=== PATIENT | male | born 1985 | race Caucasian/White ===

== ENCOUNTER 2019-04-11 15:19 | Emergency (ER) | payer SELFPAY ==
[~2019-04-11] VITALS: Ht 188 cm; Wt 90.7 kg
== END 2019-04-11 20:58 | disposition short-term general hospital (02) ==
LOC: ED 15:19
DX: N15.1 Renal and perinephric abscess (principal); N12 Tubulo-interstitial nephritis, not specified as acute or chronic; F17.200 Nicotine dependence, unspecified, uncomplicated; Z88.0 Allergy status to penicillin
CPT/HCPCS: 74177; 80053; 81001; 83605; 83690; 85025; 99285-25; J0696; J1170; J2270; J2405; J7030

== ENCOUNTER 2019-05-09 23:42 | Emergency (ER) | payer OTHER ==
[~2019-05-09] VITALS: Ht 188 cm; Wt 93.0 kg
--- OUTSIDE RECORDS SUMMARY | ~2019-05-09 | XMS | Encounter Summary ---
Demographics + + + | Address | [address] | | | [place] [address] | + + + | Home Phone | | + + + | Preferred Language | Unknown | + + + | Marital Status | Single | + + + | Oriental Orthodox Affiliation | Unknown | + + + | Race | Unknown | + + + | Ethnic Group | Unknown | + + + Author + + + | Author | [facility] | | | and [place] | + + + | Organization | [facility] | | | and [place] | + + + | Address | Unknown | + + + | Phone | Unavailable | + + + Support + + +---------+ + | Name | Relationship | Address | Phone | + + +---------+ + | Lourdes Jhaveri | ECON | Unknown | | + + +---------+ + Care Team Providers + +------+ + | Care Anime Designer Name | Role | Phone | + +------+ + | No, Physician | PCP | Unavailable | + +------+ + Reason for Visit Auth/Cert +--------+--------+ + + + + | Status | Reason | Specialty | Diagnoses / | Referred By | Referred To | | | | | Procedures | Contact | Contact | +--------+--------+ + + + + | | | | Diagnoses | | | | | | | perinephric | | | | | | | abscess | | | +--------+--------+ + + + + Encounter Details +--------+ + + + + | Date | Type | Department | Care Team | Description | +--------+ + + + + | 04/11/ | Hospital | [facility] | David Calvin, | Kidney, perinephric | | 2019 - | Encounter | [facility] | DO [address] | abscess; | | | | [address] | [place] [address] | Pyelonephritis; | | 05/07/ | [address] | [phone] | Tobacco abuse; | | 2019 | | [place], [place] | | Hepatitis C virus | | | | [phone] | Teresita Do MD | infection without | | | | [phone] | [address] | hepatic coma, | | | | | [place] [address] | unspecified | | | | | [phone] | chronicity; MRSA | | | | | | infection; IV drug | | | | | Daron Mendoza MD | user; Renal abscess, | | | | | [address] | left | | | | | [place] [address] | | | | | | [phone] | | | | | | | | | | | | Milagro Zambrano MD | | | | | | [address] | | | | | | [place] [address] | | | | | | [phone] | | | | | | | | | | | | Inez Avila DO | | | | | | [address] | | | | | | [place] [address] | | | | | | [phone] | | | | | | | | +--------+ + + + + Social History + +-------+ +--------+ + | Tobacco Use | Types | Packs/Day | Years | Date | | | | | Used | | + +-------+ +--------+ + | Current Every Day | | 0.5 | 24 | Started: 04/11/1995 | | Smoker | | | | | + +-------+ +--------+ + + +---+---+---+ | Smokeless Tobacco: | | | | | Never Used | | | | + +---+---+---+ + + | Tobacco Cessation: Ready to Quit: No | | Comments: declined | + + + + +---------+ + | Alcohol Use | Drinks/Week | oz/Week | Comments | + + +---------+ + | Not Currently | | | Last drink was 9 mos | | | | | ago, per pt | + + +---------+ + + + + | Sex Assigned at | Date Recorded | | | | + + + | Not on file | | + + + + + + + | Job Start Date | Occupation | Industry | + + + + | Not on file | Not on file | Not on file | + + + + + + + + | Travel History | Travel Start | Travel End | + + + + + + | No recent travel history available. | + + documented as of this encounter Last Filed Vital Signs + + + + + | Vital Sign | Reading | Time Taken | Comments | + + + + + | Blood Pressure | 147/78 | 05/07/2019 12:45 PM | | | | | PST | | + + + + + | Pulse | 89 | 05/07/2019 12:45 PM | | | | | PST | | + + + + + | Temperature | 36.8 C (98.3 F) | 05/07/2019 12:45 PM | | | | | PST | | + + + + + | Respiratory Rate | 20 | 05/07/2019 12:45 PM | | | | | PST | | + + + + + | Oxygen Saturation | 98% | 05/07/2019 12:45 PM | | | | | PST | | + + + + + | Inhaled Oxygen | - | - | | | Concentration | | | | + + + + + | Weight | 94 kg (207 lb 3.7 | 05/06/2019 8:15 PM | | | | oz) | PST | | + + + + + | Height | 188 cm (6' 2") | 04/11/2019 10:47 PM | | | | | PDT | | + + + + + | Body Mass Index | 26.61 | 04/11/2019 10:47 PM | | | | | PDT | | + + + + + documented in this encounter Functional Status + + + + | Functional Status | Response | Date of Assessment | + + + + | Are you blind or do you have serious | No | 04/11/2019 | | difficulty seeing, even when wearing | | | | glasses? | | | + + + + | Do you have serious difficulty walking or | No | 04/11/2019 | | climbing stairs? (5 years old or older) | | | + + + + | Do you have difficulty dressing or bathing? | No | 04/11/2019 | | (5 years old or older) | | | + + + + | Because of a physical, mental, or emotional | No | 04/11/2019 | | condition, do you have difficulty doing | | | | errands alone such as visiting a doctor's | | | | office or shopping? [15 years old or | | | | older)] | | | + + + + + + + + | Cognitive Status | Response | Date of Assessment | + + + + | Because of a physical, mental, or emotional | No | 04/11/2019 | | condition, do you have serious difficulty | | | | concentrating, remembering, or making | | | | decisions? (5 years old or older) | | | + + + + documented as of this encounter Medications at Time of Discharge + + + +---------+ + + | Medication | Sig | Dispensed | Refills | Start | End Date | | | | | | Date | | + + + +---------+ + + | DAPTOmycin | Inject 500 mg into | 22 each | 0 | 04/18/20 | | | (CUBICIN) IVPB 6 | the vein every 24 | | | 19 | 9 | | mg/kg = 500 | hours for 22 days. | | | | | | mgIndications: | Outpatient IV | | | | | | Intra-Abdominal | antibiotics will | | | | | | Infection | start following | | | | | | | discharge from the | | | | | | | hospital, regardless | | | | | | | of the indicated | | | | | | | start date on the | | | | | | | prescription. The | | | | | | | stop date IS CORRECT | | | | | | | regardless of the | | | | | | | quantity indicated. | | | | | | | The stop date is | | | | | | | inclusive, meaning | | | | | | | all scheduled doses | | | | | | | must be given on the | | | | | | | date that is listed | | | | | | | as the stop date. | | | | | | | Indications: | | | | | | | Infection Within the | | | | | | | Abdomen | | | | | + + + +---------+ + + documented as of this encounter Progress Notes David Morataya MD - 05/07/2019 12:36 PM PSTFormatting of this note might be different fro m the original. Interventional Radiology Progress Note Patient Name: Timothy Conrad Date of : 1985 Consulting Provider: David Morataya MD, MD, PhD Interval History/Subjective: Timothy Conrad is a 34 y.o. male with recurrent left renal abscess, leukocytosis. Request for drainage. Labs: 3 Day Labs: Recent Labs Lab 05/07/19 0446 05/06/19 1336 05/05/19 0430 05/04/19 0628 05/03/19 0445 WBC 11.02* 13.57* 14.37* -- -- 10.62 HGB 11.3* 12.0* 12.1* -- -- 12.0* HCT 33.6* 36.0* 36.3* -- -- 36.2* PLT 190 226 223 -- -- 265 NA 134* -- 137 -- -- 139 K 4.0 -- 3.9 4.2 < > 3.8 CL 100 -- 102 -- -- 105 CO2 31 -- 31 -- -- 31 BUN 9 -- 10 -- -- 7* CALCIUM 8.8 -- 8.8 -- -- 9.0 < > = values in this interval not displayed. Pertinent Imaging/Procedures: Ct Abdomen W Contrast Result Date: 04/15/2019 CT ABDOMEN WITH CONTRAST CLINICAL INFORMATION: Follow-up renal abscess drainage. COMPARISON : CT GUIDED DRAIN ABSCESS (04/12/2019); PROCEDURE: Axial images through the abdomen after th e administration of 100 mL Omnipaque 350 intravenous contrast. Multiplanar reconstructions. At least one of the following CT dose optimization techniques were used: Automated exposure control; Adjustment of mA and/or kV according to patient size; Use of iterative reconstruct ion technique. FINDINGS: LUNG BASES: No significant pulmonary abnormality. No pleural effusi on or pneumothorax. ABDOMEN Liver and Biliary: Increased craniocaudal length of liver measur ing 24.2 cm. Mild periportal edema. The gallbladder is partially distended. No biliary di lation. Pancreas, Spleen and Adrenals: Enlarged spleen measuring approximately 16.5 cm in cr aniocaudal length. Normal pancreas and both adrenals. Kidneys: The right kidney is normal i n size and enhancement pattern. Enlarged edematous left kidney with pararenal edema. There is decreased enhancement in lower pole of the left kidney with a heterogeneous attenuation a germain measuring 6.3 x 4.7 x 4.8 cm, image 88/series 3, image 49/series 6. Additional smaller intrarenal area of heterogeneous attenuation in interpolar left kidney measuring 3.2 x 3.1 x 2.9 cm. There is marked infiltration of pararenal fat with thickening of anterior and post erior pararenal fascia. Percutaneous pigtail catheter in-situ in left posterior pararenal s pace. Bowel: No small bowel or colonic dilation or adjacent inflammation. Vessels: No signif icant abnormality in the aorta or its proximal branches. No significant abnormality in the p ortal veins, mesenteric veins or systemic veins. Lymph Nodes: Multiple enlarged retroperiton eal lymph nodes. The index left para-aortic lymph node measuring 1.4 cm, image 84/series 3, nonspecific, probably reactive. The index inter aortocaval lymph node measuring 1.6 cm, im age 95/series 3. Peritoneum and Retroperitoneum: Small amount of fluid in left paracolic gut ter. Retroperitoneal left pararenal fat infiltration with thickening of anterior and early childhood education coordinator ior pararenal fascia. No pneumoperitoneum. BODY WALL Soft Tissues: No bowel or inflamed fat containing hernia, mass or hemorrhage. Mildly elevated right dome of the diaphragm. Mild subcutaneous edema of the body wall. Small fat containing paraumbilical hernia. Bones: No a cute fracture or vertebral end plate destruction. No lytic or blastic lesion. Moderate dege nerative disc disease at L4-L5 and L5-S1. Multiple Schmorl nodes at L4-L5. *Complicated acute left pyelonephritis with intrarenal abscess/phlegmon in lower pole of th e left kidney measuring 6.3 x 4.7 x 4.8 cm, causing renal capsular bulge. *Additional area o f focal pyelonephritis/small organized abscess or phlegmon in interpolar left kidney measuri ng 3.2 x 3.1 x 2.9 cm. Adjacent pigtail catheter in-situ in left posterior pararenal space. Interval decrease in size of the left pararenal abscess, status post percutaneous drainage. *Small amount of free fluid in left paracolic gutter. *Multiple enlarged retroperitoneal lym ph nodes, nonspecific, probably reactive. *Hepatosplenomegaly. *Additional findings as detai led above. Signed by: Liza Zeng, Arnold Sign Date/Time: 04/15/2019 12:[address] Abdomen Pelvis W Contrast Result Date: 05/05/2019 CT ABDOMEN AND PELVIS WITH CONTRAST CLINICAL INFORMATION: Renal cyst. Follow up. COMPARISON : CT ABDOMEN PELVIS W CONTRAST (04/20/2019) PROCEDURE: Axial images through the abdomen and pelvis after the administration of 100 ml Omnipaque 350 intravenous contrast. Multiplanar re constructions. At least one of the following CT dose optimization techniques were used: Auto mated exposure control; Adjustment of mA and/or kV according to patient size; Use of iterati ve reconstruction technique. FINDINGS: LUNG BASES: No significant abnormality appreciated. A BDOMEN Liver and Biliary: Liver appears unremarkable. Gallbladder appears to be contracted. Pancreas, Spleen and Adrenals: Mild splenomegaly. The pancreas, and adrenal glands appear unremarkable. Kidneys: Interval removal of the previously noted percutaneous drainage cathet er in the lower pole the left kidney. Heterogeneous round density in the lower pole of the kidney measuring approximately 5 cm x 5.3 cm, previously 6 cm x 5 cm. Moderate stranding, a nd small amount of perinephric hemorrhagic material, unchanged. 1 Right kidney appears unrem arkable. ABDOMEN AND PELVIS Bowel: Appendix is seen on series 2, image 140 and appears unrem arkable. No bowel obstruction or ileus seen. Vessels: Aorta does not appear aneurysmal. Mi ld atherosclerosis Lymph Nodes: Multiple enlarged abdominal and pelvic lymph nodes appear un changed. Peritoneum and Retroperitoneum: No ascites or free air seen. PELVIS Genitourinary: Urinary bladder appears to be mildly distended BODY WALL Soft Tissues: No significant abnorm ality appreciated. Bones: No acute or destructive osseous process seen. 1. Interval removal of the previously noted percutaneous drainage catheter in the lower bassam e the left kidney. Heterogeneous round density in the lower pole of the kidney measuring ap proximately 5 cm x 5.3 cm, previously 6 cm x 5 cm. Differential considerations include malig nawaf, hemorrhagic mass, and/or hematoma. 2. Abdominal and pelvic lymphadenopathy, unchanged , concerning for metastatic disease. 3. Mild splenomegaly. Signed by: Liza Fulton, Steve Sign Date/Time: 05/05/2019 8:[address] Abdomen Pelvis W Contrast Result Date: 04/20/2019 CT ABDOMEN AND PELVIS WITH CONTRAST CLINICAL INFORMATION: Abdominal infection suspected. fo llow-up renal and perirenal abscesses, r/o abdominal abscess. COMPARISON: CT GUIDED DRAIN AB SCESS (04/16/2019); CT ABDOMEN W CONTRAST (04/15/2019); CT GUIDED DRAIN ABSCESS (04/12/2019) ; PROCEDURE: Axial images through the abdomen and pelvis after the administration of 100 ml Omnipaque 350 intravenous contrast. Multiplanar reconstructions. At least one of the followi ng CT dose optimization techniques were used: Automated exposure control; Adjustment of mA a nd/or kV according to patient size; Use of iterative reconstruction technique. FINDINGS: RAS G BASES: No significant pulmonary abnormality. No pleural effusion or pneumothorax. Some as ymmetric scarring in the right lung base. Stable. ABDOMEN Liver and Biliary: No solid hepati c lesion, but there is diffuse periportal edema. No cirrhosis. Vascular enhancement. Chelsea ures 24 cm in the superior inferior dimension at the level of the midclavicular line. Gallbl adder not distended, no gallstones or pericholecystic fluid. Pancreas: Normal to technique w ithout peripancreatic fluid collection or intrinsic lesion Spleen: Marked splenomegaly but w ithout nearby fluid or adjacent lesion. Measures about 15 x 8 x 16 cm. Normal adrenals Kidn eys: Structurally normal right kidney. Left kidney: Known intrasubstance parenchymal abscess in the midbody in lower pole of the left kidney, now approximated by pigtail catheter. The fluid collection immediately inferior to the left kidney measures about 3.7 by 3.7 by 1.9 cm and may not be drained by the catheter. With marked inflammatory changes in the anterior pa ra and perinephric renal spaces on the left and the pole left kidney seems edematous and sylvie ewhat enlarged-especially the lower pole. Likely postprocedural gas about the catheter ABDO MEN AND PELVIS Bowel: No small bowel or colonic dilation or adjacent inflammation. No append iceal dilation or inflammation. Vessels: No significant abnormality in the aorta or its prox imal branches. No significant abnormality in the portal veins, mesenteric veins or systemic veins. Lymph Nodes: Marked periaortic retroperitoneal lymphadenopathy and marked confluent l ymphadenopathy at the gerson hepatitis. Compared to the prior examination, these findings are preexistent, and stable to technique. No free air. No ascites. PELVIS Genitourinary: Dista l ureters and bladder appear normal. No pelvic masses. BODY WALL Soft Tissues: No bowel or inflamed fat containing hernia, mass or hemorrhage. Bones: Focal disc endplate disease at L4 -5 with osteophytosis, subchondral sclerosis and cystic changes 1. Pigtail catheter now centrally located in the central phlegmonous section of the mid lo wer pole of the left kidney Marked local inflammatory changes and edema. Preexistent and wi thin the spectrum of expected evolving findings with severe renal infection and intervention 2. Pimento like perinephric inflammatory fluid collection inferior to the lower pole of t he left kidney. An appreciable collection of stable infected fluid, not seemingly drained b y the catheter. 3. Marked but stable retroperitoneal lymphadenopathy and marked confluent l ymphadenopathy in the gerson hepatitis. 4. Periportal edema and hepatosplenomegaly Signed by : Liza Alex, Maverick Sign Date/Time: 04/20/2019 1:[address] Guided Drain Abscess Result Date: 04/17/2019 CT GUIDED LEFT KIDNEY ABSCESS DRAINAGE CLINICAL INFORMATION: 34-year-old male with left luisa al abscess and perinephric abscess status post perinephric abscess drainage. Patient contin ues to have leukocytosis and intermittent fevers and drainage of the left intraparenchymal r enal abscess is requested. COMPARISON: None. PROCEDURE: The risks, benefits and alternatives were discussed with the patient; consent was obtained and placed in the patient's chart. Th e risks included but were not limited to bleeding, infection, non target organ injury. The p atient was placed in the CT scanner and imaging was obtained through the abdomen. A reprodu cible target was demonstrated. The skin overlying the site of interest was localized and mar ked. The skin was sterilely prepped and draped in the usual fashion. Local lidocaine was adm inistered in the skin and underlying tissues. A wire was passed through the existing cathet er into the perinephric abscess. This collection was in line with the intraparenchymal crow l abscess. A new catheter with metal stiffener was passed over the wire, the wire were kendell charly, and stylette introduced into the metal stiffener. The catheter was advanced as a unit into the intraparenchymal renal abscess. The inner stylet was removed, a wire was passed in to the intra parenchymal abscess, and images acquired confirming positioning. Next, the meta l stiffener was removed and the catheter advanced and formed over the wire. The position wa s confirmed with CT and the catheter was secured to the skin. The patient tolerated the pro cedure well without complication. Conscious sedation was administered. The nurse administer ed fentanyl medications during the examination and monitored blood pressure, heart rate, and pulse oximeter. Physician intraservice time of 30 minutes. At least one of the following CT dose optimization techniques were used: Automated exposure control; Adjustment of mA and/or kV according to patient size; Use of iterative reconstruction technique. FINDINGS: CT ident ified the intraparenchymal left renal abscess which was selected for drainage. Intra procedu ral imaging confirmed appropriate catheter placement. Post procedure imaging showed no evide nce for complication. Successful CT-guided left intraparenchymal renal abscess drainage. Signed by: Liza Morataya David Sign Date/Time: 04/17/2019 6:[address] Guided Drain Abscess Result Date: 04/13/2019 CT GUIDED LEFT PERINEPHRIC ABSCESS DRAINAGE CLINICAL INFORMATION: 34-year-old male with lef t perinephric abscess. COMPARISON: None. PROCEDURE: The risks, benefits and alternatives wer e discussed with the patient; consent was obtained and placed in the patient's chart. The ri sks included but were not limited to bleeding, infection, non target organ injury. The patie nt was placed in the CT scanner and imaging was obtained through the abdomen and pelvis. A reproducible target was demonstrated. The skin overlying the site of interest was localized and marked. The skin was sterilely prepped and draped in the usual fashion. Local lidocaine was administered in the skin and underlying tissues, and a tiny dermatotomy was made. Under CT guidance, a 18 gauge needle system was used to access the target. A wire was positioned t hrough the needle system into the fluid collection. Serial dilatation was performed to the a ppropriate level and a 10 Spanish multipurpose drainage catheter was placed and secured to th e skin under CT guidance. The patient tolerated the procedure well without complication. Con scious sedation was administered. The nurse administered fentanyl and Versed medications du ring the examination and monitored blood pressure, heart rate, and pulse oximeter. Physician intraservice time of 30 minutes. At least one of the following CT dose optimization techniq ues were used: Automated exposure control; Adjustment of mA and/or kV according to patient s ize; Use of iterative reconstruction technique. FINDINGS: CT identified the left perinephric abscess, which was selected for drainage. Intra procedural imaging confirmed appropriate ca theter placement. Post procedure imaging showed no evidence for complication. Successful CT-guided left perinephric abscess drainage. Signed by: Liza Morataya David Sign Date/Time: 04/13/2019 6:[address] Guided Drain Abscess Renal Result Date: 04/24/2019 CT GUIDED DRAINAGE LEFT PARARENAL ABSCESS CLINICAL INFORMATION: Residual undrained left luisa al collection PROCEDURE: Prior to the procedure, risks and benefits were explained to the pa tient and informed written and verbal consent obtained. Patient was placed on the CT gantry and initial localizing scans were performed. Using lidocaine for local anesthesia and intrav enous sedation, the region is punctured under CT guidance. Aspiration was performed yieldin g 8 mL of hemorrhagic and purulent fluid. The specimen was submitted to the laboratory for Gram stain and culture. An 0.35 guide wire is placed into the collection and the tract dilat ed up to 10 Spanish. A 10 Spanish catheter is then placed over the wire. Patient tolerated th e procedure well. No immediate complications. Conscious sedation was administered. The nurs e administered for 47 minutes, 200 mcg fentanyl and 4 mg Versed used for sedation. The keyanna ent was monitored by the nurse during the examination and monitored blood pressure, heart ra te, and pulse oximeter. Physician intraservice time of 47 minutes. Estimated Blood Loss: Les s than 10 cc's. At least one of the following CT dose optimization techniques were used: Aut omated exposure control; Adjustment of mA and/or kV according to patient size; Use of iterat jerome reconstruction technique. Uncomplicated drainage of left pararenal abscess. 8 mL of hemorrhagic and purulent fluid w as aspirated. A 10 Spanish locking pigtail catheter is placed. Signed by: Liza Zeng Pushp ender Sign Date/Time: 04/24/2019 2:56 PM Physical Examination: Vitals: 05/07/19 0703 BP: 138/82 Pulse: 83 Resp: 18 Temp: 36.7 C (98 F) Physical Exam Constitutional: He is oriented to person, place, and time and well-developed, well-nourishe d, and in no distress. HENT: Head: Normocephalic. Eyes: Pupils are equal, round, and reactive to light. Cardiovascular: Normal rate. Pulmonary/Chest: Effort normal. Abdominal: Soft. Neurological: He is alert and oriented to person, place, and time. GCS score is 15. Skin: Skin is warm and dry. Psychiatric: Mood and affect normal. Assessment and Plan: 34M w recurrent left renal abscess, request for drainage. - L renal abscess drain placement today, CT guidance, moderate sedation, position: prone Electronically signed by: David Mroataya MD 05/07/2019 12:36 PM Vascular and Interventional Radiology Bobby Marti MD - 05/07/2019 12:22 PM PSTFormatting of this note might be different from the [facility] Service: Infectious Diseases Progress Note Hospital Day: LOS: 26 days Post-Op Day: * No surgery found * CC: Follow-up on renal abscess SUBJECTIVE/OVERNIGHT EVENTS Continues on iv antibiotic therapy. Denies new concerns and denies side effects. Tolerating antibiotics well. No acute events over the last 24 hours. Repeat white blood cell count is trending down. The patient has been afebrile. Still reports some stiffness in his left lower back. Intake/Output Summary (Last 24 hours) at 05/07/2019 1222 Last data filed at 05/07/2019 0917 Gross per 24 hour Intake 1990 ml Output Net 1990 ml REVIEW OF SYSTEMS . GI: denies diarrhea. Skin: denies skin rash. Constitutional: denies fever and chills. Respi ratory: denies difficulty breathing. Other systems were negative. MEDICATIONS: Scheduled Meds: DAPTOmycin 6 mg/kg Intravenous Q24H enoxaparin 40 mg Subcutaneous Daily nicotine 1 patch Transdermal Daily sodium chloride 0.9% injection 20 mL Intracatheter 2 times per day Continuous Infusions: PRN Meds:.acetaminophen, ibuprofen, LORazepam, ondansetron, oxyCODONE, polyethylene glycol, Potassium replacement - NON ICU AND Potassium AND potassium chloride AND potass ium chloride PHYSICAL EXAM Vital Signs: BP 138/82 | Pulse 83 | Temp 36.7 C (98 F) (Oral) | Resp 18 | Ht 1.88 m (6' 2") | W t 94 kg (207 lb 3.7 oz) | SpO2 96% | BMI 26.61 kg/m Focused exam shows: General exam: No distress, cooperative with exam. HEENT: sclera non-icteric, no visible oral thrush Cardiovascular: regular rate and rhythm Lungs: no tachypnea, clear breath sounds. Mildly decreased at bases Abdomen: no distension, bowel sounds present Extremities/MSK: No edema, no joint effusions Back: Localized left CVA tenderness. Skin: No lesions, normal turgor Neurologic: Awake, cranial nerves intact. Follows commands. Venous access: PIV. LABS: All labs were reviewed. Recent Results (from the past 24 hour(s)) CBC with Differential Result Value Ref Range WBC 13.57 (H) 3.80 - 11.00 K/uL RBC 4.30 4.20 - 5.70 M/uL Hemoglobin 12.0 (L) 13.2 - 17.0 g/dL Hematocrit 36.0 (L) 39.0 - 50.0 % MCV 83.6 80.0 - 100.0 fl MCH 28.0 27.0 - 34.0 pg MCHC 33.4 32.0 - 35.5 g/dL RDW-SD 42.4 37 - 53 fl Platelet Count 226 150 - 400 K/uL MPV 9.1 fl Diff Type AUTOMATED % Neutrophils 68.91 % % Lymphocytes 20.50 % Monocyte % 9.40 % Eosinophils % 1.09 % Basophils % 0.10 % Neutrophils, Absolute 9.35 (H) 1.90 - 7.40 K/uL Absolute Lymphocytes 2.78 1.00 - 3.90 K/uL Absolute Monocytes 1.28 (H) 0.00 - 0.80 K/uL Eosinophils, Absolute 0.15 0.00 - 0.50 K/uL Basophils, Absolute 0.01 0.00 - 0.10 K/uL Basic Metabolic Panel Result Value Ref Range Na 134 (L) 135 - 145 mmol/L K 4.0 3.5 - 4.9 mmol/L Cl 100 99 - 109 mmol/L CO2 31 23 - 32 mmol/L Anion Gap 7 5 - 20 mmol/L Glucose 92 65 - 99 mg/dL BUN 9 8 - 25 mg/dL Creatinine 0.8 0.70 - 1.30 mg/dL BUN/Creatinine Ratio 11 Calcium 8.8 8.5 - 10.5 mg/dL Estimated GFR >60 >60 mL/min/1.73m2 CBC with Differential Result Value Ref Range WBC 11.02 (H) 3.80 - 11.00 K/uL RBC 4.00 (L) 4.20 - 5.70 M/uL Hemoglobin 11.3 (L) 13.2 - 17.0 g/dL Hematocrit 33.6 (L) 39.0 - 50.0 % MCV 84.1 80.0 - 100.0 fl MCH 28.2 27.0 - 34.0 pg MCHC 33.5 32.0 - 35.5 g/dL RDW-SD 41.6 37 - 53 fl Platelet Count 190 150 - 400 K/uL MPV 9.8 fl Diff Type AUTOMATED % Neutrophils 60.61 % % Lymphocytes 26.47 % Monocyte % 10.38 % Eosinophils % 1.90 % Basophils % 0.64 % Neutrophils, Absolute 6.68 1.90 - 7.40 K/uL Absolute Lymphocytes 2.92 1.00 - 3.90 K/uL Absolute Monocytes 1.14 (H) 0.00 - 0.80 K/uL Eosinophils, Absolute 0.21 0.00 - 0.50 K/uL Basophils, Absolute 0.07 0.00 - 0.10 K/uL Microbiology Results (Last 14 Days by Collected Date with Culture/Sensitivity) Procedure Component Value Units Date/Time Culture, Blood [[id number]] Collected: 05/04/19 1024 Order Status: Completed Lab Status: Preliminary result Updated: 05/05/191615 Specimen: Peripheral Blood Special Requests RT HAND Special Requests [place] [facility] [place] [address] RESULT NO GROWTH AT THIS TIME RESULT Testing performed at [address] [address] Comment: Testing performed at [facility], [address] [place] [address] Culture, Blood [[id number]] Collected: 05/04/19 1017 Order Status: Completed Lab Status: Preliminary result Updated: 05/05/19 161 Specimen: Peripheral Blood Special Requests RT AC Special Requests Testing performed at [facility] [place] [address] RESULT NO GROWTH AT THIS TIME RESULT Testing performed at [address] [address] Comment: Testing performed at [facility], [address] [place] [address] Culture, Wound, Smear, w/Anaerobe [[id number]] (Abnormal) (Susceptibility) Collected: 1440 Order Status: Completed Lab Status: Final result Updated: 04/28/19 1030 Gram Stain Result -- 3+ WBC'S SEEN Gram Stain Result -- 4+ GRAM POSITIVE COCCI Gram Stain Result Testing performed at [facility], [address] [place] [address] RESULT -- 4+ METHICILLIN RESISTANT S. AUREUS (MRSA) Susceptibility Staphylococcus aureus,Methicillin resistant (MRSA) (1) Antibiotic Interpretation Microscan Method Status Clindamycin Sensitive SUSCEPTIBLE PATRICK Final Erythromycin Resistant RESISTANT PATRICK Final Gentamicin Sensitive SUSCEPTIBLE PATRICK Final Levofloxacin Resistant RESISTANT PATRICK Final Moxifloxacin Intermediate INTERMEDIATE PATRICK Final Oxacillin Resistant RESISTANT PATRICK Final Tetracycline Sensitive SUSCEPTIBLE PATRICK Final Trimethoprim + Sulfamethoxazole Sensitive SUSCEPTIBLE PATRICK Final Vancomycin Sensitive SUSCEPTIBLE PATRICK Final Testing performed at [facility], [address] [place] [address] Culture, Body Fluid Sterile [[id number]] Collected: 04/24/19 1436 Order Status: Canceled Lab Status: No result Specimen: Body Fluid from Abscess Microbiology Results (72 hrs) No results found for the last 72 hours. IMAGING: No new images for review today. ASSESSMENT & PLAN The patient is a 34 y.o.-year-old male with the following problems: Active Hospital Problems Diagnosis Date Noted IV drug user 04/24/2019 Kidney, perinephric abscess 04/11/2019 Pyelonephritis 04/11/2019 Tobacco abuse 04/11/2019 Resolved Hospital Problems No resolved problems to display. 1. Left renal abscess secondary to MRSA Patient has had difficult to control renal abscess with multiple percutaneous drains placed first on April 12, then April 16 and again on April 24, 2019. The patient was unable to achieve therapeutic vancomycin levels despite every 8 hour dosing . Patient is currently on intravenous daptomycin. Persistent inflammatory process in the lower pole of the left kidney. Urology will be consulted. Patient has been on intravenous antibiotic therapy now for almost 4 weeks and due to the re fractory MRSA infection, he is at risk of nephrectomy given the refractory nature of his in fection. Get ESR CRP for baseline and follow up. 2. Chronic hepatitis C, not a candidate for treatment at the moment due to IVDU. 3. Persistent leukocytosis 4. Persistent fevers 5. Intravenous drug user, not a candidate for OPAT. The patient will remain hospitalized . Patient updated on his/her condition today. Discussed with attending provider: Inez Avila DO . Bobby Albert MD, MPH Infectious Diseases 05/07/19 pencerInez DO - 05/07/2019 8:18 AM PSTFormatting of this note might be different from the or iginal. [facility] Service: Hospitalist Progress Note Hospital Day: LOS: 26 days [facility] Briefly, Mr. Conrad is a 34-year-old male history of hepatitis C, IV methamphetamine drug ab use, admitted on 04/11/2019 with left flank pain. CT scan showed 6.3 cm renal abscesses. Int erventional radiology was consulted and patient underwent CT-guided drainage. Cultures grew MRSA, started on daptomycin. Repeat CT scan showed continued fluid, required repeat CT-guid ed drainage and drain placement, left perinephritic tube drained approximately 30 mL's serou s fluid. Repeat a CT scan done on showing inadequate drainage some parts of abscess, r epeat CT-guided drainage completed. After extended antibiotic treatment course drains were r emoved 04/30/19 by IR. PICC line placed, remains on IV daptomycin. Due to patient's prior history of IV methamphet amine drug abuse, patient needs to be monitored in a controlled environment, he has been agr eeable. Will remain inpatient until completion of antibiotics. Patient developed recurrent low grade fevers, 100.3F, 100.6F. Repeat CT completed 05/05/19 showing continued mass/abscess/hematoma. Case discussed again with IR, they will see patient today. May require nephrectomy if further IR intervention cannot produce improvement. SUBJECTIVE Stable overnight, Tmax 99.1F. Blood cultures remain negative. Repeat CT shows 5x5.3 cm mass from previous 6x5 cm. Patient appears comfortable. Encouarged ambulation around the halls as patient has not had any significant exercise for week. Good oral intake. Denies chills, n/v, diarrhea. No shortn ess of breath, cough, or chest pain. Scheduled Medications DAPTOmycin, 6 mg/kg, Intravenous, Q24H enoxaparin, 40 mg, Subcutaneous, Daily nicotine, 1 patch, Transdermal, Daily sodium chloride 0.9% injection, 20 mL, Intracatheter, 2 times per day PRN Medications acetaminophen, ibuprofen, LORazepam, ondansetron, oxyCODONE, polyethylene glycol, Potassium replacement - NON ICU AND Potassium AND potassium chloride AND potassium chlori de OBJECTIVE Vital Signs: BP 138/82 | Pulse 83 | Temp 36.7 C (98 F) (Oral) | Resp 18 | Ht 1.88 m (6' 2") | W t 94 kg (207 lb 3.7 oz) | SpO2 96% | BMI 26.61 kg/m Patient Vitals for the past 24 hrs: BP Temp Temp src Pulse Resp SpO2 Weight 05/07/19 0703 138/82 36.7 C (98 F) Oral 83 18 96 % 05/07/19 0436 130/62 36.9 C (98.5 F) Oral 83 16 97 % 05/06/19 2323 156/82 37.1 C (98.8 F) Oral 93 18 98 % 05/06/192014 147/79 37.2 C (98.9 F) Oral 89 18 99 % 94 kg (207 lb 3.7 oz) 05/06/19 1550 150/80 37.1 C (98.8 F) Oral 91 16 96 % 05/06/19 1100 144/86 36.8 C (98.3 F) Oral 83 18 99 % 14:LAST:1 91.5 kg (04/12/19427) Last: 94 kg (05/06/192014) Difference: 2.5kg Weight change: Intake/Output Summary (Last 24 hours) at 05/07/2019 0818 Last data filed at 05/07/2019 043 Gross per 24 hour Intake 1971 ml Output Net 1971 ml Body mass index is 26.61 kg/m. Physical Exam Constitutional: Appearance: He is well-developed and well-nourished. Comments: Patient agitated after discussion re: possible nephrectomy. HENT: Head: Normocephalic and atraumatic. Eyes: Extraocular Movements: EOM normal. Pupils: Pupils are equal, round, and reactive to light. Cardiovascular: Rate and Rhythm: Normal rate and regular rhythm. Pulmonary: Effort: Pulmonary effort is normal. Breath sounds: Normal breath sounds. Abdominal: General: Bowel sounds are normal. There is no distension. Palpations: Abdomen is soft. Musculoskeletal: Normal range of motion. Skin: General: Skin is warm and dry. Findings: No erythema. Comments: S/P removal of drain Neurological: Mental Status: He is alert and oriented to person, place, and time. Cranial Nerves: No cranial nerve deficit. Psychiatric: Mood and Affect: Mood and affect normal. Judgment: Judgment normal. DATA Recent Labs 05/07/19 0446 05/06/19 1336 WBC 11.02* 13.57* HGB 11.3* 12.0* HCT 33.6* 36.0* PLT 190 226 MCV 84.1 83.6 Recent Labs Lab 05/07/19 0446 05/05/19 0430 05/04/19 0628 05/03/19 0445 NA 134* 137 -- -- 139 K 4.0 3.9 4.2 < > 3.8 CL 100 102 -- -- 105 CO2 31 31 -- -- 31 ANIONGAP 7 8 -- -- 7 BUN 9 10 -- -- 7* CREA 0.8 0.8 -- -- 0.7 CALCIUM 8.8 8.8 -- -- 9.0 < > = values in this interval not displayed. Recent Labs 05/07/196 05/05/19 0430 GLU 92 116* No results for input(s): TROPONIN, BNP in the last 72 hours. Imaging: Impression: 1. Interval removal of the previously noted percutaneous drainage catheter in the lower pole the left kidney. Heterogeneous round density in the lower pole of the kidney measuring approximately 5 cm x 5.3 cm, previously 6 cm x 5 cm. Differential considerations include malignancy, hemorrhagic mass, and/or hematoma. 2. Abdominal and pelvic lymphadenopathy, unchanged, concerning for metastatic disease. 3. Mild splenomegaly. PROBLEM LIST Principal Problem: Kidney, perinephric abscess Active Problems: Pyelonephritis Tobacco abuse IV drug user Resolved Problems: * No resolved hospital problems. * Assessment and Plan: Sepsis secondary to Left pyelonephritis, resolved Renal abscess secondary to MRSA S/p placement of drain 04/09/19, then again 04/16/2019 due to persistent numerous renal abs cesses -Repeat CT scan 04/20/2019, improvement though appears to have an abscess not drained by ca theter -Dr. Morataya/IR --repeat CT-guided renal abscess 04/24/19 drainage. -Body fluid cultures growing MRSA -PICC line placed 04/19/2019 -Patient will require 4 weeks of IV daptomycin, till May 10 -Drains removed 04/30/19 but patient continues to spike low grade fevers 99.1F, repeat bloo d cultures collected 05/04/19 show no growth to date - Repeat imaging above. 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 Nair, who was kind enough to review imaging. Patient may require nephrectomy, would recommend IR drainage again if at all possible but if not nephrectomy is indicated. Unfortunately does not have privileges [facility] nephrectomy at [facility]. Will re-discuss with IR. Will need to consult Dr. Souza on Tuesday. Nicontine use Refuses nicotine patch History of methamphetamine abuse Disposition: Inpatient. Code Status: Full Code Inez Avila DO 05/07/2019 8:18 AM Michelle May RN - 05/07/2019 6:16 AM PSTNo acute changes this shift. Medicated for pain per AUG.Electronica lly signed by Michelle Burden RN at 05/07/2019 6:16 AM Bobby Marti MD - 05/06/2019 11:28 AM PST [facility] Service: Infectious Diseases Progress Note Hospital Day: LOS: 25 days Post-Op Day: * No surgery found * CC: Follow-up on renal abscess, MRSA infection. SUBJECTIVE/OVERNIGHT EVENTS Continues on iv antibiotic therapy. Denies new concerns and denies side effects. Tolerating antibiotics well. No acute events over the last [address] of the abdomen pelvis has shown persistent area of infection with heterogeneous r ound density in the lower pole of the kidney measuring 5 x 5.3 cm. There is also persistent reactive lymphadenopathy in the abdomen and pelvis. Splenomegaly was also noted. Intake/Output Summary (Last 24 hours) at 05/06/2019 1128 Last data filed at 05/06/2019 0745 Gross per 24 hour Intake 855 ml Output Net 855 ml REVIEW OF SYSTEMS . GI: denies diarrhea. Skin: denies skin rash. Constitutional: denies fever and chills. Respi ratory: denies difficulty breathing. Other systems were negative. MEDICATIONS: Scheduled Meds: DAPTOmycin 6 mg/kg Intravenous Q24H enoxaparin 40 mg Subcutaneous Daily nicotine 1 patch Transdermal Daily sodium chloride 0.9% injection 20 mL Intracatheter 2 times per day Continuous Infusions: PRN Meds:.acetaminophen, ibuprofen, LORazepam, ondansetron, oxyCODONE, polyethylene glycol, Potassium replacement - NON ICU AND Potassium AND potassium chloride AND potass ium chloride PHYSICAL EXAM Vital Signs: BP 142/88 | Pulse 83 | Temp 36.5 C (97.7 F) (Axillary) | Resp 18 | Ht 1.88 m (6' 2" ) | Wt 94 kg (207 lb 3.7 oz) | SpO2 96% | BMI 26.61 kg/m Focused exam shows: General exam: No distress, cooperative with exam. HEENT: sclera non-icteric, no visible oral thrush Cardiovascular: regular rate and rhythm Lungs: no tachypnea, clear breath sounds. Mildly decreased at bases Abdomen: no distension, bowel sounds present Back: Left CVA tenderness. Extremities/MSK: No edema, no joint effusions Skin: No lesions, normal turgor Neurologic: Awake, cranial nerves intact. Follows commands. Venous access: PIV. LABS: All labs were reviewed. No results found for this or any previous visit (from the past 24 hour(s)). Microbiology Results (Last 14 Days by Collected Date with Culture/Sensitivity) Procedure Component Value Units Date/Time Culture, Blood [[id number]] Collected: 05/04/19 1024 Order Status: Completed Lab Status: Preliminary result Updated: 05/05/19 1616 Specimen: Peripheral Blood Special Requests RT HAND Special Requests Testing [place] [facility] [place] [address];[place] [address] RESULT NO GROWTH AT THIS TIME RESULT Testing performed at [facility], [address] [place] [address] Comment: Testing performed at [facility], [address] [place] [address] Culture, Blood [[id number]] Collected: 05/04/19 1017 Order Status: Completed Lab Status: Preliminary result Updated: 05/05/19 161 Specimen: Peripheral Blood Special Requests RT AC Special Requests Testing performed at [facility];[address] [place] [address] RESULT NO GROWTH AT THIS TIME RESULT Testing performed at [facility], [address] [place] [address] Comment: Testing performed at [facility], [address] [place] [address] Culture, Wound, Smear, w/Anaerobe [[id number]] (Abnormal) (Susceptibility) Collected: 1440 Order Status: Completed Lab Status: Final result Updated: 04/28/19 1030 Gram Stain Result -- 3+ WBC'S SEEN Gram Stain Result -- 4+ GRAM POSITIVE COCCI Gram Stain Result Testing performed at [facility], [address] [place] [address] RESULT -- 4+ METHICILLIN RESISTANT S. AUREUS (MRSA) Susceptibility Staphylococcus aureus,Methicillin resistant (MRSA) (1) Antibiotic Interpretation Microscan Method Status Clindamycin Sensitive SUSCEPTIBLE PATRICK Final Erythromycin Resistant RESISTANT PATRICK Final Gentamicin Sensitive SUSCEPTIBLE PATRICK Final Levofloxacin Resistant RESISTANT PATRICK Final Moxifloxacin Intermediate INTERMEDIATE PATRICK Final Oxacillin Resistant RESISTANT PATRICK Final Tetracycline Sensitive SUSCEPTIBLE PATRICK Final Trimethoprim + Sulfamethoxazole Sensitive SUSCEPTIBLE PATRICK Final Vancomycin Sensitive SUSCEPTIBLE PATRICK Final Testing performed at [facility], [address] [place] [address] Culture, Body Fluid Sterile [[id number]] Collected: 04/24/19 1436 Order Status: Canceled Lab Status: No result Specimen: Body Fluid from Abscess Microbiology Results (72 hrs) Procedure Component Value Units Date/Time Culture, Blood [[id number]] Collected: 05/04/19 1024 Order Status: Completed Lab Status: Preliminary result Updated: 05/05/19 161 Specimen: Peripheral Blood Special Requests RT HAND Special Requests Testing performed at [facility] [place] [address] RESULT NO GROWTH AT THIS TIME RESULT Testing performed at [facility], [address] [place] [address] Comment: Testing performed at [facility], [address] [place] [address] Culture, Blood [[id number]] Collected: 05/04/19 1017 Order Status: Completed Lab Status: Preliminary result Updated: 05/05/19 1616 Specimen: Peripheral Blood Special Requests RT AC Special Requests Testing performed at [facility];[address] [place] [address];[place] [address] RESULT NO GROWTH AT THIS TIME RESULT Testing performed at [facility], [address] [place] [address] Comment: Testing performed at [facility], [address] [place] [address], [place] [address] IMAGING: Images of CT abdomen and pelvis reviewed. My interpretation: Persistent left renal phlegmon/abscess. ASSESSMENT & PLAN The patient is a 34 y.o.-year-old male with the following problems: Active Hospital Problems Diagnosis Date Noted IV drug user 04/24/2019 Kidney, perinephric abscess 04/11/2019 Pyelonephritis 04/11/2019 Tobacco abuse 04/11/2019 Resolved Hospital Problems No resolved problems to display. 1. Left renal abscess secondary to MRSA 2. Chronic hepatitis C, not a candidate for treatment at the moment due to IVDU. 3. Persistent leukocytosis 4. Persistent fevers 5. Intravenous drug user Patient has had difficult to control renal abscess with multiple percutaneous drains placed first on April 12, then April 16 and again on April 24, 2019. The patient was unable to achieve therapeutic vancomycin levels despite every 8 hour dosing . The patient has developed again leukocytosis and fever. He had CT of the kidney which shows persistent inflammatory process in the lower pole of le ft kidney. Patient has been on intravenous antibiotic therapy now for 3-1/2 weeks and due to the refra ctory MRSA infection, recommend urology consult for potential nephrectomy given the refracto ry nature of his infection. He will remain on daptomycin 6 mg/kg IV daily. Continue current antibiotic regimen. Repeat CBC and CMP in the am. Patient updated on his/her condition today. Discussed with attending provider: Inez Avila DO . Bobby Albert MD, MPH Infectious Diseases 05/06/19 pencerInez DO - 05/06/2019 8:35 AM PSTFormatting of this note might be different from the or iginal. [facility] Service: Hospitalist Progress Note Hospital Day: LOS: 25 days [facility]PITAL [facility] Briefly, Mr. Conrad is a 34-year-old male history of hepatitis C, IV methamphetamine drug ab use, admitted on 04/11/2019 with left flank pain. CT scan showed 6.3 cm renal abscesses. Int erventional radiology was consulted and patient underwent CT-guided drainage. Cultures grew MRSA, started on daptomycin. Repeat CT scan showed continued fluid, required repeat CT-guid ed drainage and drain placement, left perinephritic tube drained approximately 30 mL's serou s fluid. Repeat a CT scan done on showing inadequate drainage some parts of abscess, r epeat CT-guided drainage completed. After extended antibiotic treatment course drains were r emoved 04/30/19 by IR. PICC line placed, remains on IV daptomycin. Due to patient's prior history of IV methamphet amine drug abuse, patient needs to be monitored in a controlled environment, he has been agr eeable. Will remain inpatient until completion of antibiotics. Patient developed recurrent low grade fevers, 100.3F, 100.6F. Repeat CT completed 05/05/19. SUBJECTIVE Stable overnight, Tmax 99.1F. Blood cultures remain negative. Repeat CT shows 5x5.3 cm mass from previous 6x5 cm. Patient appears comfortable. Encouarged ambulation around the halls as patient has not had any significant exercise for week. Good oral intake. Denies chills, n/v, diarrhea. No shortn ess of breath, cough, or chest pain. Scheduled Medications DAPTOmycin, 6 mg/kg, Intravenous, Q24H enoxaparin, 40 mg, Subcutaneous, Daily nicotine, 1 patch, Transdermal, Daily sodium chloride 0.9% injection, 20 mL, Intracatheter, 2 times per day PRN Medications acetaminophen, ibuprofen, LORazepam, ondansetron, oxyCODONE, polyethylene glycol, Potassium replacement - NON ICU AND Potassium AND potassium chloride AND potassium chlori de OBJECTIVE Vital Signs: BP 142/88 | Pulse 83 | Temp 36.5 C (97.7 F) (Axillary) | Resp 18 | Ht 1.88 m (6' 2" ) | Wt 94 kg (207 lb 3.7 oz) | SpO2 96% | BMI 26.61 kg/m Patient Vitals for the past 24 hrs: BP Temp Temp src Pulse Resp SpO2 05/06/19 0722 142/88 36.5 C (97.7 F) Axillary 83 18 96 % 05/06/19 035 132/64 37.6 C (99.6 F) Oral 95 24 98 % 05/05/19 2300 137/69 37.1 C (98.7 F) Oral 94 24 99 % 05/05/192151 156/76 05/05/192149 164/85 05/05/192054 165/75 37.1 C (98.8 F) Oral 95 24 100 % 05/05/19 1537 150/80 36.7 C (98 F) Oral 76 26 100 % 05/05/19 1154 149/71 37 C (98.6 F) Oral 82 28 100 % 14:LAST:1 91.5 kg (04/12/19 042) Last: 94 kg (05/02/19355) Difference: 2.5kg Weight change: Intake/Output Summary (Last 24 hours) at 05/06/2019834 Last data filed at 05/05/20192052 Gross per 24 hour Intake 20 ml Output Net 20 ml Body mass index is 26.61 kg/m. Physical Exam Constitutional: Appearance: He is well-developed and well-nourished. HENT: Head: Normocephalic and atraumatic. Eyes: Extraocular Movements: EOM normal. Pupils: Pupils are equal, round, and reactive to light. Cardiovascular: Rate and Rhythm: Normal rate and regular rhythm. Pulmonary: Effort: Pulmonary effort is normal. Breath sounds: Normal breath sounds. Abdominal: General: Bowel sounds are normal. There is no distension. Palpations: Abdomen is soft. Musculoskeletal: Normal range of motion. Skin: General: Skin is warm and dry. Findings: No erythema. Comments: Bandage over left flank c/d/i. S/P removal of drain Neurological: Mental Status: He is alert and oriented to person, place, and time. Cranial Nerves: No cranial nerve deficit. Psychiatric: Mood and Affect: Mood and affect normal. Judgment: Judgment normal. DATA Recent Labs 05/05/19429 WBC 14.37* HGB 12.1* HCT 36.3* PLT 223 MCV 84.2 Recent Labs Lab 05/05/19429 05/04/19 0628 05/03/19 1243 05/03/19 0445 05/02/19 0432 NA 137 -- -- 139 -- 137 K 3.9 4.2 4.3 3.8 < > 3.4* CL 102 -- -- 105 -- 103 CO2 31 -- -- 31 -- 29 ANIONGAP 8 -- -- 7 -- 8 BUN 10 -- -- 7* -- 9 CREA 0.8 -- -- 0.7 -- 0.8 CALCIUM 8.8 -- -- 9.0 -- 8.6 < > = values in this interval not displayed. Recent Labs 05/05/19 0430 GLU 116* No results for input(s): TROPONIN, BNP in the last 72 hours. Imaging: CT Abdomen and Pelvis w contrast: ABDOMEN Liver and Biliary: Liver appears unremarkable. Gallbladder appears to be contracted. Pancreas, Spleen and Adrenals: Mild splenomegaly. The pancreas, and adrenal glands appear unremarkable. Kidneys: Interval removal of the previously noted percutaneous drainage catheter in the lower pole the left kidney. Heterogeneous round density in the lower pole of the kidney measuring approximately 5 cm x 5.3 cm, previously 6 cm x 5 cm. Moderate stranding, and small amount of perinephric hemorrhagic material, unchanged. 1 Right kidney appears unremarkable. Impression: 1. Interval removal of the previously noted percutaneous drainage catheter in the lower pole the left kidney. Heterogeneous round density in the lower pole of the kidney measuring approximately 5 cm x 5.3 cm, previously 6 cm x 5 cm. Differential considerations include malignancy, hemorrhagic mass, and/or hematoma. 2. Abdominal and pelvic lymphadenopathy, unchanged, concerning for metastatic disease. 3. Mild splenomegaly. PROBLEM LIST Principal Problem: Kidney, perinephric abscess Active Problems: Pyelonephritis Tobacco abuse IV drug user Resolved Problems: * No resolved hospital problems. * Assessment and Plan: Sepsis secondary to Left pyelonephritis, resolved Renal abscess secondary to MRSA S/p placement of drain 04/09/19, then again 04/16/2019 due to persistent numerous renal abs cesses -Repeat CT scan 04/20/2019, improvement though appears to have an abscess not drained by ca mikel -Dr. Morataya/IR --repeat CT-guided renal abscess 04/24/19 drainage. -Body fluid cultures growing MRSA -PICC line placed 04/19/2019 -Patient will require 4 weeks of IV daptomycin, till May 10 -Patient agreeable to plan of care -Drains removed 04/30/19 -As needed Ocycodone for pain, titrating down on dosage in anticipation of discharge Will require extended hospital stay for IV abx. Hx of IV drug use - continues to spike low grade fevers 99.1F, repeat blood cultures collected 05/04/19 show no growth to date - Repeat imaging above. 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 Nair, who was kind enough to review imaging. Patient may require nephrectomy, would recommend IR drainage again if at all possible but if not nephrectomy is indication. Unfortunately does not have privileges fo r nephrectomy at [facility]. Will re-discuss with IR. Will consult Dr. Souza on Tuesday. Nicontine use Refuses nicotine patch History of methamphetamine abuse Disposition: Inpatient. Code Status: Full Code Inez Avila DO 05/06/2019 8:35 AM Bobby Marti MD - 05/05/2019 4:39 PM PSTFormatting of this note might be different from the or iginal. [facility] Service: Infectious Diseases Progress Note Hospital Day: LOS: 24 days Post-Op Day: * No surgery found * CC: Follow-up on left kidney abscess due to MRSA SUBJECTIVE/OVERNIGHT EVENTS Continues on iv antibiotic therapy. Tolerating antibiotics well. The patient has history of intravenous drug abuse, he has been diagnosed with MRSA abscess in the left kidney which has been treated so far with intravenous daptomycin and also placem ent of 2 different percutaneous drains. The patient's last percutaneous drain was removed o n April 30, 2019. The patient continues to have some pain in the left flank area. The pa tient has developed leukocytosis again and also elevated temperature last night 100.6F. Intake/Output Summary (Last 24 hours) at 05/05/2019 1639 Last data filed at 05/05/2019 0400 Gross per 24 hour Intake 1400 ml Output Net 1400 ml REVIEW OF SYSTEMS . GI: denies diarrhea. Skin: denies skin rash. Constitutional: denies fever and chills. Respi ratory: denies difficulty breathing. Other systems were negative. MEDICATIONS: Scheduled Meds: DAPTOmycin 6 mg/kg Intravenous Q24H enoxaparin 40 mg Subcutaneous Daily nicotine 1 patch Transdermal Daily sodium chloride 0.9% injection 20 mL Intracatheter 2 times per day Continuous Infusions: PRN Meds:.acetaminophen, ibuprofen, LORazepam, ondansetron, oxyCODONE, polyethylene glycol, Potassium replacement - NON ICU AND Potassium AND potassium chloride AND potass ium chloride PHYSICAL EXAM Vital Signs: BP 150/80 | Pulse 76 | Temp 36.7 C (98 F) (Oral) | Resp 26 | Ht 1.88 m (6' 2") | W t 94 kg (207 lb 3.7 oz) | SpO2 100% | BMI 26.61 kg/m Focused exam shows: General exam: No distress, cooperative with exam. HEENT: sclera non-icteric, no visible oral thrush Cardiovascular: regular rate and rhythm Lungs: no tachypnea, clear breath sounds. Mildly decreased at bases Abdomen: no distension, bowel sounds present Back: Left CVA tenderness. Extremities/MSK: No edema, no joint effusions Skin: No lesions, normal turgor Neurologic: Awake, cranial nerves intact. Follows commands. Venous access: PIV. LABS: All labs were reviewed. Recent Results (from the past 24 hour(s)) Basic Metabolic Panel Result Value Ref Range Na 137 135 - 145 mmol/L K 3.9 3.5 - 4.9 mmol/L Cl 102 99 - 109 mmol/L CO2 31 23 - 32 mmol/L Anion Gap 8 5 - 20 mmol/L Glucose 116 (H) 65 - 99 mg/dL BUN 10 8 - 25 mg/dL Creatinine 0.8 0.70 - 1.30 mg/dL BUN/Creatinine Ratio 13 Calcium 8.8 8.5 - 10.5 mg/dL Estimated GFR >60 >60 mL/min/1.73m2 CBC with Differential Result Value Ref Range WBC 14.37 (H) 3.80 - 11.00 K/uL RBC 4.31 4.20 - 5.70 M/uL Hemoglobin 12.1 (L) 13.2 - 17.0 g/dL Hematocrit 36.3 (L) 39.0 - 50.0 % MCV 84.2 80.0 - 100.0 fl MCH 28.0 27.0 - 34.0 pg MCHC 33.3 32.0 - 35.5 g/dL RDW-SD 41.1 37 - 53 fl Platelet Count 223 150 - 400 K/uL MPV 9.5 fl Diff Type AUTOMATED % Neutrophils 60.61 % % Lymphocytes 23.04 % Monocyte % 14.79 % Eosinophils % 0.82 % Basophils % 0.74 % Neutrophils, Absolute 8.71 (H) 1.90 - 7.40 K/uL Absolute Lymphocytes 3.31 1.00 - 3.90 K/uL Absolute Monocytes 2.13 (H) 0.00 - 0.80 K/uL Eosinophils, Absolute 0.12 0.00 - 0.50 K/uL Basophils, Absolute 0.11 (H) 0.00 - 0.10 K/uL Microbiology Results (Last 14 Days by Collected Date with Culture/Sensitivity) Procedure Component Value Units Date/Time Culture, Blood [[id number]] Collected: 05/04/19 1024 Order Status: Completed Lab Status: Preliminary result Updated: 05/05/19 1616 Specimen: Peripheral Blood Special Requests RT HAND Special Requests [place] [facility] [place] [place] [id number] RESULT NO GROWTH AT THIS TIME RESULT Testing performed at [address] [address] Comment: Testing performed at [facility], [address] [place] [address] Culture, Blood [[id number]] Collected: 05/04/19 1017 Order Status: Completed Lab Status: Preliminary result Updated: 05/05/19 1616 Specimen: Peripheral Blood Special Requests RT AC Special Requests Testing [place] [facility] [place] [place] [address] RESULT NO GROWTH AT THIS TIME RESULT Testing performed at [facility], [facility] [place] [address] Comment: Testing performed at [facility], [address] [place] [address] Culture, Wound, Smear, w/Anaerobe [[id number]] (Abnormal) (Susceptibility) Collected: 1440 Order Status: Completed Lab Status: Final result Updated: 04/28/19 1030 Gram Stain Result -- 3+ WBC'S SEEN Gram Stain Result -- 4+ GRAM POSITIVE COCCI Gram Stain Result Testing performed at [facility], [address] [place] [address] RESULT -- 4+ METHICILLIN RESISTANT S. AUREUS (MRSA) Susceptibility Staphylococcus aureus,Methicillin resistant (MRSA) (1) Antibiotic Interpretation Microscan Method Status Clindamycin Sensitive SUSCEPTIBLE PATRICK Final Erythromycin Resistant RESISTANT PATRICK Final Gentamicin Sensitive SUSCEPTIBLE PATRICK Final Levofloxacin Resistant RESISTANT PATRICK Final Moxifloxacin Intermediate INTERMEDIATE PATRICK Final Oxacillin Resistant RESISTANT PATRICK Final Tetracycline Sensitive SUSCEPTIBLE PATRICK Final Trimethoprim + Sulfamethoxazole Sensitive SUSCEPTIBLE PATRICK Final Vancomycin Sensitive SUSCEPTIBLE PATRICK Final Testing performed at [facility], [address] [place] [address] Culture, Body Fluid Sterile [[id number]] Collected: 04/24/19 1436 Order Status: Canceled Lab Status: No result Specimen: Body Fluid from Abscess Microbiology Results (72 hrs) Procedure Component Value Units Date/Time Culture, Blood [[id number]] Collected: 05/04/19 1024 Order Status: Completed Lab Status: Preliminary result Updated: 05/05/19 1616 Specimen: Peripheral Blood Special Requests RT HAND Special Requests Testing performed at [facility] [place] [address] RESULT NO GROWTH AT THIS TIME RESULT Testing performed at [address] [address] Comment: Testing performed at [facility], [address] [place] [address] Culture, Blood [[id number]] Collected: 05/04/19 1017 Order Status: Completed Lab Status: Preliminary result Updated: 05/05/19 161 Specimen: Peripheral Blood Special Requests RT AC Special Requests Testing performed at [facility];[address] [place] [address] RESULT NO GROWTH AT THIS TIME RESULT Testing performed at [facility], [address] [place] [address] Comment: Testing performed at [facility], [address] [place] [address] IMAGING: Images of CT abdomen and pelvis reviewed. My interpretation: Left renal abscess ASSESSMENT & PLAN The patient is a 34 y.o.-year-old male with the following problems: Active Hospital Problems Diagnosis Date Noted IV drug user 04/24/2019 Kidney, perinephric abscess 04/11/2019 Pyelonephritis 04/11/2019 Tobacco abuse 04/11/2019 Resolved Hospital Problems No resolved problems to display. 1. Left renal abscess secondary to MRSA 2. Chronic hepatitis C 3. Persistent leukocytosis 4. Persistent fevers 5. Intravenous drug user Patient has had difficult to control renal abscess with multiple percutaneous drains placed first on April 12, then April 16 and again on April 24, 2019. The patient was unable to achieve therapeutic vancomycin levels despite every 8 hour dosing . The patient has developed again leukocytosis and fever. He will have a repeat CT of the kidney to assess for persistent abscess. If there is persi stent abscess, I recommend urology consult for potential nephrectomy given the refractory na ture of his infection. He will remain on daptomycin 6 mg/kg IV daily. Discussed with attending provider: Inez Avila DO Discussed with business case analyst regarding discharge planning. Bobby Albert MD, MPH Infectious Diseases 05/05/19 pencerInez DO - 05/05/2019 8:04 AM PSTFormatting of this note might be different from the or iginal. [facility] Service: Hospitalist Progress Note Hospital Day: LOS: 24 days [facility] Briefly, Mr. Conrad is a 34-year-old male history of hepatitis C, IV methamphetamine drug ab use, admitted on 04/11/2019 with left flank pain. CT scan showed 6.3 cm renal abscesses. Int erventional radiology was consulted and patient underwent CT-guided drainage. Cultures grew MRSA, started on daptomycin. Repeat CT scan showed continued fluid, required repeat CT-guid ed drainage and drain placement, left perinephritic tube drained approximately 30 mL's serou s fluid. Repeat a CT scan done on showing inadequate drainage some parts of abscess, r epeat CT-guided drainage completed. After extended antibiotic treatment course drains were r emoved 04/30/19 by IR. PICC line placed, remains on IV daptomycin. Due to patient's prior history of IV methamphet amine drug abuse, patient needs to be monitored in a controlled environment, he has been agr eeable. Will remain inpatient until completion of antibiotics. SUBJECTIVE Continues to have low grade fevers 100.3F, 100.6F, blood cultures drawn yesterday. UDS posi tive for THC. Discussed case with ID. Continue daptomycin. Patient appears comfortable. Encouarged ambulation around the halls as patient has not had any significant exercise for week. Good oral intake. Denies chills, n/v, diarrhea. No shortn ess of breath, cough, or chest pain. Scheduled Medications DAPTOmycin 6 mg/kg Intravenous Q24H enoxaparin 40 mg Subcutaneous Daily nicotine 1 patch Transdermal Daily sodium chloride 0.9% injection 20 mL Intracatheter 2 times per day PRN Medications acetaminophen, ibuprofen, LORazepam, ondansetron, oxyCODONE, polyethylene glycol, Potassium replacement - NON ICU AND Potassium AND potassium chloride AND potassium chlori de OBJECTIVE Vital Signs: BP 132/70 | Pulse 88 | Temp 36.9 C (98.4 F) (Axillary) | Resp 22 | Ht 1.88 m (6' 2" ) | Wt 94 kg (207 lb 3.7 oz) | SpO2 96% | BMI 26.61 kg/m Patient Vitals for the past 24 hrs: BP Temp Temp src Pulse Resp SpO2 05/05/19 0743 132/70 36.9 C (98.4 F) Axillary 88 22 96 % 05/05/19 0348 139/78 37.9 C (100.3 F) Oral 93 22 96 % 05/04/19 2328 138/77 36.8 C (98.3 F) Oral 102 24 98 % 05/04/19 2019 148/72 (!) 38.1 C (100.6 F) Oral 95 24 97 % 05/04/19 1616 142/69 37.9 C (100.2 F) Oral 94 24 98 % 05/04/19 1132 140/76 (!) 38 C (100.4 F) Oral 89 22 97 % 14:LAST:1 91.5 kg (04/12/19 0428) Last: 94 kg (05/02/19 0356) Difference: 2.5kg Weight change: Intake/Output Summary (Last 24 hours) at 05/05/2019 0804 Last data filed at 05/05/2019 0400 Gross per 24 hour Intake 2901 ml Output Net 2901 ml Body mass index is 26.61 kg/m. Physical Exam Constitutional: He is oriented to person, place, and time. He appears well-developed and we ll-nourished. HENT: Head: Normocephalic and atraumatic. Eyes: Pupils are equal, round, and reactive to light. EOM are normal. Cardiovascular: Normal rate and regular rhythm. Pulmonary/Chest: Effort normal and breath sounds normal. Abdominal: Soft. Bowel sounds are normal. He exhibits no distension. Musculoskeletal: Normal range of motion. Neurological: He is alert and oriented to person, place, and time. No cranial nerve deficit . Skin: Skin is warm and dry. No erythema. Bandage over left flank c/d/i. S/P removal of drain Psychiatric: He has a normal mood and affect. Judgment normal. DATA Recent Labs 05/05/1942905/03/19444 WBC 14.37* 10.62 HGB 12.1* 12.0* HCT 36.3* 36.2* PLT 223 265 MCV 84.2 85.4 Recent Labs Lab 05/05/1942905/04/19 0628 05/03/19 1243 05/03/1944405/02/19431 NA 137 -- -- 139 -- 137 K 3.9 4.2 4.3 3.8 < > 3.4* CL 102 -- -- 105 -- 103 CO2 31 -- -- 31 -- 29 ANIONGAP 8 -- -- 7 -- 8 BUN 10 -- -- 7* -- 9 CREA 0.8 -- -- 0.7 -- 0.8 CALCIUM 8.8 -- -- 9.0 -- 8.6 < > = values in this interval not displayed. Recent Labs 05/05/1942905/03/19444 GLU 116* 90 No results for input(s): TROPONIN, BNP in the last 72 hours. No results for input(s): PROTIME, INR, PTT in the last 168 hours. No results for input(s): IRON, TIBC, PCTSAT, FERRITIN, TSH, [id number], FOLATE in the last 168 hours. No results for input(s): LACTATE, PROCALCITONI, CRP, ESR in the last 168 hours. No results for input(s): AMYLASE, LIPASE in the last 168 hours. No results for input(s): TRIG, CHOL, HDL, LDL in the last 168 hours. No results for input(s): AMMONIA in the last 168 hours. Imaging: No new imaging. PROBLEM LIST Principal Problem: Kidney, perinephric abscess Active Problems: Pyelonephritis Tobacco abuse IV drug user Resolved Problems: * No resolved hospital problems. * Assessment and Plan: Sepsis secondary to Left pyelonephritis, resolved Renal abscess secondary to MRSA S/p placement of drain 04/09/19, then again 04/16/2019 due to persistent numerous renal abs cesses -Repeat CT scan 04/20/2019, improvement though appears to have an abscess not drained by maria esther morin -Dr. Morataya/IR --repeat CT-guided renal abscess 04/24/19 drainage. -Body fluid cultures growing MRSA -PICC line placed 04/19/2019 -Patient will require 4 weeks of IV daptomycin, till May 10 -Patient agreeable to plan of care -Drains removed 04/30/19 -As needed Ocycodone for pain, titrating down on dosage in anticipation of discharge Will require extended hospital stay for IV abx. Hx of IV drug use - continues to spike low grade fevers 100.3F, 100.6F, repeat blood cultures collected 05/04 - UDS positive for THC Nicontine use Refuses nicotine patch History of methamphetamine abuse Disposition: Inpatient. Anticipated discharge May 10 if blood cultures remain negati ve. Code Status: Full Code Inez Avila DO 05/05/2019 8:04 pencerInez DO - 05/04/2019 7:59 AM PST [facility] Service: Hospitalist Progress Note Hospital Day: LOS: 23 days [facility] Briefly, Mr. Conrad is a 34-year-old male history of hepatitis C, IV methamphetamine drug ab use, admitted on 04/11/2019 with left flank pain. CT scan showed 6.3 cm renal abscesses. Int erventional radiology was consulted and patient underwent CT-guided drainage. Cultures grew MRSA, started on daptomycin. Repeat CT scan showed continued fluid, required repeat CT-guid ed drainage and drain placement, left perinephritic tube drained approximately 30 mL's serou s fluid. Repeat a CT scan done on showing inadequate drainage some parts of abscess, r epeat CT-guided drainage completed. After extended antibiotic treatment course drains were r emoved 04/30/19 by IR. PICC line placed, remains on IV daptomycin. Due to patient's prior history of IV methamphet amine drug abuse, patient needs to be monitored in a controlled environment, he has been agr eeable. Will remain inpatient until completion of antibiotics. SUBJECTIVE Spiked fever this AM to 100.4F, blood cultures drawn. UDS ordered. Discussed case with ID. Might consider removing PICC now that it is partially pulled and use peripherals only given possible use in hospital. Patient appears comfortable. Encouarged ambulation around the halls as patient has not had any significant exercise for week. Good oral intake. Denies chills, n/v, diarrhea. No shortn ess of breath, cough, or chest pain. Scheduled Medications DAPTOmycin 6 mg/kg Intravenous Q24H enoxaparin 40 mg Subcutaneous Daily nicotine 1 patch Transdermal Daily sodium chloride 0.9% injection 20 mL Intracatheter 2 times per day PRN Medications acetaminophen, ibuprofen, LORazepam, ondansetron, oxyCODONE, polyethylene glycol, Potassium replacement - NON ICU AND Potassium AND potassium chloride AND potassium chlori de OBJECTIVE Vital Signs: BP 129/72 | Pulse 88 | Temp (!) 38 C (100.4 F) (Oral) | Resp 20 | Ht 1.88 m (6' 2") | Wt 94 kg (207 lb 3.7 oz) | SpO2 98% | BMI 26.61 kg/m Patient Vitals for the past 24 hrs: BP Temp Temp src Pulse Resp SpO2 05/04/19 0804 129/72 (!) 38 C (100.4 F) Oral 88 20 98 % 05/04/19 0254 138/70 37 C (98.6 F) Oral 88 18 96 % 05/03/19 2308 127/72 36.8 C (98.3 F) Oral 89 20 100 % 05/03/19 1918 134/71 37.3 C (99.1 F) Oral 89 20 99 % 05/03/19 1526 130/58 36.3 C (97.4 F) Oral 87 20 99 % 05/03/19 1110 146/69 36.9 C (98.4 F) Oral 18 99 % 14:LAST:1 91.5 kg (04/12/19 0428) Last: 94 kg (05/02/19 035) Difference: 2.5kg Weight change: Intake/Output Summary (Last 24 hours) at 05/04/2019 1028 Last data filed at 05/04/2019 0812 Gross per 24 hour Intake 2791 ml Output Net 2791 ml Body mass index is 26.61 kg/m. Physical Exam Constitutional: He is oriented to person, place, and time. He appears well-developed and we ll-nourished. HENT: Head: Normocephalic and atraumatic. Eyes: Pupils are equal, round, and reactive to light. EOM are normal. Cardiovascular: Normal rate and regular rhythm. Pulmonary/Chest: Effort normal and breath sounds normal. Abdominal: Soft. Bowel sounds are normal. He exhibits no distension. Musculoskeletal: Normal range of motion. Neurological: He is alert and oriented to person, place, and time. No cranial nerve deficit . Skin: Skin is warm and dry. No erythema. Bandage over left flank c/d/i. S/P removal of drain Psychiatric: He has a normal mood and affect. Judgment normal. DATA Recent Labs 05/03/1944405/02/19 043 WBC 10.62 11.17* HGB 12.0* 11.4* HCT 36.2* 35.0* PLT 265 237 MCV 85.4 84.9 Recent Labs Lab 05/04/1928 05/03/19 1243 05/03/195 05/02/19 0432 05/01/19 0632 NA -- -- 139 -- 137 139 K 4.2 4.3 3.8 < > 3.4* 4.0 CL -- -- 105 -- 103 103 CO2 -- -- 31 -- 29 29 ANIONGAP -- -- 7 -- 8 11 BUN -- -- 7* -- 9 9 CREA -- -- 0.7 -- 0.8 0.8 CALCIUM -- -- 9.0 -- 8.6 9.2 < > = values in this interval not displayed. Recent Labs 05/03/1944405/02/19 0432 GLU 90 162* No results for input(s): TROPONIN, BNP in the last 72 hours. No results for input(s): PROTIME, INR, PTT in the last 168 hours. No results for input(s): IRON, TIBC, PCTSAT, FERRITIN, TSH, [id number], FOLATE in the last 168 hours. No results for input(s): LACTATE, PROCALCITONI, CRP, ESR in the last 168 hours. No results for input(s): AMYLASE, LIPASE in the last 168 hours. No results for input(s): TRIG, CHOL, HDL, LDL in the last 168 hours. No results for input(s): AMMONIA in the last 168 hours. Imaging: No new imaging. PROBLEM LIST Principal Problem: Kidney, perinephric abscess Active Problems: Pyelonephritis Tobacco abuse IV drug user Resolved Problems: * No resolved hospital problems. * Assessment and Plan: Sepsis secondary to Left pyelonephritis, resolved Renal abscess secondary to MRSA S/p placement of drain 04/09/19, then again 04/16/2019 due to persistent numerous renal abs cesses -Repeat CT scan 04/20/2019, improvement though appears to have an abscess not drained by maria esther morin -Dr. Morataya/IR --repeat CT-guided renal abscess 04/24/19 drainage. -Body fluid cultures growing MRSA -PICC line placed 04/19/2019 -Patient will require 4 weeks of IV daptomycin, till May 10 -Patient agreeable to plan of care -Drains removed 04/30/19 -As needed Ocycodone for pain, titrating down on dosage in anticipation of discharge Will require extended hospital stay for IV abx. Hx of IV drug use - spiked fever to 100.4F this AM, repeat blood cultures collected, UDS ordered Nicontine use Refuses nicotine patch History of methamphetamine abuse Disposition: Inpatient. Anticipated discharge May 10. Code Status: Full Code Inez Avila DO 05/04/2019 10:28 Inez Douglas DO - 05/03/2019 7:42 AM PST [facility] Service: Hospitalist Progress Note Hospital Day: LOS: 22 days [facility] Briefly, Mr. Conrad is a 34-year-old male history of hepatitis C, IV methamphetamine drug ab use, admitted on 04/11/2019 with left flank pain. CT scan showed 6.3 cm renal abscesses. Int erventional radiology was consulted and patient underwent CT-guided drainage. Cultures grew MRSA, started on daptomycin. Repeat CT scan showed continued fluid, required repeat CT-guid ed drainage and drain placement, left perinephritic tube drained approximately 30 mL's serou s fluid. Repeat a CT scan done on showing inadequate drainage some parts of abscess, r epeat CT-guided drainage completed. After extended antibiotic treatment course drains were r emoved 04/30/19 by IR. PICC line placed, remains on IV daptomycin. Due to patient's prior history of IV methamphet amine drug abuse, patient needs to be monitored in a controlled environment, he has been agr eeable. Will remain inpatient until completion of antibiotics. SUBJECTIVE Resting. Appears comfortable, back pain resolevd. Remains afebrile. Good oral intake. Ambul ating well in room. Remains on daptomycin. Denies fevers, chills, n/v, diarrhea. No shortnes s of breath, cough, or chest pain. Scheduled Medications DAPTOmycin 6 mg/kg Intravenous Q24H enoxaparin 40 mg Subcutaneous Daily nicotine 1 patch Transdermal Daily sodium chloride 0.9% injection 20 mL Intracatheter 2 times per day PRN Medications acetaminophen, ibuprofen, LORazepam, ondansetron, oxyCODONE, polyethylene glycol, Potassium replacement - NON ICU AND Potassium AND potassium chloride AND potassium chlori de OBJECTIVE Vital Signs: BP 130/60 | Pulse 83 | Temp 37 C (98.6 F) (Oral) | Resp 18 | Ht 1.88 m (6' 2") | W t 94 kg (207 lb 3.7 oz) | SpO2 98% | BMI 26.61 kg/m Patient Vitals for the past 24 hrs: BP Temp Temp src Pulse Resp SpO2 05/03/19 0435 130/60 37 C (98.6 F) Oral 83 18 98 % 05/02/19 2356 139/69 36.7 C (98.1 F) Oral 90 18 98 % 05/02/19 1953 142/73 36.9 C (98.4 F) Oral 78 18 96 % 05/02/19 1638 141/77 37.1 C (98.7 F) Axillary 91 20 99 % 05/02/19 1206 149/70 36.8 C (98.2 F) Oral 87 16 99 % 05/02/19 0805 137/67 36.7 C (98.1 F) Oral 92 18 98 % 14:LAST:1 91.5 kg (04/12/19 0428) Last: 94 kg (05/02/19 035) Difference: 2.5kg Weight change: Intake/Output Summary (Last 24 hours) at 05/03/2019741 Last data filed at 05/03/2019 043 Gross per 24 hour Intake 1600 ml Output Net 1600 ml Body mass index is 26.61 kg/m. Physical Exam Constitutional: He is oriented to person, place, and time. He appears well-developed and we ll-nourished. HENT: Head: Normocephalic and atraumatic. Eyes: Pupils are equal, round, and reactive to light. EOM are normal. Cardiovascular: Normal rate and regular rhythm. Pulmonary/Chest: Effort normal and breath sounds normal. Abdominal: Soft. Bowel sounds are normal. He exhibits no distension. Musculoskeletal: Normal range of motion. Neurological: He is alert and oriented to person, place, and time. No cranial nerve deficit . Skin: Skin is warm and dry. No erythema. Bandage over left flank c/d/i. S/P removal of drain Psychiatric: He has a normal mood and affect. Judgment normal. DATA Recent Labs 05/03/1944405/02/19431 WBC 10.62 11.17* HGB 12.0* 11.4* HCT 36.2* 35.0* PLT 265 237 MCV 85.4 84.9 Recent Labs Lab 05/03/1944405/02/19 1558 05/02/192 05/01/19 0632 NA 139 -- 137 139 K 3.8 4.0 3.4* 4.0 CL 105 -- 103 103 CO2 31 -- 29 29 ANIONGAP 7 -- 8 11 BUN 7* -- 9 9 CREA 0.7 -- 0.8 0.8 CALCIUM 9.0 -- 8.6 9.2 Recent Labs 05/03/1944405/02/19 0432 05/01/19 0632 GLU 90 162* 92 No results for input(s): TROPONIN, BNP in the last 72 hours. No results for input(s): PROTIME, INR, PTT in the last 168 hours. No results for input(s): IRON, TIBC, PCTSAT, FERRITIN, TSH, [id number], FOLATE in the last 168 hours. No results for input(s): LACTATE, PROCALCITONI, CRP, ESR in the last 168 hours. No results for input(s): AMYLASE, LIPASE in the last 168 hours. No results for input(s): TRIG, CHOL, HDL, LDL in the last 168 hours. No results for input(s): AMMONIA in the last 168 hours. Imaging: No new imaging. PROBLEM LIST Principal Problem: Kidney, perinephric abscess Active Problems: Pyelonephritis Tobacco abuse IV drug user Resolved Problems: * No resolved hospital problems. * Assessment and Plan: Sepsis secondary to Left pyelonephritis, resolved Renal abscess secondary to MRSA S/p placement of drain 04/09/19, then again 04/16/2019 due to persistent numerous renal abs cesses -Repeat CT scan 04/20/2019, improvement though appears to have an abscess not drained by maria esther morin -Dr. Morataya/IR --repeat CT-guided renal abscess 04/24/19 drainage. -Body fluid cultures growing MRSA -PICC line placed 04/19/2019 -Patient will require 4 weeks of IV daptomycin, till May 10 -Patient agreeable to plan of care -Stable -Drains removed 04/30/19 -As needed Ocycodone for pain Will require extended hospital stay for IV abx. Hx of IV drug Nicontine use Refuses nicotine patch History of methamphetamine abuse Disposition: Inpatient. Anticipated discharge May 10. Code Status: Full Code Inez Avila DO 05/03/2019 7:42 Emma Philip, [place] - 05/02/2019 4:53 PM PST NUTRITION NOTE Summary Pt continues requiring IV abx of an expensive type - unlikely to be placed in SNF or [facility], a nd cannot d/c with PICC d/t hx IVDU. Fluid/Beverage Intake Oral Fluids Amount: ad vale Food Intake Amount of Food: 100% meals TID Type of Food/Meals: Active Orders Diet Diet general; Effective Now Nourishments: not currently indicated - good oral intake Nutrition-Focused Physical Findings Overall Appearance: well nourished Extremities, Muscles and Bones: no edema documented Digestive System (Mouth to Rectum): no chew/swallow problems; +BM today Nerves and Cognition: A&Ox4, hx verbally abusive to staff Skin: intact except for perc drains Anthropometrics stable Current Weight: 94 kg (207 lb 3.7 oz) Admit Weight: 91.5 kg (201 lb 11.5 oz) Biochemical Data, Medical Test, and Procedures Recent Labs 05/02/19 1558 05/02/19 0432 NA -- 137 K 4.0 3.4* GLU -- 162* BUN -- 9 CREA -- 0.8 Nutrition Diagnosis No nutrition dx at this time. Recommendations Nutrition Prescription Ordered Nutrition Order Comments: Continue general diet. Encourage po intake. Monitor and follow as indicated. Nutritional Risk Required Follow Up: 7 days(L 05/09/19) Emma Cho RD 05/02/2019 16:53 lly Leon R N - 05/02/2019 4:15 PM PSTPt vitals stable. PICC dressing changed and reinforced. PRN pain and anxiety medications given throughout shift. Needs and concerns addressed with pt. End of shift audit complete. Ally Leon RN Electronically signed by Ally Leon RN at 2018 4:16 PM PSTInez Avila DO - 05/02/2019 7:56 AM PST [facility] Service: Hospitalist Progress Note Hospital Day: LOS: 21 days [facility] Mr. Conrad is a 34-year-old male history of hepatitis C, IV methamphetamine drug abuse, admi tted on 04/11/2019 with left flank pain, CT scan showed 6.3 cm renal abscesses, intervention al radiology consulted, CT-guided drainage completed, cultures growing MRSA, repeat CT scan, required repeat CT-guided drainage, left perinephritic tube drained approximately 30 mL's s erous fluid. Repeat a CT scan done on showing inadequate drainage some parts of abscess, repeat CT- guided drainage completed. Drains removed 04/30/19 by IR. 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 Will likely remain inpatient until completion of antibiotics. SUBJECTIVE Resting. Appears comfortable, back pain resolevd. Remains afebrile but is somewhat sweaty a t times. Adequate PO intake. Ambulating well in room. Remains on daptomycin. Denies fevers, chills, n/v, diarrhea. No shortness of breath, cough, or chest pain. Scheduled Medications DAPTOmycin 6 mg/kg Intravenous Q24H enoxaparin 40 mg Subcutaneous Daily nicotine 1 patch Transdermal Daily sodium chloride 0.9% injection 20 mL Intracatheter 2 times per day PRN Medications acetaminophen, ibuprofen, LORazepam, ondansetron, oxyCODONE, polyethylene glycol, Potassium replacement - NON ICU AND Potassium AND potassium chloride AND potassium chlori de OBJECTIVE Vital Signs: BP 150/68 | Pulse 91 | Temp 37.3 C (99.2 F) (Oral) | Resp 20 | Ht 1.88 m (6' 2") | Wt 94 kg (207 lb 3.7 oz) | SpO2 98% | BMI 26.61 kg/m Patient Vitals for the past 24 hrs: BP Temp Temp src Pulse Resp SpO2 Weight 05/02/19 035 150/68 37.3 C (99.2 F) Oral 91 20 98 % 94 kg (207 lb 3.7 oz) 05/01/19 2341 143/71 37.2 C (98.9 F) Axillary 94 20 100 % 05/01/19 1907 133/60 36.8 C (98.3 F) Axillary 92 20 98 % 05/01/19 1532 136/78 36.6 C (97.8 F) Oral 91 18 100 % 05/01/19 1200 134/70 36.6 C (97.9 F) Oral 83 18 98 % 14:LAST:1 91.5 kg (04/12/19427) Last: 94 kg (05/02/19355) Difference: 2.5kg Weight change: Intake/Output Summary (Last 24 hours) at 05/02/2019 0756 Last data filed at 05/02/2019 0359 Gross per 24 hour Intake 2006 ml Output Net 2006 ml Body mass index is 26.61 kg/m. Physical Exam Constitutional: He is oriented to person, place, and time. He appears well-developed and we ll-nourished. HENT: Head: Normocephalic and atraumatic. Eyes: Pupils are equal, round, and reactive to light. EOM are normal. Cardiovascular: Normal rate and regular rhythm. Pulmonary/Chest: Effort normal and breath sounds normal. Abdominal: Soft. Bowel sounds are normal. He exhibits no distension. Musculoskeletal: Normal range of motion. Neurological: He is alert and oriented to person, place, and time. No cranial nerve deficit . Skin: Skin is warm and dry. No erythema. Bandage over left flank c/d/i. S/P removal of drain Psychiatric: He has a normal mood and affect. Judgment normal. DATA Recent Labs 05/02/192 05/01/19 0632 WBC 11.17* 11.93* HGB 11.4* 12.2* HCT 35.0* 36.8* PLT 237 277 MCV 84.9 84.3 Recent Labs Lab 05/02/1943105/01/19 0632 04/30/19 0634 NA 137 139 138 K 3.4* 4.0 3.8 CL 103 103 102 CO2 29 29 29 ANIONGAP 8 11 11 BUN 9 9 13 CREA 0.8 0.8 0.74 CALCIUM 8.6 9.2 8.9 Recent Labs 05/02/1943105/01/19 0632 04/30/19 0634 GLU 162* 92 92 No results for input(s): TROPONIN, BNP in the last 72 hours. No results for input(s): PROTIME, INR, PTT in the last 168 hours. No results for input(s): IRON, TIBC, PCTSAT, FERRITIN, TSH, [id number], FOLATE in the last 168 hours. No results for input(s): LACTATE, PROCALCITONI, CRP, ESR in the last 168 hours. No results for input(s): AMYLASE, LIPASE in the last 168 hours. No results for input(s): TRIG, CHOL, HDL, LDL in the last 168 hours. No results for input(s): AMMONIA in the last 168 hours. Imaging: Imaging Reviewed. PROBLEM LIST Principal Problem: Kidney, perinephric abscess Active Problems: Pyelonephritis Tobacco abuse IV drug user Resolved Problems: * No resolved hospital problems. * ASSESSMENT & PLAN Sepsis secondary to Left pyelonephritis, resolved Renal abscess secondary to MRSA S/p placement of drain 04/09/19, then again 04/16/2019 due to persistent numerous renal abs cesses -Repeat CT scan 04/20/2019, improvement though appears to have an abscess not drained by maria esther morin -Dr. Morataya/IR --repeat CT-guided renal abscess 04/24/19 drainage. -Body fluid cultures growing MRSA -PICC line placed 04/19/2019 -Patient will require 4 weeks of IV daptomycin, till May 10 -Patient agreeable to plan of care -Stable -Drains removed 04/30/19 -As needed Ocycodone for pain Will require extended hospital stay for IV abx. Hx of IV drug use Nicontine use Refuses nicotine patch History of methamphetamine abuse Disposition: Inpatient. Anticipated discharge May 10. Code Status: Full Code Inez Avila DO 05/02/2019 7:56 Ally Chamberlain RN - 05/01/2019 6:03 PM PSTPt vitals stable. PRN pain and anxiety medications given. PICC dressing changed-PICC line noted to be coiled. Notified PICC RN. Needs and concerns addressed with pt. End of shift audit complete. Ally Leon RN Electr onically signed by Ally Leon RN at 05/01/2019 6:05 PM Inez Douglas DO - 019 7:14 AM PST [facility] Service: Hospitalist Progress Note Hospital Day: LOS: 20 days [facility] Mr. Conrad is a 34-year-old male history of hepatitis C, IV methamphetamine drug abuse, admi tted on 04/11/2019 with left flank pain, CT scan showed 6.3 cm renal abscesses, intervention al radiology consulted, CT-guided drainage completed, cultures growing MRSA, repeat CT scan, required repeat CT-guided drainage, left perinephritic tube drained approximately 30 mL's s erous fluid. Repeat a CT scan done on showing inadequate drainage some parts of abscess, Dr. Morataya notified, patient will be placed n.p.o. after midnight, repeat CT-guided drainage completed . Drains removed 04/30/19 by IR. 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 Will likely remain inpatient until completion of antibiotics. SUBJECTIVE Resting. Appears comfortable, back pain continues to improve. Remains afebrile. Adequate PO intake. Ambulating well in room. Remains on daptomycin. Denies fevers, chills, n/v, diarrhe a. No shortness of breath, cough, or chest pain. Scheduled Medications DAPTOmycin 6 mg/kg Intravenous Q24H enoxaparin 40 mg Subcutaneous Daily nicotine 1 patch Transdermal Daily sodium chloride 0.9% injection 20 mL Intracatheter 2 times per day PRN Medications acetaminophen, ibuprofen, LORazepam, ondansetron, oxyCODONE, polyethylene glycol, Potassium replacement - NON ICU AND Potassium AND potassium chloride AND potassium chlori de OBJECTIVE Vital Signs: BP 145/87 | Pulse 94 | Temp 37.1 C (98.7 F) (Oral) | Resp 18 | Ht 1.88 m (6' 2") | Wt 93 kg (205 lb 0.4 oz) | SpO2 99% | BMI 26.32 kg/m Patient Vitals for the past 24 hrs: BP Temp Temp src Pulse Resp SpO2 05/01/19 0709 145/87 37.1 C (98.7 F) Oral 94 18 99 % 05/01/19 0408 136/72 37.2 C (98.9 F) Oral 88 20 (!) 9 % 04/30/19 2040 145/78 37.3 C (99.2 F) Oral 86 20 98 % 04/30/19 1524 149/82 36.8 C (98.3 F) Oral 88 19 99 % 04/30/19 0722 150/73 36.9 C (98.5 F) Oral 88 19 98 % 14:LAST:.5 kg (04/12/19 0428) Last: 93 kg (04/30/19 0320) Difference: 1.5kg Weight change: Intake/Output Summary (Last 24 hours) at 05/01/2019713 Last data filed at 05/01/2019 0409 Gross per 24 hour Intake 2494 ml Output Net 2494 ml Body mass index is 26.32 kg/m. Physical Exam Constitutional: He is oriented to person, place, and time. He appears well-developed and we ll-nourished. HENT: Head: Normocephalic and atraumatic. Eyes: Pupils are equal, round, and reactive to light. EOM are normal. Cardiovascular: Normal rate and regular rhythm. Pulmonary/Chest: Effort normal and breath sounds normal. Abdominal: Soft. Bowel sounds are normal. He exhibits no distension. Musculoskeletal: Normal range of motion. Neurological: He is alert and oriented to person, place, and time. No cranial nerve deficit . Skin: Skin is warm and dry. No erythema. Bandage over left flank c/d/i. S/P removal of drain Psychiatric: He has a normal mood and affect. Judgment normal. DATA Recent Labs 05/01/19 0632 04/30/19 0634 WBC 11.93* 11.56* HGB 12.2* 11.4* HCT 36.8* 35.0* PLT 277 250 MCV 84.3 84.2 Recent Labs Lab 04/30/19 0634 04/29/19 0447 04/28/19 0627 NA 138 136 139 K 3.8 4.1 4.2 CL 102 101 101 CO2 29 27 27 ANIONGAP 11 12 15 BUN 13 12 10 CREA 0.74 0.8 0.88 CALCIUM 8.9 10.1 9.5 Recent Labs 04/30/19 0634 04/29/19 0447 GLU 92 115* No results for input(s): TROPONIN, BNP in the last 72 hours. No results for input(s): PROTIME, INR, PTT in the last 168 hours. No results for input(s): IRON, TIBC, PCTSAT, FERRITIN, TSH, [id number], FOLATE in the last 168 hours. No results for input(s): LACTATE, PROCALCITONI, CRP, ESR in the last 168 hours. No results for input(s): AMYLASE, LIPASE in the last 168 hours. No results for input(s): TRIG, CHOL, HDL, LDL in the last 168 hours. No results for input(s): AMMONIA in the last 168 hours. Imaging: Imaging Reviewed. PROBLEM LIST Principal Problem: Kidney, perinephric abscess Active Problems: Pyelonephritis Tobacco abuse IV drug user Resolved Problems: * No resolved hospital problems. * ASSESSMENT & PLAN Continue concurrent treatment Sepsis secondary to Left pyelonephritis, renal abscess (MRSA) S/p placement of drain 04/09/19, then again 04/16/2019 due to persistent numerous renal abs cesses -Repeat CT scan 04/20/2019, improvement though appears to have an abscess not drained by maria esther morin -Dr. Morataya/IR --repeat CT-guided renal abscess 04/24/19. -Body fluid cultures growing MRSA -PICC line placed 04/19/2019 -Patient will require 4 weeks of IV daptomycin, till May 10 -Patient agreeable to plan of care -Stable -Drains removed 04/30/19 -As needed Ocycodone for pain Will require extended hospital stay for IV abx. Hx of IV drug use Nicontine use Refuses nicotine patch History of methamphetamine abuse Disposition: Inpatient. Anticipated discharge May 10. Code Status: Full Code Inez Avila DO 05/01/2019 7:14 Cyndee Martínez PA - 04/30/2019 11:53 AM PST Interventional Radiology Progress Note Patient Name: Timothy Conrad Date of : 1985 Consulting Provider: Cyndee Jolley PA-C Interval History/Subjective: Timothy Conrad is a 34 y.o. male with perinephric abscess s/p CT guided PAD and catheter place ment x 3, currently with two catheters in place. Patient has continued to have leukocytosis, but has remained afebrile. On IV Daptomycin. Minimal output from both drains, despite flush ing and drain repositioning. Patient reports discomfort around drains. Labs: 3 Day Labs: Recent Labs Lab 04/30/19 0634 04/29/19 0447 04/28/19 0736 04/28/19 0627 04/24/19 0355 WBC 11.56* 12.54* 14.96* -- < > -- HGB 11.4* 12.4* 12.6* -- < > -- HCT 35.0* 38.1* 37.5* -- < > -- PLT 250 271 287 -- < > -- NA 138 136 -- 139 < > -- K 3.8 4.1 -- 4.2 < > -- CL 102 101 -- 101 < > -- CO2 29 27 -- 27 < > -- BUN 13 12 -- 10 < > -- CALCIUM 8.9 10.1 -- 9.5 < > -- PTT -- -- -- -- -- 33* INR -- -- -- -- -- 1.0 < > = values in this interval not displayed. Pertinent Imaging/Procedures: Ct Abdomen W Contrast Result Date: 04/15/2019 CT ABDOMEN WITH CONTRAST CLINICAL INFORMATION: Follow-up renal abscess drainage. COMPARISON : CT GUIDED DRAIN ABSCESS (04/12/2019); PROCEDURE: Axial images through the abdomen after th e administration of 100 mL Omnipaque 350 intravenous contrast. Multiplanar reconstructions. At least one of the following CT dose optimization techniques were used: Automated exposure control; Adjustment of mA and/or kV according to patient size; Use of iterative reconstruct ion technique. FINDINGS: LUNG BASES: No significant pulmonary abnormality. No pleural effusi on or pneumothorax. ABDOMEN Liver and Biliary: Increased craniocaudal length of liver measur ing 24.2 cm. Mild periportal edema. The gallbladder is partially distended. No biliary di lation. Pancreas, Spleen and Adrenals: Enlarged spleen measuring approximately 16.5 cm in cr aniocaudal length. Normal pancreas and both adrenals. Kidneys: The right kidney is normal i n size and enhancement pattern. Enlarged edematous left kidney with pararenal edema. There is decreased enhancement in lower pole of the left kidney with a heterogeneous attenuation a germain measuring 6.3 x 4.7 x 4.8 cm, image 88/series 3, image 49/series 6. Additional smaller intrarenal area of heterogeneous attenuation in interpolar left kidney measuring 3.2 x 3.1 x 2.9 cm. There is marked infiltration of pararenal fat with thickening of anterior and post erior pararenal fascia. Percutaneous pigtail catheter in-situ in left posterior pararenal s pace. Bowel: No small bowel or colonic dilation or adjacent inflammation. Vessels: No signif icant abnormality in the aorta or its proximal branches. No significant abnormality in the p ortal veins, mesenteric veins or systemic veins. Lymph Nodes: Multiple enlarged retroperiton eal lymph nodes. The index left para-aortic lymph node measuring 1.4 cm, image 84/series 3, nonspecific, probably reactive. The index inter aortocaval lymph node measuring 1.6 cm, im age 95/series 3. Peritoneum and Retroperitoneum: Small amount of fluid in left paracolic gut ter. Retroperitoneal left pararenal fat infiltration with thickening of anterior and early childhood education coordinator ior pararenal fascia. No pneumoperitoneum. BODY WALL Soft Tissues: No bowel or inflamed fat containing hernia, mass or hemorrhage. Mildly elevated right dome of the diaphragm. Mild subcutaneous edema of the body wall. Small fat containing paraumbilical hernia. Bones: No a cute fracture or vertebral end plate destruction. No lytic or blastic lesion. Moderate dege nerative disc disease at L4-L5 and L5-S1. Multiple Schmorl nodes at L4-L5. *Complicated acute left pyelonephritis with intrarenal abscess/phlegmon in lower pole of th e left kidney measuring 6.3 x 4.7 x 4.8 cm, causing renal capsular bulge. *Additional area o f focal pyelonephritis/small organized abscess or phlegmon in interpolar left kidney measuri ng 3.2 x 3.1 x 2.9 cm. Adjacent pigtail catheter in-situ in left posterior pararenal space. Interval decrease in size of the left pararenal abscess, status post percutaneous drainage. *Small amount of free fluid in left paracolic gutter. *Multiple enlarged retroperitoneal lym ph nodes, nonspecific, probably reactive. *Hepatosplenomegaly. *Additional findings as detai led above. Signed by: Liza Zeng, Arnold Sign Date/Time: 04/15/2019 12:[address] Abdomen Pelvis W Contrast Result Date: 04/20/2019 CT ABDOMEN AND PELVIS WITH CONTRAST CLINICAL INFORMATION: Abdominal infection suspected. fo llow-up renal and perirenal abscesses, r/o abdominal abscess. COMPARISON: CT GUIDED DRAIN AB SCESS (04/16/2019); CT ABDOMEN W CONTRAST (04/15/2019); CT GUIDED DRAIN ABSCESS (04/12/2019) ; PROCEDURE: Axial images through the abdomen and pelvis after the administration of 100 ml Omnipaque 350 intravenous contrast. Multiplanar reconstructions. At least one of the followi ng CT dose optimization techniques were used: Automated exposure control; Adjustment of mA a nd/or kV according to patient size; Use of iterative reconstruction technique. FINDINGS: RAS G BASES: No significant pulmonary abnormality. No pleural effusion or pneumothorax. Some as ymmetric scarring in the right lung base. Stable. ABDOMEN Liver and Biliary: No solid hepati c lesion, but there is diffuse periportal edema. No cirrhosis. Vascular enhancement. [place] ures 24 cm in the superior inferior dimension at the level of the midclavicular line. Gallbl adder not distended, no gallstones or pericholecystic fluid. Pancreas: Normal to technique w ithout peripancreatic fluid collection or intrinsic lesion Spleen: Marked splenomegaly but w ithout nearby fluid or adjacent lesion. Measures about 15 x 8 x 16 cm. Normal adrenals Kidn eys: Structurally normal right kidney. Left kidney: Known intrasubstance parenchymal abscess in the midbody in lower pole of the left kidney, now approximated by pigtail catheter. The fluid collection immediately inferior to the left kidney measures about 3.7 by 3.7 by 1.9 cm and may not be drained by the catheter. With marked inflammatory changes in the anterior pa ra and perinephric renal spaces on the left and the pole left kidney seems edematous and sylvie ewhat enlarged-especially the lower pole. Likely postprocedural gas about the catheter ABDO MEN AND PELVIS Bowel: No small bowel or colonic dilation or adjacent inflammation. No append iceal dilation or inflammation. Vessels: No significant abnormality in the aorta or its prox imal branches. No significant abnormality in the portal veins, mesenteric veins or systemic veins. Lymph Nodes: Marked periaortic retroperitoneal lymphadenopathy and marked confluent l ymphadenopathy at the gerson hepatitis. Compared to the prior examination, these findings are preexistent, and stable to technique. No free air. No ascites. PELVIS Genitourinary: Dista l ureters and bladder appear normal. No pelvic masses. BODY WALL Soft Tissues: No bowel or inflamed fat containing hernia, mass or hemorrhage. Bones: Focal disc endplate disease at L4 -5 with osteophytosis, subchondral sclerosis and cystic changes 1. Pigtail catheter now centrally located in the central phlegmonous section of the mid lo wer pole of the left kidney Marked local inflammatory changes and edema. Preexistent and wi thin the spectrum of expected evolving findings with severe renal infection and intervention 2. Pimento like perinephric inflammatory fluid collection inferior to the lower pole of t he left kidney. An appreciable collection of stable infected fluid, not seemingly drained b y the catheter. 3. Marked but stable retroperitoneal lymphadenopathy and marked confluent l ymphadenopathy in the gerson hepatitis. 4. Periportal edema and hepatosplenomegaly Signed by : Liza Alex Timothy Sign Date/Time: 04/20/2019 1:[address] Guided Drain Abscess Result Date: 04/17/2019 CT GUIDED LEFT KIDNEY ABSCESS DRAINAGE CLINICAL INFORMATION: 34-year-old male with left luisa al abscess and perinephric abscess status post perinephric abscess drainage. Patient contin ues to have leukocytosis and intermittent fevers and drainage of the left intraparenchymal r enal abscess is requested. COMPARISON: None. PROCEDURE: The risks, benefits and alternatives were discussed with the patient; consent was obtained and placed in the patient's chart. Th e risks included but were not limited to bleeding, infection, non target organ injury. The p atient was placed in the CT scanner and imaging was obtained through the abdomen. A reprodu cible target was demonstrated. The skin overlying the site of interest was localized and mar ked. The skin was sterilely prepped and draped in the usual fashion. Local lidocaine was adm inistered in the skin and underlying tissues. A wire was passed through the existing cathet er into the perinephric abscess. This collection was in line with the intraparenchymal crow l abscess. A new catheter with metal stiffener was passed over the wire, the wire were kendell charly, and stylette introduced into the metal stiffener. The catheter was advanced as a unit into the intraparenchymal renal abscess. The inner stylet was removed, a wire was passed in to the intra parenchymal abscess, and images acquired confirming positioning. Next, the meta l stiffener was removed and the catheter advanced and formed over the wire. The position wa s confirmed with CT and the catheter was secured to the skin. The patient tolerated the pro cedure well without complication. Conscious sedation was administered. The nurse administer ed fentanyl medications during the examination and monitored blood pressure, heart rate, and pulse oximeter. Physician intraservice time of 30 minutes. At least one of the following CT dose optimization techniques were used: Automated exposure control; Adjustment of mA and/or kV according to patient size; Use of iterative reconstruction technique. FINDINGS: CT ident ified the intraparenchymal left renal abscess which was selected for drainage. Intra procedu ral imaging confirmed appropriate catheter placement. Post procedure imaging showed no evide nce for complication. Successful CT-guided left intraparenchymal renal abscess drainage. Signed by: Liza Morataya David Sign Date/Time: 04/17/2019 6:[address] Guided Drain Abscess Result Date: 04/13/2019 CT GUIDED LEFT PERINEPHRIC ABSCESS DRAINAGE CLINICAL INFORMATION: 34-year-old male with lef t perinephric abscess. COMPARISON: None. PROCEDURE: The risks, benefits and alternatives wer e discussed with the patient; consent was obtained and placed in the patient's chart. The ri sks included but were not limited to bleeding, infection, non target organ injury. The patie nt was placed in the CT scanner and imaging was obtained through the abdomen and pelvis. A reproducible target was demonstrated. The skin overlying the site of interest was localized and marked. The skin was sterilely prepped and draped in the usual fashion. Local lidocaine was administered in the skin and underlying tissues, and a tiny dermatotomy was made. Under CT guidance, a 18 gauge needle system was used to access the target. A wire was positioned t hrough the needle system into the fluid collection. Serial dilatation was performed to the a ppropriate level and a 10 Spanish multipurpose drainage catheter was placed and secured to th e skin under CT guidance. The patient tolerated the procedure well without complication. Con scious sedation was administered. The nurse administered fentanyl and Versed medications du ring the examination and monitored blood pressure, heart rate, and pulse oximeter. Physician intraservice time of 30 minutes. At least one of the following CT dose optimization techniq ues were used: Automated exposure control; Adjustment of mA and/or kV according to patient s ize; Use of iterative reconstruction technique. FINDINGS: CT identified the left perinephric abscess, which was selected for drainage. Intra procedural imaging confirmed appropriate ca theter placement. Post procedure imaging showed no evidence for complication. Successful CT-guided left perinephric abscess drainage. Signed by: Liza Morataya David Sign Date/Time: 04/13/2019 6:[address] Guided Drain Abscess Renal Result Date: 04/24/2019 CT GUIDED DRAINAGE LEFT PARARENAL ABSCESS CLINICAL INFORMATION: Residual undrained left luisa al collection PROCEDURE: Prior to the procedure, risks and benefits were explained to the pa tient and informed written and verbal consent obtained. Patient was placed on the CT gantry and initial localizing scans were performed. Using lidocaine for local anesthesia and intrav enous sedation, the region is punctured under CT guidance. Aspiration was performed yieldin g 8 mL of hemorrhagic and purulent fluid. The specimen was submitted to the laboratory for Gram stain and culture. An 0.35 guide wire is placed into the collection and the tract dilat ed up to 10 Spanish. A 10 Spanish catheter is then placed over the wire. Patient tolerated th e procedure well. No immediate complications. Conscious sedation was administered. The nurs e administered for 47 minutes, 200 mcg fentanyl and 4 mg Versed used for sedation. The keyanna ent was monitored by the nurse during the examination and monitored blood pressure, heart ra te, and pulse oximeter. Physician intraservice time of 47 minutes. Estimated Blood Loss: Les s than 10 cc's. At least one of the following CT dose optimization techniques were used: Aut omated exposure control; Adjustment of mA and/or kV according to patient size; Use of iterat jerome reconstruction technique. Uncomplicated drainage of left pararenal abscess. 8 mL of hemorrhagic and purulent fluid w as aspirated. A 10 Spanish locking pigtail catheter is placed. Signed by: Liza Zeng, Shital castellanos Sign Date/Time: 04/24/2019 2:56 PM Physical Examination: Vitals: 04/30/19 0722 BP: 150/73 Pulse: 88 Resp: 19 Temp: 36.9 C (98.5 F) Physical Exam Constitutional: He is oriented to person, place, and time. Distressed: mildly. HENT: Head: Normocephalic and atraumatic. Cardiovascular: Normal rate. Pulmonary/Chest: Effort normal. No respiratory distress. Neurological: He is alert and oriented to person, place, and time. Skin: Skin is warm. He is not diaphoretic. Small amount of pus around upper catheter, with suture no longer in place. Small amount of serosanguinous output in both accordion bags. Psychiatric: Mood and affect normal. Assessment and Plan: Perinephric abscess s/p CT guided PAD and catheter placements. Patient continues to get lit tle output through his catheters, therefore they were removed at bedside today. Case d/w Dr. Morataya, recommending medical management at this point. IR will sign off at this time, pleas e re-consult if we can be of further assistance. [facility] ilagro Zambrano MD - 04/30/2019 5:10 AM PST [facility] Service: Hospitalist Progress Note Hospital Day: LOS: 19 days SUBJECTIVE Patient Summary: From HPI Transfer note Dr. Do:" Mr. Conrad is a 34 yr old man with chronic HCV infection presented at [facility] ED for 1 week for constant LLQ pain that radiates to the back and intermittent feverrs. He had leuko cytosis. CT abdomen showed findings concerning for left pyelonephritis with developing intr arenal abscess; large loculation with perinephric inflammatory changes consistent with an ab scess. Patient was transferred here for possible IR drainage. Patient underwent IR placement of drainage on 04/12/19. 20cc of purulent drainage was obtain. Drained fluid was + MRSA. I D was on board and has been managing antibiotic. " Events Overnight: Dr. Mendoza 04/24/19 34-year-old male history of hepatitis C, IV methamphetamine drug abuse , admitted on 2018 with left flank pain, CT scan showed 6.3 cm renal abscesses, interventional radiology c onsulted, CT-guided drainage , cultures growing MRSA, repeat CT scan, required repeat CT-luis ded drainage, left perinephritic tube drained approximately 30 mL's serous fluid. 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 Morataya notified, patient will be placed n.p.o. after midnight, repeat CT-guided drainage for yuri iyer. Otherwise patient continues to do well is been calm cooperative, spends most of the day sle eping, watching TV and eating Afebrile Minimal back pain 04/30/19 Resting. Appears comfortable, back pain continues to improve. Remains afebrile. Ashwini quate PO intake. Ambulating well in room Scheduled Medications DAPTOmycin 6 mg/kg Intravenous Q24H enoxaparin 40 mg Subcutaneous Daily nicotine 1 patch Transdermal Daily sodium chloride 0.9% injection 20 mL Intracatheter 2 times per day PRN Medications acetaminophen, ibuprofen, LORazepam, ondansetron, oxyCODONE, polyethylene glycol, Potassium replacement - NON ICU AND Potassium AND potassium chloride AND potassium chlori de OBJECTIVE Vital Signs: BP 150/73 | Pulse 88 | Temp 36.9 C (98.5 F) (Oral) | Resp 19 | Ht 1.88 m (6' 2") | Wt 93 kg (205 lb 0.4 oz) | SpO2 98% | BMI 26.32 kg/m Patient Vitals for the past 24 hrs: BP Temp Temp src Pulse Resp SpO2 Weight 04/30/19 0722 150/73 36.9 C (98.5 F) Oral 88 19 98 % 04/30/19 0320 93 kg (205 lb 0.4 oz) 04/30/19 0318 131/69 36.8 C (98.2 F) Oral 86 20 96 % 04/30/19 0041 144/76 36.7 C (98.1 F) Oral 88 22 98 % 04/29/192020 (!) 142/114 36.5 C (97.7 F) Axillary 85 20 98 % 04/29/19 1525 159/79 36.6 C (97.9 F) Oral 83 18 98 % 04/29/19 1506 151/85 14:LAST:1 91.5 kg (04/12/19 0428) Last: 93 kg (04/30/19319) Difference: 1.5kg Weight change: -1.2 kg (-2 lb 10.3 oz) Intake/Output Summary (Last 24 hours) at 04/30/2019 1314 Last data filed at 04/30/2019 0600 Gross per 24 hour Intake 1199 ml Output 40 ml Net 1159 ml Body mass index is 26.32 kg/m. Physical Exam Constitutional: He is oriented to person, place, and time. He appears well-developed and we ll-nourished. HENT: Head: Normocephalic and atraumatic. Eyes: Pupils are equal, round, and reactive to light. EOM are normal. Cardiovascular: Normal rate and regular rhythm. Pulmonary/Chest: Effort normal and breath sounds normal. Abdominal: Soft. Bowel sounds are normal. He exhibits no distension. Musculoskeletal: Normal range of motion. Neurological: He is alert and oriented to person, place, and time. No cranial nerve deficit . Skin: Skin is warm and dry. No erythema. Psychiatric: He has a normal mood and affect. Judgment normal. DATA Recent Labs 04/30/1934 04/29/19446 WBC 11.56* 12.54* HGB 11.4* 12.4* HCT 35.0* 38.1* PLT 250 271 MCV 84.2 85.4 Recent Labs Lab 04/30/19 0634 04/29/197 04/28/19 0627 NA 138 136 139 K 3.8 4.1 4.2 CL 102 101 101 CO2 29 27 27 ANIONGAP 11 12 15 BUN 13 12 10 CREA 0.74 0.8 0.88 CALCIUM 8.9 10.1 9.5 Recent Labs 04/30/19 0634 04/29/197 04/28/19 0627 GLU 92 115* 161* No results for input(s): TROPONIN, BNP in the last 72 hours. Recent Labs Lab 04/24/19 0355 INR 1.0 PTT 33* No results for input(s): IRON, TIBC, PCTSAT, FERRITIN, TSH, [id number], FOLATE in the last 168 hours. No results for input(s): LACTATE, PROCALCITONI, CRP, ESR in the last 168 hours. No results for input(s): AMYLASE, LIPASE in the last 168 hours. No results for input(s): TRIG, CHOL, HDL, LDL in the last 168 hours. No results for input(s): AMMONIA in the last 168 hours. Recent Results (from the past 360 hour(s)) CT Guided Drain Abscess Narrative CT GUIDED LEFT KIDNEY ABSCESS DRAINAGE CLINICAL INFORMATION: 34-year-old male with left renal abscess and perinephric abscess status post perinephric abscess drainage. Patient continues to have leukocytosis and intermittent fevers and drainage of the left intraparenchymal renal abscess is requested. COMPARISON: None. PROCEDURE: The risks, benefits and alternatives were discussed with the patient; consent was obtained and placed in the patient's chart. The risks included but were not limited to bleeding, infection, non target organ injury. The patient was placed in the CT scanner and imaging was obtained through the abdomen. A reproducible target was demonstrated. The skin overlying the site of interest was localized and marked. The skin was sterilely prepped and draped in the usual fashion. Local lidocaine was administered in the skin and underlying tissues. A wire was passed through the existing catheter into the perinephric abscess. This collection was in line with the intraparenchymal renal abscess. A new catheter with metal stiffener was passed over the wire, the wire were removed, and stylette introduced into the metal stiffener. The catheter was advanced as a unit into the intraparenchymal renal abscess. The inner stylet was removed, a wire was passed into the intra parenchymal abscess, and images acquired confirming positioning. Next, the metal stiffener was removed and the catheter advanced and formed over the wire. The position was confirmed with CT and the catheter was secured to the skin. The patient tolerated the procedure well without complication. Conscious sedation was administered. The nurse administered fentanyl medications during the examination and monitored blood pressure, heart rate, and pulse oximeter. Physician intraservice time of 30 minutes. At least one of the following CT dose optimization techniques were used: Automated exposure control; Adjustment of mA and/or kV according to patient size; Use of iterative reconstruction technique. FINDINGS: CT identified the intraparenchymal left renal abscess which was selected for drainage. Intra procedural imaging confirmed appropriate catheter placement. Post procedure imaging showed no evidence for complication. Impression Successful CT-guided left intraparenchymal renal abscess drainage. Signed by: Liza Morataya David Sign Date/Time: 04/17/2019 6:[address] Abdomen Pelvis w Contrast Narrative CT ABDOMEN AND PELVIS WITH CONTRAST CLINICAL INFORMATION: Abdominal infection suspected. follow-up renal and perirenal abscesses, r/o abdominal abscess. COMPARISON: CT GUIDED DRAIN ABSCESS (04/16/2019); CT ABDOMEN W CONTRAST (04/15/2019); CT GUIDED DRAIN ABSCESS (04/12/2019); PROCEDURE: Axial images through the abdomen and pelvis after the administration of 100 ml Omnipaque 350 intravenous contrast. Multiplanar reconstructions. At least one of the following CT dose optimization techniques were used: Automated exposure control; Adjustment of mA and/or kV according to patient size; Use of iterative reconstruction technique. FINDINGS: LUNG BASES: No significant pulmonary abnormality. No pleural effusion or pneumothorax. Some asymmetric scarring in the right lung base. Stable. ABDOMEN Liver and Biliary: No solid hepatic lesion, but there is diffuse periportal edema. No cirrhosis. Vascular enhancement. Measures 24 cm in the superior inferior dimension at the level of the midclavicular line. Gallbladder not distended, no gallstones or pericholecystic fluid. Pancreas: Normal to technique without peripancreatic fluid collection or intrinsic lesion Spleen: Marked splenomegaly but without nearby fluid or adjacent lesion. Measures about 15 x 8 x 16 cm. Normal adrenals Kidneys: Structurally normal right kidney. Left kidney: Known intrasubstance parenchymal abscess in the midbody in lower pole of the left kidney, now approximated by pigtail catheter. The fluid collection immediately inferior to the left kidney measures about 3.7 by 3.7 by 1.9 cm and may not be drained by the catheter. With marked inflammatory changes in the anterior para and perinephric renal spaces on the left and the pole left kidney seems edematous and somewhat enlarged-especially the lower pole. Likely postprocedural gas about the catheter ABDOMEN AND PELVIS Bowel: No small bowel or colonic dilation or adjacent inflammation. No appendiceal dilation or inflammation. Vessels: No significant abnormality in the aorta or its proximal branches. No significant abnormality in the portal veins, mesenteric veins or systemic veins. Lymph Nodes: Marked periaortic retroperitoneal lymphadenopathy and marked confluent lymphadenopathy at the gerson hepatitis. Compared to the prior examination, these findings are preexistent, and stable to technique. No free air. No ascites. PELVIS Genitourinary: Distal ureters and bladder appear normal. No pelvic masses. BODY WALL Soft Tissues: No bowel or inflamed fat containing hernia, mass or hemorrhage. Bones: Focal disc endplate disease at L4-5 with osteophytosis, subchondral sclerosis and cystic changes Impression 1. Pigtail catheter now centrally located in the central phlegmonous section of the mid lower pole of the left kidney Marked local inflammatory changes and edema. Preexistent and within the spectrum of expected evolving findings with severe renal infection and intervention 2. Pimento like perinephric inflammatory fluid collection inferior to the lower pole of the left kidney. An appreciable collection of stable infected fluid, not seemingly drained by the catheter. 3. Marked but stable retroperitoneal lymphadenopathy and marked confluent lymphadenopathy in the gerson hepatitis. 4. Periportal edema and hepatosplenomegaly Signed by: Liza Alex Timothy Sign Date/Time: 04/20/2019 1:[address] Guided Drain Abscess Renal Narrative CT GUIDED DRAINAGE LEFT PARARENAL ABSCESS CLINICAL INFORMATION: Residual undrained left renal collection PROCEDURE: Prior to the procedure, risks and benefits were explained to the patient and informed written and verbal consent obtained. Patient was placed on the CT gantry and initial localizing scans were performed. Using lidocaine for local anesthesia and intravenous sedation, the region is punctured under CT guidance. Aspiration was performed yielding 8 mL of hemorrhagic and purulent fluid. The specimen was submitted to the laboratory for Gram stain and culture. An 0.35 guide wire is placed into the collection and the tract dilated up to 10 Spanish. A 10 Spanish catheter is then placed over the wire. Patient tolerated the procedure well. No immediate complications. Conscious sedation was administered. The nurse administered for 47 minutes, 200 mcg fentanyl and 4 mg Versed used for sedation. The patient was monitored by the nurse during the examination and monitored blood pressure, heart rate, and pulse oximeter. Physician intraservice time of 47 minutes. Estimated Blood Loss: Less than 10 cc's. At least one of the following CT dose optimization techniques were used: Automated exposure control; Adjustment of mA and/or kV according to patient size; Use of iterative reconstruction technique. Impression Uncomplicated drainage of left pararenal abscess. 8 mL of hemorrhagic and purulent fluid was aspirated. A 10 Spanish locking pigtail catheter is placed. Signed by: Liza Zeng Pushpender Sign Date/Time: 04/24/2019 2:56 PM Imaging: Imaging Reviewed. PROBLEM LIST Principal Problem: Kidney, perinephric abscess Active Problems: Pyelonephritis Tobacco abuse IV drug user Resolved Problems: * No resolved hospital problems. * ASSESSMENT & PLAN Continue concurrent treatment Sepsis secondary to Left pyelonephritis, renal abscess (MRSA) S/p placement of drain 04/09/19, then again 04/16/2019 due to persistent numerous renal abs cesses -Repeat CT scan 04/20/2019, improvement though appears to have an abscess not drained by ca jefferyter -Dr. Mortaaya/IR --repeat CT-guided renal abscess 04/24/19. -MRSA -PICC line placed 04/19/2019 -Patient will require 4 weeks of IV daptomycin, till May 24 -Bag Turner involved looking at tentative placement? -Patient agreeable to plan of care -Stable -Drains to be removed on Tuesday/today -prn Ocycodone for pain Will require extended hospital stay for IV abx. Hx of IV drug use Nicontine use Refuses nicotine patch History of methamphetamine abuse -Patient reports history of IV methamphetamine abuse, indicates that he last used approxima tely 1 week prior to admission, indicates he had been residing in [place] and had moved u to [place] to be with his mother, with intentions of stopping his drug. He confirms wantin g to stop and agrees to continuing hospitalization Disposition: Code Status: Full Code Milagro Zambrano MD 04/30/2019 13:14 ilagro Zambrano MD - 04/29/2019 5:38 AM PST [facility] Service: Hospitalist Progress Note Hospital Day: LOS: 18 days SUBJECTIVE Patient Summary: From HPI Transfer note Dr. Do:" Mr. Conrad is a 34 yr old man with chronic HCV infection presented at [facility] ED for 1 week for constant LLQ pain that radiates to the back and intermittent feverrs. He had leuko cytosis. CT abdomen showed findings concerning for left pyelonephritis with developing intr arenal abscess; large loculation with perinephric inflammatory changes consistent with an ab scess. Patient was transferred here for possible IR drainage. Patient underwent IR placement of drainage on 04/12/19. 20cc of purulent drainage was obtain. Drained fluid was + MRSA. I D was on board and has been managing antibiotic. " Events Overnight: Dr. Mendoza 04/24/19 34-year-old male history of hepatitis C, IV methamphetamine drug abuse , admitted on 2018 with left flank pain, CT scan showed 6.3 cm renal abscesses, interventional radiology c onsulted, CT-guided drainage , cultures growing MRSA, repeat CT scan, required repeat CT-luis ded drainage, left perinephritic tube drained approximately 30 mL's serous fluid. 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 Morataya notified, patient will be placed n.p.o. after midnight, repeat CT-guided drainage for yuri iyer. Otherwise patient continues to do well is been calm cooperative, spends most of the day sle eping, watching TV and eating Afebrile Minimal back pain 04/29/19 Resting. Appears comfortable, back pain continues to improve. Remains afebrile. Ashwini quate PO intake. Scheduled Medications DAPTOmycin 6 mg/kg Intravenous Q24H enoxaparin 40 mg Subcutaneous Daily nicotine 1 patch Transdermal Daily sodium chloride 0.9% injection 20 mL Intracatheter 2 times per day PRN Medications acetaminophen, ibuprofen, LORazepam, ondansetron, oxyCODONE, polyethylene glycol, Potassium replacement - NON ICU AND Potassium AND potassium chloride AND potassium chlori de OBJECTIVE Vital Signs: BP 146/88 | Pulse 103 | Temp 36.8 C (98.2 F) (Oral) | Resp 18 | Ht 1.88 m (6' 2") | Wt 94.2 kg (207 lb 10.8 oz) | SpO2 98% | BMI 26.66 kg/m Patient Vitals for the past 24 hrs: BP Temp Temp src Pulse Resp SpO2 Weight 04/29/19 0720 146/88 36.8 C (98.2 F) Oral 103 18 98 % 04/29/19 0303 142/80 36.8 C (98.3 F) Oral 104 18 99 % 94.2 kg (207 lb 10.8 oz) 04/28/19 2314 128/78 37 C (98.6 F) Oral 99 20 98 % 04/28/192006 149/78 36.9 C (98.4 F) Oral 102 22 100 % 04/28/19 1543 (!) 164/95 36.7 C (98 F) Oral 100 20 99 % 14:LAST:1 91.5 kg (04/12/19 0428) Last: 94.2 kg (04/29/19 030) Difference: 2.7kg Weight change: 0.2 kg (7.1 oz) Intake/Output Summary (Last 24 hours) at 04/29/2019 1205 Last data filed at 04/29/2019 0900 Gross per 24 hour Intake 1070 ml Output 40 ml Net 1030 ml Body mass index is 26.66 kg/m. Physical Exam Constitutional: He is oriented to person, place, and time. He appears well-developed and we ll-nourished. HENT: Head: Normocephalic and atraumatic. Eyes: Pupils are equal, round, and reactive to light. EOM are normal. Cardiovascular: Normal rate and regular rhythm. Pulmonary/Chest: Effort normal and breath sounds normal. No stridor. No respiratory distres s. He has no wheezes. Abdominal: Soft. Musculoskeletal: Normal range of motion. Neurological: He is alert and oriented to person, place, and time. No cranial nerve deficit . Skin: Skin is warm and dry. No erythema. Psychiatric: He has a normal mood and affect. Judgment normal. DATA Recent Labs 04/29/1944604/28/19 0736 WBC 12.54* 14.96* HGB 12.4* 12.6* HCT 38.1* 37.5* PLT 271 287 MCV 85.4 83.1 Recent Labs Lab 04/29/1944604/28/1962604/27/19 0654 NA 136 139 140 K 4.1 4.2 3.9 CL 101 101 102 CO2 27 27 30 ANIONGAP 12 15 12 BUN 12 10 10 CREA 0.8 0.88 0.70 CALCIUM 10.1 9.5 9.0 Recent Labs 04/29/1944604/28/19 0627 04/27/19 0654 GLU 115* 161* 99 No results for input(s): TROPONIN, BNP in the last 72 hours. Recent Labs Lab 04/24/19 0355 INR 1.0 PTT 33* No results for input(s): IRON, TIBC, PCTSAT, FERRITIN, TSH, [id number], FOLATE in the last 168 hours. No results for input(s): LACTATE, PROCALCITONI, CRP, ESR in the last 168 hours. No results for input(s): AMYLASE, LIPASE in the last 168 hours. No results for input(s): TRIG, CHOL, HDL, LDL in the last 168 hours. No results for input(s): AMMONIA in the last 168 hours. Recent Results (from the past 360 hour(s)) CT Abdomen w Contrast Narrative CT ABDOMEN WITH CONTRAST CLINICAL INFORMATION: Follow-up renal abscess drainage. COMPARISON: CT GUIDED DRAIN ABSCESS (04/12/2019); PROCEDURE: Axial images through the abdomen after the administration of 100 mL Omnipaque 350 intravenous contrast. Multiplanar reconstructions. At least one of the following CT dose optimization techniques were used: Automated exposure control; Adjustment of mA and/or kV according to patient size; Use of iterative reconstruction technique. FINDINGS: LUNG BASES: No significant pulmonary abnormality. No pleural effusion or pneumothorax. ABDOMEN Liver and Biliary: Increased craniocaudal length of liver measuring 24.2 cm. Mild periportal edema. The gallbladder is partially distended. No biliary dilation. Pancreas, Spleen and Adrenals: Enlarged spleen measuring approximately 16.5 cm in craniocaudal length. Normal pancreas and both adrenals. Kidneys: The right kidney is normal in size and enhancement pattern. Enlarged edematous left kidney with pararenal edema. There is decreased enhancement in lower pole of the left kidney with a heterogeneous attenuation area measuring 6.3 x 4.7 x 4.8 cm, image 88/series 3, image 49/series 6. Additional smaller intrarenal area of heterogeneous attenuation in interpolar left kidney measuring 3.2 x 3.1 x 2.9 cm. There is marked infiltration of pararenal fat with thickening of anterior and posterior pararenal fascia. Percutaneous pigtail catheter in-situ in left posterior pararenal space. Bowel: No small bowel or colonic dilation or adjacent inflammation. Vessels: No significant abnormality in the aorta or its proximal branches. No significant abnormality in the portal veins, mesenteric veins or systemic veins. Lymph Nodes: Multiple enlarged retroperitoneal lymph nodes. The index left para-aortic lymph node measuring 1.4 cm, image 84/series 3, nonspecific, probably reactive. The index inter aortocaval lymph node measuring 1.6 cm, image 95/series 3. Peritoneum and Retroperitoneum: Small amount of fluid in left paracolic gutter. Retroperitoneal left pararenal fat infiltration with thickening of anterior and posterior pararenal fascia. No pneumoperitoneum. BODY WALL Soft Tissues: No bowel or inflamed fat containing hernia, mass or hemorrhage. Mildly elevated right dome of the diaphragm. Mild subcutaneous edema of the body wall. Small fat containing paraumbilical hernia. Bones: No acute fracture or vertebral end plate destruction. No lytic or blastic lesion. Moderate degenerative disc disease at L4-L5 and L5-S1. Multiple Schmorl nodes at L4-L5. Impression *Complicated acute left pyelonephritis with intrarenal abscess/phlegmon in lower pole of the left kidney measuring 6.3 x 4.7 x 4.8 cm, causing renal capsular bulge. *Additional area of focal pyelonephritis/small organized abscess or phlegmon in interpolar left kidney measuring 3.2 x 3.1 x 2.9 cm. Adjacent pigtail catheter in-situ in left posterior pararenal space. Interval decrease in size of the left pararenal abscess, status post percutaneous drainage. *Small amount of free fluid in left paracolic gutter. *Multiple enlarged retroperitoneal lymph nodes, nonspecific, probably reactive. *Hepatosplenomegaly. *Additional findings as detailed above. Signed by: Liza Zeng, Pushpender Sign Date/Time: 04/15/2019 12:[address] Guided Drain Abscess Narrative CT GUIDED LEFT KIDNEY ABSCESS DRAINAGE CLINICAL INFORMATION: 34-year-old male with left renal abscess and perinephric abscess status post perinephric abscess drainage. Patient continues to have leukocytosis and intermittent fevers and drainage of the left intraparenchymal renal abscess is requested. COMPARISON: None. PROCEDURE: The risks, benefits and alternatives were discussed with the patient; consent was obtained and placed in the patient's chart. The risks included but were not limited to bleeding, infection, non target organ injury. The patient was placed in the CT scanner and imaging was obtained through the abdomen. A reproducible target was demonstrated. The skin overlying the site of interest was localized and marked. The skin was sterilely prepped and draped in the usual fashion. Local lidocaine was administered in the skin and underlying tissues. A wire was passed through the existing catheter into the perinephric abscess. This collection was in line with the intraparenchymal renal abscess. A new catheter with metal stiffener was passed over the wire, the wire were removed, and stylette introduced into the metal stiffener. The catheter was advanced as a unit into the intraparenchymal renal abscess. The inner stylet was removed, a wire was passed into the intra parenchymal abscess, and images acquired confirming positioning. Next, the metal stiffener was removed and the catheter advanced and formed over the wire. The position was confirmed with CT and the catheter was secured to the skin. The patient tolerated the procedure well without complication. Conscious sedation was administered. The nurse administered fentanyl medications during the examination and monitored blood pressure, heart rate, and pulse oximeter. Physician intraservice time of 30 minutes. At least one of the following CT dose optimization techniques were used: Automated exposure control; Adjustment of mA and/or kV according to patient size; Use of iterative reconstruction technique. FINDINGS: CT identified the intraparenchymal left renal abscess which was selected for drainage. Intra procedural imaging confirmed appropriate catheter placement. Post procedure imaging showed no evidence for complication. Impression Successful CT-guided left intraparenchymal renal abscess drainage. Signed by: Liza Morataya David Sign Date/Time: 04/17/2019 6:[address] Abdomen Pelvis w Contrast Narrative CT ABDOMEN AND PELVIS WITH CONTRAST CLINICAL INFORMATION: Abdominal infection suspected. follow-up renal and perirenal abscesses, r/o abdominal abscess. COMPARISON: CT GUIDED DRAIN ABSCESS (04/16/2019); CT ABDOMEN W CONTRAST (04/15/2019); CT GUIDED DRAIN ABSCESS (04/12/2019); PROCEDURE: Axial images through the abdomen and pelvis after the administration of 100 ml Omnipaque 350 intravenous contrast. Multiplanar reconstructions. At least one of the following CT dose optimization techniques were used: Automated exposure control; Adjustment of mA and/or kV according to patient size; Use of iterative reconstruction technique. FINDINGS: LUNG BASES: No significant pulmonary abnormality. No pleural effusion or pneumothorax. Some asymmetric scarring in the right lung base. Stable. ABDOMEN Liver and Biliary: No solid hepatic lesion, but there is diffuse periportal edema. No cirrhosis. Vascular enhancement. Measures 24 cm in the superior inferior dimension at the level of the midclavicular line. Gallbladder not distended, no gallstones or pericholecystic fluid. Pancreas: Normal to technique without peripancreatic fluid collection or intrinsic lesion Spleen: Marked splenomegaly but without nearby fluid or adjacent lesion. Measures about 15 x 8 x 16 cm. Normal adrenals Kidneys: Structurally normal right kidney. Left kidney: Known intrasubstance parenchymal abscess in the midbody in lower pole of the left kidney, now approximated by pigtail catheter. The fluid collection immediately inferior to the left kidney measures about 3.7 by 3.7 by 1.9 cm and may not be drained by the catheter. With marked inflammatory changes in the anterior para and perinephric renal spaces on the left and the pole left kidney seems edematous and somewhat enlarged-especially the lower pole. Likely postprocedural gas about the catheter ABDOMEN AND PELVIS Bowel: No small bowel or colonic dilation or adjacent inflammation. No appendiceal dilation or inflammation. Vessels: No significant abnormality in the aorta or its proximal branches. No significant abnormality in the portal veins, mesenteric veins or systemic veins. Lymph Nodes: Marked periaortic retroperitoneal lymphadenopathy and marked confluent lymphadenopathy at the gerson hepatitis. Compared to the prior examination, these findings are preexistent, and stable to technique. No free air. No ascites. PELVIS Genitourinary: Distal ureters and bladder appear normal. No pelvic masses. BODY WALL Soft Tissues: No bowel or inflamed fat containing hernia, mass or hemorrhage. Bones: Focal disc endplate disease at L4-5 with osteophytosis, subchondral sclerosis and cystic changes Impression 1. Pigtail catheter now centrally located in the central phlegmonous section of the mid lower pole of the left kidney Marked local inflammatory changes and edema. Preexistent and within the spectrum of expected evolving findings with severe renal infection and intervention 2. Pimento like perinephric inflammatory fluid collection inferior to the lower pole of the left kidney. An appreciable collection of stable infected fluid, not seemingly drained by the catheter. 3. Marked but stable retroperitoneal lymphadenopathy and marked confluent lymphadenopathy in the gerson hepatitis. 4. Periportal edema and hepatosplenomegaly Signed by: Liza Alex Timothy Sign Date/Time: 04/20/2019 1:[address] Guided Drain Abscess Renal Narrative CT GUIDED DRAINAGE LEFT PARARENAL ABSCESS CLINICAL INFORMATION: Residual undrained left renal collection PROCEDURE: Prior to the procedure, risks and benefits were explained to the patient and informed written and verbal consent obtained. Patient was placed on the CT gantry and initial localizing scans were performed. Using lidocaine for local anesthesia and intravenous sedation, the region is punctured under CT guidance. Aspiration was performed yielding 8 mL of hemorrhagic and purulent fluid. The specimen was submitted to the laboratory for Gram stain and culture. An 0.35 guide wire is placed into the collection and the tract dilated up to 10 Spanish. A 10 Spanish catheter is then placed over the wire. Patient tolerated the procedure well. No immediate complications. Conscious sedation was administered. The nurse administered for 47 minutes, 200 mcg fentanyl and 4 mg Versed used for sedation. The patient was monitored by the nurse during the examination and monitored blood pressure, heart rate, and pulse oximeter. Physician intraservice time of 47 minutes. Estimated Blood Loss: Less than 10 cc's. At least one of the following CT dose optimization techniques were used: Automated exposure control; Adjustment of mA and/or kV according to patient size; Use of iterative reconstruction technique. Impression Uncomplicated drainage of left pararenal abscess. 8 mL of hemorrhagic and purulent fluid was aspirated. A 10 Spanish locking pigtail catheter is placed. Signed by: Liza Zeng Pushpender Sign Date/Time: 04/24/2019 2:56 PM Imaging: Imaging Reviewed. PROBLEM LIST Principal Problem: Kidney, perinephric abscess Active Problems: Pyelonephritis Tobacco abuse IV drug user Resolved Problems: * No resolved hospital problems. * ASSESSMENT & PLAN Continue concurrent treatment Sepsis secondary to Left pyelonephritis, renal abscess (MRSA) S/p placement of drain 04/09/19, then again 04/16/2019 due to persistent numerous renal abs cesses -Repeat CT scan 04/20/2019, improvement though appears to have an abscess not drained by maria esther morin -Dr. Morataya/IR --repeat CT-guided renal abscess 04/24/19. -MRSA -PICC line placed 04/19/2019 -Patient will require 4 weeks of IV daptomycin, till May 24 -Bag Turner involved looking at tentative placement? -Patient agreeable to plan of care -Stable -Drains to be removed on Tuesday -prn Ocycodone for pain Nicontine use Refuses nicotine patch History of methamphetamine abuse -Patient reports history of IV methamphetamine abuse, indicates that he last used approxima tely 1 week prior to admission, indicates he had been residing in [place] and had moved u to [place] to be with his mother, with intentions of stopping his drug. He confirms wantin g to stop and agrees to continuing hospitalization Disposition: Code Status: Full Code Milagro Zambrano MD 04/29/2019 12:05 hayer, David Tristan MD - 04/28/2019 9:30 AM PDT Interventional Radiology Progress Note Patient Name: Timothy Conrad Date of : 1985 Consulting Provider: David Morataya MD, PhD Interval History/Subjective: Timothy Conrad is a 34 y.o. male with MRSA renal abscesses s/p drain placement x3, now with in creasing leukocytosis. Labs: 3 Day Labs: Recent Labs Lab 04/28/19 0736 04/28/19 0627 04/27/19 0654 04/27/19 0416 04/24/19 0355 WBC 14.96* -- 10.99 -- -- -- HGB 12.6* -- 11.7* -- -- -- HCT 37.5* -- 34.0* -- -- -- PLT 287 -- 248 -- -- -- NA -- 139 140 -- -- -- K -- 4.2 3.9 4.1 < > -- CL -- 101 102 -- -- -- CO2 -- 27 30 -- -- -- BUN -- 10 10 -- -- -- CALCIUM -- 9.5 9.0 -- -- -- PTT -- -- -- -- -- 33* INR -- -- -- -- -- 1.0 < > = values in this interval not displayed. Pertinent Imaging/Procedures: Ct Abdomen W Contrast Result Date: 04/15/2019 CT ABDOMEN WITH CONTRAST CLINICAL INFORMATION: Follow-up renal abscess drainage. COMPARISON : CT GUIDED DRAIN ABSCESS (04/12/2019); PROCEDURE: Axial images through the abdomen after th e administration of 100 mL Omnipaque 350 intravenous contrast. Multiplanar reconstructions. At least one of the following CT dose optimization techniques were used: Automated exposure control; Adjustment of mA and/or kV according to patient size; Use of iterative reconstruct ion technique. FINDINGS: LUNG BASES: No significant pulmonary abnormality. No pleural effusi on or pneumothorax. ABDOMEN Liver and Biliary: Increased craniocaudal length of liver measur ing 24.2 cm. Mild periportal edema. The gallbladder is partially distended. No biliary di lation. Pancreas, Spleen and Adrenals: Enlarged spleen measuring approximately 16.5 cm in cr aniocaudal length. Normal pancreas and both adrenals. Kidneys: The right kidney is normal i n size and enhancement pattern. Enlarged edematous left kidney with pararenal edema. There is decreased enhancement in lower pole of the left kidney with a heterogeneous attenuation a geramin measuring 6.3 x 4.7 x 4.8 cm, image 88/series 3, image 49/series 6. Additional smaller intrarenal area of heterogeneous attenuation in interpolar left kidney measuring 3.2 x 3.1 x 2.9 cm. There is marked infiltration of pararenal fat with thickening of anterior and post erior pararenal fascia. Percutaneous pigtail catheter in-situ in left posterior pararenal s pace. Bowel: No small bowel or colonic dilation or adjacent inflammation. Vessels: No signif icant abnormality in the aorta or its proximal branches. No significant abnormality in the p ortal veins, mesenteric veins or systemic veins. Lymph Nodes: Multiple enlarged retroperiton eal lymph nodes. The index left para-aortic lymph node measuring 1.4 cm, image 84/series 3, nonspecific, probably reactive. The index inter aortocaval lymph node measuring 1.6 cm, im age 95/series 3. Peritoneum and Retroperitoneum: Small amount of fluid in left paracolic gut ter. Retroperitoneal left pararenal fat infiltration with thickening of anterior and early childhood education coordinator ior pararenal fascia. No pneumoperitoneum. BODY WALL Soft Tissues: No bowel or inflamed fat containing hernia, mass or hemorrhage. Mildly elevated right dome of the diaphragm. Mild subcutaneous edema of the body wall. Small fat containing paraumbilical hernia. Bones: No a cute fracture or vertebral end plate destruction. No lytic or blastic lesion. Moderate dege nerative disc disease at L4-L5 and L5-S1. Multiple Schmorl nodes at L4-L5. *Complicated acute left pyelonephritis with intrarenal abscess/phlegmon in lower pole of th e left kidney measuring 6.3 x 4.7 x 4.8 cm, causing renal capsular bulge. *Additional area o f focal pyelonephritis/small organized abscess or phlegmon in interpolar left kidney measuri ng 3.2 x 3.1 x 2.9 cm. Adjacent pigtail catheter in-situ in left posterior pararenal space. Interval decrease in size of the left pararenal abscess, status post percutaneous drainage. *Small amount of free fluid in left paracolic gutter. *Multiple enlarged retroperitoneal lym ph nodes, nonspecific, probably reactive. *Hepatosplenomegaly. *Additional findings as detai led above. Signed by: Liza Zeng, Pushpender Sign Date/Time: 04/15/2019 12:[address] Abdomen Pelvis W Contrast Result Date: 04/20/2019 CT ABDOMEN AND PELVIS WITH CONTRAST CLINICAL INFORMATION: Abdominal infection suspected. fo llow-up renal and perirenal abscesses, r/o abdominal abscess. COMPARISON: CT GUIDED DRAIN AB SCESS (04/16/2019); CT ABDOMEN W CONTRAST (04/15/2019); CT GUIDED DRAIN ABSCESS (04/12/2019) ; PROCEDURE: Axial images through the abdomen and pelvis after the administration of 100 ml Omnipaque 350 intravenous contrast. Multiplanar reconstructions. At least one of the followi ng CT dose optimization techniques were used: Automated exposure control; Adjustment of mA a nd/or kV according to patient size; Use of iterative reconstruction technique. FINDINGS: RAS G BASES: No significant pulmonary abnormality. No pleural effusion or pneumothorax. Some as ymmetric scarring in the right lung base. Stable. ABDOMEN Liver and Biliary: No solid hepati c lesion, but there is diffuse periportal edema. No cirrhosis. Vascular enhancement. Chelsea ures 24 cm in the superior inferior dimension at the level of the midclavicular line. Gallbl adder not distended, no gallstones or pericholecystic fluid. Pancreas: Normal to technique w ithout peripancreatic fluid collection or intrinsic lesion Spleen: Marked splenomegaly but w ithout nearby fluid or adjacent lesion. Measures about 15 x 8 x 16 cm. Normal adrenals Kidn eys: Structurally normal right kidney. Left kidney: Known intrasubstance parenchymal abscess in the midbody in lower pole of the left kidney, now approximated by pigtail catheter. The fluid collection immediately inferior to the left kidney measures about 3.7 by 3.7 by 1.9 cm and may not be drained by the catheter. With marked inflammatory changes in the anterior pa ra and perinephric renal spaces on the left and the pole left kidney seems edematous and sylvie ewhat enlarged-especially the lower pole. Likely postprocedural gas about the catheter ABDO MEN AND PELVIS Bowel: No small bowel or colonic dilation or adjacent inflammation. No append iceal dilation or inflammation. Vessels: No significant abnormality in the aorta or its prox imal branches. No significant abnormality in the portal veins, mesenteric veins or systemic veins. Lymph Nodes: Marked periaortic retroperitoneal lymphadenopathy and marked confluent l ymphadenopathy at the gerson hepatitis. Compared to the prior examination, these findings are preexistent, and stable to technique. No free air. No ascites. PELVIS Genitourinary: Dista l ureters and bladder appear normal. No pelvic masses. BODY WALL Soft Tissues: No bowel or inflamed fat containing hernia, mass or hemorrhage. Bones: Focal disc endplate disease at L4 -5 with osteophytosis, subchondral sclerosis and cystic changes 1. Pigtail catheter now centrally located in the central phlegmonous section of the mid lo wer pole of the left kidney Marked local inflammatory changes and edema. Preexistent and wi thin the spectrum of expected evolving findings with severe renal infection and intervention 2. Pimento like perinephric inflammatory fluid collection inferior to the lower pole of t he left kidney. An appreciable collection of stable infected fluid, not seemingly drained b y the catheter. 3. Marked but stable retroperitoneal lymphadenopathy and marked confluent l ymphadenopathy in the gerson hepatitis. 4. Periportal edema and hepatosplenomegaly Signed by : Liza Alex, Maverick Sign Date/Time: 04/20/2019 1:[address] Guided Drain Abscess Result Date: 04/17/2019 CT GUIDED LEFT KIDNEY ABSCESS DRAINAGE CLINICAL INFORMATION: 34-year-old male with left luisa al abscess and perinephric abscess status post perinephric abscess drainage. Patient contin ues to have leukocytosis and intermittent fevers and drainage of the left intraparenchymal r enal abscess is requested. COMPARISON: None. PROCEDURE: The risks, benefits and alternatives were discussed with the patient; consent was obtained and placed in the patient's chart. Th e risks included but were not limited to bleeding, infection, non target organ injury. The p atient was placed in the CT scanner and imaging was obtained through the abdomen. A reprodu cible target was demonstrated. The skin overlying the site of interest was localized and mar ked. The skin was sterilely prepped and draped in the usual fashion. Local lidocaine was adm inistered in the skin and underlying tissues. A wire was passed through the existing cathet er into the perinephric abscess. This collection was in line with the intraparenchymal crow l abscess. A new catheter with metal stiffener was passed over the wire, the wire were kendell charly, and stylette introduced into the metal stiffener. The catheter was advanced as a unit into the intraparenchymal renal abscess. The inner stylet was removed, a wire was passed in to the intra parenchymal abscess, and images acquired confirming positioning. Next, the meta l stiffener was removed and the catheter advanced and formed over the wire. The position wa s confirmed with CT and the catheter was secured to the skin. The patient tolerated the pro cedure well without complication. Conscious sedation was administered. The nurse administer ed fentanyl medications during the examination and monitored blood pressure, heart rate, and pulse oximeter. Physician intraservice time of 30 minutes. At least one of the following CT dose optimization techniques were used: Automated exposure control; Adjustment of mA and/or kV according to patient size; Use of iterative reconstruction technique. FINDINGS: CT ident ified the intraparenchymal left renal abscess which was selected for drainage. Intra procedu ral imaging confirmed appropriate catheter placement. Post procedure imaging showed no evide nce for complication. Successful CT-guided left intraparenchymal renal abscess drainage. Signed by: Liza Morataya David Sign Date/Time: 04/17/2019 6:[address] Guided Drain Abscess Result Date: 04/13/2019 CT GUIDED LEFT PERINEPHRIC ABSCESS DRAINAGE CLINICAL INFORMATION: 34-year-old male with lef t perinephric abscess. COMPARISON: None. PROCEDURE: The risks, benefits and alternatives wer e discussed with the patient; consent was obtained and placed in the patient's chart. The ri sks included but were not limited to bleeding, infection, non target organ injury. The patie nt was placed in the CT scanner and imaging was obtained through the abdomen and pelvis. A reproducible target was demonstrated. The skin overlying the site of interest was localized and marked. The skin was sterilely prepped and draped in the usual fashion. Local lidocaine was administered in the skin and underlying tissues, and a tiny dermatotomy was made. Under CT guidance, a 18 gauge needle system was used to access the target. A wire was positioned t hrough the needle system into the fluid collection. Serial dilatation was performed to the a ppropriate level and a 10 Spanish multipurpose drainage catheter was placed and secured to th e skin under CT guidance. The patient tolerated the procedure well without complication. Con scious sedation was administered. The nurse administered fentanyl and Versed medications du ring the examination and monitored blood pressure, heart rate, and pulse oximeter. Physician intraservice time of 30 minutes. At least one of the following CT dose optimization techniq ues were used: Automated exposure control; Adjustment of mA and/or kV according to patient s ize; Use of iterative reconstruction technique. FINDINGS: CT identified the left perinephric abscess, which was selected for drainage. Intra procedural imaging confirmed appropriate ca theter placement. Post procedure imaging showed no evidence for complication. Successful CT-guided left perinephric abscess drainage. Signed by: Liza Morataya David Sign Date/Time: 04/13/2019 6:[address] Guided Drain Abscess Renal Result Date: 04/24/2019 CT GUIDED DRAINAGE LEFT PARARENAL ABSCESS CLINICAL INFORMATION: Residual undrained left luisa al collection PROCEDURE: Prior to the procedure, risks and benefits were explained to the pa tient and informed written and verbal consent obtained. Patient was placed on the CT gantry and initial localizing scans were performed. Using lidocaine for local anesthesia and intrav enous sedation, the region is punctured under CT guidance. Aspiration was performed yieldin g 8 mL of hemorrhagic and purulent fluid. The specimen was submitted to the laboratory for Gram stain and culture. An 0.35 guide wire is placed into the collection and the tract dilat ed up to 10 Spanish. A 10 Spanish catheter is then placed over the wire. Patient tolerated th e procedure well. No immediate complications. Conscious sedation was administered. The nurs e administered for 47 minutes, 200 mcg fentanyl and 4 mg Versed used for sedation. The keyanna ent was monitored by the nurse during the examination and monitored blood pressure, heart ra te, and pulse oximeter. Physician intraservice time of 47 minutes. Estimated Blood Loss: Les s than 10 cc's. At least one of the following CT dose optimization techniques were used: Aut omated exposure control; Adjustment of mA and/or kV according to patient size; Use of iterat jerome reconstruction technique. Uncomplicated drainage of left pararenal abscess. 8 mL of hemorrhagic and purulent fluid w as aspirated. A 10 Spanish locking pigtail catheter is placed. Signed by: Liza Zeng, Shital emanuel Sign Date/Time: 04/24/2019 2:56 PM Physical Examination: Vitals: 04/28/19 0737 BP: 163/81 Pulse: 110 Resp: 20 Temp: 36.4 C (97.6 F) Physical Exam Constitutional: He is oriented to person, place, and time and well-developed, well-nourishe d, and in no distress. HENT: Head: Normocephalic. Cardiovascular: Normal rate. Pulmonary/Chest: Effort normal. Abdominal: Soft. Minimal drain output, superior drain flushes and aspirates but causes discomfort. Inferior drain does not flush or aspirate. Neurological: He is alert and oriented to person, place, and time. GCS score is 15. Skin: Skin is warm and dry. Psychiatric: Affect normal. Unhappy about having drains in place Assessment and Plan: 34M w renal abscesses s/p drain placement x3 with minimal output, now with increasing leuko cytosis. - Consider repeat CT abdomen/pelvis with contrast given increasing white count. Electronically signed by: David Morataya MD 04/28/2019 9:30 Vascular and Interventional Radiology Milagro Swenson MD - 04/28/2019 5:48 AM PDT [facility] Service: Hospitalist Progress Note Hospital Day: LOS: 17 days SUBJECTIVE Patient Summary: From HPI Transfer note Dr. Do:" Mr. Conrad is a 34 yr old man with chronic HCV infection presented at [facility] ED for 1 week for constant LLQ pain that radiates to the back and intermittent feverrs. He had leuko cytosis. CT abdomen showed findings concerning for left pyelonephritis with developing intr arenal abscess; large loculation with perinephric inflammatory changes consistent with an ab scess. Patient was transferred here for possible IR drainage. Patient underwent IR placement of drainage on 04/12/19. 20cc of purulent drainage was obtain. Drained fluid was + MRSA. I D was on board and has been managing antibiotic. " Events Overnight: Dr. Mendoza 04/24/19 34-year-old male history of hepatitis C, IV methamphetamine drug abuse , admitted on 2018 with left flank pain, CT scan showed 6.3 cm renal abscesses, interventional radiology c onsulted, CT-guided drainage , cultures growing MRSA, repeat CT scan, required repeat CT-luis ded drainage, left perinephritic tube drained approximately 30 mL's serous fluid. 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 Morataya notified, patient will be placed n.p.o. after midnight, repeat CT-guided drainage for tomor jaylon. Otherwise patient continues to do well is been calm cooperative, spends most of the day sle eping, watching TV and eating Afebrile Minimal back pain 04/28/19 Resting. Appears comfortable, back pain improved. Remains afebrile. Adequate PO int morenita. Scheduled Medications DAPTOmycin 6 mg/kg Intravenous Q24H enoxaparin 40 mg Subcutaneous Daily nicotine 1 patch Transdermal Daily sodium chloride 0.9% injection 20 mL Intracatheter 2 times per day PRN Medications acetaminophen, ibuprofen, LORazepam, ondansetron, oxyCODONE, polyethylene glycol, Potassium replacement - NON ICU AND Potassium AND potassium chloride AND potassium chlori de OBJECTIVE Vital Signs: BP 144/82 | Pulse 104 | Temp 37.2 C (98.9 F) (Oral) | Resp 22 | Ht 1.88 m (6' 2") | Wt 94 kg (207 lb 3.7 oz) | SpO2 97% | BMI 26.61 kg/m Patient Vitals for the past 24 hrs: BP Temp Temp src Pulse Resp SpO2 Weight 04/28/19 0315 144/82 37.2 C (98.9 F) Oral 104 22 97 % 94 kg (207 lb 3.7 oz) 04/27/19 2308 (!) 157/93 37.1 C (98.8 F) Oral 109 20 98 % 04/27/19 1922 149/85 37.3 C (99.2 F) Oral 98 22 99 % 04/27/19 1550 (!) 148/91 36.7 C (98 F) Oral 84 20 100 % 04/27/19 1146 139/87 37.1 C (98.7 F) Oral 83 20 100 % 04/27/19 0747 133/65 37.3 C (99.2 F) Oral 82 20 100 % 14:LAST:1 91.5 kg (04/12/19 0428) Last: 94 kg (04/28/19314) Difference: 2.5kg Weight change: Intake/Output Summary (Last 24 hours) at 04/28/2019 0548 Last data filed at 04/28/2019315 Gross per 24 hour Intake 1180 ml Output 40 ml Net 1140 ml Body mass index is 26.61 kg/m. Physical Exam Constitutional: He is oriented to person, place, and time. He appears well-developed and we ll-nourished. HENT: Head: Normocephalic and atraumatic. Eyes: Pupils are equal, round, and reactive to light. EOM are normal. Cardiovascular: Normal rate and regular rhythm. Pulmonary/Chest: Effort normal and breath sounds normal. No stridor. No respiratory distres s. Abdominal: Soft. He exhibits no distension. There is no tenderness. Musculoskeletal: Normal range of motion. Neurological: He is alert and oriented to person, place, and time. No cranial nerve deficit . Skin: Skin is warm and dry. No erythema. Psychiatric: Often angry DATA Recent Labs 04/27/19 0654 WBC 10.99 HGB 11.7* HCT 34.0* PLT 248 MCV 83.0 Recent Labs Lab 04/27/19 0654 04/27/19 0416 04/26/19 0406 NA 140 -- -- K 3.9 4.1 3.8 CL 102 -- -- CO2 30 -- -- ANIONGAP 12 -- -- BUN 10 -- -- CREA 0.70 -- -- CALCIUM 9.0 -- -- Recent Labs 04/27/19 0654 GLU 99 No results for input(s): TROPONIN, BNP in the last 72 hours. Recent Labs Lab 04/24/19 0355 INR 1.0 PTT 33* No results for input(s): IRON, TIBC, PCTSAT, FERRITIN, TSH, [id number], FOLATE in the last 168 hours. No results for input(s): LACTATE, PROCALCITONI, CRP, ESR in the last 168 hours. No results for input(s): AMYLASE, LIPASE in the last 168 hours. No results for input(s): TRIG, CHOL, HDL, LDL in the last 168 hours. No results for input(s): AMMONIA in the last 168 hours. Recent Results (from the past 360 hour(s)) CT Abdomen w Contrast Narrative CT ABDOMEN WITH CONTRAST CLINICAL INFORMATION: Follow-up renal abscess drainage. COMPARISON: CT GUIDED DRAIN ABSCESS (04/12/2019); PROCEDURE: Axial images through the abdomen after the administration of 100 mL Omnipaque 350 intravenous contrast. Multiplanar reconstructions. At least one of the following CT dose optimization techniques were used: Automated exposure control; Adjustment of mA and/or kV according to patient size; Use of iterative reconstruction technique. FINDINGS: LUNG BASES: No significant pulmonary abnormality. No pleural effusion or pneumothorax. ABDOMEN Liver and Biliary: Increased craniocaudal length of liver measuring 24.2 cm. Mild periportal edema. The gallbladder is partially distended. No biliary dilation. Pancreas, Spleen and Adrenals: Enlarged spleen measuring approximately 16.5 cm in craniocaudal length. Normal pancreas and both adrenals. Kidneys: The right kidney is normal in size and enhancement pattern. Enlarged edematous left kidney with pararenal edema. There is decreased enhancement in lower pole of the left kidney with a heterogeneous attenuation area measuring 6.3 x 4.7 x 4.8 cm, image 88/series 3, image 49/series 6. Additional smaller intrarenal area of heterogeneous attenuation in interpolar left kidney measuring 3.2 x 3.1 x 2.9 cm. There is marked infiltration of pararenal fat with thickening of anterior and posterior pararenal fascia. Percutaneous pigtail catheter in-situ in left posterior pararenal space. Bowel: No small bowel or colonic dilation or adjacent inflammation. Vessels: No significant abnormality in the aorta or its proximal branches. No significant abnormality in the portal veins, mesenteric veins or systemic veins. Lymph Nodes: Multiple enlarged retroperitoneal lymph nodes. The index left para-aortic lymph node measuring 1.4 cm, image 84/series 3, nonspecific, probably reactive. The index inter aortocaval lymph node measuring 1.6 cm, image 95/series 3. Peritoneum and Retroperitoneum: Small amount of fluid in left paracolic gutter. Retroperitoneal left pararenal fat infiltration with thickening of anterior and posterior pararenal fascia. No pneumoperitoneum. BODY WALL Soft Tissues: No bowel or inflamed fat containing hernia, mass or hemorrhage. Mildly elevated right dome of the diaphragm. Mild subcutaneous edema of the body wall. Small fat containing paraumbilical hernia. Bones: No acute fracture or vertebral end plate destruction. No lytic or blastic lesion. Moderate degenerative disc disease at L4-L5 and L5-S1. Multiple Schmorl nodes at L4-L5. Impression *Complicated acute left pyelonephritis with intrarenal abscess/phlegmon in lower pole of the left kidney measuring 6.3 x 4.7 x 4.8 cm, causing renal capsular bulge. *Additional area of focal pyelonephritis/small organized abscess or phlegmon in interpolar left kidney measuring 3.2 x 3.1 x 2.9 cm. Adjacent pigtail catheter in-situ in left posterior pararenal space. Interval decrease in size of the left pararenal abscess, status post percutaneous drainage. *Small amount of free fluid in left paracolic gutter. *Multiple enlarged retroperitoneal lymph nodes, nonspecific, probably reactive. *Hepatosplenomegaly. *Additional findings as detailed above. Signed by: Liza Zeng, Bkder Sign Date/Time: 04/15/2019 12:[address] Guided Drain Abscess Narrative CT GUIDED LEFT KIDNEY ABSCESS DRAINAGE CLINICAL INFORMATION: 34-year-old male with left renal abscess and perinephric abscess status post perinephric abscess drainage. Patient continues to have leukocytosis and intermittent fevers and drainage of the left intraparenchymal renal abscess is requested. COMPARISON: None. PROCEDURE: The risks, benefits and alternatives were discussed with the patient; consent was obtained and placed in the patient's chart. The risks included but were not limited to bleeding, infection, non target organ injury. The patient was placed in the CT scanner and imaging was obtained through the abdomen. A reproducible target was demonstrated. The skin overlying the site of interest was localized and marked. The skin was sterilely prepped and draped in the usual fashion. Local lidocaine was administered in the skin and underlying tissues. A wire was passed through the existing catheter into the perinephric abscess. This collection was in line with the intraparenchymal renal abscess. A new catheter with metal stiffener was passed over the wire, the wire were removed, and stylette introduced into the metal stiffener. The catheter was advanced as a unit into the intraparenchymal renal abscess. The inner stylet was removed, a wire was passed into the intra parenchymal abscess, and images acquired confirming positioning. Next, the metal stiffener was removed and the catheter advanced and formed over the wire. The position was confirmed with CT and the catheter was secured to the skin. The patient tolerated the procedure well without complication. Conscious sedation was administered. The nurse administered fentanyl medications during the examination and monitored blood pressure, heart rate, and pulse oximeter. Physician intraservice time of 30 minutes. At least one of the following CT dose optimization techniques were used: Automated exposure control; Adjustment of mA and/or kV according to patient size; Use of iterative reconstruction technique. FINDINGS: CT identified the intraparenchymal left renal abscess which was selected for drainage. Intra procedural imaging confirmed appropriate catheter placement. Post procedure imaging showed no evidence for complication. Impression Successful CT-guided left intraparenchymal renal abscess drainage. Signed by: Liza Morataya David Sign Date/Time: 04/17/2019 6:[address] Abdomen Pelvis w Contrast Narrative CT ABDOMEN AND PELVIS WITH CONTRAST CLINICAL INFORMATION: Abdominal infection suspected. follow-up renal and perirenal abscesses, r/o abdominal abscess. COMPARISON: CT GUIDED DRAIN ABSCESS (04/16/2019); CT ABDOMEN W CONTRAST (04/15/2019); CT GUIDED DRAIN ABSCESS (04/12/2019); PROCEDURE: Axial images through the abdomen and pelvis after the administration of 100 ml Omnipaque 350 intravenous contrast. Multiplanar reconstructions. At least one of the following CT dose optimization techniques were used: Automated exposure control; Adjustment of mA and/or kV according to patient size; Use of iterative reconstruction technique. FINDINGS: LUNG BASES: No significant pulmonary abnormality. No pleural effusion or pneumothorax. Some asymmetric scarring in the right lung base. Stable. ABDOMEN Liver and Biliary: No solid hepatic lesion, but there is diffuse periportal edema. No cirrhosis. Vascular enhancement. Measures 24 cm in the superior inferior dimension at the level of the midclavicular line. Gallbladder not distended, no gallstones or pericholecystic fluid. Pancreas: Normal to technique without peripancreatic fluid collection or intrinsic lesion Spleen: Marked splenomegaly but without nearby fluid or adjacent lesion. Measures about 15 x 8 x 16 cm. Normal adrenals Kidneys: Structurally normal right kidney. Left kidney: Known intrasubstance parenchymal abscess in the midbody in lower pole of the left kidney, now approximated by pigtail catheter. The fluid collection immediately inferior to the left kidney measures about 3.7 by 3.7 by 1.9 cm and may not be drained by the catheter. With marked inflammatory changes in the anterior para and perinephric renal spaces on the left and the pole left kidney seems edematous and somewhat enlarged-especially the lower pole. Likely postprocedural gas about the catheter ABDOMEN AND PELVIS Bowel: No small bowel or colonic dilation or adjacent inflammation. No appendiceal dilation or inflammation. Vessels: No significant abnormality in the aorta or its proximal branches. No significant abnormality in the portal veins, mesenteric veins or systemic veins. Lymph Nodes: Marked periaortic retroperitoneal lymphadenopathy and marked confluent lymphadenopathy at the gerson hepatitis. Compared to the prior examination, these findings are preexistent, and stable to technique. No free air. No ascites. PELVIS Genitourinary: Distal ureters and bladder appear normal. No pelvic masses. BODY WALL Soft Tissues: No bowel or inflamed fat containing hernia, mass or hemorrhage. Bones: Focal disc endplate disease at L4-5 with osteophytosis, subchondral sclerosis and cystic changes Impression 1. Pigtail catheter now centrally located in the central phlegmonous section of the mid lower pole of the left kidney Marked local inflammatory changes and edema. Preexistent and within the spectrum of expected evolving findings with severe renal infection and intervention 2. Pimento like perinephric inflammatory fluid collection inferior to the lower pole of the left kidney. An appreciable collection of stable infected fluid, not seemingly drained by the catheter. 3. Marked but stable retroperitoneal lymphadenopathy and marked confluent lymphadenopathy in the gerson hepatitis. 4. Periportal edema and hepatosplenomegaly Signed by: Liza Alex Timothy Sign Date/Time: 04/20/2019 1:[address] Guided Drain Abscess Renal Narrative CT GUIDED DRAINAGE LEFT PARARENAL ABSCESS CLINICAL INFORMATION: Residual undrained left renal collection PROCEDURE: Prior to the procedure, risks and benefits were explained to the patient and informed written and verbal consent obtained. Patient was placed on the CT gantry and initial localizing scans were performed. Using lidocaine for local anesthesia and intravenous sedation, the region is punctured under CT guidance. Aspiration was performed yielding 8 mL of hemorrhagic and purulent fluid. The specimen was submitted to the laboratory for Gram stain and culture. An 0.35 guide wire is placed into the collection and the tract dilated up to 10 Spanish. A 10 Spanish catheter is then placed over the wire. Patient tolerated the procedure well. No immediate complications. Conscious sedation was administered. The nurse administered for 47 minutes, 200 mcg fentanyl and 4 mg Versed used for sedation. The patient was monitored by the nurse during the examination and monitored blood pressure, heart rate, and pulse oximeter. Physician intraservice time of 47 minutes. Estimated Blood Loss: Less than 10 cc's. At least one of the following CT dose optimization techniques were used: Automated exposure control; Adjustment of mA and/or kV according to patient size; Use of iterative reconstruction technique. Impression Uncomplicated drainage of left pararenal abscess. 8 mL of hemorrhagic and purulent fluid was aspirated. A 10 Spanish locking pigtail catheter is placed. Signed by: Liza Zeng Pushpender Sign Date/Time: 04/24/2019 2:56 PM Imaging: Imaging Reviewed. PROBLEM LIST Principal Problem: Kidney, perinephric abscess Active Problems: Pyelonephritis Tobacco abuse IV drug user Resolved Problems: * No resolved hospital problems. * ASSESSMENT & PLAN Sepsis secondary to Left pyelonephritis, renal abscess (MRSA) S/p placement of drain 04/09/19, then again 04/16/2019 due to persistent numerous renal abs cesses -Repeat CT scan 04/20/2019, improvement though appears to have an abscess not drained by maria esther morin -Dr. Morataya/IR --repeat CT-guided renal abscess 04/24/19. -MRSA -PICC line placed 04/19/2019 -Patient will require 4 weeks of IV daptomycin, till May 24 -Bag Turner involved looking at tentative placement? -Patient agreeable to plan of care -Stable -Drains to be removed on Tuesday -prn Ocycodone for pain Nicontine use Refuses nicotine patch History of methamphetamine abuse -Patient reports history of IV methamphetamine abuse, indicates that he last used approxima tely 1 week prior to admission, indicates he had been residing in [place] and had moved u p to [place] to be with his mother, with intentions of stopping his drug. He confirms wantin g to stop and agrees to continuing hospitalization Disposition: Code Status: Full Code Milagro Zambrano MD 04/28/2019 5:48 Mary Jo Fontana RN - 1 06/27/2018 4:47 PM PDTPt is up independently in room. Drains continued to be irrigated and IR physician was here and states if they continue to put out small amount of drainage he may pull the drains on Tuesday. Picc patent. Medicate periodically with oxycodone. End of shif t chart check complete. Noted [id number] 04/27/2019 @ [id number] lectronically signed by Mary Jo Spangler RN at 04/27/2019 4:53 PM Ivonne Moran RN - 04/27/2019 9:09 AM PDTInfection Prevention Note: Pt currently has a MRSA positive wound culture. Pt should remain on Contact Isolation for the entire hospitalization. Thank you for ordering and documenting on contact precautions! Ivonne Mathew, RN, MSN, Infection Prevention Coordinator Milagro Swenson MD - 04/27/2019 5:49 AM PDTFormatt ing of this note might be different from the original. [facility] Service: Hospitalist Progress Note Hospital Day: LOS: 16 days SUBJECTIVE Patient Summary: From HPI Transfer note Dr. Do:" Mr. Conrad is a 34 yr old man with chronic HCV infection presented at [facility] ED for 1 week for constant LLQ pain that radiates to the back and intermittent feverrs. He had leuko cytosis. CT abdomen showed findings concerning for left pyelonephritis with developing intr arenal abscess; large loculation with perinephric inflammatory changes consistent with an ab scess. Patient was transferred here for possible IR drainage. Patient underwent IR placement of drainage on 04/12/19. 20cc of purulent drainage was obtain. Drained fluid was + MRSA. I D was on board and has been managing antibiotic. " Events Overnight: Dr. Tanner 04/24/19 34-year-old male history of hepatitis C, IV methamphetamine drug abuse , admitted on 2018 with left flank pain, CT scan showed 6.3 cm renal abscesses, interventional radiology c onsulted, CT-guided drainage , cultures growing MRSA, repeat CT scan, required repeat CT-luis ded drainage, left perinephritic tube drained approximately 30 mL's serous fluid. 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 Morataya notified, patient will be placed n.p.o. after midnight, repeat CT-guided drainage for yuri jaylon. Otherwise patient continues to do well is been calm cooperative, spends most of the day sle eping, watching TV and eating Afebrile Minimal back pain 04/27/19 Resting. Appears comfortable but continues to complain of back pain. Remains afebri le. Scheduled Medications DAPTOmycin 6 mg/kg Intravenous Q24H enoxaparin 40 mg Subcutaneous Daily nicotine 1 patch Transdermal Daily sodium chloride 0.9% injection 20 mL Intracatheter 2 times per day PRN Medications acetaminophen, HYDROcodone-acetaminophen, ibuprofen, LORazepam, ondansetron, polyethylene g lycol, Potassium replacement - NON ICU AND Potassium AND potassium chloride AND potassium chloride OBJECTIVE Vital Signs: BP 129/71 | Pulse 72 | Temp 36.8 C (98.2 F) (Oral) | Resp 20 | Ht 1.88 m (6' 2") | Wt 93.5 kg (206 lb 2.1 oz) | SpO2 100% | BMI 26.47 kg/m Patient Vitals for the past 24 hrs: BP Temp Temp src Pulse Resp SpO2 04/27/19 0417 129/71 36.8 C (98.2 F) Oral 72 20 100 % 04/26/19 2344 149/82 36.8 C (98.2 F) Oral 82 20 100 % 04/26/192015 36.7 C (98 F) Oral 105 20 100 % 04/26/192009 138/67 103 92 % 04/26/19 1622 127/76 36.6 C (97.8 F) Oral 94 22 100 % 04/26/19 1203 134/75 35.8 C (96.5 F) Axillary 87 16 97 % 04/26/19 0753 131/67 36.2 C (97.2 F) Axillary 77 16 100 % 14:LAST:1 91.5 kg (04/12/19 0428) Last: 93.5 kg (04/26/19 0400) Difference: 2kg Weight change: Intake/Output Summary (Last 24 hours) at 04/27/2019 0549 Last data filed at 04/26/20192051 Gross per 24 hour Intake 2320 ml Output Net 2320 ml Body mass index is 26.47 kg/m. Physical Exam Constitutional: He is oriented to person, place, and time. He appears well-developed and we ll-nourished. HENT: Head: Normocephalic and atraumatic. Eyes: Pupils are equal, round, and reactive to light. EOM are normal. Cardiovascular: Normal rate and regular rhythm. Pulmonary/Chest: Effort normal and breath sounds normal. No stridor. No respiratory distres s. Abdominal: Soft. He exhibits no distension. There is no tenderness. Musculoskeletal: Normal range of motion. Neurological: He is alert and oriented to person, place, and time. No cranial nerve deficit . Skin: Skin is warm and dry. No erythema. Psychiatric: Often angry DATA No results for input(s): WBC, HGB, HCT, PLT, MCV in the last 72 hours. Invalid input(s): BANDSPCT Recent Labs Lab 04/27/19 0416 04/26/19 0406 04/25/19 0436 K 4.1 3.8 4.1 No results for input(s): GLU in the last 72 hours. No results for input(s): TROPONIN, BNP in the last 72 hours. Recent Labs Lab 04/24/19 0355 INR 1.0 PTT 33* No results for input(s): IRON, TIBC, PCTSAT, FERRITIN, TSH, [id number], FOLATE in the last 168 hours. No results for input(s): LACTATE, PROCALCITONI, CRP, ESR in the last 168 hours. No results for input(s): AMYLASE, LIPASE in the last 168 hours. No results for input(s): TRIG, CHOL, HDL, LDL in the last 168 hours. No results for input(s): AMMONIA in the last 168 hours. Recent Results (from the past 360 hour(s)) CT Guided Drain Abscess Narrative CT GUIDED LEFT PERINEPHRIC ABSCESS DRAINAGE CLINICAL INFORMATION: 34-year-old male with left perinephric abscess. COMPARISON: None. PROCEDURE: The risks, benefits and alternatives were discussed with the patient; consent was obtained and placed in the patient's chart. The risks included but were not limited to bleeding, infection, non target organ injury. The patient was placed in the CT scanner and imaging was obtained through the abdomen and pelvis. A reproducible target was demonstrated. The skin overlying the site of interest was localized and marked. The skin was sterilely prepped and draped in the usual fashion. Local lidocaine was administered in the skin and underlying tissues, and a tiny dermatotomy was made. Under CT guidance, a 18 gauge needle system was used to access the target. A wire was positioned through the needle system into the fluid collection. Serial dilatation was performed to the appropriate level and a 10 Spanish multipurpose drainage catheter was placed and secured to the skin under CT guidance. The patient tolerated the procedure well without complication. Conscious sedation was administered. The nurse administered fentanyl and Versed medications during the examination and monitored blood pressure, heart rate, and pulse oximeter. Physician intraservice time of 30 minutes. At least one of the following CT dose optimization techniques were used: Automated exposure control; Adjustment of mA and/or kV according to patient size; Use of iterative reconstruction technique. FINDINGS: CT identified the left perinephric abscess, which was selected for drainage. Intra procedural imaging confirmed appropriate catheter placement. Post procedure imaging showed no evidence for complication. Impression Successful CT-guided left perinephric abscess drainage. Signed by: Liza Morataya David Sign Date/Time: 04/13/2019 6:[address] Abdomen w Contrast Narrative CT ABDOMEN WITH CONTRAST CLINICAL INFORMATION: Follow-up renal abscess drainage. COMPARISON: CT GUIDED DRAIN ABSCESS (04/12/2019); PROCEDURE: Axial images through the abdomen after the administration of 100 mL Omnipaque 350 intravenous contrast. Multiplanar reconstructions. At least one of the following CT dose optimization techniques were used: Automated exposure control; Adjustment of mA and/or kV according to patient size; Use of iterative reconstruction technique. FINDINGS: LUNG BASES: No significant pulmonary abnormality. No pleural effusion or pneumothorax. ABDOMEN Liver and Biliary: Increased craniocaudal length of liver measuring 24.2 cm. Mild periportal edema. The gallbladder is partially distended. No biliary dilation. Pancreas, Spleen and Adrenals: Enlarged spleen measuring approximately 16.5 cm in craniocaudal length. Normal pancreas and both adrenals. Kidneys: The right kidney is normal in size and enhancement pattern. Enlarged edematous left kidney with pararenal edema. There is decreased enhancement in lower pole of the left kidney with a heterogeneous attenuation area measuring 6.3 x 4.7 x 4.8 cm, image 88/series 3, image 49/series 6. Additional smaller intrarenal area of heterogeneous attenuation in interpolar left kidney measuring 3.2 x 3.1 x 2.9 cm. There is marked infiltration of pararenal fat with thickening of anterior and posterior pararenal fascia. Percutaneous pigtail catheter in-situ in left posterior pararenal space. Bowel: No small bowel or colonic dilation or adjacent inflammation. Vessels: No significant abnormality in the aorta or its proximal branches. No significant abnormality in the portal veins, mesenteric veins or systemic veins. Lymph Nodes: Multiple enlarged retroperitoneal lymph nodes. The index left para-aortic lymph node measuring 1.4 cm, image 84/series 3, nonspecific, probably reactive. The index inter aortocaval lymph node measuring 1.6 cm, image 95/series 3. Peritoneum and Retroperitoneum: Small amount of fluid in left paracolic gutter. Retroperitoneal left pararenal fat infiltration with thickening of anterior and posterior pararenal fascia. No pneumoperitoneum. BODY WALL Soft Tissues: No bowel or inflamed fat containing hernia, mass or hemorrhage. Mildly elevated right dome of the diaphragm. Mild subcutaneous edema of the body wall. Small fat containing paraumbilical hernia. Bones: No acute fracture or vertebral end plate destruction. No lytic or blastic lesion. Moderate degenerative disc disease at L4-L5 and L5-S1. Multiple Schmorl nodes at L4-L5. Impression *Complicated acute left pyelonephritis with intrarenal abscess/phlegmon in lower pole of the left kidney measuring 6.3 x 4.7 x 4.8 cm, causing renal capsular bulge. *Additional area of focal pyelonephritis/small organized abscess or phlegmon in interpolar left kidney measuring 3.2 x 3.1 x 2.9 cm. Adjacent pigtail catheter in-situ in left posterior pararenal space. Interval decrease in size of the left pararenal abscess, status post percutaneous drainage. *Small amount of free fluid in left paracolic gutter. *Multiple enlarged retroperitoneal lymph nodes, nonspecific, probably reactive. *Hepatosplenomegaly. *Additional findings as detailed above. Signed by: Liza Zeng, Agustinpender Sign Date/Time: 04/15/2019 12:[address] Guided Drain Abscess Narrative CT GUIDED LEFT KIDNEY ABSCESS DRAINAGE CLINICAL INFORMATION: 34-year-old male with left renal abscess and perinephric abscess status post perinephric abscess drainage. Patient continues to have leukocytosis and intermittent fevers and drainage of the left intraparenchymal renal abscess is requested. COMPARISON: None. PROCEDURE: The risks, benefits and alternatives were discussed with the patient; consent was obtained and placed in the patient's chart. The risks included but were not limited to bleeding, infection, non target organ injury. The patient was placed in the CT scanner and imaging was obtained through the abdomen. A reproducible target was demonstrated. The skin overlying the site of interest was localized and marked. The skin was sterilely prepped and draped in the usual fashion. Local lidocaine was administered in the skin and underlying tissues. A wire was passed through the existing catheter into the perinephric abscess. This collection was in line with the intraparenchymal renal abscess. A new catheter with metal stiffener was passed over the wire, the wire were removed, and stylette introduced into the metal stiffener. The catheter was advanced as a unit into the intraparenchymal renal abscess. The inner stylet was removed, a wire was passed into the intra parenchymal abscess, and images acquired confirming positioning. Next, the metal stiffener was removed and the catheter advanced and formed over the wire. The position was confirmed with CT and the catheter was secured to the skin. The patient tolerated the procedure well without complication. Conscious sedation was administered. The nurse administered fentanyl medications during the examination and monitored blood pressure, heart rate, and pulse oximeter. Physician intraservice time of 30 minutes. At least one of the following CT dose optimization techniques were used: Automated exposure control; Adjustment of mA and/or kV according to patient size; Use of iterative reconstruction technique. FINDINGS: CT identified the intraparenchymal left renal abscess which was selected for drainage. Intra procedural imaging confirmed appropriate catheter placement. Post procedure imaging showed no evidence for complication. Impression Successful CT-guided left intraparenchymal renal abscess drainage. Signed by: Liza Morataya David Sign Date/Time: 04/17/2019 6:[address] Abdomen Pelvis w Contrast Narrative CT ABDOMEN AND PELVIS WITH CONTRAST CLINICAL INFORMATION: Abdominal infection suspected. follow-up renal and perirenal abscesses, r/o abdominal abscess. COMPARISON: CT GUIDED DRAIN ABSCESS (04/16/2019); CT ABDOMEN W CONTRAST (04/15/2019); CT GUIDED DRAIN ABSCESS (04/12/2019); PROCEDURE: Axial images through the abdomen and pelvis after the administration of 100 ml Omnipaque 350 intravenous contrast. Multiplanar reconstructions. At least one of the following CT dose optimization techniques were used: Automated exposure control; Adjustment of mA and/or kV according to patient size; Use of iterative reconstruction technique. FINDINGS: LUNG BASES: No significant pulmonary abnormality. No pleural effusion or pneumothorax. Some asymmetric scarring in the right lung base. Stable. ABDOMEN Liver and Biliary: No solid hepatic lesion, but there is diffuse periportal edema. No cirrhosis. Vascular enhancement. Measures 24 cm in the superior inferior dimension at the level of the midclavicular line. Gallbladder not distended, no gallstones or pericholecystic fluid. Pancreas: Normal to technique without peripancreatic fluid collection or intrinsic lesion Spleen: Marked splenomegaly but without nearby fluid or adjacent lesion. Measures about 15 x 8 x 16 cm. Normal adrenals Kidneys: Structurally normal right kidney. Left kidney: Known intrasubstance parenchymal abscess in the midbody in lower pole of the left kidney, now approximated by pigtail catheter. The fluid collection immediately inferior to the left kidney measures about 3.7 by 3.7 by 1.9 cm and may not be drained by the catheter. With marked inflammatory changes in the anterior para and perinephric renal spaces on the left and the pole left kidney seems edematous and somewhat enlarged-especially the lower pole. Likely postprocedural gas about the catheter ABDOMEN AND PELVIS Bowel: No small bowel or colonic dilation or adjacent inflammation. No appendiceal dilation or inflammation. Vessels: No significant abnormality in the aorta or its proximal branches. No significant abnormality in the portal veins, mesenteric veins or systemic veins. Lymph Nodes: Marked periaortic retroperitoneal lymphadenopathy and marked confluent lymphadenopathy at the gerson hepatitis. Compared to the prior examination, these findings are preexistent, and stable to technique. No free air. No ascites. PELVIS Genitourinary: Distal ureters and bladder appear normal. No pelvic masses. BODY WALL Soft Tissues: No bowel or inflamed fat containing hernia, mass or hemorrhage. Bones: Focal disc endplate disease at L4-5 with osteophytosis, subchondral sclerosis and cystic changes Impression 1. Pigtail catheter now centrally located in the central phlegmonous section of the mid lower pole of the left kidney Marked local inflammatory changes and edema. Preexistent and within the spectrum of expected evolving findings with severe renal infection and intervention 2. Pimento like perinephric inflammatory fluid collection inferior to the lower pole of the left kidney. An appreciable collection of stable infected fluid, not seemingly drained by the catheter. 3. Marked but stable retroperitoneal lymphadenopathy and marked confluent lymphadenopathy in the gerson hepatitis. 4. Periportal edema and hepatosplenomegaly Signed by: Liza Alex, Maverick Sign Date/Time: 04/20/2019 1:[address] Guided Drain Abscess Renal Narrative CT GUIDED DRAINAGE LEFT PARARENAL ABSCESS CLINICAL INFORMATION: Residual undrained left renal collection PROCEDURE: Prior to the procedure, risks and benefits were explained to the patient and informed written and verbal consent obtained. Patient was placed on the CT gantry and initial localizing scans were performed. Using lidocaine for local anesthesia and intravenous sedation, the region is punctured under CT guidance. Aspiration was performed yielding 8 mL of hemorrhagic and purulent fluid. The specimen was submitted to the laboratory for Gram stain and culture. An 0.35 guide wire is placed into the collection and the tract dilated up to 10 Spanish. A 10 Spanish catheter is then placed over the wire. Patient tolerated the procedure well. No immediate complications. Conscious sedation was administered. The nurse administered for 47 minutes, 200 mcg fentanyl and 4 mg Versed used for sedation. The patient was monitored by the nurse during the examination and monitored blood pressure, heart rate, and pulse oximeter. Physician intraservice time of 47 minutes. Estimated Blood Loss: Less than 10 cc's. At least one of the following CT dose optimization techniques were used: Automated exposure control; Adjustment of mA and/or kV according to patient size; Use of iterative reconstruction technique. Impression Uncomplicated drainage of left pararenal abscess. 8 mL of hemorrhagic and purulent fluid was aspirated. A 10 Spanish locking pigtail catheter is placed. Signed by: Liza Zeng, Pushpender Sign Date/Time: 04/24/2019 2:56 PM Imaging: Imaging Reviewed. PROBLEM LIST Principal Problem: Kidney, perinephric abscess Active Problems: Pyelonephritis Tobacco abuse IV drug user Resolved Problems: * No resolved hospital problems. * ASSESSMENT & PLAN Sepsis secondary to Left pyelonephritis, renal abscess (MRSA) S/p placement of drain 04/09/19, then again 04/16/2019 due to persistent numerous renal abs cesses -Repeat CT scan 04/20/2019, improvement though appears to have an abscess not drained by maria esther morin -Dr. Morataya/IR --repeat CT-guided renal abscess 04/24/19. -MRSA -PICC line placed 04/19/2019 -Patient will require 4 weeks of IV daptomycin, till May 24 -Bag Turner involved looking at tentative placement? -Patient agreeable to plan of care -Stable -prn Ocycodone for pain Nicontine use Refuses nicotine patch History of methamphetamine abuse -Patient reports history of IV methamphetamine abuse, indicates that he last used approxima tely 1 week prior to admission, indicates he had been residing in [place] and had moved [facility] to [place] to be with his mother, with intentions of stopping his drug. He confirms wantin g to stop and agrees to continuing hospitalization Disposition: Code Status: Full Code Milagro Zambrano MD 04/27/2019 5:49 Radha Mckenna RN - 04/26/2019 5:29 PM PDTThis AM when drains flushed per orders patient stated, "do aurelia t again and see what happens" and punched the arm rail of the bed. The patient expressed aurelia t the drains hurt to be flushed. This RN and manager labor relations RN reminded the patient how importa nt it is to flush the tubes. PRN pain medication given per orders. Patient cooperative and c nelia throughout the rest of the shift. End of shift review completed. Radha Fairchild RN Milagro Swenson MD - 04/26/2019 6:01 AM PDT . [facility] Service: Hospitalist Progress Note Hospital Day: LOS: 15 days SUBJECTIVE Patient Summary: From HPI Transfer note Dr. Do:" Mr. Conrad is a 34 yr old man with chronic HCV infection presented at [facility] ED for 1 week for constant LLQ pain that radiates to the back and intermittent feverrs. He had leuko cytosis. CT abdomen showed findings concerning for left pyelonephritis with developing intr arenal abscess; large loculation with perinephric inflammatory changes consistent with an ab scess. Patient was transferred here for possible IR drainage. Patient underwent IR placement of drainage on 04/12/19. 20cc of purulent drainage was obtain. Drained fluid was + MRSA. I D was on board and has been managing antibiotic. " Events Overnight: Dr. Tanner 04/24/19 34-year-old male history of hepatitis C, IV methamphetamine drug abuse , admitted on 2018 with left flank pain, CT scan showed 6.3 cm renal abscesses, interventional radiology c onsulted, CT-guided drainage , cultures growing MRSA, repeat CT scan, required repeat CT-luis ded drainage, left perinephritic tube drained approximately 30 mL's serous fluid. 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 Morataya notified, patient will be placed n.p.o. after midnight, repeat CT-guided drainage for tomor row. Otherwise patient continues to do well is been calm cooperative, spends most of the day sle eping, watching TV and eating Afebrile Minimal back pain 04/26/19 The patient Complains of back pain and is sleeping on the couch. Remains afebrile . Scheduled Medications DAPTOmycin 6 mg/kg Intravenous Q24H enoxaparin 40 mg Subcutaneous Daily nicotine 1 patch Transdermal Daily sodium chloride 0.9% injection 20 mL Intracatheter 2 times per day PRN Medications acetaminophen, HYDROcodone-acetaminophen, ibuprofen, LORazepam, ondansetron, polyethylene g lycol, Potassium replacement - NON ICU AND Potassium AND potassium chloride AND potassium chloride OBJECTIVE Vital Signs: BP 142/72 | Pulse 100 | Temp 37 C (98.6 F) (Oral) | Resp 18 | Ht 1.88 m (6' 2") | Wt 93.5 kg (206 lb 2.1 oz) | SpO2 98% | BMI 26.47 kg/m Patient Vitals for the past 24 hrs: BP Temp Temp src Pulse Resp SpO2 Weight 04/26/19 0400 142/72 37 C (98.6 F) Oral 100 18 98 % 93.5 kg (206 lb 2.1 oz) 04/25/19 2300 126/71 36.6 C (97.9 F) Oral 80 16 98 % 04/25/19 1900 130/72 37.2 C (98.9 F) Oral 81 15 98 % 04/25/19 1611 128/74 36.8 C (98.2 F) Axillary 85 22 98 % 04/25/19 1217 122/72 36.4 C (97.6 F) Oral 79 24 95 % 04/25/19 0757 143/71 37.6 C (99.7 F) Axillary 89 22 100 % 14:LAST:1 91.5 kg (04/12/19 0428) Last: 93.5 kg (04/26/19 0400) Difference: 2kg Weight change: 0.1 kg (3.5 oz) Intake/Output Summary (Last 24 hours) at 04/26/2019 0601 Last data filed at 04/26/2019 0400 Gross per 24 hour Intake 1340 ml Output 20 ml Net 1320 ml Body mass index is 26.47 kg/m. Physical Exam Constitutional: He is oriented to person, place, and time. He appears well-developed and we ll-nourished. HENT: Head: Normocephalic and atraumatic. Eyes: Pupils are equal, round, and reactive to light. EOM are normal. Cardiovascular: Normal rate and regular rhythm. Pulmonary/Chest: Effort normal and breath sounds normal. No stridor. No respiratory distres s. Abdominal: Soft. There is no tenderness. Musculoskeletal: Normal range of motion. Neurological: He is alert and oriented to person, place, and time. No cranial nerve deficit . Skin: Skin is warm and dry. No erythema. DATA No results for input(s): WBC, HGB, HCT, PLT, MCV in the last 72 hours. Invalid input(s): BANDSPCT Recent Labs Lab 04/26/19 0406 04/25/19 0436 04/23/19 0526 K 3.8 4.1 4.1 No results for input(s): GLU in the last 72 hours. No results for input(s): TROPONIN, BNP in the last 72 hours. Recent Labs Lab 04/24/19 0355 INR 1.0 PTT 33* No results for input(s): IRON, TIBC, PCTSAT, FERRITIN, TSH, [id number], FOLATE in the last 168 hours. No results for input(s): LACTATE, PROCALCITONI, CRP, ESR in the last 168 hours. No results for input(s): AMYLASE, LIPASE in the last 168 hours. No results for input(s): TRIG, CHOL, HDL, LDL in the last 168 hours. No results for input(s): AMMONIA in the last 168 hours. Recent Results (from the past 360 hour(s)) CT Guided Drain Abscess Narrative CT GUIDED LEFT PERINEPHRIC ABSCESS DRAINAGE CLINICAL INFORMATION: 34-year-old male with left perinephric abscess. COMPARISON: None. PROCEDURE: The risks, benefits and alternatives were discussed with the patient; consent was obtained and placed in the patient's chart. The risks included but were not limited to bleeding, infection, non target organ injury. The patient was placed in the CT scanner and imaging was obtained through the abdomen and pelvis. A reproducible target was demonstrated. The skin overlying the site of interest was localized and marked. The skin was sterilely prepped and draped in the usual fashion. Local lidocaine was administered in the skin and underlying tissues, and a tiny dermatotomy was made. Under CT guidance, a 18 gauge needle system was used to access the target. A wire was positioned through the needle system into the fluid collection. Serial dilatation was performed to the appropriate level and a 10 Spanish multipurpose drainage catheter was placed and secured to the skin under CT guidance. The patient tolerated the procedure well without complication. Conscious sedation was administered. The nurse administered fentanyl and Versed medications during the examination and monitored blood pressure, heart rate, and pulse oximeter. Physician intraservice time of 30 minutes. At least one of the following CT dose optimization techniques were used: Automated exposure control; Adjustment of mA and/or kV according to patient size; Use of iterative reconstruction technique. FINDINGS: CT identified the left perinephric abscess, which was selected for drainage. Intra procedural imaging confirmed appropriate catheter placement. Post procedure imaging showed no evidence for complication. Impression Successful CT-guided left perinephric abscess drainage. Signed by: Liza Morataya David Sign Date/Time: 04/13/2019 6:[address] Abdomen w Contrast Narrative CT ABDOMEN WITH CONTRAST CLINICAL INFORMATION: Follow-up renal abscess drainage. COMPARISON: CT GUIDED DRAIN ABSCESS (04/12/2019); PROCEDURE: Axial images through the abdomen after the administration of 100 mL Omnipaque 350 intravenous contrast. Multiplanar reconstructions. At least one of the following CT dose optimization techniques were used: Automated exposure control; Adjustment of mA and/or kV according to patient size; Use of iterative reconstruction technique. FINDINGS: LUNG BASES: No significant pulmonary abnormality. No pleural effusion or pneumothorax. ABDOMEN Liver and Biliary: Increased craniocaudal length of liver measuring 24.2 cm. Mild periportal edema. The gallbladder is partially distended. No biliary dilation. Pancreas, Spleen and Adrenals: Enlarged spleen measuring approximately 16.5 cm in craniocaudal length. Normal pancreas and both adrenals. Kidneys: The right kidney is normal in size and enhancement pattern. Enlarged edematous left kidney with pararenal edema. There is decreased enhancement in lower pole of the left kidney with a heterogeneous attenuation area measuring 6.3 x 4.7 x 4.8 cm, image 88/series 3, image 49/series 6. Additional smaller intrarenal area of heterogeneous attenuation in interpolar left kidney measuring 3.2 x 3.1 x 2.9 cm. There is marked infiltration of pararenal fat with thickening of anterior and posterior pararenal fascia. Percutaneous pigtail catheter in-situ in left posterior pararenal space. Bowel: No small bowel or colonic dilation or adjacent inflammation. Vessels: No significant abnormality in the aorta or its proximal branches. No significant abnormality in the portal veins, mesenteric veins or systemic veins. Lymph Nodes: Multiple enlarged retroperitoneal lymph nodes. The index left para-aortic lymph node measuring 1.4 cm, image 84/series 3, nonspecific, probably reactive. The index inter aortocaval lymph node measuring 1.6 cm, image 95/series 3. Peritoneum and Retroperitoneum: Small amount of fluid in left paracolic gutter. Retroperitoneal left pararenal fat infiltration with thickening of anterior and posterior pararenal fascia. No pneumoperitoneum. BODY WALL Soft Tissues: No bowel or inflamed fat containing hernia, mass or hemorrhage. Mildly elevated right dome of the diaphragm. Mild subcutaneous edema of the body wall. Small fat containing paraumbilical hernia. Bones: No acute fracture or vertebral end plate destruction. No lytic or blastic lesion. Moderate degenerative disc disease at L4-L5 and L5-S1. Multiple Schmorl nodes at L4-L5. Impression *Complicated acute left pyelonephritis with intrarenal abscess/phlegmon in lower pole of the left kidney measuring 6.3 x 4.7 x 4.8 cm, causing renal capsular bulge. *Additional area of focal pyelonephritis/small organized abscess or phlegmon in interpolar left kidney measuring 3.2 x 3.1 x 2.9 cm. Adjacent pigtail catheter in-situ in left posterior pararenal space. Interval decrease in size of the left pararenal abscess, status post percutaneous drainage. *Small amount of free fluid in left paracolic gutter. *Multiple enlarged retroperitoneal lymph nodes, nonspecific, probably reactive. *Hepatosplenomegaly. *Additional findings as detailed above. Signed by: Liza Zeng, Pushpender Sign Date/Time: 04/15/2019 12:[address] Guided Drain Abscess Narrative CT GUIDED LEFT KIDNEY ABSCESS DRAINAGE CLINICAL INFORMATION: 34-year-old male with left renal abscess and perinephric abscess status post perinephric abscess drainage. Patient continues to have leukocytosis and intermittent fevers and drainage of the left intraparenchymal renal abscess is requested. COMPARISON: None. PROCEDURE: The risks, benefits and alternatives were discussed with the patient; consent was obtained and placed in the patient's chart. The risks included but were not limited to bleeding, infection, non target organ injury. The patient was placed in the CT scanner and imaging was obtained through the abdomen. A reproducible target was demonstrated. The skin overlying the site of interest was localized and marked. The skin was sterilely prepped and draped in the usual fashion. Local lidocaine was administered in the skin and underlying tissues. A wire was passed through the existing catheter into the perinephric abscess. This collection was in line with the intraparenchymal renal abscess. A new catheter with metal stiffener was passed over the wire, the wire were removed, and stylette introduced into the metal stiffener. The catheter was advanced as a unit into the intraparenchymal renal abscess. The inner stylet was removed, a wire was passed into the intra parenchymal abscess, and images acquired confirming positioning. Next, the metal stiffener was removed and the catheter advanced and formed over the wire. The position was confirmed with CT and the catheter was secured to the skin. The patient tolerated the procedure well without complication. Conscious sedation was administered. The nurse administered fentanyl medications during the examination and monitored blood pressure, heart rate, and pulse oximeter. Physician intraservice time of 30 minutes. At least one of the following CT dose optimization techniques were used: Automated exposure control; Adjustment of mA and/or kV according to patient size; Use of iterative reconstruction technique. FINDINGS: CT identified the intraparenchymal left renal abscess which was selected for drainage. Intra procedural imaging confirmed appropriate catheter placement. Post procedure imaging showed no evidence for complication. Impression Successful CT-guided left intraparenchymal renal abscess drainage. Signed by: Liza Morataya David Sign Date/Time: 04/17/2019 6:[address] Abdomen Pelvis w Contrast Narrative CT ABDOMEN AND PELVIS WITH CONTRAST CLINICAL INFORMATION: Abdominal infection suspected. follow-up renal and perirenal abscesses, r/o abdominal abscess. COMPARISON: CT GUIDED DRAIN ABSCESS (04/16/2019); CT ABDOMEN W CONTRAST (04/15/2019); CT GUIDED DRAIN ABSCESS (04/12/2019); PROCEDURE: Axial images through the abdomen and pelvis after the administration of 100 ml Omnipaque 350 intravenous contrast. Multiplanar reconstructions. At least one of the following CT dose optimization techniques were used: Automated exposure control; Adjustment of mA and/or kV according to patient size; Use of iterative reconstruction technique. FINDINGS: LUNG BASES: No significant pulmonary abnormality. No pleural effusion or pneumothorax. Some asymmetric scarring in the right lung base. Stable. ABDOMEN Liver and Biliary: No solid hepatic lesion, but there is diffuse periportal edema. No cirrhosis. Vascular enhancement. Measures 24 cm in the superior inferior dimension at the level of the midclavicular line. Gallbladder not distended, no gallstones or pericholecystic fluid. Pancreas: Normal to technique without peripancreatic fluid collection or intrinsic lesion Spleen: Marked splenomegaly but without nearby fluid or adjacent lesion. Measures about 15 x 8 x 16 cm. Normal adrenals Kidneys: Structurally normal right kidney. Left kidney: Known intrasubstance parenchymal abscess in the midbody in lower pole of the left kidney, now approximated by pigtail catheter. The fluid collection immediately inferior to the left kidney measures about 3.7 by 3.7 by 1.9 cm and may not be drained by the catheter. With marked inflammatory changes in the anterior para and perinephric renal spaces on the left and the pole left kidney seems edematous and somewhat enlarged-especially the lower pole. Likely postprocedural gas about the catheter ABDOMEN AND PELVIS Bowel: No small bowel or colonic dilation or adjacent inflammation. No appendiceal dilation or inflammation. Vessels: No significant abnormality in the aorta or its proximal branches. No significant abnormality in the portal veins, mesenteric veins or systemic veins. Lymph Nodes: Marked periaortic retroperitoneal lymphadenopathy and marked confluent lymphadenopathy at the gerson hepatitis. Compared to the prior examination, these findings are preexistent, and stable to technique. No free air. No ascites. PELVIS Genitourinary: Distal ureters and bladder appear normal. No pelvic masses. BODY WALL Soft Tissues: No bowel or inflamed fat containing hernia, mass or hemorrhage. Bones: Focal disc endplate disease at L4-5 with osteophytosis, subchondral sclerosis and cystic changes Impression 1. Pigtail catheter now centrally located in the central phlegmonous section of the mid lower pole of the left kidney Marked local inflammatory changes and edema. Preexistent and within the spectrum of expected evolving findings with severe renal infection and intervention 2. Pimento like perinephric inflammatory fluid collection inferior to the lower pole of the left kidney. An appreciable collection of stable infected fluid, not seemingly drained by the catheter. 3. Marked but stable retroperitoneal lymphadenopathy and marked confluent lymphadenopathy in the gerson hepatitis. 4. Periportal edema and hepatosplenomegaly Signed by: Liza Alex Timothy Sign Date/Time: 04/20/2019 1:[address] Guided Drain Abscess Renal Narrative CT GUIDED DRAINAGE LEFT PARARENAL ABSCESS CLINICAL INFORMATION: Residual undrained left renal collection PROCEDURE: Prior to the procedure, risks and benefits were explained to the patient and informed written and verbal consent obtained. Patient was placed on the CT gantry and initial localizing scans were performed. Using lidocaine for local anesthesia and intravenous sedation, the region is punctured under CT guidance. Aspiration was performed yielding 8 mL of hemorrhagic and purulent fluid. The specimen was submitted to the laboratory for Gram stain and culture. An 0.35 guide wire is placed into the collection and the tract dilated up to 10 Spanish. A 10 Spanish catheter is then placed over the wire. Patient tolerated the procedure well. No immediate complications. Conscious sedation was administered. The nurse administered for 47 minutes, 200 mcg fentanyl and 4 mg Versed used for sedation. The patient was monitored by the nurse during the examination and monitored blood pressure, heart rate, and pulse oximeter. Physician intraservice time of 47 minutes. Estimated Blood Loss: Less than 10 cc's. At least one of the following CT dose optimization techniques were used: Automated exposure control; Adjustment of mA and/or kV according to patient size; Use of iterative reconstruction technique. Impression Uncomplicated drainage of left pararenal abscess. 8 mL of hemorrhagic and purulent fluid was aspirated. A 10 Spanish locking pigtail catheter is placed. Signed by: Liza Zeng Pushpender Sign Date/Time: 04/24/2019 2:56 PM Imaging: Imaging Reviewed. PROBLEM LIST Principal Problem: Kidney, perinephric abscess Active Problems: Pyelonephritis Tobacco abuse IV drug user Resolved Problems: * No resolved hospital problems. * ASSESSMENT & PLAN Sepsis secondary to Left pyelonephritis, renal abscess (MRSA) S/p placement of drain 04/09/19, then again 04/16/2019 due to persistent numerous renal abs cesses -Repeat CT scan 04/20/2019, improvement though appears to have an abscess not drained by maria esther morin -Dr. Morataya/IR notified, patient to be made n.p.o. for repeat CT-guided renal abscess 1 . -MRSA -PICC line placed 04/19/2019 -Patient will require 4 weeks of IV daptomycin, till May 24 -Bag Turner involved looking at tentative placement? -Patient agreeable to plan of care -Stable -prn Percocets for pain -Case management will check to see of patient can receive his IV abx as outpatient with diana day injection visits at hospital. He will not have ongoing IV. Nicontine use Refuses nicotine patch History of methamphetamine abuse -Patient reports history of IV methamphetamine abuse, indicates that he last used approxima tely 1 week prior to admission, indicates he had been residing in [place] and had moved u p to [place] to be with his mother, with intentions of stopping his drug. He confirms wantin g to stop and agrees to continuing hospitalization Disposition: Code Status: Full Code Milagro Zambrano MD 04/26/2019 6:01 uan Manuel, Milagro Alberts MD - 04/25/2019 11:56 AM PDT [facility] Service: Hospitalist Progress Note Hospital Day: LOS: 14 days SUBJECTIVE Patient Summary: From HPI Transfer note Dr. Do:" Mr. Conrad is a 34 yr old man with chronic HCV infection presented at [facility] for 1 week for constant LLQ pain that radiates to the back and intermittent feverrs. He had leuko cytosis. CT abdomen showed findings concerning for left pyelonephritis with developing intr arenal abscess; large loculation with perinephric inflammatory changes consistent with an ab scess. Patient was transferred here for possible IR drainage. Patient underwent IR placement of drainage on 04/12/19. 20cc of purulent drainage was obtain. Drained fluid was + MRSA. I D was on board and has been managing antibiotic. " Events Overnight: Dr. Tanner 04/24/19 34-year-old male history of hepatitis C, IV methamphetamine drug abuse , admitted on 2018 with left flank pain, CT scan showed 6.3 cm renal abscesses, interventional radiology c onsulted, CT-guided drainage , cultures growing MRSA, repeat CT scan, required repeat CT-luis ded drainage, left perinephritic tube drained approximately 30 mL's serous fluid. 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 Morataya notified, patient will be placed n.p.o. after midnight, repeat CT-guided drainage for tomor row. Otherwise patient continues to do well is been calm cooperative, spends most of the day sle eping, watching TV and eating Afebrile Minimal back pain The patient appears comfortable. He remains cooperative, but was despondent about his hosp ital stay. Complains of back pain. Remains afebrile. Scheduled Medications DAPTOmycin 6 mg/kg Intravenous Q24H enoxaparin 40 mg Subcutaneous Daily nicotine 1 patch Transdermal Daily sodium chloride 0.9% injection 20 mL Intracatheter 2 times per day PRN Medications acetaminophen, HYDROcodone-acetaminophen, ibuprofen, LORazepam, ondansetron, polyethylene g lycol, Potassium replacement - NON ICU AND Potassium AND potassium chloride AND potassium chloride OBJECTIVE Vital Signs: BP 143/71 | Pulse 89 | Temp 37.6 C (99.7 F) (Axillary) | Resp 22 | Ht 1.88 m (6' 2" ) | Wt 93.4 kg (205 lb 14.6 oz) | SpO2 100% | BMI 26.44 kg/m Patient Vitals for the past 24 hrs: BP Temp Temp src Pulse Resp SpO2 Weight 04/25/19 0757 143/71 37.6 C (99.7 F) Axillary 89 22 100 % 04/25/19 0400 136/68 36.7 C (98.1 F) Oral 82 16 98 % 93.4 kg (205 lb 14.6 oz) 04/24/19 2300 167/78 36.9 C (98.4 F) Oral 82 18 98 % 04/24/191999 131/82 36.9 C (98.4 F) Oral 86 20 98 % 04/24/19 1628 131/79 36.8 C (98.3 F) Oral 81 19 99 % 04/24/19 1414 20 04/24/19 1413 72 97 % 04/24/19 1412 70 97 % 04/24/19 1411 127/70 70 97 % 04/24/19 1410 72 98 % 04/24/19 1408 20 04/24/19 1408 124/73 70 99 % 04/24/19 1407 78 97 % 04/24/19 1406 76 97 % 04/24/19 1405 125/67 76 98 % 04/24/19 1404 72 98 % 04/24/19 1403 72 97 % 04/24/19 1402 128/69 74 98 % 04/24/19 1401 80 99 % 04/24/19 1400 72 98 % 04/24/19 1359 18 04/24/19 1359 127/66 72 98 % 04/24/19 1358 76 98 % 04/24/19 1357 74 98 % 04/24/19 1356 128/70 76 98 % 04/24/19 1355 76 99 % 04/24/19 1354 72 99 % 04/24/19 1353 127/68 74 98 % 04/24/19 1352 74 98 % 04/24/19 1351 72 97 % 04/24/19 1350 130/66 72 97 % 04/24/19 1349 14 04/24/19 1349 72 97 % 04/24/19 1348 72 99 % 04/24/19 1347 133/70 04/24/19 1347 74 99 % 04/24/19 1346 76 99 % 04/24/19 1345 74 99 % 04/24/19 1344 128/74 74 20 100 % 04/24/19 1344 128/68 70 99 % 04/24/19 1343 74 99 % 04/24/19 1342 72 100 % 04/24/19 1341 127/69 72 100 % 04/24/19 1340 70 100 % 04/24/19 1339 70 100 % 04/24/19 1338 139/77 72 100 % 04/24/19 1337 72 100 % 04/24/19 1336 72 100 % 04/24/19 1335 130/74 79 17 100 % 04/24/19 1335 128/74 72 100 % 04/24/19 1334 70 100 % 04/24/19 1333 72 100 % 04/24/19 1332 130/74 70 100 % 04/24/19 1331 74 100 % 04/24/19 1330 128/75 72 25 100 % 04/24/19 1329 128/75 04/24/19 1329 72 100 % 04/24/19 1328 72 100 % 04/24/19 1327 132/78 78 24 100 % 04/24/19 1327 70 100 % 14:LAST:1 91.5 kg (04/12/19 0428) Last: 93.4 kg (04/25/19 0400) Difference: 1.9kg Weight change: 0.412 kg (14.6 oz) Intake/Output Summary (Last 24 hours) at 04/25/2019 1156 Last data filed at 04/25/2019 0801 Gross per 24 hour Intake 1010 ml Output 40 ml Net 970 ml Body mass index is 26.44 kg/m. Physical Exam Constitutional: He is oriented to person, place, and time. He appears well-developed and we ll-nourished. HENT: Head: Normocephalic and atraumatic. Eyes: Pupils are equal, round, and reactive to light. EOM are normal. Cardiovascular: Normal rate and regular rhythm. Pulmonary/Chest: Effort normal and breath sounds normal. No stridor. No respiratory distres s. Abdominal: Soft. Bowel sounds are normal. He exhibits no distension. There is no tenderness . Musculoskeletal: Normal range of motion. Neurological: He is alert and oriented to person, place, and time. No cranial nerve deficit . Skin: Skin is warm and dry. No erythema. DATA No results for input(s): WBC, HGB, HCT, PLT, MCV in the last 72 hours. Invalid input(s): BANDSPCT Recent Labs Lab 04/25/19 0436 04/23/19 0526 04/22/19 0557 K 4.1 4.1 4.1 No results for input(s): GLU in the last 72 hours. No results for input(s): TROPONIN, BNP in the last 72 hours. Recent Labs Lab 04/24/19 0355 INR 1.0 PTT 33* No results for input(s): IRON, TIBC, PCTSAT, FERRITIN, TSH, [id number], FOLATE in the last 168 hours. No results for input(s): LACTATE, PROCALCITONI, CRP, ESR in the last 168 hours. No results for input(s): AMYLASE, LIPASE in the last 168 hours. No results for input(s): TRIG, CHOL, HDL, LDL in the last 168 hours. No results for input(s): AMMONIA in the last 168 hours. Recent Results (from the past 360 hour(s)) CT Guided Drain Abscess Narrative CT GUIDED LEFT PERINEPHRIC ABSCESS DRAINAGE CLINICAL INFORMATION: 34-year-old male with left perinephric abscess. COMPARISON: None. PROCEDURE: The risks, benefits and alternatives were discussed with the patient; consent was obtained and placed in the patient's chart. The risks included but were not limited to bleeding, infection, non target organ injury. The patient was placed in the CT scanner and imaging was obtained through the abdomen and pelvis. A reproducible target was demonstrated. The skin overlying the site of interest was localized and marked. The skin was sterilely prepped and draped in the usual fashion. Local lidocaine was administered in the skin and underlying tissues, and a tiny dermatotomy was made. Under CT guidance, a 18 gauge needle system was used to access the target. A wire was positioned through the needle system into the fluid collection. Serial dilatation was performed to the appropriate level and a 10 Spanish multipurpose drainage catheter was placed and secured to the skin under CT guidance. The patient tolerated the procedure well without complication. Conscious sedation was administered. The nurse administered fentanyl and Versed medications during the examination and monitored blood pressure, heart rate, and pulse oximeter. Physician intraservice time of 30 minutes. At least one of the following CT dose optimization techniques were used: Automated exposure control; Adjustment of mA and/or kV according to patient size; Use of iterative reconstruction technique. FINDINGS: CT identified the left perinephric abscess, which was selected for drainage. Intra procedural imaging confirmed appropriate catheter placement. Post procedure imaging showed no evidence for complication. Impression Successful CT-guided left perinephric abscess drainage. Signed by: Liza Morataya David Sign Date/Time: 04/13/2019 6:[address] Abdomen w Contrast Narrative CT ABDOMEN WITH CONTRAST CLINICAL INFORMATION: Follow-up renal abscess drainage. COMPARISON: CT GUIDED DRAIN ABSCESS (04/12/2019); PROCEDURE: Axial images through the abdomen after the administration of 100 mL Omnipaque 350 intravenous contrast. Multiplanar reconstructions. At least one of the following CT dose optimization techniques were used: Automated exposure control; Adjustment of mA and/or kV according to patient size; Use of iterative reconstruction technique. FINDINGS: LUNG BASES: No significant pulmonary abnormality. No pleural effusion or pneumothorax. ABDOMEN Liver and Biliary: Increased craniocaudal length of liver measuring 24.2 cm. Mild periportal edema. The gallbladder is partially distended. No biliary dilation. Pancreas, Spleen and Adrenals: Enlarged spleen measuring approximately 16.5 cm in craniocaudal length. Normal pancreas and both adrenals. Kidneys: The right kidney is normal in size and enhancement pattern. Enlarged edematous left kidney with pararenal edema. There is decreased enhancement in lower pole of the left kidney with a heterogeneous attenuation area measuring 6.3 x 4.7 x 4.8 cm, image 88/series 3, image 49/series 6. Additional smaller intrarenal area of heterogeneous attenuation in interpolar left kidney measuring 3.2 x 3.1 x 2.9 cm. There is marked infiltration of pararenal fat with thickening of anterior and posterior pararenal fascia. Percutaneous pigtail catheter in-situ in left posterior pararenal space. Bowel: No small bowel or colonic dilation or adjacent inflammation. Vessels: No significant abnormality in the aorta or its proximal branches. No significant abnormality in the portal veins, mesenteric veins or systemic veins. Lymph Nodes: Multiple enlarged retroperitoneal lymph nodes. The index left para-aortic lymph node measuring 1.4 cm, image 84/series 3, nonspecific, probably reactive. The index inter aortocaval lymph node measuring 1.6 cm, image 95/series 3. Peritoneum and Retroperitoneum: Small amount of fluid in left paracolic gutter. Retroperitoneal left pararenal fat infiltration with thickening of anterior and posterior pararenal fascia. No pneumoperitoneum. BODY WALL Soft Tissues: No bowel or inflamed fat containing hernia, mass or hemorrhage. Mildly elevated right dome of the diaphragm. Mild subcutaneous edema of the body wall. Small fat containing paraumbilical hernia. Bones: No acute fracture or vertebral end plate destruction. No lytic or blastic lesion. Moderate degenerative disc disease at L4-L5 and L5-S1. Multiple Schmorl nodes at L4-L5. Impression *Complicated acute left pyelonephritis with intrarenal abscess/phlegmon in lower pole of the left kidney measuring 6.3 x 4.7 x 4.8 cm, causing renal capsular bulge. *Additional area of focal pyelonephritis/small organized abscess or phlegmon in interpolar left kidney measuring 3.2 x 3.1 x 2.9 cm. Adjacent pigtail catheter in-situ in left posterior pararenal space. Interval decrease in size of the left pararenal abscess, status post percutaneous drainage. *Small amount of free fluid in left paracolic gutter. *Multiple enlarged retroperitoneal lymph nodes, nonspecific, probably reactive. *Hepatosplenomegaly. *Additional findings as detailed above. Signed by: Liza Zeng, Pushpender Sign Date/Time: 04/15/2019 12:[address] Guided Drain Abscess Narrative CT GUIDED LEFT KIDNEY ABSCESS DRAINAGE CLINICAL INFORMATION: 34-year-old male with left renal abscess and perinephric abscess status post perinephric abscess drainage. Patient continues to have leukocytosis and intermittent fevers and drainage of the left intraparenchymal renal abscess is requested. COMPARISON: None. PROCEDURE: The risks, benefits and alternatives were discussed with the patient; consent was obtained and placed in the patient's chart. The risks included but were not limited to bleeding, infection, non target organ injury. The patient was placed in the CT scanner and imaging was obtained through the abdomen. A reproducible target was demonstrated. The skin overlying the site of interest was localized and marked. The skin was sterilely prepped and draped in the usual fashion. Local lidocaine was administered in the skin and underlying tissues. A wire was passed through the existing catheter into the perinephric abscess. This collection was in line with the intraparenchymal renal abscess. A new catheter with metal stiffener was passed over the wire, the wire were removed, and stylette introduced into the metal stiffener. The catheter was advanced as a unit into the intraparenchymal renal abscess. The inner stylet was removed, a wire was passed into the intra parenchymal abscess, and images acquired confirming positioning. Next, the metal stiffener was removed and the catheter advanced and formed over the wire. The position was confirmed with CT and the catheter was secured to the skin. The patient tolerated the procedure well without complication. Conscious sedation was administered. The nurse administered fentanyl medications during the examination and monitored blood pressure, heart rate, and pulse oximeter. Physician intraservice time of 30 minutes. At least one of the following CT dose optimization techniques were used: Automated exposure control; Adjustment of mA and/or kV according to patient size; Use of iterative reconstruction technique. FINDINGS: CT identified the intraparenchymal left renal abscess which was selected for drainage. Intra procedural imaging confirmed appropriate catheter placement. Post procedure imaging showed no evidence for complication. Impression Successful CT-guided left intraparenchymal renal abscess drainage. Signed by: Liza Morataya David Sign Date/Time: 04/17/2019 6:[address] Abdomen Pelvis w Contrast Narrative CT ABDOMEN AND PELVIS WITH CONTRAST CLINICAL INFORMATION: Abdominal infection suspected. follow-up renal and perirenal abscesses, r/o abdominal abscess. COMPARISON: CT GUIDED DRAIN ABSCESS (04/16/2019); CT ABDOMEN W CONTRAST (04/15/2019); CT GUIDED DRAIN ABSCESS (04/12/2019); PROCEDURE: Axial images through the abdomen and pelvis after the administration of 100 ml Omnipaque 350 intravenous contrast. Multiplanar reconstructions. At least one of the following CT dose optimization techniques were used: Automated exposure control; Adjustment of mA and/or kV according to patient size; Use of iterative reconstruction technique. FINDINGS: LUNG BASES: No significant pulmonary abnormality. No pleural effusion or pneumothorax. Some asymmetric scarring in the right lung base. Stable. ABDOMEN Liver and Biliary: No solid hepatic lesion, but there is diffuse periportal edema. No cirrhosis. Vascular enhancement. Measures 24 cm in the superior inferior dimension at the level of the midclavicular line. Gallbladder not distended, no gallstones or pericholecystic fluid. Pancreas: Normal to technique without peripancreatic fluid collection or intrinsic lesion Spleen: Marked splenomegaly but without nearby fluid or adjacent lesion. Measures about 15 x 8 x 16 cm. Normal adrenals Kidneys: Structurally normal right kidney. Left kidney: Known intrasubstance parenchymal abscess in the midbody in lower pole of the left kidney, now approximated by pigtail catheter. The fluid collection immediately inferior to the left kidney measures about 3.7 by 3.7 by 1.9 cm and may not be drained by the catheter. With marked inflammatory changes in the anterior para and perinephric renal spaces on the left and the pole left kidney seems edematous and somewhat enlarged-especially the lower pole. Likely postprocedural gas about the catheter ABDOMEN AND PELVIS Bowel: No small bowel or colonic dilation or adjacent inflammation. No appendiceal dilation or inflammation. Vessels: No significant abnormality in the aorta or its proximal branches. No significant abnormality in the portal veins, mesenteric veins or systemic veins. Lymph Nodes: Marked periaortic retroperitoneal lymphadenopathy and marked confluent lymphadenopathy at the gerson hepatitis. Compared to the prior examination, these findings are preexistent, and stable to technique. No free air. No ascites. PELVIS Genitourinary: Distal ureters and bladder appear normal. No pelvic masses. BODY WALL Soft Tissues: No bowel or inflamed fat containing hernia, mass or hemorrhage. Bones: Focal disc endplate disease at L4-5 with osteophytosis, subchondral sclerosis and cystic changes Impression 1. Pigtail catheter now centrally located in the central phlegmonous section of the mid lower pole of the left kidney Marked local inflammatory changes and edema. Preexistent and within the spectrum of expected evolving findings with severe renal infection and intervention 2. Pimento like perinephric inflammatory fluid collection inferior to the lower pole of the left kidney. An appreciable collection of stable infected fluid, not seemingly drained by the catheter. 3. Marked but stable retroperitoneal lymphadenopathy and marked confluent lymphadenopathy in the gerson hepatitis. 4. Periportal edema and hepatosplenomegaly Signed by: Liza Alex Timothy Sign Date/Time: 04/20/2019 1:[address] Guided Drain Abscess Renal Narrative CT GUIDED DRAINAGE LEFT PARARENAL ABSCESS CLINICAL INFORMATION: Residual undrained left renal collection PROCEDURE: Prior to the procedure, risks and benefits were explained to the patient and informed written and verbal consent obtained. Patient was placed on the CT gantry and initial localizing scans were performed. Using lidocaine for local anesthesia and intravenous sedation, the region is punctured under CT guidance. Aspiration was performed yielding 8 mL of hemorrhagic and purulent fluid. The specimen was submitted to the laboratory for Gram stain and culture. An 0.35 guide wire is placed into the collection and the tract dilated up to 10 Spanish. A 10 Spanish catheter is then placed over the wire. Patient tolerated the procedure well. No immediate complications. Conscious sedation was administered. The nurse administered for 47 minutes, 200 mcg fentanyl and 4 mg Versed used for sedation. The patient was monitored by the nurse during the examination and monitored blood pressure, heart rate, and pulse oximeter. Physician intraservice time of 47 minutes. Estimated Blood Loss: Less than 10 cc's. At least one of the following CT dose optimization techniques were used: Automated exposure control; Adjustment of mA and/or kV according to patient size; Use of iterative reconstruction technique. Impression Uncomplicated drainage of left pararenal abscess. 8 mL of hemorrhagic and purulent fluid was aspirated. A 10 Spanish locking pigtail catheter is placed. Signed by: Liza Zeng, Arnold Sign Date/Time: 04/24/2019 2:56 PM Imaging: Imaging Reviewed. PROBLEM LIST Principal Problem: Kidney, perinephric abscess Active Problems: Pyelonephritis Tobacco abuse IV drug user Resolved Problems: * No resolved hospital problems. * ASSESSMENT & PLAN Sepsis secondary to Left pyelonephritis, renal abscess (MRSA) S/p placement of drain 04/09/19, then again 04/16/2019 due to persistent numerous renal abs cesses -Repeat CT scan 04/20/2019, improvement though appears to have an abscess not drained by ca jefferyter -Dr. Morataya/IR notified, patient to be made n.p.o. for repeat CT-guided renal abscess 1 . -MRSA -PICC line placed 04/19/2019 -Patient will require 4 weeks of IV daptomycin, till May 24 -Bag Turner involved looking at tentative placement? -Patient agreeable to plan of care -Stable -prn Percocets for pain -Case management will check to see of patient can receive his IV abx as outpatient with diana day injection visits at hospital. He will not have ongoing IV. Nicontine use Refuses nicotine patch History of methamphetamine abuse -Patient reports history of IV methamphetamine abuse, indicates that he last used approxima tely 1 week prior to admission, indicates he had been residing in [place] and had moved [facility] to [place] to be with his mother, with intentions of stopping his drug. He confirms wantin g to stop and agrees to continuing hospitalization Disposition: Code Status: Full Code Milagro Zambrano MD 04/25/2019 11:56 rsales, Ave mancini MD - 04/25/2019 10:38 AM PDTFormatting of this note might be different from the [facility] Service: Infectious Diseases Progress Note Hospital Day: LOS: 14 days Post-Op Day: * No surgery found * Patient Summary: 34 y.o.malewith significant past medical history of hepatitis Cwho presented on 04/11/2019with left flank and left lower quadrant abdominal pain present for 1 week with intermittent fevers. The patient reports that the symptoms initially began wit h some mild scrotal discomfort and scrotal swelling that he thought was a hernia that would resolve on its own. The patient reported needing to strain in order to urinate on the day of admission, and there were some episodes of pain with urination intermittently. The keyanna ent initially presented to the emergency department at [facility] in [place] where work-up included a CT scan revealing possible left renal abscess although difficult t o exclude malignancy. He was transferred here for further management. The patient was st arted empirically on ceftriaxone. He has undergone CT-guided drain placement, with adequat e drainage of the perinephric fluid collection, and then subsequently had a drain placed in the larger of 2 intraparenchymal renal abscesses. Patient started having fevers again and a repeat CT on 04/20 showed inadequate drainage of the larger collection. CT guided drainage repeated on 04/24. CC: follow up on infection and antibiotic therapy SUBJECTIVE/OVERNIGHT EVENTS The patient remains on treatment with antibiotics. No acute events over last 24 hours are reported. REVIEW OF SYSTEMS: c/o pain from drainage tubes; afebrile over 2 days MEDICATIONS: Reviewed PHYSICAL EXAM Vital Signs: BP 143/71 | Pulse 89 | Temp 37.6 C (99.7 F) (Axillary) | Resp 22 | Ht 1.88 m (6' 2" ) | Wt 93.4 kg (205 lb 14.6 oz) | SpO2 100% | BMI 26.44 kg/m Focused exam shows: General exam: No distress, cooperative with exam. HEENT: sclera non-icteric, no visible oral thrush Flank: 2 drains with bloody/purulent drainage Extremities/MSK: No edema, no joint effusions Skin: No lesions, normal turgor Neurologic: Irritable; angry LABS: MICRO Culture, Blood [[id number]] Collected: 04/16/191217 Order Status: Completed Specimen: Peripheral Blood Updated: 04/22/19519 Special Requests RAC Special Requests Testing [place] [facility] [place] [id number] RESULT NO GROWTH 6 DAYS RESULT Testing performed at [facility], [address] [place] [id number] Comment: Testing performed at [facility], [address] [place] [address] Culture, Blood [[id number]] Collected: 04/16/191217 Order Status: Completed Specimen: Peripheral Blood Updated: 04/22/19519 RESULT NO GROWTH 6 DAYS RESULT Testing performed at [facility], [address] [place] [address] Comment: Testing performed at [address] [address] Culture, Body Fluid Sterile [[id number]] Collected: 04/24/19 1436 Order Status: Canceled Specimen: Body Fluid from Abscess Culture, Body Fluid Sterile [[id number]] (Abnormal) Collected: 04/16/19 1545 Order Status: Completed Updated: 04/20/19 0627 Special Requests LT KIDNEY DRAINAGE Special Requests Testing performed at [facility];[address] [place] [address];[place] [address] Gram Stain Result -- 2+ WBC'S SEEN Gram Stain Result NO ORGANISMS SEEN Gram Stain Result Testing performed at [facility], [address] [place] [address] RESULT --Abnormal 2+ METHICILLIN RESISTANT S. AUREUS (MRSA) Abnormal Susceptibility Staphylococcus aureus,Methicillin resistant (MRSA) (1) Antibiotic Interpretation Vitek 2XL Method Status Clindamycin Sensitive SUSCEPTIBLE PATRICK Final Erythromycin Resistant RESISTANT PATRICK Final Gentamicin Sensitive SUSCEPTIBLE PATRICK Final Levofloxacin Resistant RESISTANT PATRICK Final Moxifloxacin Intermediate INTERMEDIATE PATRICK Final Oxacillin Resistant RESISTANT PATRICK Final Tetracycline Sensitive SUSCEPTIBLE PATRICK Final Trimethoprim + Sulfamethoxazole Sensitive SUSCEPTIBLE PATRICK Final Vancomycin Sensitive SUSCEPTIBLE PATRICK Final Testing performed at [facility], [address] [place] [address], [place] [address] Culture, Body Fluid Sterile [[id number]] Collected: 04/16/19 1600 Order Status: Canceled Specimen: Body Fluid from Abscess Culture, Body Fluid Sterile [[id number]] Order Status: No result Specimen: Body Fluid from Abscess Culture, Body Fluid Sterile [[id number]] Collected: 04/12/19 1003 Order Status: Canceled Specimen: Body Fluid from Abscess Culture, Urine [[id number]] Collected: 04/12/19 0055 Order Status: Completed Specimen: Urine, Clean Catch Updated: 04/13/19 1012 RESULT NO GROWTH RESULT Testing performed at [facility], [address] [place] [address] Comment: Testing performed at [facility], [address] [place] [address] Culture, Wound, Smear, w/Anaerobe [[id number]] Collected: 04/24/19 1440 Order Status: Completed Updated: 04/24/19 2344 Gram Stain Result -- 3+ WBC'S SEEN Gram Stain Result -- 4+ GRAM POSITIVE COCCI Gram Stain Result Testing performed at [facility], [address] [place] [address] RESULT PENDING Comment: Testing performed at [facility], [address] [place] [address] Culture, Wound, Smear, w/Anaerobe [[id number]] (Abnormal) Collected: 04/12/19 0955 Order Status: Completed Updated: 04/16/19 0721 Special Requests LEFT FLANK DRAIN Special Requests Testing performed at [facility] [place] [address];[place] [address] Gram Stain Result -- 2+ WBC'S SEEN Gram Stain Result -- 4+ GRAM POSITIVE COCCI Gram Stain Result Testing performed at [facility], [address] [place] [address] RESULT --Abnormal 3+ METHICILLIN RESISTANT S. AUREUS (MRSA) Abnormal Susceptibility Staphylococcus aureus,Methicillin resistant (MRSA) (1) Antibiotic Interpretation Vitek 2XL Method Status Clindamycin Sensitive SUSCEPTIBLE PATRICK Final Erythromycin Resistant RESISTANT PATRICK Final Gentamicin Sensitive SUSCEPTIBLE PATRICK Final Levofloxacin Resistant RESISTANT PATRICK Final Moxifloxacin Intermediate INTERMEDIATE PATRICK Final Oxacillin Resistant RESISTANT PATRICK Final Tetracycline Sensitive SUSCEPTIBLE PATRICK Final Trimethoprim + Sulfamethoxazole Sensitive SUSCEPTIBLE PATRICK Final Vancomycin Sensitive SUSCEPTIBLE PATRICK Final Testing performed at [facility], [address] [place] [address], [place] [address] All labs were reviewed.Data: Recent Results (from the past 24 hour(s)) Culture, Wound, Smear, w/Anaerobe Result Value Ref Range Gram Stain Result 3+ WBC'S SEEN Gram Stain Result 4+ GRAM POSITIVE COCCI Gram Stain Result Testing performed at [facility], [address] [place] [address] RESULT PENDING Potassium Result Value Ref Range K 4.1 3.5 - 4.9 mmol/L Problem List: Principal Problem: Kidney, perinephric abscess Active Problems: Pyelonephritis Tobacco abuse IV drug user ASSESSMENT & PLAN The patient is a 34 y.o.-year-old male with the following problems: Pyelonephritis,perinephric abscess Appreciate CT-guided drain placement in perirenal fluid collection, now removed. Culture sh ows MRSA. The patient has had persistent fevers, likely due to suboptimal vancomycin trough levels despite every 8 hour dosing, therefore switched to daptomycin on April 15 which avila s been well-tolerated so far. Baseline CPK unremarkable. Repeat CT scan showed that 1 of h is 2 intrarenal collections is larger than 5 cm, now also drained. The smaller abscess was finally drained on 04/24 given persistent fevers. Continue daptomycin complete a total of 4 weeks, which will be completed on May 10. Hepatitis C The patient has been recommended to undergo treatment in the past. We will need to obtain viral load and genotype to direct treatment. Final Recommendations and Disposition: Resolution of fevers and flank pain. Continue daptomycin complete a total of 4 weeks, which will be completed on May 10. Orders written for PICC line placement and IV daptomycin with weekly labs through May 10. This will need to be provided in a controlled setting, most likely a [facility] or [facility], as the patient does have recent injection drug use which would prevent discharge home with a PICC line. ID will see less frequently. D/W NAS and Dr. Juan Manuel Fish will assume care starting 04/28/19 IF there are questions. Thank you for allowing me to participate in the care of your patient. Dictation software, Pulse.io, used which may contain error for similar sounding words even af ter review. Personal communication requested for any clarification. Portions of this chart may have been copied from previous notes for continuity of care purp ose Ave Jason MD Infectious Diseases 04/25/2019 Thelma Bull RN - 04/24/2019 2:17 PM PDTPt tolerated procedure fairly well. Moved around a lot. Pt given 200mcg fentanyl and 4mg versed intra procedure. Site with drain dressing clean dry and intact. Report called to nurse on floor. Pt transferred to floor in no observed or state d distress Agus Swenson MD - 04/24/2019 5:55 AM PDTFormatting of this note might be different from the Located within [facility] Service: Hospitalist Progress Note Hospital Day: LOS: 13 days SUBJECTIVE Patient Summary: From HPI Transfer note Dr. Do:" Mr. Conrad is a 34 yr old man with chronic HCV infection presented at [facility] ED for 1 week for constant LLQ pain that radiates to the back and intermittent feverrs. He had leuko cytosis. CT abdomen showed findings concerning for left pyelonephritis with developing intr arenal abscess; large loculation with perinephric inflammatory changes consistent with an ab scess. Patient was transferred here for possible IR drainage. Patient underwent IR placement of drainage on 04/12/19. 20cc of purulent drainage was obtain. Drained fluid was + MRSA. I D was on board and has been managing antibiotic. " Events Overnight: Dr. Tanner 04/24/19 34-year-old male history of hepatitis C, IV methamphetamine drug abuse , admitted on 2018 with left flank pain, CT scan showed 6.3 cm renal abscesses, interventional radiology c onsulted, CT-guided drainage , cultures growing MRSA, repeat CT scan, required repeat CT-luis ded drainage, left perinephritic tube drained approximately 30 mL's serous fluid. 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 Morataya notified, patient will be placed n.p.o. after midnight, repeat CT-guided drainage for tomor row. Otherwise patient continues to do well is been calm cooperative, spends most of the day sle eping, watching TV and eating Afebrile Minimal back pain The patient states he is angry this morning, although does not elaborate. Otherwise, he de nies shortness of breath, fevers, nausea and vomiting. He appears comfortable. Scheduled Medications DAPTOmycin 6 mg/kg Intravenous Q24H enoxaparin 40 mg Subcutaneous Daily nicotine 1 patch Transdermal Daily sodium chloride 0.9% injection 20 mL Intracatheter 2 times per day PRN Medications acetaminophen, HYDROcodone-acetaminophen, ibuprofen, LORazepam, ondansetron, polyethylene g lycol, Potassium replacement - NON ICU AND Potassium AND potassium chloride AND potassium chloride OBJECTIVE Vital Signs: BP 137/63 | Pulse 71 | Temp 36.9 C (98.4 F) (Oral) | Resp 20 | Ht 1.88 m (6' 2") | Wt 93 kg (205 lb) | SpO2 99% | BMI 26.32 kg/m Patient Vitals for the past 24 hrs: BP Temp Temp src Pulse Resp SpO2 Weight 04/24/19 0318 137/63 36.9 C (98.4 F) Oral 71 20 99 % 93 kg (205 lb) 04/23/19 2341 37.7 C (99.8 F) Oral 04/23/19 2314 133/65 (!) 38.1 C (100.5 F) Oral 100 20 99 % 04/23/192000 133/74 37.6 C (99.7 F) Oral 104 18 99 % 04/23/19 1627 140/82 36.7 C (98.1 F) Oral 92 19 99 % 04/23/19 1132 132/71 37 C (98.6 F) Oral 84 18 98 % 04/23/19 0740 124/74 36.7 C (98.1 F) Oral 83 20 97 % First: 91.5 kg (04/12/19 042)Last: 93 kg (04/24/19317)Difference: 1.5kg Weight change: -0.012 kg (-0.4 oz) Intake/Output Summary (Last 24 hours) at 04/24/2019 0555 Last data filed at 04/23/2019 2100 Gross per 24 hour Intake 376 ml Output 60 ml Net 316 ml Body mass index is 26.32 kg/m. Physical Exam Constitutional: He is oriented to person, place, and time. He appears well-developed and we ll-nourished. HENT: Head: Normocephalic and atraumatic. Eyes: Pupils are equal, round, and reactive to light. EOM are normal. Cardiovascular: Normal rate and regular rhythm. Pulmonary/Chest: Effort normal and breath sounds normal. Abdominal: Soft. Bowel sounds are normal. Musculoskeletal: Normal range of motion. Neurological: He is alert and oriented to person, place, and time. No cranial nerve deficit . Skin: Skin is warm and dry. No erythema. DATA No results for input(s): WBC, HGB, HCT, PLT, MCV in the last 72 hours. Invalid input(s): BANDSPCT Recent Labs Lab 04/23/19 0526 04/22/19 0557 04/21/19 1752 04/18/19 0539 04/17/19 0559 NA -- -- -- -- 136 136 K 4.1 4.1 4.0 < > 4.0 4.2 CL -- -- -- -- 101 99 CO2 -- -- -- -- 31 29 ANIONGAP -- -- -- -- 8 12 BUN -- -- -- -- 11 8 CREA -- -- -- -- 0.8 0.8 CALCIUM -- -- -- -- 9.7 9.6 < > = values in this interval not displayed. No results for input(s): GLU in the last 72 hours. No results for input(s): TROPONIN, BNP in the last 72 hours. Recent Labs Lab 04/24/19 0355 INR 1.0 PTT 33* No results for input(s): IRON, TIBC, PCTSAT, FERRITIN, TSH, VCABULIT76, FOLATE in the last 168 hours. No results for input(s): LACTATE, PROCALCITONI, CRP, ESR in the last 168 hours. No results for input(s): AMYLASE, LIPASE in the last 168 hours. No results for input(s): TRIG, CHOL, HDL, LDL in the last 168 hours. No results for input(s): AMMONIA in the last 168 hours. Recent Results (from the past 360 hour(s)) CT Guided Drain Abscess Narrative CT GUIDED LEFT PERINEPHRIC ABSCESS DRAINAGE CLINICAL INFORMATION: 34-year-old male with left perinephric abscess. COMPARISON: None. PROCEDURE: The risks, benefits and alternatives were discussed with the patient; consent was obtained and placed in the patient's chart. The risks included but were not limited to bleeding, infection, non target organ injury. The patient was placed in the CT scanner and imaging was obtained through the abdomen and pelvis. A reproducible target was demonstrated. The skin overlying the site of interest was localized and marked. The skin was sterilely prepped and draped in the usual fashion. Local lidocaine was administered in the skin and underlying tissues, and a tiny dermatotomy was made. Under CT guidance, a 18 gauge needle system was used to access the target. A wire was positioned through the needle system into the fluid collection. Serial dilatation was performed to the appropriate level and a 10 Spanish multipurpose drainage catheter was placed and secured to the skin under CT guidance. The patient tolerated the procedure well without complication. Conscious sedation was administered. The nurse administered fentanyl and Versed medications during the examination and monitored blood pressure, heart rate, and pulse oximeter. Physician intraservice time of 30 minutes. At least one of the following CT dose optimization techniques were used: Automated exposure control; Adjustment of mA and/or kV according to patient size; Use of iterative reconstruction technique. FINDINGS: CT identified the left perinephric abscess, which was selected for drainage. Intra procedural imaging confirmed appropriate catheter placement. Post procedure imaging showed no evidence for complication. Impression Successful CT-guided left perinephric abscess drainage. Signed by: Liza Morataya David Sign Date/Time: 04/13/2019 6:[address] Abdomen w Contrast Narrative CT ABDOMEN WITH CONTRAST CLINICAL INFORMATION: Follow-up renal abscess drainage. COMPARISON: CT GUIDED DRAIN ABSCESS (04/12/2019); PROCEDURE: Axial images through the abdomen after the administration of 100 mL Omnipaque 350 intravenous contrast. Multiplanar reconstructions. At least one of the following CT dose optimization techniques were used: Automated exposure control; Adjustment of mA and/or kV according to patient size; Use of iterative reconstruction technique. FINDINGS: LUNG BASES: No significant pulmonary abnormality. No pleural effusion or pneumothorax. ABDOMEN Liver and Biliary: Increased craniocaudal length of liver measuring 24.2 cm. Mild periportal edema. The gallbladder is partially distended. No biliary dilation. Pancreas, Spleen and Adrenals: Enlarged spleen measuring approximately 16.5 cm in craniocaudal length. Normal pancreas and both adrenals. Kidneys: The right kidney is normal in size and enhancement pattern. Enlarged edematous left kidney with pararenal edema. There is decreased enhancement in lower pole of the left kidney with a heterogeneous attenuation area measuring 6.3 x 4.7 x 4.8 cm, image 88/series 3, image 49/series 6. Additional smaller intrarenal area of heterogeneous attenuation in interpolar left kidney measuring 3.2 x 3.1 x 2.9 cm. There is marked infiltration of pararenal fat with thickening of anterior and posterior pararenal fascia. Percutaneous pigtail catheter in-situ in left posterior pararenal space. Bowel: No small bowel or colonic dilation or adjacent inflammation. Vessels: No significant abnormality in the aorta or its proximal branches. No significant abnormality in the portal veins, mesenteric veins or systemic veins. Lymph Nodes: Multiple enlarged retroperitoneal lymph nodes. The index left para-aortic lymph node measuring 1.4 cm, image 84/series 3, nonspecific, probably reactive. The index inter aortocaval lymph node measuring 1.6 cm, image 95/series 3. Peritoneum and Retroperitoneum: Small amount of fluid in left paracolic gutter. Retroperitoneal left pararenal fat infiltration with thickening of anterior and posterior pararenal fascia. No pneumoperitoneum. BODY WALL Soft Tissues: No bowel or inflamed fat containing hernia, mass or hemorrhage. Mildly elevated right dome of the diaphragm. Mild subcutaneous edema of the body wall. Small fat containing paraumbilical hernia. Bones: No acute fracture or vertebral end plate destruction. No lytic or blastic lesion. Moderate degenerative disc disease at L4-L5 and L5-S1. Multiple Schmorl nodes at L4-L5. Impression *Complicated acute left pyelonephritis with intrarenal abscess/phlegmon in lower pole of the left kidney measuring 6.3 x 4.7 x 4.8 cm, causing renal capsular bulge. *Additional area of focal pyelonephritis/small organized abscess or phlegmon in interpolar left kidney measuring 3.2 x 3.1 x 2.9 cm. Adjacent pigtail catheter in-situ in left posterior pararenal space. Interval decrease in size of the left pararenal abscess, status post percutaneous drainage. *Small amount of free fluid in left paracolic gutter. *Multiple enlarged retroperitoneal lymph nodes, nonspecific, probably reactive. *Hepatosplenomegaly. *Additional findings as detailed above. Signed by: Liza Zeng, Pushpender Sign Date/Time: 04/15/2019 12:[address] Guided Drain Abscess Narrative CT GUIDED LEFT KIDNEY ABSCESS DRAINAGE CLINICAL INFORMATION: 34-year-old male with left renal abscess and perinephric abscess status post perinephric abscess drainage. Patient continues to have leukocytosis and intermittent fevers and drainage of the left intraparenchymal renal abscess is requested. COMPARISON: None. PROCEDURE: The risks, benefits and alternatives were discussed with the patient; consent was obtained and placed in the patient's chart. The risks included but were not limited to bleeding, infection, non target organ injury. The patient was placed in the CT scanner and imaging was obtained through the abdomen. A reproducible target was demonstrated. The skin overlying the site of interest was localized and marked. The skin was sterilely prepped and draped in the usual fashion. Local lidocaine was administered in the skin and underlying tissues. A wire was passed through the existing catheter into the perinephric abscess. This collection was in line with the intraparenchymal renal abscess. A new catheter with metal stiffener was passed over the wire, the wire were removed, and stylette introduced into the metal stiffener. The catheter was advanced as a unit into the intraparenchymal renal abscess. The inner stylet was removed, a wire was passed into the intra parenchymal abscess, and images acquired confirming positioning. Next, the metal stiffener was removed and the catheter advanced and formed over the wire. The position was confirmed with CT and the catheter was secured to the skin. The patient tolerated the procedure well without complication. Conscious sedation was administered. The nurse administered fentanyl medications during the examination and monitored blood pressure, heart rate, and pulse oximeter. Physician intraservice time of 30 minutes. At least one of the following CT dose optimization techniques were used: Automated exposure control; Adjustment of mA and/or kV according to patient size; Use of iterative reconstruction technique. FINDINGS: CT identified the intraparenchymal left renal abscess which was selected for drainage. Intra procedural imaging confirmed appropriate catheter placement. Post procedure imaging showed no evidence for complication. Impression Successful CT-guided left intraparenchymal renal abscess drainage. Signed by: Liza Morataya David Sign Date/Time: 04/17/2019 6:[address] Abdomen Pelvis w Contrast Narrative CT ABDOMEN AND PELVIS WITH CONTRAST CLINICAL INFORMATION: Abdominal infection suspected. follow-up renal and perirenal abscesses, r/o abdominal abscess. COMPARISON: CT GUIDED DRAIN ABSCESS (04/16/2019); CT ABDOMEN W CONTRAST (04/15/2019); CT GUIDED DRAIN ABSCESS (04/12/2019); PROCEDURE: Axial images through the abdomen and pelvis after the administration of 100 ml Omnipaque 350 intravenous contrast. Multiplanar reconstructions. At least one of the following CT dose optimization techniques were used: Automated exposure control; Adjustment of mA and/or kV according to patient size; Use of iterative reconstruction technique. FINDINGS: LUNG BASES: No significant pulmonary abnormality. No pleural effusion or pneumothorax. Some asymmetric scarring in the right lung base. Stable. ABDOMEN Liver and Biliary: No solid hepatic lesion, but there is diffuse periportal edema. No cirrhosis. Vascular enhancement. Measures 24 cm in the superior inferior dimension at the level of the midclavicular line. Gallbladder not distended, no gallstones or pericholecystic fluid. Pancreas: Normal to technique without peripancreatic fluid collection or intrinsic lesion Spleen: Marked splenomegaly but without nearby fluid or adjacent lesion. Measures about 15 x 8 x 16 cm. Normal adrenals Kidneys: Structurally normal right kidney. Left kidney: Known intrasubstance parenchymal abscess in the midbody in lower pole of the left kidney, now approximated by pigtail catheter. The fluid collection immediately inferior to the left kidney measures about 3.7 by 3.7 by 1.9 cm and may not be drained by the catheter. With marked inflammatory changes in the anterior para and perinephric renal spaces on the left and the pole left kidney seems edematous and somewhat enlarged-especially the lower pole. Likely postprocedural gas about the catheter ABDOMEN AND PELVIS Bowel: No small bowel or colonic dilation or adjacent inflammation. No appendiceal dilation or inflammation. Vessels: No significant abnormality in the aorta or its proximal branches. No significant abnormality in the portal veins, mesenteric veins or systemic veins. Lymph Nodes: Marked periaortic retroperitoneal lymphadenopathy and marked confluent lymphadenopathy at the gerson hepatitis. Compared to the prior examination, these findings are preexistent, and stable to technique. No free air. No ascites. PELVIS Genitourinary: Distal ureters and bladder appear normal. No pelvic masses. BODY WALL Soft Tissues: No bowel or inflamed fat containing hernia, mass or hemorrhage. Bones: Focal disc endplate disease at L4-5 with osteophytosis, subchondral sclerosis and cystic changes Impression 1. Pigtail catheter now centrally located in the central phlegmonous section of the mid lower pole of the left kidney Marked local inflammatory changes and edema. Preexistent and within the spectrum of expected evolving findings with severe renal infection and intervention 2. Pimento like perinephric inflammatory fluid collection inferior to the lower pole of the left kidney. An appreciable collection of stable infected fluid, not seemingly drained by the catheter. 3. Marked but stable retroperitoneal lymphadenopathy and marked confluent lymphadenopathy in the gerson hepatitis. 4. Periportal edema and hepatosplenomegaly Signed by: Liza Alex Timothy Sign Date/Time: 04/20/2019 1:36 PM Imaging: Imaging Reviewed. PROBLEM LIST Principal Problem: Kidney, perinephric abscess Active Problems: Pyelonephritis Tobacco abuse Resolved Problems: * No resolved hospital problems. * ASSESSMENT & PLAN Sepsis secondary to Left pyelonephritis, renal abscess (MRSA) S/p placement of drain 04/09/19, then again 04/16/2019 due to persistent numerous renal abs cesses -Repeat CT scan 04/20/2019, improvement though appears to have an abscess not drained by ca theter -Dr. Morataya/IR notified, patient to be made n.p.o. for repeat CT-guided renal abscess 1 . -MRSA -PICC line placed 04/19/2019 -Patient will require 4 weeks of IV daptomycin, till May 24 -Bag Turner involved looking at tentative placement? -Patient agreeable to plan of care -Stable -prn Percocets for pain -Case management will check to see of patient can receive his IV abx as outpatient with da barb injection visits at hospital. He will not have ongoing IV. Nicontine use Refuses nicotine patch History of methamphetamine abuse -Patient reports history of IV methamphetamine abuse, indicates that he last used approxima tely 1 week prior to admission, indicates he had been residing in [place] and had moved u to [place] to be with his mother, with intentions of stopping his drug. He confirms wantin g to stop and agrees to continuing hospitalization Disposition: Code Status: Full Code Milagro Zambrano MD 04/24/2019 5:55 Daron Ma MD - 04/23/2019 10:33 AM PDT [facility] Service: Hospitalist Progress Note Hospital Day: LOS: 12 days SUBJECTIVE Patient Summary: Transfer note Dr. Do:" Mr. Conrad is a 34 yr old man with chronic HCV infection presented at [facility] ED for 1 week for constant LLQ pain that radiates to the back and intermittent feverrs. He had leuko cytosis. CT abdomen showed findings concerning for left pyelonephritis with developing intr arenal abscess; large loculation with perinephric inflammatory changes consistent with an ab scess. Patient was transferred here for possible IR drainage. Patient underwent IR placement of drainage on 04/12/19. 20cc of purulent drainage was obtain. Drained fluid was + MRSA. I D was on board and has been managing antibiotic. " Events Overnight: 34-year-old male history of hepatitis C, IV methamphetamine drug abuse , admitted on 2018 with left flank pain, CT scan showed 6.3 cm renal abscesses, interventional radiology c onsulted, CT-guided drainage , cultures growing MRSA, repeat CT scan, required repeat CT-luis ded drainage, left perinephritic tube drained approximately 30 mL's serous fluid. 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 Morataya notified, patient will be placed n.p.o. after midnight, repeat CT-guided drainage for yuri iyer. Otherwise patient continues to do well is been calm cooperative, spends most of the day sle eping, watching TV and eating Afebrile Minimal back pain Scheduled Medications DAPTOmycin 6 mg/kg Intravenous Q24H enoxaparin 40 mg Subcutaneous Daily nicotine 1 patch Transdermal Daily sodium chloride 0.9% injection 20 mL Intracatheter 2 times per day Continuous Infusions PRN Medications acetaminophen, HYDROcodone-acetaminophen, ibuprofen, LORazepam, ondansetron, polyethylene g lycol, Potassium replacement - NON ICU AND Potassium AND potassium chloride AND potassium chloride OBJECTIVE Vital Signs: BP 124/74 | Pulse 83 | Temp 36.7 C (98.1 F) (Oral) | Resp 20 | Ht 1.88 m (6' 2") | Wt 93 kg (205 lb 0.4 oz) | SpO2 97% | BMI 26.32 kg/m Patient Vitals for the past 24 hrs: BP Temp Temp src Pulse Resp SpO2 Weight 04/23/19 0740 124/74 36.7 C (98.1 F) Oral 83 20 97 % 04/23/19 0402 93 kg (205 lb 0.4 oz) 04/23/19 0401 125/60 36.9 C (98.4 F) Oral 78 22 98 % 04/23/19 0212 (!) 38 C (100.4 F) Axillary 04/22/19 2338 132/69 37.3 C (99.2 F) Oral 92 22 98 % 04/22/19 1938 131/74 37 C (98.6 F) Oral 100 20 98 % 04/22/19 1529 133/87 36.6 C (97.8 F) Oral 93 18 95 % 04/22/19 1131 135/81 36.7 C (98.1 F) Oral 80 22 100 % Intake/Output Summary (Last 24 hours) at 04/23/2019 1033 Last data filed at 04/23/2019 0800 Gross per 24 hour Intake 3500 ml Output 10 ml Net 3490 ml Physical Exam Constitutional: He is oriented to person, place, and time. Looks well, calm cooperative HENT: Head: Normocephalic and atraumatic. Mouth/Throat: No oropharyngeal exudate. Eyes: Pupils are equal, round, and reactive to light. Conjunctivae are normal. No scleral i cterus. Neck: Normal range of motion. Cardiovascular: Normal rate and regular rhythm. No murmur heard. Pulmonary/Chest: Effort normal and breath sounds normal. He has no wheezes. He has no rales . Abdominal: Soft. + drain in place left flank with serosanguineous output Musculoskeletal: He exhibits no edema. Neurological: He is alert and oriented to person, place, and time. No cranial nerve deficit . Skin: Skin is warm. Nursing note and vitals reviewed. DATA Recent Results (from the past 24 hour(s)) Potassium Result Value Ref Range K 4.1 3.5 - 4.9 mmol/L IMAGES Recent Results (from the past 360 hour(s)) CT Guided Drain Abscess Narrative CT GUIDED LEFT PERINEPHRIC ABSCESS DRAINAGE CLINICAL INFORMATION: 34-year-old male with left perinephric abscess. COMPARISON: None. PROCEDURE: The risks, benefits and alternatives were discussed with the patient; consent was obtained and placed in the patient's chart. The risks included but were not limited to bleeding, infection, non target organ injury. The patient was placed in the CT scanner and imaging was obtained through the abdomen and pelvis. A reproducible target was demonstrated. The skin overlying the site of interest was localized and marked. The skin was sterilely prepped and draped in the usual fashion. Local lidocaine was administered in the skin and underlying tissues, and a tiny dermatotomy was made. Under CT guidance, a 18 gauge needle system was used to access the target. A wire was positioned through the needle system into the fluid collection. Serial dilatation was performed to the appropriate level and a 10 Spanish multipurpose drainage catheter was placed and secured to the skin under CT guidance. The patient tolerated the procedure well without complication. Conscious sedation was administered. The nurse administered fentanyl and Versed medications during the examination and monitored blood pressure, heart rate, and pulse oximeter. Physician intraservice time of 30 minutes. At least one of the following CT dose optimization techniques were used: Automated exposure control; Adjustment of mA and/or kV according to patient size; Use of iterative reconstruction technique. FINDINGS: CT identified the left perinephric abscess, which was selected for drainage. Intra procedural imaging confirmed appropriate catheter placement. Post procedure imaging showed no evidence for complication. Impression Successful CT-guided left perinephric abscess drainage. Signed by: Liza Morataya David Sign Date/Time: 04/13/2019 6:[address] Abdomen w Contrast Narrative CT ABDOMEN WITH CONTRAST CLINICAL INFORMATION: Follow-up renal abscess drainage. COMPARISON: CT GUIDED DRAIN ABSCESS (04/12/2019); PROCEDURE: Axial images through the abdomen after the administration of 100 mL Omnipaque 350 intravenous contrast. Multiplanar reconstructions. At least one of the following CT dose optimization techniques were used: Automated exposure control; Adjustment of mA and/or kV according to patient size; Use of iterative reconstruction technique. FINDINGS: LUNG BASES: No significant pulmonary abnormality. No pleural effusion or pneumothorax. ABDOMEN Liver and Biliary: Increased craniocaudal length of liver measuring 24.2 cm. Mild periportal edema. The gallbladder is partially distended. No biliary dilation. Pancreas, Spleen and Adrenals: Enlarged spleen measuring approximately 16.5 cm in craniocaudal length. Normal pancreas and both adrenals. Kidneys: The right kidney is normal in size and enhancement pattern. Enlarged edematous left kidney with pararenal edema. There is decreased enhancement in lower pole of the left kidney with a heterogeneous attenuation area measuring 6.3 x 4.7 x 4.8 cm, image 88/series 3, image 49/series 6. Additional smaller intrarenal area of heterogeneous attenuation in interpolar left kidney measuring 3.2 x 3.1 x 2.9 cm. There is marked infiltration of pararenal fat with thickening of anterior and posterior pararenal fascia. Percutaneous pigtail catheter in-situ in left posterior pararenal space. Bowel: No small bowel or colonic dilation or adjacent inflammation. Vessels: No significant abnormality in the aorta or its proximal branches. No significant abnormality in the portal veins, mesenteric veins or systemic veins. Lymph Nodes: Multiple enlarged retroperitoneal lymph nodes. The index left para-aortic lymph node measuring 1.4 cm, image 84/series 3, nonspecific, probably reactive. The index inter aortocaval lymph node measuring 1.6 cm, image 95/series 3. Peritoneum and Retroperitoneum: Small amount of fluid in left paracolic gutter. Retroperitoneal left pararenal fat infiltration with thickening of anterior and posterior pararenal fascia. No pneumoperitoneum. BODY WALL Soft Tissues: No bowel or inflamed fat containing hernia, mass or hemorrhage. Mildly elevated right dome of the diaphragm. Mild subcutaneous edema of the body wall. Small fat containing paraumbilical hernia. Bones: No acute fracture or vertebral end plate destruction. No lytic or blastic lesion. Moderate degenerative disc disease at L4-L5 and L5-S1. Multiple Schmorl nodes at L4-L5. Impression *Complicated acute left pyelonephritis with intrarenal abscess/phlegmon in lower pole of the left kidney measuring 6.3 x 4.7 x 4.8 cm, causing renal capsular bulge. *Additional area of focal pyelonephritis/small organized abscess or phlegmon in interpolar left kidney measuring 3.2 x 3.1 x 2.9 cm. Adjacent pigtail catheter in-situ in left posterior pararenal space. Interval decrease in size of the left pararenal abscess, status post percutaneous drainage. *Small amount of free fluid in left paracolic gutter. *Multiple enlarged retroperitoneal lymph nodes, nonspecific, probably reactive. *Hepatosplenomegaly. *Additional findings as detailed above. Signed by: Liza Zeng, Bkder Sign Date/Time: 04/15/2019 12:[address] Guided Drain Abscess Narrative CT GUIDED LEFT KIDNEY ABSCESS DRAINAGE CLINICAL INFORMATION: 34-year-old male with left renal abscess and perinephric abscess status post perinephric abscess drainage. Patient continues to have leukocytosis and intermittent fevers and drainage of the left intraparenchymal renal abscess is requested. COMPARISON: None. PROCEDURE: The risks, benefits and alternatives were discussed with the patient; consent was obtained and placed in the patient's chart. The risks included but were not limited to bleeding, infection, non target organ injury. The patient was placed in the CT scanner and imaging was obtained through the abdomen. A reproducible target was demonstrated. The skin overlying the site of interest was localized and marked. The skin was sterilely prepped and draped in the usual fashion. Local lidocaine was administered in the skin and underlying tissues. A wire was passed through the existing catheter into the perinephric abscess. This collection was in line with the intraparenchymal renal abscess. A new catheter with metal stiffener was passed over the wire, the wire were removed, and stylette introduced into the metal stiffener. The catheter was advanced as a unit into the intraparenchymal renal abscess. The inner stylet was removed, a wire was passed into the intra parenchymal abscess, and images acquired confirming positioning. Next, the metal stiffener was removed and the catheter advanced and formed over the wire. The position was confirmed with CT and the catheter was secured to the skin. The patient tolerated the procedure well without complication. Conscious sedation was administered. The nurse administered fentanyl medications during the examination and monitored blood pressure, heart rate, and pulse oximeter. Physician intraservice time of 30 minutes. At least one of the following CT dose optimization techniques were used: Automated exposure control; Adjustment of mA and/or kV according to patient size; Use of iterative reconstruction technique. FINDINGS: CT identified the intraparenchymal left renal abscess which was selected for drainage. Intra procedural imaging confirmed appropriate catheter placement. Post procedure imaging showed no evidence for complication. Impression Successful CT-guided left intraparenchymal renal abscess drainage. Signed by: Liza Morataya David Sign Date/Time: 04/17/2019 6:[address] Abdomen Pelvis w Contrast Narrative CT ABDOMEN AND PELVIS WITH CONTRAST CLINICAL INFORMATION: Abdominal infection suspected. follow-up renal and perirenal abscesses, r/o abdominal abscess. COMPARISON: CT GUIDED DRAIN ABSCESS (04/16/2019); CT ABDOMEN W CONTRAST (04/15/2019); CT GUIDED DRAIN ABSCESS (04/12/2019); PROCEDURE: Axial images through the abdomen and pelvis after the administration of 100 ml Omnipaque 350 intravenous contrast. Multiplanar reconstructions. At least one of the following CT dose optimization techniques were used: Automated exposure control; Adjustment of mA and/or kV according to patient size; Use of iterative reconstruction technique. FINDINGS: LUNG BASES: No significant pulmonary abnormality. No pleural effusion or pneumothorax. Some asymmetric scarring in the right lung base. Stable. ABDOMEN Liver and Biliary: No solid hepatic lesion, but there is diffuse periportal edema. No cirrhosis. Vascular enhancement. Measures 24 cm in the superior inferior dimension at the level of the midclavicular line. Gallbladder not distended, no gallstones or pericholecystic fluid. Pancreas: Normal to technique without peripancreatic fluid collection or intrinsic lesion Spleen: Marked splenomegaly but without nearby fluid or adjacent lesion. Measures about 15 x 8 x 16 cm. Normal adrenals Kidneys: Structurally normal right kidney. Left kidney: Known intrasubstance parenchymal abscess in the midbody in lower pole of the left kidney, now approximated by pigtail catheter. The fluid collection immediately inferior to the left kidney measures about 3.7 by 3.7 by 1.9 cm and may not be drained by the catheter. With marked inflammatory changes in the anterior para and perinephric renal spaces on the left and the pole left kidney seems edematous and somewhat enlarged-especially the lower pole. Likely postprocedural gas about the catheter ABDOMEN AND PELVIS Bowel: No small bowel or colonic dilation or adjacent inflammation. No appendiceal dilation or inflammation. Vessels: No significant abnormality in the aorta or its proximal branches. No significant abnormality in the portal veins, mesenteric veins or systemic veins. Lymph Nodes: Marked periaortic retroperitoneal lymphadenopathy and marked confluent lymphadenopathy at the gerson hepatitis. Compared to the prior examination, these findings are preexistent, and stable to technique. No free air. No ascites. PELVIS Genitourinary: Distal ureters and bladder appear normal. No pelvic masses. BODY WALL Soft Tissues: No bowel or inflamed fat containing hernia, mass or hemorrhage. Bones: Focal disc endplate disease at L4-5 with osteophytosis, subchondral sclerosis and cystic changes Impression 1. Pigtail catheter now centrally located in the central phlegmonous section of the mid lower pole of the left kidney Marked local inflammatory changes and edema. Preexistent and within the spectrum of expected evolving findings with severe renal infection and intervention 2. Pimento like perinephric inflammatory fluid collection inferior to the lower pole of the left kidney. An appreciable collection of stable infected fluid, not seemingly drained by the catheter. 3. Marked but stable retroperitoneal lymphadenopathy and marked confluent lymphadenopathy in the gerson hepatitis. 4. Periportal edema and hepatosplenomegaly Signed by: Liza Alex Timothy Sign Date/Time: 04/20/2019 1:36 PM PROBLEM LIST Principal Problem: Kidney, perinephric abscess Active Problems: Pyelonephritis Tobacco abuse ASSESSMENT & PLAN Sepsis secondary to Left pyelonephritis, renal abscess (MRSA) S/p placement of drain 10/14/19, then again 04/16/2019 due to persistent numerous renal abs cesses -Repeat CT scan 04/20/2019, improvement though appears to have an abscess not drained by maria esther gilter -Dr. Morataya/IR notified, patient to be made n.p.o. after midnight, for tentative repeat CT-guided renal abscess manage -MRSA -PICC line placed 04/19/2019 -Patient will require 4 weeks of IV daptomycin, till May 10 -Bag Turner involved looking at tentative placement? -Patient agreeable to plan of care -Stable -prn Percocets for pain Nicontine use Refused nicotine patch History of methamphetamine abuse -Patient reports history of IV methamphetamine abuse, indicates that he last used approxima tely 1 week prior to admission, indicates he had been residing in [place] and had moved u to [place] to be with his mother, with intentions of stopping his drug. He confirms wantin g to stop and agrees to continuing hospitalization DVT prophylaxis with lovenox Disposition: Pending Code Status: Full Code Daron Mendoza MD 04/23/2019 10:33 She Cash RN - 04/23/2019 5:43 AM PDTPatient medicated for pain, see MAR. Patient tmax 100.4 F PRN tylen ol given, see MAR. Otherwise hourly rounding uneventful Chart check complete. She Batista RN Electronically signed by She Batista RN at 7:16 AM Teresita Grayson RN - 04/22/2019 6:13 PM PDTPt medicated for pain an d anxiety prn, see mar. Pt very cooperative throughout shift. accordion drain flushed per or ders, only output from drain was from flush. End of shift chart check complete. Teresita Lyle RN Daron Ma M D - 04/22/2019 9:35 AM PDT [facility] Service: Hospitalist Progress Note Hospital Day: LOS: 11 days SUBJECTIVE Patient Summary: Transfer note Dr. Do:" Mr. Conrad is a 34 yr old man with chronic HCV infection presented at [facility] ED for 1 week for constant LLQ pain that radiates to the back and intermittent feverrs. He had leuko cytosis. CT abdomen showed findings concerning for left pyelonephritis with developing intr arenal abscess; large loculation with perinephric inflammatory changes consistent with an ab scess. Patient was transferred here for possible IR drainage. Patient underwent IR placement of drainage on 04/12/19. 20cc of purulent drainage was obtain. Drained fluid was + MRSA. I D was on board and has been managing antibiotic. " Events Overnight: 34-year-old male history of hepatitis C, IV methamphetamine drug abuse , admitted on 2018 with left flank pain, CT scan showed 6.3 cm renal abscesses, interventional radiology c onsulted, CT-guided drainage , cultures growing MRSA, repeat CT scan, required repeat CT-luis ded drainage, left perinephritic tube drained approximately 30 mL's serous fluid. 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 Otherwise patient continues to do well is been calm cooperative, spends most of the day sle eping, watching TV and eating Afebrile Minimal back pain Scheduled Medications DAPTOmycin 6 mg/kg Intravenous Q24H enoxaparin 40 mg Subcutaneous Daily nicotine 1 patch Transdermal Daily sodium chloride 0.9% injection 20 mL Intracatheter 2 times per day Continuous Infusions PRN Medications acetaminophen, HYDROcodone-acetaminophen, ibuprofen, LORazepam, ondansetron, polyethylene g lycol, Potassium replacement - NON ICU AND Potassium AND potassium chloride AND potassium chloride OBJECTIVE Vital Signs: BP 143/65 | Pulse 86 | Temp 36.8 C (98.3 F) (Oral) | Resp 22 | Ht 1.88 m (6' 2") | Wt 92 kg (202 lb 13.2 oz) | SpO2 99% | BMI 26.04 kg/m Patient Vitals for the past 24 hrs: BP Temp Temp src Pulse Resp SpO2 Weight 04/22/19 0758 143/65 36.8 C (98.3 F) Oral 86 22 99 % 04/22/19 0426 151/72 36.7 C (98.1 F) Axillary 89 22 98 % 92 kg (202 lb 13.2 oz) 04/22/19 0011 152/72 36.8 C (98.2 F) Oral 92 20 98 % 04/21/19 1913 133/72 37.1 C (98.8 F) Oral 86 20 100 % 04/21/19 1731 136/78 37.1 C (98.7 F) Oral 96 18 99 % 04/21/19 1152 143/87 36.7 C (98.1 F) Oral 76 16 98 % Intake/Output Summary (Last 24 hours) at 04/22/2019 0935 Last data filed at 04/22/2019 0600 Gross per 24 hour Intake 1260 ml Output 20 ml Net 1240 ml Physical Exam Constitutional: He is oriented to person, place, and time. Looks well, calm cooperative HENT: Head: Normocephalic and atraumatic. Mouth/Throat: No oropharyngeal exudate. Eyes: Pupils are equal, round, and reactive to light. Conjunctivae are normal. No scleral i cterus. Neck: Normal range of motion. Cardiovascular: Normal rate and regular rhythm. No murmur heard. Pulmonary/Chest: Effort normal and breath sounds normal. He has no wheezes. He has no rales . Abdominal: Soft. + drain in place left flank with serosanguineous output Musculoskeletal: He exhibits no edema. Neurological: He is alert and oriented to person, place, and time. No cranial nerve deficit . Skin: Skin is warm. Nursing note and vitals reviewed. DATA Recent Results (from the past 24 hour(s)) Potassium Result Value Ref Range K 4.0 3.5 - 4.9 mmol/L Potassium Result Value Ref Range K 4.1 3.5 - 4.9 mmol/L IMAGES Recent Results (from the past 360 hour(s)) CT Guided Drain Abscess Narrative CT GUIDED LEFT PERINEPHRIC ABSCESS DRAINAGE CLINICAL INFORMATION: 34-year-old male with left perinephric abscess. COMPARISON: None. PROCEDURE: The risks, benefits and alternatives were discussed with the patient; consent was obtained and placed in the patient's chart. The risks included but were not limited to bleeding, infection, non target organ injury. The patient was placed in the CT scanner and imaging was obtained through the abdomen and pelvis. A reproducible target was demonstrated. The skin overlying the site of interest was localized and marked. The skin was sterilely prepped and draped in the usual fashion. Local lidocaine was administered in the skin and underlying tissues, and a tiny dermatotomy was made. Under CT guidance, a 18 gauge needle system was used to access the target. A wire was positioned through the needle system into the fluid collection. Serial dilatation was performed to the appropriate level and a 10 Spanish multipurpose drainage catheter was placed and secured to the skin under CT guidance. The patient tolerated the procedure well without complication. Conscious sedation was administered. The nurse administered fentanyl and Versed medications during the examination and monitored blood pressure, heart rate, and pulse oximeter. Physician intraservice time of 30 minutes. At least one of the following CT dose optimization techniques were used: Automated exposure control; Adjustment of mA and/or kV according to patient size; Use of iterative reconstruction technique. FINDINGS: CT identified the left perinephric abscess, which was selected for drainage. Intra procedural imaging confirmed appropriate catheter placement. Post procedure imaging showed no evidence for complication. Impression Successful CT-guided left perinephric abscess drainage. Signed by: Liza Morataya David Sign Date/Time: 04/13/2019 6:[address] Abdomen w Contrast Narrative CT ABDOMEN WITH CONTRAST CLINICAL INFORMATION: Follow-up renal abscess drainage. COMPARISON: CT GUIDED DRAIN ABSCESS (04/12/2019); PROCEDURE: Axial images through the abdomen after the administration of 100 mL Omnipaque 350 intravenous contrast. Multiplanar reconstructions. At least one of the following CT dose optimization techniques were used: Automated exposure control; Adjustment of mA and/or kV according to patient size; Use of iterative reconstruction technique. FINDINGS: LUNG BASES: No significant pulmonary abnormality. No pleural effusion or pneumothorax. ABDOMEN Liver and Biliary: Increased craniocaudal length of liver measuring 24.2 cm. Mild periportal edema. The gallbladder is partially distended. No biliary dilation. Pancreas, Spleen and Adrenals: Enlarged spleen measuring approximately 16.5 cm in craniocaudal length. Normal pancreas and both adrenals. Kidneys: The right kidney is normal in size and enhancement pattern. Enlarged edematous left kidney with pararenal edema. There is decreased enhancement in lower pole of the left kidney with a heterogeneous attenuation area measuring 6.3 x 4.7 x 4.8 cm, image 88/series 3, image 49/series 6. Additional smaller intrarenal area of heterogeneous attenuation in interpolar left kidney measuring 3.2 x 3.1 x 2.9 cm. There is marked infiltration of pararenal fat with thickening of anterior and posterior pararenal fascia. Percutaneous pigtail catheter in-situ in left posterior pararenal space. Bowel: No small bowel or colonic dilation or adjacent inflammation. Vessels: No significant abnormality in the aorta or its proximal branches. No significant abnormality in the portal veins, mesenteric veins or systemic veins. Lymph Nodes: Multiple enlarged retroperitoneal lymph nodes. The index left para-aortic lymph node measuring 1.4 cm, image 84/series 3, nonspecific, probably reactive. The index inter aortocaval lymph node measuring 1.6 cm, image 95/series 3. Peritoneum and Retroperitoneum: Small amount of fluid in left paracolic gutter. Retroperitoneal left pararenal fat infiltration with thickening of anterior and posterior pararenal fascia. No pneumoperitoneum. BODY WALL Soft Tissues: No bowel or inflamed fat containing hernia, mass or hemorrhage. Mildly elevated right dome of the diaphragm. Mild subcutaneous edema of the body wall. Small fat containing paraumbilical hernia. Bones: No acute fracture or vertebral end plate destruction. No lytic or blastic lesion. Moderate degenerative disc disease at L4-L5 and L5-S1. Multiple Schmorl nodes at L4-L5. Impression *Complicated acute left pyelonephritis with intrarenal abscess/phlegmon in lower pole of the left kidney measuring 6.3 x 4.7 x 4.8 cm, causing renal capsular bulge. *Additional area of focal pyelonephritis/small organized abscess or phlegmon in interpolar left kidney measuring 3.2 x 3.1 x 2.9 cm. Adjacent pigtail catheter in-situ in left posterior pararenal space. Interval decrease in size of the left pararenal abscess, status post percutaneous drainage. *Small amount of free fluid in left paracolic gutter. *Multiple enlarged retroperitoneal lymph nodes, nonspecific, probably reactive. *Hepatosplenomegaly. *Additional findings as detailed above. Signed by: Liza Zeng, Pushpender Sign Date/Time: 04/15/2019 12:[address] Guided Drain Abscess Narrative CT GUIDED LEFT KIDNEY ABSCESS DRAINAGE CLINICAL INFORMATION: 34-year-old male with left renal abscess and perinephric abscess status post perinephric abscess drainage. Patient continues to have leukocytosis and intermittent fevers and drainage of the left intraparenchymal renal abscess is requested. COMPARISON: None. PROCEDURE: The risks, benefits and alternatives were discussed with the patient; consent was obtained and placed in the patient's chart. The risks included but were not limited to bleeding, infection, non target organ injury. The patient was placed in the CT scanner and imaging was obtained through the abdomen. A reproducible target was demonstrated. The skin overlying the site of interest was localized and marked. The skin was sterilely prepped and draped in the usual fashion. Local lidocaine was administered in the skin and underlying tissues. A wire was passed through the existing catheter into the perinephric abscess. This collection was in line with the intraparenchymal renal abscess. A new catheter with metal stiffener was passed over the wire, the wire were removed, and stylette introduced into the metal stiffener. The catheter was advanced as a unit into the intraparenchymal renal abscess. The inner stylet was removed, a wire was passed into the intra parenchymal abscess, and images acquired confirming positioning. Next, the metal stiffener was removed and the catheter advanced and formed over the wire. The position was confirmed with CT and the catheter was secured to the skin. The patient tolerated the procedure well without complication. Conscious sedation was administered. The nurse administered fentanyl medications during the examination and monitored blood pressure, heart rate, and pulse oximeter. Physician intraservice time of 30 minutes. At least one of the following CT dose optimization techniques were used: Automated exposure control; Adjustment of mA and/or kV according to patient size; Use of iterative reconstruction technique. FINDINGS: CT identified the intraparenchymal left renal abscess which was selected for drainage. Intra procedural imaging confirmed appropriate catheter placement. Post procedure imaging showed no evidence for complication. Impression Successful CT-guided left intraparenchymal renal abscess drainage. Signed by: Liza Morataya David Sign Date/Time: 04/17/2019 6:[address] Abdomen Pelvis w Contrast Narrative CT ABDOMEN AND PELVIS WITH CONTRAST CLINICAL INFORMATION: Abdominal infection suspected. follow-up renal and perirenal abscesses, r/o abdominal abscess. COMPARISON: CT GUIDED DRAIN ABSCESS (04/16/2019); CT ABDOMEN W CONTRAST (04/15/2019); CT GUIDED DRAIN ABSCESS (04/12/2019); PROCEDURE: Axial images through the abdomen and pelvis after the administration of 100 ml Omnipaque 350 intravenous contrast. Multiplanar reconstructions. At least one of the following CT dose optimization techniques were used: Automated exposure control; Adjustment of mA and/or kV according to patient size; Use of iterative reconstruction technique. FINDINGS: LUNG BASES: No significant pulmonary abnormality. No pleural effusion or pneumothorax. Some asymmetric scarring in the right lung base. Stable. ABDOMEN Liver and Biliary: No solid hepatic lesion, but there is diffuse periportal edema. No cirrhosis. Vascular enhancement. Measures 24 cm in the superior inferior dimension at the level of the midclavicular line. Gallbladder not distended, no gallstones or pericholecystic fluid. Pancreas: Normal to technique without peripancreatic fluid collection or intrinsic lesion Spleen: Marked splenomegaly but without nearby fluid or adjacent lesion. Measures about 15 x 8 x 16 cm. Normal adrenals Kidneys: Structurally normal right kidney. Left kidney: Known intrasubstance parenchymal abscess in the midbody in lower pole of the left kidney, now approximated by pigtail catheter. The fluid collection immediately inferior to the left kidney measures about 3.7 by 3.7 by 1.9 cm and may not be drained by the catheter. With marked inflammatory changes in the anterior para and perinephric renal spaces on the left and the pole left kidney seems edematous and somewhat enlarged-especially the lower pole. Likely postprocedural gas about the catheter ABDOMEN AND PELVIS Bowel: No small bowel or colonic dilation or adjacent inflammation. No appendiceal dilation or inflammation. Vessels: No significant abnormality in the aorta or its proximal branches. No significant abnormality in the portal veins, mesenteric veins or systemic veins. Lymph Nodes: Marked periaortic retroperitoneal lymphadenopathy and marked confluent lymphadenopathy at the gerson hepatitis. Compared to the prior examination, these findings are preexistent, and stable to technique. No free air. No ascites. PELVIS Genitourinary: Distal ureters and bladder appear normal. No pelvic masses. BODY WALL Soft Tissues: No bowel or inflamed fat containing hernia, mass or hemorrhage. Bones: Focal disc endplate disease at L4-5 with osteophytosis, subchondral sclerosis and cystic changes Impression 1. Pigtail catheter now centrally located in the central phlegmonous section of the mid lower pole of the left kidney Marked local inflammatory changes and edema. Preexistent and within the spectrum of expected evolving findings with severe renal infection and intervention 2. Pimento like perinephric inflammatory fluid collection inferior to the lower pole of the left kidney. An appreciable collection of stable infected fluid, not seemingly drained by the catheter. 3. Marked but stable retroperitoneal lymphadenopathy and marked confluent lymphadenopathy in the gerson hepatitis. 4. Periportal edema and hepatosplenomegaly Signed by: Liza Alex, Maverick Sign Date/Time: 04/20/2019 1:36 PM PROBLEM LIST Principal Problem: Kidney, perinephric abscess Active Problems: Pyelonephritis Tobacco abuse ASSESSMENT & PLAN Sepsis secondary to Left pyelonephritis, renal abscess (MRSA) S/p placement of drain 04/09/19, then again 04/16/2019 due to persistent numerous renal abs cesses -Repeat CT scan 04/20/2019, improvement though appears to have an abscess not drained by ca theter -We will need to reconsult IR, currently unavailable until tomorrow -MRSA -PICC line placed 04/19/2019 -Patient will require 4 weeks of IV daptomycin, till May 10 -Bag Turner involved looking at tentative placement? 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 He confirms wantin g to stop and agrees to continuing hospitalization DVT prophylaxis with lovenox Disposition: Pending Code Status: Full Code Daron Mendoza MD 04/22/2019 9:35 Shweta Mo RN - 04/21/2019 6:12 PM PDTDrain flushed per order. 10 mls output. Hourly rounding uneventful. Shweta Ty RN Ave Mueller MD - 04/21/2019 11:16 AM PDTFormatting of this note might be diffe rent from the original. [facility] Service: Infectious Diseases Progress Note Hospital Day: LOS: 10 days Post-Op Day: * No surgery found * CC: follow up on infection and antibiotic therapy SUBJECTIVE/OVERNIGHT EVENTS The patient remains on treatment with antibiotics. No acute events over last 24 hours are reported. REVIEW OF SYSTEMS: doing well; no fevers overnight MEDICATIONS: Reviewed PHYSICAL EXAM Vital Signs: BP 138/85 | Pulse 86 | Temp 36.7 C (98.1 F) (Oral) | Resp 16 | Ht 1.88 m (6' 2") | Wt 92.1 kg (203 lb 0.7 oz) | SpO2 99% | BMI 26.07 kg/m Focused exam shows: General exam: No distress, cooperative with exam. HEENT: sclera non-icteric, no visible oral thrush Cardiovascular: regular rate and rhythm Lungs: no tachypnea, clear breath sounds. Mildly decreased at bases Abdomen: no distension; L sided tube in place Extremities/MSK: No edema, no joint effusions Skin: No lesions, normal turgor Neurologic: Awake, cranial nerves intact. Follows commands. LABS: MICRO Culture, Blood [[id number]] Collected: 04/16/191217 Order Status: Completed Specimen: Peripheral Blood Updated: 04/17/191626 Special Requests RAC Special Requests [place] [facility] [place] [address] RESULT NO GROWTH AT THIS TIME RESULT Testing performed at [facility], [address] [place] [address] Comment: Testing performed at [facility], [address] [place] [address] Culture, Blood [[id number]] Collected: 04/16/191217 Order Status: Completed Specimen: Peripheral Blood Updated: 04/17/191626 RESULT NO GROWTH AT THIS TIME RESULT Testing performed at [facility], [address] [place] [address] Comment: Testing performed at [facility], [address] [place] [address] Culture, Body Fluid Sterile [[id number]] (Abnormal) Collected: 04/16/19 8388 Order Status: Completed Updated: 04/20/19 0627 Special Requests LT KIDNEY DRAINAGE Special Requests Testing [place] [facility] [place] [id number] Gram Stain Result -- 2+ WBC'S SEEN Gram Stain Result NO ORGANISMS SEEN Gram Stain Result Testing performed at [facility], [address] [place] [address] RESULT --Abnormal 2+ METHICILLIN RESISTANT S. AUREUS (MRSA) Abnormal Susceptibility Staphylococcus aureus,Methicillin resistant (MRSA) (1) Antibiotic Interpretation Vitek 2XL Method Status Clindamycin Sensitive SUSCEPTIBLE PATRICK Final Erythromycin Resistant RESISTANT PATRICK Final Gentamicin Sensitive SUSCEPTIBLE PATRICK Final Levofloxacin Resistant RESISTANT PATRICK Final Moxifloxacin Intermediate INTERMEDIATE PATRICK Final Oxacillin Resistant RESISTANT PATRICK Final Tetracycline Sensitive SUSCEPTIBLE PATRICK Final Trimethoprim + Sulfamethoxazole Sensitive SUSCEPTIBLE PATRICK Final Vancomycin Sensitive SUSCEPTIBLE PATRICK Final Testing performed at [facility], [address] [place] [address] Culture, Body Fluid Sterile [[id number]] Collected: 04/16/19 1600 Order Status: Canceled Specimen: Body Fluid from Abscess Culture, Body Fluid Sterile [[id number]] Order Status: No result Specimen: Body Fluid from Abscess Culture, Body Fluid Sterile [[id number]] Collected: 04/12/19 1003 Order Status: Canceled Specimen: Body Fluid from Abscess Culture, Urine [[id number]] Collected: 04/12/19 0055 Order Status: Completed Specimen: Urine, Clean Catch Updated: 04/13/19 1012 RESULT NO GROWTH RESULT Testing performed at [facility], [address] [place] [address] Comment: Testing performed at [facility], [address] [place] [address] Culture, Wound, Smear, w/Anaerobe [[id number]] (Abnormal) Collected: 04/12/19 0955 Order Status: Completed Updated: 04/16/19 0721 Special Requests LEFT FLANK DRAIN Special Requests Testing performed at [facility] [place] [address] Gram Stain Result -- 2+ WBC'S SEEN Gram Stain Result -- 4+ GRAM POSITIVE COCCI Gram Stain Result Testing performed at [facility], [address] [place] [address] RESULT --Abnormal 3+ METHICILLIN RESISTANT S. AUREUS (MRSA) Abnormal Susceptibility Staphylococcus aureus,Methicillin resistant (MRSA) (1) Antibiotic Interpretation Vitek 2XL Method Status Clindamycin Sensitive SUSCEPTIBLE PATRICK Final Erythromycin Resistant RESISTANT PATRICK Final Gentamicin Sensitive SUSCEPTIBLE PATRICK Final Levofloxacin Resistant RESISTANT PATRICK Final Moxifloxacin Intermediate INTERMEDIATE PATRICK Final Oxacillin Resistant RESISTANT PATRICK Final Tetracycline Sensitive SUSCEPTIBLE PATRICK Final Trimethoprim + Sulfamethoxazole Sensitive SUSCEPTIBLE PATRICK Final Vancomycin Sensitive SUSCEPTIBLE PATRICK Final Testing performed at [address] [address] All labs were reviewed.Data: Recent Results (from the past 24 hour(s)) ECHO Complete Result Value Ref Range LVEF-TTE TRANSTHORACIC ECHO 65 % BASELINE BLOOD PRESSURE 138/84 mmHg Patient Weight (lbs) 203 lb Patient Height 6'2 LVIDd 4.32 cm FS 29 % LA volume 38.96 mL AV mean gradient 4.7 mmHg Aortic Valve Area by Continuity VTI 3.59 cm2 PV peak gradient 3.83 mmHg LVOT diameter 2.29 cm LVOT peak jeannie 115.07 cm/s LVOT peak VTI 21.89 cm AV peak jeannie 132.7 cm/s AV VTI 25.1 cm AV peak gradient 7.04 mmHg LA Volume Index 18 mL/m2 AV LVOT Peak Gradient 5.3 mmHg AV LVOT Mean Gradient 3.36 mmHg RV Free Wall Peak S' 15.58 cm/s PI Peak Velocity 97.84 cm/s RV Diastolic Basal Diameter 2.7 cm LVOT Mean Velocity 88.14 cm/s MV Deceleration Time 193.41 msec MV E/A Ratio 1.5 MV Peak A-Wave 56.78 cm/s MV Peak E-Wave 84.93 cm/s AV Mean Velocity 105.95 cm/s RA Area 12.28 cm2 LA Major 0.251 cm Cardiac Output 6.94 l/min Cardiac Index 3.17 l/min/m2 Heart Rate 80 IVS Diastolic Thickness MM 1.26 cm LVPW Diastolic Thickness MM 1.28 cm IVS Systolic Thickness MM 1.59 cm LV Systolic Diameter MM 3.07 cm LVPW Systolic Thickness MM 2.04 cm TAPSE 2.94 cm RA PRESSURE 8 mmHg Potassium Result Value Ref Range K 3.8 3.5 - 4.9 mmol/L Impression 1. Pigtail catheter now centrally located in the central phlegmonous section of the mid lower pole of the left kidney Marked local inflammatory changes and edema. Preexistent and within the spectrum of expected evolving findings with severe renal infection and intervention 2. Pimento like perinephric inflammatory fluid collection inferior to the lower pole of the left kidney. An appreciable collection of stable infected fluid, not seemingly drained by the catheter. 3. Marked but stable retroperitoneal lymphadenopathy and marked confluent lymphadenopathy in the gerson hepatitis. 4. Periportal edema and hepatosplenomegaly Signed by: Liza Alex Timothy Sign Date/Time: 04/20/2019 1:36 PM Problem List: Principal Problem: Kidney, perinephric abscess Active Problems: Pyelonephritis Tobacco abuse ASSESSMENT & PLAN The patient is a 34 y.o.-year-old male with the following problems: Pyelonephritis,perinephric abscess/MRSA Switched to daptomycin on April 15 Because of suboptimal vanc levels Initial EOT plan for 4 weeks of IV through 05/10. Now with repeat CT scan showing inadequat e drainage of some parts of the abscess. Will need to re-consult IR. May need to adjust duration of treatment ECHO ordered and negative Hepatitis C The patient has been recommended to undergo treatment in the past. We will need to obtain viral load and genotype to direct treatment. Disposition: Resolution of fevers and flank pain. Orders written for PICC line placement a nd IV daptomycin with weekly labs through May 10. This will need to be provided in a c ontrolled setting, most likely a [facility] facility or swing bed, as the patient does have recent injection drug use which would prevent discharge home with a PICC line. D/W Dr. Mendoza Dictation software, Pulse.io, used which may contain error for similar sounding words even af ter review. Personal communication requested for any clarification. Portions of this chart may have been copied from previous notes for continuity of care purp freida Jason MD Infectious Diseases 04/21/2019 Fr ankur Ma MD - 04/21/2019 10:44 AM PDTFormatting of this note might be different from the cass kraus. [facility] Service: Hospitalist Progress Note Hospital Day: LOS: 10 days SUBJECTIVE Patient Summary: Transfer note Dr. Do:" Mr. Conrad is a 34 yr old man with chronic HCV infection presented at [facility] ED for 1 week for constant LLQ pain that radiates to the back and intermittent feverrs. He had leuko cytosis. CT abdomen showed findings concerning for left pyelonephritis with developing intr arenal abscess; large loculation with perinephric inflammatory changes consistent with an ab scess. Patient was transferred here for possible IR drainage. Patient underwent IR placement of drainage on 04/12/19. 20cc of purulent drainage was obtain. Drained fluid was + MRSA. I D was on board and has been managing antibiotic. " Events Overnight: 34-year-old male history of hepatitis C, IV methamphetamine drug abuse , admitted on 2018 with left flank pain, CT scan showed 6.3 cm renal abscess, interventional radiology con sulted, CT-guided drainage , cultures growing MRSA, repeat CT scan, required repeat CT-guide d drainage, left perinephritic tube drained approximately 30 mL's serous fluid. Patient afebrile No acute events overnight, patient had PICC line placed yesterday Repeat CT kidneys done today, pending Patient will require IV daptomycin through May 10 due to patient's prior history of IV methamphetamine drug abuse Afebrile, back pain much improved, eating well, no nausea no emesis Scheduled Medications DAPTOmycin 6 mg/kg Intravenous Q24H enoxaparin 40 mg Subcutaneous Daily nicotine 1 patch Transdermal Daily sodium chloride 0.9% injection 20 mL Intracatheter 2 times per day Continuous Infusions PRN Medications acetaminophen, HYDROcodone-acetaminophen, ibuprofen, LORazepam, ondansetron, polyethylene g lycol, Potassium replacement - NON ICU AND Potassium AND potassium chloride AND potassium chloride OBJECTIVE Vital Signs: BP 138/85 | Pulse 86 | Temp 36.7 C (98.1 F) (Oral) | Resp 16 | Ht 1.88 m (6' 2") | Wt 92.1 kg (203 lb 0.7 oz) | SpO2 99% | BMI 26.07 kg/m Patient Vitals for the past 24 hrs: BP Temp Temp src Pulse Resp SpO2 Weight 04/21/19 0829 138/85 36.7 C (98.1 F) Oral 86 16 99 % 04/21/19 031 127/62 37.8 C (100 F) Oral 83 18 99 % 92.1 kg (203 lb 0.7 oz) 04/20/191952 131/81 37.7 C (99.8 F) Oral 88 18 100 % 04/20/19 1656 139/75 36.4 C (97.5 F) Oral 74 20 100 % 04/20/19 1221 138/84 36.4 C (97.5 F) Oral 80 18 100 % Intake/Output Summary (Last 24 hours) at 04/21/2019 1044 Last data filed at 04/21/2019 0618 Gross per 24 hour Intake 660 ml Output 15 ml Net 645 ml Physical Exam Constitutional: He is oriented to person, place, and time. Looks well, calm cooperative HENT: Head: Normocephalic and atraumatic. Mouth/Throat: No oropharyngeal exudate. Eyes: Pupils are equal, round, and reactive to light. Conjunctivae are normal. No scleral i cterus. Neck: Normal range of motion. Cardiovascular: Normal rate and regular rhythm. No murmur heard. Pulmonary/Chest: Effort normal and breath sounds normal. He has no wheezes. He has no rales . Abdominal: Soft. + drain in place left flank with serosanguineous output Musculoskeletal: He exhibits no edema. Neurological: He is alert and oriented to person, place, and time. No cranial nerve deficit . Skin: Skin is warm. Nursing note and vitals reviewed. DATA Recent Results (from the past 24 hour(s)) ECHO Complete Result Value Ref Range LVEF-TTE TRANSTHORACIC ECHO 65 % BASELINE BLOOD PRESSURE 138/84 mmHg Patient Weight (lbs) 203 lb Patient Height 6'2 LVIDd 4.32 cm FS 29 % LA volume 38.96 mL AV mean gradient 4.7 mmHg Aortic Valve Area by Continuity VTI 3.59 cm2 PV peak gradient 3.83 mmHg LVOT diameter 2.29 cm LVOT peak jeannie 115.07 cm/s LVOT peak VTI 21.89 cm AV peak jeannie 132.7 cm/s AV VTI 25.1 cm AV peak gradient 7.04 mmHg LA Volume Index 18 mL/m2 AV LVOT Peak Gradient 5.3 mmHg AV LVOT Mean Gradient 3.36 mmHg RV Free Wall Peak S' 15.58 cm/s PI Peak Velocity 97.84 cm/s RV Diastolic Basal Diameter 2.7 cm LVOT Mean Velocity 88.14 cm/s MV Deceleration Time 193.41 msec MV E/A Ratio 1.5 MV Peak A-Wave 56.78 cm/s MV Peak E-Wave 84.93 cm/s AV Mean Velocity 105.95 cm/s RA Area 12.28 cm2 LA Major 0.251 cm Cardiac Output 6.94 l/min Cardiac Index 3.17 l/min/m2 Heart Rate 80 IVS Diastolic Thickness MM 1.26 cm LVPW Diastolic Thickness MM 1.28 cm IVS Systolic Thickness MM 1.59 cm LV Systolic Diameter MM 3.07 cm LVPW Systolic Thickness MM 2.04 cm TAPSE 2.94 cm RA PRESSURE 8 mmHg Potassium Result Value Ref Range K 3.8 3.5 - 4.9 mmol/L IMAGES Recent Results (from the past 360 hour(s)) CT Guided Drain Abscess Narrative CT GUIDED LEFT PERINEPHRIC ABSCESS DRAINAGE CLINICAL INFORMATION: 34-year-old male with left perinephric abscess. COMPARISON: None. PROCEDURE: The risks, benefits and alternatives were discussed with the patient; consent was obtained and placed in the patient's chart. The risks included but were not limited to bleeding, infection, non target organ injury. The patient was placed in the CT scanner and imaging was obtained through the abdomen and pelvis. A reproducible target was demonstrated. The skin overlying the site of interest was localized and marked. The skin was sterilely prepped and draped in the usual fashion. Local lidocaine was administered in the skin and underlying tissues, and a tiny dermatotomy was made. Under CT guidance, a 18 gauge needle system was used to access the target. A wire was positioned through the needle system into the fluid collection. Serial dilatation was performed to the appropriate level and a 10 Spanish multipurpose drainage catheter was placed and secured to the skin under CT guidance. The patient tolerated the procedure well without complication. Conscious sedation was administered. The nurse administered fentanyl and Versed medications during the examination and monitored blood pressure, heart rate, and pulse oximeter. Physician intraservice time of 30 minutes. At least one of the following CT dose optimization techniques were used: Automated exposure control; Adjustment of mA and/or kV according to patient size; Use of iterative reconstruction technique. FINDINGS: CT identified the left perinephric abscess, which was selected for drainage. Intra procedural imaging confirmed appropriate catheter placement. Post procedure imaging showed no evidence for complication. Impression Successful CT-guided left perinephric abscess drainage. Signed by: Liza Morataya David Sign Date/Time: 04/13/2019 6:[address] Abdomen w Contrast Narrative CT ABDOMEN WITH CONTRAST CLINICAL INFORMATION: Follow-up renal abscess drainage. COMPARISON: CT GUIDED DRAIN ABSCESS (04/12/2019); PROCEDURE: Axial images through the abdomen after the administration of 100 mL Omnipaque 350 intravenous contrast. Multiplanar reconstructions. At least one of the following CT dose optimization techniques were used: Automated exposure control; Adjustment of mA and/or kV according to patient size; Use of iterative reconstruction technique. FINDINGS: LUNG BASES: No significant pulmonary abnormality. No pleural effusion or pneumothorax. ABDOMEN Liver and Biliary: Increased craniocaudal length of liver measuring 24.2 cm. Mild periportal edema. The gallbladder is partially distended. No biliary dilation. Pancreas, Spleen and Adrenals: Enlarged spleen measuring approximately 16.5 cm in craniocaudal length. Normal pancreas and both adrenals. Kidneys: The right kidney is normal in size and enhancement pattern. Enlarged edematous left kidney with pararenal edema. There is decreased enhancement in lower pole of the left kidney with a heterogeneous attenuation area measuring 6.3 x 4.7 x 4.8 cm, image 88/series 3, image 49/series 6. Additional smaller intrarenal area of heterogeneous attenuation in interpolar left kidney measuring 3.2 x 3.1 x 2.9 cm. There is marked infiltration of pararenal fat with thickening of anterior and posterior pararenal fascia. Percutaneous pigtail catheter in-situ in left posterior pararenal space. Bowel: No small bowel or colonic dilation or adjacent inflammation. Vessels: No significant abnormality in the aorta or its proximal branches. No significant abnormality in the portal veins, mesenteric veins or systemic veins. Lymph Nodes: Multiple enlarged retroperitoneal lymph nodes. The index left para-aortic lymph node measuring 1.4 cm, image 84/series 3, nonspecific, probably reactive. The index inter aortocaval lymph node measuring 1.6 cm, image 95/series 3. Peritoneum and Retroperitoneum: Small amount of fluid in left paracolic gutter. Retroperitoneal left pararenal fat infiltration with thickening of anterior and posterior pararenal fascia. No pneumoperitoneum. BODY WALL Soft Tissues: No bowel or inflamed fat containing hernia, mass or hemorrhage. Mildly elevated right dome of the diaphragm. Mild subcutaneous edema of the body wall. Small fat containing paraumbilical hernia. Bones: No acute fracture or vertebral end plate destruction. No lytic or blastic lesion. Moderate degenerative disc disease at L4-L5 and L5-S1. Multiple Schmorl nodes at L4-L5. Impression *Complicated acute left pyelonephritis with intrarenal abscess/phlegmon in lower pole of the left kidney measuring 6.3 x 4.7 x 4.8 cm, causing renal capsular bulge. *Additional area of focal pyelonephritis/small organized abscess or phlegmon in interpolar left kidney measuring 3.2 x 3.1 x 2.9 cm. Adjacent pigtail catheter in-situ in left posterior pararenal space. Interval decrease in size of the left pararenal abscess, status post percutaneous drainage. *Small amount of free fluid in left paracolic gutter. *Multiple enlarged retroperitoneal lymph nodes, nonspecific, probably reactive. *Hepatosplenomegaly. *Additional findings as detailed above. Signed by: Liza Zeng, Bkder Sign Date/Time: 04/15/2019 12:[address] Guided Drain Abscess Narrative CT GUIDED LEFT KIDNEY ABSCESS DRAINAGE CLINICAL INFORMATION: 34-year-old male with left renal abscess and perinephric abscess status post perinephric abscess drainage. Patient continues to have leukocytosis and intermittent fevers and drainage of the left intraparenchymal renal abscess is requested. COMPARISON: None. PROCEDURE: The risks, benefits and alternatives were discussed with the patient; consent was obtained and placed in the patient's chart. The risks included but were not limited to bleeding, infection, non target organ injury. The patient was placed in the CT scanner and imaging was obtained through the abdomen. A reproducible target was demonstrated. The skin overlying the site of interest was localized and marked. The skin was sterilely prepped and draped in the usual fashion. Local lidocaine was administered in the skin and underlying tissues. A wire was passed through the existing catheter into the perinephric abscess. This collection was in line with the intraparenchymal renal abscess. A new catheter with metal stiffener was passed over the wire, the wire were removed, and stylette introduced into the metal stiffener. The catheter was advanced as a unit into the intraparenchymal renal abscess. The inner stylet was removed, a wire was passed into the intra parenchymal abscess, and images acquired confirming positioning. Next, the metal stiffener was removed and the catheter advanced and formed over the wire. The position was confirmed with CT and the catheter was secured to the skin. The patient tolerated the procedure well without complication. Conscious sedation was administered. The nurse administered fentanyl medications during the examination and monitored blood pressure, heart rate, and pulse oximeter. Physician intraservice time of 30 minutes. At least one of the following CT dose optimization techniques were used: Automated exposure control; Adjustment of mA and/or kV according to patient size; Use of iterative reconstruction technique. FINDINGS: CT identified the intraparenchymal left renal abscess which was selected for drainage. Intra procedural imaging confirmed appropriate catheter placement. Post procedure imaging showed no evidence for complication. Impression Successful CT-guided left intraparenchymal renal abscess drainage. Signed by: Liza Morataya David Sign Date/Time: 04/17/2019 6:[address] Abdomen Pelvis w Contrast Narrative CT ABDOMEN AND PELVIS WITH CONTRAST CLINICAL INFORMATION: Abdominal infection suspected. follow-up renal and perirenal abscesses, r/o abdominal abscess. COMPARISON: CT GUIDED DRAIN ABSCESS (04/16/2019); CT ABDOMEN W CONTRAST (04/15/2019); CT GUIDED DRAIN ABSCESS (04/12/2019); PROCEDURE: Axial images through the abdomen and pelvis after the administration of 100 ml Omnipaque 350 intravenous contrast. Multiplanar reconstructions. At least one of the following CT dose optimization techniques were used: Automated exposure control; Adjustment of mA and/or kV according to patient size; Use of iterative reconstruction technique. FINDINGS: LUNG BASES: No significant pulmonary abnormality. No pleural effusion or pneumothorax. Some asymmetric scarring in the right lung base. Stable. ABDOMEN Liver and Biliary: No solid hepatic lesion, but there is diffuse periportal edema. No cirrhosis. Vascular enhancement. Measures 24 cm in the superior inferior dimension at the level of the midclavicular line. Gallbladder not distended, no gallstones or pericholecystic fluid. Pancreas: Normal to technique without peripancreatic fluid collection or intrinsic lesion Spleen: Marked splenomegaly but without nearby fluid or adjacent lesion. Measures about 15 x 8 x 16 cm. Normal adrenals Kidneys: Structurally normal right kidney. Left kidney: Known intrasubstance parenchymal abscess in the midbody in lower pole of the left kidney, now approximated by pigtail catheter. The fluid collection immediately inferior to the left kidney measures about 3.7 by 3.7 by 1.9 cm and may not be drained by the catheter. With marked inflammatory changes in the anterior para and perinephric renal spaces on the left and the pole left kidney seems edematous and somewhat enlarged-especially the lower pole. Likely postprocedural gas about the catheter ABDOMEN AND PELVIS Bowel: No small bowel or colonic dilation or adjacent inflammation. No appendiceal dilation or inflammation. Vessels: No significant abnormality in the aorta or its proximal branches. No significant abnormality in the portal veins, mesenteric veins or systemic veins. Lymph Nodes: Marked periaortic retroperitoneal lymphadenopathy and marked confluent lymphadenopathy at the gerson hepatitis. Compared to the prior examination, these findings are preexistent, and stable to technique. No free air. No ascites. PELVIS Genitourinary: Distal ureters and bladder appear normal. No pelvic masses. BODY WALL Soft Tissues: No bowel or inflamed fat containing hernia, mass or hemorrhage. Bones: Focal disc endplate disease at L4-5 with osteophytosis, subchondral sclerosis and cystic changes Impression 1. Pigtail catheter now centrally located in the central phlegmonous section of the mid lower pole of the left kidney Marked local inflammatory changes and edema. Preexistent and within the spectrum of expected evolving findings with severe renal infection and intervention 2. Pimento like perinephric inflammatory fluid collection inferior to the lower pole of the left kidney. An appreciable collection of stable infected fluid, not seemingly drained by the catheter. 3. Marked but stable retroperitoneal lymphadenopathy and marked confluent lymphadenopathy in the gerson hepatitis. 4. Periportal edema and hepatosplenomegaly Signed by: Liza Alex Timothy Sign Date/Time: 04/20/2019 1:36 PM PROBLEM LIST Principal Problem: Kidney, perinephric abscess Active Problems: Pyelonephritis Tobacco abuse ASSESSMENT & PLAN Sepsis secondary to Left pyelonephritis, renal abscess (MRSA) S/p placement of drain 04/09/19, drain output appear minimal Repeat CT abdomen/pelvis still showed 2 intrarenal fluid collections -Repeat CT-guided drainage done 04/16/2019 -Repeat CT scan 04/20/2019; pigtail catheter currently in abscess, persistent fluid collect ion 3.7 cm Fluid culture + MRSA -PICC line placed 04/19/2019 -Patient will require 4 weeks of IV daptomycin, till May 10 -Bag Turner involved looking at tentative placement? 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 He confirms wantin g to stop and agrees to continuing hospitalization DVT prophylaxis with lovenox Disposition: Pending Code Status: Full Code Daron Mendoza MD 04/21/2019 10:44 Daron Ma MD - 04/20/2019 12:28 PM PDT [facility] Service: Hospitalist Progress Note Hospital Day: LOS: 9 days SUBJECTIVE Patient Summary: Transfer note Dr. Do:" Mr. Conrad is a 34 yr old man with chronic HCV infection presented at [facility] for 1 week for constant LLQ pain that radiates to the back and intermittent feverrs. He had leuko cytosis. CT abdomen showed findings concerning for left pyelonephritis with developing intr arenal abscess; large loculation with perinephric inflammatory changes consistent with an ab scess. Patient was transferred here for possible IR drainage. Patient underwent IR placement of drainage on 04/12/19. 20cc of purulent drainage was obtain. Drained fluid was + MRSA. I D was on board and has been managing antibiotic. " Events Overnight: 34-year-old male history of hepatitis C, IV methamphetamine drug abuse , admitted on 2018 with left flank pain, CT scan showed 6.3 cm renal abscess, interventional radiology con sulted, CT-guided drainage , cultures growing MRSA, repeat CT scan, required repeat CT-guide d drainage, left perinephritic tube drained approximately 30 mL's serous fluid. Patient afebrile No acute events overnight, patient had PICC line placed yesterday Repeat CT kidneys done today, pending Patient will require IV daptomycin through May 10 due to patient's prior history of IV methamphetamine drug abuse Afebrile, back pain much improved, eating well, no nausea no emesis Scheduled Medications DAPTOmycin 6 mg/kg Intravenous Q24H enoxaparin 40 mg Subcutaneous Daily nicotine 1 patch Transdermal Daily sodium chloride 0.9% injection 20 mL Intracatheter 2 times per day Continuous Infusions PRN Medications acetaminophen, HYDROcodone-acetaminophen, ibuprofen, LORazepam, ondansetron, polyethylene g lycol, Potassium replacement - NON ICU AND Potassium AND potassium chloride AND potassium chloride OBJECTIVE Vital Signs: BP 138/84 | Pulse 80 | Temp 36.4 C (97.5 F) (Oral) | Resp 18 | Ht 1.88 m (6' 2") | Wt 92.5 kg (203 lb 14.8 oz) | SpO2 100% | BMI 26.18 kg/m Patient Vitals for the past 24 hrs: BP Temp Temp src Pulse Resp SpO2 Weight 04/20/19 1221 138/84 36.4 C (97.5 F) Oral 80 18 100 % 04/20/19 0713 131/65 36.7 C (98.1 F) Oral 80 18 99 % 04/20/19 0413 130/65 36.8 C (98.3 F) Oral 91 20 97 % 92.5 kg (203 lb 14.8 oz) 04/19/19 2330 136/74 (!) 38.4 C (101.1 F) Oral 99 20 99 % 04/19/19 1941 134/73 36.9 C (98.5 F) Oral 85 24 98 % 04/19/19 1555 136/75 36.6 C (97.8 F) Oral 71 18 99 % Intake/Output Summary (Last 24 hours) at 04/20/2019 1228 Last data filed at 04/20/2019 0620 Gross per 24 hour Intake 950 ml Output 10 ml Net 940 ml Physical Exam Constitutional: He is oriented to person, place, and time. Looks well, calm cooperative HENT: Head: Normocephalic and atraumatic. Mouth/Throat: No oropharyngeal exudate. Eyes: Pupils are equal, round, and reactive to light. Conjunctivae are normal. No scleral i cterus. Neck: Normal range of motion. Cardiovascular: Normal rate and regular rhythm. No murmur heard. Pulmonary/Chest: Effort normal and breath sounds normal. He has no wheezes. He has no rales . Abdominal: Soft. + drain in place left flank with serosanguineous output Musculoskeletal: He exhibits no edema. Neurological: He is alert and oriented to person, place, and time. No cranial nerve deficit . Skin: Skin is warm. Nursing note and vitals reviewed. DATA Recent Results (from the past 24 hour(s)) Potassium Result Value Ref Range K 4.3 3.5 - 4.9 mmol/L IMAGES Recent Results (from the past 360 hour(s)) CT Guided Drain Abscess Narrative CT GUIDED LEFT PERINEPHRIC ABSCESS DRAINAGE CLINICAL INFORMATION: 34-year-old male with left perinephric abscess. COMPARISON: None. PROCEDURE: The risks, benefits and alternatives were discussed with the patient; consent was obtained and placed in the patient's chart. The risks included but were not limited to bleeding, infection, non target organ injury. The patient was placed in the CT scanner and imaging was obtained through the abdomen and pelvis. A reproducible target was demonstrated. The skin overlying the site of interest was localized and marked. The skin was sterilely prepped and draped in the usual fashion. Local lidocaine was administered in the skin and underlying tissues, and a tiny dermatotomy was made. Under CT guidance, a 18 gauge needle system was used to access the target. A wire was positioned through the needle system into the fluid collection. Serial dilatation was performed to the appropriate level and a 10 Spanish multipurpose drainage catheter was placed and secured to the skin under CT guidance. The patient tolerated the procedure well without complication. Conscious sedation was administered. The nurse administered fentanyl and Versed medications during the examination and monitored blood pressure, heart rate, and pulse oximeter. Physician intraservice time of 30 minutes. At least one of the following CT dose optimization techniques were used: Automated exposure control; Adjustment of mA and/or kV according to patient size; Use of iterative reconstruction technique. FINDINGS: CT identified the left perinephric abscess, which was selected for drainage. Intra procedural imaging confirmed appropriate catheter placement. Post procedure imaging showed no evidence for complication. Impression Successful CT-guided left perinephric abscess drainage. Signed by: Liza Morataya David Sign Date/Time: 04/13/2019 6:[address] Abdomen w Contrast Narrative CT ABDOMEN WITH CONTRAST CLINICAL INFORMATION: Follow-up renal abscess drainage. COMPARISON: CT GUIDED DRAIN ABSCESS (04/12/2019); PROCEDURE: Axial images through the abdomen after the administration of 100 mL Omnipaque 350 intravenous contrast. Multiplanar reconstructions. At least one of the following CT dose optimization techniques were used: Automated exposure control; Adjustment of mA and/or kV according to patient size; Use of iterative reconstruction technique. FINDINGS: LUNG BASES: No significant pulmonary abnormality. No pleural effusion or pneumothorax. ABDOMEN Liver and Biliary: Increased craniocaudal length of liver measuring 24.2 cm. Mild periportal edema. The gallbladder is partially distended. No biliary dilation. Pancreas, Spleen and Adrenals: Enlarged spleen measuring approximately 16.5 cm in craniocaudal length. Normal pancreas and both adrenals. Kidneys: The right kidney is normal in size and enhancement pattern. Enlarged edematous left kidney with pararenal edema. There is decreased enhancement in lower pole of the left kidney with a heterogeneous attenuation area measuring 6.3 x 4.7 x 4.8 cm, image 88/series 3, image 49/series 6. Additional smaller intrarenal area of heterogeneous attenuation in interpolar left kidney measuring 3.2 x 3.1 x 2.9 cm. There is marked infiltration of pararenal fat with thickening of anterior and posterior pararenal fascia. Percutaneous pigtail catheter in-situ in left posterior pararenal space. Bowel: No small bowel or colonic dilation or adjacent inflammation. Vessels: No significant abnormality in the aorta or its proximal branches. No significant abnormality in the portal veins, mesenteric veins or systemic veins. Lymph Nodes: Multiple enlarged retroperitoneal lymph nodes. The index left para-aortic lymph node measuring 1.4 cm, image 84/series 3, nonspecific, probably reactive. The index inter aortocaval lymph node measuring 1.6 cm, image 95/series 3. Peritoneum and Retroperitoneum: Small amount of fluid in left paracolic gutter. Retroperitoneal left pararenal fat infiltration with thickening of anterior and posterior pararenal fascia. No pneumoperitoneum. BODY WALL Soft Tissues: No bowel or inflamed fat containing hernia, mass or hemorrhage. Mildly elevated right dome of the diaphragm. Mild subcutaneous edema of the body wall. Small fat containing paraumbilical hernia. Bones: No acute fracture or vertebral end plate destruction. No lytic or blastic lesion. Moderate degenerative disc disease at L4-L5 and L5-S1. Multiple Schmorl nodes at L4-L5. Impression *Complicated acute left pyelonephritis with intrarenal abscess/phlegmon in lower pole of the left kidney measuring 6.3 x 4.7 x 4.8 cm, causing renal capsular bulge. *Additional area of focal pyelonephritis/small organized abscess or phlegmon in interpolar left kidney measuring 3.2 x 3.1 x 2.9 cm. Adjacent pigtail catheter in-situ in left posterior pararenal space. Interval decrease in size of the left pararenal abscess, status post percutaneous drainage. *Small amount of free fluid in left paracolic gutter. *Multiple enlarged retroperitoneal lymph nodes, nonspecific, probably reactive. *Hepatosplenomegaly. *Additional findings as detailed above. Signed by: Liza Zeng, Pushpender Sign Date/Time: 04/15/2019 12:[address] Guided Drain Abscess Narrative CT GUIDED LEFT KIDNEY ABSCESS DRAINAGE CLINICAL INFORMATION: 34-year-old male with left renal abscess and perinephric abscess status post perinephric abscess drainage. Patient continues to have leukocytosis and intermittent fevers and drainage of the left intraparenchymal renal abscess is requested. COMPARISON: None. PROCEDURE: The risks, benefits and alternatives were discussed with the patient; consent was obtained and placed in the patient's chart. The risks included but were not limited to bleeding, infection, non target organ injury. The patient was placed in the CT scanner and imaging was obtained through the abdomen. A reproducible target was demonstrated. The skin overlying the site of interest was localized and marked. The skin was sterilely prepped and draped in the usual fashion. Local lidocaine was administered in the skin and underlying tissues. A wire was passed through the existing catheter into the perinephric abscess. This collection was in line with the intraparenchymal renal abscess. A new catheter with metal stiffener was passed over the wire, the wire were removed, and stylette introduced into the metal stiffener. The catheter was advanced as a unit into the intraparenchymal renal abscess. The inner stylet was removed, a wire was passed into the intra parenchymal abscess, and images acquired confirming positioning. Next, the metal stiffener was removed and the catheter advanced and formed over the wire. The position was confirmed with CT and the catheter was secured to the skin. The patient tolerated the procedure well without complication. Conscious sedation was administered. The nurse administered fentanyl medications during the examination and monitored blood pressure, heart rate, and pulse oximeter. Physician intraservice time of 30 minutes. At least one of the following CT dose optimization techniques were used: Automated exposure control; Adjustment of mA and/or kV according to patient size; Use of iterative reconstruction technique. FINDINGS: CT identified the intraparenchymal left renal abscess which was selected for drainage. Intra procedural imaging confirmed appropriate catheter placement. Post procedure imaging showed no evidence for complication. Impression Successful CT-guided left intraparenchymal renal abscess drainage. Signed by: Liza Morataya David Sign Date/Time: 04/17/2019 6:59 AM PROBLEM LIST Principal Problem: Kidney, perinephric abscess Active Problems: Pyelonephritis Tobacco abuse ASSESSMENT & PLAN Sepsis secondary to Left pyelonephritis, renal abscess (MRSA) S/p placement of drain 04/09/19, drain output appear minimal Repeat CT abdomen/pelvis still showed 2 intrarenal fluid collections -Repeat CT-guided drainage done 04/16/2019 Fluid culture + MRSA -Repeat CT scan done today -PICC line placed 04/19/2019 -Patient will require 4 weeks of IV daptomycin, till May 10 -Bag Turner involved looking at tentative placement? -Patient agreeable to plan of care Nicontine use Refused nicotine patch History of methamphetamine abuse -Patient reports history of IV methamphetamine abuse, indicates that he last used approxima tely 1 week prior to admission, indicates he had been residing in [place] and had moved [facility] to [place] to be with his mother, with intentions of stopping his drug. He confirms wantin g to stop and agrees to continuing hospitalization DVT prophylaxis with lovenox Disposition: Pending Code Status: Full Code Daron Mendoza MD 04/20/2019 12:28 Juan Pereyra DO - 7:18 AM PDT [facility] Service: Infectious Diseases Progress note Hospital Day: LOS 9 Post-op Day: * No surgery found * Subjective Patient Summary: 34 y.o. male with significant past medical history of hepatitis C who pre sented on 04/11/2019 with left flank and left lower quadrant abdominal pain present for 1 we ek with intermittent fevers. The patient reports that the symptoms initially began with sylvie e mild scrotal discomfort and scrotal swelling that he thought was a hernia that would resol ve on its own. The patient reported needing to strain in order to urinate on the day of adm ission, and there were some episodes of pain with urination intermittently. The patient graham londono presented to the emergency department at [facility] in [place] where work-up included a CT scan revealing possible left renal abscess although difficult to exclu de malignancy. He was transferred here for further management. The patient was started emp irically on ceftriaxone. He has undergone CT-guided drain placement, with adequate drainage of the perinephric fluid collection, and then subsequently had a drain placed in the larger of 2 intraparenchymal renal abscesses. CC: Renal abscess Chart reviewed: No new events. Subjective The patient reports that he still has occasional episodes of diaphoresis. He still has efrain n in the left flank. ROS No fever, chills sweats. No nausea, vomiting or diarrhea. No rashes or pruritis. No oral pa in. DAPTOmycin 6 mg/kg Intravenous Q24H enoxaparin 40 mg Subcutaneous Daily nicotine 1 patch Transdermal Daily PRN Medications: acetaminophen, HYDROcodone-acetaminophen, ibuprofen, LORazepam, ondansetron, polyethylene g lycol, Potassium replacement - NON ICU AND Potassium AND potassium chloride AND potassium chloride Current Facilty-Administered PRN Medications Ordered in Epic Medication Dose Route Frequency Provider Last Rate Last Dose acetaminophen (TYLENOL) tablet 650 mg 650 mg Oral Q4H PRN David Calvin, DO 650 mg at 04/16/19 1641 HYDROcodone-acetaminophen (NORCO) 5-325 mg per tablet 1-2 tablet 1-2 tablet Oral Q4H P RN Teresita Do MD 2 tablet at 04/20/19 0603 ibuprofen (ADVIL, MOTRIN) tablet 600 mg 600 mg Oral Q6H PRN Teresita Do MD 600 mg at 04/17/19 0540 LORazepam (ATIVAN) tablet 1 mg 1 mg Oral Q6H PRN Daron Mendoza MD 1 mg at 9 1353 ondansetron (ZOFRAN) injection 4 mg 4 mg Intravenous Q4H PRN David Calvin, DO 4 mg at 04/18/19 1942 polyethylene glycol (MIRALAX) powder 17 g 17 g Oral Daily PRN David Calvin, DO 17 g at 04/18/19 2100 potassium chloride (KLOR-CON) ER tablet 20-40 mEq 20-40 mEq Oral Daily PRN Teresita hall MD 20 mEq at 04/18/19 0752 And potassium chloride (KLOR-CON) packet 20-40 mEq 20-40 mEq Per G Tube Daily PRN Teresita Do MD Objective: Vital Signs: BP 131/65 | Pulse 80 | Temp 36.7 C (98.1 F) (Oral) | Resp 18 | Ht 1.88 m (6' 2") | Wt 92.5 kg (203 lb 14.8 oz) | SpO2 99% | BMI 26.18 kg/m Temp: [36.6 C (97.8 F)-38.4 C (101.1 F)] 36.7 C (98.1 F) Pulse: [71-99] 80 Resp: [18-24] 18 BP: (130-136)/(65-75) 131/65 Exam: Const: Vitals reviewed. No acute distress Skin: No rashes, no edema, diaphoretic ENT: No thrush. Lungs: CTAB, no rales or wheezes Heart: RRR, no murmur Abd: soft, NT, + bowel sounds Left renal abscess drain insertion site unremarkable. Air leak noted yesterday appears to be resolved. Drain tube contains serosanguineous fluid. Data: Recent Results (from the past 24 hour(s)) Potassium Result Value Ref Range K 4.3 3.5 - 4.9 mmol/L Microbiology: Urine culture collected on admission is pending. Culture collected during CT-guided drai n placement shows MRSA. Problem List: Principal Problem: Kidney, perinephric abscess Active Problems: Pyelonephritis Tobacco abuse Assessment / Recommendations: Pyelonephritis, perinephric abscess Appreciate CT-guided drain placement in perirenal fluid collection, now removed. Culture shows MRSA. The patient has had persistent fevers, likely due to suboptimal vancomycin tro ugh levels despite every 8 hour dosing, therefore switched to daptomycin on April 15 which has been well-tolerated so far. Baseline CPK unremarkable. Repeat CT scan showed that 1 o f his 2 intrarenal collections is larger than 5 cm, now also drained. Continue daptomycin c omplete a total of 4 weeks of treatment for the smaller undrained abscess, will be completed on May 10. The patient continues to have left flank plain and intermittent fevers. I have ordered a repeat CT scan of the abdomen and pelvis to reassess the drained abscesses, and rule out any other areas of intra-abdominal abscess formation. Hepatitis C The patient has been recommended to undergo treatment in the past. We will need to obtain viral load and genotype to direct treatment. Disposition: Resolution of fevers and flank pain. Orders written for PICC line placement a nd IV daptomycin with weekly labs through May 10. This will need to be provided in a c ontrolled setting, most likely a [facility] facility or swing bed, as the patient does have recent injection drug use which would prevent discharge home with a PICC line. Code Status: Full Code Juan Tejada DO 04/20/19 Daron Ma MD - 11:36 AM PDT [facility] Service: Hospitalist Progress Note Hospital Day: LOS: 8 days SUBJECTIVE Patient Summary: Transfer note Dr. Do:" Mr. Conrad is a 34 yr old man with chronic HCV infection presented at [facility] ED for 1 week for constant LLQ pain that radiates to the back and intermittent feverrs. He had leuko cytosis. CT abdomen showed findings concerning for left pyelonephritis with developing intr arenal abscess; large loculation with perinephric inflammatory changes consistent with an ab scess. Patient was transferred here for possible IR drainage. Patient underwent IR placement of drainage on 04/12/19. 20cc of purulent drainage was obtain. Drained fluid was + MRSA. I D was on board and has been managing antibiotic. " Events Overnight: 34-year-old male history of hepatitis C, IV methamphetamine drug abuse , admitted on 2018 with left flank pain, CT scan showed 6.3 cm renal abscess, interventional radiology con sulted, CT-guided drainage , cultures growing MRSA, repeat CT scan, required repeat CT-guide d drainage, left perinephritic tube drained approximately 30 mL's serous fluid. Patient afebrile Patient somewhat anxious regarding recommendation for PICC line placement and IV daptomycin through May 10, due to patient's IV drug abuse history, this needs to be done in the throat setting, likely [facility] facility or swing bed. After further discussion, earnest rudd is agreeable. Scheduled Medications DAPTOmycin 6 mg/kg Intravenous Q24H enoxaparin 40 mg Subcutaneous Daily nicotine 1 patch Transdermal Daily Continuous Infusions PRN Medications acetaminophen, HYDROcodone-acetaminophen, ibuprofen, ondansetron, polyethylene glycol, Pota ssium replacement - NON ICU AND Potassium AND potassium chloride AND potassium c hloride OBJECTIVE Vital Signs: BP 136/73 | Pulse 76 | Temp 37.2 C (98.9 F) (Oral) | Resp 22 | Ht 1.88 m (6' 2") | Wt 92.1 kg (203 lb 0.7 oz) | SpO2 100% | BMI 26.07 kg/m Patient Vitals for the past 24 hrs: BP Temp Temp src Pulse Resp SpO2 Weight 04/19/19 0846 136/73 37.2 C (98.9 F) Oral 76 22 100 % 04/19/19 0349 141/72 37.7 C (99.8 F) Oral 86 28 98 % 92.1 kg (203 lb 0.7 oz) 04/18/19 2357 136/66 (!) 38.1 C (100.5 F) Oral 85 24 100 % 04/18/19 1931 134/79 37.9 C (100.3 F) Oral 92 20 96 % 04/18/19 1711 147/81 36.8 C (98.3 F) Oral 94 18 98 % Intake/Output Summary (Last 24 hours) at 04/19/2019 1136 Last data filed at 04/19/2019 0645 Gross per 24 hour Intake 675 ml Output 520 ml Net 155 ml Physical Exam Constitutional: He is oriented to person, place, and time. Looks well, calm cooperative HENT: Head: Normocephalic and atraumatic. Mouth/Throat: No oropharyngeal exudate. Eyes: Pupils are equal, round, and reactive to light. Conjunctivae are normal. No scleral i cterus. Neck: Normal range of motion. Cardiovascular: Normal rate and regular rhythm. No murmur heard. Pulmonary/Chest: Effort normal and breath sounds normal. He has no wheezes. He has no rales . Abdominal: Soft. + drain in place left flank with serosanguineous output Musculoskeletal: He exhibits no edema. Neurological: He is alert and oriented to person, place, and time. No cranial nerve deficit . Skin: Skin is warm. Nursing note and vitals reviewed. DATA Recent Results (from the past 24 hour(s)) Potassium Result Value Ref Range K 4.3 3.5 - 4.9 mmol/L IMAGES Recent Results (from the past 360 hour(s)) CT Guided Drain Abscess Narrative CT GUIDED LEFT PERINEPHRIC ABSCESS DRAINAGE CLINICAL INFORMATION: 34-year-old male with left perinephric abscess. COMPARISON: None. PROCEDURE: The risks, benefits and alternatives were discussed with the patient; consent was obtained and placed in the patient's chart. The risks included but were not limited to bleeding, infection, non target organ injury. The patient was placed in the CT scanner and imaging was obtained through the abdomen and pelvis. A reproducible target was demonstrated. The skin overlying the site of interest was localized and marked. The skin was sterilely prepped and draped in the usual fashion. Local lidocaine was administered in the skin and underlying tissues, and a tiny dermatotomy was made. Under CT guidance, a 18 gauge needle system was used to access the target. A wire was positioned through the needle system into the fluid collection. Serial dilatation was performed to the appropriate level and a 10 Spanish multipurpose drainage catheter was placed and secured to the skin under CT guidance. The patient tolerated the procedure well without complication. Conscious sedation was administered. The nurse administered fentanyl and Versed medications during the examination and monitored blood pressure, heart rate, and pulse oximeter. Physician intraservice time of 30 minutes. At least one of the following CT dose optimization techniques were used: Automated exposure control; Adjustment of mA and/or kV according to patient size; Use of iterative reconstruction technique. FINDINGS: CT identified the left perinephric abscess, which was selected for drainage. Intra procedural imaging confirmed appropriate catheter placement. Post procedure imaging showed no evidence for complication. Impression Successful CT-guided left perinephric abscess drainage. Signed by: Liza Morataya David Sign Date/Time: 04/13/2019 6:[address] Abdomen w Contrast Narrative CT ABDOMEN WITH CONTRAST CLINICAL INFORMATION: Follow-up renal abscess drainage. COMPARISON: CT GUIDED DRAIN ABSCESS (04/12/2019); PROCEDURE: Axial images through the abdomen after the administration of 100 mL Omnipaque 350 intravenous contrast. Multiplanar reconstructions. At least one of the following CT dose optimization techniques were used: Automated exposure control; Adjustment of mA and/or kV according to patient size; Use of iterative reconstruction technique. FINDINGS: LUNG BASES: No significant pulmonary abnormality. No pleural effusion or pneumothorax. ABDOMEN Liver and Biliary: Increased craniocaudal length of liver measuring 24.2 cm. Mild periportal edema. The gallbladder is partially distended. No biliary dilation. Pancreas, Spleen and Adrenals: Enlarged spleen measuring approximately 16.5 cm in craniocaudal length. Normal pancreas and both adrenals. Kidneys: The right kidney is normal in size and enhancement pattern. Enlarged edematous left kidney with pararenal edema. There is decreased enhancement in lower pole of the left kidney with a heterogeneous attenuation area measuring 6.3 x 4.7 x 4.8 cm, image 88/series 3, image 49/series 6. Additional smaller intrarenal area of heterogeneous attenuation in interpolar left kidney measuring 3.2 x 3.1 x 2.9 cm. There is marked infiltration of pararenal fat with thickening of anterior and posterior pararenal fascia. Percutaneous pigtail catheter in-situ in left posterior pararenal space. Bowel: No small bowel or colonic dilation or adjacent inflammation. Vessels: No significant abnormality in the aorta or its proximal branches. No significant abnormality in the portal veins, mesenteric veins or systemic veins. Lymph Nodes: Multiple enlarged retroperitoneal lymph nodes. The index left para-aortic lymph node measuring 1.4 cm, image 84/series 3, nonspecific, probably reactive. The index inter aortocaval lymph node measuring 1.6 cm, image 95/series 3. Peritoneum and Retroperitoneum: Small amount of fluid in left paracolic gutter. Retroperitoneal left pararenal fat infiltration with thickening of anterior and posterior pararenal fascia. No pneumoperitoneum. BODY WALL Soft Tissues: No bowel or inflamed fat containing hernia, mass or hemorrhage. Mildly elevated right dome of the diaphragm. Mild subcutaneous edema of the body wall. Small fat containing paraumbilical hernia. Bones: No acute fracture or vertebral end plate destruction. No lytic or blastic lesion. Moderate degenerative disc disease at L4-L5 and L5-S1. Multiple Schmorl nodes at L4-L5. Impression *Complicated acute left pyelonephritis with intrarenal abscess/phlegmon in lower pole of the left kidney measuring 6.3 x 4.7 x 4.8 cm, causing renal capsular bulge. *Additional area of focal pyelonephritis/small organized abscess or phlegmon in interpolar left kidney measuring 3.2 x 3.1 x 2.9 cm. Adjacent pigtail catheter in-situ in left posterior pararenal space. Interval decrease in size of the left pararenal abscess, status post percutaneous drainage. *Small amount of free fluid in left paracolic gutter. *Multiple enlarged retroperitoneal lymph nodes, nonspecific, probably reactive. *Hepatosplenomegaly. *Additional findings as detailed above. Signed by: Liza Zeng, Pushpender Sign Date/Time: 04/15/2019 12:[address] Guided Drain Abscess Narrative CT GUIDED LEFT KIDNEY ABSCESS DRAINAGE CLINICAL INFORMATION: 34-year-old male with left renal abscess and perinephric abscess status post perinephric abscess drainage. Patient continues to have leukocytosis and intermittent fevers and drainage of the left intraparenchymal renal abscess is requested. COMPARISON: None. PROCEDURE: The risks, benefits and alternatives were discussed with the patient; consent was obtained and placed in the patient's chart. The risks included but were not limited to bleeding, infection, non target organ injury. The patient was placed in the CT scanner and imaging was obtained through the abdomen. A reproducible target was demonstrated. The skin overlying the site of interest was localized and marked. The skin was sterilely prepped and draped in the usual fashion. Local lidocaine was administered in the skin and underlying tissues. A wire was passed through the existing catheter into the perinephric abscess. This collection was in line with the intraparenchymal renal abscess. A new catheter with metal stiffener was passed over the wire, the wire were removed, and stylette introduced into the metal stiffener. The catheter was advanced as a unit into the intraparenchymal renal abscess. The inner stylet was removed, a wire was passed into the intra parenchymal abscess, and images acquired confirming positioning. Next, the metal stiffener was removed and the catheter advanced and formed over the wire. The position was confirmed with CT and the catheter was secured to the skin. The patient tolerated the procedure well without complication. Conscious sedation was administered. The nurse administered fentanyl medications during the examination and monitored blood pressure, heart rate, and pulse oximeter. Physician intraservice time of 30 minutes. At least one of the following CT dose optimization techniques were used: Automated exposure control; Adjustment of mA and/or kV according to patient size; Use of iterative reconstruction technique. FINDINGS: CT identified the intraparenchymal left renal abscess which was selected for drainage. Intra procedural imaging confirmed appropriate catheter placement. Post procedure imaging showed no evidence for complication. Impression Successful CT-guided left intraparenchymal renal abscess drainage. Signed by: Liza Morataya David Sign Date/Time: 04/17/2019 6:59 AM PROBLEM LIST Principal Problem: Kidney, perinephric abscess Active Problems: Pyelonephritis Tobacco abuse ASSESSMENT & PLAN Sepsis secondary to Left pyelonephritis, renal abscess (MRSA) S/p placement of drain 04/09/19, drain output appear minimal Repeat CT abdomen/pelvis still showed 2 intrarenal fluid collections -Repeat CT-guided drainage done 04/16/2019 Fluid culture + MRSA Vancomycin now changed to daptomycin, Will require 4 weeks antibiotic (May 10) Greatly appreciated ID's inputs; History of IV drug abuse, prevents discharge home with PIC C line, patient will require placement to [facility] facility or swing -Patient agreeable to PICC line plan of care Nicontine use Refused nicotine patch History of methamphetamine abuse -Patient reports history of IV methamphetamine abuse, indicates that he last used approxima tely 1 week prior to admission, indicates he had been residing in [place] and had moved u to [place] to be with his mother, with intentions of stopping his drug. He confirms wantin g to stop and agrees to continuing hospitalization DVT prophylaxis with lovenox Disposition: Pending Code Status: Full Code Daron Mendoza MD 04/19/2019 11:36 Juan Pereyra, DO - 9:17 AM PDT [facility] Service: Infectious Diseases Progress note Hospital Day: LOS 8 Post-op Day: * No surgery found * Subjective Patient Summary: 34 y.o. male with significant past medical history of hepatitis C who pre sented on 04/11/2019 with left flank and left lower quadrant abdominal pain present for 1 we ek with intermittent fevers. The patient reports that the symptoms initially began with sylvie e mild scrotal discomfort and scrotal swelling that he thought was a hernia that would resol ve on its own. The patient reported needing to strain in order to urinate on the day of adm ission, and there were some episodes of pain with urination intermittently. The patient graham londono presented to the emergency department at [facility] in [place] where work-up included a CT scan revealing possible left renal abscess although difficult to exclu de malignancy. He was transferred here for further management. The patient was started emp irically on ceftriaxone. He has undergone CT-guided drain placement, with adequate drainage of the perinephric fluid collection, and then subsequently had a drain placed in the larger of 2 intraparenchymal renal abscesses. CC: Renal abscess Chart reviewed: No new events. Subjective The patient reports that he still has occasional episodes of diaphoresis. He still has efrain n in the left flank, and notes that the skin there is very sensitive. ROS No fever, chills sweats. No nausea, vomiting or diarrhea. No rashes or pruritis. No oral pa in. DAPTOmycin 6 mg/kg Intravenous Q24H enoxaparin 40 mg Subcutaneous Daily nicotine 1 patch Transdermal Daily PRN Medications: acetaminophen, HYDROcodone-acetaminophen, ibuprofen, ondansetron, polyethylene glycol, Pota ssium replacement - NON ICU AND Potassium AND potassium chloride AND potassium c hloride Current Facilty-Administered PRN Medications Ordered in Epic Medication Dose Route Frequency Provider Last Rate Last Dose acetaminophen (TYLENOL) tablet 650 mg 650 mg Oral Q4H PRN David Calvin, DO 650 mg at 04/16/19 1641 HYDROcodone-acetaminophen (NORCO) 5-325 mg per tablet 1-2 tablet 1-2 tablet Oral Q4H P RN Teresita Do MD 1 tablet at 04/18/19 1933 ibuprofen (ADVIL, MOTRIN) tablet 600 mg 600 mg Oral Q6H PRN Teresita Do MD 600 mg at 04/17/19 0540 ondansetron (ZOFRAN) injection 4 mg 4 mg Intravenous Q4H PRN David Calvin, DO 4 mg at 04/18/19 194 polyethylene glycol (MIRALAX) powder 17 g 17 g Oral Daily PRN David Calvin, DO 17 g at 04/18/19 2100 potassium chloride (KLOR-CON) ER tablet 20-40 mEq 20-40 mEq Oral Daily PRN Teresita hall MD 20 mEq at 04/18/19 0752 And potassium chloride (KLOR-CON) packet 20-40 mEq 20-40 mEq Per G Tube Daily PRN Teresita Do MD Objective: Vital Signs: BP 136/73 | Pulse 76 | Temp 37.2 C (98.9 F) (Oral) | Resp 22 | Ht 1.88 m (6' 2") | Wt 92.1 kg (203 lb 0.7 oz) | SpO2 100% | BMI 26.07 kg/m Temp: [36.6 C (97.9 F)-38.1 C (100.5 F)] 37.2 C (98.9 F) Pulse: [76-108] 76 Resp: [18-28] 22 BP: (134-153)/(66-86) 136/73 Exam: Const: Vitals reviewed. No acute distress Skin: No rashes, no edema, diaphoretic ENT: No thrush. Lungs: CTAB, no rales or wheezes Heart: RRR, no murmur Abd: soft, NT, + bowel sounds Left renal abscess drain insertion site unremarkable. Air leak noted yesterday appears to be resolved. Drain tube contains serosanguineous fluid. Data: Recent Results (from the past 24 hour(s)) Potassium Result Value Ref Range K 4.3 3.5 - 4.9 mmol/L Microbiology: Urine culture collected on admission is pending. Culture collected during CT-guided drai n placement shows MRSA. Problem List: Principal Problem: Kidney, perinephric abscess Active Problems: Pyelonephritis Tobacco abuse Assessment / Recommendations: Pyelonephritis, perinephric abscess Appreciate CT-guided drain placement in perirenal fluid collection, now removed. Culture shows MRSA. The patient has had persistent fevers, likely due to suboptimal vancomycin tro ugh levels despite every 8 hour dosing, therefore switched to daptomycin on April 15 which has been well-tolerated so far. Baseline CPK unremarkable. Repeat CT scan showed that 1 o f his 2 intrarenal collections is larger than 5 cm, now also drained. Continue daptomycin c omplete a total of 4 weeks of treatment for the smaller undrained abscess, will be completed on May 10. The patient will need to remain in a controlled setting for monitoring wit h PICC line in place, and for management of his drain tube. I would not consider him safe f or discharge home and would not anticipate ability to place a peripheral IV on a daily basis for outpatient infusion. This will be reviewed with the patient again tomorrow. Hepatitis C The patient has been recommended to undergo treatment in the past. We will need to obtain viral load and genotype to direct treatment. Disposition: May be ready for discharge within the next 24 to 48 hours. Orders written for PICC line placement and IV daptomycin with weekly labs through May 10. This will need to be provided in a controlled setting, most likely a [facility] facility or swing bed , as the patient does have recent injection drug use which would prevent discharge home with a PICC line. Code Status: Full Code Juan Tejada DO 04/19/19 Alexa Falcon RN - 6:53 AM PDTSince initiation of behavior contract, patient has been pleasant and co operative with nursing staff. No further issues with tobacco or aggression. T max 100.5 over night. VS otherwise stable. Medicated x1 with [place] for pain and x1 with IV zofran for nause a with reported improvement. Total 10mL output to drain for shift, though patient movement c auses some loosening of the valve and small leakage of fluids onto sheets that can't be chelsea ured. Hourly rounding otherwise uneventful. Pt observed resting comfortably much of night. Alexa Romeo RN 04/19/2019 6:53 AMElectronically signed by Alexa Romeo RN at 03/28 6:53 AM Ihsan Perkins RN - 04/18/2019 7:33 PM PDTPatient had strong smell o f cigarette smoke in bathroom today. Security called to room for second time regarding toba accounts receivable assistant usage, patient became increasingly agitated defensive and verbally abusive to staff. PC C, security, myself and night RN discussed behavioral contract. A large bag of brown tobacc o was found in bathroom and given to security. Patient agreed to terms in behavioral contra ct and signed form. Emma Johnson RD - 04/18/2019 3:12 PM PDT NUTRITION NOTE Summary Pt assessed d/t LOS. Admitted for treatment intrarenal abscess. Awaiting placement for co ntinued course of IV abx. Pt denies changes in wt or oral intake. Good appetite. Diet Experience Self-Selected Diet: no previous special diet Fluid/Beverage Intake Oral Fluids Amount: ad vale Food Intake Amount of Food: 100% meals TID Type of Food/Meals: Active Orders Diet Diet general; Effective Now Nourishments: not indicated Nutrition-Focused Physical Findings Overall Appearance: well nourished Body Language: receptive, friendly Extremities, Muscles and Bones: no edema documented Digestive System (Mouth to Rectum): no chew/swallow deficits; last BM today Nerves and Cognition: A&O x 4, calm/cooperative Skin: intact Anthropometrics stable Current Weight: 91.1 kg (200 lb 13.4 oz) Admit Weight: 91.5 kg (201 lb 11.5 oz) Biochemical Data, Medical Test, and Procedures Recent Labs 04/18/19 0539 04/16/19 0549 NA 136 < > 139 K 4.0 < > 4.0 GLU 95 < > 104* BUN 11 < > 9 CREA 0.8 < > 0.7 MG -- -- 2.1 < > = values in this interval not displayed. Nutrition Diagnosis No nutrition dx at this time. Recommendations Nutrition Prescription Ordered Nutrition Order Comments: Continue general diet as Rx'd. No nutition dx at this time. Barbara johnson with team. Nutritional Risk Required Follow Up: 7 days(L 04/25/19) Emma Cho RD 04/18/2019 15:12 Daron Ma MD - 04/18/2019 1:09 PM PDT [facility] Service: Hospitalist Progress Note Hospital Day: LOS: 7 days SUBJECTIVE Patient Summary: Transfer note Dr. Do:" Mr. Conrad is a 34 yr old man with chronic HCV infection presented at [facility] ED for 1 week for constant LLQ pain that radiates to the back and intermittent feverrs. He had leuko cytosis. CT abdomen showed findings concerning for left pyelonephritis with developing intr arenal abscess; large loculation with perinephric inflammatory changes consistent with an ab scess. Patient was transferred here for possible IR drainage. Patient underwent IR placement of drainage on 04/12/19. 20cc of purulent drainage was obtain. Drained fluid was + MRSA. I D was on board and has been managing antibiotic. " Events Overnight: 34-year-old male history of hepatitis C, IV drug abuse , admitted on 04/11/2019 with left f lank pain, CT scan showed 6.3 cm renal abscess, interventional radiology consulted, CT-guide d drainage , cultures growing MRSA, repeat CT scan, required repeat CT-guided drainage. This morning patient indicates feeling much improved, no fever no chills good appetite, goo d spirits Patient has been pleasant Throughout hospitalization and compliant With recommended treatme nt Scheduled Medications DAPTOmycin 6 mg/kg Intravenous Q24H enoxaparin 40 mg Subcutaneous Daily nicotine 1 patch Transdermal Daily Continuous Infusions sodium chloride 0.9% PRN Medications acetaminophen, HYDROcodone-acetaminophen, HYDROmorphone, ibuprofen, ondansetron, polyethyle ne glycol, Potassium replacement - NON ICU AND Potassium AND potassium chloride AN D potassium chloride OBJECTIVE Vital Signs: BP 153/86 | Pulse 108 | Temp 36.6 C (97.9 F) (Oral) | Resp 18 | Ht 1.88 m (6' 2") | Wt 91.1 kg (200 lb 13.4 oz) | SpO2 99% | BMI 25.79 kg/m Patient Vitals for the past 24 hrs: BP Temp Temp src Pulse Resp SpO2 Weight 04/18/19 1105 153/86 36.6 C (97.9 F) Oral 108 18 99 % 04/18/19 0747 137/74 36.9 C (98.4 F) Oral 97 18 98 % 04/18/19 0257 144/79 36.7 C (98 F) Oral 98 16 98 % 91.1 kg (200 lb 13.4 oz) 04/17/19 2310 146/83 36.6 C (97.9 F) Oral 93 16 99 % 04/17/192 95.8 kg (211 lb 3.2 oz) 04/17/192008 157/72 37.1 C (98.8 F) Oral 109 19 97 % 04/17/19 1600 153/70 36.6 C (97.8 F) Oral 99 18 98 % Intake/Output Summary (Last 24 hours) at 04/18/2019 1309 Last data filed at 04/18/2019 1111 Gross per 24 hour Intake 685 ml Output 220 ml Net 465 ml Physical Exam Constitutional: He is oriented to person, place, and time. Looks well, calm cooperative HENT: Head: Normocephalic and atraumatic. Mouth/Throat: No oropharyngeal exudate. Eyes: Pupils are equal, round, and reactive to light. Conjunctivae are normal. No scleral i cterus. Neck: Normal range of motion. Cardiovascular: Normal rate and regular rhythm. No murmur heard. Pulmonary/Chest: Effort normal and breath sounds normal. He has no wheezes. He has no rales . Abdominal: Soft. + drain in place left flank with serosanguineous output Musculoskeletal: He exhibits no edema. Neurological: He is alert and oriented to person, place, and time. No cranial nerve deficit . Skin: Skin is warm. Nursing note and vitals reviewed. DATA Recent Results (from the past 24 hour(s)) CBC with Differential Result Value Ref Range WBC 12.68 (H) 3.80 - 11.00 K/uL RBC 4.39 4.20 - 5.70 M/uL Hemoglobin 12.8 (L) 13.2 - 17.0 g/dL Hematocrit 37.4 (L) 39.0 - 50.0 % MCV 85.1 80.0 - 100.0 fl MCH 29.1 27.0 - 34.0 pg MCHC 34.2 32.0 - 35.5 g/dL RDW-SD 40.7 37 - 53 fl Platelet Count 251 150 - 400 K/uL MPV 9.6 fl Diff Type AUTOMATED % Neutrophils 71.70 % % Lymphocytes 15.47 % Monocyte % 11.76 % Eosinophils % 0.83 % Basophils % 0.24 % Neutrophils, Absolute 9.09 (H) 1.90 - 7.40 K/uL Absolute Lymphocytes 1.96 1.00 - 3.90 K/uL Absolute Monocytes 1.49 (H) 0.00 - 0.80 K/uL Eosinophils, Absolute 0.11 0.00 - 0.50 K/uL Basophils, Absolute 0.03 0.00 - 0.10 K/uL Basic Metabolic Panel Result Value Ref Range Na 136 135 - 145 mmol/L K 4.0 3.5 - 4.9 mmol/L Cl 101 99 - 109 mmol/L CO2 31 23 - 32 mmol/L Anion Gap 8 5 - 20 mmol/L Glucose 95 65 - 99 mg/dL BUN 11 8 - 25 mg/dL Creatinine 0.8 0.70 - 1.30 mg/dL BUN/Creatinine Ratio 14 Calcium 9.7 8.5 - 10.5 mg/dL Estimated GFR >60 >60 mL/min/1.73m2 IMAGES Recent Results (from the past 360 hour(s)) CT Guided Drain Abscess Narrative CT GUIDED LEFT PERINEPHRIC ABSCESS DRAINAGE CLINICAL INFORMATION: 34-year-old male with left perinephric abscess. COMPARISON: None. PROCEDURE: The risks, benefits and alternatives were discussed with the patient; consent was obtained and placed in the patient's chart. The risks included but were not limited to bleeding, infection, non target organ injury. The patient was placed in the CT scanner and imaging was obtained through the abdomen and pelvis. A reproducible target was demonstrated. The skin overlying the site of interest was localized and marked. The skin was sterilely prepped and draped in the usual fashion. Local lidocaine was administered in the skin and underlying tissues, and a tiny dermatotomy was made. Under CT guidance, a 18 gauge needle system was used to access the target. A wire was positioned through the needle system into the fluid collection. Serial dilatation was performed to the appropriate level and a 10 Spanish multipurpose drainage catheter was placed and secured to the skin under CT guidance. The patient tolerated the procedure well without complication. Conscious sedation was administered. The nurse administered fentanyl and Versed medications during the examination and monitored blood pressure, heart rate, and pulse oximeter. Physician intraservice time of 30 minutes. At least one of the following CT dose optimization techniques were used: Automated exposure control; Adjustment of mA and/or kV according to patient size; Use of iterative reconstruction technique. FINDINGS: CT identified the left perinephric abscess, which was selected for drainage. Intra procedural imaging confirmed appropriate catheter placement. Post procedure imaging showed no evidence for complication. Impression Successful CT-guided left perinephric abscess drainage. Signed by: Liza Morataya David Sign Date/Time: 04/13/2019 6:[address] Abdomen w Contrast Narrative CT ABDOMEN WITH CONTRAST CLINICAL INFORMATION: Follow-up renal abscess drainage. COMPARISON: CT GUIDED DRAIN ABSCESS (04/12/2019); PROCEDURE: Axial images through the abdomen after the administration of 100 mL Omnipaque 350 intravenous contrast. Multiplanar reconstructions. At least one of the following CT dose optimization techniques were used: Automated exposure control; Adjustment of mA and/or kV according to patient size; Use of iterative reconstruction technique. FINDINGS: LUNG BASES: No significant pulmonary abnormality. No pleural effusion or pneumothorax. ABDOMEN Liver and Biliary: Increased craniocaudal length of liver measuring 24.2 cm. Mild periportal edema. The gallbladder is partially distended. No biliary dilation. Pancreas, Spleen and Adrenals: Enlarged spleen measuring approximately 16.5 cm in craniocaudal length. Normal pancreas and both adrenals. Kidneys: The right kidney is normal in size and enhancement pattern. Enlarged edematous left kidney with pararenal edema. There is decreased enhancement in lower pole of the left kidney with a heterogeneous attenuation area measuring 6.3 x 4.7 x 4.8 cm, image 88/series 3, image 49/series 6. Additional smaller intrarenal area of heterogeneous attenuation in interpolar left kidney measuring 3.2 x 3.1 x 2.9 cm. There is marked infiltration of pararenal fat with thickening of anterior and posterior pararenal fascia. Percutaneous pigtail catheter in-situ in left posterior pararenal space. Bowel: No small bowel or colonic dilation or adjacent inflammation. Vessels: No significant abnormality in the aorta or its proximal branches. No significant abnormality in the portal veins, mesenteric veins or systemic veins. Lymph Nodes: Multiple enlarged retroperitoneal lymph nodes. The index left para-aortic lymph node measuring 1.4 cm, image 84/series 3, nonspecific, probably reactive. The index inter aortocaval lymph node measuring 1.6 cm, image 95/series 3. Peritoneum and Retroperitoneum: Small amount of fluid in left paracolic gutter. Retroperitoneal left pararenal fat infiltration with thickening of anterior and posterior pararenal fascia. No pneumoperitoneum. BODY WALL Soft Tissues: No bowel or inflamed fat containing hernia, mass or hemorrhage. Mildly elevated right dome of the diaphragm. Mild subcutaneous edema of the body wall. Small fat containing paraumbilical hernia. Bones: No acute fracture or vertebral end plate destruction. No lytic or blastic lesion. Moderate degenerative disc disease at L4-L5 and L5-S1. Multiple Schmorl nodes at L4-L5. Impression *Complicated acute left pyelonephritis with intrarenal abscess/phlegmon in lower pole of the left kidney measuring 6.3 x 4.7 x 4.8 cm, causing renal capsular bulge. *Additional area of focal pyelonephritis/small organized abscess or phlegmon in interpolar left kidney measuring 3.2 x 3.1 x 2.9 cm. Adjacent pigtail catheter in-situ in left posterior pararenal space. Interval decrease in size of the left pararenal abscess, status post percutaneous drainage. *Small amount of free fluid in left paracolic gutter. *Multiple enlarged retroperitoneal lymph nodes, nonspecific, probably reactive. *Hepatosplenomegaly. *Additional findings as detailed above. Signed by: Liza Zeng, Pushpender Sign Date/Time: 04/15/2019 12:[address] Guided Drain Abscess Narrative CT GUIDED LEFT KIDNEY ABSCESS DRAINAGE CLINICAL INFORMATION: 34-year-old male with left renal abscess and perinephric abscess status post perinephric abscess drainage. Patient continues to have leukocytosis and intermittent fevers and drainage of the left intraparenchymal renal abscess is requested. COMPARISON: None. PROCEDURE: The risks, benefits and alternatives were discussed with the patient; consent was obtained and placed in the patient's chart. The risks included but were not limited to bleeding, infection, non target organ injury. The patient was placed in the CT scanner and imaging was obtained through the abdomen. A reproducible target was demonstrated. The skin overlying the site of interest was localized and marked. The skin was sterilely prepped and draped in the usual fashion. Local lidocaine was administered in the skin and underlying tissues. A wire was passed through the existing catheter into the perinephric abscess. This collection was in line with the intraparenchymal renal abscess. A new catheter with metal stiffener was passed over the wire, the wire were removed, and stylette introduced into the metal stiffener. The catheter was advanced as a unit into the intraparenchymal renal abscess. The inner stylet was removed, a wire was passed into the intra parenchymal abscess, and images acquired confirming positioning. Next, the metal stiffener was removed and the catheter advanced and formed over the wire. The position was confirmed with CT and the catheter was secured to the skin. The patient tolerated the procedure well without complication. Conscious sedation was administered. The nurse administered fentanyl medications during the examination and monitored blood pressure, heart rate, and pulse oximeter. Physician intraservice time of 30 minutes. At least one of the following CT dose optimization techniques were used: Automated exposure control; Adjustment of mA and/or kV according to patient size; Use of iterative reconstruction technique. FINDINGS: CT identified the intraparenchymal left renal abscess which was selected for drainage. Intra procedural imaging confirmed appropriate catheter placement. Post procedure imaging showed no evidence for complication. Impression Successful CT-guided left intraparenchymal renal abscess drainage. Signed by: Liza Morataya David Sign Date/Time: 04/17/2019 6:59 AM PROBLEM LIST Principal Problem: Kidney, perinephric abscess Active Problems: Pyelonephritis Tobacco abuse ASSESSMENT & PLAN Sepsis secondary to Left pyelonephritis, renal abscess (MRSA) S/p placement of drain 04/09/19, drain output appear minimal Repeat CT abdomen/pelvis still showed 2 intrarenal fluid collections -Repeat CT-guided drainage done 04/16/2019 Fluid culture + MRSA Vancomycin now changed to daptomycin, Will require 4 weeks antibiotic Greatly appreciated ID's inputs; History of IV drug abuse, prevents discharge home with PIC C line Nicontine use Refused nicotine patch DVT prophylaxis with lovenox Disposition: Pending Code Status: Full Code Daron Mendoza MD 04/18/2019 13:09 Juan Pereyra DO - 10:24 AM PDT [facility] Service: Infectious Diseases Progress note Hospital Day: LOS 7 Post-op Day: * No surgery found * Subjective Patient Summary: 34 y.o. male with significant past medical history of hepatitis C who pre sented on 04/11/2019 with left flank and left lower quadrant abdominal pain present for 1 we ek with intermittent fevers. The patient reports that the symptoms initially began with sylvie e mild scrotal discomfort and scrotal swelling that he thought was a hernia that would resol ve on its own. The patient reported needing to strain in order to urinate on the day of adm ission, and there were some episodes of pain with urination intermittently. The patient graham londono presented to the emergency department at [facility] in [place] where work-up included a CT scan revealing possible left renal abscess although difficult to exclu de malignancy. He was transferred here for further management. The patient was started emp irically on ceftriaxone. He has undergone CT-guided drain placement. CC: Renal abscess Chart reviewed: No new events. Subjective The patient denies any further episodes with diaphoresis. He is feeling better overall. N o nausea or vomiting. Left flank pain is slightly improved. ROS No fever, chills sweats. No nausea, vomiting or diarrhea. No rashes or pruritis. No oral pa in. DAPTOmycin 6 mg/kg Intravenous Q24H enoxaparin 40 mg Subcutaneous Daily nicotine 1 patch Transdermal Daily PRN Medications: acetaminophen, HYDROcodone-acetaminophen, HYDROmorphone, ibuprofen, ondansetron, polyethyle ne glycol, Potassium replacement - NON ICU AND Potassium AND potassium chloride AN D potassium chloride Current Facilty-Administered PRN Medications Ordered in Epic Medication Dose Route Frequency Provider Last Rate Last Dose acetaminophen (TYLENOL) tablet 650 mg 650 mg Oral Q4H PRN David Calvin, DO 650 mg at 04/16/19 1641 HYDROcodone-acetaminophen (NORCO) 5-325 mg per tablet 1-2 tablet 1-2 tablet Oral Q4H P RN Teresita Do MD 1 tablet at 04/18/19 0752 HYDROmorphone (DILAUDID) injection 2 mg 2 mg Intravenous Q4H PRN Teresita Do MD 2 mg at 04/16/19 1153 ibuprofen (ADVIL, MOTRIN) tablet 600 mg 600 mg Oral Q6H PRN Teresita Do MD 600 mg at 04/17/19 0540 ondansetron (ZOFRAN) injection 4 mg 4 mg Intravenous Q4H PRN David Calvin, DO 4 mg at 04/16/19 1641 polyethylene glycol (MIRALAX) powder 17 g 17 g Oral Daily PRN David Calvin, DO 17 g at 04/17/19 2303 potassium chloride (KLOR-CON) ER tablet 20-40 mEq 20-40 mEq Oral Daily PRN Teresita hall MD 20 mEq at 04/18/19 0752 And potassium chloride (KLOR-CON) packet 20-40 mEq 20-40 mEq Per G Tube Daily PRN Teresita Do MD Objective: Vital Signs: BP 137/74 | Pulse 97 | Temp 36.9 C (98.4 F) (Oral) | Resp 18 | Ht 1.88 m (6' 2") | Wt 91.1 kg (200 lb 13.4 oz) | SpO2 98% | BMI 25.79 kg/m Temp: [36.5 C (97.7 F)-37.1 C (98.8 F)] 36.9 C (98.4 F) Pulse: [93-114] 97 Resp: [16-20] 18 BP: (137-157)/(70-84) 137/74 Exam: Const: Vitals reviewed. No acute distress Skin: No rashes, no edema, diaphoretic ENT: No thrush. Lungs: CTAB, no rales or wheezes Heart: RRR, no murmur Abd: soft, NT, + bowel sounds Left renal abscess drain insertion site unremarkable. Drain tube contains serosanguineous fluid. Data: Recent Results (from the past 24 hour(s)) CBC with Differential Result Value Ref Range WBC 12.68 (H) 3.80 - 11.00 K/uL RBC 4.39 4.20 - 5.70 M/uL Hemoglobin 12.8 (L) 13.2 - 17.0 g/dL Hematocrit 37.4 (L) 39.0 - 50.0 % MCV 85.1 80.0 - 100.0 fl MCH 29.1 27.0 - 34.0 pg MCHC 34.2 32.0 - 35.5 g/dL RDW-SD 40.7 37 - 53 fl Platelet Count 251 150 - 400 K/uL MPV 9.6 fl Diff Type AUTOMATED % Neutrophils 71.70 % % Lymphocytes 15.47 % Monocyte % 11.76 % Eosinophils % 0.83 % Basophils % 0.24 % Neutrophils, Absolute 9.09 (H) 1.90 - 7.40 K/uL Absolute Lymphocytes 1.96 1.00 - 3.90 K/uL Absolute Monocytes 1.49 (H) 0.00 - 0.80 K/uL Eosinophils, Absolute 0.11 0.00 - 0.50 K/uL Basophils, Absolute 0.03 0.00 - 0.10 K/uL Basic Metabolic Panel Result Value Ref Range Na 136 135 - 145 mmol/L K 4.0 3.5 - 4.9 mmol/L Cl 101 99 - 109 mmol/L CO2 31 23 - 32 mmol/L Anion Gap 8 5 - 20 mmol/L Glucose 95 65 - 99 mg/dL BUN 11 8 - 25 mg/dL Creatinine 0.8 0.70 - 1.30 mg/dL BUN/Creatinine Ratio 14 Calcium 9.7 8.5 - 10.5 mg/dL Estimated GFR >60 >60 mL/min/1.73m2 Microbiology: Urine culture collected on admission is pending. Culture collected during CT-guided drai n placement shows MRSA. Problem List: Principal Problem: Kidney, perinephric abscess Active Problems: Pyelonephritis Tobacco abuse Assessment / Recommendations: Pyelonephritis, perinephric abscess Appreciate CT-guided drain placement in perirenal fluid collection, now removed. Culture shows MRSA. The patient has had persistent fevers, likely due to suboptimal vancomycin tro ugh levels despite every 8 hour dosing, therefore switched to daptomycin on April 15 which has been well-tolerated so far. Baseline CPK unremarkable. Repeat CT scan showed that 1 o f his 2 intrarenal collections is larger than 5 cm, now also drained. Continue daptomycin c omplete a total of 4 weeks of treatment for the smaller undrained abscess, will be completed on May 10. Hepatitis C The patient has been recommended to undergo treatment in the past. We will need to obtain viral load and genotype to direct treatment. Disposition: May be ready for discharge within the next 24 to 48 hours. Orders written for PICC line placement and IV daptomycin with weekly labs through May 10. This will need to be provided in a controlled setting, most likely a [facility] facility or swing bed , as the patient does have recent injection drug use which would prevent discharge home with a PICC line. Code Status: Full Code Juan Tejada DO 04/18/19 Ave Woodruff RN - 7:47 PM PDTEnd of shift chart check complete. Juan Pereyra DO - 04/17/2019 9:58 AM PDT [facility] Service: Infectious Diseases Progress note Hospital Day: LOS 6 Post-op Day: * No surgery found * Subjective Patient Summary: 34 y.o. male with significant past medical history of hepatitis C who pre sented on 04/11/2019 with left flank and left lower quadrant abdominal pain present for 1 we ek with intermittent fevers. The patient reports that the symptoms initially began with sylvie e mild scrotal discomfort and scrotal swelling that he thought was a hernia that would resol ve on its own. The patient reported needing to strain in order to urinate on the day of adm ission, and there were some episodes of pain with urination intermittently. The patient graham londono presented to the emergency department at [facility] in [place] where work-up included a CT scan revealing possible left renal abscess although difficult to exclu de malignancy. He was transferred here for further management. The patient was started emp irically on ceftriaxone. He has undergone CT-guided drain placement. CC: Renal abscess Chart reviewed: No new events. Subjective The patient had CT-guided left intrarenal drain placed yesterday. Sample was sent for cult ure. The patient has had copious sweats overnight and again this morning, otherwise feeling better. Left flank pain is slightly improved. ROS No fever, chills sweats. No nausea, vomiting or diarrhea. No rashes or pruritis. No oral pa in. DAPTOmycin 6 mg/kg Intravenous Q24H enoxaparin 40 mg Subcutaneous Daily nicotine 1 patch Transdermal Daily PRN Medications: acetaminophen, HYDROcodone-acetaminophen, HYDROmorphone, ibuprofen, ondansetron, polyethyle ne glycol, Potassium replacement - NON ICU AND Potassium AND potassium chloride AN D potassium chloride Current Facilty-Administered PRN Medications Ordered in [facility] Medication Dose Route Frequency Provider Last Rate Last Dose acetaminophen (TYLENOL) tablet 650 mg 650 mg Oral Q4H PRN David Calvin, DO 650 mg at 04/16/19 1641 HYDROcodone-acetaminophen (NORCO) 5-325 mg per tablet 1-2 tablet 1-2 tablet Oral Q4H P RN Teresita Do MD 2 tablet at 04/17/19 0422 HYDROmorphone (DILAUDID) injection 2 mg 2 mg Intravenous Q4H PRN Teresita Do MD 2 mg at 04/16/19 1153 ibuprofen (ADVIL, MOTRIN) tablet 600 mg 600 mg Oral Q6H PRN Teresita Do MD 600 mg at 04/17/19 0540 ondansetron (ZOFRAN) injection 4 mg 4 mg Intravenous Q4H PRN David Baltazar Calvin, DO 4 mg at 04/16/19 1641 polyethylene glycol (MIRALAX) powder 17 g 17 g Oral Daily PRN David Baltazar Calvin, DO 17 g at 04/16/19 2104 potassium chloride (KLOR-CON) ER tablet 20-40 mEq 20-40 mEq Oral Daily PRN Teresita hall MD And potassium chloride (KLOR-CON) packet 20-40 mEq 20-40 mEq Per G Tube Daily PRN Teresita Do MD Objective: Vital Signs: BP 136/88 | Pulse 100 | Temp 36.7 C (98.1 F) (Axillary) | Resp 20 | Ht 1.88 m (6' 2 ") | Wt 95.8 kg (211 lb 3.2 oz) | SpO2 97% | BMI 27.12 kg/m Temp: [36.4 C (97.5 F)-38.7 C (101.7 F)] 36.7 C (98.1 F) Pulse: [65-123] 100 Resp: [14-26] 20 BP: (100-166)/(63-95) 136/88 Exam: Const: Vitals reviewed. No acute distress Skin: No rashes, no edema, diaphoretic ENT: No thrush. Lungs: CTAB, no rales or wheezes Heart: RRR, no murmur Abd: soft, NT, + bowel sounds Left renal abscess drain insertion site unremarkable. Drain tube contains serosanguineous fluid. Data: Recent Results (from the past 24 hour(s)) Culture, Body Fluid Sterile Result Value Ref Range Special Requests LT KIDNEY DRAINAGE Special Requests Testing [place] [facility] [facility];[place] [address] Gram Stain Result 2+ WBC'S SEEN Gram Stain Result NO ORGANISMS SEEN Gram Stain Result Testing performed at [facility], [address] [place] [address] RESULT PENDING CBC with Differential Result Value Ref Range WBC 16.22 (H) 3.80 - 11.00 K/uL RBC 4.34 4.20 - 5.70 M/uL Hemoglobin 12.6 (L) 13.2 - 17.0 g/dL Hematocrit 37.0 (L) 39.0 - 50.0 % MCV 85.3 80.0 - 100.0 fl MCH 28.9 27.0 - 34.0 pg MCHC 33.9 32.0 - 35.5 g/dL RDW-SD 39.4 37 - 53 fl Platelet Count 273 150 - 400 K/uL MPV 9.4 fl Diff Type AUTOMATED % Neutrophils 82.53 % % Lymphocytes 7.87 % Monocyte % 9.02 % Eosinophils % 0.08 % Basophils % 0.50 % Neutrophils, Absolute 13.38 (H) 1.90 - 7.40 K/uL Absolute Lymphocytes 1.28 1.00 - 3.90 K/uL Absolute Monocytes 1.46 (H) 0.00 - 0.80 K/uL Eosinophils, Absolute 0.01 0.00 - 0.50 K/uL Basophils, Absolute 0.08 0.00 - 0.10 K/uL Basic Metabolic Panel Result Value Ref Range Na 136 135 - 145 mmol/L K 4.2 3.5 - 4.9 mmol/L Cl 99 99 - 109 mmol/L CO2 29 23 - 32 mmol/L Anion Gap 12 5 - 20 mmol/L Glucose 104 (H) 65 - 99 mg/dL BUN 8 8 - 25 mg/dL Creatinine 0.8 0.70 - 1.30 mg/dL BUN/Creatinine Ratio 10 Calcium 9.6 8.5 - 10.5 mg/dL Estimated GFR >60 >60 mL/min/1.73m2 Microbiology: Urine culture collected on admission is pending. Culture collected during CT-guided drai n placement shows MRSA. Problem List: Principal Problem: Kidney, perinephric abscess Active Problems: Pyelonephritis Tobacco abuse Assessment / Recommendations: Pyelonephritis, perinephric abscess Appreciate CT-guided drain placement in perirenal fluid collection, now removed. Culture shows MRSA. The patient has had persistent fevers, likely due to suboptimal vancomycin tro ugh levels despite every 8 hour dosing, therefore switched to daptomycin on April 15 which has been well-tolerated so far. Baseline CPK unremarkable. Repeat CT scan showed that 1 o f his 2 intrarenal collections is larger than 5 cm, now also drained. Continue daptomycin. Will monitor for improvement in fevers. Hepatitis C The patient has been recommended to undergo treatment in the past. We will need to obtain viral load and genotype to direct treatment. Code Status: Full Code Juan Tejada DO 04/17/19 Cyndee Monahan PA - 9:31 AM PDT Interventional Radiology Progress Note Patient Name: Timothy Conrad Date of : 1985 Consulting Provider: Cyndee Jolley PA-C Interval History/Subjective: Timothy Conrad is a 34 y.o. male with perinephric abscess s/p CT guided drain placement and ca theter exchange, repositioning and aspiration yesterday. Patient reports feeling much better today, stating "I think my fevers broke." WBC elevated at 16.22 and Tmax 101.5 at 0414 this morning. Patient on Daptomycin and being followed by ID. No output recorded overnight and no output noticed in bag today, accordion not pressed down, therefore no suction applied. Labs: 3 Day Labs: Recent Labs Lab 04/17/19 0559 04/16/19 0549 04/15/19 0535 04/13/19 0607 04/12/19 0513 WBC 16.22* 13.62* 12.08* < > 14.87* 18.08* HGB 12.6* 11.7* 11.4* < > 12.5* 13.2 HCT 37.0* 34.2* 33.5* < > 36.5* 38.6* PLT 273 240 207 < > 216 207 NA 136 139 138 < > 138 133* K 4.2 4.0 3.5 < > 3.9 4.2 CL 99 104 105 < > 104 101 CO2 29 29 28 < > 25 26 BUN 8 9 10 < > 10 9 CALCIUM 9.6 9.3 8.6 < > 9.0 9.1 MG -- 2.1 -- -- 1.8 1.9 PTT -- -- -- -- -- 33* INR -- -- -- -- -- 1.0 < > = values in this interval not displayed. Pertinent Imaging/Procedures: Ct Abdomen W Contrast Result Date: 04/15/2019 CT ABDOMEN WITH CONTRAST CLINICAL INFORMATION: Follow-up renal abscess drainage. COMPARISON : CT GUIDED DRAIN ABSCESS (04/12/2019); PROCEDURE: Axial images through the abdomen after th e administration of 100 mL Omnipaque 350 intravenous contrast. Multiplanar reconstructions. At least one of the following CT dose optimization techniques were used: Automated exposure control; Adjustment of mA and/or kV according to patient size; Use of iterative reconstruct ion technique. FINDINGS: LUNG BASES: No significant pulmonary abnormality. No pleural effusi on or pneumothorax. ABDOMEN Liver and Biliary: Increased craniocaudal length of liver measur ing 24.2 cm. Mild periportal edema. The gallbladder is partially distended. No biliary di lation. Pancreas, Spleen and Adrenals: Enlarged spleen measuring approximately 16.5 cm in cr aniocaudal length. Normal pancreas and both adrenals. Kidneys: The right kidney is normal i n size and enhancement pattern. Enlarged edematous left kidney with pararenal edema. There is decreased enhancement in lower pole of the left kidney with a heterogeneous attenuation a germain measuring 6.3 x 4.7 x 4.8 cm, image 88/series 3, image 49/series 6. Additional smaller intrarenal area of heterogeneous attenuation in interpolar left kidney measuring 3.2 x 3.1 x 2.9 cm. There is marked infiltration of pararenal fat with thickening of anterior and post erior pararenal fascia. Percutaneous pigtail catheter in-situ in left posterior pararenal s pace. Bowel: No small bowel or colonic dilation or adjacent inflammation. Vessels: No signif icant abnormality in the aorta or its proximal branches. No significant abnormality in the p ortal veins, mesenteric veins or systemic veins. Lymph Nodes: Multiple enlarged retroperiton eal lymph nodes. The index left para-aortic lymph node measuring 1.4 cm, image 84/series 3, nonspecific, probably reactive. The index inter aortocaval lymph node measuring 1.6 cm, im age 95/series 3. Peritoneum and Retroperitoneum: Small amount of fluid in left paracolic gut ter. Retroperitoneal left pararenal fat infiltration with thickening of anterior and early childhood education coordinator ior pararenal fascia. No pneumoperitoneum. BODY WALL Soft Tissues: No bowel or inflamed fat containing hernia, mass or hemorrhage. Mildly elevated right dome of the diaphragm. Mild subcutaneous edema of the body wall. Small fat containing paraumbilical hernia. Bones: No a cute fracture or vertebral end plate destruction. No lytic or blastic lesion. Moderate dege nerative disc disease at L4-L5 and L5-S1. Multiple Schmorl nodes at L4-L5. *Complicated acute left pyelonephritis with intrarenal abscess/phlegmon in lower pole of th e left kidney measuring 6.3 x 4.7 x 4.8 cm, causing renal capsular bulge. *Additional area o f focal pyelonephritis/small organized abscess or phlegmon in interpolar left kidney measuri ng 3.2 x 3.1 x 2.9 cm. Adjacent pigtail catheter in-situ in left posterior pararenal space. Interval decrease in size of the left pararenal abscess, status post percutaneous drainage. *Small amount of free fluid in left paracolic gutter. *Multiple enlarged retroperitoneal lym ph nodes, nonspecific, probably reactive. *Hepatosplenomegaly. *Additional findings as detai led above. Signed by: Liza Zeng, Arnold Sign Date/Time: 04/15/2019 12:[address] Guided Drain Abscess Result Date: 04/17/2019 CT GUIDED LEFT KIDNEY ABSCESS DRAINAGE CLINICAL INFORMATION: 34-year-old male with left luisa al abscess and perinephric abscess status post perinephric abscess drainage. Patient contin ues to have leukocytosis and intermittent fevers and drainage of the left intraparenchymal r enal abscess is requested. COMPARISON: None. PROCEDURE: The risks, benefits and alternatives were discussed with the patient; consent was obtained and placed in the patient's chart. Th e risks included but were not limited to bleeding, infection, non target organ injury. The p atient was placed in the CT scanner and imaging was obtained through the abdomen. A reprodu cible target was demonstrated. The skin overlying the site of interest was localized and mar ked. The skin was sterilely prepped and draped in the usual fashion. Local lidocaine was adm inistered in the skin and underlying tissues. A wire was passed through the existing cathet er into the perinephric abscess. This collection was in line with the intraparenchymal crow l abscess. A new catheter with metal stiffener was passed over the wire, the wire were kendell charly, and stylette introduced into the metal stiffener. The catheter was advanced as a unit into the intraparenchymal renal abscess. The inner stylet was removed, a wire was passed in to the intra parenchymal abscess, and images acquired confirming positioning. Next, the meta l stiffener was removed and the catheter advanced and formed over the wire. The position wa s confirmed with CT and the catheter was secured to the skin. The patient tolerated the pro cedure well without complication. Conscious sedation was administered. The nurse administer ed fentanyl medications during the examination and monitored blood pressure, heart rate, and pulse oximeter. Physician intraservice time of 30 minutes. At least one of the following CT dose optimization techniques were used: Automated exposure control; Adjustment of mA and/or kV according to patient size; Use of iterative reconstruction technique. FINDINGS: CT ident ified the intraparenchymal left renal abscess which was selected for drainage. Intra procedu ral imaging confirmed appropriate catheter placement. Post procedure imaging showed no evide nce for complication. Successful CT-guided left intraparenchymal renal abscess drainage. Signed by: Liza Morataya David Sign Date/Time: 04/17/2019 6:[address] Guided Drain Abscess Result Date: 04/13/2019 CT GUIDED LEFT PERINEPHRIC ABSCESS DRAINAGE CLINICAL INFORMATION: 34-year-old male with lef t perinephric abscess. COMPARISON: None. PROCEDURE: The risks, benefits and alternatives wer e discussed with the patient; consent was obtained and placed in the patient's chart. The ri sks included but were not limited to bleeding, infection, non target organ injury. The patie nt was placed in the CT scanner and imaging was obtained through the abdomen and pelvis. A reproducible target was demonstrated. The skin overlying the site of interest was localized and marked. The skin was sterilely prepped and draped in the usual fashion. Local lidocaine was administered in the skin and underlying tissues, and a tiny dermatotomy was made. Under CT guidance, a 18 gauge needle system was used to access the target. A wire was positioned t hrough the needle system into the fluid collection. Serial dilatation was performed to the a ppropriate level and a 10 Spanish multipurpose drainage catheter was placed and secured to th e skin under CT guidance. The patient tolerated the procedure well without complication. Con scious sedation was administered. The nurse administered fentanyl and Versed medications du ring the examination and monitored blood pressure, heart rate, and pulse oximeter. Physician intraservice time of 30 minutes. At least one of the following CT dose optimization techniq ues were used: Automated exposure control; Adjustment of mA and/or kV according to patient s ize; Use of iterative reconstruction technique. FINDINGS: CT identified the left perinephric abscess, which was selected for drainage. Intra procedural imaging confirmed appropriate ca theter placement. Post procedure imaging showed no evidence for complication. Successful CT-guided left perinephric abscess drainage. Signed by: Liza Morataya David Sign Date/Time: 04/13/2019 6:34 PM Physical Examination: Vitals: 04/17/19 0726 BP: 146/84 Pulse: 109 Resp: 20 Temp: 36.6 C (97.9 F) Physical Exam Constitutional: He is oriented to person, place, and time. No distress. HENT: Head: Normocephalic and atraumatic. Neck: Neck supple. Pulmonary/Chest: Effort normal. No respiratory distress. Abdominal: Soft. Neurological: He is alert and oriented to person, place, and time. Skin: Skin is warm and dry. He is not diaphoretic. Drain C/D/I with scant amount of serosanguinous output in bag Psychiatric: Mood and affect normal. Assessment and Plan: Perinephric abscess s/p PAD with subsequent exchange, repositioning and aspiration yesterda y. Leukocytosis with fevers overnight, but reports feeling better this morning. Continuing o n antibiotic therapy, managed by ID. Continue to flush catheter into abscess cavity TID with 10 cc NS. Will continue to monitor. Cyndee Jolley PA-C Vascular and Interventional Radiology Daron Ma MD - 04/17/2019 8:27 AM PDT [facility] Service: Hospitalist Progress Note Hospital Day: LOS: 6 days SUBJECTIVE Patient Summary: Transfer note Dr. Do:" Mr. Conrad is a 34 yr old man with chronic HCV infection presented at [facility] ED for 1 week for constant LLQ pain that radiates to the back and intermittent feverrs. He had leuko cytosis. CT abdomen showed findings concerning for left pyelonephritis with developing intr arenal abscess; large loculation with perinephric inflammatory changes consistent with an ab scess. Patient was transferred here for possible IR drainage. Patient underwent IR placement of drainage on 04/12/19. 20cc of purulent drainage was obtain. Drained fluid was + MRSA. I D was on board and has been managing antibiotic. " Events Overnight: 34-year-old male history of hepatitis C, IV drug abuse , admitted on 04/11/2019 with left f lank pain, CT scan showed 6.3 cm renal abscess, interventional radiology consulted, CT-guide d drainage , cultures growing MRSA, repeat CT scan, required repeat CT-guided drainage. This morning patient indicates feeling much improved, no fever no chills good appetite, goo d spirits Scheduled Medications DAPTOmycin 6 mg/kg Intravenous Q24H enoxaparin 40 mg Subcutaneous Daily nicotine 1 patch Transdermal Daily Continuous Infusions sodium chloride 0.9% PRN Medications acetaminophen, HYDROcodone-acetaminophen, HYDROmorphone, ibuprofen, ondansetron, polyethyle ne glycol, Potassium replacement - NON ICU AND Potassium AND potassium chloride AN D potassium chloride OBJECTIVE Vital Signs: BP 146/84 | Pulse 109 | Temp 36.6 C (97.9 F) (Oral) | Resp 20 | Ht 1.88 m (6' 2") | Wt 95.8 kg (211 lb 3.2 oz) | SpO2 96% | BMI 27.12 kg/m Patient Vitals for the past 24 hrs: BP Temp Temp src Pulse Resp SpO2 04/17/19 0726 146/84 36.6 C (97.9 F) Oral 109 20 96 % 04/17/19 0619 142/78 36.8 C (98.3 F) Oral 114 24 98 % 04/17/19 0530 157/74 (!) 38.1 C (100.5 F) Oral 123 20 98 % 04/17/19 0414 166/78 (!) 38.6 C (101.5 F) Oral 120 25 97 % 04/16/19 2338 150/81 36.6 C (97.8 F) Oral 82 20 100 % 04/16/19 1955 (!) 163/95 37.2 C (99 F) Oral 102 20 94 % 04/16/19 1848 150/66 37.4 C (99.3 F) Oral 80 20 96 % 04/16/19 1816 136/63 37.4 C (99.4 F) Oral 85 20 98 % 04/16/19 1746 152/70 94 97 % 04/16/19 1730 140/76 94 97 % 04/16/19 1711 100/65 111 97 % 04/16/19 1700 139/72 105 98 % 04/16/19 1646 151/69 94 99 % 04/16/19 1639 142/83 (!) 38.7 C (101.7 F) Axillary 98 24 99 % 04/16/19 1608 151/73 92 26 100 % 04/16/19 1606 90 100 % 04/16/19 1605 90 99 % 04/16/19 1604 90 99 % 04/16/19 1603 149/67 92 25 99 % 04/16/19 1602 90 100 % 04/16/19 1601 94 99 % 04/16/19 1600 92 99 % 04/16/19 1559 90 99 % 04/16/19 1558 150/70 88 24 99 % 04/16/19 1557 88 99 % 04/16/19 1556 88 99 % 04/16/19 1555 90 99 % 04/16/19 1554 86 99 % 04/16/19 1553 149/71 88 22 100 % 04/16/19 1552 86 100 % 04/16/19 1551 92 96 % 04/16/19 1550 86 95 % 04/16/19 1549 88 100 % 04/16/19 1548 158/70 86 14 99 % 04/16/19 1547 86 99 % 04/16/19 1543 148/76 86 99 % 04/16/19 1538 151/79 82 100 % 04/16/19 1533 142/74 04/16/19 1146 138/84 88 99 % 04/16/19 1145 82 (!) 79 % 04/16/19 1144 138/84 36.4 C (97.5 F) Oral 65 22 98 % 04/16/19 0834 126/65 72 98 % 04/16/19 0833 126/65 36.6 C (97.9 F) Axillary 71 20 98 % No intake or output data in the 24 hours ending 04/17/19 0827 Physical Exam Constitutional: He is oriented to person, place, and time. Looks well, calm cooperative HENT: Head: Normocephalic and atraumatic. Mouth/Throat: No oropharyngeal exudate. Eyes: Pupils are equal, round, and reactive to light. Conjunctivae are normal. No scleral i cterus. Neck: Normal range of motion. Cardiovascular: Normal rate and regular rhythm. No murmur heard. Pulmonary/Chest: Effort normal and breath sounds normal. He has no wheezes. He has no rales . Abdominal: Soft. + drain in place left flank with serosanguineous output Musculoskeletal: He exhibits no edema. Neurological: He is alert and oriented to person, place, and time. No cranial nerve deficit . Skin: Skin is warm. Nursing note and vitals reviewed. DATA Recent Results (from the past 24 hour(s)) Culture, Body Fluid Sterile Result Value Ref Range Special Requests LT KIDNEY DRAINAGE Special Requests Testing [place] [facility] [place] [address] Gram Stain Result 2+ WBC'S SEEN Gram Stain Result NO ORGANISMS SEEN Gram Stain Result Testing performed at [facility], [address] [place] [address] RESULT PENDING CBC with Differential Result Value Ref Range WBC 16.22 (H) 3.80 - 11.00 K/uL RBC 4.34 4.20 - 5.70 M/uL Hemoglobin 12.6 (L) 13.2 - 17.0 g/dL Hematocrit 37.0 (L) 39.0 - 50.0 % MCV 85.3 80.0 - 100.0 fl MCH 28.9 27.0 - 34.0 pg MCHC 33.9 32.0 - 35.5 g/dL RDW-SD 39.4 37 - 53 fl Platelet Count 273 150 - 400 K/uL MPV 9.4 fl Diff Type AUTOMATED % Neutrophils 82.53 % % Lymphocytes 7.87 % Monocyte % 9.02 % Eosinophils % 0.08 % Basophils % 0.50 % Neutrophils, Absolute 13.38 (H) 1.90 - 7.40 K/uL Absolute Lymphocytes 1.28 1.00 - 3.90 K/uL Absolute Monocytes 1.46 (H) 0.00 - 0.80 K/uL Eosinophils, Absolute 0.01 0.00 - 0.50 K/uL Basophils, Absolute 0.08 0.00 - 0.10 K/uL Basic Metabolic Panel Result Value Ref Range Na 136 135 - 145 mmol/L K 4.2 3.5 - 4.9 mmol/L Cl 99 99 - 109 mmol/L CO2 29 23 - 32 mmol/L Anion Gap 12 5 - 20 mmol/L Glucose 104 (H) 65 - 99 mg/dL BUN 8 8 - 25 mg/dL Creatinine 0.8 0.70 - 1.30 mg/dL BUN/Creatinine Ratio 10 Calcium 9.6 8.5 - 10.5 mg/dL Estimated GFR >60 >60 mL/min/1.73m2 IMAGES Recent Results (from the past 360 hour(s)) CT Guided Drain Abscess Narrative CT GUIDED LEFT PERINEPHRIC ABSCESS DRAINAGE CLINICAL INFORMATION: 34-year-old male with left perinephric abscess. COMPARISON: None. PROCEDURE: The risks, benefits and alternatives were discussed with the patient; consent was obtained and placed in the patient's chart. The risks included but were not limited to bleeding, infection, non target organ injury. The patient was placed in the CT scanner and imaging was obtained through the abdomen and pelvis. A reproducible target was demonstrated. The skin overlying the site of interest was localized and marked. The skin was sterilely prepped and draped in the usual fashion. Local lidocaine was administered in the skin and underlying tissues, and a tiny dermatotomy was made. Under CT guidance, a 18 gauge needle system was used to access the target. A wire was positioned through the needle system into the fluid collection. Serial dilatation was performed to the appropriate level and a 10 Spanish multipurpose drainage catheter was placed and secured to the skin under CT guidance. The patient tolerated the procedure well without complication. Conscious sedation was administered. The nurse administered fentanyl and Versed medications during the examination and monitored blood pressure, heart rate, and pulse oximeter. Physician intraservice time of 30 minutes. At least one of the following CT dose optimization techniques were used: Automated exposure control; Adjustment of mA and/or kV according to patient size; Use of iterative reconstruction technique. FINDINGS: CT identified the left perinephric abscess, which was selected for drainage. Intra procedural imaging confirmed appropriate catheter placement. Post procedure imaging showed no evidence for complication. Impression Successful CT-guided left perinephric abscess drainage. Signed by: Liza Morataya David Sign Date/Time: 04/13/2019 6:[address] Abdomen w Contrast Narrative CT ABDOMEN WITH CONTRAST CLINICAL INFORMATION: Follow-up renal abscess drainage. COMPARISON: CT GUIDED DRAIN ABSCESS (04/12/2019); PROCEDURE: Axial images through the abdomen after the administration of 100 mL Omnipaque 350 intravenous contrast. Multiplanar reconstructions. At least one of the following CT dose optimization techniques were used: Automated exposure control; Adjustment of mA and/or kV according to patient size; Use of iterative reconstruction technique. FINDINGS: LUNG BASES: No significant pulmonary abnormality. No pleural effusion or pneumothorax. ABDOMEN Liver and Biliary: Increased craniocaudal length of liver measuring 24.2 cm. Mild periportal edema. The gallbladder is partially distended. No biliary dilation. Pancreas, Spleen and Adrenals: Enlarged spleen measuring approximately 16.5 cm in craniocaudal length. Normal pancreas and both adrenals. Kidneys: The right kidney is normal in size and enhancement pattern. Enlarged edematous left kidney with pararenal edema. There is decreased enhancement in lower pole of the left kidney with a heterogeneous attenuation area measuring 6.3 x 4.7 x 4.8 cm, image 88/series 3, image 49/series 6. Additional smaller intrarenal area of heterogeneous attenuation in interpolar left kidney measuring 3.2 x 3.1 x 2.9 cm. There is marked infiltration of pararenal fat with thickening of anterior and posterior pararenal fascia. Percutaneous pigtail catheter in-situ in left posterior pararenal space. Bowel: No small bowel or colonic dilation or adjacent inflammation. Vessels: No significant abnormality in the aorta or its proximal branches. No significant abnormality in the portal veins, mesenteric veins or systemic veins. Lymph Nodes: Multiple enlarged retroperitoneal lymph nodes. The index left para-aortic lymph node measuring 1.4 cm, image 84/series 3, nonspecific, probably reactive. The index inter aortocaval lymph node measuring 1.6 cm, image 95/series 3. Peritoneum and Retroperitoneum: Small amount of fluid in left paracolic gutter. Retroperitoneal left pararenal fat infiltration with thickening of anterior and posterior pararenal fascia. No pneumoperitoneum. BODY WALL Soft Tissues: No bowel or inflamed fat containing hernia, mass or hemorrhage. Mildly elevated right dome of the diaphragm. Mild subcutaneous edema of the body wall. Small fat containing paraumbilical hernia. Bones: No acute fracture or vertebral end plate destruction. No lytic or blastic lesion. Moderate degenerative disc disease at L4-L5 and L5-S1. Multiple Schmorl nodes at L4-L5. Impression *Complicated acute left pyelonephritis with intrarenal abscess/phlegmon in lower pole of the left kidney measuring 6.3 x 4.7 x 4.8 cm, causing renal capsular bulge. *Additional area of focal pyelonephritis/small organized abscess or phlegmon in interpolar left kidney measuring 3.2 x 3.1 x 2.9 cm. Adjacent pigtail catheter in-situ in left posterior pararenal space. Interval decrease in size of the left pararenal abscess, status post percutaneous drainage. *Small amount of free fluid in left paracolic gutter. *Multiple enlarged retroperitoneal lymph nodes, nonspecific, probably reactive. *Hepatosplenomegaly. *Additional findings as detailed above. Signed by: Liza Zeng, Arnold Sign Date/Time: 04/15/2019 12:[address] Guided Drain Abscess Narrative CT GUIDED LEFT KIDNEY ABSCESS DRAINAGE CLINICAL INFORMATION: 34-year-old male with left renal abscess and perinephric abscess status post perinephric abscess drainage. Patient continues to have leukocytosis and intermittent fevers and drainage of the left intraparenchymal renal abscess is requested. COMPARISON: None. PROCEDURE: The risks, benefits and alternatives were discussed with the patient; consent was obtained and placed in the patient's chart. The risks included but were not limited to bleeding, infection, non target organ injury. The patient was placed in the CT scanner and imaging was obtained through the abdomen. A reproducible target was demonstrated. The skin overlying the site of interest was localized and marked. The skin was sterilely prepped and draped in the usual fashion. Local lidocaine was administered in the skin and underlying tissues. A wire was passed through the existing catheter into the perinephric abscess. This collection was in line with the intraparenchymal renal abscess. A new catheter with metal stiffener was passed over the wire, the wire were removed, and stylette introduced into the metal stiffener. The catheter was advanced as a unit into the intraparenchymal renal abscess. The inner stylet was removed, a wire was passed into the intra parenchymal abscess, and images acquired confirming positioning. Next, the metal stiffener was removed and the catheter advanced and formed over the wire. The position was confirmed with CT and the catheter was secured to the skin. The patient tolerated the procedure well without complication. Conscious sedation was administered. The nurse administered fentanyl medications during the examination and monitored blood pressure, heart rate, and pulse oximeter. Physician intraservice time of 30 minutes. At least one of the following CT dose optimization techniques were used: Automated exposure control; Adjustment of mA and/or kV according to patient size; Use of iterative reconstruction technique. FINDINGS: CT identified the intraparenchymal left renal abscess which was selected for drainage. Intra procedural imaging confirmed appropriate catheter placement. Post procedure imaging showed no evidence for complication. Impression Successful CT-guided left intraparenchymal renal abscess drainage. Signed by: Liza Morataya David Sign Date/Time: 04/17/2019 6:59 AM PROBLEM LIST Principal Problem: Kidney, perinephric abscess Active Problems: Pyelonephritis Tobacco abuse ASSESSMENT & PLAN Sepsis secondary to Left pyelonephritis, renal abscess (MRSA) S/p placement of drain 04/09/19, drain output appear minimal Repeat CT abdomen/pelvis still showed 2 intrarenal fluid collections -Repeat CT-guided drainage done 04/16/2019 Fluid culture + MRSA Vancomycin now changed to daptomycin Greatly appreciated ID's inputs Hypokalemia repleted Will continue to monitor and replace as necessary Nicontine use On nicotine patch DVT prophylaxis with lovenox Disposition: Pending Code Status: Full Code Daron Mendoza MD 04/17/2019 8:27 Dianne Mishra RN - 04/17/2019 4:21 AM PDT 04/17/19 0414 Vitals Temp (!) 38.6 C (101.5 F) Temp Source Oral Pulse 120 Heart Rate Source Monitor Resp 25 BP 166/78 MAP 111 mmHg BP Method Automatic BP Location Right arm SpO2 97 % MEWS Total Score (!) 6 Oxygen Therapy O2 Device room air Pain/Comfort Presence Of Pain complains of pain/discomfort Pain Rating (0-10): Rest 4 Phoned bedside nurse. Pt has been having spikes in temperature. At this time there is no co ncern for change in status. Ave Woodruff RN - 04/16/2019 7:26 PM PDTPt Tmax 101.7, pt medicated w/ 650 mg ty lenol. Pt vitals remained stable post-procedure. No other acute changes. End of shift chart check complete. Ave Herrera RN Electronically signed by Ave Herrera RN at 9 7:28 PM PDTLazara Briceño RN - 04/16/2019 4:19 PM PDTPatient tolerated procedure fairl y well. 10 F drain to L flank, dressing is clean, dry, and intact. Specimen sent to lab by CT staff. Report called to RN. Lazara Briceño RN avid Morataya MD - 04/16/2019 3:27 PM PDT Interventional Radiology Progress Note Patient Name: Timothy Conrad Date of : 1985 Consulting Provider: David Morataya MD, MD, PhD Interval History/Subjective: Timothy Conrad is a 34 y.o. male with perinephric abscess and parenchymal renal abscess demons trated on CT yesterday. Labs: 3 Day Labs: Recent Labs Lab 04/16/19 0549 04/15/19 0535 04/14/19 0537 04/13/19 0607 04/12/19 0513 WBC 13.62* 12.08* 14.25* 14.87* 18.08* HGB 11.7* 11.4* 12.2* 12.5* 13.2 HCT 34.2* 33.5* 35.9* 36.5* 38.6* PLT 240 207 210 216 207 NA 139 138 139 138 133* K 4.0 3.5 3.7 3.9 4.2 CL 104 105 105 104 101 CO2 29 28 28 25 26 BUN 9 10 7* 10 9 CALCIUM 9.3 8.6 9.1 9.0 9.1 MG 2.1 -- -- 1.8 1.9 PTT -- -- -- -- 33* INR -- -- -- -- 1.0 Pertinent Imaging/Procedures: Ct Abdomen W Contrast Result Date: 04/15/2019 CT ABDOMEN WITH CONTRAST CLINICAL INFORMATION: Follow-up renal abscess drainage. COMPARISON : CT GUIDED DRAIN ABSCESS (04/12/2019); PROCEDURE: Axial images through the abdomen after th e administration of 100 mL Omnipaque 350 intravenous contrast. Multiplanar reconstructions. At least one of the following CT dose optimization techniques were used: Automated exposure control; Adjustment of mA and/or kV according to patient size; Use of iterative reconstruct ion technique. FINDINGS: LUNG BASES: No significant pulmonary abnormality. No pleural effusi on or pneumothorax. ABDOMEN Liver and Biliary: Increased craniocaudal length of liver measur ing 24.2 cm. Mild periportal edema. The gallbladder is partially distended. No biliary di lation. Pancreas, Spleen and Adrenals: Enlarged spleen measuring approximately 16.5 cm in cr aniocaudal length. Normal pancreas and both adrenals. Kidneys: The right kidney is normal i n size and enhancement pattern. Enlarged edematous left kidney with pararenal edema. There is decreased enhancement in lower pole of the left kidney with a heterogeneous attenuation a germain measuring 6.3 x 4.7 x 4.8 cm, image 88/series 3, image 49/series 6. Additional smaller intrarenal area of heterogeneous attenuation in interpolar left kidney measuring 3.2 x 3.1 x 2.9 cm. There is marked infiltration of pararenal fat with thickening of anterior and post erior pararenal fascia. Percutaneous pigtail catheter in-situ in left posterior pararenal s pace. Bowel: No small bowel or colonic dilation or adjacent inflammation. Vessels: No signif icant abnormality in the aorta or its proximal branches. No significant abnormality in the p ortal veins, mesenteric veins or systemic veins. Lymph Nodes: Multiple enlarged retroperiton eal lymph nodes. The index left para-aortic lymph node measuring 1.4 cm, image 84/series 3, nonspecific, probably reactive. The index inter aortocaval lymph node measuring 1.6 cm, im age 95/series 3. Peritoneum and Retroperitoneum: Small amount of fluid in left paracolic gut ter. Retroperitoneal left pararenal fat infiltration with thickening of anterior and early childhood education coordinator ior pararenal fascia. No pneumoperitoneum. BODY WALL Soft Tissues: No bowel or inflamed fat containing hernia, mass or hemorrhage. Mildly elevated right dome of the diaphragm. Mild subcutaneous edema of the body wall. Small fat containing paraumbilical hernia. Bones: No a cute fracture or vertebral end plate destruction. No lytic or blastic lesion. Moderate dege nerative disc disease at L4-L5 and L5-S1. Multiple Schmorl nodes at L4-L5. *Complicated acute left pyelonephritis with intrarenal abscess/phlegmon in lower pole of th e left kidney measuring 6.3 x 4.7 x 4.8 cm, causing renal capsular bulge. *Additional area o f focal pyelonephritis/small organized abscess or phlegmon in interpolar left kidney measuri ng 3.2 x 3.1 x 2.9 cm. Adjacent pigtail catheter in-situ in left posterior pararenal space. Interval decrease in size of the left pararenal abscess, status post percutaneous drainage. *Small amount of free fluid in left paracolic gutter. *Multiple enlarged retroperitoneal lym ph nodes, nonspecific, probably reactive. *Hepatosplenomegaly. *Additional findings as detai led above. Signed by: Liza Zeng, Pushpender Sign Date/Time: 04/15/2019 12:[address] Guided Drain Abscess Result Date: 04/13/2019 CT GUIDED LEFT PERINEPHRIC ABSCESS DRAINAGE CLINICAL INFORMATION: 34-year-old male with lef t perinephric abscess. COMPARISON: None. PROCEDURE: The risks, benefits and alternatives wer e discussed with the patient; consent was obtained and placed in the patient's chart. The ri sks included but were not limited to bleeding, infection, non target organ injury. The patie nt was placed in the CT scanner and imaging was obtained through the abdomen and pelvis. A reproducible target was demonstrated. The skin overlying the site of interest was localized and marked. The skin was sterilely prepped and draped in the usual fashion. Local lidocaine was administered in the skin and underlying tissues, and a tiny dermatotomy was made. Under CT guidance, a 18 gauge needle system was used to access the target. A wire was positioned t hrough the needle system into the fluid collection. Serial dilatation was performed to the a ppropriate level and a 10 Spanish multipurpose drainage catheter was placed and secured to th e skin under CT guidance. The patient tolerated the procedure well without complication. Con scious sedation was administered. The nurse administered fentanyl and Versed medications du ring the examination and monitored blood pressure, heart rate, and pulse oximeter. Physician intraservice time of 30 minutes. At least one of the following CT dose optimization techniq ues were used: Automated exposure control; Adjustment of mA and/or kV according to patient s ize; Use of iterative reconstruction technique. FINDINGS: CT identified the left perinephric abscess, which was selected for drainage. Intra procedural imaging confirmed appropriate ca theter placement. Post procedure imaging showed no evidence for complication. Successful CT-guided left perinephric abscess drainage. Signed by: Liza Morataya David Sign Date/Time: 04/13/2019 6:34 PM Physical Examination: Vitals: 04/16/19 1144 BP: 138/84 Pulse: 65 Resp: 22 Temp: 36.4 C (97.5 F) Physical Exam Constitutional: He is oriented to person, place, and time and well-developed, well-nourishe d, and in no distress. HENT: Head: Normocephalic and atraumatic. Eyes: Pupils are equal, round, and reactive to light. Neck: Normal range of motion. Cardiovascular: Normal rate and regular rhythm. Pulmonary/Chest: Effort normal. Abdominal: Soft. Musculoskeletal: Normal range of motion. Neurological: He is alert and oriented to person, place, and time. GCS score is 15. Skin: Skin is warm and dry. Psychiatric: Mood and affect normal. Assessment and Plan: 34M w left perinephric and intraparenchymal renal abscesses. Persistent leukocytosis after perinephric abscess drainage. - Will plan for left renal abscess drain placement with CT guidance today. Electronically signed by: David Morataya MD 04/16/2019 15:27 Vascular and Interventional Radiology Juan Pereyra DO - 11:44 AM PDT [facility] Service: Infectious Diseases Progress note Hospital Day: LOS 5 Post-op Day: * No surgery found * Subjective Patient Summary: 34 y.o. male with significant past medical history of hepatitis C who pre sented on 04/11/2019 with left flank and left lower quadrant abdominal pain present for 1 we ek with intermittent fevers. The patient reports that the symptoms initially began with sylvie e mild scrotal discomfort and scrotal swelling that he thought was a hernia that would resol ve on its own. The patient reported needing to strain in order to urinate on the day of adm ission, and there were some episodes of pain with urination intermittently. The patient graham londono presented to the emergency department at [facility] in [place] where work-up included a CT scan revealing possible left renal abscess although difficult to exclu de malignancy. He was transferred here for further management. The patient was started emp irically on ceftriaxone. He has undergone CT-guided drain placement. CC: Renal abscess Chart reviewed: No new events. Subjective The patient reports that he still has significant pain on his left side. He denies any fev ers or chills. No nausea or vomiting. ROS No fever, chills sweats. No nausea, vomiting or diarrhea. No rashes or pruritis. No oral pa in. DAPTOmycin 6 mg/kg Intravenous Q24H enoxaparin 40 mg Subcutaneous Daily nicotine 1 patch Transdermal Daily PRN Medications: acetaminophen, HYDROcodone-acetaminophen, HYDROmorphone, ibuprofen, ondansetron, polyethyle ne glycol, Potassium replacement - NON ICU AND Potassium AND potassium chloride AN D potassium chloride Current Facilty-Administered PRN Medications Ordered in Epic Medication Dose Route Frequency Provider Last Rate Last Dose acetaminophen (TYLENOL) tablet 650 mg 650 mg Oral Q4H PRN David Calvin, DO 650 mg at 04/15/192045 HYDROcodone-acetaminophen (NORCO) 5-325 mg per tablet 1-2 tablet 1-2 tablet Oral Q4H P RN Teresita Do MD 2 tablet at 04/16/19 0229 HYDROmorphone (DILAUDID) injection 2 mg 2 mg Intravenous Q4H PRN Teresita Do MD ibuprofen (ADVIL, MOTRIN) tablet 600 mg 600 mg Oral Q6H PRN Teresita Do MD 600 mg at 04/16/19 0348 ondansetron (ZOFRAN) injection 4 mg 4 mg Intravenous Q4H PRN David Calvin DO polyethylene glycol (MIRALAX) powder 17 g 17 g Oral Daily PRN David Calvin DO 17 g at 04/15/192045 potassium chloride (KLOR-CON) ER tablet 20-40 mEq 20-40 mEq Oral Daily PRN Teresita hall MD And potassium chloride (KLOR-CON) packet 20-40 mEq 20-40 mEq Per G Tube Daily PRN Teresita Do MD Objective: Vital Signs: BP 126/65 | Pulse 71 | Temp 36.6 C (97.9 F) (Axillary) | Resp 20 | Ht 1.88 m (6' 2" ) | Wt 95.8 kg (211 lb 3.2 oz) | SpO2 98% | BMI 27.12 kg/m Temp: [36.6 C (97.9 F)-38 C (100.4 F)] 36.6 C (97.9 F) Pulse: [71-96] 71 Resp: [18-20] 20 BP: (126-144)/(65-71) 126/65 Exam: Const: Vitals reviewed. No acute distress Skin: No rashes, no edema ENT: No thrush. Lungs: CTAB, no rales or wheezes Heart: RRR, no murmur Abd: soft, NT, + bowel sounds Data: Recent Results (from the past 24 hour(s)) CBC with Differential Result Value Ref Range WBC 13.62 (H) 3.80 - 11.00 K/uL RBC 4.00 (L) 4.20 - 5.70 M/uL Hemoglobin 11.7 (L) 13.2 - 17.0 g/dL Hematocrit 34.2 (L) 39.0 - 50.0 % MCV 85.4 80.0 - 100.0 fl MCH 29.2 27.0 - 34.0 pg MCHC 34.2 32.0 - 35.5 g/dL RDW-SD 38.9 37 - 53 fl Platelet Count 240 150 - 400 K/uL MPV 9.7 fl Diff Type AUTOMATED % Neutrophils 70.23 % % Lymphocytes 16.70 % Monocyte % 11.85 % Eosinophils % 0.64 % Basophils % 0.58 % Neutrophils, Absolute 9.57 (H) 1.90 - 7.40 K/uL Absolute Lymphocytes 2.28 1.00 - 3.90 K/uL Absolute Monocytes 1.61 (H) 0.00 - 0.80 K/uL Eosinophils, Absolute 0.09 0.00 - 0.50 K/uL Basophils, Absolute 0.08 0.00 - 0.10 K/uL Basic Metabolic Panel Result Value Ref Range Na 139 135 - 145 mmol/L K 4.0 3.5 - 4.9 mmol/L Cl 104 99 - 109 mmol/L CO2 29 23 - 32 mmol/L Anion Gap 10 5 - 20 mmol/L Glucose 104 (H) 65 - 99 mg/dL BUN 9 8 - 25 mg/dL Creatinine 0.7 0.70 - 1.30 mg/dL BUN/Creatinine Ratio 13 Calcium 9.3 8.5 - 10.5 mg/dL Estimated GFR >60 >60 mL/min/1.73m2 Magnesium Result Value Ref Range Magnesium 2.1 1.7 - 2.4 mg/dL Microbiology: Urine culture collected on admission is pending. Culture collected during CT-guided drai n placement shows MRSA. Problem List: Principal Problem: Kidney, perinephric abscess Active Problems: Pyelonephritis Tobacco abuse Assessment / Recommendations: Pyelonephritis, perinephric abscess Appreciate CT-guided drain placement. Culture shows MRSA. The patient has had persisten t fevers, likely due to suboptimal vancomycin trough levels despite every 8 hour dosing, the refore switched to daptomycin on April 15 which has been well-tolerated so far. Baseline CPK unremarkable. Repeat CT scan showed that 1 of his 2 intrarenal collections is larger th an 5 cm, therefore await CT-guided renal abscess drain placement. Hepatitis C The patient has been recommended to undergo treatment in the past. We will need to obtain viral load and genotype to direct treatment. Code Status: Full Code Juan Tejada DO 04/16/19 Teresita Caba MD - 04/16 11:15 AM PDT [facility] Service: Hospitalist Progress Note Hospital Day: LOS: 5 days SUBJECTIVE Patient Summary: Mr. Conrad is a 34 yr old man with chronic HCV infection presented at [facility] ED for 1 week for constant LLQ pain that radiates to the back and intermittent feverrs. He had leuko cytosis. CT abdomen showed findings concerning for left pyelonephritis with developing intr arenal abscess; large loculation with perinephric inflammatory changes consistent with an ab scess. Patient was transferred here for possible IR drainage. Patient underwent IR placement of drainage on 04/12/19. 20cc of purulent drainage was obtain. Drained fluid was + MRSA. I D was on board and has been managing antibiotic. Events Overnight: Patient has been hemodynamically stable but continued to have intermittent fevers. CT abdo men and pelvis still showed lower pole abscess 6.3 x 4.7 x 4.8cm and additional smaller intr erenal abscess measuring 3.2x3.[address] Morataya was consulted back and plans for CT luis ded drainage today. Due to recurrent fever, ID has changed antibiotic to daptomycin. Patient admitted to being IVDU, stopped about 1 month ago; will obtain blood cultures from [facility]. Scheduled Medications DAPTOmycin 6 mg/kg Intravenous Q24H enoxaparin 40 mg Subcutaneous Daily nicotine 1 patch Transdermal Daily Continuous Infusions PRN Medications acetaminophen, HYDROcodone-acetaminophen, HYDROmorphone, ibuprofen, ondansetron, polyethyle ne glycol, Potassium replacement - NON ICU AND Potassium AND potassium chloride AN D potassium chloride OBJECTIVE Vital Signs: BP 126/65 | Pulse 71 | Temp 36.6 C (97.9 F) (Axillary) | Resp 20 | Ht 1.88 m (6' 2" ) | Wt 95.8 kg (211 lb 3.2 oz) | SpO2 98% | BMI 27.12 kg/m Patient Vitals for the past 24 hrs: BP Temp Temp src Pulse Resp SpO2 Weight 04/16/19 0833 126/65 36.6 C (97.9 F) Axillary 71 20 98 % 04/16/19 0315 140/66 37.2 C (99 F) Oral 84 20 98 % 95.8 kg (211 lb 3.2 oz) 04/15/19 2309 129/67 37.3 C (99.2 F) Oral 89 20 99 % 04/15/19 1938 132/71 (!) 38 C (100.4 F) Oral 96 19 98 % 04/15/19 1551 135/66 37.2 C (99 F) Oral 92 18 99 % 04/15/19 1147 144/70 37 C (98.6 F) Oral 80 18 99 % Intake/Output Summary (Last 24 hours) at 04/16/2019 1115 Last data filed at 04/16/2019 0330 Gross per 24 hour Intake 560 ml Output Net 560 ml Physical Exam Constitutional: He is oriented to person, place, and time. Young man, lying in bed, not in any respiratory distress or discomfort HENT: Head: Normocephalic and atraumatic. Eyes: Pupils are equal, round, and reactive to light. Conjunctivae are normal. Neck: Normal range of motion. No JVD present. Cardiovascular: Normal rate and regular rhythm. No murmur heard. Pulmonary/Chest: Effort normal and breath sounds normal. He has no wheezes. He has no rales . Abdominal: Soft. + drain in place left flank with minimal output + tenderness left LQ Musculoskeletal: He exhibits no edema. Lymphadenopathy: He has no cervical adenopathy. Neurological: He is alert and oriented to person, place, and time. No cranial nerve deficit . Skin: Skin is warm. DATA Recent Results (from the past 24 hour(s)) CBC with Differential Result Value Ref Range WBC 13.62 (H) 3.80 - 11.00 K/uL RBC 4.00 (L) 4.20 - 5.70 M/uL Hemoglobin 11.7 (L) 13.2 - 17.0 g/dL Hematocrit 34.2 (L) 39.0 - 50.0 % MCV 85.4 80.0 - 100.0 fl MCH 29.2 27.0 - 34.0 pg MCHC 34.2 32.0 - 35.5 g/dL RDW-SD 38.9 37 - 53 fl Platelet Count 240 150 - 400 K/uL MPV 9.7 fl Diff Type AUTOMATED % Neutrophils 70.23 % % Lymphocytes 16.70 % Monocyte % 11.85 % Eosinophils % 0.64 % Basophils % 0.58 % Neutrophils, Absolute 9.57 (H) 1.90 - 7.40 K/uL Absolute Lymphocytes 2.28 1.00 - 3.90 K/uL Absolute Monocytes 1.61 (H) 0.00 - 0.80 K/uL Eosinophils, Absolute 0.09 0.00 - 0.50 K/uL Basophils, Absolute 0.08 0.00 - 0.10 K/uL Basic Metabolic Panel Result Value Ref Range Na 139 135 - 145 mmol/L K 4.0 3.5 - 4.9 mmol/L Cl 104 99 - 109 mmol/L CO2 29 23 - 32 mmol/L Anion Gap 10 5 - 20 mmol/L Glucose 104 (H) 65 - 99 mg/dL BUN 9 8 - 25 mg/dL Creatinine 0.7 0.70 - 1.30 mg/dL BUN/Creatinine Ratio 13 Calcium 9.3 8.5 - 10.5 mg/dL Estimated GFR >60 >60 mL/min/1.73m2 Magnesium Result Value Ref Range Magnesium 2.1 1.7 - 2.4 mg/dL IMAGES Recent Results (from the past 360 hour(s)) CT Guided Drain Abscess Narrative CT GUIDED LEFT PERINEPHRIC ABSCESS DRAINAGE CLINICAL INFORMATION: 34-year-old male with left perinephric abscess. COMPARISON: None. PROCEDURE: The risks, benefits and alternatives were discussed with the patient; consent was obtained and placed in the patient's chart. The risks included but were not limited to bleeding, infection, non target organ injury. The patient was placed in the CT scanner and imaging was obtained through the abdomen and pelvis. A reproducible target was demonstrated. The skin overlying the site of interest was localized and marked. The skin was sterilely prepped and draped in the usual fashion. Local lidocaine was administered in the skin and underlying tissues, and a tiny dermatotomy was made. Under CT guidance, a 18 gauge needle system was used to access the target. A wire was positioned through the needle system into the fluid collection. Serial dilatation was performed to the appropriate level and a 10 Spanish multipurpose drainage catheter was placed and secured to the skin under CT guidance. The patient tolerated the procedure well without complication. Conscious sedation was administered. The nurse administered fentanyl and Versed medications during the examination and monitored blood pressure, heart rate, and pulse oximeter. Physician intraservice time of 30 minutes. At least one of the following CT dose optimization techniques were used: Automated exposure control; Adjustment of mA and/or kV according to patient size; Use of iterative reconstruction technique. FINDINGS: CT identified the left perinephric abscess, which was selected for drainage. Intra procedural imaging confirmed appropriate catheter placement. Post procedure imaging showed no evidence for complication. Impression Successful CT-guided left perinephric abscess drainage. Signed by: Liza Morataya, Sign Date/Time: 04/13/2019 6:[address] Abdomen w Contrast Narrative CT ABDOMEN WITH CONTRAST CLINICAL INFORMATION: Follow-up renal abscess drainage. COMPARISON: CT GUIDED DRAIN ABSCESS (04/12/2019); PROCEDURE: Axial images through the abdomen after the administration of 100 mL Omnipaque 350 intravenous contrast. Multiplanar reconstructions. At least one of the following CT dose optimization techniques were used: Automated exposure control; Adjustment of mA and/or kV according to patient size; Use of iterative reconstruction technique. FINDINGS: LUNG BASES: No significant pulmonary abnormality. No pleural effusion or pneumothorax. ABDOMEN Liver and Biliary: Increased craniocaudal length of liver measuring 24.2 cm. Mild periportal edema. The gallbladder is partially distended. No biliary dilation. Pancreas, Spleen and Adrenals: Enlarged spleen measuring approximately 16.5 cm in craniocaudal length. Normal pancreas and both adrenals. Kidneys: The right kidney is normal in size and enhancement pattern. Enlarged edematous left kidney with pararenal edema. There is decreased enhancement in lower pole of the left kidney with a heterogeneous attenuation area measuring 6.3 x 4.7 x 4.8 cm, image 88/series 3, image 49/series 6. Additional smaller intrarenal area of heterogeneous attenuation in interpolar left kidney measuring 3.2 x 3.1 x 2.9 cm. There is marked infiltration of pararenal fat with thickening of anterior and posterior pararenal fascia. Percutaneous pigtail catheter in-situ in left posterior pararenal space. Bowel: No small bowel or colonic dilation or adjacent inflammation. Vessels: No significant abnormality in the aorta or its proximal branches. No significant abnormality in the portal veins, mesenteric veins or systemic veins. Lymph Nodes: Multiple enlarged retroperitoneal lymph nodes. The index left para-aortic lymph node measuring 1.4 cm, image 84/series 3, nonspecific, probably reactive. The index inter aortocaval lymph node measuring 1.6 cm, image 95/series 3. Peritoneum and Retroperitoneum: Small amount of fluid in left paracolic gutter. Retroperitoneal left pararenal fat infiltration with thickening of anterior and posterior pararenal fascia. No pneumoperitoneum. BODY WALL Soft Tissues: No bowel or inflamed fat containing hernia, mass or hemorrhage. Mildly elevated right dome of the diaphragm. Mild subcutaneous edema of the body wall. Small fat containing paraumbilical hernia. Bones: No acute fracture or vertebral end plate destruction. No lytic or blastic lesion. Moderate degenerative disc disease at L4-L5 and L5-S1. Multiple Schmorl nodes at L4-L5. Impression *Complicated acute left pyelonephritis with intrarenal abscess/phlegmon in lower pole of the left kidney measuring 6.3 x 4.7 x 4.8 cm, causing renal capsular bulge. *Additional area of focal pyelonephritis/small organized abscess or phlegmon in interpolar left kidney measuring 3.2 x 3.1 x 2.9 cm. Adjacent pigtail catheter in-situ in left posterior pararenal space. Interval decrease in size of the left pararenal abscess, status post percutaneous drainage. *Small amount of free fluid in left paracolic gutter. *Multiple enlarged retroperitoneal lymph nodes, nonspecific, probably reactive. *Hepatosplenomegaly. *Additional findings as detailed above. Signed by: Liza Zeng Pushpender Sign Date/Time: 04/15/2019 12:59 PM PROBLEM LIST Principal Problem: Kidney, perinephric abscess Active Problems: Pyelonephritis Tobacco abuse ASSESSMENT & PLAN Left renal abscess S/p placement of drain 04/09/19, drain output appear minimal; no return after flushing Repeat CT abdomen/pelvis still showed 2 intrarenal fluid collections Greatly appreciate IR's help, plans for CT guided drainage today Fluid culture + MRSA + fever spikes, Tmax 38C Vancomycin now changed to daptomycin Greatly appreciated ID's inputs Hx of IVDU, will obtain blood cultures from [facility]; if +m, will repeat blood culture s today and consider 2DEcho as well Continue to trend wbc Consider hypovolemic hyponatremia resolved Will continue to monitor Hypokalemia repleted Will continue to monitor and replace as necessary Nicontine use On nicotine patch DVT prophylaxis with lovenox Disposition: Pending Code Status: Full Code Teresita Do MD 04/16/2019 11:15 Juan Pereyra DO - 04/15 10:07 AM PDT [facility] Service: Infectious Diseases Progress note Hospital Day: LOS 4 Post-op Day: * No surgery found * Subjective Patient Summary: 34 y.o. male with significant past medical history of hepatitis C who pre sented on 04/11/2019 with left flank and left lower quadrant abdominal pain present for 1 we ek with intermittent fevers. The patient reports that the symptoms initially began with sylvie e mild scrotal discomfort and scrotal swelling that he thought was a hernia that would resol ve on its own. The patient reported needing to strain in order to urinate on the day of adm ission, and there were some episodes of pain with urination intermittently. The patient graham londono presented to the emergency department at [facility] in [place] where work-up included a CT scan revealing possible left renal abscess although difficult to exclu de malignancy. He was transferred here for further management. The patient was started emp irically on ceftriaxone. He has undergone CT-guided drain placement. CC: Renal abscess Chart reviewed: No new events. Subjective The patient reports that he is feeling better, but still has some pain in the left side. H e denies any nausea, vomiting, fevers or chills. No difficulty urinating. ROS No fever, chills sweats. No nausea, vomiting or diarrhea. No rashes or pruritis. No oral pa in. DAPTOmycin 6 mg/kg Intravenous Q24H enoxaparin 40 mg Subcutaneous Daily nicotine 1 patch Transdermal Daily PRN Medications: acetaminophen, HYDROcodone-acetaminophen, ibuprofen, ondansetron, polyethylene glycol, Pota ssium replacement - NON ICU AND [START ON 04/16/2019] Potassium AND potassium chlori de AND potassium chloride Current Facilty-Administered PRN Medications Ordered in Epic Medication Dose Route Frequency Provider Last Rate Last Dose acetaminophen (TYLENOL) tablet 650 mg 650 mg Oral Q4H PRN David Foxen, DO 650 mg at 04/12/19 1654 HYDROcodone-acetaminophen (NORCO) 5-325 mg per tablet 1-2 tablet 1-2 tablet Oral Q4H P RN Teresita Do MD 2 tablet at 04/15/19 0833 ibuprofen (ADVIL, MOTRIN) tablet 600 mg 600 mg Oral Q6H PRN Teresita Do MD 600 mg at 04/14/19 1715 ondansetron (ZOFRAN) injection 4 mg 4 mg Intravenous Q4H PRN David Calvin, DO polyethylene glycol (MIRALAX) powder 17 g 17 g Oral Daily PRN David Foxen, DO 17 g at 04/14/19 2157 potassium chloride (KLOR-CON) ER tablet 20-40 mEq 20-40 mEq Oral Daily PRN Teresita hall MD And potassium chloride (KLOR-CON) packet 20-40 mEq 20-40 mEq Per G Tube Daily PRN Teresita Do MD Objective: Vital Signs: BP 119/59 | Pulse 81 | Temp 37 C (98.6 F) (Oral) | Resp 18 | Ht 1.88 m (6' 2") | W t 95.4 kg (210 lb 5.1 oz) | SpO2 98% | BMI 27.00 kg/m Temp: [36.5 C (97.7 F)-39.3 C (102.8 F)] 37 C (98.6 F) Pulse: [78-93] 81 Resp: [18-22] 18 BP: (119-150)/(59-74) 119/59 Exam: Const: Vitals reviewed. No acute distress Skin: No rashes, no edema ENT: No thrush. Lungs: CTAB, no rales or wheezes Heart: RRR, no murmur Abd: soft, NT, + bowel sounds Data: Recent Results (from the past 24 hour(s)) Vancomycin, Trough Result Value Ref Range Vancomycin, Trough 9.5 (L) 10 - 20 ug/mL CBC with Differential Result Value Ref Range WBC 12.08 (H) 3.80 - 11.00 K/uL RBC 3.95 (L) 4.20 - 5.70 M/uL Hemoglobin 11.4 (L) 13.2 - 17.0 g/dL Hematocrit 33.5 (L) 39.0 - 50.0 % MCV 84.7 80.0 - 100.0 fl MCH 28.9 27.0 - 34.0 pg MCHC 34.2 32.0 - 35.5 g/dL RDW-SD 39.8 37 - 53 fl Platelet Count 207 150 - 400 K/uL MPV 10.1 fl Diff Type AUTOMATED % Neutrophils 67.76 % % Lymphocytes 20.03 % Monocyte % 10.91 % Eosinophils % 0.95 % Basophils % 0.35 % Neutrophils, Absolute 8.19 (H) 1.90 - 7.40 K/uL Absolute Lymphocytes 2.42 1.00 - 3.90 K/uL Absolute Monocytes 1.32 (H) 0.00 - 0.80 K/uL Eosinophils, Absolute 0.12 0.00 - 0.50 K/uL Basophils, Absolute 0.04 0.00 - 0.10 K/uL Basic Metabolic Panel Result Value Ref Range Na 138 135 - 145 mmol/L K 3.5 3.5 - 4.9 mmol/L Cl 105 99 - 109 mmol/L CO2 28 23 - 32 mmol/L Anion Gap 9 5 - 20 mmol/L Glucose 92 65 - 99 mg/dL BUN 10 8 - 25 mg/dL Creatinine 0.7 0.70 - 1.30 mg/dL BUN/Creatinine Ratio 14 Calcium 8.6 8.5 - 10.5 mg/dL Estimated GFR >60 >60 mL/min/1.73m2 Microbiology: Urine culture collected on admission is pending. Culture collected during CT-guided drai n placement shows MRSA. Problem List: Principal Problem: Kidney, perinephric abscess Active Problems: Pyelonephritis Tobacco abuse Assessment / Recommendations: Pyelonephritis, perinephric abscess Appreciate CT-guided drain placement. Culture shows MRSA. The patient has had persisten t fevers, likely due to suboptimal vancomycin trough levels despite every 8 hour dosing. I will switch to daptomycin today and monitor for improvement. Check baseline CPK level. Rep eat CT scan to assess adequacy of drainage. Hepatitis C The patient has been recommended to undergo treatment in the past. We will need to obtain viral load and genotype to direct treatment. Code Status: Full Code Juan Tejada DO 04/15/19 Teresita Caba MD - 04/15 6:23 AM PDT [facility] Service: Hospitalist Progress Note Hospital Day: LOS: 4 days SUBJECTIVE Patient Summary: Mr. Conrad is a 34 yr old man with chronic HCV infection, presented at [facility] ED for 1 week for constant LLQ pain that radiates to the back and intermittent feverrs. He had leuk ocytosis. CT abdomen showed findings concerning for left pyelonephritis with developing int rarenal abscess; large loculation with perinephric inflammatory changes consistent with an a bscess. Patient was transferred here for possible IR drainage. Patient underwent IR placemen t of drainage on 04/12/19. 20cc of purulent drainage was obtain. ID was consulted. GS of flu id was + MRSA. Events Overnight: Patient has been stable overnight. Patient continues to have intermittent fever,Tmax 102.8 over the last 24hours. Vancomycin was just started yesterday 04/14/19. Per nursing staff the drain has not much output with only 20cc over the last 48hours. Yesterday about 20cc saline was flushed into the catheter, w/out return. He has no complaint today, left back and LLQ pain improving and adequately controlled by PO meds. Scheduled Medications enoxaparin 40 mg Subcutaneous Daily nicotine 1 patch Transdermal Daily vancomycin 15 mg/kg Intravenous Q8H vancomycin per pharmacy Other Pharmacy Consult Continuous Infusions PRN Medications acetaminophen, HYDROcodone-acetaminophen, ibuprofen, ondansetron, polyethylene glycol OBJECTIVE Vital Signs: BP 121/60 | Pulse 80 | Temp 36.9 C (98.4 F) (Oral) | Resp 19 | Ht 1.88 m (6' 2") | Wt 95.4 kg (210 lb 5.1 oz) | SpO2 99% | BMI 27.00 kg/m Patient Vitals for the past 24 hrs: BP Temp Temp src Pulse Resp SpO2 Weight 04/15/19 0319 121/60 36.9 C (98.4 F) Oral 80 19 99 % 95.4 kg (210 lb 5.1 oz) 04/14/19 2355 130/67 36.5 C (97.7 F) Oral 78 19 100 % 04/14/19 1923 150/70 36.8 C (98.3 F) Oral 81 20 100 % 04/14/19 1722 (!) 39.3 C (102.8 F) 04/14/19 1535 138/70 (!) 38.7 C (101.7 F) Axillary 93 22 98 % 04/14/19 1115 124/74 36.8 C (98.2 F) Oral 82 18 98 % 04/14/19 0741 131/72 36.7 C (98 F) Oral 76 18 98 % Intake/Output Summary (Last 24 hours) at 04/15/2019 0623 Last data filed at 04/15/2019 0445 Gross per 24 hour Intake 1170 ml Output Net 1170 ml Physical Exam Constitutional: He is oriented to person, place, and time. Young man, lying in bed, not in any respiratory distress or discomfort HENT: Head: Normocephalic and atraumatic. Eyes: Pupils are equal, round, and reactive to light. Conjunctivae are normal. Neck: Normal range of motion. No JVD present. Cardiovascular: Normal rate and regular rhythm. No murmur heard. Pulmonary/Chest: Effort normal and breath sounds normal. He has no wheezes. He has no rales . Abdominal: Soft. + drain in place left flank with minimal output Musculoskeletal: He exhibits no edema. Lymphadenopathy: He has no cervical adenopathy. Neurological: He is alert and oriented to person, place, and time. No cranial nerve deficit . Skin: Skin is warm. DATA Recent Results (from the past 24 hour(s)) Vancomycin, Trough Result Value Ref Range Vancomycin, Trough 9.5 (L) 10 - 20 ug/mL IMAGES Recent Results (from the past 360 hour(s)) CT Guided Drain Abscess Narrative CT GUIDED LEFT PERINEPHRIC ABSCESS DRAINAGE CLINICAL INFORMATION: 34-year-old male with left perinephric abscess. COMPARISON: None. PROCEDURE: The risks, benefits and alternatives were discussed with the patient; consent was obtained and placed in the patient's chart. The risks included but were not limited to bleeding, infection, non target organ injury. The patient was placed in the CT scanner and imaging was obtained through the abdomen and pelvis. A reproducible target was demonstrated. The skin overlying the site of interest was localized and marked. The skin was sterilely prepped and draped in the usual fashion. Local lidocaine was administered in the skin and underlying tissues, and a tiny dermatotomy was made. Under CT guidance, a 18 gauge needle system was used to access the target. A wire was positioned through the needle system into the fluid collection. Serial dilatation was performed to the appropriate level and a 10 Spanish multipurpose drainage catheter was placed and secured to the skin under CT guidance. The patient tolerated the procedure well without complication. Conscious sedation was administered. The nurse administered fentanyl and Versed medications during the examination and monitored blood pressure, heart rate, and pulse oximeter. Physician intraservice time of 30 minutes. At least one of the following CT dose optimization techniques were used: Automated exposure control; Adjustment of mA and/or kV according to patient size; Use of iterative reconstruction technique. FINDINGS: CT identified the left perinephric abscess, which was selected for drainage. Intra procedural imaging confirmed appropriate catheter placement. Post procedure imaging showed no evidence for complication. Impression Successful CT-guided left perinephric abscess drainage. Signed by: Liza Morataya David Sign Date/Time: 04/13/2019 6:34 PM PROBLEM LIST Principal Problem: Kidney, perinephric abscess Active Problems: Pyelonephritis Tobacco abuse ASSESSMENT & PLAN Left renal abscess S/p placement of drain 04/09/19, drain output appear minimal Greatly appreciate IR's help, noted recommendations; plan for repeat CT abdomen and pelvis Will discuss with IR in am regarding poor functioning of drain Fluid culture + MRSA Cefepime d/franci, currently on vancomycin Greatly appreciated ID's inputs Continue to trend wbc Consider hypovolemic hyponatremia resolved Will continue to monitor Hypokalemia repleted Will continue to monitor and replace as necessary Nicontine use On nicotine patch DVT prophylaxis with lovenox Disposition: Pending Code Status: Full Code Teresita Do MD 04/15/2019 6:23 Yumi Shearer PharmD - 04/14/2019 8:01 PM PDT Vancomycin Monitoring Day 2 Serum creatinine: 0.7 mg/dL 04/14/19 0537 Estimated creatinine clearance: 170 mL/min WBC = 14.25 K/uL Vancomycin, Trough Date Value Ref Range Status 04/14/2019 9.5 (L) 10 - 20 ug/mL Final Comment: 15 to 20 ug/mL for meningitis, osteomyelitis, endocarditis, sepsis, or healthcare associated pneumonia, or an PATRICK equal to or greater than 1.0 ug/mL [place] [facility] [place] [place] [id number] Drawn at 1850 on 04/14 (Goal 10-20 mcg/mL) Trough subtherapeutic. Plan per protocol: Change vancomycin to 1500 mg Q8H Daily level while on Q8H frequency Next Trough Level due: 04/15/2019 @ 1930 04/14/2019 19:49 Pharmacist: YUMI MCLEOD PharmD Juan Pereyra DO - 1 9:34 AM PDT [facility] Service: Infectious Diseases Progress note Hospital Day: LOS 3 Post-op Day: * No surgery found * Subjective Patient Summary: 34 y.o. male with significant past medical history of hepatitis C who pre sented on 04/11/2019 with left flank and left lower quadrant abdominal pain present for 1 we ek with intermittent fevers. The patient reports that the symptoms initially began with sylvie e mild scrotal discomfort and scrotal swelling that he thought was a hernia that would resol ve on its own. The patient reported needing to strain in order to urinate on the day of adm ission, and there were some episodes of pain with urination intermittently. The patient graham londono presented to the emergency department at [facility] [place] in [place] where work-up included a CT scan revealing possible left renal abscess although difficult to exclu de malignancy. He was transferred here for further management. The patient was started emp irically on ceftriaxone. He has undergone CT-guided drain placement. CC: Renal abscess Chart reviewed: No new events. Subjective The patient reports that he feels much better overall today. He reports that his left flan k pain continues to improve. Drain remains in place. ROS No fever, chills sweats. No nausea, vomiting or diarrhea. No rashes or pruritis. No oral pa in. cefepime 2 g Intravenous 2 times per day enoxaparin 40 mg Subcutaneous Daily nicotine 1 patch Transdermal Daily vancomycin 1,250 mg Intravenous Q8H vancomycin per pharmacy Other Pharmacy Consult PRN Medications: acetaminophen, HYDROcodone-acetaminophen, ibuprofen, ondansetron, polyethylene glycol Current Facilty-Administered PRN Medications Ordered in Epic Medication Dose Route Frequency Provider Last Rate Last Dose acetaminophen (TYLENOL) tablet 650 mg 650 mg Oral Q4H PRN David Calvin, DO 650 mg at 04/12/19 1654 HYDROcodone-acetaminophen (NORCO) 5-325 mg per tablet 1-2 tablet 1-2 tablet Oral Q4H P RN Teresita Do MD 2 tablet at 04/14/19 0825 ibuprofen (ADVIL, MOTRIN) tablet 600 mg 600 mg Oral Q6H PRN Teresita Do MD 600 mg at 04/14/19 0221 ondansetron (ZOFRAN) injection 4 mg 4 mg Intravenous Q4H PRN David Calvin, polyethylene glycol (MIRALAX) powder 17 g 17 g Oral Daily PRN David Calvin, DO 17 g at 04/13/192013 Objective: Vital Signs: BP 131/72 | Pulse 76 | Temp 36.7 C (98 F) (Oral) | Resp 18 | Ht 1.88 m (6' 2") | W t 94.6 kg (208 lb 8.9 oz) | SpO2 98% | BMI 26.78 kg/m Temp: [36.7 C (98 F)-38.7 C (101.6 F)] 36.7 C (98 F) Pulse: [76-97] 76 Resp: [18-24] 18 BP: (124-154)/(63-89) 131/72 Exam: Const: Vitals reviewed. No acute distress Skin: No rashes, no edema ENT: No thrush. Lungs: CTAB, no rales or wheezes Heart: RRR, no murmur Abd: soft, NT, + bowel sounds Data: Recent Results (from the past 24 hour(s)) CBC with Differential Result Value Ref Range WBC 14.25 (H) 3.80 - 11.00 K/uL RBC 4.22 4.20 - 5.70 M/uL Hemoglobin 12.2 (L) 13.2 - 17.0 g/dL Hematocrit 35.9 (L) 39.0 - 50.0 % MCV 85.2 80.0 - 100.0 fl MCH 29.0 27.0 - 34.0 pg MCHC 34.1 32.0 - 35.5 g/dL RDW-SD 39.4 37 - 53 fl Platelet Count 210 150 - 400 K/uL MPV 10.3 fl Diff Type AUTOMATED % Neutrophils 71.53 % % Lymphocytes 16.93 % Monocyte % 10.97 % Eosinophils % 0.31 % Basophils % 0.26 % Neutrophils, Absolute 10.20 (H) 1.90 - 7.40 K/uL Absolute Lymphocytes 2.41 1.00 - 3.90 K/uL Absolute Monocytes 1.56 (H) 0.00 - 0.80 K/uL Eosinophils, Absolute 0.04 0.00 - 0.50 K/uL Basophils, Absolute 0.04 0.00 - 0.10 K/uL Basic Metabolic Panel Result Value Ref Range Na 139 135 - 145 mmol/L K 3.7 3.5 - 4.9 mmol/L Cl 105 99 - 109 mmol/L CO2 28 23 - 32 mmol/L Anion Gap 10 5 - 20 mmol/L Glucose 95 65 - 99 mg/dL BUN 7 (L) 8 - 25 mg/dL Creatinine 0.7 0.70 - 1.30 mg/dL BUN/Creatinine Ratio 10 Calcium 9.1 8.5 - 10.5 mg/dL Estimated GFR >60 >60 mL/min/1.73m2 Microbiology: Urine culture collected on admission is pending. Culture collected during CT-guided drai n placement shows staph aureus, susceptibility pending. Imaging: No results found. Problem List: Principal Problem: Kidney, perinephric abscess Active Problems: Pyelonephritis Tobacco abuse Assessment / Recommendations: Pyelonephritis, perinephric abscess Appreciate CT-guided drain placement. Culture shows staph aureus, susceptibility pending . Cefepime can be discontinued. Continue vancomycin for now while awaiting final susceptib ility. Hepatitis C The patient has been recommended to undergo treatment in the past. We will need to obtain viral load and genotype to direct treatment. Code Status: Full Code Juan Tejada DO 04/14/19 Teresita Caba MD - 04/14 9:18 AM PDT [facility] Service: Hospitalist Progress Note Hospital Day: LOS: 3 days SUBJECTIVE Patient Summary: Mr. Conrad is a 34 yr old man with chronic HCV infection, presented at [facility] ED for 1 week for constant LLQ pain that radiates to the back and intermittent feverrs. He had leuk ocytosis. CT abdomen showed findings concerning for left pyelonephritis with developing int rarenal abscess; large loculation with perinephric inflammatory changes consistent with an a bscess. Patient was transferred here for possible IR drainage. Patient underwent IR placemen t of drainage on 04/12/19. 20cc of purulent drainage was obtain. ID was consulted and recomm ended to continue ceftriaxone. GS of fluid was + S.aureus, pending sensitivity Events Overnight: Patient has been stable overnight. Tmax 101.6 last night. He has no complaint today, left b ack and LLQ pain improving and adequately controlled by PO meds. Scheduled Medications cefepime 2 g Intravenous 2 times per day enoxaparin 40 mg Subcutaneous Daily nicotine 1 patch Transdermal Daily vancomycin 1,250 mg Intravenous Q8H vancomycin per pharmacy Other Pharmacy Consult Continuous Infusions sodium chloride 0.9% 75 mL/hr at 04/14/19 0221 PRN Medications acetaminophen, HYDROcodone-acetaminophen, ibuprofen, ondansetron, polyethylene glycol OBJECTIVE Vital Signs: BP 131/72 | Pulse 76 | Temp 36.7 C (98 F) (Oral) | Resp 18 | Ht 1.88 m (6' 2") | W t 94.6 kg (208 lb 8.9 oz) | SpO2 98% | BMI 26.78 kg/m Patient Vitals for the past 24 hrs: BP Temp Temp src Pulse Resp SpO2 04/14/19 0741 131/72 36.7 C (98 F) Oral 76 18 98 % 04/14/19 0339 124/70 36.7 C (98.1 F) Oral 77 20 98 % 04/13/19 2330 147/71 37.6 C (99.6 F) Oral 97 24 98 % 04/13/19 1941 143/63 (!) 38.7 C (101.6 F) Oral 97 20 95 % 04/13/19 1542 154/89 37.9 C (100.3 F) Oral 96 22 97 % 04/13/19 1200 36.9 C (98.5 F) 04/13/19 1125 145/85 37.5 C (99.5 F) Oral 88 24 96 % Intake/Output Summary (Last 24 hours) at 04/14/2019 0918 Last data filed at 04/14/2019 0528 Gross per 24 hour Intake 460 ml Output 1295 ml Net -835 ml Physical Exam Constitutional: He is oriented to person, place, and time. Young man, sitting up on the bed, not in any respiratory distress or discomfort HENT: Head: Normocephalic and atraumatic. Eyes: Pupils are equal, round, and reactive to light. Conjunctivae are normal. Neck: Normal range of motion. No JVD present. Cardiovascular: Normal rate and regular rhythm. No murmur heard. Pulmonary/Chest: Effort normal and breath sounds normal. He has no wheezes. He has no rales . Abdominal: Soft. + drain in place left flank with minimal output Musculoskeletal: He exhibits no edema. Lymphadenopathy: He has no cervical adenopathy. Neurological: He is alert and oriented to person, place, and time. No cranial nerve deficit . Skin: Skin is warm. DATA Recent Results (from the past 24 hour(s)) CBC with Differential Result Value Ref Range WBC 14.25 (H) 3.80 - 11.00 K/uL RBC 4.22 4.20 - 5.70 M/uL Hemoglobin 12.2 (L) 13.2 - 17.0 g/dL Hematocrit 35.9 (L) 39.0 - 50.0 % MCV 85.2 80.0 - 100.0 fl MCH 29.0 27.0 - 34.0 pg MCHC 34.1 32.0 - 35.5 g/dL RDW-SD 39.4 37 - 53 fl Platelet Count 210 150 - 400 K/uL MPV 10.3 fl Diff Type AUTOMATED % Neutrophils 71.53 % % Lymphocytes 16.93 % Monocyte % 10.97 % Eosinophils % 0.31 % Basophils % 0.26 % Neutrophils, Absolute 10.20 (H) 1.90 - 7.40 K/uL Absolute Lymphocytes 2.41 1.00 - 3.90 K/uL Absolute Monocytes 1.56 (H) 0.00 - 0.80 K/uL Eosinophils, Absolute 0.04 0.00 - 0.50 K/uL Basophils, Absolute 0.04 0.00 - 0.10 K/uL Basic Metabolic Panel Result Value Ref Range Na 139 135 - 145 mmol/L K 3.7 3.5 - 4.9 mmol/L Cl 105 99 - 109 mmol/L CO2 28 23 - 32 mmol/L Anion Gap 10 5 - 20 mmol/L Glucose 95 65 - 99 mg/dL BUN 7 (L) 8 - 25 mg/dL Creatinine 0.7 0.70 - 1.30 mg/dL BUN/Creatinine Ratio 10 Calcium 9.1 8.5 - 10.5 mg/dL Estimated GFR >60 >60 mL/min/1.73m2 IMAGES Recent Results (from the past 360 hour(s)) CT Guided Drain Abscess Narrative CT GUIDED LEFT PERINEPHRIC ABSCESS DRAINAGE CLINICAL INFORMATION: 34-year-old male with left perinephric abscess. COMPARISON: None. PROCEDURE: The risks, benefits and alternatives were discussed with the patient; consent was obtained and placed in the patient's chart. The risks included but were not limited to bleeding, infection, non target organ injury. The patient was placed in the CT scanner and imaging was obtained through the abdomen and pelvis. A reproducible target was demonstrated. The skin overlying the site of interest was localized and marked. The skin was sterilely prepped and draped in the usual fashion. Local lidocaine was administered in the skin and underlying tissues, and a tiny dermatotomy was made. Under CT guidance, a 18 gauge needle system was used to access the target. A wire was positioned through the needle system into the fluid collection. Serial dilatation was performed to the appropriate level and a 10 Spanish multipurpose drainage catheter was placed and secured to the skin under CT guidance. The patient tolerated the procedure well without complication. Conscious sedation was administered. The nurse administered fentanyl and Versed medications during the examination and monitored blood pressure, heart rate, and pulse oximeter. Physician intraservice time of 30 minutes. At least one of the following CT dose optimization techniques were used: Automated exposure control; Adjustment of mA and/or kV according to patient size; Use of iterative reconstruction technique. FINDINGS: CT identified the left perinephric abscess, which was selected for drainage. Intra procedural imaging confirmed appropriate catheter placement. Post procedure imaging showed no evidence for complication. Impression Successful CT-guided left perinephric abscess drainage. Signed by: Liza Morataya David Sign Date/Time: 04/13/2019 6:34 PM PROBLEM LIST Principal Problem: Kidney, perinephric abscess Active Problems: Pyelonephritis Tobacco abuse ASSESSMENT & PLAN Left renal abscess S/p placement of drain 04/09/19, drain output appear minimal Greatly appreciate IR's help, noted recommendations; for possible repeat CT abdomen and pel vis Fluid culture + S. Aureus, pending sensitivity study On cefepime and vancomycin now Greatly appreciated ID's inputs Continue to trend wbc Consider hypovolemic hyponatremia resolved Will continue to monitor Hypokalemia repleted Will continue to monitor and replace as necessary Nicontine use On nicotine patch DVT prophylaxis with lovenox Disposition: Pending Code Status: Full Code Teresita Do MD 04/14/2019 9:18 Mckenzie Rojas, [facility] - 04/13/2019 2:16 PM PDT Clinical Pharmacy Note: Vancomycin Day 1 Subjective / Objective Timothy Conrad 34 y.o. male Height: 188 cm Weight: 94.6 kg Past Medical History: Diagnosis Date Hepatitis C Hernia of testicle Vitals Vitals with Comments 04/13/2019 04/13/2019 04/13/2019 04/13/2019 SYSTOLIC 140 134 145 - DIASTOLIC 75 72 85 - Pulse 79 78 88 - Temp 97.8 98.2 99.5 98.5 Resp 18 22 24 - Weight 208 lbs 9 oz - - - Height - - - - SPO2 97 98 96 - Microbiology Results (72 hrs) Procedure Component Value Units Date/Time Culture, Wound, Smear, w/Anaerobe [[id number]] Collected: 04/12/19 0955 Order Status: Completed Lab Status: Preliminary result Updated: 04/12/19 235 Special Requests LEFT FLANK DRAIN Special Requests [place] [facility] [place] [address];[place] [address] Gram Stain Result -- 2+ WBC'S SEEN Gram Stain Result -- 4+ GRAM POSITIVE COCCI Gram Stain Result Testing performed at [address] [address] RESULT PENDING Comment: Testing performed at [facility], [address] [place] [id number] Culture, Urine [[id number]] Collected: 04/12/19 0055 Order Status: Completed Lab Status: Final result Updated: 04/13/19 101 Specimen: Urine, Clean Catch RESULT NO GROWTH RESULT Testing performed at [facility], [address] [place] [id number] Comment: Testing performed at [address] [address] Labs Component Value Date/Time CREA 0.59 (L) 04/13/2019 0607 CREA 0.7 04/12/2019 0513 BUN 10 04/13/2019 0607 BUN 9 04/12/2019 0513 WBC 14.87 (H) 04/13/2019 0607 WBC 18.08 (H) 04/12/2019 05 Intake/Output Summary (Last 24 hours) at 04/13/2019 1417 Last data filed at 04/13/2019 0837 Gross per 24 hour Intake 3971 ml Output 200 ml Net 3771 ml Vanco admin times and level times DATE 04/13 04/14 dose/time 1750 mg @ 1132 dose/time Serum creatinine: 0.59 mg/dL (L) 04/13/19 0607 Estimated creatinine clearance: 201 mL/min (A) Additional antibiotics ordered: Cefepime Assessment / Plan Indication: Pyelonephritis, perinephric abscess ID is following Renal Function: -Patients appears to have augmented renal clearance given age and CrCl >150 ml/min -baseline creatine is unknown -Given current renal status and age, patient will likely clear vancomycin at a high rate -Will dose more frequently given the above factors -Target trough 10-20 mcg/dL -Previous vancomycin dose 1750 mg @ 1132 -Start vancomycin 1250 mg Q8H @ 2000 -Trough 04/14 @ 1900 -will consider an earlier level if bump in creatine occurs -Pharmacy will continue to follow and assess Alexander. Timothy RPH 04/13/19 Cyndee Monahan PA - 04/13/2019 11:29 AM PDT Interventional Radiology Progress Note Patient Name: Timothy Conrad Date of : 1985 Consulting Provider: Cyndee Jolley PA-C Interval History/Subjective: Timothy Conrad is a 34 y.o. male s/p PAD and catheter placement with Dr. Morataya yesterday. ID on board and managing antibiotics. WBC improved today, but still elevated at 14.87. RN repor ts a cap was not screwed and patient woke up to drainage wetting the bed around him. The scr ew was tightened and not having some output in the bag. Patient reports having some tenderness, but overall feeling better today. Labs: 3 Day Labs: Recent Labs Lab 04/13/19 0607 04/12/19 0513 WBC 14.87* 18.08* HGB 12.5* 13.2 HCT 36.5* 38.6* PLT 216 207 NA 138 133* K 3.9 4.2 CL 104 101 CO2 25 26 BUN 10 9 CALCIUM 9.0 9.1 MG 1.8 1.9 PTT -- 33* INR -- 1.0 Pertinent Imaging/Procedures: No results found. Physical Examination: Vitals: 04/13/19 1125 BP: 145/85 Pulse: 88 Resp: 24 Temp: 37.5 C (99.5 F) Physical Exam Constitutional: He is oriented to person, place, and time. No distress. HENT: Head: Normocephalic and atraumatic. Cardiovascular: Normal rate. Pulmonary/Chest: Effort normal. No respiratory distress. Abdominal: Soft. Neurological: He is alert and oriented to person, place, and time. Skin: Skin is warm and dry. He is not diaphoretic. Drain C/D/I with serosanguinous output in accordion bag Psychiatric: Mood and affect normal. Assessment and Plan: Left perinephric abscess s/p PAD and catheter placement. Patient with undocumented amount o f output throughout the night, but continues to have more output this morning. WBC count dec reasing and is on Vancomycin and Cefepime. Catheter flushes well, but does not aspirate easi ly. If his output remains low and his WBC does not continue to improve, would consider repea t CT abd/pel. Will continue to monitor Cyndee Jolley PA-C Vascular and Interventional Radiology Juan Pereyra DO - 9:59 AM PDT [facility] Service: Infectious Diseases Progress note Hospital Day: LOS 2 Post-op Day: * No surgery found * Subjective Patient Summary: 34 y.o. male with significant past medical history of hepatitis C who pre sented on 04/11/2019 with left flank and left lower quadrant abdominal pain present for 1 we ek with intermittent fevers. The patient reports that the symptoms initially began with sylvie e mild scrotal discomfort and scrotal swelling that he thought was a hernia that would resol ve on its own. The patient reported needing to strain in order to urinate on the day of adm ission, and there were some episodes of pain with urination intermittently. The patient graham londono presented to the emergency department at [facility] in [place] where work-up included a CT scan revealing possible left renal abscess although difficult to exclu de malignancy. He was transferred here for further management. The patient was started emp irically on ceftriaxone. He has undergone CT-guided drain placement. CC: Renal abscess Chart reviewed: No new events. Subjective The patient reports that he feels much better overall today. He is still having some left flank and left lower quadrant pain. He denies any fevers or chills. The patient was told i n the past that he has chronic hepatitis C and would need treatment with Harvoni, but never started treatment before leaving [place]. He has not had any follow-up for his hepatitis C since moving up here. ROS No fever, chills sweats. No nausea, vomiting or diarrhea. No rashes or pruritis. No oral pa in. cefepime 2 g Intravenous 2 times per day enoxaparin 40 mg Subcutaneous Daily nicotine 1 patch Transdermal Daily PRN Medications: acetaminophen, HYDROmorphone, ibuprofen, ondansetron, polyethylene glycol Current Facilty-Administered PRN Medications Ordered in [facility] Medication Dose Route Frequency Provider Last Rate Last Dose acetaminophen (TYLENOL) tablet 650 mg 650 mg Oral Q4H PRN David Calvin DO 650 mg at 04/12/19 1654 HYDROmorphone (DILAUDID) injection 2 mg 2 mg Intravenous Q4H PRN Teresita Do MD 2 mg at 04/13/19 0832 ibuprofen (ADVIL, MOTRIN) tablet 600 mg 600 mg Oral Q6H PRN Teresita Do MD 600 mg at 04/13/19 0319 ondansetron (ZOFRAN) injection 4 mg 4 mg Intravenous Q4H PRN David Calvin DO polyethylene glycol (MIRALAX) powder 17 g 17 g Oral Daily PRN David Calvin DO Objective: Vital Signs: BP 134/72 | Pulse 78 | Temp 36.8 C (98.2 F) (Oral) | Resp 22 | Ht 1.88 m (6' 2") | Wt 94.6 kg (208 lb 8.9 oz) | SpO2 98% | BMI 26.78 kg/m Temp: [36.4 C (97.6 F)-39.2 C (102.5 F)] 36.8 C (98.2 F) Pulse: [73-110] 78 Resp: [13-22] 22 BP: (113-148)/(58-75) 134/72 Exam: Const: Vitals reviewed. No acute distress Skin: No rashes, no edema ENT: No thrush. Lungs: CTAB, no rales or wheezes Heart: RRR, no murmur Abd: soft, NT, + bowel sounds Data: Recent Results (from the past 24 hour(s)) CBC with Differential Result Value Ref Range WBC 14.87 (H) 3.80 - 11.00 K/uL RBC 4.36 4.20 - 5.70 M/uL Hemoglobin 12.5 (L) 13.2 - 17.0 g/dL Hematocrit 36.5 (L) 39.0 - 50.0 % MCV 83.8 80.0 - 100.0 fl MCH 28.8 27.0 - 34.0 pg MCHC 34.4 32.0 - 35.5 g/dL RDW-SD 39.8 37 - 53 fl Platelet Count 216 150 - 400 K/uL MPV 9.5 fl Diff Type AUTOMATED % Neutrophils 75.45 % % Lymphocytes 12.48 % Monocyte % 11.04 % Eosinophils % 0.30 % Basophils % 0.73 % Neutrophils, Absolute 11.22 (H) 1.90 - 7.40 K/uL Absolute Lymphocytes 1.86 1.00 - 3.90 K/uL Absolute Monocytes 1.64 (H) 0.00 - 0.80 K/uL Eosinophils, Absolute 0.05 0.00 - 0.50 K/uL Basophils, Absolute 0.11 (H) 0.00 - 0.10 K/uL Basic Metabolic Panel Result Value Ref Range Na 138 135 - 145 mmol/L K 3.9 3.5 - 4.9 mmol/L Cl 104 99 - 109 mmol/L CO2 25 23 - 32 mmol/L Anion Gap 13 5 - 20 mmol/L Glucose 99 65 - 99 mg/dL BUN 10 8 - 25 mg/dL Creatinine 0.59 (L) 0.70 - 1.30 mg/dL BUN/Creatinine Ratio 17 Calcium 9.0 8.5 - 10.5 mg/dL Estimated GFR >60 >60 mL/min/1.73m2 Magnesium Result Value Ref Range Magnesium 1.8 1.7 - 2.4 mg/dL Microbiology: Urine culture collected on admission is pending. Culture collected during CT-guided drai n placement is pending, Gram stain showed gram-positive cocci. Imaging: No results found. Problem List: Principal Problem: Kidney, perinephric abscess Active Problems: Pyelonephritis Tobacco abuse Assessment / Recommendations: Pyelonephritis, perinephric abscess Appreciate CT-guided drain placement. Based on Gram stain results, will add vancomycin w rajivdyana awaiting final cultures. Continue cefepime. Hepatitis C The patient has been recommended to undergo treatment in the past. We will need to obtain viral load and genotype to direct treatment. Code Status: Full Code Juan Tejada DO 04/13/19 Teresita Caba MD - 04/13 8:59 AM PDT [facility] Service: Hospitalist Progress Note Hospital Day: LOS: 2 days SUBJECTIVE Patient Summary: Mr. Conrad is a 34 yr old man with chronic HCV infection, presented at [facility] ED for 1 week for constant LLQ pain that radiates to the back and intermittent feverrs. He had leuk ocytosis. CT abdomen showed findings concerning for left pyelonephritis with developing int rarenal abscess; large loculation with perinephric inflammatory changes consistent with an a bscess. Patient was transferred here for possible IR drainage. Patient underwent IR placemen t of drainage on 04/12/19. 20cc of purulent drainage was obtain. ID was consulted and recomm ended to continue ceftriaxone. GS of fluid was + for GPC, final ID still pending. Events Overnight: Patient had no event overnight. He reports the pain is improved but still goes up to ~ 6/10 at times. Scheduled Medications cefepime 2 g Intravenous 2 times per day nicotine 1 patch Transdermal Daily Continuous Infusions sodium chloride 0.9% 125 mL/hr at 04/13/19 0840 PRN Medications acetaminophen, HYDROmorphone, ibuprofen, ondansetron, polyethylene glycol OBJECTIVE Vital Signs: BP 134/72 | Pulse 78 | Temp 36.8 C (98.2 F) (Oral) | Resp 22 | Ht 1.88 m (6' 2") | Wt 94.6 kg (208 lb 8.9 oz) | SpO2 98% | BMI 26.78 kg/m Patient Vitals for the past 24 hrs: BP Temp Temp src Pulse Resp SpO2 Weight 04/13/19 0741 134/72 36.8 C (98.2 F) Oral 78 22 98 % 04/13/19 0336 140/75 36.6 C (97.8 F) Oral 79 18 97 % 94.6 kg (208 lb 8.9 oz) 04/12/19 2345 135/73 36.6 C (97.9 F) Oral 94 18 99 % 04/12/19 1938 137/63 37.3 C (99.1 F) Oral 94 18 99 % 04/12/19 1840 (!) 38.5 C (101.3 F) 04/12/19 1633 (!) 39.2 C (102.5 F) 04/12/19 1540 147/68 (!) 39.2 C (102.5 F) Oral 110 18 97 % 04/12/19 1130 148/71 36.4 C (97.6 F) Oral 77 18 97 % 04/12/19 1009 116/67 77 18 98 % 04/12/19 1005 113/58 04/12/19 1005 113/59 73 13 99 % 04/12/19 1004 74 98 % 04/12/19 1003 74 98 % 04/12/19 1002 113/59 78 98 % 04/12/19 1001 78 98 % 04/12/19 1000 127/69 76 15 98 % 04/12/19 1000 76 98 % 04/12/19 0959 122/67 74 98 % 04/12/19 0958 76 98 % 04/12/19 0957 76 98 % 04/12/19 0956 127/69 74 98 % 04/12/19 0955 124/66 74 14 99 % 04/12/19 0954 72 99 % 04/12/19 0953 124/66 74 99 % 04/12/19 0952 72 99 % 04/12/19 0951 74 98 % 04/12/19 0950 113/64 70 99 % 04/12/19 0949 118/65 75 9 99 % 04/12/19 0949 74 99 % 04/12/19 0948 78 99 % 04/12/19 0947 122/63 72 99 % 04/12/19 0946 70 100 % 04/12/19 0945 118/68 73 15 99 % 04/12/19 0945 70 99 % 04/12/19 0944 118/65 72 99 % 04/12/19 0943 72 99 % 04/12/19 0919 122/60 Intake/Output Summary (Last 24 hours) at 04/13/2019 0859 Last data filed at 04/13/2019 0837 Gross per 24 hour Intake 4973 ml Output 900 ml Net 4073 ml Physical Exam Constitutional: He is oriented to person, place, and time. Young man, sitting up on the bed, not in any respiratory distress or discomfort HENT: Head: Normocephalic and atraumatic. Eyes: Pupils are equal, round, and reactive to light. Conjunctivae are normal. Neck: Normal range of motion. No JVD present. Cardiovascular: Normal rate and regular rhythm. No murmur heard. Pulmonary/Chest: Effort normal and breath sounds normal. He has no wheezes. He has no rales . Abdominal: Soft. + tenderness LLQ, + drain in place left flank Musculoskeletal: He exhibits no edema. Lymphadenopathy: He has no cervical adenopathy. Neurological: He is alert and oriented to person, place, and time. No cranial nerve deficit . Skin: Skin is warm. DATA Recent Results (from the past 24 hour(s)) Culture, Wound, Smear, w/Anaerobe Result Value Ref Range Special Requests LEFT FLANK DRAIN Special Requests Testing [place] [facility] [facility];[place] [address] Gram Stain Result 2+ WBC'S SEEN Gram Stain Result 4+ GRAM POSITIVE COCCI Gram Stain Result Testing performed at [facility], [address] [place] [address] RESULT PENDING CBC with Differential Result Value Ref Range WBC 14.87 (H) 3.80 - 11.00 K/uL RBC 4.36 4.20 - 5.70 M/uL Hemoglobin 12.5 (L) 13.2 - 17.0 g/dL Hematocrit 36.5 (L) 39.0 - 50.0 % MCV 83.8 80.0 - 100.0 fl MCH 28.8 27.0 - 34.0 pg MCHC 34.4 32.0 - 35.5 g/dL RDW-SD 39.8 37 - 53 fl Platelet Count 216 150 - 400 K/uL MPV 9.5 fl Diff Type AUTOMATED % Neutrophils 75.45 % % Lymphocytes 12.48 % Monocyte % 11.04 % Eosinophils % 0.30 % Basophils % 0.73 % Neutrophils, Absolute 11.22 (H) 1.90 - 7.40 K/uL Absolute Lymphocytes 1.86 1.00 - 3.90 K/uL Absolute Monocytes 1.64 (H) 0.00 - 0.80 K/uL Eosinophils, Absolute 0.05 0.00 - 0.50 K/uL Basophils, Absolute 0.11 (H) 0.00 - 0.10 K/uL Basic Metabolic Panel Result Value Ref Range Na 138 135 - 145 mmol/L K 3.9 3.5 - 4.9 mmol/L Cl 104 99 - 109 mmol/L CO2 25 23 - 32 mmol/L Anion Gap 13 5 - 20 mmol/L Glucose 99 65 - 99 mg/dL BUN 10 8 - 25 mg/dL Creatinine 0.59 (L) 0.70 - 1.30 mg/dL BUN/Creatinine Ratio 17 Calcium 9.0 8.5 - 10.5 mg/dL Estimated GFR >60 >60 mL/min/1.73m2 Magnesium Result Value Ref Range Magnesium 1.8 1.7 - 2.4 mg/dL IMAGES No results found for this or any previous visit (from the past 360 hour(s)). PROBLEM LIST Principal Problem: Kidney, perinephric abscess Active Problems: Pyelonephritis Tobacco abuse ASSESSMENT & PLAN Left renal abscess S/p placement of drain 04/09/19 Greatly appreciate IR's help Was on ceftriaxone, changed to cefepime Greatly appreciated ID's inputs Fluid GS + GPC, pending final result Consider hypovolemic hyponatremia resolved Will continue to monitor Hypokalemia repleted Will continue to monitor and replace as necessary Nicontine use On nicotine patch DVT prophylaxis with lovenox Disposition: Pending Code Status: Full Code Teresita Do MD 04/13/2019 8:59 Thelma Bull RN - 1 10:30 AM PDTPt tolerated procedure well. vss throughout. Pt given 150mcg fentanyl and 2mg versed intra procedure. Pt has drain upon transfer to unit. Drain dressing intact cl hina and dry. Report given to nurse over phone. Pt transferred to floor in no observed or sta naty distress. Marcie Caba MD - 04/12/2019 6:20 AM PDTFormatting of this note might be different from the origi nal. [facility] Service: Hospitalist Progress Note Hospital Day: LOS: 1 day SUBJECTIVE Patient Summary: Mr. Conrad is a 34 yr old man with chronic HCV infection, presented at [facility] ED for 1 week for constant LLQ pain that radiates to the back and intermittent feverrs. He had leuk ocytosis. CT abdomen showed findings concerning for left pyelonephritis with developing int rarenal abscess; large loculation with perinephric inflammatory changes consistent with an a bscess. Patient was transferred here for possible IR drainage. Events Overnight: Patient had no event overnight. He was seen at bedside, still in be but better after torado l. Scheduled Medications cefTRIAXone 1 g Intravenous Daily nicotine 1 patch Transdermal Daily Continuous Infusions sodium chloride 0.9% 1,000 mL (04/11/19 2324) PRN Medications acetaminophen, morphine, ondansetron, polyethylene glycol OBJECTIVE Vital Signs: BP 142/65 | Pulse 99 | Temp 37 C (98.6 F) (Oral) | Resp 16 | Ht 1.88 m (6' 2") | W t 91.5 kg (201 lb 11.5 oz) | SpO2 98% | BMI 25.90 kg/m Patient Vitals for the past 24 hrs: BP Temp Temp src Pulse Resp SpO2 Height Weight 04/12/19 0428 91.5 kg (201 lb 11.5 oz) 04/12/19 0400 142/65 37 C (98.6 F) Oral 99 16 98 % 04/11/19 2247 174/81 37.1 C (98.8 F) Oral 92 20 99 % 1.88 m (6' 2") 04/11/19 2200 174/81 37.1 C (98.8 F) Oral 117 22 99 % Intake/Output Summary (Last 24 hours) at 04/12/2019 0620 Last data filed at 04/12/2019 0400 Gross per 24 hour Intake 50 ml Output 750 ml Net -700 ml Physical Exam Constitutional: He is oriented to person, place, and time and well-developed, well-nourishe d, and in no distress. HENT: Head: Normocephalic and atraumatic. Eyes: Pupils are equal, round, and reactive to light. Conjunctivae are normal. Neck: Normal range of motion. No JVD present. Cardiovascular: Normal rate and regular rhythm. No murmur heard. Pulmonary/Chest: Effort normal and breath sounds normal. He has no wheezes. He has no rales . Abdominal: Soft. + tenderness LLQ Musculoskeletal: He exhibits no edema. Lymphadenopathy: He has no cervical adenopathy. Neurological: He is alert and oriented to person, place, and time. No cranial nerve deficit . Skin: Skin is warm. DATA Recent Results (from the past 24 hour(s)) CBC no Differential Result Value Ref Range WBC 18.08 (H) 3.80 - 11.00 K/uL RBC 4.51 4.20 - 5.70 M/uL Hemoglobin 13.2 13.2 - 17.0 g/dL Hematocrit 38.6 (L) 39.0 - 50.0 % MCV 85.6 80.0 - 100.0 fl MCH 29.3 27.0 - 34.0 pg MCHC 34.2 32.0 - 35.5 g/dL RDW-SD 39.4 37 - 53 fl Platelet Count 207 150 - 400 K/uL MPV 10.2 fl PTT Result Value Ref Range PTT 33 (H) 23 - 32 seconds Protime INR Result Value Ref Range INR 1.0 IMAGES No results found for this or any previous visit (from the past 360 hour(s)). PROBLEM LIST Principal Problem: Kidney, perinephric abscess Active Problems: Pyelonephritis Tobacco abuse ASSESSMENT & PLAN Left renal abscess On ceftriaxone Will consult ID for antibiotic management Scheduled for IR drainage Pending blood and urine cultures Consider hypovolemic hyponatremia IVF as ordered Will trend serum Na Hypokalemia repleted Will continue to monitor and replace as necessary Nicontine use On nicotine patch DVT prophylaxis will start lovenox after procedure is completed Disposition: Pending Code Status: Full Code Teresita Do MD 04/12/2019 6:20 Gloria Kirk RN - 04/12/2019 5:45 AM PDTPt NPO after midnight. All blood thinners to be held. IR to call days hift RN today once time slot available for renal abscess drain. PRN morphine x2 for L flank pain. HR 90-100's, SBP 140-170's. Pt education on pyelonephritis and draining renal abscess. Hourly rounding performed. All cares & concerns will be passed on to eleuterio MUNOZ. loria Storey RN - 04/11/2019 10:20 PM PDTPt received devon adamson from [facility]. EMS bedside report. Phone report received from TAMMY Soto. documented in this e ncounter Plan of Treatment + + +--------+ + + | Name | Type | Priori | Associated Diagnoses | Date/Time | | | | ty | | | + + +--------+ + + | Culture, Blood | Microbiolog | STAT | | 05/04/2019 10:17 AM | | | y | | | PST | + + +--------+ + + | Culture, Blood | Microbiolog | STAT | | 05/04/2019 10:24 AM | | | y | | | PST | + + +--------+ + + + +------+--------+ + + | Name | Type | Priori | Associated Diagnoses | Order Schedule | | | | ty | | | + +------+--------+ + + | CBC with | Lab | Routin | Kidney, | Expected: | | Differential | | e | perinephric abscess | 04/18/2019, Expires: | | | | | | 04/18/2020 | + +------+--------+ + + | Comprehensive | Lab | Routin | Kidney, | Expected: | | Metabolic Panel | | e | perinephric abscess | 04/18/2019, Expires: | | | | | | 04/18/2020 | + +------+--------+ + + | C-Reactive Protein | Lab | Routin | Kidney, | Expected: | | | | e | perinephric abscess | 04/18/2019, Expires: | | | | | | 04/18/2020 | + +------+--------+ + + | Sedimentation Rate | Lab | Routin | Kidney, | Expected: | | | | e | perinephric abscess | 04/18/2019, Expires: | | | | | | 04/18/2020 | + +------+--------+ + + | CK Total | Lab | Routin | Kidney, | Expected: | | | | e | perinephric abscess | 04/18/2019, Expires: | | | | | | 04/18/2020 | + +------+--------+ + + documented as of this encounter Procedures + +--------+ + + + | Procedure Name | Priori | Date/Time | Associated Diagnosis | Comments | | | ty | | | | + +--------+ + + + | LABS - EXTERNAL SCAN | | 05/08/2019 | | Results for this | | | | 12:00 AM | | procedure are in the | | | | PST | | results section. | + +--------+ + + + | C-REACTIVE PROTEIN | Add-On | 05/07/2019 | | Results for this | | | | 4:59 PM | | procedure are in the | | | | PST | | results section. | + +--------+ + + + | SEDIMENTATION RATE | Add-On | 05/07/2019 | | Results for this | | | | 3:17 PM | | procedure are in the | | | | PST | | results section. | + +--------+ + + + | CBC WITH | Routin | 05/07/2019 | | Results for this | | DIFFERENTIAL | e | 4:46 AM | | procedure are in the | | | | PST | | results section. | + +--------+ + + + | BASIC METABOLIC | Routin | 05/07/2019 | | Results for this | | PANEL | e | 4:46 AM | | procedure are in the | | | | PST | | results section. | + +--------+ + + + | CBC WITH | STAT | 05/06/2019 | | Results for this | | DIFFERENTIAL | | 1:36 PM | | procedure are in the | | | | PST | | results section. | + +--------+ + + + | CT ABDOMEN PELVIS W | Routin | 05/05/2019 | | Results for this | | CONTRAST | e | 7:16 PM | | procedure are in the | | | | PST | | results section. | + +--------+ + + + | CBC WITH | Routin | 05/05/2019 | | Results for this | | DIFFERENTIAL | e | 4:30 AM | | procedure are in the | | | | PST | | results section. | + +--------+ + + + | BASIC METABOLIC | Routin | 05/05/2019 | | Results for this | | PANEL | e | 4:30 AM | | procedure are in the | | | | PST | | results section. | + +--------+ + + + | DRUGS OF ABUSE | Routin | 05/04/2019 | | Results for this | | SCREEN, URINE (H) | e | 11:58 AM | | procedure are in the | | | | PST | | results section. | + +--------+ + + + | POTASSIUM | Routin | 05/04/2019 | | Results for this | | | e | 6:28 AM | | procedure are in the | | | | PST | | results section. | + +--------+ + + + | POTASSIUM | STAT | 05/03/2019 | | Results for this | | | | 12:43 PM | | procedure are in the | | | | PST | | results section. | + +--------+ + + + | CBC WITH | Routin | 05/03/2019 | | Results for this | | DIFFERENTIAL | e | 4:45 AM | | procedure are in the | | | | PST | | results section. | + +--------+ + + + | BASIC METABOLIC | Routin | 05/03/2019 | | Results for this | | PANEL | e | 4:45 AM | | procedure are in the | | | | PST | | results section. | + +--------+ + + + | POTASSIUM | Routin | 05/02/2019 | | Results for this | | | e | 3:58 PM | | procedure are in the | | | | PST | | results section. | + +--------+ + + + | CBC WITH | Routin | 05/02/2019 | | Results for this | | DIFFERENTIAL | e | 4:32 AM | | procedure are in the | | | | PST | | results section. | + +--------+ + + + | BASIC METABOLIC | Routin | 05/02/2019 | | Results for this | | PANEL | e | 4:32 AM | | procedure are in the | | | | PST | | results section. | + +--------+ + + + | CBC WITH | Routin | 05/01/2019 | | Results for this | | DIFFERENTIAL | e | 6:32 AM | | procedure are in the | | | | PST | | results section. | + +--------+ + + + | BASIC METABOLIC | Routin | 05/01/2019 | | Results for this | | PANEL | e | 6:32 AM | | procedure are in the | | | | PST | | results section. | + +--------+ + + + | CBC WITH | Routin | 04/30/2019 | | Results for this | | DIFFERENTIAL | e | 6:34 AM | | procedure are in the | | | | PST | | results section. | + +--------+ + + + | BASIC METABOLIC | Routin | 04/30/2019 | | Results for this | | PANEL | e | 6:34 AM | | procedure are in the | | | | PST | | results section. | + +--------+ + + + | CBC WITH | Routin | 04/29/2019 | | Results for this | | DIFFERENTIAL | e | 4:47 AM | | procedure are in the | | | | PST | | results section. | + +--------+ + + + | BASIC METABOLIC | Routin | 04/29/2019 | | Results for this | | PANEL | e | 4:47 AM | | procedure are in the | | | | PST | | results section. | + +--------+ + + + | CBC WITH | Routin | 04/28/2019 | | Results for this | | DIFFERENTIAL | e | 7:36 AM | | procedure are in the | | | | PDT | | results section. | + +--------+ + + + | BASIC METABOLIC | Routin | 04/28/2019 | | Results for this | | PANEL | e | 6:27 AM | | procedure are in the | | | | PDT | | results section. | + +--------+ + + + | CBC WITH | Routin | 04/27/2019 | | Results for this | | DIFFERENTIAL | e | 6:54 AM | | procedure are in the | | | | PDT | | results section. | + +--------+ + + + | BASIC METABOLIC | Routin | 04/27/2019 | | Results for this | | PANEL | e | 6:54 AM | | procedure are in the | | | | PDT | | results section. | + +--------+ + + + | POTASSIUM | Routin | 04/27/2019 | | Results for this | | | e | 4:16 AM | | procedure are in the | | | | PDT | | results section. | + +--------+ + + + | POTASSIUM | Routin | 04/26/2019 | | Results for this | | | e | 4:06 AM | | procedure are in the | | | | PDT | | results section. | + +--------+ + + + | POTASSIUM | Routin | 04/25/2019 | | Results for this | | | e | 4:36 AM | | procedure are in the | | | | PDT | | results section. | + +--------+ + + + | CULTURE, WOUND, | Routin | 04/24/2019 | | Results for this | | SMEAR, W/ANAEROBE | e | 2:40 PM | | procedure are in the | | | | PDT | | results section. | + +--------+ + + + | CT GUIDED DRAIN | Routin | 04/24/2019 | | Results for this | | ABSCESS RENAL | e | 2:32 PM | | procedure are in the | | | | PDT | | results section. | + +--------+ + + + | PTT | STAT | 04/24/2019 | | Results for this | | | | 3:55 AM | | procedure are in the | | | | PDT | | results section. | + +--------+ + + + | PROTIME INR | STAT | 04/24/2019 | | Results for this | | | | 3:55 AM | | procedure are in the | | | | PDT | | results section. | + +--------+ + + + | POTASSIUM | Routin | 04/23/2019 | | Results for this | | | e | 5:26 AM | | procedure are in the | | | | PDT | | results section. | + +--------+ + + + | POTASSIUM | Routin | 04/22/2019 | | Results for this | | | e | 5:57 AM | | procedure are in the | | | | PDT | | results section. | + +--------+ + + + | POTASSIUM | Routin | 04/21/2019 | | Results for this | | | e | 5:52 PM | | procedure are in the | | | | PDT | | results section. | + +--------+ + + + | POTASSIUM | Routin | 04/21/2019 | | Results for this | | | e | 5:45 AM | | procedure are in the | | | | PDT | | results section. | + +--------+ + + + | ECHO COMPLETE | Routin | 04/20/2019 | | Results for this | | | e | 2:44 PM | | procedure are in the | | | | PDT | | results section. | + +--------+ + + + | CT ABDOMEN PELVIS W | Routin | 04/20/2019 | | Results for this | | CONTRAST | e | 11:08 AM | | procedure are in the | | | | PDT | | results section. | + +--------+ + + + | POTASSIUM | Routin | 04/20/2019 | | Results for this | | | e | 4:09 AM | | procedure are in the | | | | PDT | | results section. | + +--------+ + + + | POTASSIUM | Routin | 04/19/2019 | | Results for this | | | e | 5:36 AM | | procedure are in the | | | | PDT | | results section. | + +--------+ + + + | CBC WITH | Routin | 04/18/2019 | | Results for this | | DIFFERENTIAL | e | 5:39 AM | | procedure are in the | | | | PDT | | results section. | + +--------+ + + + | BASIC METABOLIC | Routin | 04/18/2019 | | Results for this | | PANEL | e | 5:39 AM | | procedure are in the | | | | PDT | | results section. | + +--------+ + + + | CBC WITH | Routin | 04/17/2019 | | Results for this | | DIFFERENTIAL | e | 5:59 AM | | procedure are in the | | | | PDT | | results section. | + +--------+ + + + | BASIC METABOLIC | Routin | 04/17/2019 | | Results for this | | PANEL | e | 5:59 AM | | procedure are in the | | | | PDT | | results section. | + +--------+ + + + | CT GUIDED DRAIN | Routin | 04/16/2019 | | Results for this | | ABSCESS | e | 4:33 PM | | procedure are in the | | | | PDT | | results section. | + +--------+ + + + | CULTURE, BODY FLUID | Routin | 04/16/2019 | | Results for this | | STERILE | e | 3:45 PM | | procedure are in the | | | | PDT | | results section. | + +--------+ + + + | CULTURE, BLOOD | STAT | 04/16/2019 | | Results for this | | | | 12:18 PM | | procedure are in the | | | | PDT | | results section. | + +--------+ + + + | CULTURE, BLOOD | STAT | 04/16/2019 | | Results for this | | | | 12:18 PM | | procedure are in the | | | | PDT | | results section. | + +--------+ + + + | CBC WITH | Routin | 04/16/2019 | | Results for this | | DIFFERENTIAL | e | 5:49 AM | | procedure are in the | | | | PDT | | results section. | + +--------+ + + + | MAGNESIUM | Routin | 04/16/2019 | | Results for this | | | e | 5:49 AM | | procedure are in the | | | | PDT | | results section. | + +--------+ + + + | BASIC METABOLIC | Routin | 04/16/2019 | | Results for this | | PANEL | e | 5:49 AM | | procedure are in the | | | | PDT | | results section. | + +--------+ + + + | CT ABDOMEN W | Routin | 04/15/2019 | | Results for this | | CONTRAST | e | 12:40 PM | | procedure are in the | | | | PDT | | results section. | + +--------+ + + + | CBC WITH | Routin | 04/15/2019 | | Results for this | | DIFFERENTIAL | e | 5:35 AM | | procedure are in the | | | | PDT | | results section. | + +--------+ + + + | CK TOTAL | Add-On | 04/15/2019 | | Results for this | | | | 5:35 AM | | procedure are in the | | | | PDT | | results section. | + +--------+ + + + | BASIC METABOLIC | Routin | 04/15/2019 | | Results for this | | PANEL | e | 5:35 AM | | procedure are in the | | | | PDT | | results section. | + +--------+ + + + | ELE CHEN | ABRAHAN | 04/14/2019 | | Results for this | | | | 6:50 PM | | procedure are in the | | | | PDT | | results section. | + +--------+ + + + | CBC WITH | Routin | 04/14/2019 | | Results for this | | DIFFERENTIAL | e | 5:37 AM | | procedure are in the | | | | PDT | | results section. | + +--------+ + + + | BASIC METABOLIC | Routin | 04/14/2019 | | Results for this | | PANEL | e | 5:37 AM | | procedure are in the | | | | PDT | | results section. | + +--------+ + + + | HEPATITIS, C | Routin | 04/13/2019 | | Results for this | | GENOTYPE (NOT ORD) | e | 11:34 AM | | procedure are in the | | | | PDT | | results section. | + +--------+ + + + | HEPATITIS C VIRUS | Routin | 04/13/2019 | | Results for this | | RNA, PCR, | e | 11:34 AM | | procedure are in the | | QUANTITATIVE (REFLEX | | PDT | | results section. | | TO GEN) | | | | | + +--------+ + + + | CBC WITH | Routin | 04/13/2019 | | Results for this | | DIFFERENTIAL | e | 6:07 AM | | procedure are in the | | | | PDT | | results section. | + +--------+ + + + | MAGNESIUM | Routin | 04/13/2019 | | Results for this | | | e | 6:07 AM | | procedure are in the | | | | PDT | | results section. | + +--------+ + + + | BASIC METABOLIC | Routin | 04/13/2019 | | Results for this | | PANEL | e | 6:07 AM | | procedure are in the | | | | PDT | | results section. | + +--------+ + + + | CT GUIDED DRAIN | Routin | 04/12/2019 | | Results for this | | ABSCESS | e | 11:36 AM | | procedure are in the | | | | PDT | | results section. | + +--------+ + + + | CULTURE, WOUND, | Routin | 04/12/2019 | | Results for this | | SMEAR, W/ANAEROBE | e | 9:55 AM | | procedure are in the | | | | PDT | | results section. | + +--------+ + + + | PTT | Timed | 04/12/2019 | | Results for this | | | | 5:13 AM | | procedure are in the | | | | PDT | | results section. | + +--------+ + + + | PROTIME INR | Timed | 04/12/2019 | | Results for this | | | | 5:13 AM | | procedure are in the | | | | PDT | | results section. | + +--------+ + + + | CBC NO DIFFERENTIAL | Routin | 04/12/2019 | | Results for this | | | e | 5:13 AM | | procedure are in the | | | | PDT | | results section. | + +--------+ + + + | MAGNESIUM | Routin | 04/12/2019 | | Results for this | | | e | 5:13 AM | | procedure are in the | | | | PDT | | results section. | + +--------+ + + + | BASIC METABOLIC | Routin | 04/12/2019 | | Results for this | | PANEL | e | 5:13 AM | | procedure are in the | | | | PDT | | results section. | + +--------+ + + + | CULTURE, URINE | Routin | 04/12/2019 | | Results for this | | | e | 12:55 AM | | procedure are in the | | | | PDT | | results section. | + +--------+ + + + documented in this encounter Results LABS - EXTERNAL SCAN (05/08/2019 12:00 AM PST) + + + | Narrative | Performed At | + + + | Ordered by an | | | unspecified provider. | | + + + C-Reactive Protein (05/07/2019 4:59 PM PST) + + + + + + | Component | Value | Ref Range | Performed | Pathologist | | | | | At | Signature | + + + + + + | CRP | 2.3 (H)Comment: Testing | <0.5 mg/dL | [facility] | | | | performed at [facility], [address] | | LABORATORY | | | | [address], | | | | | | [place] [address] | | | | + + + + + + + + | Specimen | + + | Blood | + + + + + + + | Performing | Address | City/State/Zipcode | Phone Number | | Organization | | | | + + + + + | [facility] | [address] | [place] [address] | [phone] | + + + + + Sedimentation Rate (05/07/2019 3:17 PM PST) + + + + + + | Component | Value | Ref Range | Performed | Pathologist | | | | | At | Signature | + + + + + + | ESR | 85 (H)Comment: Testing | 0 - 15 mm/Hr | [facility] | | | | performed at [facility], [address] | | LABORATORY | | | | [address], | | | | | | [place] [address] | | | | + + + + + + + + | Specimen | + + | Blood | + + + + + + + | Performing | Address | City/State/Zipcode | Phone Number | | Organization | | | | + + + + + | [facility] | [address] | [place] [address] | [phone] | + + + + + CBC with Differential (05/07/2019 4:46 AM PST) + + + + + + | Component | Value | Ref Range | Performed | Pathologist | | | | | At | Signature | + + + + + + | WBC | 11.02 (H) | 3.80 - 11.00 | [facility] | | | | | K/uL | LABORATORY | | + + + + + + | RBC | 4.00 (L) | 4.20 - 5.70 | [facility] | | | | | M/uL | LABORATORY | | + + + + + + | Hemoglobin | 11.3 (L) | 13.2 - 17.0 | [facility] | | | | | g/dL | LABORATORY | | + + + + + + | Hematocrit | 33.6 (L) | 39.0 - 50.0 % | [facility] | | | | | | LABORATORY | | + + + + + + | MCV | 84.1 | 80.0 - 100.0 fl | [facility] | | | | | | LABORATORY | | + + + + + + | MCH | 28.2 | 27.0 - 34.0 pg | [facility] | | | | | | LABORATORY | | + + + + + + | MCHC | 33.5 | 32.0 - 35.5 | [facility] | | | | | g/dL | LABORATORY | | + + + + + + | RDW-SD | 41.6 | 37 - 53 fl | [facility] | | | | | | LABORATORY | | + + + + + + | Platelet | 190 | 150 - 400 K/uL | [facility] | | | Count | | | LABORATORY | | + + + + + + | MPV | 9.8 | fl | [facility] | | | | | | LABORATORY | | + + + + + + | Diff Type | AUTOMATED | | [facility] | | | | | | LABORATORY | | + + + + + + | % | 60.61 | % | [facility] | | | Neutrophils | | | LABORATORY | | + + + + + + | % | 26.47 | % | [facility] | | | Lymphocytes | | | LABORATORY | | + + + + + + | Monocyte % | 10.38 | % | [facility] | | | | | | LABORATORY | | + + + + + + | Eosinophils | 1.90 | % | [facility] | | | % | | | LABORATORY | | + + + + + + | Basophils % | 0.64 | % | [facility] | | | | | | LABORATORY | | + + + + + + | Neutrophils | 6.68 | 1.90 - 7.40 | [facility] | | | , Absolute | | K/uL | LABORATORY | | + + + + + + | Absolute | 2.92 | 1.00 - 3.90 | [facility] | | | Lymphocytes | | K/uL | LABORATORY | | + + + + + + | Absolute | 1.14 (H) | 0.00 - 0.80 | [facility] | | | Monocytes | | K/uL | LABORATORY | | + + + + + + | Eosinophils | 0.21 | 0.00 - 0.50 | [facility] | | | , Absolute | | K/uL | LABORATORY | | + + + + + + | Basophils, | 0.07Comment: Testing | 0.00 - 0.10 | [facility] | | | Absolute | performed at [facility], [address] | [address] | LABORATORY | | | | [facility], | | | | | | [place] [address] | | | | + + + + + + + + | Specimen | + + | Blood | + + + + + + + | Performing | Address | City/State/Zipcode | Phone Number | | Organization | | | | + + + + + | [facility] | [address] | [place] [address] | [phone] | + + + + + Basic Metabolic Panel (05/07/2019 4:46 AM PST) + + + + + + | Component | Value | Ref Range | Performed | Pathologist | | | | | At | Signature | + + + + + + | Na | 134 (L) | 135 - 145 | [facility] | | | | | mmol/L | LABORATORY | | + + + + + + | K | 4.0 | 3.5 - 4.9 | [facility] | | | | | mmol/L | LABORATORY | | + + + + + + | Cl | 100 | 99 - 109 mmol/L | [facility] | | | | | | LABORATORY | | + + + + + + | CO2 | 31 | 23 - 32 mmol/L | [facility] | | | | | | LABORATORY | | + + + + + + | Anion Gap | 7 | 5 - 20 mmol/L | [facility] | | | | | | LABORATORY | | + + + + + + | Glucose | 92 | 65 - 99 mg/dL | [facility] | | | | | | LABORATORY | | + + + + + + | BUN | 9 | 8 - 25 mg/dL | [facility] | | | | | | LABORATORY | | + + + + + + | Creatinine | 0.8 | 0.70 - 1.30 | [facility] | | | | | mg/dL | LABORATORY | | + + + + + + | BUN/Creatin | 11 | | [facility] | | | ine Ratio | | | LABORATORY | | + + + + + + | Calcium | 8.8 | 8.5 - 10.5 | [facility] | | | | | mg/dL | LABORATORY | | + + + + + + | Estimated | >60Comment: GFR <60: | >60 | [facility] | | | GFR | CHRONIC KIDNEY DISEASE, | mL/min/1.73m2 | LABORATORY | | | | IF FOUND OVER A 3 MONTH | | | | | | PERIOD.GFR <15: KIDNEY | | | | | | FAILURE.FOR | | | | | | AMERICANS, MULTIPLY THE | | | | | | CALCULATED GFR BY | | | | | | 1.210.This eGFR is | | | | | | calculated using the | | | | | | MDRD IDMS traceable | | | | | | equation.Testing | | | | | | performed at [facility], [address] | | | | | | [facility], | | | | | | [place] [address] | | | | + + + + + + + + | Specimen | + + | Blood | + + + + + + + | Performing | Address | City/State/Zipcode | Phone Number | | Organization | | | | + + + + + | [facility] | [address] | [place] [address] | [phone] | + + + + + CBC with Differential (05/06/2019 1:36 PM PST) + + + + + + | Component | Value | Ref Range | Performed | Pathologist | | | | | At | Signature | + + + + + + | WBC | 13.57 (H) | 3.80 - 11.00 | [facility] | | | | | K/uL | LABORATORY | | + + + + + + | RBC | 4.30 | 4.20 - 5.70 | [facility] | | | | | M/uL | LABORATORY | | + + + + + + | Hemoglobin | 12.0 (L) | 13.2 - 17.0 | [facility] | | | | | g/dL | LABORATORY | | + + + + + + | Hematocrit | 36.0 (L) | 39.0 - 50.0 % | [facility] | | | | | | LABORATORY | | + + + + + + | MCV | 83.6 | 80.0 - 100.0 fl | [facility] | | | | | | LABORATORY | | + + + + + + | MCH | 28.0 | 27.0 - 34.0 pg | [facility] | | | | | | LABORATORY | | + + + + + + | MCHC | 33.4 | 32.0 - 35.5 | [facility] | | | | | g/dL | LABORATORY | | + + + + + + | RDW-SD | 42.4 | 37 - 53 fl | [facility] | | | | | | LABORATORY | | + + + + + + | Platelet | 226 | 150 - 400 K/uL | [facility] | | | Count | | | LABORATORY | | + + + + + + | MPV | 9.1 | fl | [facility] | | | | | | LABORATORY | | + + + + + + | Diff Type | AUTOMATED | | [facility] | | | | | | LABORATORY | | + + + + + + | % | 68.91 | % | [facility] | | | Neutrophils | | | LABORATORY | | + + + + + + | % | 20.50 | % | [facility] | | | Lymphocytes | | | LABORATORY | | + + + + + + | Monocyte % | 9.40 | % | [facility] | | | | | | LABORATORY | | + + + + + + | Eosinophils | 1.09 | % | [facility] | | | % | | | LABORATORY | | + + + + + + | Basophils % | 0.10 | % | [facility] | | | | | | LABORATORY | | + + + + + + | Neutrophils | 9.35 (H) | 1.90 - 7.40 | [facility] | | | , Absolute | | K/uL | LABORATORY | | + + + + + + | Absolute | 2.78 | 1.00 - 3.90 | [facility] | | | Lymphocytes | | K/uL | LABORATORY | | + + + + + + | Absolute | 1.28 (H) | 0.00 - 0.80 | [facility] | | | Monocytes | | K/uL | LABORATORY | | + + + + + + | Eosinophils | 0.15 | 0.00 - 0.50 | [facility] | | | , Absolute | | K/uL | LABORATORY | | + + + + + + | Basophils, | 0.01Comment: Testing | 0.00 - 0.10 | [facility] | | | Absolute | performed at [facility] | LABORATORY | | | | [address];[place] | | | | | | [id number] | | | | + + + + + + + + | Specimen | + + | Blood | + + + + + + + | Performing | Address | City/State/Zipcode | Phone Number | | Organization | | | | + + + + + | [facility] | [address] | [place] [address] | [phone] | + + + + + CT Abdomen Pelvis w Contrast (05/05/2019 7:16 PM PST) + + | Specimen | + + | | + + + + + | Impressions | Performed At | + + + | 1. Interval removal of the previously noted percutaneous drainage | [facility] | | catheter in the lower pole the left kidney. Heterogeneous round | | | density in the lower pole of the kidney measuring approximately 5 cm x | | | 5.3 cm, previously 6 cm x 5 cm. Differential considerations include | | | malignancy, hemorrhagic mass, and/or hematoma. 2. Abdominal and | | | pelvic lymphadenopathy, unchanged, concerning for metastatic disease. | | | 3. Mild splenomegaly. Signed by: Liza Fulton, Steve Sign | | | Date/Time: 05/05/2019 8:24 PM | | + + + + + + | Narrative | Performed At | + + + | CT ABDOMEN AND PELVIS WITH CONTRAST CLINICAL INFORMATION: | [facility] | | Renal cyst. Follow up. COMPARISON: CT ABDOMEN PELVIS W CONTRAST | | | (04/20/2019) PROCEDURE: Axial images through the abdomen and | | | pelvis after the administration of 100 ml Omnipaque 350 intravenous | | | contrast. Multiplanar reconstructions. At least one of the | | | following CT dose optimization techniques were used: Automated | | | exposure control; Adjustment of mA and/or kV according to patient | | | size; Use of iterative reconstruction technique. FINDINGS: LUNG | | | BASES: No significant abnormality appreciated. ABDOMEN Liver and | | | Biliary: Liver appears unremarkable. Gallbladder appears to be | | | contracted. Pancreas, Spleen and Adrenals: Mild splenomegaly. The | | | pancreas, and adrenal glands appear unremarkable. Kidneys: Interval | | | removal of the previously noted percutaneous drainage catheter in | | | the lower pole the left kidney. Heterogeneous round density in the | | | lower pole of the kidney measuring approximately 5 cm x 5.3 cm, | | | previously 6 cm x 5 cm. Moderate stranding, and small amount of | | | perinephric hemorrhagic material, unchanged. 1 Right kidney appears | | | unremarkable. ABDOMEN AND PELVIS Bowel: Appendix is seen on | | | series 2, image 140 and appears unremarkable. No bowel obstruction | | | or ileus seen. Vessels: Aorta does not appear aneurysmal. Mild | | | atherosclerosis Lymph Nodes: Multiple enlarged abdominal and pelvic | | | lymph nodes appear unchanged. Peritoneum and Retroperitoneum: No | | | ascites or free air seen. PELVIS Genitourinary: Urinary bladder | | | appears to be mildly distended BODY WALL Soft Tissues: No | | | significant abnormality appreciated. Bones: No acute or destructive | | | osseous process seen. | | + + + + + | Procedure Note | + + | Reynaldo, Rad Results In - 05/05/2019 8:27 PM PST | | CT ABDOMEN AND PELVIS WITH CONTRAST | | | | CLINICAL INFORMATION: | | Renal cyst. | | Follow up. | | | | COMPARISON: | | CT ABDOMEN PELVIS W CONTRAST (04/20/2019) | | | | PROCEDURE: | | Axial images through the abdomen and pelvis after the administration of | | 100 ml Omnipaque 350 intravenous contrast. Multiplanar reconstructions. | | | | At least one of the following CT dose optimization techniques were | | used: Automated exposure control; Adjustment of mA and/or kV according | | to patient size; Use of iterative reconstruction technique. | | | | FINDINGS: | | LUNG BASES: No significant abnormality appreciated. | | | | ABDOMEN | | Liver and Biliary: Liver appears unremarkable. Gallbladder appears to | | be contracted. | | Pancreas, Spleen and Adrenals: Mild splenomegaly. The pancreas, and | | adrenal glands appear unremarkable. | | Kidneys: | | Interval removal of the previously noted percutaneous drainage catheter | | in the lower pole the left kidney. Heterogeneous round density in the | | lower pole of the kidney measuring approximately 5 cm x 5.3 cm, | | previously 6 cm x 5 cm. Moderate stranding, and small amount of | | perinephric hemorrhagic material, unchanged. 1 | | Right kidney appears unremarkable. | | | | ABDOMEN AND PELVIS | | Bowel: Appendix is seen on series 2, image 140 and appears | | unremarkable. No bowel obstruction or ileus seen. | | Vessels: Aorta does not appear aneurysmal. Mild atherosclerosis | | Lymph Nodes: | | Multiple enlarged abdominal and pelvic lymph nodes appear unchanged. | | Peritoneum and Retroperitoneum: No ascites or free air seen. | | | | PELVIS | | Genitourinary: Urinary bladder appears to be mildly distended | | | | BODY WALL | | Soft Tissues: No significant abnormality appreciated. | | Bones: No acute or destructive osseous process seen. | | | | IMPRESSION: | | 1. Interval removal of the previously noted percutaneous drainage | | catheter in the lower pole the left kidney. Heterogeneous round | | density in the lower pole of the kidney measuring approximately 5 cm x | | 5.3 cm, previously 6 cm x 5 cm. Differential considerations include | | malignancy, hemorrhagic mass, and/or hematoma. | | 2. Abdominal and pelvic lymphadenopathy, unchanged, concerning for | | metastatic disease. | | 3. Mild splenomegaly. | | | | | | | | Signed by: Liza Fulton, Steve | | Sign Date/Time: 05/05/2019 8:24 PM | + + + +---------+ + + | Performing | Address | City/State/Zipcode | Phone Number | | Organization | | | | + +---------+ + + | [facility] | | | | + +---------+ + + CBC with Differential (05/05/2019 4:30 AM PST) + + + + + + | Component | Value | Ref Range | Performed | Pathologist | | | | | At | Signature | + + + + + + | WBC | 14.37 (H) | 3.80 - 11.00 | [facility] | | | | | K/uL | LABORATORY | | + + + + + + | RBC | 4.31 | 4.20 - 5.70 | [facility] | | | | | M/uL | LABORATORY | | + + + + + + | Hemoglobin | 12.1 (L) | 13.2 - 17.0 | [facility] | | | | | g/dL | LABORATORY | | + + + + + + | Hematocrit | 36.3 (L) | 39.0 - 50.0 % | [facility] | | | | | | LABORATORY | | + + + + + + | MCV | 84.2 | 80.0 - 100.0 fl | [facility] | | | | | | LABORATORY | | + + + + + + | MCH | 28.0 | 27.0 - 34.0 pg | [facility] | | | | | | LABORATORY | | + + + + + + | MCHC | 33.3 | 32.0 - 35.5 | [facility] | | | | | g/dL | LABORATORY | | + + + + + + | RDW-SD | 41.1 | 37 - 53 fl | [facility] | | | | | | LABORATORY | | + + + + + + | Platelet | 223 | 150 - 400 K/uL | [facility] | | | Count | | | LABORATORY | | + + + + + + | MPV | 9.5 | fl | [facility] | | | | | | LABORATORY | | + + + + + + | Diff Type | AUTOMATED | | [facility] | | | | | | LABORATORY | | + + + + + + | % | 60.61 | % | [facility] | | | Neutrophils | | | LABORATORY | | + + + + + + | % | 23.04 | % | [facility] | | | Lymphocytes | | | LABORATORY | | + + + + + + | Monocyte % | 14.79 | % | [facility] | | | | | | LABORATORY | | + + + + + + | Eosinophils | 0.82 | % | [facility] | | | % | | | LABORATORY | | + + + + + + | Basophils % | 0.74 | % | [facility] | | | | | | LABORATORY | | + + + + + + | Neutrophils | 8.71 (H) | 1.90 - 7.40 | [facility] | | | , Absolute | | K/uL | LABORATORY | | + + + + + + | Absolute | 3.31 | 1.00 - 3.90 | [facility] | | | Lymphocytes | | K/uL | LABORATORY | | + + + + + + | Absolute | 2.13 (H) | 0.00 - 0.80 | [facility] | | | Monocytes | | K/uL | LABORATORY | | + + + + + + | Eosinophils | 0.12 | 0.00 - 0.50 | [facility] | | | , Absolute | | K/uL | LABORATORY | | + + + + + + | Basophils, | 0.11 (H)Comment: Testing | 0.00 - 0.10 | [facility] | | | Absolute | performed at [facility], [address] | K/u[address] | LABORATORY | | | | [address], | | | | | | [place] [address] | | | | + + + + + + + + | Specimen | + + | Blood | + + + + + + + | Performing | Address | City/State/Zipcode | Phone Number | | Organization | | | | + + + + + | [facility] | [address] | [place] [address] | [phone] | + + + + + Basic Metabolic Panel (05/05/2019 4:30 AM PST) + + + + + + | Component | Value | Ref Range | Performed | Pathologist | | | | | At | Signature | + + + + + + | Na | 137 | 135 - 145 | [facility] | | | | | mmol/L | LABORATORY | | + + + + + + | K | 3.9 | 3.5 - 4.9 | [facility] | | | | | mmol/L | LABORATORY | | + + + + + + | Cl | 102 | 99 - 109 mmol/L | [facility] | | | | | | LABORATORY | | + + + + + + | CO2 | 31 | 23 - 32 mmol/L | [facility] | | | | | | LABORATORY | | + + + + + + | Anion Gap | 8 | 5 - 20 mmol/L | [facility] | | | | | | LABORATORY | | + + + + + + | Glucose | 116 (H) | 65 - 99 mg/dL | [facility] | | | | | | LABORATORY | | + + + + + + | BUN | 10 | 8 - 25 mg/dL | [facility] | | | | | | LABORATORY | | + + + + + + | Creatinine | 0.8 | 0.70 - 1.30 | [facility] | | | | | mg/dL | LABORATORY | | + + + + + + | BUN/Creatin | 13 | | [facility] | | | ine Ratio | | | LABORATORY | | + + + + + + | Calcium | 8.8 | 8.5 - 10.5 | [facility] | | | | | mg/dL | LABORATORY | | + + + + + + | Estimated | >60Comment: GFR <60: | >60 | [facility] | | | GFR | CHRONIC KIDNEY DISEASE, | mL/min/1.73m2 | LABORATORY | | | | IF FOUND OVER A 3 MONTH | | | | | | PERIOD.GFR <15: KIDNEY | | | | | | FAILURE.FOR | | | | | | AMERICANS, MULTIPLY THE | | | | | | CALCULATED GFR BY | | | | | | 1.210.This eGFR is | | | | | | calculated using the | | | | | | MDRD IDAL traceable | | | | | | equation.Testing | | | | | | performed at [facility], [address] | | | | | | [facility], | | | | | | [place] [address] | | | | + + + + + + + + | Specimen | + + | Blood | + + + + + + + | Performing | Address | City/State/Zipcode | Phone Number | | Organization | | | | + + + + + | [facility] | [address] | [place] [address] | [phone] | + + + + + Drugs Of ABuse Screen, Urine (H) (05/04/2019 11:58 AM PST) + + + + + + | Component | Value | Ref Range | Performed | Pathologist | | | | | At | Signature | + + + + + + | Amp/Methamp | NEGATIVEComment: | NEG | [facility] | | | hetamine, | Positive cutoff for AMP | | LABORATORY | | | Screen, | = 1000 ng/mL | | | | | Urine | | | | | + + + + + + | Barbiturate | NEGATIVEComment: | NEG | [facility] | | | s Screen, | Positive cutoff for FELIX | | LABORATORY | | | Urine | = 200 ng/mL | | | | + + + + + + | Benzodiazep | NEGATIVEComment: | NEG | [facility] | | | elizabeth | Positive cutoff for | | LABORATORY | | | Screen, | BENZO = 200 ng/mL | | | | | Urine | | | | | + + + + + + | Cocaine | NEGATIVEComment: | NEG | [facility] | | | Metabolites | Positive cutoff for ROCK | | LABORATORY | | | , Ur | = 300 ng/mL | | | | + + + + + + | Methadone | NEGATIVEComment: | NEG | [facility] | | | Screen, | Positive cutoff for MTD | | LABORATORY | | | Urine | = 300 ng/mL | | | | + + + + + + | Opiates | NEGATIVEComment: | NEG | [facility] | | | Screen, | Positive cutoff for OPI | | LABORATORY | | | Urine | = 300 ng/mL | | | | + + + + + + | Phencyclidi | NEGATIVEComment: | NEG | [facility] | | | ne Screen, | Positive cutoff for PCP | | LABORATORY | | | Urine | = 25 ng/mL | | | | + + + + + + | Tetrahydroc | POSITIVE (A)Comment: | NEG | [facility] | | | annabinol(T | Positive cutoff for | | LABORATORY | | | HC) | THC = 50 ng/mLThe above | | | | | | are unconfirmed | | | | | | screening results. | | | | | | These results are to | | | | | | be used onlyfor medical | | | | | | (i.e.,treatment) | | | | | | purposes. Unconfirmed | | | | | | screening results must | | | | | | notbe used for | | | | | | non-medical purposes | | | | | | (e.g., employment | | | | | | testing, legal | | | | | | testing).Testing | | | | | | performed at [facility] | | | | | | [address];[place], [place] | | | | | | [address] | | | | + + + + + + + + | Specimen | + + | Urine - Urine | | specimen obtained by | | clean catch | | procedure (specimen) | + + + + + + + | Performing | Address | City/State/Zipcode | Phone Number | | Organization | | | | + + + + + | [facility] | [address] | [place] [address] | [phone] | + + + + + Potassium (05/04/2019 6:28 AM PST) + + + + + + | Component | Value | Ref Range | Performed | Pathologist | | | | | At | Signature | + + + + + + | K | 4.2Comment: Testing | 3.5 - 4.9 | [facility] | | | | performed at [facility];[address] | mmol/L | LABORATORY | | | | [address];[place], [place] | | | | | | [address] | | | | + + + + + + + + | Specimen | + + | Blood | + + + + + + + | Performing | Address | City/State/Zipcode | Phone Number | | Organization | | | | + + + + + | [facility] | [address] | [place] [address] | [phone] | + + + + + Potassium (05/03/2019 12:43 PM PST) + + + + + + | Component | Value | Ref Range | Performed | Pathologist | | | | | At | Signature | + + + + + + | K | 4.3Comment: Testing | 3.5 - 4.9 | [facility] | | | | performed at [facility];[address] | mmol/L | LABORATORY | | | | [address];[place], [place] | | | | | | [address] | | | | + + + + + + + + | Specimen | + + | Blood | + + + + + + + | Performing | Address | City/State/Zipcode | Phone Number | | Organization | | | | + + + + + | [facility] | [address] | [place] [address] | [phone] | + + + + + Basic Metabolic Panel (05/03/2019 4:45 AM PST) + + + + + + | Component | Value | Ref Range | Performed | Pathologist | | | | | At | Signature | + + + + + + | Na | 139 | 135 - 145 | [facility] | | | | | mmol/L | LABORATORY | | + + + + + + | K | 3.8 | 3.5 - 4.9 | [facility] | | | | | mmol/L | LABORATORY | | + + + + + + | Cl | 105 | 99 - 109 mmol/L | [facility] | | | | | | LABORATORY | | + + + + + + | CO2 | 31 | 23 - 32 mmol/L | [facility] | | | | | | LABORATORY | | + + + + + + | Anion Gap | 7 | 5 - 20 mmol/L | [facility] | | | | | | LABORATORY | | + + + + + + | Glucose | 90 | 65 - 99 mg/dL | [facility] | | | | | | LABORATORY | | + + + + + + | BUN | 7 (L) | 8 - 25 mg/dL | [facility] | | | | | | LABORATORY | | + + + + + + | Creatinine | 0.7 | 0.70 - 1.30 | [facility] | | | | | mg/dL | LABORATORY | | + + + + + + | BUN/Creatin | 10 | | [facility] | | | ine Ratio | | | LABORATORY | | + + + + + + | Calcium | 9.0 | 8.5 - 10.5 | [facility] | | | | | mg/dL | LABORATORY | | + + + + + + | Estimated | >60Comment: GFR <60: | >60 | [facility] | | | GFR | CHRONIC KIDNEY DISEASE, | mL/min/1.73m2 | LABORATORY | | | | IF FOUND OVER A 3 MONTH | | | | | | PERIOD.GFR <15: KIDNEY | | | | | | FAILURE.FOR | | | | | | AMERICANS, MULTIPLY THE | | | | | | CALCULATED GFR BY | | | | | | 1.210.This eGFR is | | | | | | calculated using the | | | | | | MDRD IDMS traceable | | | | | | equation.Testing | | | | | | performed at [facility], [address] | | | | | | [facility], | | | | | | [place] [address] | | | | + + + + + + + + | Specimen | + + | Blood | + + + + + + + | Performing | Address | City/State/Zipcode | Phone Number | | Organization | | | | + + + + + | [facility] | [address] | [place] [address] | [phone] | + + + + + CBC with Differential (05/03/2019 4:45 AM PST) + + + + + + | Component | Value | Ref Range | Performed | Pathologist | | | | | At | Signature | + + + + + + | WBC | 10.62 | 3.80 - 11.00 | [facility] | | | | | K/uL | LABORATORY | | + + + + + + | RBC | 4.23 | 4.20 - 5.70 | [facility] | | | | | M/uL | LABORATORY | | + + + + + + | Hemoglobin | 12.0 (L) | 13.2 - 17.0 | [facility] | | | | | g/dL | LABORATORY | | + + + + + + | Hematocrit | 36.2 (L) | 39.0 - 50.0 % | [facility] | | | | | | LABORATORY | | + + + + + + | MCV | 85.4 | 80.0 - 100.0 fl | [facility] | | | | | | LABORATORY | | + + + + + + | MCH | 28.4 | 27.0 - 34.0 pg | [facility] | | | | | | LABORATORY | | + + + + + + | MCHC | 33.3 | 32.0 - 35.5 | [facility] | | | | | g/dL | LABORATORY | | + + + + + + | RDW-SD | 42.4 | 37 - 53 fl | [facility] | | | | | | LABORATORY | | + + + + + + | Platelet | 265 | 150 - 400 K/uL | [facility] | | | Count | | | LABORATORY | | + + + + + + | MPV | 9.3 | fl | [facility] | | | | | | LABORATORY | | + + + + + + | Diff Type | AUTOMATED | | [facility] | | | | | | LABORATORY | | + + + + + + | % | 54.13 | % | [facility] | | | Neutrophils | | | LABORATORY | | + + + + + + | % | 30.24 | % | [facility] | | | Lymphocytes | | | LABORATORY | | + + + + + + | Monocyte % | 13.04 | % | [facility] | | | | | | LABORATORY | | + + + + + + | Eosinophils | 1.65 | % | [facility] | | | % | | | LABORATORY | | + + + + + + | Basophils % | 0.94 | % | [facility] | | | | | | LABORATORY | | + + + + + + | Neutrophils | 5.75 | 1.90 - 7.40 | [facility] | | | , Absolute | | K/uL | LABORATORY | | + + + + + + | Absolute | 3.21 | 1.00 - 3.90 | [facility] | | | Lymphocytes | | K/uL | LABORATORY | | + + + + + + | Absolute | 1.39 (H) | 0.00 - 0.80 | [facility] | | | Monocytes | | K/uL | LABORATORY | | + + + + + + | Eosinophils | 0.18 | 0.00 - 0.50 | [facility] | | | , Absolute | | K/uL | LABORATORY | | + + + + + + | Basophils, | 0.10Comment: Testing | 0.00 - 0.10 | [facility] | | | Absolute | performed at [facility], [address] | K/u[address] | LABORATORY | | | | [address], | | | | | | [place] [address] | | | | + + + + + + + + | Specimen | + + | Blood | + + + + + + + | Performing | Address | City/State/Zipcode | Phone Number | | Organization | | | | + + + + + | [facility] | [address] | [place] [address] | [phone] | + + + + + Potassium (05/02/2019 3:58 PM PST) + + + + + + | Component | Value | Ref Range | Performed | Pathologist | | | | | At | Signature | + + + + + + | K | 4.0Comment: Testing | 3.5 - 4.9 | [facility] | | | | performed at [facility];[address] | mmol/L | LABORATORY | | | | [address];[place] | | | | | | [address] | | | | + + + + + + + + | Specimen | + + | Blood | + + + + + + + | Performing | Address | City/State/Zipcode | Phone Number | | Organization | | | | + + + + + | [facility] | [address] | [place] [address] | [phone] | + + + + + Basic Metabolic Panel (05/02/2019 4:32 AM PST) + + + + + + | Component | Value | Ref Range | Performed | Pathologist | | | | | At | Signature | + + + + + + | Na | 137 | 135 - 145 | [facility] | | | | | mmol/L | LABORATORY | | + + + + + + | K | 3.4 (L) | 3.5 - 4.9 | [facility] | | | | | mmol/L | LABORATORY | | + + + + + + | Cl | 103 | 99 - 109 mmol/L | [facility] | | | | | | LABORATORY | | + + + + + + | CO2 | 29 | 23 - 32 mmol/L | [facility] | | | | | | LABORATORY | | + + + + + + | Anion Gap | 8 | 5 - 20 mmol/L | [facility] | | | | | | LABORATORY | | + + + + + + | Glucose | 162 (H) | 65 - 99 mg/dL | [facility] | | | | | | LABORATORY | | + + + + + + | BUN | 9 | 8 - 25 mg/dL | [facility] | | | | | | LABORATORY | | + + + + + + | Creatinine | 0.8 | 0.70 - 1.30 | [facility] | | | | | mg/dL | LABORATORY | | + + + + + + | BUN/Creatin | 11 | | [facility] | | | ine Ratio | | | LABORATORY | | + + + + + + | Calcium | 8.6 | 8.5 - 10.5 | [facility] | | | | | mg/dL | LABORATORY | | + + + + + + | Estimated | >60Comment: GFR <60: | >60 | [facility] | | | GFR | CHRONIC KIDNEY DISEASE, | mL/min/1.73m2 | LABORATORY | | | | IF FOUND OVER A 3 MONTH | | | | | | PERIOD.GFR <15: KIDNEY | | | | | | FAILURE.FOR | | | | | | AMERICANS, MULTIPLY THE | | | | | | CALCULATED GFR BY | | | | | | 1.210.This eGFR is | | | | | | calculated using the | | | | | | MDRD IDAL traceable | | | | | | equation.Testing | | | | | | performed at [facility], [address] | | | | | | [facility], | | | | | | [place] [address] | | | | + + + + + + + + | Specimen | + + | Blood | + + + + + + + | Performing | Address | City/State/Zipcode | Phone Number | | Organization | | | | + + + + + | [facility] | [address] | [place] [address] | [phone] | + + + + + CBC with Differential (05/02/2019 4:32 AM PST) + + + + + + | Component | Value | Ref Range | Performed | Pathologist | | | | | At | Signature | + + + + + + | WBC | 11.17 (H) | 3.80 - 11.00 | [facility] | | | | | K/uL | LABORATORY | | + + + + + + | RBC | 4.12 (L) | 4.20 - 5.70 | [facility] | | | | | M/uL | LABORATORY | | + + + + + + | Hemoglobin | 11.4 (L) | 13.2 - 17.0 | [facility] | | | | | g/dL | LABORATORY | | + + + + + + | Hematocrit | 35.0 (L) | 39.0 - 50.0 % | [facility] | | | | | | LABORATORY | | + + + + + + | MCV | 84.9 | 80.0 - 100.0 fl | [facility] | | | | | | LABORATORY | | + + + + + + | MCH | 27.8 | 27.0 - 34.0 pg | [facility] | | | | | | LABORATORY | | + + + + + + | MCHC | 32.7 | 32.0 - 35.5 | [facility] | | | | | g/dL | LABORATORY | | + + + + + + | RDW-SD | 41.6 | 37 - 53 fl | [facility] | | | | | | LABORATORY | | + + + + + + | Platelet | 237 | 150 - 400 K/uL | [facility] | | | Count | | | LABORATORY | | + + + + + + | MPV | 9.5 | fl | [facility] | | | | | | LABORATORY | | + + + + + + | Diff Type | AUTOMATED | | [facility] | | | | | | LABORATORY | | + + + + + + | % | 58.71 | % | [facility] | | | Neutrophils | | | LABORATORY | | + + + + + + | % | 27.21 | % | [facility] | | | Lymphocytes | | | LABORATORY | | + + + + + + | Monocyte % | 12.22 | % | [facility] | | | | | | LABORATORY | | + + + + + + | Eosinophils | 1.24 | % | [facility] | | | % | | | LABORATORY | | + + + + + + | Basophils % | 0.62 | % | [facility] | | | | | | LABORATORY | | + + + + + + | Neutrophils | 6.56 | 1.90 - 7.40 | [facility] | | | , Absolute | | K/uL | LABORATORY | | + + + + + + | Absolute | 3.04 | 1.00 - 3.90 | [facility] | | | Lymphocytes | | K/uL | LABORATORY | | + + + + + + | Absolute | 1.37 (H) | 0.00 - 0.80 | [facility] | | | Monocytes | | K/uL | LABORATORY | | + + + + + + | Eosinophils | 0.14 | 0.00 - 0.50 | [facility] | | | , Absolute | | K/uL | LABORATORY | | + + + + + + | Basophils, | 0.07Comment: Testing | 0.00 - 0.10 | [facility] | | | Absolute | performed at [facility], [address] | K/u[address] | LABORATORY | | | | [facility], | | | | | | [place] [address] | | | | + + + + + + + + | Specimen | + + | Blood | + + + + + + + | Performing | Address | City/State/Zipcode | Phone Number | | Organization | | | | + + + + + | [facility] | [address] | [place] [address] | [phone] | + + + + + Basic Metabolic Panel (05/01/2019 6:32 AM PST) + + + + + + | Component | Value | Ref Range | Performed | Pathologist | | | | | At | Signature | + + + + + + | Na | 139 | 135 - 145 | [facility] | | | | | mmol/L | LABORATORY | | + + + + + + | K | 4.0 | 3.5 - 4.9 | [facility] | | | | | mmol/L | LABORATORY | | + + + + + + | Cl | 103 | 99 - 109 mmol/L | [facility] | | | | | | LABORATORY | | + + + + + + | CO2 | 29 | 23 - 32 mmol/L | [facility] | | | | | | LABORATORY | | + + + + + + | Anion Gap | 11 | 5 - 20 mmol/L | [facility] | | | | | | LABORATORY | | + + + + + + | Glucose | 92 | 65 - 99 mg/dL | [facility] | | | | | | LABORATORY | | + + + + + + | BUN | 9 | 8 - 25 mg/dL | [facility] | | | | | | LABORATORY | | + + + + + + | Creatinine | 0.8 | 0.70 - 1.30 | [facility] | | | | | mg/dL | LABORATORY | | + + + + + + | BUN/Creatin | 11 | | [facility] | | | ine Ratio | | | LABORATORY | | + + + + + + | Calcium | 9.2 | 8.5 - 10.5 | [facility] | | | | | mg/dL | LABORATORY | | + + + + + + | Estimated | >60Comment: GFR <60: | >60 | [facility] | | | GFR | CHRONIC KIDNEY DISEASE, | mL/min/1.73m2 | LABORATORY | | | | IF FOUND OVER A 3 MONTH | | | | | | PERIOD.GFR <15: KIDNEY | | | | | | FAILURE.FOR | | | | | | AMERICANS, MULTIPLY THE | | | | | | CALCULATED GFR BY | | | | | | 1.210.This eGFR is | | | | | | calculated using the | | | | | | MDRD IDAL traceable | | | | | | equation.Testing | | | | | | performed at [facility], [address] | | | | | | [facility], | | | | | | [place] [address] | | | | + + + + + + + + | Specimen | + + | Blood | + + + + + + + | Performing | Address | City/State/Zipcode | Phone Number | | Organization | | | | + + + + + | [facility] | [address] | [place] [address] | [phone] | + + + + + CBC with Differential (05/01/2019 6:32 AM PST) + + + + + + | Component | Value | Ref Range | Performed | Pathologist | | | | | At | Signature | + + + + + + | WBC | 11.93 (H) | 3.80 - 11.00 | [facility] | | | | | K/uL | LABORATORY | | + + + + + + | RBC | 4.37 | 4.20 - 5.70 | [facility] | | | | | M/uL | LABORATORY | | + + + + + + | Hemoglobin | 12.2 (L) | 13.2 - 17.0 | [facility] | | | | | g/dL | LABORATORY | | + + + + + + | Hematocrit | 36.8 (L) | 39.0 - 50.0 % | [facility] | | | | | | LABORATORY | | + + + + + + | MCV | 84.3 | 80.0 - 100.0 fl | [facility] | | | | | | LABORATORY | | + + + + + + | MCH | 27.9 | 27.0 - 34.0 pg | [facility] | | | | | | LABORATORY | | + + + + + + | MCHC | 33.1 | 32.0 - 35.5 | [facility] | | | | | g/dL | LABORATORY | | + + + + + + | RDW-SD | 41.1 | 37 - 53 fl | [facility] | | | | | | LABORATORY | | + + + + + + | Platelet | 277 | 150 - 400 K/uL | [facility] | | | Count | | | LABORATORY | | + + + + + + | MPV | 9.4 | fl | [facility] | | | | | | LABORATORY | | + + + + + + | Diff Type | AUTOMATED | | [facility] | | | | | | LABORATORY | | + + + + + + | % | 59.17 | % | [facility] | | | Neutrophils | | | LABORATORY | | + + + + + + | % | 25.65 | % | [facility] | | | Lymphocytes | | | LABORATORY | | + + + + + + | Monocyte % | 13.22 | % | [facility] | | | | | | LABORATORY | | + + + + + + | Eosinophils | 1.10 | % | [facility] | | | % | | | LABORATORY | | + + + + + + | Basophils % | 0.86 | % | [facility] | | | | | | LABORATORY | | + + + + + + | Neutrophils | 7.06 | 1.90 - 7.40 | [facility] | | | , Absolute | | K/uL | LABORATORY | | + + + + + + | Absolute | 3.06 | 1.00 - 3.90 | [facility] | | | Lymphocytes | | K/uL | LABORATORY | | + + + + + + | Absolute | 1.58 (H) | 0.00 - 0.80 | [facility] | | | Monocytes | | K/uL | LABORATORY | | + + + + + + | Eosinophils | 0.13 | 0.00 - 0.50 | [facility] | | | , Absolute | | K/uL | LABORATORY | | + + + + + + | Basophils, | 0.10Comment: Testing | 0.00 - 0.10 | [facility] | | | Absolute | performed at [facility], [address] | K/uL | LABORATORY | | | | [place] [address], | | | | | | [place] [address] | | | | + + + + + + + + | Specimen | + + | Blood | + + + + + + + | Performing | Address | City/State/Zipcode | Phone Number | | Organization | | | | + + + + + | [facility] | [address] | [place] [address] | [phone] | + + + + + Basic Metabolic Panel (04/30/2019 6:34 AM PST) + + + + + + | Component | Value | Ref Range | Performed | Pathologist | | | | | At | Signature | + + + + + + | Na | 138 | 135 - 145 | [facility] | | | | | mmol/L | LABORATORY | | + + + + + + | K | 3.8 | 3.5 - 4.9 | [facility] | | | | | mmol/L | LABORATORY | | + + + + + + | Cl | 102 | 99 - 109 mmol/L | [facility] | | | | | | LABORATORY | | + + + + + + | CO2 | 29 | 23 - 32 mmol/L | [facility] | | | | | | LABORATORY | | + + + + + + | Anion Gap | 11 | 5 - 20 mmol/L | [facility] | | | | | | LABORATORY | | + + + + + + | Glucose | 92 | 65 - 99 mg/dL | [facility] | | | | | | LABORATORY | | + + + + + + | BUN | 13 | 8 - 25 mg/dL | [facility] | | | | | | LABORATORY | | + + + + + + | Creatinine | 0.74 | 0.70 - 1.30 | [facility] | | | | | mg/dL | LABORATORY | | + + + + + + | BUN/Creatin | 18 | | [facility] | | | ine Ratio | | | LABORATORY | | + + + + + + | Calcium | 8.9 | 8.5 - 10.5 | [facility] | | | | | mg/dL | LABORATORY | | + + + + + + | Estimated | >60Comment: GFR <60: | >60 | [facility] | | | GFR | CHRONIC KIDNEY DISEASE, | mL/min/1.73m2 | LABORATORY | | | | IF FOUND OVER A 3 MONTH | | | | | | PERIOD.GFR <15: KIDNEY | | | | | | FAILURE.FOR | | | | | | AMERICANS, MULTIPLY THE | | | | | | CALCULATED GFR BY | | | | | | 1.210.This eGFR is | | | | | | calculated using the | | | | | | [facility] traceable | | | | | | equation.Testing | | | | | | performed at [facility] | | | | | [facility];[place], [place] | | | | | | [address] | | | | + + + + + + + + | Specimen | + + | Blood | + + + + + + + | Performing | Address | City/State/Zipcode | Phone Number | | Organization | | | | + + + + + | [facility] | [address] [facility] | [place] [address] | [phone] | + + + + + CBC with Differential (04/30/2019 6:34 AM PST) + + + + + + | Component | Value | Ref Range | Performed | Pathologist | | | | | At | Signature | + + + + + + | WBC | 11.56 (H) | 3.80 - 11.00 | [facility] | | | | | K/uL | LABORATORY | | + + + + + + | RBC | 4.16 (L) | 4.20 - 5.70 | [facility] | | | | | M/uL | LABORATORY | | + + + + + + | Hemoglobin | 11.4 (L) | 13.2 - 17.0 | [facility] | | | | | g/dL | LABORATORY | | + + + + + + | Hematocrit | 35.0 (L) | 39.0 - 50.0 % | [facility] | | | | | | LABORATORY | | + + + + + + | MCV | 84.2 | 80.0 - 100.0 fl | [facility] | | | | | | LABORATORY | | + + + + + + | MCH | 27.4 | 27.0 - 34.0 pg | [facility] | | | | | | LABORATORY | | + + + + + + | MCHC | 32.6 | 32.0 - 35.5 | [facility] | | | | | g/dL | LABORATORY | | + + + + + + | RDW-SD | 41.1 | 37 - 53 fl | [facility] | | | | | | LABORATORY | | + + + + + + | Platelet | 250 | 150 - 400 K/uL | [facility] | | | Count | | | LABORATORY | | + + + + + + | MPV | 9.0 | fl | [facility] | | | | | | LABORATORY | | + + + + + + | Diff Type | AUTOMATED | | [facility] | | | | | | LABORATORY | | + + + + + + | % | 56.55 | % | [facility] | | | Neutrophils | | | LABORATORY | | + + + + + + | % | 29.06 | % | [facility] | | | Lymphocytes | | | LABORATORY | | + + + + + + | Monocyte % | 12.11 | % | [facility] | | | | | | LABORATORY | | + + + + + + | Eosinophils | 1.38 | % | [facility] | | | % | | | LABORATORY | | + + + + + + | Basophils % | 0.90 | % | [facility] | | | | | | LABORATORY | | + + + + + + | Neutrophils | 6.54 | 1.90 - 7.40 | [facility] | | | , Absolute | | K/uL | LABORATORY | | + + + + + + | Absolute | 3.36 | 1.00 - 3.90 | [facility] | | | Lymphocytes | | K/uL | LABORATORY | | + + + + + + | Absolute | 1.40 (H) | 0.00 - 0.80 | [facility] | | | Monocytes | | K/uL | LABORATORY | | + + + + + + | Eosinophils | 0.16 | 0.00 - 0.50 | [facility] | | | , Absolute | | K/uL | LABORATORY | | + + + + + + | Basophils, | 0.10Comment: Testing | 0.00 - 0.10 | [facility] | | | Absolute | performed at [facility] | K/uL | LABORATORY | | | | [address];[place] | | | | | | [address] | | | | + + + + + + + + | Specimen | + + | Blood | + + + + + + + | Performing | Address | City/State/Zipcode | Phone Number | | Organization | | | | + + + + + | [facility] | [address] | [place] [address] | [phone] | + + + + + Basic Metabolic Panel (04/29/2019 4:47 AM PST) + + + + + + | Component | Value | Ref Range | Performed | Pathologist | | | | | At | Signature | + + + + + + | Na | 136 | 135 - 145 | [facility] | | | | | mmol/L | LABORATORY | | + + + + + + | K | 4.1 | 3.5 - 4.9 | [facility] | | | | | mmol/L | LABORATORY | | + + + + + + | Cl | 101 | 99 - 109 mmol/L | [facility] | | | | | | LABORATORY | | + + + + + + | CO2 | 27 | 23 - 32 mmol/L | [facility] | | | | | | LABORATORY | | + + + + + + | Anion Gap | 12 | 5 - 20 mmol/L | [facility] | | | | | | LABORATORY | | + + + + + + | Glucose | 115 (H) | 65 - 99 mg/dL | [facility] | | | | | | LABORATORY | | + + + + + + | BUN | 12 | 8 - 25 mg/dL | [facility] | | | | | | LABORATORY | | + + + + + + | Creatinine | 0.8 | 0.70 - 1.30 | [facility] | | | | | mg/dL | LABORATORY | | + + + + + + | BUN/Creatin | 15 | | [facility] | | | ine Ratio | | | LABORATORY | | + + + + + + | Calcium | 10.1 | 8.5 - 10.5 | [facility] | | | | | mg/dL | LABORATORY | | + + + + + + | Estimated | >60Comment: GFR <60: | >60 | [facility] | | | GFR | CHRONIC KIDNEY DISEASE, | mL/min/1.73m2 | LABORATORY | | | | IF FOUND OVER A 3 MONTH | | | | | | PERIOD.GFR <15: KIDNEY | | | | | | FAILURE.FOR | | | | | | AMERICANS, MULTIPLY THE | | | | | | CALCULATED GFR BY | | | | | | 1.210.This eGFR is | | | | | | calculated using the | | | | | | MDRD IDMS traceable | | | | | | equation.Testing | | | | | | performed at [facility], [address] | | | | | [facility], | | | | | | [place] [address] | | | | + + + + + + + + | Specimen | + + | Blood | + + + + + + + | Performing | Address | City/State/Zipcode | Phone Number | | Organization | | | | + + + + + | [facility] | [address] | [place] [address] | [phone] | + + + + + CBC with Differential (04/29/2019 4:47 AM PST) + + + + + + | Component | Value | Ref Range | Performed | Pathologist | | | | | At | Signature | + + + + + + | WBC | 12.54 (H) | 3.80 - 11.00 | [facility] | | | | | K/uL | LABORATORY | | + + + + + + | RBC | 4.46 | 4.20 - 5.70 | [facility] | | | | | M/uL | LABORATORY | | + + + + + + | Hemoglobin | 12.4 (L) | 13.2 - 17.0 | [facility] | | | | | g/dL | LABORATORY | | + + + + + + | Hematocrit | 38.1 (L) | 39.0 - 50.0 % | [facility] | | | | | | LABORATORY | | + + + + + + | MCV | 85.4 | 80.0 - 100.0 fl | [facility] | | | | | | LABORATORY | | + + + + + + | MCH | 27.9 | 27.0 - 34.0 pg | [facility] | | | | | | LABORATORY | | + + + + + + | MCHC | 32.7 | 32.0 - 35.5 | [facility] | | | | | g/dL | LABORATORY | | + + + + + + | RDW-SD | 42.9 | 37 - 53 fl | [facility] | | | | | | LABORATORY | | + + + + + + | Platelet | 271 | 150 - 400 K/uL | [facility] | | | Count | | | LABORATORY | | + + + + + + | MPV | 9.3 | fl | [facility] | | | | | | LABORATORY | | + + + + + + | Diff Type | AUTOMATED | | [facility] | | | | | | LABORATORY | | + + + + + + | % | 70.71 | % | [facility] | | | Neutrophils | | | LABORATORY | | + + + + + + | % | 17.09 | % | [facility] | | | Lymphocytes | | | LABORATORY | | + + + + + + | Monocyte % | 10.92 | % | [facility] | | | | | | LABORATORY | | + + + + + + | Eosinophils | 0.57 | % | [facility] | | | % | | | LABORATORY | | + + + + + + | Basophils % | 0.71 | % | [facility] | | | | | | LABORATORY | | + + + + + + | Neutrophils | 8.87 (H) | 1.90 - 7.40 | [facility] | | | , Absolute | | K/uL | LABORATORY | | + + + + + + | Absolute | 2.14 | 1.00 - 3.90 | [facility] | | | Lymphocytes | | K/uL | LABORATORY | | + + + + + + | Absolute | 1.37 (H) | 0.00 - 0.80 | [facility] | | | Monocytes | | K/uL | LABORATORY | | + + + + + + | Eosinophils | 0.07 | 0.00 - 0.50 | [facility] | | | , Absolute | | K/uL | LABORATORY | | + + + + + + | Basophils, | 0.09Comment: Testing | 0.00 - 0.10 | [facility] | | | Absolute | performed at [facility], [address] | [address] | LABORATORY | | | | [address], | | | | | | [place] [address] | | | | + + + + + + + + | Specimen | + + | Blood | + + + + + + + | Performing | Address | City/State/Zipcode | Phone Number | | Organization | | | | + + + + + | [facility] | [address] | [place] [address] | [phone] | + + + + + CBC with Differential (04/28/2019 7:36 AM PDT) + + + + + + | Component | Value | Ref Range | Performed | Pathologist | | | | | At | Signature | + + + + + + | WBC | 14.96 (H) | 3.80 - 11.00 | [facility] | | | | | K/uL | LABORATORY | | + + + + + + | RBC | 4.51 | 4.20 - 5.70 | [facility] | | | | | M/uL | LABORATORY | | + + + + + + | Hemoglobin | 12.6 (L) | 13.2 - 17.0 | [facility] | | | | | g/dL | LABORATORY | | + + + + + + | Hematocrit | 37.5 (L) | 39.0 - 50.0 % | [facility] | | | | | | LABORATORY | | + + + + + + | MCV | 83.1 | 80.0 - 100.0 fl | [facility] | | | | | | LABORATORY | | + + + + + + | MCH | 27.9 | 27.0 - 34.0 pg | [facility] | | | | | | LABORATORY | | + + + + + + | MCHC | 33.5 | 32.0 - 35.5 | [facility] | | | | | g/dL | LABORATORY | | + + + + + + | RDW-SD | 41.1 | 37 - 53 fl | [facility] | | | | | | LABORATORY | | + + + + + + | Platelet | 287 | 150 - 400 K/uL | [facility] | | | Count | | | LABORATORY | | + + + + + + | MPV | 8.5 | fl | [facility] | | | | | | LABORATORY | | + + + + + + | Diff Type | AUTOMATED | | [facility] | | | | | | LABORATORY | | + + + + + + | % | 73.00 | % | [facility] | | | Neutrophils | | | LABORATORY | | + + + + + + | % | 15.11 | % | [facility] | | | Lymphocytes | | | LABORATORY | | + + + + + + | Monocyte % | 11.08 | % | [facility] | | | | | | LABORATORY | | + + + + + + | Eosinophils | 0.08 | % | [facility] | | | % | | | LABORATORY | | + + + + + + | Basophils % | 0.73 | % | [facility] | | | | | | LABORATORY | | + + + + + + | Neutrophils | 10.92 (H) | 1.90 - 7.40 | [facility] | | | , Absolute | | K/uL | LABORATORY | | + + + + + + | Absolute | 2.26 | 1.00 - 3.90 | [facility] | | | Lymphocytes | | K/uL | LABORATORY | | + + + + + + | Absolute | 1.66 (H) | 0.00 - 0.80 | [facility] | | | Monocytes | | K/uL | LABORATORY | | + + + + + + | Eosinophils | 0.01 | 0.00 - 0.50 | [facility] | | | , Absolute | | K/uL | LABORATORY | | + + + + + + | Basophils, | 0.11 (H)Comment: Testing | 0.00 - 0.10 | [facility] | | | Absolute | performed at [facility];[address] | [address] | LABORATORY | | | | [address];[place] | | | | | | [address] | | | | + + + + + + + + | Specimen | + + | | + + + + + + + | Performing | Address | City/State/Zipcode | Phone Number | | Organization | | | | + + + + + | [facility] | [address] | [place] [address] | [phone] | + + + + + Basic Metabolic Panel (04/28/2019 6:27 AM PDT) + + + + + + | Component | Value | Ref Range | Performed | Pathologist | | | | | At | Signature | + + + + + + | Na | 139 | 135 - 145 | [facility] | | | | | mmol/L | LABORATORY | | + + + + + + | K | 4.2 | 3.5 - 4.9 | [facility] | | | | | mmol/L | LABORATORY | | + + + + + + | Cl | 101 | 99 - 109 mmol/L | [facility] | | | | | | LABORATORY | | + + + + + + | CO2 | 27 | 23 - 32 mmol/L | [facility] | | | | | | LABORATORY | | + + + + + + | Anion Gap | 15 | 5 - 20 mmol/L | [facility] | | | | | | LABORATORY | | + + + + + + | Glucose | 161 (H) | 65 - 99 mg/dL | [facility] | | | | | | LABORATORY | | + + + + + + | BUN | 10 | 8 - 25 mg/dL | [facility] | | | | | | LABORATORY | | + + + + + + | Creatinine | 0.88 | 0.70 - 1.30 | [facility] | | | | | mg/dL | LABORATORY | | + + + + + + | BUN/Creatin | 11 | | [facility] | | | ine Ratio | | | LABORATORY | | + + + + + + | Calcium | 9.5 | 8.5 - 10.5 | [facility] | | | | | mg/dL | LABORATORY | | + + + + + + | Estimated | >60Comment: GFR <60: | >60 | [facility] | | | GFR | CHRONIC KIDNEY DISEASE, | mL/min/1.73m2 | LABORATORY | | | | IF FOUND OVER A 3 MONTH | | | | | | PERIOD.GFR <15: KIDNEY | | | | | | FAILURE.FOR | | | | | | AMERICANS, MULTIPLY THE | | | | | | CALCULATED GFR BY | | | | | | 1.210.This eGFR is | | | | | | calculated using the | | | | | | MDRD IDAL traceable | | | | | | equation.Testing | | | | | | performed at [facility];[address] | | | | | | [facility];[place], [place] | | | | | | [address] | | | | + + + + + + + + | Specimen | + + | Blood | + + + + + + + | Performing | Address | City/State/Zipcode | Phone Number | | Organization | | | | + + + + + | [facility] | [address] | [place] [address] | [phone] | + + + + + Basic Metabolic Panel (04/27/2019 6:54 AM PDT) + + + + + + | Component | Value | Ref Range | Performed | Pathologist | | | | | At | Signature | + + + + + + | Na | 140 | 135 - 145 | [facility] | | | | | mmol/L | LABORATORY | | + + + + + + | K | 3.9 | 3.5 - 4.9 | [facility] | | | | | mmol/L | LABORATORY | | + + + + + + | Cl | 102 | 99 - 109 mmol/L | [facility] | | | | | | LABORATORY | | + + + + + + | CO2 | 30 | 23 - 32 mmol/L | [facility] | | | | | | LABORATORY | | + + + + + + | Anion Gap | 12 | 5 - 20 mmol/L | [facility] | | | | | | LABORATORY | | + + + + + + | Glucose | 99 | 65 - 99 mg/dL | [facility] | | | | | | LABORATORY | | + + + + + + | BUN | 10 | 8 - 25 mg/dL | [facility] | | | | | | LABORATORY | | + + + + + + | Creatinine | 0.70 | 0.70 - 1.30 | [facility] | | | | | mg/dL | LABORATORY | | + + + + + + | BUN/Creatin | 14 | | [facility] | | | ine Ratio | | | LABORATORY | | + + + + + + | Calcium | 9.0 | 8.5 - 10.5 | [facility] | | | | | mg/dL | LABORATORY | | + + + + + + | Estimated | >60Comment: GFR <60: | >60 | [facility] | | | GFR | CHRONIC KIDNEY DISEASE, | mL/min/1.73m2 | LABORATORY | | | | IF FOUND OVER A 3 MONTH | | | | | | PERIOD.GFR <15: KIDNEY | | | | | | FAILURE.FOR | | | | | | AMERICANS, MULTIPLY THE | | | | | | CALCULATED GFR BY | | | | | | 1.210.This eGFR is | | | | | | calculated using the | | | | | | MDRD IDMS traceable | | | | | | equation.Testing | | | | | | performed at [facility] | | | | | | [facility];[place], [place] | | | | | | [address] | | | | + + + + + + + + | Specimen | + + | Blood | + + + + + + + | Performing | Address | City/State/Zipcode | Phone Number | | Organization | | | | + + + + + | [facility] | [address] | [place] [address] | [phone] | + + + + + CBC with Differential (04/27/2019 6:54 AM PDT) + + + + + + | Component | Value | Ref Range | Performed | Pathologist | | | | | At | Signature | + + + + + + | WBC | 10.99 | 3.80 - 11.00 | [facility] | | | | | K/uL | LABORATORY | | + + + + + + | RBC | 4.10 (L) | 4.20 - 5.70 | [facility] | | | | | M/uL | LABORATORY | | + + + + + + | Hemoglobin | 11.7 (L) | 13.2 - 17.0 | [facility] | | | | | g/dL | LABORATORY | | + + + + + + | Hematocrit | 34.0 (L) | 39.0 - 50.0 % | [facility] | | | | | | LABORATORY | | + + + + + + | MCV | 83.0 | 80.0 - 100.0 fl | [facility] | | | | | | LABORATORY | | + + + + + + | MCH | 28.6 | 27.0 - 34.0 pg | [facility] | | | | | | LABORATORY | | + + + + + + | MCHC | 34.5 | 32.0 - 35.5 | [facility] | | | | | g/dL | LABORATORY | | + + + + + + | RDW-SD | 40.7 | 37 - 53 fl | [facility] | | | | | | LABORATORY | | + + + + + + | Platelet | 248 | 150 - 400 K/uL | [facility] | | | Count | | | LABORATORY | | + + + + + + | MPV | 8.1 | fl | [facility] | | | | | | LABORATORY | | + + + + + + | Diff Type | AUTOMATED | | [facility] | | | | | | LABORATORY | | + + + + + + | % | 59.86 | % | [facility] | | | Neutrophils | | | LABORATORY | | + + + + + + | % | 27.06 | % | [facility] | | | Lymphocytes | | | LABORATORY | | + + + + + + | Monocyte % | 10.62 | % | [facility] | | | | | | LABORATORY | | + + + + + + | Eosinophils | 1.22 | % | [facility] | | | % | | | LABORATORY | | + + + + + + | Basophils % | 1.24 | % | [facility] | | | | | | LABORATORY | | + + + + + + | Neutrophils | 6.58 | 1.90 - 7.40 | [facility] | | | , Absolute | | K/uL | LABORATORY | | + + + + + + | Absolute | 2.97 | 1.00 - 3.90 | [facility] | | | Lymphocytes | | K/uL | LABORATORY | | + + + + + + | Absolute | 1.17 (H) | 0.00 - 0.80 | [facility] | | | Monocytes | | K/uL | LABORATORY | | + + + + + + | Eosinophils | 0.14 | 0.00 - 0.50 | [facility] | | | , Absolute | | K/uL | LABORATORY | | + + + + + + | Basophils, | 0.14 (H)Comment: Testing | 0.00 - 0.10 | [facility] | | | Absolute | performed at [facility];[address] | [address] | LABORATORY | | | | [address];[place], [place] | | | | | | [address] | | | | + + + + + + + + | Specimen | + + | Blood | + + + + + + + | Performing | Address | City/State/Zipcode | Phone Number | | Organization | | | | + + + + + | [facility] | [address] | [place] [address] | [phone] | + + + + + Potassium (04/27/2019 4:16 AM PDT) + + + + + + | Component | Value | Ref Range | Performed | Pathologist | | | | | At | Signature | + + + + + + | K | 4.1Comment: Testing | 3.5 - 4.9 | [facility] | | | | performed at [facility];[address] | mmol/L | LABORATORY | | | | [address];[place], [place] | | | | | | [address] | | | | + + + + + + + + | Specimen | + + | Blood | + + + + + + + | Performing | Address | City/State/Zipcode | Phone Number | | Organization | | | | + + + + + | [facility] | [address] | [place] [address] | [phone] | + + + + + Potassium (04/26/2019 4:06 AM PDT) + + + + + + | Component | Value | Ref Range | Performed | Pathologist | | | | | At | Signature | + + + + + + | K | 3.8Comment: Testing | 3.5 - 4.9 | [facility] | | | | performed at [facility];[address] | mmol/L | LABORATORY | | | | [address];[place], [place] | | | | | | [address] | | | | + + + + + + + + | Specimen | + + | Blood | + + + + + + + | Performing | Address | City/State/Zipcode | Phone Number | | Organization | | | | + + + + + | [facility] | [address] | [place] [address] | [phone] | + + + + + Potassium (04/25/2019 4:36 AM PDT) + + + + + + | Component | Value | Ref Range | Performed | Pathologist | | | | | At | Signature | + + + + + + | K | 4.1Comment: Testing | 3.5 - 4.9 | [facility] | | | | performed at [facility];[address] | mmol/L | LABORATORY | | | | [address];[place] | | | | | | [address] | | | | + + + + + + + + | Specimen | + + | Blood | + + + + + + + | Performing | Address | City/State/Zipcode | Phone Number | | Organization | | | | + + + + + | [facility] | [address] | [place] [address] | [phone] | + + + + + Culture, Wound, Smear, w/Anaerobe (04/24/2019 2:40 PM PDT) + + + + + + | Component | Value | Ref Range | Performed | Pathologist | | | | | At | Signature | + + + + + + | Gram Stain | 3+ | | [facility] | | | Result | WBC'S SEEN | | LABORATORY | | | | | | | | + + + + + + | Gram Stain | 4+ | | [facility] | | | Result | GRAM POSITIVE COCCI | | LABORATORY | | | | | | | | + + + + + + | Gram Stain | Testing performed at | | [facility] | | | Result | [facility], [address] | | LABORATORY | | | | [place] | | | | | | [address] | | | | + + + + + + | RESULT | 4+METHICILLIN RESISTANT | | [facility] | | | | S. AUREUS (MRSA) (A) | | LABORATORY | | | | (A) | | | | + + + + + + + + | Specimen | + + | | + + + + +--------+ + | Organism | Antibiotic | Method | Susceptibility | + + +--------+ + | Staphylococcus | Clindamycin | PATRICK | SUSCEPTIBLE: | | aureus,Methicillin | | | Sensitive | | resistant (MRSA) | | | | + + +--------+ + | Staphylococcus | Erythromycin | PATRICK | RESISTANT: | | aureus,Methicillin | | | Resistant | | resistant (MRSA) | | | | + + +--------+ + | Staphylococcus | Gentamicin | PATRICK | SUSCEPTIBLE: | | aureus,Methicillin | | | Sensitive | | resistant (MRSA) | | | | + + +--------+ + | Staphylococcus | Levofloxacin | PATRICK | RESISTANT: | | aureus,Methicillin | | | Resistant | | resistant (MRSA) | | | | + + +--------+ + | Staphylococcus | Moxifloxacin | PATRICK | INTERMEDIATE: | | aureus,Methicillin | | | Intermediate | | resistant (MRSA) | | | | + + +--------+ + | Staphylococcus | Oxacillin | PATRICK | RESISTANT: | | aureus,Methicillin | | | Resistant | | resistant (MRSA) | | | | + + +--------+ + | Staphylococcus | Tetracycline | PATRICK | SUSCEPTIBLE: | | aureus,Methicillin | | | Sensitive | | resistant (MRSA) | | | | + + +--------+ + | Staphylococcus | Trimethoprim + | PATRICK | SUSCEPTIBLE: | | aureus,Methicillin | Sulfamethoxazole | | Sensitive | | resistant (MRSA) | | | | + + +--------+ + | Staphylococcus | Vancomycin | PATRICK | SUSCEPTIBLE: | | aureus,Methicillin | | | Sensitive | | resistant (MRSA) | | | | + + +--------+ + +---+ + | | Comment: Testing | | | performed at [facility], | | | [address] [facility] | | | [place] | | | [address] | +---+ + + + + + + | Performing | Address | City/State/Zipcode | Phone Number | | Organization | | | | + + + + + | [facility] | [address] | [place] [address] | [phone] | + + + + + CT Guided Drain Abscess Renal (04/24/2019 2:32 PM PDT) + + | Specimen | + + | | + + + + + | Impressions | Performed At | + + + | Uncomplicated drainage of left pararenal abscess. 8 mL of | [facility] | | hemorrhagic and purulent fluid was aspirated. A 10 Spanish locking | | | pigtail catheter is placed. Signed by: Liza Zeng, | | | Arnold Sign Date/Time: 04/24/2019 2:56 PM | | + + + + + + | Narrative | Performed At | + + + | CT GUIDED DRAINAGE LEFT PARARENAL ABSCESS CLINICAL | [facility] | | INFORMATION: Residual undrained left renal collection PROCEDURE: | | | Prior to the procedure, risks and benefits were explained to the | | | patient and informed written and verbal consent obtained. Patient was | | | placed on the CT gantry and initial localizing scans were performed. | | | Using lidocaine for local anesthesia and intravenous sedation, the | | | region is punctured under CT guidance. Aspiration was performed | | | yielding 8 mL of hemorrhagic and purulent fluid. The specimen was | | | submitted to the laboratory for Gram stain and culture. An 0.35 | | | guide wire is placed into the collection and the tract dilated up to | | | 10 Spanish. A 10 Spanish catheter is then placed over the wire. | | | Patient tolerated the procedure well. No immediate complications. | | | Conscious sedation was administered. The nurse administered | | | for 47 minutes, 200 mcg fentanyl and 4 mg Versed used for sedation. | | | The patient was monitored by the nurse during the examination and | | | monitored blood pressure, heart rate, and pulse oximeter. Physician | | | intraservice time of 47 minutes. Estimated Blood Loss: Less than | | | 10 cc's. At least one of the following CT dose optimization | | | techniques were used: Automated exposure control; Adjustment of mA | | | and/or kV according to patient size; Use of iterative reconstruction | | | technique. | | + + + + + | Procedure Note | + + | Reynaldo, Rad Results In - 04/24/2019 3:00 PM PDT | | CT GUIDED DRAINAGE LEFT PARARENAL ABSCESS | | | | CLINICAL INFORMATION: | | Residual undrained left renal collection | | | | PROCEDURE: | | Prior to the procedure, risks and benefits were explained to the | | patient and informed written and verbal consent obtained. Patient was | | placed on the CT gantry and initial localizing scans were performed. | | Using lidocaine for local anesthesia and intravenous sedation, the | | region is punctured under CT guidance. Aspiration was performed | | yielding 8 mL of hemorrhagic and purulent fluid. The specimen was | | submitted to the laboratory for Gram stain and culture. | | | | An 0.35 guide wire is placed into the collection and the tract dilated | | up to 10 Spanish. A 10 Spanish catheter is then placed over the wire. | | Patient tolerated the procedure well. No immediate complications. | | | | | | | | Conscious sedation was administered. The nurse administered for 47 | | minutes, 200 mcg fentanyl and 4 mg Versed used for sedation. The | | patient was monitored by the nurse during the examination and monitored | | blood pressure, heart rate, and pulse oximeter. Physician intraservice | | time of 47 minutes. | | | | Estimated Blood Loss: Less than 10 cc's. | | | | At least one of the following CT dose optimization techniques were | | used: Automated exposure control; Adjustment of mA and/or kV according | | to patient size; Use of iterative reconstruction technique. | | | | IMPRESSION: | | Uncomplicated drainage of left pararenal abscess. 8 mL of hemorrhagic | | and purulent fluid was aspirated. A 10 Spanish locking pigtail catheter | | is placed. | | | | | | | | Signed by: Liza Zeng, Arnold | | Sign Date/Time: 04/24/2019 2:56 PM | + + + +---------+ + + | Performing | Address | City/State/Zipcode | Phone Number | | Organization | | | | + +---------+ + + | [facility] | | | | + +---------+ + + PTT (04/24/2019 3:55 AM PDT) + + + + + + | Component | Value | Ref Range | Performed | Pathologist | | | | | At | Signature | + + + + + + | PTT | 33 (H)Comment: Testing | 23 - 32 seconds | [facility] | | | | performed at [facility];[address] | | LABORATORY | | | | [address];[place] | | | | | | [address] | | | | + + + + + + + + | Specimen | + + | Blood | + + + + + + + | Performing | Address | City/State/Zipcode | Phone Number | | Organization | | | | + + + + + | [facility] | [address] | [place] [address] | [phone] | + + + + + Protime INR (04/24/2019 3:55 AM PDT) + + + + + + | Component | Value | Ref Range | Performed | Pathologist | | | | | At | Signature | + + + + + + | INR | 1.0Comment: REFERENCE | | [facility] | | | | RANGE:0.9 - 1.2 | | LABORATORY | | | | NON-ANTICOAGULATED2.0 | | | | | | - 3.0 ALL OTHER | | | | | | THERAPEUTIC | | | | | | INDICATIONS2.5 - 3.5 | | | | | | MECHANICAL HEART VALVES, | | | | | | RECURRENT OR SYSTEMIC | | | | | | EMBOLISMTesting | | | | | | performed at [facility] | | | | | | [facility];[place], [place] | | | | | | [address] | | | | + + + + + + + + | Specimen | + + | Blood | + + + + + + + | Performing | Address | City/State/Zipcode | Phone Number | | Organization | | | | + + + + + | [facility] | [address] | [place] [address] | [phone] | + + + + + Potassium (04/23/2019 5:26 AM PDT) + + + + + + | Component | Value | Ref Range | Performed | Pathologist | | | | | At | Signature | + + + + + + | K | 4.1Comment: Testing | 3.5 - 4.9 | [facility] | | | | performed at [facility];[address] | mmol/L | LABORATORY | | | | [address];[place] | | | | | | [address] | | | | + + + + + + + + | Specimen | + + | Blood | + + + + + + + | Performing | Address | City/State/Zipcode | Phone Number | | Organization | | | | + + + + + | [facility] | [address] | [place] [address] | [phone] | + + + + + Potassium (04/22/2019 5:57 AM PDT) + + + + + + | Component | Value | Ref Range | Performed | Pathologist | | | | | At | Signature | + + + + + + | K | 4.1Comment: Testing | 3.5 - 4.9 | [facility] | | | | performed at [facility];[address] | mmol/L | LABORATORY | | | | [address];[place], [place] | | | | | | [address] | | | | + + + + + + + + | Specimen | + + | Blood | + + + + + + + | Performing | Address | City/State/Zipcode | Phone Number | | Organization | | | | + + + + + | [facility] | [address] [facility] [facility] | [place] [address] | [phone] | + + + + + Potassium (04/21/2019 5:52 PM PDT) + + + + + + | Component | Value | Ref Range | Performed | Pathologist | | | | | At | Signature | + + + + + + | K | 4.0Comment: Testing | 3.5 - 4.9 | [facility] | | | | performed at [facility];[address] | mmol/L | LABORATORY | | | | [address];[place] | | | | | | [address] | | | | + + + + + + + + | Specimen | + + | Blood | + + + + + + + | Performing | Address | City/State/Zipcode | Phone Number | | Organization | | | | + + + + + | [facility] | [address] | [place] [address] | [phone] | + + + + + Potassium (04/21/2019 5:45 AM PDT) + + + + + + | Component | Value | Ref Range | Performed | Pathologist | | | | | At | Signature | + + + + + + | K | 3.8Comment: Testing | 3.5 - 4.9 | [facility] | | | | performed at [facility];[address] | mmol/L | LABORATORY | | | | [address];[place], [place] | | | | | | [address] | | | | + + + + + + + + | Specimen | + + | Blood | + + + + + + + | Performing | Address | City/State/Zipcode | Phone Number | | Organization | | | | + + + + + | [facility] | [address] | [place] [address] | [phone] | + + + + + ECHO Complete (04/20/2019 2:44 PM PDT) + +--------+ + + + | Component | Value | Ref Range | Performed | Pathologist | | | | | At | Signature | + +--------+ + + + | LVEF-TTE | 65 | % | [facility] | | | TRANSTHORAC | | | | | | IC ECHO | | | | | + +--------+ + + + | BASELINE | 138/84 | mmHg | [facility] | | | BLOOD | | | | | | PRESSURE | | | | | + +--------+ + + + | Patient | 203 lb | | [facility] | | | Weight | | | | | | (lbs) | | | | | + +--------+ + + + | Patient | 6'2 | | [facility] | | | Height | | | | | + +--------+ + + + | LVIDd | 4.32 | cm | [facility] | | + +--------+ + + + | FS | 29 | % | [facility] | | + +--------+ + + + | LA volume | 38.96 | mL | [facility] | | + +--------+ + + + | AV mean | 4.7 | mmHg | [facility] | | | gradient | | | | | + +--------+ + + + | Aortic | 3.59 | cm2 | [facility] | | | Valve Area | | | | | | by | | | | | | Continuity | | | | | | VTI | | | | | + +--------+ + + + | PV peak | 3.83 | mmHg | [facility] | | | gradient | | | | | + +--------+ + + + | LVOT | 2.29 | cm | [facility] | | | diameter | | | | | + +--------+ + + + | LVOT peak | 115.07 | cm/s | [facility] | | | jeannie | | | | | + +--------+ + + + | LVOT peak | 21.89 | cm | [facility] | | | VTI | | | | | + +--------+ + + + | AV peak jeannie | 132.7 | cm/s | [facility] | | + +--------+ + + + | AV VTI | 25.1 | cm | [facility] | | + +--------+ + + + | AV peak | 7.04 | mmHg | [facility] | | | gradient | | | | | + +--------+ + + + | LA Volume | 18 | mL/m2 | [facility] | | | Index | | | | | + +--------+ + + + | AV LVOT | 5.3 | mmHg | [facility] | | | Peak | | | | | | Gradient | | | | | + +--------+ + + + | AV LVOT | 3.36 | mmHg | [facility] | | | Mean | | | | | | Gradient | | | | | + +--------+ + + + | RV Free | 15.58 | cm/s | [facility] | | | Wall Peak | | | | | | S' | | | | | + +--------+ + + + | PI Peak | 97.84 | cm/s | [facility] | | | Velocity | | | | | + +--------+ + + + | RV | 2.7 | cm | [facility] | | | Diastolic | | | | | | Basal | | | | | | Diameter | | | | | + +--------+ + + + | LVOT Mean | 88.14 | cm/s | [facility] | | | Velocity | | | | | + +--------+ + + + | MV | 193.41 | msec | [facility] | | | Deceleratio | | | | | | n Time | | | | | + +--------+ + + + | MV E/A | 1.5 | | [facility] | | | Ratio | | | | | + +--------+ + + + | MV Peak | 56.78 | cm/s | [facility] | | | A-Wave | | | | | + +--------+ + + + | MV Peak | 84.93 | cm/s | [facility] | | | E-Wave | | | | | + +--------+ + + + | AV Mean | 105.95 | cm/s | [facility] | | | Velocity | | | | | + +--------+ + + + | RA Area | 12.28 | cm2 | [facility] | | + +--------+ + + + | LA Major | 0.251 | cm | [facility] | | + +--------+ + + + | Cardiac | 6.94 | l/min | [facility] | | | Output | | | | | + +--------+ + + + | Cardiac | 3.17 | l/min/m2 | [facility] | | | Index | | | | | + +--------+ + + + | Heart Rate | 80 | | [facility] | | + +--------+ + + + | IVS | 1.26 | cm | [facility] | | | Diastolic | | | | | | Thickness | | | | | | MM | | | | | + +--------+ + + + | LVPW | 1.28 | cm | [facility] | | | Diastolic | | | | | | Thickness | | | | | | MM | | | | | + +--------+ + + + | IVS | 1.59 | cm | [facility] | | | Systolic | | | | | | Thickness | | | | | | MM | | | | | + +--------+ + + + | LV Systolic | 3.07 | cm | [facility] | | | Diameter | | | | | | MM | | | | | + +--------+ + + + | LVPW | 2.04 | cm | [facility] | | | Systolic | | | | | | Thickness | | | | | | MM | | | | | + +--------+ + + + | TAPSE | 2.94 | cm | [facility] | | + +--------+ + + + | RA PRESSURE | 8 | mmHg | [facility] | | + +--------+ + + + + + | Specimen | + + | | + + + + + | Narrative | Performed At | + + + | This is a | [facility] | | normal echocardiographic study. The left ventricular ejection | | | fraction is 65%. Normal right ventricular systolic function. No | | | significant valvular abnormalities are noted. | | | | | + + + + +---------+ + + | Performing | Address | City/State/Zipcode | Phone Number | | Organization | | | | + +---------+ + + | [facility] | | | | + +---------+ + + CT Abdomen Pelvis w Contrast (04/20/2019 11:08 AM PDT) + + | Specimen | + + | | + + + + + | Impressions | Performed At | + + + | 1. Pigtail catheter now centrally located in the central | [facility] | | phlegmonous section of the mid lower pole of the left kidney | | | Marked local inflammatory changes and edema. Preexistent and within | | | the spectrum of expected evolving findings with severe renal | | | infection and intervention 2. Pimento like perinephric | | | inflammatory fluid collection inferior to the lower pole of the left | | | kidney. An appreciable collection of stable infected fluid, not | | | seemingly drained by the catheter. 3. Marked but stable | | | retroperitoneal lymphadenopathy and marked confluent lymphadenopathy | | | in the gerson hepatitis. 4. Periportal edema and | | | hepatosplenomegaly Signed by: Liza Alex Timothy Sign | | | Date/Time: 04/20/2019 1:36 PM | | + + + + + + | Narrative | Performed At | + + + | CT ABDOMEN AND PELVIS WITH CONTRAST CLINICAL INFORMATION: | [facility] | | Abdominal infection suspected. follow-up renal and perirenal | | | abscesses, r/o abdominal abscess. COMPARISON: CT GUIDED DRAIN | | | ABSCESS (04/16/2019); CT ABDOMEN W CONTRAST (04/15/2019); CT GUIDED | | | DRAIN ABSCESS (04/12/2019); PROCEDURE: Axial images through the | | | abdomen and pelvis after the administration of 100 ml Omnipaque 350 | | | intravenous contrast. Multiplanar reconstructions. At least one of | | | the following CT dose optimization techniques were used: Automated | | | exposure control; Adjustment of mA and/or kV according to patient | | | size; Use of iterative reconstruction technique. FINDINGS: LUNG | | | BASES: No significant pulmonary abnormality. No pleural effusion or | | | pneumothorax. Some asymmetric scarring in the right lung base. | | | Stable. ABDOMEN Liver and Biliary: No solid hepatic lesion, but | | | there is diffuse periportal edema. No cirrhosis. Vascular | | | enhancement. Measures 24 cm in the superior inferior dimension at | | | the level of the midclavicular line. Gallbladder not distended, | | | no gallstones or pericholecystic fluid. Pancreas: Normal to | | | technique without peripancreatic fluid collection or intrinsic lesion | | | Spleen: Marked splenomegaly but without nearby fluid or adjacent | | | lesion. Measures about 15 x 8 x 16 cm. Normal adrenals Kidneys: | | | Structurally normal right kidney. Left kidney: Known | | | intrasubstance parenchymal abscess in the midbody in lower pole of | | | the left kidney, now approximated by pigtail catheter. The fluid | | | collection immediately inferior to the left kidney measures about 3.7 | | | by 3.7 by 1.9 cm and may not be drained by the catheter. With | | | marked inflammatory changes in the anterior para and perinephric | | | renal spaces on the left and the pole left kidney seems edematous and | | | somewhat enlarged-especially the lower pole. Likely postprocedural | | | gas about the catheter ABDOMEN AND PELVIS Bowel: No small bowel | | | or colonic dilation or adjacent inflammation. No appendiceal dilation | | | or inflammation. Vessels: No significant abnormality in the aorta or | | | its proximal branches. No significant abnormality in the portal | | | veins, mesenteric veins or systemic veins. Lymph Nodes: Marked | | | periaortic retroperitoneal lymphadenopathy and marked confluent | | | lymphadenopathy at the gerson hepatitis. Compared to the prior | | | examination, these findings are preexistent, and stable to technique. | | | No free air. No ascites. PELVIS Genitourinary: Distal ureters | | | and bladder appear normal. No pelvic masses. BODY WALL Soft | | | Tissues: No bowel or inflamed fat containing hernia, mass or | | | hemorrhage. Bones: Focal disc endplate disease at L4-5 with | | | osteophytosis, subchondral sclerosis and cystic changes | | + + + + + | Procedure Note | + + | Reynaldo, Rad Results In - 04/20/2019 1:40 PM PDT | | CT ABDOMEN AND PELVIS WITH CONTRAST | | | | CLINICAL INFORMATION: | | Abdominal infection suspected. follow-up renal and perirenal abscesses, | | r/o abdominal abscess. | | | | COMPARISON: | | CT GUIDED DRAIN ABSCESS (04/16/2019); CT ABDOMEN W CONTRAST | | (04/15/2019); CT GUIDED DRAIN ABSCESS (04/12/2019); | | | | PROCEDURE: | | Axial images through the abdomen and pelvis after the administration of | | 100 ml Omnipaque 350 intravenous contrast. Multiplanar reconstructions. | | | | At least one of the following CT dose optimization techniques were | | used: Automated exposure control; Adjustment of mA and/or kV according | | to patient size; Use of iterative reconstruction technique. | | | | FINDINGS: | | LUNG BASES: No significant pulmonary abnormality. No pleural effusion | | or pneumothorax. Some asymmetric scarring in the right lung base. | | Stable. | | | | ABDOMEN | | Liver and Biliary: No solid hepatic lesion, but there is diffuse | | periportal edema. No cirrhosis. Vascular enhancement. Measures 24 cm | | in the superior inferior dimension at the level of the midclavicular | | line. | | | | Gallbladder not distended, no gallstones or pericholecystic fluid. | | | | Pancreas: Normal to technique without peripancreatic fluid collection | | or intrinsic lesion | | Spleen: Marked splenomegaly but without nearby fluid or adjacent | | lesion. Measures about 15 x 8 x 16 cm. | | Normal adrenals | | | | Kidneys: Structurally normal right kidney. | | | | Left kidney: Known intrasubstance parenchymal abscess in the midbody in | | lower pole of the left kidney, now approximated by pigtail catheter. | | The fluid collection immediately inferior to the left kidney measures | | about 3.7 by 3.7 by 1.9 cm and may not be drained by the catheter. | | | | With marked inflammatory changes in the anterior para and perinephric | | renal spaces on the left and the pole left kidney seems edematous and | | somewhat enlarged-especially the lower pole. Likely postprocedural gas | | about the catheter | | | | ABDOMEN AND PELVIS | | Bowel: No small bowel or colonic dilation or adjacent inflammation. No | | appendiceal dilation or inflammation. | | Vessels: No significant abnormality in the aorta or its proximal | | branches. No significant abnormality in the portal veins, mesenteric | | veins or systemic veins. | | | | Lymph Nodes: Marked periaortic retroperitoneal lymphadenopathy and | | marked confluent lymphadenopathy at the gerson hepatitis. | | | | Compared to the prior examination, these findings are preexistent, and | | stable to technique. | | No free air. No ascites. | | | | PELVIS | | Genitourinary: Distal ureters and bladder appear normal. No pelvic | | masses. | | | | BODY WALL | | Soft Tissues: No bowel or inflamed fat containing hernia, mass or | | hemorrhage. | | Bones: Focal disc endplate disease at L4-5 with osteophytosis, | | subchondral sclerosis and cystic changes | | | | IMPRESSION: | | 1. Pigtail catheter now centrally located in the central phlegmonous | | section of the mid lower pole of the left kidney | | | | Marked local inflammatory changes and edema. Preexistent and within | | the spectrum of expected evolving findings with severe renal infection | | and intervention | | | | 2. Pimento like perinephric inflammatory fluid collection inferior to | | the lower pole of the left kidney. An appreciable collection of stable | | infected fluid, not seemingly drained by the catheter. | | | | 3. Marked but stable retroperitoneal lymphadenopathy and marked | | confluent lymphadenopathy in the gerson hepatitis. | | | | 4. Periportal edema and hepatosplenomegaly | | | | | | | | Signed by: AbiLiza Timothy | | Sign Date/Time: 04/20/2019 1:36 PM | + + + +---------+ + + | Performing | Address | City/State/Zipcode | Phone Number | | Organization | | | | + +---------+ + + | [facility] | | | | + +---------+ + + Potassium (04/20/2019 4:09 AM PDT) + + + + + + | Component | Value | Ref Range | Performed | Pathologist | | | | | At | Signature | + + + + + + | K | 4.3Comment: Testing | 3.5 - 4.9 | [facility] | | | | performed at [facility];[address] | mmol/L | LABORATORY | | | | [address];[place], [place] | | | | | | [address] | | | | + + + + + + + + | Specimen | + + | Blood | + + + + + + + | Performing | Address | City/State/Zipcode | Phone Number | | Organization | | | | + + + + + | [facility] | [address] | [place] [address] | [phone] | + + + + + Potassium (04/19/2019 5:36 AM PDT) + + + + + + | Component | Value | Ref Range | Performed | Pathologist | | | | | At | Signature | + + + + + + | K | 4.3Comment: Testing | 3.5 - 4.9 | [facility] | | | | performed at [facility];[address] | mmol/L | LABORATORY | | | | [address];[place] | | | | | | [address] | | | | + + + + + + + + | Specimen | + + | Blood | + + + + + + + | Performing | Address | City/State/Zipcode | Phone Number | | Organization | | | | + + + + + | [facility] | [address] | [place] [address] | [phone] | + + + + + Basic Metabolic Panel (04/18/2019 5:39 AM PDT) + + + + + + | Component | Value | Ref Range | Performed | Pathologist | | | | | At | Signature | + + + + + + | Na | 136 | 135 - 145 | [facility] | | | | | mmol/L | LABORATORY | | + + + + + + | K | 4.0 | 3.5 - 4.9 | [facility] | | | | | mmol/L | LABORATORY | | + + + + + + | Cl | 101 | 99 - 109 mmol/L | [facility] | | | | | | LABORATORY | | + + + + + + | CO2 | 31 | 23 - 32 mmol/L | [facility] | | | | | | LABORATORY | | + + + + + + | Anion Gap | 8 | 5 - 20 mmol/L | [facility] | | | | | | LABORATORY | | + + + + + + | Glucose | 95 | 65 - 99 mg/dL | [facility] | | | | | | LABORATORY | | + + + + + + | BUN | 11 | 8 - 25 mg/dL | [facility] | | | | | | LABORATORY | | + + + + + + | Creatinine | 0.8 | 0.70 - 1.30 | [facility] | | | | | mg/dL | LABORATORY | | + + + + + + | BUN/Creatin | 14 | | [facility] | | | ine Ratio | | | LABORATORY | | + + + + + + | Calcium | 9.7 | 8.5 - 10.5 | [facility] | | | | | mg/dL | LABORATORY | | + + + + + + | Estimated | >60Comment: GFR <60: | >60 | [facility] | | | GFR | CHRONIC KIDNEY DISEASE, | mL/min/1.73m2 | LABORATORY | | | | IF FOUND OVER A 3 MONTH | | | | | | PERIOD.GFR <15: KIDNEY | | | | | | FAILURE.FOR | | | | | | AMERICANS, MULTIPLY THE | | | | | | CALCULATED GFR BY | | | | | | 1.210.This eGFR is | | | | | | calculated using the | | | | | | MDRD IDMS traceable | | | | | | equation.Testing | | | | | | performed at [facility], [address] | | | | | [facility], | | | | | | [place] [address] | | | | + + + + + + + + | Specimen | + + | Blood | + + + + + + + | Performing | Address | City/State/Zipcode | Phone Number | | Organization | | | | + + + + + | [facility] | [address] | [place] [address] | [phone] | + + + + + CBC with Differential (04/18/2019 5:39 AM PDT) + + + + + + | Component | Value | Ref Range | Performed | Pathologist | | | | | At | Signature | + + + + + + | WBC | 12.68 (H) | 3.80 - 11.00 | [facility] | | | | | K/uL | LABORATORY | | + + + + + + | RBC | 4.39 | 4.20 - 5.70 | [facility] | | | | | M/uL | LABORATORY | | + + + + + + | Hemoglobin | 12.8 (L) | 13.2 - 17.0 | [facility] | | | | | g/dL | LABORATORY | | + + + + + + | Hematocrit | 37.4 (L) | 39.0 - 50.0 % | [facility] | | | | | | LABORATORY | | + + + + + + | MCV | 85.1 | 80.0 - 100.0 fl | [facility] | | | | | | LABORATORY | | + + + + + + | MCH | 29.1 | 27.0 - 34.0 pg | [facility] | | | | | | LABORATORY | | + + + + + + | MCHC | 34.2 | 32.0 - 35.5 | [facility] | | | | | g/dL | LABORATORY | | + + + + + + | RDW-SD | 40.7 | 37 - 53 fl | [facility] | | | | | | LABORATORY | | + + + + + + | Platelet | 251 | 150 - 400 K/uL | [facility] | | | Count | | | LABORATORY | | + + + + + + | MPV | 9.6 | fl | [facility] | | | | | | LABORATORY | | + + + + + + | Diff Type | AUTOMATED | | [facility] | | | | | | LABORATORY | | + + + + + + | % | 71.70 | % | [facility] | | | Neutrophils | | | LABORATORY | | + + + + + + | % | 15.47 | % | [facility] | | | Lymphocytes | | | LABORATORY | | + + + + + + | Monocyte % | 11.76 | % | [facility] | | | | | | LABORATORY | | + + + + + + | Eosinophils | 0.83 | % | [facility] | | | % | | | LABORATORY | | + + + + + + | Basophils % | 0.24 | % | [facility] | | | | | | LABORATORY | | + + + + + + | Neutrophils | 9.09 (H) | 1.90 - 7.40 | [facility] | | | , Absolute | | K/uL | LABORATORY | | + + + + + + | Absolute | 1.96 | 1.00 - 3.90 | [facility] | | | Lymphocytes | | K/uL | LABORATORY | | + + + + + + | Absolute | 1.49 (H) | 0.00 - 0.80 | [facility] | | | Monocytes | | K/uL | LABORATORY | | + + + + + + | Eosinophils | 0.11 | 0.00 - 0.50 | [facility] | | | , Absolute | | K/uL | LABORATORY | | + + + + + + | Basophils, | 0.03Comment: Testing | 0.00 - 0.10 | [facility] | | | Absolute | performed at [facility], [address] | K/uL | LABORATORY | | | | [address], | | | | | | [place] [address] | | | | + + + + + + + + | Specimen | + + | Blood | + + + + + + + | Performing | Address | City/State/Zipcode | Phone Number | | Organization | | | | + + + + + | [facility] | [address] | [place] [address] | [phone] | + + + + + Basic Metabolic Panel (04/17/2019 5:59 AM PDT) + + + + + + | Component | Value | Ref Range | Performed | Pathologist | | | | | At | Signature | + + + + + + | Na | 136 | 135 - 145 | [facility] | | | | | mmol/L | LABORATORY | | + + + + + + | K | 4.2 | 3.5 - 4.9 | [facility] | | | | | mmol/L | LABORATORY | | + + + + + + | Cl | 99 | 99 - 109 mmol/L | [facility] | | | | | | LABORATORY | | + + + + + + | CO2 | 29 | 23 - 32 mmol/L | [facility] | | | | | | LABORATORY | | + + + + + + | Anion Gap | 12 | 5 - 20 mmol/L | [facility] | | | | | | LABORATORY | | + + + + + + | Glucose | 104 (H) | 65 - 99 mg/dL | [facility] | | | | | | LABORATORY | | + + + + + + | BUN | 8 | 8 - 25 mg/dL | [facility] | | | | | | LABORATORY | | + + + + + + | Creatinine | 0.8 | 0.70 - 1.30 | [facility] | | | | | mg/dL | LABORATORY | | + + + + + + | BUN/Creatin | 10 | | [facility] | | | ine Ratio | | | LABORATORY | | + + + + + + | Calcium | 9.6 | 8.5 - 10.5 | [facility] | | | | | mg/dL | LABORATORY | | + + + + + + | Estimated | >60Comment: GFR <60: | >60 | [facility] | | | GFR | CHRONIC KIDNEY DISEASE, | mL/min/1.73m2 | LABORATORY | | | | IF FOUND OVER A 3 MONTH | | | | | | PERIOD.GFR <15: KIDNEY | | | | | | FAILURE.FOR | | | | | | AMERICANS, MULTIPLY THE | | | | | | CALCULATED GFR BY | | | | | | 1.210.This eGFR is | | | | | | calculated using the | | | | | | MDRD IDMS traceable | | | | | | equation.Testing | | | | | | performed at [facility], [address] | | | | | | [address], | | | | | | [place] [address] | | | | + + + + + + + + | Specimen | + + | Blood | + + + + + + + | Performing | Address | City/State/Zipcode | Phone Number | | Organization | | | | + + + + + | [facility] | [address] | [place] [address] | [phone] | + + + + + CBC with Differential (04/17/2019 5:59 AM PDT) + + + + + + | Component | Value | Ref Range | Performed | Pathologist | | | | | At | Signature | + + + + + + | WBC | 16.22 (H) | 3.80 - 11.00 | [facility] | | | | | K/uL | LABORATORY | | + + + + + + | RBC | 4.34 | 4.20 - 5.70 | [facility] | | | | | M/uL | LABORATORY | | + + + + + + | Hemoglobin | 12.6 (L) | 13.2 - 17.0 | [facility] | | | | | g/dL | LABORATORY | | + + + + + + | Hematocrit | 37.0 (L) | 39.0 - 50.0 % | [facility] | | | | | | LABORATORY | | + + + + + + | MCV | 85.3 | 80.0 - 100.0 fl | [facility] | | | | | | LABORATORY | | + + + + + + | MCH | 28.9 | 27.0 - 34.0 pg | [facility] | | | | | | LABORATORY | | + + + + + + | MCHC | 33.9 | 32.0 - 35.5 | [facility] | | | | | g/dL | LABORATORY | | + + + + + + | RDW-SD | 39.4 | 37 - 53 fl | [facility] | | | | | | LABORATORY | | + + + + + + | Platelet | 273 | 150 - 400 K/uL | [facility] | | | Count | | | LABORATORY | | + + + + + + | MPV | 9.4 | fl | [facility] | | | | | | LABORATORY | | + + + + + + | Diff Type | AUTOMATED | | [facility] | | | | | | LABORATORY | | + + + + + + | % | 82.53 | % | [facility] | | | Neutrophils | | | LABORATORY | | + + + + + + | % | 7.87 | % | [facility] | | | Lymphocytes | | | LABORATORY | | + + + + + + | Monocyte % | 9.02 | % | [facility] | | | | | | LABORATORY | | + + + + + + | Eosinophils | 0.08 | % | [facility] | | | % | | | LABORATORY | | + + + + + + | Basophils % | 0.50 | % | [facility] | | | | | | LABORATORY | | + + + + + + | Neutrophils | 13.38 (H) | 1.90 - 7.40 | [facility] | | | , Absolute | | K/uL | LABORATORY | | + + + + + + | Absolute | 1.28 | 1.00 - 3.90 | [facility] | | | Lymphocytes | | K/uL | LABORATORY | | + + + + + + | Absolute | 1.46 (H) | 0.00 - 0.80 | [facility] | | | Monocytes | | K/uL | LABORATORY | | + + + + + + | Eosinophils | 0.01 | 0.00 - 0.50 | [facility] | | | , Absolute | | K/uL | LABORATORY | | + + + + + + | Basophils, | 0.08Comment: Testing | 0.00 - 0.10 | [facility] | | | Absolute | performed at [facility], [address] | K/uL | LABORATORY | | | | [address], | | | | | | [place] [address] | | | | + + + + + + + + | Specimen | + + | Blood | + + + + + + + | Performing | Address | City/State/Zipcode | Phone Number | | Organization | | | | + + + + + | [facility] | [address] | [place] [address] | [phone] | + + + + + CT Guided Drain Abscess (04/16/2019 4:33 PM PDT) + + | Specimen | + + | | + + + + + | Impressions | Performed At | + + + | Successful CT-guided left intraparenchymal renal abscess drainage. | [facility] | | Signed by: Liza Morataya, Sign Date/Time: 04/17/2019 | | | 6:59 AM | | + + + + + + | Narrative | Performed At | + + + | CT GUIDED LEFT KIDNEY ABSCESS DRAINAGE CLINICAL INFORMATION: | [facility] | | 34-year-old male with left renal abscess and perinephric abscess | | | status post perinephric abscess drainage. Patient continues to have | | | leukocytosis and intermittent fevers and drainage of the left | | | intraparenchymal renal abscess is requested. COMPARISON: None. | | | PROCEDURE: The risks, benefits and alternatives were discussed with | | | the patient; consent was obtained and placed in the patient's chart. | | | The risks included but were not limited to bleeding, infection, non | | | target organ injury. The patient was placed in the CT scanner and | | | imaging was obtained through the abdomen. A reproducible target | | | was demonstrated. The skin overlying the site of interest was | | | localized and marked. The skin was sterilely prepped and draped in | | | the usual fashion. Local lidocaine was administered in the skin and | | | underlying tissues. A wire was passed through the existing catheter | | | into the perinephric abscess. This collection was in line with the | | | intraparenchymal renal abscess. A new catheter with metal | | | stiffener was passed over the wire, the wire were removed, and | | | stylette introduced into the metal stiffener. The catheter was | | | advanced as a unit into the intraparenchymal renal abscess. The | | | inner stylet was removed, a wire was passed into the intra | | | parenchymal abscess, and images acquired confirming positioning. | | | Next, the metal stiffener was removed and the catheter advanced and | | | formed over the wire. The position was confirmed with CT and the | | | catheter was secured to the skin. The patient tolerated the | | | procedure well without complication. Conscious sedation was | | | administered. The nurse administered fentanyl medications during | | | the examination and monitored blood pressure, heart rate, and pulse | | | oximeter. Physician intraservice time of 30 minutes. At least one | | | of the following CT dose optimization techniques were used: Automated | | | exposure control; Adjustment of mA and/or kV according to patient | | | size; Use of iterative reconstruction technique. FINDINGS: CT | | | identified the intraparenchymal left renal abscess which was selected | | | for drainage. Intra procedural imaging confirmed appropriate | | | catheter placement. Post procedure imaging showed no evidence for | | | complication. | | + + + + + | Procedure Note | + + | Reynaldo, Rad Results In - 04/17/2019 7:03 AM PDT | | CT GUIDED LEFT KIDNEY ABSCESS DRAINAGE | | | | CLINICAL INFORMATION: | | 34-year-old male with left renal abscess and perinephric abscess status | | post perinephric abscess drainage. Patient continues to have | | leukocytosis and intermittent fevers and drainage of the left | | intraparenchymal renal abscess is requested. | | | | COMPARISON: | | None. | | | | PROCEDURE: | | The risks, benefits and alternatives were discussed with the patient; | | consent was obtained and placed in the patient's chart. The risks | | included but were not limited to bleeding, infection, non target organ | | injury. | | | | The patient was placed in the CT scanner and imaging was obtained | | through the abdomen. A reproducible target was demonstrated. The skin | | overlying the site of interest was localized and marked. The skin was | | sterilely prepped and draped in the usual fashion. Local lidocaine was | | administered in the skin and underlying tissues. A wire was passed | | through the existing catheter into the perinephric abscess. This | | collection was in line with the intraparenchymal renal abscess. A new | | catheter with metal stiffener was passed over the wire, the wire were | | removed, and stylette introduced into the metal stiffener. The | | catheter was advanced as a unit into the intraparenchymal renal | | abscess. The inner stylet was removed, a wire was passed into the | | intra parenchymal abscess, and images acquired confirming positioning. | | Next, the metal stiffener was removed and the catheter advanced and | | formed over the wire. The position was confirmed with CT and the | | catheter was secured to the skin. The patient tolerated the procedure | | well without complication. | | | | Conscious sedation was administered. The nurse administered fentanyl | | medications during the examination and monitored blood pressure, heart | | rate, and pulse oximeter. Physician intraservice time of 30 minutes. | | | | At least one of the following CT dose optimization techniques were | | used: Automated exposure control; Adjustment of mA and/or kV according | | to patient size; Use of iterative reconstruction technique. | | | | FINDINGS: | | CT identified the intraparenchymal left renal abscess which was | | selected for drainage. Intra procedural imaging confirmed appropriate | | catheter placement. Post procedure imaging showed no evidence for | | complication. | | | | IMPRESSION: | | Successful CT-guided left intraparenchymal renal abscess drainage. | | | | | | | | Signed by: Liza Morataya David | | Sign Date/Time: 04/17/2019 6:59 AM | + + + +---------+ + + | Performing | Address | City/State/Zipcode | Phone Number | | Organization | | | | + +---------+ + + | [facility] | | | | + +---------+ + + Culture, Body Fluid Sterile (04/16/2019 3:45 PM PDT) + + + + + + | Component | Value | Ref Range | Performed | Pathologist | | | | | At | Signature | + + + + + + | Special | LT KIDNEY DRAINAGE | | [facility] | | | Requests | | | LABORATORY | | + + + + + + | Special | Testing performed at | | [facility] | | | Requests | [facility] | LABORATORY | | | | [address];[place] [address] | | | | + + + + + + | Gram Stain | 2+ | | [facility] | | | Result | WBC'S SEEN | | LABORATORY | | | | | | | | + + + + + + | Gram Stain | NO ORGANISMS SEEN | | [facility] | | | Result | | | LABORATORY | | + + + + + + | Gram Stain | Testing performed at | | [facility] | | | Result | [facility], [address] | | LABORATORY | | | | [place], [place] | | | | | | [address] | | | | + + + + + + | RESULT | 2+METHICILLIN RESISTANT | | [facility] | | | | S. AUREUS (MRSA) (A) | | LABORATORY | | | | (A) | | | | + + + + + + + + | Specimen | + + | | + + + + +--------+ + | Organism | Antibiotic | Method | Susceptibility | + + +--------+ + | Staphylococcus | Clindamycin | PATRICK | SUSCEPTIBLE: | | aureus,Methicillin | | | Sensitive | | resistant (MRSA) | | | | + + +--------+ + | Staphylococcus | Erythromycin | PATRICK | RESISTANT: | | aureus,Methicillin | | | Resistant | | resistant (MRSA) | | | | + + +--------+ + | Staphylococcus | Gentamicin | PATRICK | SUSCEPTIBLE: | | aureus,Methicillin | | | Sensitive | | resistant (MRSA) | | | | + + +--------+ + | Staphylococcus | Levofloxacin | PATRICK | RESISTANT: | | aureus,Methicillin | | | Resistant | | resistant (MRSA) | | | | + + +--------+ + | Staphylococcus | Moxifloxacin | PATRICK | INTERMEDIATE: | | aureus,Methicillin | | | Intermediate | | resistant (MRSA) | | | | + + +--------+ + | Staphylococcus | Oxacillin | PATRICK | RESISTANT: | | aureus,Methicillin | | | Resistant | | resistant (MRSA) | | | | + + +--------+ + | Staphylococcus | Tetracycline | PATRICK | SUSCEPTIBLE: | | aureus,Methicillin | | | Sensitive | | resistant (MRSA) | | | | + + +--------+ + | Staphylococcus | Trimethoprim + | PATRICK | SUSCEPTIBLE: | | aureus,Methicillin | Sulfamethoxazole | | Sensitive | | resistant (MRSA) | | | | + + +--------+ + | Staphylococcus | Vancomycin | PATRICK | SUSCEPTIBLE: | | aureus,Methicillin | | | Sensitive | | resistant (MRSA) | | | | + + +--------+ + +---+ + | | Comment: Testing | | | performed at [facility], | | | [address], | | | [place] [address] | +---+ + + + + + + | Performing | Address | City/State/Zipcode | Phone Number | | Organization | | | | + + + + + | [facility] | [address] | [place] [address] | [phone] | + + + + + Culture, Blood (04/16/2019 12:18 PM PDT) + + + + + + | Component | Value | Ref Range | Performed | Pathologist | | | | | At | Signature | + + + + + + | RESULT | NO GROWTH 6 DAYS | | [facility] | | | | | | LABORATORY | | + + + + + + | RESULT | Testing performed at | | [facility] | | | | [facility], [address] [facility] [address] | | LABORATORY | | | | [place] | | | | | | [id number]: Testing | | | | | | performed at [facility], [address] | | | | | | [facility] [address], | | | | | | [place] [address] | | | | + + + + + + + + | Specimen | + + | Blood - Peripheral | | blood specimen | | (specimen) | + + + + + + + | Performing | Address | City/State/Zipcode | Phone Number | | Organization | | | | + + + + + | [facility] | [address] | [place] [address] | [phone] | + + + + + Culture, Blood (04/16/2019 12:18 PM PDT) + + + + + + | Component | Value | Ref Range | Performed | Pathologist | | | | | At | Signature | + + + + + + | Special | RAC | | [facility] | | | Requests | | | LABORATORY | | + + + + + + | Special | Testing performed at | | [facility] | | | Requests | [facility];[address] | | LABORATORY | | | | [address];[place] [address] | | | | + + + + + + | RESULT | NO GROWTH 6 DAYS | | [facility] | | | | | | LAB[facility]ATORY | | + + + + + + | RESULT | Testing performed at | | [facility] | | | | [facility], [address] | | LABORATORY | | | | [place] | | | | | | [address]Djcegav: Testing | | | | | | performed at [facility], [address] | | | | | [address] [place] | | | | | | [address] | | | | + + + + + + + + | Specimen | + + | Blood - Peripheral | | blood specimen | | (specimen) | + + + + + + + | Performing | Address | City/State/Zipcode | Phone Number | | Organization | | | | + + + + + | [facility] | [address] | [place] [address] | [phone] | + + + + + Magnesium (04/16/2019 5:49 AM PDT) + + + + + + | Component | Value | Ref Range | Performed | Pathologist | | | | | At | Signature | + + + + + + | Magnesium | 2.1Comment: Testing | 1.7 - 2.4 mg/dL | [facility] | | | | performed at [facility], [address] | | LABORATORY | | | | [address], | | | | | | [place] [address] | | | | + + + + + + + + | Specimen | + + | Blood | + + + + + + + | Performing | Address | City/State/Zipcode | Phone Number | | Organization | | | | + + + + + | [facility] | [address] | [place] [address] | [phone] | + + + + + Basic Metabolic Panel (04/16/2019 5:49 AM PDT) + + + + + + | Component | Value | Ref Range | Performed | Pathologist | | | | | At | Signature | + + + + + + | Na | 139 | 135 - 145 | [facility] | | | | | mmol/L | LABORATORY | | + + + + + + | K | 4.0 | 3.5 - 4.9 | [facility] | | | | | mmol/L | LABORATORY | | + + + + + + | Cl | 104 | 99 - 109 mmol/L | [facility] | | | | | | LABORATORY | | + + + + + + | CO2 | 29 | 23 - 32 mmol/L | [facility] | | | | | | LABORATORY | | + + + + + + | Anion Gap | 10 | 5 - 20 mmol/L | [facility] | | | | | | LABORATORY | | + + + + + + | Glucose | 104 (H) | 65 - 99 mg/dL | [facility] | | | | | | LABORATORY | | + + + + + + | BUN | 9 | 8 - 25 mg/dL | [facility] | | | | | | LABORATORY | | + + + + + + | Creatinine | 0.7 | 0.70 - 1.30 | [facility] | | | | | mg/dL | LABORATORY | | + + + + + + | BUN/Creatin | 13 | | [facility] | | | ine Ratio | | | LABORATORY | | + + + + + + | Calcium | 9.3 | 8.5 - 10.5 | [facility] | | | | | mg/dL | LABORATORY | | + + + + + + | Estimated | >60Comment: GFR <60: | >60 | [facility] | | | GFR | CHRONIC KIDNEY DISEASE, | mL/min/1.73m2 | LABORATORY | | | | IF FOUND OVER A 3 MONTH | | | | | | PERIOD.GFR <15: KIDNEY | | | | | | FAILURE.FOR | | | | | | AMERICANS, MULTIPLY THE | | | | | | CALCULATED GFR BY | | | | | | 1.210.This eGFR is | | | | | | calculated using the | | | | | | MDRD IDMS traceable | | | | | | equation.Testing | | | | | | performed at [facility], [address] | | | | | | [facility], | | | | | | [place] [address] | | | | + + + + + + + + | Specimen | + + | Blood | + + + + + + + | Performing | Address | City/State/Zipcode | Phone Number | | Organization | | | | + + + + + | [facility] | [address] | [place] [address] | [phone] | + + + + + CBC with Differential (04/16/2019 5:49 AM PDT) + + + + + + | Component | Value | Ref Range | Performed | Pathologist | | | | | At | Signature | + + + + + + | WBC | 13.62 (H) | 3.80 - 11.00 | [facility] | | | | | K/uL | LABORATORY | | + + + + + + | RBC | 4.00 (L) | 4.20 - 5.70 | [facility] | | | | | M/uL | LABORATORY | | + + + + + + | Hemoglobin | 11.7 (L) | 13.2 - 17.0 | [facility] | | | | | g/dL | LABORATORY | | + + + + + + | Hematocrit | 34.2 (L) | 39.0 - 50.0 % | [facility] | | | | | | LABORATORY | | + + + + + + | MCV | 85.4 | 80.0 - 100.0 fl | [facility] | | | | | | LABORATORY | | + + + + + + | MCH | 29.2 | 27.0 - 34.0 pg | [facility] | | | | | | LABORATORY | | + + + + + + | MCHC | 34.2 | 32.0 - 35.5 | [facility] | | | | | g/dL | LABORATORY | | + + + + + + | RDW-SD | 38.9 | 37 - 53 fl | [facility] | | | | | | LABORATORY | | + + + + + + | Platelet | 240 | 150 - 400 K/uL | [facility] | | | Count | | | LABORATORY | | + + + + + + | MPV | 9.7 | fl | [facility] | | | | | | LABORATORY | | + + + + + + | Diff Type | AUTOMATED | | [facility] | | | | | | LABORATORY | | + + + + + + | % | 70.23 | % | [facility] | | | Neutrophils | | | LABORATORY | | + + + + + + | % | 16.70 | % | [facility] | | | Lymphocytes | | | LABORATORY | | + + + + + + | Monocyte % | 11.85 | % | [facility] | | | | | | LABORATORY | | + + + + + + | Eosinophils | 0.64 | % | [facility] | | | % | | | LABORATORY | | + + + + + + | Basophils % | 0.58 | % | [facility] | | | | | | LABORATORY | | + + + + + + | Neutrophils | 9.57 (H) | 1.90 - 7.40 | [facility] | | | , Absolute | | K/uL | LABORATORY | | + + + + + + | Absolute | 2.28 | 1.00 - 3.90 | [facility] | | | Lymphocytes | | K/uL | LABORATORY | | + + + + + + | Absolute | 1.61 (H) | 0.00 - 0.80 | [facility] | | | Monocytes | | K/uL | LABORATORY | | + + + + + + | Eosinophils | 0.09 | 0.00 - 0.50 | [facility] | | | , Absolute | | K/uL | LABORATORY | | + + + + + + | Basophils, | 0.08Comment: Testing | 0.00 - 0.10 | [facility] | | | Absolute | performed at [facility], [address] | K/[address] | LABORATORY | | | | [address], | | | | | | [place] [address] | | | | + + + + + + + + | Specimen | + + | Blood | + + + + + + + | Performing | Address | City/State/Zipcode | Phone Number | | Organization | | | | + + + + + | [facility] | [address] | [place] [address] | [phone] | + + + + + CT Abdomen w Contrast (04/15/2019 12:40 PM PDT) + + | Specimen | + + | | + + + + + | Impressions | Performed At | + + + | *Complicated acute left pyelonephritis with intrarenal | [facility] | | abscess/phlegmon in lower pole of the left kidney measuring 6.3 x 4.7 | | | x 4.8 cm, causing renal capsular bulge. *Additional area of focal | | | pyelonephritis/small organized abscess or phlegmon in interpolar left | | | kidney measuring 3.2 x 3.1 x 2.9 cm. Adjacent pigtail catheter | | | in-situ in left posterior pararenal space. Interval decrease in size | | | of the left pararenal abscess, status post percutaneous drainage. | | | *Small amount of free fluid in left paracolic gutter. *Multiple | | | enlarged retroperitoneal lymph nodes, nonspecific, probably reactive. | | | *Hepatosplenomegaly. *Additional findings as detailed above. | | | Signed by: Liza Zeng, Pushpender Sign Date/Time: 04/15/2019 | | | 12:59 PM | | + + + + + + | Narrative | Performed At | + + + | CT ABDOMEN WITH CONTRAST CLINICAL INFORMATION: Follow-up | [facility] | | renal abscess drainage. COMPARISON: CT GUIDED DRAIN ABSCESS | | | (04/12/2019); PROCEDURE: Axial images through the abdomen after | | | the administration of 100 mL Omnipaque 350 intravenous contrast. | | | Multiplanar reconstructions. At least one of the following CT dose | | | optimization techniques were used: Automated exposure control; | | | Adjustment of mA and/or kV according to patient size; Use of | | | iterative reconstruction technique. FINDINGS: LUNG BASES: No | | | significant pulmonary abnormality. No pleural effusion or | | | pneumothorax. ABDOMEN Liver and Biliary: Increased craniocaudal | | | length of liver measuring 24.2 cm. Mild periportal edema. The | | | gallbladder is partially distended. No biliary dilation. Pancreas, | | | Spleen and Adrenals: Enlarged spleen measuring approximately 16.5 cm | | | in craniocaudal length. Normal pancreas and both adrenals. | | | Kidneys: The right kidney is normal in size and enhancement pattern. | | | Enlarged edematous left kidney with pararenal edema. There is | | | decreased enhancement in lower pole of the left kidney with a | | | heterogeneous attenuation area measuring 6.3 x 4.7 x 4.8 cm, image | | | 88/series 3, image 49/series 6. Additional smaller intrarenal area | | | of heterogeneous attenuation in interpolar left kidney measuring 3.2 | | | x 3.1 x 2.9 cm. There is marked infiltration of pararenal fat with | | | thickening of anterior and posterior pararenal fascia. Percutaneous | | | pigtail catheter in-situ in left posterior pararenal space. Bowel: | | | No small bowel or colonic dilation or adjacent inflammation. Vessels: | | | No significant abnormality in the aorta or its proximal branches. No | | | significant abnormality in the portal veins, mesenteric veins or | | | systemic veins. Lymph Nodes: Multiple enlarged retroperitoneal lymph | | | nodes. The index left para-aortic lymph node measuring 1.4 cm, | | | image 84/series 3, nonspecific, probably reactive. The index inter | | | aortocaval lymph node measuring 1.6 cm, image 95/series 3. | | | Peritoneum and Retroperitoneum: Small amount of fluid in left | | | paracolic gutter. Retroperitoneal left pararenal fat infiltration | | | with thickening of anterior and posterior pararenal fascia. No | | | pneumoperitoneum. BODY WALL Soft Tissues: No bowel or inflamed | | | fat containing hernia, mass or hemorrhage. Mildly elevated right | | | dome of the diaphragm. Mild subcutaneous edema of the body wall. | | | Small fat containing paraumbilical hernia. Bones: No acute | | | fracture or vertebral end plate destruction. No lytic or blastic | | | lesion. Moderate degenerative disc disease at L4-L5 and L5-S1. | | | Multiple Schmorl nodes at L4-L5. | | + + + + + | Procedure Note | + + | Reynaldo, Rad Results In - 04/15/2019 1:03 PM PDT | | CT ABDOMEN WITH CONTRAST | | | | CLINICAL INFORMATION: | | Follow-up renal abscess drainage. | | | | COMPARISON: | | CT GUIDED DRAIN ABSCESS (04/12/2019); | | | | PROCEDURE: | | Axial images through the abdomen after the administration of 100 mL | | Omnipaque 350 intravenous contrast. Multiplanar reconstructions. | | | | At least one of the following CT dose optimization techniques were | | used: Automated exposure control; Adjustment of mA and/or kV according | | to patient size; Use of iterative reconstruction technique. | | | | FINDINGS: | | LUNG BASES: No significant pulmonary abnormality. No pleural effusion | | or pneumothorax. | | | | ABDOMEN | | Liver and Biliary: Increased craniocaudal length of liver measuring | | 24.2 cm. Mild periportal edema. The gallbladder is partially | | distended. No biliary dilation. | | Pancreas, Spleen and Adrenals: Enlarged spleen measuring approximately | | 16.5 cm in craniocaudal length. Normal pancreas and both adrenals. | | Kidneys: The right kidney is normal in size and enhancement pattern. | | | | Enlarged edematous left kidney with pararenal edema. There is | | decreased enhancement in lower pole of the left kidney with a | | heterogeneous attenuation area measuring 6.3 x 4.7 x 4.8 cm, image | | 88/series 3, image 49/series 6. Additional smaller intrarenal area of | | heterogeneous attenuation in interpolar left kidney measuring 3.2 x 3.1 | | x 2.9 cm. There is marked infiltration of pararenal fat with | | thickening of anterior and posterior pararenal fascia. Percutaneous | | pigtail catheter in-situ in left posterior pararenal space. | | Bowel: No small bowel or colonic dilation or adjacent inflammation. | | Vessels: No significant abnormality in the aorta or its proximal | | branches. No significant abnormality in the portal veins, mesenteric | | veins or systemic veins. | | Lymph Nodes: Multiple enlarged retroperitoneal lymph nodes. The index | | left para-aortic lymph node measuring 1.4 cm, image 84/series 3, | | nonspecific, probably reactive. The index inter aortocaval lymph node | | measuring 1.6 cm, image 95/series 3. | | Peritoneum and Retroperitoneum: Small amount of fluid in left paracolic | | gutter. Retroperitoneal left pararenal fat infiltration with | | thickening of anterior and posterior pararenal fascia. No | | pneumoperitoneum. | | | | BODY WALL | | Soft Tissues: No bowel or inflamed fat containing hernia, mass or | | hemorrhage. Mildly elevated right dome of the diaphragm. Mild | | subcutaneous edema of the body wall. Small fat containing | | paraumbilical hernia. | | Bones: No acute fracture or vertebral end plate destruction. No lytic | | or blastic lesion. Moderate degenerative disc disease at L4-L5 and | | L5-S1. Multiple Schmorl nodes at L4-L5. | | | | IMPRESSION: | | *Complicated acute left pyelonephritis with intrarenal abscess/phlegmon | | in lower pole of the left kidney measuring 6.3 x 4.7 x 4.8 cm, causing | | renal capsular bulge. | | *Additional area of focal pyelonephritis/small organized abscess or | | phlegmon in interpolar left kidney measuring 3.2 x 3.1 x 2.9 cm. | | Adjacent pigtail catheter in-situ in left posterior pararenal space. | | Interval decrease in size of the left pararenal abscess, status post | | percutaneous drainage. | | *Small amount of free fluid in left paracolic gutter. | | *Multiple enlarged retroperitoneal lymph nodes, nonspecific, probably | | reactive. | | *Hepatosplenomegaly. | | *Additional findings as detailed above. | | | | | | | | Signed by: Zeng, MArnold Duque | | Sign Date/Time: 04/15/2019 12:59 PM | + + + +---------+ + + | Performing | Address | City/State/Zipcode | Phone Number | | Organization | | | | + +---------+ + + | [facility] | | | | + +---------+ + + CK Total (04/15/2019 5:35 AM PDT) + + + + + + | Component | Value | Ref Range | Performed | Pathologist | | | | | At | Signature | + + + + + + | CK TOTAL | <15 (L)Comment: Testing | 55 - 400 U/L | [facility] | | | | performed at [facility] | LABORATORY | | | | [address];[place], [place] | | | | | | [address] | | | | + + + + + + + + | Specimen | + + | Blood | + + + + + + + | Performing | Address | City/State/Zipcode | Phone Number | | Organization | | | | + + + + + | [facility] | [address] | [place] [address] | [phone] | + + + + + Basic Metabolic Panel (04/15/2019 5:35 AM PDT) + + + + + + | Component | Value | Ref Range | Performed | Pathologist | | | | | At | Signature | + + + + + + | Na | 138 | 135 - 145 | [facility] | | | | | mmol/L | LABORATORY | | + + + + + + | K | 3.5 | 3.5 - 4.9 | [facility] | | | | | mmol/L | LABORATORY | | + + + + + + | Cl | 105 | 99 - 109 mmol/L | [facility] | | | | | | LABORATORY | | + + + + + + | CO2 | 28 | 23 - 32 mmol/L | [facility] | | | | | | LABORATORY | | + + + + + + | Anion Gap | 9 | 5 - 20 mmol/L | [facility] | | | | | | LABORATORY | | + + + + + + | Glucose | 92 | 65 - 99 mg/dL | [facility] | | | | | | LABORATORY | | + + + + + + | BUN | 10 | 8 - 25 mg/dL | [facility] | | | | | | LABORATORY | | + + + + + + | Creatinine | 0.7 | 0.70 - 1.30 | [facility] | | | | | mg/dL | LABORATORY | | + + + + + + | BUN/Creatin | 14 | | [facility] | | | ine Ratio | | | LABORATORY | | + + + + + + | Calcium | 8.6 | 8.5 - 10.5 | [facility] | | | | | mg/dL | LABORATORY | | + + + + + + | Estimated | >60Comment: GFR <60: | >60 | [facility] | | | GFR | CHRONIC KIDNEY DISEASE, | mL/min/1.73m2 | LABORATORY | | | | IF FOUND OVER A 3 MONTH | | | | | | PERIOD.GFR <15: KIDNEY | | | | | | FAILURE.FOR | | | | | | AMERICANS, MULTIPLY THE | | | | | | CALCULATED GFR BY | | | | | | 1.210.This eGFR is | | | | | | calculated using the | | | | | | MDRD IDMS traceable | | | | | | equation.Testing | | | | | | performed at [facility], [address] | | | | | | [facility], | | | | | | [place] [address] | | | | + + + + + + + + | Specimen | + + | Blood | + + + + + + + | Performing | Address | City/State/Zipcode | Phone Number | | Organization | | | | + + + + + | [facility] | [address] | [place] [address] | [phone] | + + + + + CBC with Differential (04/15/2019 5:35 AM PDT) + + + + + + | Component | Value | Ref Range | Performed | Pathologist | | | | | At | Signature | + + + + + + | WBC | 12.08 (H) | 3.80 - 11.00 | [facility] | | | | | K/uL | LABORATORY | | + + + + + + | RBC | 3.95 (L) | 4.20 - 5.70 | [facility] | | | | | M/uL | LABORATORY | | + + + + + + | Hemoglobin | 11.4 (L) | 13.2 - 17.0 | [facility] | | | | | g/dL | LABORATORY | | + + + + + + | Hematocrit | 33.5 (L) | 39.0 - 50.0 % | [facility] | | | | | | LABORATORY | | + + + + + + | MCV | 84.7 | 80.0 - 100.0 fl | [facility] | | | | | | LABORATORY | | + + + + + + | MCH | 28.9 | 27.0 - 34.0 pg | [facility] | | | | | | LABORATORY | | + + + + + + | MCHC | 34.2 | 32.0 - 35.5 | [facility] | | | | | g/dL | LABORATORY | | + + + + + + | RDW-SD | 39.8 | 37 - 53 fl | [facility] | | | | | | LABORATORY | | + + + + + + | Platelet | 207 | 150 - 400 K/uL | [facility] | | | Count | | | LABORATORY | | + + + + + + | MPV | 10.1 | fl | [facility] | | | | | | LABORATORY | | + + + + + + | Diff Type | AUTOMATED | | [facility] | | | | | | LABORATORY | | + + + + + + | % | 67.76 | % | [facility] | | | Neutrophils | | | LABORATORY | | + + + + + + | % | 20.03 | % | [facility] | | | Lymphocytes | | | LABORATORY | | + + + + + + | Monocyte % | 10.91 | % | [facility] | | | | | | LABORATORY | | + + + + + + | Eosinophils | 0.95 | % | [facility] | | | % | | | LABORATORY | | + + + + + + | Basophils % | 0.35 | % | [facility] | | | | | | LABORATORY | | + + + + + + | Neutrophils | 8.19 (H) | 1.90 - 7.40 | [facility] | | | , Absolute | | K/uL | LABORATORY | | + + + + + + | Absolute | 2.42 | 1.00 - 3.90 | [facility] | | | Lymphocytes | | K/uL | LABORATORY | | + + + + + + | Absolute | 1.32 (H) | 0.00 - 0.80 | [facility] | | | Monocytes | | K/uL | LABORATORY | | + + + + + + | Eosinophils | 0.12 | 0.00 - 0.50 | [facility] | | | , Absolute | | K/uL | LABORATORY | | + + + + + + | Basophils, | 0.04Comment: Testing | 0.00 - 0.10 | [facility] | | | Absolute | performed at [facility], [address] | [address] | LABORATORY | | | | [address], | | | | | | [place] [address] | | | | + + + + + + + + | Specimen | + + | Blood | + + + + + + + | Performing | Address | City/State/Zipcode | Phone Number | | Organization | | | | + + + + + | [facility] | [address] | [place] [address] | [phone] | + + + + + Vancomycin, Trough (04/14/2019 6:50 PM PDT) + + + + + + | Component | Value | Ref Range | Performed | Pathologist | | | | | At | Signature | + + + + + + | Vancomycin, | 9.5 (L)Comment: 15 to 20 | 10 - 20 ug/mL | [facility] | | | Trough | ug/mL for meningitis, | | LABORATORY | | | | osteomyelitis, | | | | | | endocarditis, sepsis, | | | | | | orhealthcare associated | | | | | | pneumonia, or an PATRICK | | | | | | equal to or greater than | | | | | | 1.0 ug/mLTesting | | | | | | performed at [facility] | | | | | | [address];[place], [place] | | | | | | [address] | | | | + + + + + + + + | Specimen | + + | Blood | + + + + + + + | Performing | Address | City/State/Zipcode | Phone Number | | Organization | | | | + + + + + | [facility] | [address] | [place] [address] | [phone] | + + + + + Basic Metabolic Panel (04/14/2019 5:37 AM PDT) + + + + + + | Component | Value | Ref Range | Performed | Pathologist | | | | | At | Signature | + + + + + + | Na | 139 | 135 - 145 | [facility] | | | | | mmol/L | LABORATORY | | + + + + + + | K | 3.7 | 3.5 - 4.9 | [facility] | | | | | mmol/L | LABORATORY | | + + + + + + | Cl | 105 | 99 - 109 mmol/L | [facility] | | | | | | LABORATORY | | + + + + + + | CO2 | 28 | 23 - 32 mmol/L | [facility] | | | | | | LABORATORY | | + + + + + + | Anion Gap | 10 | 5 - 20 mmol/L | [facility] | | | | | | LABORATORY | | + + + + + + | Glucose | 95 | 65 - 99 mg/dL | [facility] | | | | | | LABORATORY | | + + + + + + | BUN | 7 (L) | 8 - 25 mg/dL | [facility] | | | | | | LABORATORY | | + + + + + + | Creatinine | 0.7 | 0.70 - 1.30 | [facility] | | | | | mg/dL | LABORATORY | | + + + + + + | BUN/Creatin | 10 | | [facility] | | | ine Ratio | | | LABORATORY | | + + + + + + | Calcium | 9.1 | 8.5 - 10.5 | [facility] | | | | | mg/dL | LABORATORY | | + + + + + + | Estimated | >60Comment: GFR <60: | >60 | [facility] | | | GFR | CHRONIC KIDNEY DISEASE, | mL/min/1.73m2 | LABORATORY | | | | IF FOUND OVER A 3 MONTH | | | | | | PERIOD.GFR <15: KIDNEY | | | | | | FAILURE.FOR | | | | | | AMERICANS, MULTIPLY THE | | | | | | CALCULATED GFR BY | | | | | | 1.210.This eGFR is | | | | | | calculated using the | | | | | | [facility] traceable | | | | | | equation.Testing | | | | | | performed at [facility], [address] | | | | | | [facility], | | | | | | [place] [address] | | | | + + + + + + + + | Specimen | + + | Blood | + + + + + + + | Performing | Address | City/State/Zipcode | Phone Number | | Organization | | | | + + + + + | [facility] | [address] | [place] [address] | [phone] | + + + + + CBC with Differential (04/14/2019 5:37 AM PDT) + + + + + + | Component | Value | Ref Range | Performed | Pathologist | | | | | At | Signature | + + + + + + | WBC | 14.25 (H) | 3.80 - 11.00 | [facility] | | | | | K/uL | LABORATORY | | + + + + + + | RBC | 4.22 | 4.20 - 5.70 | [facility] | | | | | M/uL | LABORATORY | | + + + + + + | Hemoglobin | 12.2 (L) | 13.2 - 17.0 | [facility] | | | | | g/dL | LABORATORY | | + + + + + + | Hematocrit | 35.9 (L) | 39.0 - 50.0 % | [facility] | | | | | | LABORATORY | | + + + + + + | MCV | 85.2 | 80.0 - 100.0 fl | [facility] | | | | | | LABORATORY | | + + + + + + | MCH | 29.0 | 27.0 - 34.0 pg | [facility] | | | | | | LABORATORY | | + + + + + + | MCHC | 34.1 | 32.0 - 35.5 | [facility] | | | | | g/dL | LABORATORY | | + + + + + + | RDW-SD | 39.4 | 37 - 53 fl | [facility] | | | | | | LABORATORY | | + + + + + + | Platelet | 210 | 150 - 400 K/uL | [facility] | | | Count | | | LABORATORY | | + + + + + + | MPV | 10.3 | fl | [facility] | | | | | | LABORATORY | | + + + + + + | Diff Type | AUTOMATED | | [facility] | | | | | | LABORATORY | | + + + + + + | % | 71.53 | % | [facility] | | | Neutrophils | | | LABORATORY | | + + + + + + | % | 16.93 | % | [facility] | | | Lymphocytes | | | LABORATORY | | + + + + + + | Monocyte % | 10.97 | % | [facility] | | | | | | LABORATORY | | + + + + + + | Eosinophils | 0.31 | % | [facility] | | | % | | | LABORATORY | | + + + + + + | Basophils % | 0.26 | % | [facility] | | | | | | LABORATORY | | + + + + + + | Neutrophils | 10.20 (H) | 1.90 - 7.40 | [facility] | | | , Absolute | | K/uL | LABORATORY | | + + + + + + | Absolute | 2.41 | 1.00 - 3.90 | [facility] | | | Lymphocytes | | K/uL | LABORATORY | | + + + + + + | Absolute | 1.56 (H) | 0.00 - 0.80 | [facility] | | | Monocytes | | K/uL | LABORATORY | | + + + + + + | Eosinophils | 0.04 | 0.00 - 0.50 | [facility] | | | , Absolute | | K/uL | LABORATORY | | + + + + + + | Basophils, | 0.04Comment: Testing | 0.00 - 0.10 | [facility] | | | Absolute | performed at [facility], [address] | K/uL | LABORATORY | | | | [address], | | | | | | [place] [address] | | | | + + + + + + + + | Specimen | + + | Blood | + + + + + + + | Performing | Address | City/State/Zipcode | Phone Number | | Organization | | | | + + + + + | [facility] | [address] | [place] [address] | [phone] | + + + + + Hepatitis C Genotype (04/13/2019 11:34 AM PDT) + + + + + + | Component | Value | Ref Range | Performed | Pathologist | | | | | At | Signature | + + + + + + | HCV | 1a | | [facility] | | | Genotype | | | LABORATORY | | + + + + + + | Please note | (See Below)Comment: This | | [facility] | | | | test was developed and | | LABORATORY | | | | its performance | | | | | | characteristicsdetermine | | | | | | d by [facility]. It has | | | | | | not been cleared or | | | | | | approved by theU.S. Food | | | | | | and Drug | | | | | | Administration.The FDA | | | | | | has determined that such | | | | | | clearance or approval | | | | | | is notnecessary. This | | | | | | test is used for | | | | | | clinical purposes. It | | | | | | should notbe regarded as | | | | | | investigational or for | | | | | | research.Testing | | | | | | performed by [facility], | | | | | | [address], | | | | | | [facility] [address] | | | | + + + + + + + + | Specimen | + + | | + + + + + + + | Performing | Address | City/State/Zipcode | Phone Number | | Organization | | | | + + + + + | [facility] | [address] | [place] [address] | [phone] | + + + + + HCV RNA Quant, PCR, Rflx Genotyping (04/13/2019 11:34 AM PDT) + + + + + + | Component | Value | Ref Range | Performed | Pathologist | | | | | At | Signature | + + + + + + | HCV | 2,980,000 | IU/mL | [facility] | | | Quantitativ | | | LABORATORY | | | e | | | | | + + + + + + | HCV-LOG 10 | 6.474 | log10 IU/mL | [facility] | | | | | | LABORATORY | | + + + + + + | TEST | (See Below)Comment: The | | [facility] | | | INFORMATION | quantitative range of | | LABORATORY | | | | this assay is 15 IU/mL | | | | | | to 100 millionIU/mL. | | | | | | | | | | + + + + + + | HCV | (See Below)Comment: To | | [facility] | | | Genotype | be performed on this | | LABORATORY | | | | specimen.Testing | | | | | | performed by [facility], | | | | | | [address], | | | | | | [facility] [address] | | | | + + + + + + + + | Specimen | + + | Blood | + + + + + + + | Performing | Address | City/State/Zipcode | Phone Number | | Organization | | | | + + + + + | [facility] | [address] | [place] [address] | [phone] | + + + + + Magnesium (04/13/2019 6:07 AM PDT) + + + + + + | Component | Value | Ref Range | Performed | Pathologist | | | | | At | Signature | + + + + + + | Magnesium | 1.8Comment: Testing | 1.7 - 2.4 mg/dL | [facility] | | | | performed at [facility];[address] | | LABORATORY | | | | [facility];[place], [place] | | | | | | [address] | | | | + + + + + + + + | Specimen | + + | Blood | + + + + + + + | Performing | Address | City/State/Zipcode | Phone Number | | Organization | | | | + + + + + | [facility] | [address] | [place] [address] | [phone] | + + + + + Basic Metabolic Panel (04/13/2019 6:07 AM PDT) + + + + + + | Component | Value | Ref Range | Performed | Pathologist | | | | | At | Signature | + + + + + + | Na | 138 | 135 - 145 | [facility] | | | | | mmol/L | LABORATORY | | + + + + + + | K | 3.9 | 3.5 - 4.9 | [facility] | | | | | mmol/L | LABORATORY | | + + + + + + | Cl | 104 | 99 - 109 mmol/L | [facility] | | | | | | LABORATORY | | + + + + + + | CO2 | 25 | 23 - 32 mmol/L | [facility] | | | | | | LABORATORY | | + + + + + + | Anion Gap | 13 | 5 - 20 mmol/L | [facility] | | | | | | LABORATORY | | + + + + + + | Glucose | 99 | 65 - 99 mg/dL | [facility] | | | | | | LABORATORY | | + + + + + + | BUN | 10 | 8 - 25 mg/dL | [facility] | | | | | | LABORATORY | | + + + + + + | Creatinine | 0.59 (L) | 0.70 - 1.30 | [facility] | | | | | mg/dL | LABORATORY | | + + + + + + | BUN/Creatin | 17 | | [facility] | | | ine Ratio | | | LABORATORY | | + + + + + + | Calcium | 9.0 | 8.5 - 10.5 | [facility] | | | | | mg/dL | LABORATORY | | + + + + + + | Estimated | >60Comment: GFR <60: | >60 | [facility] | | | GFR | CHRONIC KIDNEY DISEASE, | mL/min/1.73m2 | LABORATORY | | | | IF FOUND OVER A 3 MONTH | | | | | | PERIOD.GFR <15: KIDNEY | | | | | | FAILURE.FOR | | | | | | AMERICANS, MULTIPLY THE | | | | | | CALCULATED GFR BY | | | | | | 1.210.This eGFR is | | | | | | calculated using the | | | | | | [facility] traceable | | | | | | equation.Testing | | | | | | performed at [facility] | | | | | | [facility];[place], [place] | | | | | | [address] | | | | + + + + + + + + | Specimen | + + | Blood | + + + + + + + | Performing | Address | City/State/Zipcode | Phone Number | | Organization | | | | + + + + + | [facility] | [address] | [place] [address] | [phone] | + + + + + CBC with Differential (04/13/2019 6:07 AM PDT) + + + + + + | Component | Value | Ref Range | Performed | Pathologist | | | | | At | Signature | + + + + + + | WBC | 14.87 (H) | 3.80 - 11.00 | [facility] | | | | | K/uL | LABORATORY | | + + + + + + | RBC | 4.36 | 4.20 - 5.70 | [facility] | | | | | M/uL | LABORATORY | | + + + + + + | Hemoglobin | 12.5 (L) | 13.2 - 17.0 | [facility] | | | | | g/dL | LABORATORY | | + + + + + + | Hematocrit | 36.5 (L) | 39.0 - 50.0 % | [facility] | | | | | | LABORATORY | | + + + + + + | MCV | 83.8 | 80.0 - 100.0 fl | [facility] | | | | | | LABORATORY | | + + + + + + | MCH | 28.8 | 27.0 - 34.0 pg | [facility] | | | | | | LABORATORY | | + + + + + + | MCHC | 34.4 | 32.0 - 35.5 | [facility] | | | | | g/dL | LABORATORY | | + + + + + + | RDW-SD | 39.8 | 37 - 53 fl | [facility] | | | | | | LABORATORY | | + + + + + + | Platelet | 216 | 150 - 400 K/uL | [facility] | | | Count | | | LABORATORY | | + + + + + + | MPV | 9.5 | fl | [facility] | | | | | | LABORATORY | | + + + + + + | Diff Type | AUTOMATED | | [facility] | | | | | | LABORATORY | | + + + + + + | % | 75.45 | % | [facility] | | | Neutrophils | | | LABORATORY | | + + + + + + | % | 12.48 | % | [facility] | | | Lymphocytes | | | LABORATORY | | + + + + + + | Monocyte % | 11.04 | % | [facility] | | | | | | LABORATORY | | + + + + + + | Eosinophils | 0.30 | % | [facility] | | | % | | | LABORATORY | | + + + + + + | Basophils % | 0.73 | % | [facility] | | | | | | LABORATORY | | + + + + + + | Neutrophils | 11.22 (H) | 1.90 - 7.40 | [facility] | | | , Absolute | | K/uL | LABORATORY | | + + + + + + | Absolute | 1.86 | 1.00 - 3.90 | [facility] | | | Lymphocytes | | K/uL | LABORATORY | | + + + + + + | Absolute | 1.64 (H) | 0.00 - 0.80 | [facility] | | | Monocytes | | K/uL | LABORATORY | | + + + + + + | Eosinophils | 0.05 | 0.00 - 0.50 | [facility] | | | , Absolute | | K/uL | LABORATORY | | + + + + + + | Basophils, | 0.11 (H)Comment: Testing | 0.00 - 0.10 | [facility] | | | Absolute | performed at [facility];[address] | [address] | LABORATORY | | | | [address];[place] | | | | | | [address] | | | | + + + + + + + + | Specimen | + + | Blood | + + + + + + + | Performing | Address | City/State/Zipcode | Phone Number | | Organization | | | | + + + + + | [facility] | [address] | [place] [address] | [phone] | + + + + + CT Guided Drain Abscess (04/12/2019 11:36 AM PDT) + + | Specimen | + + | | + + + + + | Impressions | Performed At | + + + | Successful CT-guided left perinephric abscess drainage. | [facility] | | Signed by: Liza Morataya, Sign Date/Time: 04/13/2019 6:34 PM | | + + + + + + | Narrative | Performed At | + + + | CT GUIDED LEFT PERINEPHRIC ABSCESS DRAINAGE CLINICAL | [facility] | | INFORMATION: 34-year-old male with left perinephric abscess. | | | COMPARISON: None. PROCEDURE: The risks, benefits and | | | alternatives were discussed with the patient; consent was obtained | | | and placed in the patient's chart. The risks included but were not | | | limited to bleeding, infection, non target organ injury. The | | | patient was placed in the CT scanner and imaging was obtained through | | | the abdomen and pelvis. A reproducible target was demonstrated. | | | The skin overlying the site of interest was localized and marked. The | | | skin was sterilely prepped and draped in the usual fashion. Local | | | lidocaine was administered in the skin and underlying tissues, and a | | | tiny dermatotomy was made. Under CT guidance, a 18 gauge needle | | | system was used to access the target. A wire was positioned through | | | the needle system into the fluid collection. Serial dilatation was | | | performed to the appropriate level and a 10 Spanish multipurpose | | | drainage catheter was placed and secured to the skin under CT | | | guidance. The patient tolerated the procedure well without | | | complication. Conscious sedation was administered. The nurse | | | administered fentanyl and Versed medications during the examination | | | and monitored blood pressure, heart rate, and pulse oximeter. | | | Physician intraservice time of 30 minutes. At least one of the | | | following CT dose optimization techniques were used: Automated | | | exposure control; Adjustment of mA and/or kV according to patient | | | size; Use of iterative reconstruction technique. FINDINGS: CT | | | identified the left perinephric abscess, which was selected for | | | drainage. Intra procedural imaging confirmed appropriate catheter | | | placement. Post procedure imaging showed no evidence for complication. | | | | | + + + + + | Procedure Note | + + | Reynaldo, Rad Results In - 04/13/2019 6:38 PM PDT | | CT GUIDED LEFT PERINEPHRIC ABSCESS DRAINAGE | | | | CLINICAL INFORMATION: | | 34-year-old male with left perinephric abscess. | | | | COMPARISON: | | None. | | | | PROCEDURE: | | The risks, benefits and alternatives were discussed with the patient; | | consent was obtained and placed in the patient's chart. The risks | | included but were not limited to bleeding, infection, non target organ | | injury. | | | | The patient was placed in the CT scanner and imaging was obtained | | through the abdomen and pelvis. A reproducible target was | | demonstrated. The skin overlying the site of interest was localized and | | marked. The skin was sterilely prepped and draped in the usual fashion. | | Local lidocaine was administered in the skin and underlying tissues, | | and a tiny dermatotomy was made. Under CT guidance, a 18 gauge needle | | system was used to access the target. A wire was positioned through the | | needle system into the fluid collection. Serial dilatation was | | performed to the appropriate level and a 10 Spanish multipurpose | | drainage catheter was placed and secured to the skin under CT guidance. | | The patient tolerated the procedure well without complication. | | | | Conscious sedation was administered. The nurse administered fentanyl | | and Versed medications during the examination and monitored blood | | pressure, heart rate, and pulse oximeter. Physician intraservice time | | of 30 minutes. | | | | At least one of the following CT dose optimization techniques were | | used: Automated exposure control; Adjustment of mA and/or kV according | | to patient size; Use of iterative reconstruction technique. | | | | FINDINGS: | | CT identified the left perinephric abscess, which was selected for | | drainage. Intra procedural imaging confirmed appropriate catheter | | placement. Post procedure imaging showed no evidence for complication. | | | | IMPRESSION: | | Successful CT-guided left perinephric abscess drainage. | | | | | | | | Signed by: Liza Morataya David | | Sign Date/Time: 04/13/2019 6:34 PM | + + + +---------+ + + | Performing | Address | City/State/Zipcode | Phone Number | | Organization | | | | + +---------+ + + | [facility] | | | | + +---------+ + + Culture, Wound, Smear, w/Anaerobe (04/12/2019 9:55 AM PDT) + + + + + + | Component | Value | Ref Range | Performed | Pathologist | | | | | At | Signature | + + + + + + | Special | LEFT FLANK DRAIN | | [facility] | | | Requests | | | LABORATORY | | + + + + + + | Special | Testing performed at | | [facility] | | | Requests | [facility];[address] | LABORATORY | | | | [address];[place] [address] | | | | + + + + + + | Gram Stain | 2+ | | [facility] | | | Result | WBC'S SEEN | | LABORATORY | | | | | | | | + + + + + + | Gram Stain | 4+ | | [facility] | | | Result | GRAM POSITIVE COCCI | | LABORATORY | | | | | | | | + + + + + + | Gram Stain | Testing performed at | | [facility] | | | Result | [facility], [address] [place] [address] | | LABORATORY | | | | [place] | | | | | | [address] | | | | + + + + + + | RESULT | 3+METHICILLIN RESISTANT | | [facility] | | | | S. AUREUS (MRSA) (A) | | LABORATORY | | | | (A) | | | | + + + + + + + + | Specimen | + + | | + + + + +--------+ + | Organism | Antibiotic | Method | Susceptibility | + + +--------+ + | Staphylococcus | Clindamycin | PATRICK | SUSCEPTIBLE: | | aureus,Methicillin | | | Sensitive | | resistant (MRSA) | | | | + + +--------+ + | Staphylococcus | Erythromycin | PATRICK | RESISTANT: | | aureus,Methicillin | | | Resistant | | resistant (MRSA) | | | | + + +--------+ + | Staphylococcus | Gentamicin | PATRICK | SUSCEPTIBLE: | | aureus,Methicillin | | | Sensitive | | resistant (MRSA) | | | | + + +--------+ + | Staphylococcus | Levofloxacin | PATRICK | RESISTANT: | | aureus,Methicillin | | | Resistant | | resistant (MRSA) | | | | + + +--------+ + | Staphylococcus | Moxifloxacin | PATRICK | INTERMEDIATE: | | aureus,Methicillin | | | Intermediate | | resistant (MRSA) | | | | + + +--------+ + | Staphylococcus | Oxacillin | PATRICK | RESISTANT: | | aureus,Methicillin | | | Resistant | | resistant (MRSA) | | | | + + +--------+ + | Staphylococcus | Tetracycline | PATRICK | SUSCEPTIBLE: | | aureus,Methicillin | | | Sensitive | | resistant (MRSA) | | | | + + +--------+ + | Staphylococcus | Trimethoprim + | PATRICK | SUSCEPTIBLE: | | aureus,Methicillin | Sulfamethoxazole | | Sensitive | | resistant (MRSA) | | | | + + +--------+ + | Staphylococcus | Vancomycin | PATRICK | SUSCEPTIBLE: | | aureus,Methicillin | | | Sensitive | | resistant (MRSA) | | | | + + +--------+ + +---+ + | | Comment: Testing | | | performed at [facility], | | | [address], | | | [place] [address] | +---+ + + + + + + | Performing | Address | City/State/Zipcode | Phone Number | | Organization | | | | + + + + + | [facility] | [address] | [place] [address] | [phone] | + + + + + Protime INR (04/12/2019 5:13 AM PDT) + + + + + + | Component | Value | Ref Range | Performed | Pathologist | | | | | At | Signature | + + + + + + | INR | 1.0Comment: REFERENCE | | [facility] | | | | RANGE:0.9 - 1.2 | | LABORATORY | | | | NON-ANTICOAGULATED2.0 | | | | | | - 3.0 ALL OTHER | | | | | | THERAPEUTIC | | | | | | INDICATIONS2.5 - 3.5 | | | | | | MECHANICAL HEART VALVES, | | | | | | RECURRENT OR SYSTEMIC | | | | | | EMBOLISMTesting | | | | | | performed at [facility] | | | | | | [address];[place], [place] | | | | | | [address] | | | | + + + + + + + + | Specimen | + + | Blood | + + + + + + + | Performing | Address | City/State/Zipcode | Phone Number | | Organization | | | | + + + + + | [facility] | [address] | [place] [address] | [phone] | + + + + + PTT (04/12/2019 5:13 AM PDT) + + + + + + | Component | Value | Ref Range | Performed | Pathologist | | | | | At | Signature | + + + + + + | PTT | 33 (H)Comment: Testing | 23 - 32 seconds | [facility] | | | | performed at [facility];[address] | | LABORATORY | | | [address];[place] | | | | | | [address] | | | | + + + + + + + + | Specimen | + + | Blood | + + + + + + + | Performing | Address | City/State/Zipcode | Phone Number | | Organization | | | | + + + + + | [facility] | [address] | [place] [address] | [phone] | + + + + + Magnesium (04/12/2019 5:13 AM PDT) + + + + + + | Component | Value | Ref Range | Performed | Pathologist | | | | | At | Signature | + + + + + + | Magnesium | 1.9Comment: Testing | 1.7 - 2.4 mg/dL | [facility] | | | | performed at [facility], [address] | | LABORATORY | | | | [address], | | | | | | [place] [address] | | | | + + + + + + + + | Specimen | + + | Blood | + + + + + + + | Performing | Address | City/State/Zipcode | Phone Number | | Organization | | | | + + + + + | [facility] | [address] | [place] [address] | [phone] | + + + + + CBC no Differential (04/12/2019 5:13 AM PDT) + + + + + + | Component | Value | Ref Range | Performed | Pathologist | | | | | At | Signature | + + + + + + | WBC | 18.08 (H) | 3.80 - 11.00 | [facility] | | | | | K/uL | LABORATORY | | + + + + + + | RBC | 4.51 | 4.20 - 5.70 | [facility] | | | | | M/uL | LABORATORY | | + + + + + + | Hemoglobin | 13.2 | 13.2 - 17.0 | [facility] | | | | | g/dL | LABORATORY | | + + + + + + | Hematocrit | 38.6 (L) | 39.0 - 50.0 % | [facility] | | | | | | LABORATORY | | + + + + + + | MCV | 85.6 | 80.0 - 100.0 fl | [facility] | | | | | | LABORATORY | | + + + + + + | MCH | 29.3 | 27.0 - 34.0 pg | [facility] | | | | | | LABORATORY | | + + + + + + | MCHC | 34.2 | 32.0 - 35.5 | [facility] | | | | | g/dL | LABORATORY | | + + + + + + | RDW-SD | 39.4 | 37 - 53 fl | [facility] | | | | | | LABORATORY | | + + + + + + | Platelet | 207 | 150 - 400 K/uL | [facility] | | | Count | | | LABORATORY | | + + + + + + | MPV | 10.2Comment: Testing | fl | [facility] | | | | performed at [facility], [address] | | LABORATORY | | | | [address], | | | | | | [place] [address] | | | | + + + + + + + + | Specimen | + + | Blood | + + + + + + + | Performing | Address | City/State/Zipcode | Phone Number | | Organization | | | | + + + + + | [facility] | [address] | [place] [address] | [phone] | + + + + + Basic Metabolic Panel (04/12/2019 5:13 AM PDT) + + + + + + | Component | Value | Ref Range | Performed | Pathologist | | | | | At | Signature | + + + + + + | Na | 133 (L) | 135 - 145 | [facility] | | | | | mmol/L | LABORATORY | | + + + + + + | K | 4.2 | 3.5 - 4.9 | [facility] | | | | | mmol/L | LABORATORY | | + + + + + + | Cl | 101 | 99 - 109 mmol/L | [facility] | | | | | | LABORATORY | | + + + + + + | CO2 | 26 | 23 - 32 mmol/L | [facility] | | | | | | LABORATORY | | + + + + + + | Anion Gap | 10 | 5 - 20 mmol/L | [facility] | | | | | | LABORATORY | | + + + + + + | Glucose | 109 (H) | 65 - 99 mg/dL | [facility] | | | | | | LABORATORY | | + + + + + + | BUN | 9 | 8 - 25 mg/dL | [facility] | | | | | | LABORATORY | | + + + + + + | Creatinine | 0.7 | 0.70 - 1.30 | [facility] | | | | | mg/dL | LABORATORY | | + + + + + + | BUN/Creatin | 13 | | [facility] | | | ine Ratio | | | LABORATORY | | + + + + + + | Calcium | 9.1 | 8.5 - 10.5 | [facility] | | | | | mg/dL | LABORATORY | | + + + + + + | Estimated | >60Comment: GFR <60: | >60 | [facility] | | | GFR | CHRONIC KIDNEY DISEASE, | mL/min/1.73m2 | LABORATORY | | | | IF FOUND OVER A 3 MONTH | | | | | | PERIOD.GFR <15: KIDNEY | | | | | | FAILURE.FOR | | | | | | AMERICANS, MULTIPLY THE | | | | | | CALCULATED GFR BY | | | | | | 1.210.This eGFR is | | | | | | calculated using the | | | | | | MDRD IDMS traceable | | | | | | equation.Testing | | | | | | performed at [facility], [address] | | | | | [facility], | | | | | | [place] [address] | | | | + + + + + + + + | Specimen | + + | Blood | + + + + + + + | Performing | Address | City/State/Zipcode | Phone Number | | Organization | | | | + + + + + | [facility] | [address] | [place] [address] | [phone] | + + + + + Culture, Urine (04/12/2019 12:55 AM PDT) + + + + + + | Component | Value | Ref Range | Performed | Pathologist | | | | | At | Signature | + + + + + + | RESULT | NO GROWTH | | [facility] | | | | | | LABORATORY | | + + + + + + | RESULT | Testing performed at | | [facility] MEDICAL CENTER | | | | [facility], [address] | | LABORATORY | | | | [facility], [place], [place] | | | | | | [id number]: Testing | | | | | | performed at [facility], [address] | | | | | | [facility], | | | | | | [place] [address] | | | | + + + + + + + + | Specimen | + + | Urine - Urine | | specimen obtained by | | clean catch | | procedure (specimen) | + + + + + + + | Performing | Address | City/State/Zipcode | Phone Number | | Organization | | | | + + + + + | [facility] | [address] | [place] [address] | [phone] | + + + + + documented in this encounter Visit Diagnoses + + | Diagnosis | + + | Kidney, perinephric abscess - Primary Renal and perinephric abscess | + + | Pyelonephritis Pyelonephritis, unspecified | + + | Tobacco abuse Tobacco use disorder | + + | Hepatitis C virus infection without hepatic coma, unspecified chronicity | + + | MRSA infection Methicillin resistant Staphylococcus aureus in conditions classified | | elsewhere and of unspecified site | + + | IV drug user Other, mixed, or unspecified nondependent drug abuse, unspecified | + + | Renal abscess, left Renal and perinephric abscess | + + documented in this encounter Administered Medications + +--------+ +--------+------+------+ | Medication Order | MAR | Action | Dose | Rate | Site | | | Action | Date | | | | + +--------+ +--------+------+------+ | acetaminophen (TYLENOL) tablet | Given | 04/26/20 | 650 mg | | | | 650 mg 650 mg, Oral, EVERY 4 | | 19 2:35 | | | | | HOURS PRN, Pain, or fever >= 38.6 | | PM PDT | | | | | C (101.5 F), Starting Wed | | | | | | | 04/11/19 at 2248 | | | | | | + +--------+ +--------+------+------+ +-------+ +--------+---+---+ | Given | 04/23/20 | 650 mg | | | | | 19 2:12 | | | | | | AM PDT | | | | +-------+ +--------+---+---+ | Given | 04/16/20 | 650 mg | | | | | 19 4:41 | | | | | | PM PDT | | | | +-------+ +--------+---+---+ +---+---+ | | | +---+---+ + +---------+ +-----+-------+---+ | cefepime (MAXIPIME) 2 g in | New Bag | 04/14/20 | 2 g | 100 | | | sodium chloride 0.9% 50 mL IVPB | | 19 5:23 | | mL/hr | | | 2 g, Intravenous, Administer over | | AM PDT | | | | | 30 Minutes, EVERY 12 HOURS (2 | | | | | | | times per day), First dose on Nirmala | | | | | | | 04/12/19 at 1730, Activate | | | | | | | system and mix before use., | | | | | | | Indications: Intra-Abdominal | | | | | | | Infection | | | | | | + +---------+ +-----+-------+---+ +---------+ +-----+-------+---+ | New Bag | 04/13/20 | 2 g | 100 | | | | 19 5:17 | | mL/hr | | | | PM PDT | | | | +---------+ +-----+-------+---+ | New Bag | 04/13/20 | 2 g | 100 | | | | 19 4:17 | | mL/hr | | | | AM PDT | | | | +---------+ +-----+-------+---+ +---+---+ | | | +---+---+ + +---------+ +-----+-------+---+ | cefTRIAXone (ROCEPHIN) IVPB 1 g | New Bag | 04/11/20 | 1 g | 100 | | | 1 g, Intravenous, Administer | | 19 11:39 | | mL/hr | | | over 30 Minutes, EVERY 24 HOURS | | PM PDT | | | | | (Daily), First dose on Tue | | | | | | | 04/11/19 at 2330, Keep in | | | | | | | refrigerator., Indications: UTI - | | | | | | | UPPER | | | | | | + +---------+ +-----+-------+---+ +---+---+ | | | +---+---+ + +---------+ +--------+-------+---+ | DAPTOmycin (CUBICIN) 600 mg in | New Bag | 05/07/20 | 600 mg | 124 | | | sodium chloride 0.9% 50 mL IVPB | | 19 12:34 | | mL/hr | | | 600 mg (rounded from 572.4 mg = 6 | | PM PST | | | | | mg/kg | | | | | | | 95.4 kg), Intravenous, | | | | | | | Administer over 30 Minutes, EVERY | | | | | | | 24 HOURS INTERVAL, First dose on | | | | | | | 04/15/19 at 1200, | | | | | | | Indications: Intra-Abdominal | | | | | | | Infection | | | | | | + +---------+ +--------+-------+---+ +---------+ +--------+-------+---+ | New Bag | 05/06/20 | 600 mg | 124 | | | | 19 11:30 | | mL/hr | | | | AM PST | | | | +---------+ +--------+-------+---+ | New Bag | 05/05/20 | 600 mg | 124 | | | | 19 11:58 | | mL/hr | | | | AM PST | | | | +---------+ +--------+-------+---+ +---+---+ | | | +---+---+ + +-------+ +-------+---+ + | enoxaparin (LOVENOX) 40 mg/0.4 | Given | 04/15/20 | 40 mg | | Abdomen- | | mL injection 40 mg 40 mg, | | 19 8:33 | | | LLQ | | Subcutaneous, EVERY 24 HOURS | | AM PDT | | | | | (Daily), First dose on Fri | | | | | | | 04/13/19 at 1200 | | | | | | + +-------+ +-------+---+ + +-------+ +-------+---+ + | Given | 04/14/20 | 40 mg | | Abdomen- | | | 19 8:25 | | | RLQ | | | AM PDT | | | | +-------+ +-------+---+ + | Given | 04/13/20 | 40 mg | | Abdomen- | | | 19 11:50 | | | LLQ | | | AM PDT | | | | +-------+ +-------+---+ + + +---+ | | | + +---+ | fentaNYL (PF) injection 25 mcg | | | 25 mcg, Intravenous, CONDITIONAL | | | PRN, Other, maintenance moderate | | | sedation, titrated every 2 min | | | prn, Starting 05/07/19 at | | | 1247, Cat Scanner | | + +---+ | | | + +---+ + +-------+ +--------+---+---+ | fentaNYL (PF) injection | Given | 04/12/20 | 50 mcg | | | | Intravenous, PRN, Starting Nirmala | | 19 10:05 | | | | | 04/12/19 at 0950 | | AM PDT | | | | + +-------+ +--------+---+---+ +-------+ +--------+---+---+ | Given | 04/12/20 | 50 mcg | | | | | 19 10:00 | | | | | | AM PDT | | | | +-------+ +--------+---+---+ | Given | 04/12/20 | 50 mcg | | | | | 19 9:50 | | | | | | AM PDT | | | | +-------+ +--------+---+---+ +---+---+ | | | +---+---+ + +-------+ +---------+---+---+ | fentaNYL (PF) injection | Given | 04/16/20 | 100 mcg | | | | Intravenous, PRN, Starting Mon | | 19 3:52 | | | | | 04/16/19 at 1540 | | PM PDT | | | | + +-------+ +---------+---+---+ +-------+ +---------+---+---+ | Given | 04/16/20 | 100 mcg | | | | | 19 3:40 | | | | | | PM PDT | | | | +-------+ +---------+---+---+ +---+---+ | | | +---+---+ + +-------+ +--------+---+---+ | fentaNYL (PF) injection | Given | 04/24/20 | 50 mcg | | | | Intravenous, PRN, Starting Tue | | 19 1:55 | | | | | 04/24/19 at 1333 | | PM PDT | | | | + +-------+ +--------+---+---+ +-------+ +--------+---+---+ | Given | 04/24/20 | 50 mcg | | | | | 19 1:45 | | | | | | PM PDT | | | | +-------+ +--------+---+---+ | Given | 04/24/20 | 50 mcg | | | | | 19 1:40 | | | | | | PM PDT | | | | +-------+ +--------+---+---+ +---+---+ | | | +---+---+ + +-------+ +---------+---+---+ | HYDROcodone-acetaminophen | Given | 04/27/20 | 2 | | | | (NORCO) 5-325 mg per tablet 1-2 | | 19 12:16 | tablets | | | | tablet 1-2 tablet, Oral, EVERY 4 | | AM PDT | | | | | HOURS PRN, Pain, Starting Fri | | | | | | | 04/13/19 at 1032 | | | | | | + +-------+ +---------+---+---+ +-------+ +---------+---+---+ | Given | 04/26/20 | 2 | | | | | 19 8:16 | tablets | | | | | PM PDT | | | | +-------+ +---------+---+---+ | Given | 04/26/20 | 2 | | | | | 19 12:02 | tablets | | | | | PM PDT | | | | +-------+ +---------+---+---+ +---+---+ | | | +---+---+ + +-------+ +------+---+---+ | HYDROmorphone (DILAUDID) | Given | 04/13/20 | 2 mg | | | | injection 2 mg 2 mg, | | 19 8:32 | | | | | Intravenous, EVERY 4 HOURS PRN, | | AM PDT | | | | | Pain, Starting Nirmala 04/12/19 at | | | | | | | 1727 | | | | | | + +-------+ +------+---+---+ +-------+ +------+---+---+ | Given | 04/13/20 | 2 mg | | | | | 19 3:44 | | | | | | AM PDT | | | | +-------+ +------+---+---+ | Given | 04/12/20 | 2 mg | | | | | 19 11:51 | | | | | | PM PDT | | | | +-------+ +------+---+---+ +---+---+ | | | +---+---+ + +-------+ +------+---+---+ | HYDROmorphone (DILAUDID) | Given | 04/16/20 | 2 mg | | | | injection 2 mg 2 mg, | | 19 11:53 | | | | | Intravenous, EVERY 4 HOURS PRN, | | AM PDT | | | | | Moderate Pain, Severe Pain, Pain, | | | | | | | Starting 04/16/19 at 1113 | | | | | | + +-------+ +------+---+---+ +---+---+ | | | +---+---+ + +-------+ +--------+---+---+ | ibuprofen (ADVIL, MOTRIN) | Given | 04/17/20 | 600 mg | | | | tablet 600 mg 600 mg, Oral, | | 19 5:40 | | | | | EVERY 6 HOURS PRN, Pain, Starting | | AM PDT | | | | | Nirmala 04/12/19 at 1726, Give with | | | | | | | food., | | | | | | + +-------+ +--------+---+---+ +-------+ +--------+---+---+ | Given | 04/16/20 | 600 mg | | | | | 19 3:48 | | | | | | AM PDT | | | | +-------+ +--------+---+---+ | Given | 04/14/20 | 600 mg | | | | | 19 5:15 | | | | | | PM PDT | | | | +-------+ +--------+---+---+ +---+---+ | | | +---+---+ + +-------+ +---------+---+---+ | iohexol (OMNIPAQUE 350) 350 | Given | 04/15/20 | 100 mLs | | | | mg/mL injection 100 mL 100 mL, | | 19 12:41 | | | | | Intravenous, ONCE PRN, Other, | | PM PDT | | | | | Starting 04/15/19 at 1228, | | | | | | | For 1 dose, Cat Scanner | | | | | | + +-------+ +---------+---+---+ +---+---+ | | | +---+---+ + +-------+ +---------+---+---+ | iohexol (OMNIPAQUE 350) 350 | Given | 04/20/20 | 100 mLs | | | | mg/mL injection 100 mL 100 mL, | | 19 11:08 | | | | | Intravenous, ONCE PRN, Other, | | AM PDT | | | | | Starting 04/20/19 at 1059, | | | | | | | For 1 dose, Cat Scanner | | | | | | + +-------+ +---------+---+---+ +---+---+ | | | +---+---+ + +-------+ +---------+---+---+ | iohexol (OMNIPAQUE 350) 350 | Given | 05/05/20 | 100 mLs | | | | mg/mL injection 100 mL 100 mL, | | 19 7:16 | | | | | Intravenous, ONCE PRN, Other, | | PM PST | | | | | Starting 05/05/19 at 1916, For | | | | | | | 1 dose, Cat Scanner | | | | | | + +-------+ +---------+---+---+ +---+---+ | | | +---+---+ + +-------+ +-------+---+---+ | ketorolac (TORADOL) injection | Given | 04/12/20 | 30 mg | | | | 30 mg 30 mg, Intravenous, ONCE, | | 19 7:59 | | | | | Nirmala 04/12/19 at 0745, For 1 dose | | AM PDT | | | | + +-------+ +-------+---+---+ +---+---+ | | | +---+---+ + +-------+ +------+---+---+ | LORazepam (ATIVAN) tablet 1 mg | Given | 05/07/20 | 1 mg | | | | 1 mg, Oral, EVERY 6 HOURS PRN, | | 19 9:17 | | | | | Anxiety, Starting Nirmala 04/19/19 at | | AM PST | | | | | 1143 | | | | | | + +-------+ +------+---+---+ +-------+ +------+---+---+ | Given | 05/06/20 | 1 mg | | | | | 19 8:17 | | | | | | PM PST | | | | +-------+ +------+---+---+ | Given | 05/06/20 | 1 mg | | | | | 19 11:30 | | | | | | AM PST | | | | +-------+ +------+---+---+ +---+---+ | | | +---+---+ + +-------+ +------+---+---+ | midazolam (VERSED) injection | Given | 04/12/20 | 1 mg | | | | Intravenous, PRN, Starting Nirmala | | 19 10:00 | | | | | 04/12/19 at 0950 | | AM PDT | | | | + +-------+ +------+---+---+ +-------+ +------+---+---+ | Given | 04/12/20 | 1 mg | | | | | 19 9:50 | | | | | | AM PDT | | | | +-------+ +------+---+---+ +---+---+ | | | +---+---+ + +-------+ +------+---+---+ | midazolam (VERSED) injection | Given | 04/24/20 | 1 mg | | | | Intravenous, PRN, Starting Tue | | 19 1:55 | | | | | 04/24/19 at 1334 | | PM PDT | | | | + +-------+ +------+---+---+ +-------+ +------+---+---+ | Given | 04/24/20 | 1 mg | | | | | 19 1:45 | | | | | | PM PDT | | | | +-------+ +------+---+---+ | Given | 04/24/20 | 1 mg | | | | | 19 1:40 | | | | | | PM PDT | | | | +-------+ +------+---+---+ +---+---+ | | | +---+---+ + +-------+ +------+---+---+ | morphine injection 4 mg 4 mg, | Given | 04/12/20 | 4 mg | | | | Intravenous, EVERY 4 HOURS PRN, | | 19 2:26 | | | | | Pain, Severe Pain, Starting Wed | | PM PDT | | | | | 04/11/19 at 2248, For 2 days, | | | | | | | Slow IV push, not faster than 2 | | | | | | | mg/minute. If ineffective or not | | | | | | | tolerated, use hydromorphone IV | | | | | | | if ordered., | | | | | | + +-------+ +------+---+---+ +-------+ +------+---+---+ | Given | 04/12/20 | 4 mg | | | | | 19 4:35 | | | | | | AM PDT | | | | +-------+ +------+---+---+ | Given | 04/11/20 | 4 mg | | | | | 19 11:23 | | | | | | PM PDT | | | | +-------+ +------+---+---+ +---+---+ | | | +---+---+ + +-------+ +------+---+---+ | ondansetron (ZOFRAN) injection | Given | 04/18/20 | 4 mg | | | | 4 mg 4 mg, Intravenous, EVERY 4 | | 19 7:42 | | | | | HOURS PRN, Nausea, Vomiting, | | PM PDT | | | | | Starting 04/11/19 at 2249, | | | | | | | First line agent, | | | | | | + +-------+ +------+---+---+ +-------+ +------+---+---+ | Given | 04/16/20 | 4 mg | | | | | 19 4:41 | | | | | | PM PDT | | | | +-------+ +------+---+---+ +---+---+ | | | +---+---+ + +-------+ +------+---+---+ | oxyCODONE (ROXICODONE) tablet 5 | Given | 05/07/20 | 5 mg | | | | mg 5 mg, Oral, EVERY 4 HOURS | | 19 9:17 | | | | | PRN, Pain, Starting [facility] 05/03/19 | | AM PST | | | | | at 0743 | | | | | | + +-------+ +------+---+---+ +-------+ +------+---+---+ | Given | 05/07/20 | 5 mg | | | | | 19 4:44 | | | | | | AM PST | | | | +-------+ +------+---+---+ | Given | 05/07/20 | 5 mg | | | | | 19 12:27 | | | | | | AM PST | | | | +-------+ +------+---+---+ +---+---+ | | | +---+---+ + +-------+ +-------+---+---+ | oxyCODONE (ROXICODONE) tablet | Given | 05/02/20 | 10 mg | | | | 5-10 mg 5-10 mg, Oral, EVERY 4 | | 19 9:15 | | | | | HOURS PRN, Pain, Starting Fri | | PM PST | | | | | 04/27/19 at 0759 | | | | | | + +-------+ +-------+---+---+ +-------+ +-------+---+---+ | Given | 05/02/20 | 10 mg | | | | | 19 4:37 | | | | | | PM PST | | | | +-------+ +-------+---+---+ | Given | 05/02/20 | 10 mg | | | | | 19 10:14 | | | | | | AM PST | | | | +-------+ +-------+---+---+ +---+---+ | | | +---+---+ + +-------+ +------+---+---+ | polyethylene glycol (MIRALAX) | Given | 04/29/20 | 17 g | | | | powder 17 g 17 g, Oral, DAILY | | 19 10:38 | | | | | PRN Constipation, Starting Wed | | AM PST | | | | | 04/11/19 at 2249, If docusate and | | | | | | | senna ineffective or not | | | | | | | ordered., | | | | | | + +-------+ +------+---+---+ +-------+ +------+---+---+ | Given | 04/28/20 | 17 g | | | | | 19 9:14 | | | | | | AM PDT | | | | +-------+ +------+---+---+ | Given | 04/27/20 | 17 g | | | | | 19 9:48 | | | | | | AM PDT | | | | +-------+ +------+---+---+ +---+---+ | | | +---+---+ + +-------+ +--------+---+---+ | potassium chloride (KLOR-CON) | Given | 04/12/20 | 20 mEq | | | | ER tablet 20 mEq 20 mEq, Oral, | | 19 12:34 | | | | | ONCE, 04/11/19 at 2345, For 1 | | AM PDT | | | | | dose, May take with food to | | | | | | | decrease GI upset. May take with | | | | | | | food to decrease GI upset., | | | | | | + +-------+ +--------+---+---+ +---+---+ | | | +---+---+ + +-------+ +--------+---+---+ | potassium chloride (KLOR-CON) | Given | 05/05/20 | 20 mEq | | | | ER tablet 20-40 mEq 20-40 mEq, | | 19 9:07 | | | | | Oral, DAILY PRN, Per protocol, | | AM PST | | | | | Starting 04/15/19 at 0938, | | | | | | | NON-ICU Protocol Replace | | | | | | | potassium once per day based on | | | | | | | morning potassium level. Use | | | | | | | scale below to determine dose. If | | | | | | | further replacement is required | | | | | | | after this morning dose of | | | | | | | potassium, notify provider | | | | | | | Protocol NOT recommended if Scr > | | | | | | | 1.8, dialysis patients or CrCl < | | | | | | | 50 mL/min [K+] =3.6 - 4 mEql/L | | | | | | | Give 20 mEq KCl PO x 1 dose | | | | | | | [K+] 3.0 - 3.5 mEql/L Give 40 | | | | | | | mEq KCl PO x 1 dose [K+] < 3.0 | | | | | | | mEq/L Notify provider * | | | | | | | Recheck K+ 4 hours after | | | | | | | replacement is done. Give tablet | | | | | | | or liquid but never both. If | | | | | | | repeat K is still < 3.5, contact | | | | | | | provider for further instruction. | | | | | | | May take with food to decrease | | | | | | | GI upset., | | | | | | + +-------+ +--------+---+---+ +-------+ +--------+---+---+ | Given | 05/03/20 | 20 mEq | | | | | 19 8:14 | | | | | | AM PST | | | | +-------+ +--------+---+---+ | Given | 05/02/20 | 40 mEq | | | | | 19 10:14 | | | | | | AM PST | | | | +-------+ +--------+---+---+ + +---+ | | | + +---+ | potassium chloride (KLOR-CON) | | | packet 20-40 mEq 20-40 mEq, Per | | | G Tube, DAILY PRN, Per Protocol, | | | Starting 04/15/19 at 0938, | | | NON-ICU Protocol Replace | | | potassium once per day based on | | | morning potassium level. Use | | | scale below to determine dose. If | | | further replacement is required | | | after this morning dose of | | | potassium, notify provider | | | Protocol NOT recommended if Scr > | | | 1.8, dialysis patients or CrCl < | | | 50 mL/min [K+] =3.6 - 4 mEql/L | | | Give 20 mEq KCl PO x 1 dose | | | [K+] 3.0 - 3.5 mEql/L Give 40 | | | mEq KCl PO x 1 dose [K+] < 3.0 | | | mEq/L Notify provider * | | | Recheck K+ 4 hours after | | | replacement is done. Give tablet | | | or liquid but never both. If | | | repeat K is still < 3.5, contact | | | provider for further | | | instruction., | | + +---+ | | | + +---+ + +---------+ +---+-------+---+ | sodium chloride 0.9% (NS) | New Bag | 04/12/20 | | 125 | | | infusion at 125 mL/hr, | | 19 7:16 | | mL/hr | | | Intravenous, FIXED VOLUME (see | | AM PDT | | | | | admin instruction), Starting Wed | | | | | | | 04/11/19 at 2315, For 12 hours, X | | | | | | | 1500 mL, | | | | | | + +---------+ +---+-------+---+ +---------+ +--------+-------+---+ | New Bag | 04/11/20 | 1,000 | 125 | | | | 19 11:24 | mLs | mL/hr | | | | PM PDT | | | | +---------+ +--------+-------+---+ +---+---+ | | | +---+---+ + +---------+ +---+ +---+ | sodium chloride 0.9% (NS) | New Bag | 04/14/20 | | 75 mL/hr | | | infusion at 75 mL/hr, | | 19 2:21 | | | | | Intravenous, CONTINUOUS, Starting | | AM PDT | | | | | Nirmala 04/12/19 at 0845 | | | | | | + +---------+ +---+ +---+ + + +---+ +---+ | Rate/Dose Change | 04/13/20 | | 75 mL/hr | | | | 19 10:30 | | | | | | AM PDT | | | | + + +---+ +---+ | New Bag | 04/13/20 | | 125 | | | | 19 8:40 | | mL/hr | | | | AM PDT | | | | + + +---+ +---+ +---+---+ | | | +---+---+ + +-------+ +--------+---+---+ | sodium chloride 0.9% injection | Given | 05/07/20 | 20 mLs | | | | flush 20 mL 20 mL, | | 19 9:17 | | | | | Intracatheter, EVERY 12 HOURS (2 | | AM PST | | | | | times per day), First dose on Tue | | | | | | | 04/20/19 at 1115, Cat Scanner | | | | | | + +-------+ +--------+---+---+ +-------+ +--------+---+---+ | Given | 05/06/20 | 20 mLs | | | | | 19 8:17 | | | | | | PM PST | | | | +-------+ +--------+---+---+ | Given | 05/05/20 | 20 mLs | | | | | 19 8:53 | | | | | | PM PST | | | | +-------+ +--------+---+---+ +---+---+ | | | +---+---+ + +---------+ + +--------+---+ | vancomycin in NS (VANCOCIN) | New Bag | 04/14/20 | 1,250 mg | 166.7 | | | IVPB 1,250 mg 1,250 mg, | | 19 11:37 | | mL/hr | | | Intravenous, Administer over 90 | | AM PDT | | | | | Minutes, EVERY 8 HOURS INTERVAL, | | | | | | | First dose on Tue04/13/19 at | | | | | | | 2000, Trough 04/14 @ 1900. Please | | | | | | | hold if level > 20 mcg/mL. Keep | | | | | | | in refrigerator., Indications: | | | | | | | SKIN AND SOFT TISSUE ABSCESS | | | | | | + +---------+ + +--------+---+ +---------+ + +--------+---+ | New Bag | 04/14/20 | 1,250 mg | 166.7 | | | | 19 3:51 | | mL/hr | | | | AM PDT | | | | +---------+ + +--------+---+ | New Bag | 04/13/20 | 1,250 mg | 166.7 | | | | 19 8:15 | | mL/hr | | | | PM PDT | | | | +---------+ + +--------+---+ +---+---+ | | | +---+---+ + +---------+ + +--------+---+ | vancomycin in NS (VANCOCIN) | New Bag | 04/15/20 | 1,500 mg | 166.7 | | | IVPB 1,500 mg 1,500 mg (rounded | | 19 4:39 | | mL/hr | | | from 1,419 mg = 15 mg/kg | | AM PDT | | | | | 94.6 kg), Intravenous, | | | | | | | Administer over 90 Minutes, EVERY | | | | | | | 8 HOURS INTERVAL, First dose | | | | | | | (after last modification) on Sat | | | | | | | 04/14/19 at 2030, Trough 04/15 @ | | | | | | | 1930. Please hold if level > 20 | | | | | | | mcg/mL. Keep in refrigerator., | | | | | | | Indications: SKIN AND SOFT TISSUE | | | | | | | ABSCESS | | | | | | + +---------+ + +--------+---+ +---------+ + +--------+---+ | New Bag | 04/14/20 | 1,500 mg | 166.7 | | | | 19 8:42 | | mL/hr | | | | PM PDT | | | | +---------+ + +--------+---+ +---+---+ | | | +---+---+ + +---------+ +--------+-------+---+ | vancomycin in saline IVPB 1.75 | New Bag | 04/13/20 | 1.75 g | 250 | | | g 1.75 g (1,750 mg), | | 19 11:32 | | mL/hr | | | Intravenous, Administer over 120 | | AM PDT | | | | | Minutes, ONCE, 04/13/19 at | | | | | | | 1130, For 1 dose, Keep in | | | | | | | refrigerator., Indications: | | | | | | | Intra-Abdominal Infection | | | | | | + +---------+ +--------+-------+---+ +---+---+ | | | +---+---+ documented in this encounter Additional Health Concerns + + + + | Infection | Noted Time | Resolved Time | + + + + | Methicillin-resistant Staphylococcus aureus | 04/16/2019 8:48 AM | | | | PDT | | + + + + documented as of this encounter
--- OUTSIDE RECORDS SUMMARY | ~2019-05-09 | XMS | Clinical Summary ---
Demographics + + + | Address | [address] | | | [place] [address] | + + + | Home Phone | | + + + | Preferred Language | Unknown | + + + | Marital Status | Single | + + + | Synagogue Affiliation | Unknown | + + + | Race | Unknown | + + + | Ethnic Group | Unknown | + + + Author + + + | Author | [facility] | | | and [place] | + + + | Organization | [facility] | | | and [place] [...] Team Providers + +------+ + | Care Rn Bsn Name | Role | Phone | + +------+ + | No, Physician | PCP | Unavailable | + +------+ + Allergies + + + + + + | Active Allergy | Reactions | Severity | Noted | Comments | | | | | Date | | + + + + + + | Amoxicillin | Rash | Low | 10/16/20 | | | | | | 19 | | + + + + + + | Penicillins | Rash | Low | 10/16/20 | | | | | | 19 | | + + + + + + Medications + + + +---------+------+------+-------+ | Medication | Sig | Dispensed | Refills | Star | End | Statu | | | | | | t | Date | s | | | | | | Date | | | + + + +---------+------+------+-------+ | DAPTOmycin | Inject 500 mg into | 22 each | 0 | 10/2 | 11/ | Activ | | (CUBICIN) IVPB 6 | the vein every 24 | | | 3/20 | 4/20 | e | | mg/kg = 500 | hours for 22 days. | | | 19 | 19 | | | mgIndications: | Outpatient IV | | | | | | | Intra-Abdominal | antibiotics will | | | | | | | [...] | Abdomen | | | | | | + + + +---------+------+------+-------+ Active Problems + + + | Problem | Noted Date | + + + | IV drug user | 04/24/2019 | + + + | Kidney, perinephric abscess | 04/11/2019 | + + + | Pyelonephritis | 04/11/2019 | + + + | Tobacco abuse | 04/11/2019 | + + + Encounters +--------+ + + + + | Date | Type | Specialty | Care Team | Description | +--------+ + + + + | 05/08/ | Documentati | Infectious Diseases | Annmarie Giang | | | 2018 | on | | TAMMY Jimenez | | +--------+ + + + + | 04/23/ | Telephone | Hospitalist | Keri Mendes | Information Only, No | | 2018 | | | TAMMY Tristan | Triage (questions) | +--------+ + + + + | 04/19/ | Telephone | Infectious Diseases | Krysta Rodney, | Care Coordination | | 2018 | | | Combatant Swimmer | (COLLEEN line) | +--------+ + + + + | 04/16/ | Telephone | Infectious Diseases | Juan Tejada DO | Care Coordination | | 2018 | | | | | +--------+ + + + + | 04/12/ | Orders Only | Radiology | Bouchra Michael, | | | 2018 | | | RN | | +--------+ + + + + | 04/11/ | Hospital | Internal Medicine | David Calvin, | Kidney, perinephric | | 2019 - | Encounter | | DO Teresita Do, | abscess; | | | | | MD Mendoza, | Pyelonephritis; | | 05/07/ | | | MD Daron | Tobacco abuse; | | 2018 | | | Milagro Zambrano MD | Hepatitis C virus | | | | | Inez Avila, | infection without | | | | | DO | hepatic coma, | | | | | | unspecified | | | | | | chronicity; MRSA | | | | | | infection; IV drug | | | | | | user; Renal abscess, | | | | | | left | +--------+ + + + + from Last 3 Months Social History + +-------+ +--------+ + | [...] recent travel history available. | + + Last Filed Vital Signs + + + [...] | | + + + + + Plan of Treatment + + + + + | Health Maintenance | Due Date | Last Done | Comments | + + + + + | Vaccine: | | | | | Pneumococcal 19-64 | 9 | | | | (1 of 1 - PPSV23) | | | | + + + + + | Vaccine: | | | | | Dtap/Tdap/Td (1 - | 2 | | | | Tdap) | | | | + + + + + | Vaccine: Influenza | | | | | (#1) | 9 | | | + + + + + Procedures + +--------+ + + + | [...] + | CULTURE, BLOOD | STAT | 05/04/2019 | | | | | | 10:24 AM | | | | | | PST | | | + +--------+ + + + | CULTURE, BLOOD | STAT | 05/04/2019 | | | | | | 10:17 AM | | | | | | PST | | | + +--------+ + + [...] | + +--------+ + + + | VANCOMYCIN, TROUGH | ABRAHAN | 04/14/2019 | | Results [...] section. | + +--------+ + + + from Last 3 Months Results LABS - EXTERNAL SCAN (05/08/2019 12:00 [...] 2.3 (H)Comment: Testing | <0.5 mg/dL | [facility] | | | | performed at [facility], [address] | | LABORATORY | | | | [address], | | | | | | [place] [address] | | | | + + + + + + + + | Specimen | + + | Blood | + + + + + + + | Performing | Address | City/State/Zipcode | Phone Number | | Organization | | | | + + + + + | [facility] | [address] | [place] [address] | [phone] | + + + + + Sedimentation Rate (05/07/2019 3:17 PM PST) + + + + + + | Component | Value | Ref Range | Performed | Pathologist | | | | | At | Signature | + + + + + + | ESR | 85 (H)Comment: Testing | 0 - 15 mm/Hr | [facility] | | | | performed at [facility], [address] | | LABORATORY | | | | [address], | | | | | | [place] [address] | | | | + + + + + + + + | Specimen | + + | Blood | + + + + + + + | Performing | Address | City/State/Zipcode | Phone Number | | Organization | | | | + + + + + | [facility] | [address] | [place] [address] | [phone] | + + + + + CBC with Differential (05/07/2019 4:46 AM PST)Only the most recent of 16 results within time period is included. + + + + + + | Component | Value | Ref Range | Performed | Pathologist | | | | | At | Signature | + + + + + + | WBC | 11.02 (H) | 3.80 - 11.00 | [facility] | | | | | K/uL | [...] | | | Absolute | performed at [facility], [address] | K/uL | LABORATORY | | | | [address], | | | | | | [place] [address] | | | | + + + + + + + + | Specimen | + + | Blood | + + + + + + + | Performing | Address | City/State/Zipcode | Phone Number | | Organization | | | | + + + + + | [facility] | [address] | [place] [address] | [phone] | + + + + + Basic Metabolic Panel (05/07/2019 4:46 AM PST)Only the most recent of 16 results within time period is included. + + + + + + | Component | Value | Ref Range | Performed | Pathologist | | | | | At | Signature | + + + + + + | Na | 134 (L) | 135 - 145 | [facility] | | | | | mmol/L | [...] | >60Comment: GFR <60: | >60 | [facility] | | | GFR | CHRONIC KIDNEY [...] | | | | | | MDRD IDNY traceable | | | | | | equation.Testing | | | | | | performed at [facility], [address] | | | | | | [facility], | | | | | | [place] [address] | | | | + + + + + + + + | Specimen | + + | Blood | + + + + + + + | Performing | Address | City/State/Zipcode | Phone Number | | Organization | | | | + + + + + | [facility] | [address] | [place] [address] | [phone] | + + + + + CT Abdomen Pelvis w Contrast (05/05/2019 7:16 PM PST)Only the most recent of 2 results wit zari the time period is included. + + | Specimen | + + [...] | 3. Mild splenomegaly. Signed by: Liza Fulton Amit Sign | | | Date/Time: 05/05/2019 8:24 [...] | | | + +---------+ + + Drugs Of ABuse Screen, Urine (H) (05/04/2019 11:58 AM PST) + + + + + + | Component | Value | Ref Range | Performed | Pathologist | | | | | At | Signature | + + + + + + | Amp/Methamp | NEGATIVEComment: | NEG | [facility] | | | hetamine, | Positive cutoff [...] | | | | | performed at [facility] | | | | | | [address] [facility];[place], [place] | | | | | | [address] | | | | + + + [...] | + + + + + | [facility] | [address] | [place] [address] | [phone] | + + + + + Potassium (05/04/2019 6:28 AM PST)Only the most recent of 12 results within the time perio d is included. + + + + + + | Component | Value | Ref Range | Performed | Pathologist | | | | | At | Signature | + + + + + + | K | 4.2Comment: Testing | 3.5 - 4.9 | [facility] | | | | performed at [facility];[address] | mmol/L | LABORATORY | | | | [address] [facility];[place], [place] | | | | | | [address] | | | | + + + + + + + + | Specimen | + + | Blood | + + + + + + + | Performing | Address | City/State/Zipcode | Phone Number | | Organization | | | | + + + + + | [facility] | [address] | [place] [address] | [phone] | + + + + + Culture, Wound, Smear, w/Anaerobe (04/24/2019 2:40 PM PDT)Only the most recent of 2 result s within the time period is included. + + + + + + | Component | Value | Ref Range | Performed | Pathologist | | | | | At | Signature | + + + + + + | Gram Stain | 3+ | | [facility] | | | Result [...] | [facility] | | | Result | [facility], [address] [facility] | | LABORATORY | | | | [place] | | | | | | [address] | | | | + + + [...] Comment: Testing | | | performed at [facility], | | | [address] [facility] | | | [place] | | | [address] | +---+ + + + + + + | Performing | Address | City/State/Zipcode | Phone Number | | Organization | | | | + + + + + | [facility] | [address] | [place] [address] | [phone] | + + + + + CT Guided Drain Abscess Renal (04/24/2019 2:32 PM PDT) + + | Specimen | + + | | + + + + + | Impressions | Performed At | + + + | Uncomplicated drainage of left pararenal abscess. 8 mL of | [facility] | | hemorrhagic and purulent fluid was aspirated. A 10 Central African locking | | | pigtail catheter is placed. Signed by: Liza Zeng, | | | Pushpender Sign Date/Time: 04/24/2019 2:56 PM | | [...] dilated up to | | | 10 Central African. A 10 [place] African catheter is then placed over the wire. [...] tract dilated | | up to 10 [place]. A 10 [place] catheter is then placed over the wire. [...] and purulent fluid was aspirated. A 10 [place] locking pigtail catheter | | is placed. [...] +---------+ + + PTT (04/24/2019 3:55 AM PDT)Only the most recent of 2 results within the time period is in cluded. + + + + + + | Component | Value | Ref Range | Performed | Pathologist | | | | | At | Signature | + + + + + + | PTT | 33 (H)Comment: Testing | 23 - 32 seconds | [facility] | | | | performed at [facility];[address] | | LABORATORY | | | | [address];[place] | | | | | | [address] | | | | + + + + + + + + | Specimen | + + | Blood | + + + + + + + | Performing | Address | City/State/Zipcode | Phone Number | | Organization | | | | + + + + + | [facility] | [address] | [place] [address] | [phone] | + + + + + Triciaime INR (04/24/2019 3:55 AM PDT)Only the most recent of 2 results within the time jose luis od is included. + + + + + + | [...] | | | | | performed at [facility];[address] | | | | | | [facility];[place], [place] | | | | | | [address] | | | | + + + + + + + + | Specimen | + + | Blood | + + + + + + + | Performing | Address | City/State/Zipcode | Phone Number | | Organization | | | | + + + + + | [facility] | [address] | [place] [address] | [phone] | + + + + + ECHO [...] | | + +---------+ + + CT Guided Drain Abscess (04/16/2019 4:33 PM PDT)Only the most recent of 2 results within t he time period is included. + + | Specimen | + + [...] | [facility] | | | Requests | [facility];[address] | | LABORATORY | | | | [address];[place] [address] | | | | + + + [...] [place] | | | | | | [address] | | | | + + + [...] Comment: Testing | | | performed at [facility], | | | [address], | | | [place] [address] | +---+ + + + + + + | Performing | Address | City/State/Zipcode | Phone Number | | Organization | | | | + + + + + | [facility] | [address] | [place] [address] | [phone] | + + + + + Culture, Blood (04/16/2019 12:18 PM PDT)Only the most recent of 2 results within the time p lioneliod is included. + + + + + + | Component | Value | Ref Range | Performed | Pathologist | | | | | At | Signature | + + + + + + | RESULT | NO GROWTH 6 DAYS | | [facility] | | | | | | LABORATORY | | + + + + + + | RESULT | Testing performed at | | [facility] | | | | [facility], [address] | | LABORATORY | | | | [place] | | | | | | [id number]: Testing | | | | | | performed at [facility], [address] | | | | | | [address] [place], | | | | | | [place] [address] | | | | + + + + + + + + | Specimen | + + | Blood - Peripheral | | blood specimen | | (specimen) | + + + + + + + | Performing | Address | City/State/Zipcode | Phone Number | | Organization | | | | + + + + + | [facility] | [address] | [place] [address] | [phone] | + + + + + Magnesium (04/16/2019 5:49 AM PDT)Only the most recent of 3 results within the time period is included. + + + + + + | Component | Value | Ref Range | Performed | Pathologist | | | | | At | Signature | + + + + + + | Magnesium | 2.1Comment: Testing | 1.7 - 2.4 mg/dL | [facility] | | | | performed at [facility], [address] | | LABORATORY | | | | [address], | | | | | | [place] [address] | | | | + + + + + + + + | Specimen | + + | Blood | + + + + + + + | Performing | Address | City/State/Zipcode | Phone Number | | Organization | | | | + + + + + | [facility] | [address] [facility] | [place] [address] | [phone] | + + + + + CT [...] Liza Zeng, Arnold | | Sign Date/Time: 04/15/2019 12:59 PM [...] [facility]IC | | | | performed at [facility];[address] | | LABORATORY | | | | [address];[place] | | | | | | [address] | | | | + + + + + + + + | Specimen | + + | Blood | + + + + + + + | Performing | Address | City/State/Zipcode | Phone Number | | Organization | | | | + + + + + | [facility] | [address] | [place] [address] | [phone] | + + + + + Vancomycin, Trough (04/14/2019 6:50 PM PDT) + + + + + + | Component | Value | Ref Range | Performed | Pathologist | | | | | At | Signature | + + + + + + | Vancomycin, | 9.5 (L)Comment: 15 to 20 | 10 - 20 ug/mL | [facility] | | | Trough | ug/mL for [...] | | | | | performed at [facility];[address] | | | | | | [address];[place], [place] | | | | | | [address] | | | | + + + + + + + + | Specimen | + + | Blood | + + + + + + + | Performing | Address | City/State/Zipcode | Phone Number | | Organization | | | | + + + + + | [facility] | [address] | [place] [address] | [phone] | + + + + + Hepatitis [...] | | | | | d by [facility]. It has | | | | | [...] | | | | | performed by [facility], | | | | | | [address], | | | | | | [facility] [address] | | | | + + + + + + + + | Specimen | + + | | + + + + + + + | Performing | Address | City/State/Zipcode | Phone Number | | Organization | | | | + + + + + | [facility] | [address] | [place] [address] | [phone] | + + + + + HCV [...] HCV | (See Below)Comment: To | | [facility] | | | Genotype | be performed on this | | LABORATORY | | | | specimen.Testing | | | | | | performed by [facility], | | | | | | [address], | | | | | | [facility] [address] | | | | + + + + + + + + | Specimen | + + | Blood | + + + + + + + | Performing | Address | City/State/Zipcode | Phone Number | | Organization | | | | + + + + + | [facility] | [address] | [place] [address] | [phone] | + + + + + CBC [...] MPV | 10.2Comment: Testing | fl | [facility] | | | | performed at [facility], [address] | | LABORATORY | | | | [address], | | | | | | [place] [address] | | | | + + + + + + + + | Specimen | + + | Blood | + + + + + + + | Performing | Address | City/State/Zipcode | Phone Number | | Organization | | | | + + + + + | [facility] | [address] | [place] [address] | [phone] | + + + + + Culture, Urine (04/12/2019 12:55 AM PDT) + + + + + + | Component | Value | Ref Range | Performed | Pathologist | | | | | At | Signature | + + + + + + | RESULT | NO GROWTH | | [facility] | | | | | | LABORATORY | | + + + + + + | RESULT | Testing performed at | | [facility] | | | | [facility], [address] [facility] | | LABORATORY | | | | [place] | | | | | | [id number]: Testing | | | | | | performed at [facility], [address] | | | | | | [facility] [place], | | | | | | [place] [address] | | | | + + + [...] | + + + + + | [facility] | [address] | [place] [address] | [phone] | + + + + + from Last 3 Months Additional Health Concerns + + + + | Infection | Noted Time | Resolved Time | + + + + | Methicillin-resistant Staphylococcus aureus | 04/16/2019 8:48 AM | | | | PDT | | + + + + Insurance + +--------+ +--------+ +---------+--------+ | Payer | Benefi | Subscriber | Effect | Phone | Address | Type | | | t Plan | ID | jerome | | | | | | / | | Dates | | | | | | Group | | | | | | + +--------+ +--------+ +---------+--------+ | [place] | MEDICA | [id number] | | [phone] | | Med[place] | | | [place] | | 019-Pr | 2 | | id | | | PLUS | | esent | | | | + +--------+ +--------+ +---------+--------+ + +--------+ +--------+ + + | Guarantor Name | Accoun | Relation to | Date | Phone | Billing Address | | | t Type | Patient | of | | | | | | | | | | + +--------+ +--------+ + + | Timothy Conrad | Person | Self [birth year] | [address] | | | al/Fam | | 1985 | [phone] | [place] [address] | | | barb | | | 0 (Home) | | + +--------+ +--------+ + + Advance Directives + + + + + | Type | Date Recorded | Patient | Explanation | | | | Industrial Engineering Intern | | + + + + + | Power of | | | | | Auto Accessories Installer | | | | + + + + + | Advance | 04/14/2019 | | | | Directive | 4:39 PM | | | + + + + + + + + + + | Code Status | Date | Date | Comments | | | Activated | Inactivated | | + + + + + | Full Code | 04/11/2019 | 05/07/2019 | | | | 10:52 PM | 4:53 PM | | + + + + +
--- OUTSIDE RECORDS SUMMARY | ~2019-05-09 | XMS | Encounter Summary ---
Demographics + + + | Address | [address] | | | [place] [address] | + + + | Home Phone | | + + + | Preferred Language | Unknown | + + + | Marital Status | Single | + + + | Islam Affiliation | Unknown | + + + | Race | Unknown | + + + | Ethnic Group | Unknown | + + + Author + + + | Author | [facility] | | | and [place] | + + + | Organization | [facility] | | | and [place] | [...] Team Providers + +------+ + | Care Tablet Coater Name | Role | Phone | + +------+ + | No, Physician | PCP | Unavailable | + +------+ + Encounter Details +--------+ + + + + | Date | Type | Department | Care Team | Description | +--------+ + + + + | 05/08/ | Documentati | [facility] | Annmarie Giang | | | 2019 | on | INFECTIOUS DISEASE | [place] | | | | | [address] | | | | | | [place] | | | | | | [address] | | | | | | [phone] | | | +--------+ + + + [...] | | + +---+---+---+ + + | Comments: declined | + + + [...] + + documented as of this encounter Functional Status + + + [...] documented as of this encounter Progress Notes Annmarie Giang RN - 05/08/2019 12:00 PM PST Patient left hospital AMA on 05/07/19, during course of IV Daptomycin for treatment of crow l abscess., which was scheduled through 05/10/2019. PICC line d/c by RN 05/07/19 per notes below. will remove patient from iv antibiotics tracking list at this time. Call patient Schedule follow-up appointment Message Contents DO Luis F Hand Infectious Disease Delivery Rep The patient is being discharged from the hospital on intravenous antibiotics. Please see re cent notes and orders in 5by and contact patient to check in and schedule followup. Week of 04/23 Please verify ALL orders with the patients infusion service, hospital infusion department, or senior living facility and document the verification. Berenice Santana RN Registered Nurse Nursing Plan of Care Signed Date of Service: 05/07/191446 Creation Time: 05/07/191446 []Hide copied text []Hover for details Patient refused further treatment. Expressed that he would like to go home and leave AMA. T his RN contacted the hospitalist who discussed the potential risks for leaving AMA. Pt sayda lized understanding and signed the release form. This RN removed the patient's PICC line and contacted security for belongings. Security escorted the patient out of the building. Chart audit complete. Berenice Santana RN Electronically Signed by Berenice Santana RN documented in this encounter Plan of Treatment Not on filedocumented as of this encounter Visit Diagnoses Not on filedocumented in this encounter Additional Health Concerns + + + + | Infection | Noted Time | Resolved Time | + + + + | Methicillin-resistant Staphylococcus aureus | 04/16/2019 8:48 AM | | | | PDT | | + + + + documented as of this encounter"
--- OUTSIDE RECORDS SUMMARY | ~2019-05-09 | XMS | Clinical Summary ---
Demographics + + + | Address | [address] | | | [place] [address] | + + + | Home Phone | | + + + | Preferred Language | Unknown | + + + | Marital Status | Single | + + + | Congregation Affiliation | Unknown | + + + | Race | Unknown | + + + | Ethnic Group | Unknown | + + + Author + + + | Author | [facility] | | | and [place]ндрейana | + + + | Organization | [facility] [...] Team Providers + +------+ + | Care Hotel Service Supervisor Name | Role | Phone | + [...] Coordination | | 2018 | | | Consulting Technical Director | (COLLEEN line) | +--------+ + + [...] 2.3 (H)Comment: Testing | <0.5 mg/dL | [facility] | | | | performed at [facility], [address] | | LABORATORY | | | | [address], | | | | | | [place] [address] | | | | + + + + + + + + | Specimen | + + | Blood | + + + + + + + | Performing | Address | City/State/Zipcode | Phone Number | | Organization | | | | + + + + + | [facility] | [address] | [place] [address] | [phone] | + + + + + Sedimentation Rate (05/07/2019 3:17 PM PST) + + + + + + | Component | Value | Ref Range | Performed | Pathologist | | | | | At | Signature | + + + + + + | ESR | 85 (H)Comment: Testing | 0 - 15 mm/Hr | KR | | | | performed at [facility], [address] | | LABORATORY | | | | [address], | | | | | | [place] [address] | | | | + + + + + + + + | Specimen | + + | Blood | + + + + + + + | Performing | Address | City/State/Zipcode | Phone Number | | Organization | | | | + + + + + | [facility] | [address] | [place] [address] | [phone] | + + + + + CBC [...] | | | Absolute | performed at [facility], [address] | K/uL | LABORATORY | | | | [address], | | | | | | [place] [address] | | | | + + + + + + + + | Specimen | + + | Blood | + + + + + + + | Performing | Address | City/State/Zipcode | Phone Number | | Organization | | | | + + + + + | [facility] | [address] | [place] [address] | [phone] | + + + + + Basic [...] | >60Comment: GFR <60: | >60 | [facility] | | | GFR | CHRONIC [...] | | | | | performed at [facility], [address] | | | | | | [facility], | | | | | | [place] [address] | | | | + + + + + + + + | Specimen | + + | Blood | + + + + + + + | Performing | Address | City/State/Zipcode | Phone Number | | Organization | | | | + + + + + | [facility] | [address] | [place] [address] | [phone] | + + + + + CT [...] | | | | | performed at [facility];[address] | | | | | | [facility];[place], [place] | | | | | | [address] | | | | + + + [...] | + + + + + | [facility] | [address] | [place] [address] | [phone] | + + + + + Potassium [...] [facility] | | | | performed at [facility];[address] | mmol/L | LABORATORY | | | | [facility];[place], [place] | | | | | | [address] | | | | + + + + + + + + | Specimen | + + | Blood | + + + + + + + | Performing | Address | City/State/Zipcode | Phone Number | | Organization | | | | + + + + + | [facility] | [address] | [place] [address] | [phone] | + + + + + Culture, [...] | [facility] | | | Result | [facility], [address] [facility] | | LABORATORY | | | | [place] | | | | | | [address] | | | | + + + [...] Comment: Testing | | | performed at [facility], | | | [address] [facility] | | | [place] | | | [address] | +---+ + + + + + + | Performing | Address | City/State/Zipcode | Phone Number | | Organization | | | | + + + + + | [facility] | [address] | [place] [address] | [phone] | + + + + + CT Guided Drain Abscess Renal (04/24/2019 2:32 PM PDT) + + | Specimen | + + | | + + + + + | Impressions | Performed At | + + + | Uncomplicated drainage of left pararenal abscess. 8 mL of | [facility] | | hemorrhagic and purulent fluid was aspirated. A 10 Egyptian locking | | | pigtail catheter is [...] dilated up to | | | 10 Egyptian. A 10 Egyptian catheter is then placed over the wire. [...] tract dilated | | up to 10 Egyptian. A 10 Egyptian catheter is then placed over the wire. [...] and purulent fluid was aspirated. A 10 Egyptian locking pigtail catheter | | is placed. [...] [facility] | | | | performed at [facility];[address] | | LABORATORY | | | | [address];[place] | | | | | | [address] | | | | + + + + + + + + | Specimen | + + | Blood | + + + + + + + | Performing | Address | City/State/Zipcode | Phone Number | | Organization | | | | + + + + + | [facility] | [address] | [place] [address] | [phone] | + + + + + Triciaime [...] | | | | | performed at [facility];[address] | | | | | | [facility];[place], [place] | | | | | | [address] | | | | + + + + + + + + | Specimen | + + | Blood | + + + + + + + | Performing | Address | City/State/Zipcode | Phone Number | | Organization | | | | + + + + + | [facility] | [address] | [place] [address] | [phone] | + + + + + ECHO [...] | [facility] | | | Requests | [facility];[address] | | LABORATORY | | | | [address];[place] [address] | | | | + + + [...] [place] | | | | | | [address] | | | | + + + [...] Comment: Testing | | | performed at [facility], | | | [address], | | | [place] [address] | +---+ + + + + + + | Performing | Address | City/State/Zipcode | Phone Number | | Organization | | | | + + + + + | [facility] | [address] | [place] [address] | [phone] | + + + + + Culture, [...] [place] | | | | | | [id number]: Testing | | | | | | performed at [facility], [address] | | | | | | [place], | | | | | | [place] [address] | | | | + + + + + + + + | Specimen | + + | Blood - Peripheral | | blood specimen | | (specimen) | + + + + + + + | Performing | Address | City/State/Zipcode | Phone Number | | Organization | | | | + + + + + | [facility] | [address] | [place] [address] | [phone] | + + + + + Magnesium [...] KR | | | | performed at [facility], [address] | | LABORATORY | | | | [address], | | | | | | [place] [address] | | | | + + + + + + + + | Specimen | + + | Blood | + + + + + + + | Performing | Address | City/State/Zipcode | Phone Number | | Organization | | | | + + + + + | [facility] | [address] | [place] [address] | [phone] | + + + + + CT [...] D[facility] | | | | performed at [facility];[address] | | LABORATORY | | | | [address];[place] | | | | | | [address] | | | | + + + + + + + + | Specimen | + + | Blood | + + + + + + + | Performing | Address | City/State/Zipcode | Phone Number | | Organization | | | | + + + + + | [facility] | [address] | [place] [address] | [phone] | + + + + + Vancomycin, [...] | | | | pneumonia, or an PATIRCK | | | | | | equal to or greater than | | | | | | 1.0 ug/mLTesting | | | | | | performed at [facility];[address] | | | | | | [address];[place], [place] | | | | | | [address] | | | | + + + + + + + + | Specimen | + + | Blood | + + + + + + + | Performing | Address | City/State/Zipcode | Phone Number | | Organization | | | | + + + + + | [facility] | [address] | [place] [address] | [phone] | + + + + + Hepatitis [...] | | | | | d by [employer]. It has | | | | | [...] | | | | | performed by [employer], | | | | | | [address], | | | | | | [facility] [address] | | | | + + + + + + + + | Specimen | + + | | + + + + + + + | Performing | Address | City/State/Zipcode | Phone Number | | Organization | | | | + + + + + | [facility] | [address] | [place] [address] | [phone] | + + + + + HCV [...] | | | | | performed by [employer], | | | | | | [address], | | | | | | [facility] [address] | | | | + + + + + + + + | Specimen | + + | Blood | + + + + + + + | Performing | Address | City/State/Zipcode | Phone Number | | Organization | | | | + + + + + | [facility] | [address] | [place] [address] | [phone] | + + + + + CBC [...] DERIC | | | | performed at [facility], [address] | | LABORATORY | | | | [address], | | | | | | [place] [address] | | | | + + + + + + + + | Specimen | + + | Blood | + + + + + + + | Performing | Address | City/State/Zipcode | Phone Number | | Organization | | | | + + + + + | [facility] | [address] | [place] [address] | [phone] | + + + + + Culture, [...] RESULT | Testing performed at | | [facility] | | | | [facility], [address] [facility] | | LABORATORY | | | | [place] | | | | | | [id number]: Testing | | | | | | performed at [facility], [address] | | | | | | [facility] [place], | | | | | | [place] [address] | | | | + + + [...] | + + + + + | [facility] | [address] | [place] [address] | [phone] | + + + + + from [...] +---------+--------+ | MEDICAID [place] | MEDICA | [id number] | | [phone] | | Medica | [...] | 1985 | [phone] | [place] [address] | | | barb | | | 0 (Home) | | + +--------+ +--------+ + + Advance Directives + + + + + | Type | Date Recorded | Patient | Explanation | | | | Undercoat Sprayer | | + + + + + | Power of | | | | | Pond Tender | | | | + + + [...]
--- OUTSIDE RECORDS SUMMARY | ~2019-05-09 | XMS | Encounter Summary ---
Demographics + + + | Address | [address] | | | [place] [address] | + + + | Home Phone | | + + + | Preferred Language | Unknown | + + + | Marital Status | Single | + + + | Baptism Affiliation | Unknown | + + + | Race | Unknown | + + + | Ethnic Group | Unknown | + + + Author + + + | Author | [facility] | | | and [place]ндрейana | + + + | Organization | [facility] | | | and [place] [...] Team Providers + +------+ + | Care Marketing Project Lead Name | Role | Phone | + +------+ + | No, Physician | PCP | Unavailable | + +------+ + Encounter Details +--------+ + + + + | Date | Type | Department | Care Team | Description | +--------+ + + + + | 04/12/ | Orders Only | [facility] | [place], | | | 2018 | | CENTER [facility] | [place]MY | | | | | [address] | | | | | | [place] | | | | | | [address] | | | | | | [phone] | | | +--------+ + + + [...] + + documented as of this encounter Plan of Treatment Not on [...]
--- OUTSIDE RECORDS SUMMARY | ~2019-05-09 | XMS | Encounter Summary ---
Demographics + + + | Address | [address] | | | [place] [address] | + + + | Home Phone | | + + + | Preferred Language | Unknown | + + + | Marital Status | Single | + + + | Roman Catholic Affiliation | Unknown | + + + | Race | Unknown | + + + | Ethnic Group | Unknown | + + + Author + + + | Author | [facility] | | | and Андрейana | + + + | Organization | [facility] | | | and [place] | [...] Team Providers + +------+ + | Care Fleet Sales Manager Name | Role | Phone | + +------+ + | No, Physician | PCP | Unavailable | + +------+ + Reason for Visit + + + | Reason | Comments | + + + | Care Coordination | PICC line | + + + Encounter Details +--------+ + + + + | Date | Type | Department | Care Team | Description | +--------+ + + + + | 04/19/ | Telephone | [facility] | Krysta Rodney, | Care Coordination | | 2019 | | INFECTIOUS DISEASE | Service Order Clerk | [facility] | | | | [address] | | | | | | [place], [place] | | | | | | [address] | | | | | | [phone] | | | +--------+ + + + [...]
--- OUTSIDE RECORDS SUMMARY | ~2019-05-09 | XMS | Encounter Summary ---
Demographics + + + | Address | [address] | | | [place] [address] | + + + | Home Phone | | + + + | Preferred Language | Unknown | + + + | Marital Status | Single | + + + | Islam Affiliation | Unknown | + + + | Race | Unknown | + + + | Ethnic Group | Unknown | + + + Author + + + | Author | [facility] | | | and Андрейana | + + + | Organization | [facility] | | | and [place] [...] Team Providers + +------+ + | Care Home School Liaison Officer Name | Role | Phone | + +------+ + | No, Physician | PCP | Unavailable | + +------+ + Reason for Visit + + + | Reason | Comments | + + + | Care Coordination | | + + + Encounter Details +--------+ + + + + | Date | Type | Department | Care Team | Description | +--------+ + + + + | 04/16/ | Telephone | [facility] | TerrellJuanDO | Care Coordination | | 2019 | | INFECTIOUS DISEASE | [address] | | | | | [address] | [place] [address] | | | | | [place], [place] | [phone] | | | | | [address] | | | | | | [phone] | | | +--------+ + + + [...]
--- OUTSIDE RECORDS SUMMARY | ~2019-05-09 | XMS | Encounter Summary ---
Demographics + + + | Address | [address] | | | [place] [address] | + + + | Home Phone | | + + + | Preferred Language | Unknown | + + + | Marital Status | Single | + + + | Mormonism Affiliation | Unknown | + + + | Race | Unknown | + + + | Ethnic Group | Unknown | + + + Author + + + | Author | [facility] | | | and Андрейana | + + + | Organization | [facility] | | | and [place] [...] Team Providers + +------+ + | [employer] Name | Role | Phone | + [...] + + | 04/11/ | Hospital | [facility] | David Calvin, | Kidney, perinephric | | 2019 - | Encounter | [facility] | DO [address] | abscess; | | | | [address] | [place] [address] | Pyelonephritis; | | 05/07/ | [address] | [phone] | Tobacco abuse; | | 2019 | | [place], [place] | | Hepatitis C virus | | | | [phone] | Teresita Do MD | infection without | | | | [phone] | [address] | hepatic coma, | | | | | [place] [address] | unspecified | | | | | [phone] | chronicity; MRSA | | | | | | infection; IV drug | | | | | Daron Mendoza MD | user; Renal abscess, | | | | | [address] | left | | | | | [place] [address] | | | | | | [phone] | | | | | | | | | | | | Milagro Zambrano MD | | | | | | [address] | | | | | | [place] [address] | | | | | | [phone] | | | | | | | | | | | | Inez Avila DO | | | | | | [address] | | | | | | [place] [address] | | | | | | [phone] | | | | | | | [...] fat infiltration with thickening of anterior and automatic developer ior pararenal fascia. No pneumoperitoneum. BODY WALL [...] with severe renal infection and intervention 2. [place] like perinephric inflammatory fluid collection inferior to [...] the a ppropriate level and a 10 [place]uan multipurpose drainage catheter was placed and secured [...] the tract dilat ed up to 10 Nicaraguan. A 10 Nicar[place]uan catheter is then placed over the wire. [...] purulent fluid w as aspirated. A 10 [place]ar[place]uan locking pigtail catheter is placed. Signed by: [...] sedation, position: prone Electronically signed by: David Morataya MD 05/07/2019 12:36 PM Vascular and Interventional Radiology Bobby Marti MD - 05/07/2019 12:22 PM PSTFormatting of this note might be different from the [facility] Service: Infectious Diseases Progress Note Hospital [...] Procedure Component Value Units Date/Time Culture, Blood [[id number]] Collected: 05/04/19 1024 Order Status: Completed Lab Status: Preliminary result Updated: 05/05/191615 Specimen: Peripheral Blood Special Requests RT HAND Special Requests Testing performed at [facility];[address] [place] [address] RESULT NO GROWTH AT THIS TIME RESULT Testing performed at [address] [address] Comment: Testing performed at [facility], [address] [place] [address] Culture, Blood [[id number]] Collected: 05/04/19 1017 Order Status: Completed Lab Status: Preliminary result Updated: 05/05/19 161 Specimen: Peripheral Blood Special Requests RT AC Special Requests Testing performed at [facility];[address] [place] [address] RESULT NO GROWTH AT THIS TIME RESULT Testing performed at [address] [address] Comment: Testing performed at [facility], [address] [place] [address] Culture, Wound, Smear, w/Anaerobe [[id number]] (Abnormal) (Susceptibility) Collected: 1440 Order Status: Completed Lab Status: Final result Updated: 04/28/19 1030 Gram Stain Result -- 3+ WBC'S SEEN Gram Stain Result -- 4+ GRAM POSITIVE COCCI Gram Stain Result Testing performed at [facility], [address] [place] [address] RESULT -- 4+ METHICILLIN RESISTANT S. AUREUS (MRSA) Susceptibility Staphylococcus aureus,Methicillin resistant (MRSA) (1) Antibiotic Interpretation Microscan Method Status Clindamycin Sensitive SUSCEPTIBLE PATRICK Final Erythromycin Resistant RESISTANT PATRICK Final Gentamicin Sensitive SUSCEPTIBLE PATRICK Final Levofloxacin Resistant RESISTANT PATRICK Final Moxifloxacin Intermediate INTERMEDIATE PTARICK Final Oxacillin Resistant RESISTANT PATRICK Final Tetracycline Sensitive SUSCEPTIBLE PATRICK Final Trimethoprim + Sulfamethoxazole Sensitive SUSCEPTIBLE PATRICK Final Vancomycin Sensitive SUSCEPTIBLE PATRICK Final Testing performed at [facility], [address] [place] [address] Culture, Body Fluid Sterile [[id number]] Collected: 04/24/19 1436 Order Status: Canceled Lab [...] might be different from the or iginal. [facility]: Hospitalist Progress Note Hospital Day: LOS: [...] - Repeat imaging above. Discussed case with chief controller Urology Dr. Nair, who was kind enough to review imaging. Patient may require nephrectomy, would recommend IR drainage again if at all possible but if not nephrectomy is indicated. Unfortunately does not have privileges for nephrectomy at [facility]. Will re-discuss with IR. Will need [...] Marti MD - 05/06/2019 11:28 AM PST [facility]: Infectious Diseases Progress Note Hospital Day: [...] Procedure Component Value Units Date/Time Culture, Blood [[id number]] Collected: 05/04/19 1024 Order Status: Completed Lab Status: Preliminary result Updated: 05/05/19 1616 Specimen: Peripheral Blood Special Requests RT HAND Special Requests Testing performed at [facility];[address] [place] [address];[place] [address] RESULT NO GROWTH AT THIS TIME RESULT Testing performed at [facility], [address] [place] [address] Comment: Testing performed at [facility], [address] [place] [address] Culture, Blood [[id number]] Collected: 05/04/19 1017 Order Status: Completed Lab Status: Preliminary result Updated: 05/05/19 161 Specimen: Peripheral Blood Special Requests RT AC Special Requests Testing performed at [facility];[address] [place] [address] RESULT NO GROWTH AT THIS TIME RESULT Testing performed at [facility], [address] [place] [address] Comment: Testing performed at [facility], [address] [place] [address] Culture, Wound, Smear, w/Anaerobe [[id number]] (Abnormal) (Susceptibility) Collected: 1440 Order Status: Completed Lab Status: Final result Updated: 04/28/19 1030 Gram Stain Result -- 3+ WBC'S SEEN Gram Stain Result -- 4+ GRAM POSITIVE COCCI Gram Stain Result Testing performed at [facility], [address] [place] [address] RESULT -- 4+ METHICILLIN RESISTANT S. AUREUS [...] Sensitive SUSCEPTIBLE PATRICK Final Testing performed at [facility], [address] [place] [address] Culture, Body Fluid Sterile [[id number]] Collected: 04/24/19 1436 Order Status: Canceled Lab Status: No result Specimen: Body Fluid from Abscess Microbiology Results (72 hrs) Procedure Component Value Units Date/Time Culture, Blood [[id number]] Collected: 05/04/19 1024 Order Status: Completed Lab Status: Preliminary result Updated: 05/05/19 161 Specimen: Peripheral Blood Special Requests RT HAND Special Requests Testing performed at [facility];[address] [place] [address] RESULT NO GROWTH AT THIS TIME RESULT Testing performed at [facility], [address] [place] [address] Comment: Testing performed at [facility], [address] [place] [address] Culture, Blood [[id number]] Collected: 05/04/19 1017 Order Status: Completed Lab Status: Preliminary result Updated: 05/05/19 1616 Specimen: Peripheral Blood Special Requests RT AC Special Requests Testing performed at [facility];[address] [place] [address];[place] [address] RESULT NO GROWTH AT THIS TIME RESULT Testing performed at [facility], [address] [place] [address] Comment: Testing performed at [facility], [address] [place] [address], [place] [address] IMAGING: Images of CT abdomen and pelvis [...] might be different from the or iginal. [facility]: Hospitalist Progress Note Hospital Day: LOS: [...] - Repeat imaging above. Discussed case with chief controller Urology Dr. Nair, who was kind enough to review imaging. Patient may require nephrectomy, would recommend IR drainage again if at all possible but if not nephrectomy is indication. Unfortunately does not have privileges fo r nephrectomy at [facility]. Will re-discuss with IR. Will consult Dr. Souza on Tuesday. Nicontine use Refuses nicotine patch History of methamphetamine abuse Disposition: Inpatient. Code Status: Full Code Inez Avila DO 05/06/2019 8:35 AM Bobby Marti MD - 05/05/2019 4:39 PM PSTFormatting of this note might be different from the or iginal. [facility]: Infectious Diseases Progress Note Hospital Day: [...] Procedure Component Value Units Date/Time Culture, Blood [[id number]] Collected: 05/04/19 1024 Order Status: Completed Lab Status: Preliminary result Updated: 05/05/19 1616 Specimen: Peripheral Blood Special Requests RT HAND Special Requests Testing performed at [facility];[address] [place] [address] RESULT NO GROWTH AT THIS TIME RESULT Testing performed at [address] [address] Comment: Testing performed at [facility], [address] [place] [address] Culture, Blood [[id number]] Collected: 05/04/19 1017 Order Status: Completed Lab Status: Preliminary result Updated: 05/05/19 1616 Specimen: Peripheral Blood Special Requests RT AC Special Requests Testing performed at [facility];[address] [place] [address] RESULT NO GROWTH AT THIS TIME RESULT Testing performed at [facility], [facility] [place] [address] Comment: Testing performed at [facility], [address] [place] [address] Culture, Wound, Smear, w/Anaerobe [[id number]] (Abnormal) (Susceptibility) Collected: 1440 Order Status: Completed Lab Status: Final result Updated: 04/28/19 1030 Gram Stain Result -- 3+ WBC'S SEEN Gram Stain Result -- 4+ GRAM POSITIVE COCCI Gram Stain Result Testing performed at [facility], [address] [place] [address] RESULT -- 4+ METHICILLIN RESISTANT S. AUREUS [...] Sensitive SUSCEPTIBLE PATRICK Final Testing performed at [facility], [address] [place] [address] Culture, Body Fluid Sterile [[id number]] Collected: 04/24/19 1436 Order Status: Canceled Lab Status: No result Specimen: Body Fluid from Abscess Microbiology Results (72 hrs) Procedure Component Value Units Date/Time Culture, Blood [[id number]] Collected: 05/04/19 1024 Order Status: Completed Lab Status: Preliminary result Updated: 05/05/19 1616 Specimen: Peripheral Blood Special Requests RT HAND Special Requests Testing performed at [facility];[address] [place] [address] RESULT NO GROWTH AT THIS TIME RESULT Testing performed at [address] [address] Comment: Testing performed at [facility], [address] [place] [address] Culture, Blood [[id number]] Collected: 05/04/19 1017 Order Status: Completed Lab Status: Preliminary result Updated: 05/05/19 161 Specimen: Peripheral Blood Special Requests RT AC Special Requests Testing performed at [facility];[address] [place] [address] RESULT NO GROWTH AT THIS TIME RESULT Testing performed at [facility], [address] [place] [address] Comment: Testing performed at [facility], [address] [place] [address] IMAGING: Images of CT abdomen and pelvis [...] attending provider: Inez Avila DO Discussed with watch caser regarding discharge planning. Bobby Albert MD, MPH Infectious Diseases 05/05/19 pencerInez DO - 05/05/2019 8:04 AM PSTFormatting of this note might be different from the or iginal. [facility]: Hospitalist Progress Note Hospital Day: LOS: [...] for input(s): IRON, TIBC, PCTSAT, FERRITIN, TSH, [id number], FOLATE in the last 168 hours. No [...] pencerInez DO - 05/04/2019 7:59 AM PST [facility]: Hospitalist Progress Note Hospital Day: LOS: [...] for input(s): IRON, TIBC, PCTSAT, FERRITIN, TSH, [id number], FOLATE in the last 168 hours. No [...] Douglas DO - 05/03/2019 7:42 AM PST [facility]: Hospitalist Progress Note Hospital Day: LOS: [...] for input(s): IRON, TIBC, PCTSAT, FERRITIN, TSH, [id number], FOLATE in the last 168 hours. 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 Will likely remain [...] for input(s): IRON, TIBC, PCTSAT, FERRITIN, TSH, [id number], FOLATE in the last 168 hours. 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 Will likely remain [...] for input(s): IRON, TIBC, PCTSAT, FERRITIN, TSH, [id number], FOLATE in the last 168 hours. No [...] fat infiltration with thickening of anterior and automatic developer ior pararenal fascia. No pneumoperitoneum. BODY WALL [...] with severe renal infection and intervention 2. [place] like perinephric inflammatory fluid collection inferior to [...] the a ppropriate level and a 10 [place]uan multipurpose drainage catheter was placed and secured [...] PARARENAL ABSCESS CLINICAL INFORMATION: Residual undrained left liusa al collection PROCEDURE: Prior to the procedure, [...] the tract dilat ed up to 10 Nicar[place]uan. A 10 [place]ar[place]uan catheter is then placed over the wire. [...] purulent fluid w as aspirated. A 10 [place]ar[place]uan locking pigtail catheter is placed. Signed by: [...] Zambrano MD - 04/30/2019 5:10 AM PST [facility]: Hospitalist Progress Note Hospital Day: LOS: 19 days SUBJECTIVE Patient Summary: From HPI Transfer note Dr. Do:" Mr. 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 No [...] with severe renal infection and intervention 2. [place] like perinephric inflammatory fluid collection inferior to [...] and the tract dilated up to 10 Nicar[place]uan. A 10 [place]ar[place]uan catheter is then placed over the wire. [...] and purulent fluid was aspirated. A 10 [place]araguan locking pigtail catheter is placed. Signed by: [...] not drained by ca jefferyter -Dr. Morataya/IR --repeat CT-guided renal abscess 04/24/19. -MRSA -PICC line placed 04/19/2019 -Patient will require 4 weeks of IV daptomycin, till May 24 -Material Control Supervisor involved looking at tentative placement? -Patient agreeable [...] admission, indicates he had been residing in [place] and had moved u to [place] to be with his mother, with intentions of stopping his drug. He confirms wantin g to stop and agrees to continuing hospitalization Disposition: Code Status: Full Code Milagro Zambrano MD 04/30/2019 13:14 ilagro Zambrano MD - 04/29/2019 5:38 AM PST [facility]: Hospitalist Progress Note Hospital Day: LOS: 18 days SUBJECTIVE Patient Summary: From HPI Transfer note Dr. Do:" Mr. 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 No [...] with severe renal infection and intervention 2. [place] like perinephric inflammatory fluid collection inferior to [...] and the tract dilated up to 10 Nicaraguan. A 10 Nicaraguan catheter is then placed over the wire. [...] and purulent fluid was aspirated. A 10 [place]araguan locking pigtail catheter is placed. Signed by: [...] weeks of IV daptomycin, till May 24 -Material Control Supervisor involved looking at tentative placement? -Patient agreeable to plan of care -Stable -Drains to be removed on Tuesday -prn Ocycodone for pain Nicontine use Refuses nicotine patch History of methamphetamine abuse -Patient reports history of IV methamphetamine abuse, indicates that he last used approxima tely 1 week prior to admission, indicates he had been residing in [place] and had moved u to [place] to be with his mother, with intentions [...] fat infiltration with thickening of anterior and automatic developer ior pararenal fascia. No pneumoperitoneum. BODY WALL [...] with severe renal infection and intervention 2. [place] like perinephric inflammatory fluid collection inferior to [...] the a ppropriate level and a 10 [place]araguan multipurpose drainage catheter was placed and secured [...] the tract dilat ed up to 10 Nicaraguan. A 10 Nicaraguan catheter is then placed over the wire. [...] purulent fluid w as aspirated. A 10 [place]araguan locking pigtail catheter is placed. Signed by: [...] Swenson MD - 04/28/2019 5:48 AM PDT [facility]: Hospitalist Progress Note Hospital Day: LOS: 17 days SUBJECTIVE Patient Summary: From HPI Transfer note Dr. Do:" Mr. 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 No [...] with severe renal infection and intervention 2. [place] like perinephric inflammatory fluid collection inferior to [...] and the tract dilated up to 10 [place]araguan. A 10 Nicaraguan catheter is then placed over the wire. [...] and purulent fluid was aspirated. A 10 [place]araguan locking pigtail catheter is placed. Signed by: [...] weeks of IV daptomycin, till May 24 -Material Control Supervisor involved looking at tentative placement? -Patient agreeable to plan of care -Stable -Drains to be removed on Tuesday -prn Ocycodone for pain Nicontine use Refuses nicotine patch History of methamphetamine abuse -Patient reports history of IV methamphetamine abuse, indicates that he last used approxima tely 1 week prior to admission, indicates he had been residing in [place] and had moved u p to [place] to be with his mother, with intentions [...] note might be different from the original. [facility]: Hospitalist Progress Note Hospital Day: LOS: 16 days SUBJECTIVE Patient Summary: From HPI Transfer note Dr. Do:" Mr. 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 No [...] to the appropriate level and a 10 Nicaraguan multipurpose drainage catheter was placed and secured [...] with severe renal infection and intervention 2. [place] like perinephric inflammatory fluid collection inferior to [...] and the tract dilated up to 10 Nicaraguan. A 10 [place]uan catheter is then placed over the wire. [...] and purulent fluid was aspirated. A 10 Nicaraguan locking pigtail catheter is placed. Signed by: [...] weeks of IV daptomycin, till May 24 -Material Control Supervisor involved looking at tentative placement? -Patient agreeable to plan of care -Stable -prn Ocycodone for pain Nicontine use Refuses nicotine patch History of methamphetamine abuse -Patient reports history of IV methamphetamine abuse, indicates that he last used approxima tely 1 week prior to admission, indicates he had been residing in [place] and had moved [facility] to [place] to be with his mother, with intentions [...] hurt to be flushed. This RN and fast food shift lead RN reminded the patient how importa nt it is to flush the tubes. PRN pain medication given per orders. Patient cooperative and c nelia throughout the rest of the shift. End of shift review completed. Radha Fairchild RN Milagro Swenson MD - 04/26/2019 6:01 AM PDT . [facility]: Hospitalist Progress Note Hospital Day: LOS: 15 days SUBJECTIVE Patient Summary: From HPI Transfer note Dr. Do:" Mr. 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 No [...] to the appropriate level and a 10 Nicaraguan multipurpose drainage catheter was placed and secured [...] with severe renal infection and intervention 2. [place] like perinephric inflammatory fluid collection inferior to [...] and the tract dilated up to 10 Nicaraguan. A 10 Nicaraguan catheter is then placed over the wire. [...] and purulent fluid was aspirated. A 10 Nicaraguan locking pigtail catheter is placed. Signed by: [...] weeks of IV daptomycin, till May 24 -Material Control Supervisor involved looking at tentative placement? -Patient agreeable [...] admission, indicates he had been residing in [place] and had moved u p to [place] to be with his mother, with intentions of stopping his drug. He confirms wantin g to stop and agrees to continuing hospitalization Disposition: Code Status: Full Code Milagro Zambrano MD 04/26/2019 6:01 uan Manuel, Milagro Alberts MD - 04/25/2019 11:56 AM PDT [facility]: Hospitalist Progress Note Hospital Day: LOS: 14 days SUBJECTIVE Patient Summary: From HPI Transfer note Dr. Do:" Mr. 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 No [...] to the appropriate level and a 10 Nicaraguan multipurpose drainage catheter was placed and secured [...] with severe renal infection and intervention 2. [place] like perinephric inflammatory fluid collection inferior to [...] and the tract dilated up to 10 Nicaraguan. A 10 Nicaraguan catheter is then placed over the wire. [...] and purulent fluid was aspirated. A 10 Nicaraguan locking pigtail catheter is placed. Signed by: [...] weeks of IV daptomycin, till May 24 -Material Control Supervisor involved looking at tentative placement? -Patient agreeable [...] admission, indicates he had been residing in [place] and had moved [facility] to [place] to be with his mother, with intentions of stopping his drug. He confirms wantin g to stop and agrees to continuing hospitalization Disposition: Code Status: Full Code Milagro Zambrano MD 04/25/2019 11:56 rsales, Ave mancini MD - 04/25/2019 10:38 AM PDTFormatting of this note might be different from the [facility] Service: Infectious Diseases Progress Note Hospital Day: [...] initially presented to the emergency department at [facility] in [place] where work-up included a CT scan revealing [...] Neurologic: Irritable; angry LABS: MICRO Culture, Blood [[id number]] Collected: 04/16/191217 Order Status: Completed Specimen: Peripheral Blood Updated: 04/22/19519 Special Requests RAC Special Requests Testing performed at [facility];[address] [place] [address] RESULT NO GROWTH 6 DAYS RESULT Testing performed at [facility], [address] [place] [address] 41454 Comment: Testing performed at [facility], [address] [place] [address] Culture, Blood [[id number]] Collected: 04/16/191217 Order Status: Completed Specimen: Peripheral Blood Updated: 04/22/19519 RESULT NO GROWTH 6 DAYS RESULT Testing performed at [facility], [address] [place] [address] 21702 Comment: Testing performed at [address] [address] Culture, Body Fluid Sterile [[id number]] Collected: 04/24/19 1436 Order Status: Canceled Specimen: Body Fluid from Abscess Culture, Body Fluid Sterile [[id number]] (Abnormal) Collected: 04/16/19 1545 Order Status: Completed Updated: 04/20/19 0627 Special Requests LT KIDNEY DRAINAGE Special Requests Testing performed at [facility];[address] [place] [address];[place] [address] Gram Stain Result -- 2+ WBC'S SEEN Gram Stain Result NO ORGANISMS SEEN Gram Stain Result Testing performed at [facility], [address] [place] [address] 9[address] RESULT --Abnormal 2+ METHICILLIN RESISTANT S. AUREUS [...] Sensitive SUSCEPTIBLE PATRICK Final Testing performed at [facility], [address] [place] [address], [place] [address] Culture, Body Fluid Sterile [[id number]] Collected: 04/16/19 1600 Order Status: Canceled Specimen: Body Fluid from Abscess Culture, Body Fluid Sterile [[id number]] Order Status: No result Specimen: Body Fluid from Abscess Culture, Body Fluid Sterile [[id number]] Collected: 04/12/19 1003 Order Status: Canceled Specimen: Body Fluid from Abscess Culture, Urine [[id number]] Collected: 04/12/19 0055 Order Status: Completed Specimen: Urine, Clean Catch Updated: 04/13/19 1012 RESULT NO GROWTH RESULT Testing performed at [facility], [address] [place] [address] 08252 Comment: Testing performed at [facility], [address] [place] [address]017 Culture, Wound, Smear, w/Anaerobe [[id number]] Collected: 04/24/19 1440 Order Status: Completed Updated: 04/24/19 2344 Gram Stain Result -- 3+ WBC'S SEEN Gram Stain Result -- 4+ GRAM POSITIVE COCCI Gram Stain Result Testing performed at [facility], [address] [place] [address] 219[address] RESULT PENDING Comment: Testing performed at [facility], [address] [place] [address] 20810 Culture, Wound, Smear, w/Anaerobe [[id number]] (Abnormal) Collected: 04/12/19 0955 Order Status: Completed Updated: 04/16/19 0721 Special Requests LEFT FLANK DRAIN Special Requests Testing performed at [facility];[address] [place] [address];[place] [address] Gram Stain Result -- 2+ WBC'S SEEN Gram Stain Result -- 4+ GRAM POSITIVE COCCI Gram Stain Result Testing performed at [facility], [address] [place] [address] 17080 RESULT --Abnormal 3+ METHICILLIN RESISTANT S. AUREUS [...] Sensitive SUSCEPTIBLE PATRICK Final Testing performed at [facility], [address] [place] [address], [place] [address] All labs were reviewed.Data: Recent Results (from the past 24 hour(s)) Culture, Wound, Smear, w/Anaerobe Result Value Ref Range Gram Stain Result 3+ WBC'S SEEN Gram Stain Result 4+ GRAM POSITIVE COCCI Gram Stain Result Testing performed at [facility], [address] [place] [address] RESULT PENDING Potassium Result Value Ref Range [...] in a controlled setting, [facility], as the patient does have recent injection drug use which would prevent discharge home with a PICC line. ID will see less frequently. D/W NAS and Dr. Juan Manuel Fish will assume care starting 04/28/19 IF there are questions. Thank you for allowing me to participate in the care of your patient. Dictation software, Octapoly, used which may contain error for similar [...] this note might be different from the [facility] Service: Hospitalist Progress Note Hospital Day: LOS: 13 days SUBJECTIVE Patient Summary: From HPI Transfer note Dr. Do:" Mr. 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 No [...] to the appropriate level and a 10 [place]ar[place]uan multipurpose drainage catheter was placed and secured [...] with severe renal infection and intervention 2. [place] like perinephric inflammatory fluid collection inferior to [...] weeks of IV daptomycin, till May 24 -Material Control Supervisor involved looking at tentative placement? -Patient agreeable [...] admission, indicates he had been residing in [place] and had moved u to [place] to be with his mother, with intentions of stopping his drug. He confirms wantin g to stop and agrees to continuing hospitalization Disposition: Code Status: Full Code Milagro Zambrano MD 04/24/2019 5:55 Daron Ma MD - 04/23/2019 10:33 AM PDT [facility]: Hospitalist Progress Note Hospital Day: LOS: 12 days SUBJECTIVE Patient Summary: Transfer note Dr. Do:" Mr. 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 [place] like perinephric inflammatory fluid collection inferior to [...] weeks of IV daptomycin, till May 10 -Material Control Supervisor involved looking at tentative placement? 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 Do:" Mr. 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 [place] like perinephric inflammatory fluid collection inferior to [...] weeks of IV daptomycin, till May 10 -Material Control Supervisor involved looking at tentative placement? 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 [facility]: Infectious Diseases Progress Note Hospital Day: [...] intact. Follows commands. LABS: MICRO Culture, Blood [[id number]] Collected: 04/16/191217 Order Status: Completed Specimen: Peripheral Blood Updated: 04/17/191626 Special Requests RAC Special Requests Testing performed at [facility];[address] [place] [address] RESULT NO GROWTH AT THIS TIME RESULT Testing performed at [facility], [address] [place] [address] 33390 Comment: Testing performed at [facility], [address] [place] [address] Culture, Blood [[id number]] Collected: 04/16/191217 Order Status: Completed Specimen: Peripheral Blood Updated: 04/17/191626 RESULT NO GROWTH AT THIS TIME RESULT Testing performed at [facility], [address] [place] [address] 61869 Comment: Testing performed at [facility], [address] [place] [address] 05464 Culture, Body Fluid Sterile [[id number]] (Abnormal) Collected: 04/16/19 6932 Order Status: Completed Updated: 04/20/19 0627 Special Requests LT KIDNEY DRAINAGE Special Requests Testing performed at [facility];[address] [place] [address] Gram Stain Result -- 2+ WBC'S SEEN Gram Stain Result NO ORGANISMS SEEN Gram Stain Result Testing performed at [facility], [address] [place] [address] 04681 RESULT --Abnormal 2+ METHICILLIN RESISTANT S. AUREUS [...] Sensitive SUSCEPTIBLE PATRICK Final Testing performed at [facility], [address] [place] [address] 00452 Culture, Body Fluid Sterile [[id number]] Collected: 04/16/19 1600 Order Status: Canceled Specimen: Body Fluid from Abscess Culture, Body Fluid Sterile [[id number]] Order Status: No result Specimen: Body Fluid from Abscess Culture, Body Fluid Sterile [[id number]] Collected: 04/12/19 1003 Order Status: Canceled Specimen: Body Fluid from Abscess Culture, Urine [[id number]] Collected: 04/12/19 0055 Order Status: Completed Specimen: Urine, Clean Catch Updated: 04/13/19 1012 RESULT NO GROWTH RESULT Testing performed at [facility], [address] [place] [address] 58958 Comment: Testing performed at [facility], [address] [place] [address] 86957 Culture, Wound, Smear, w/Anaerobe [[id number]] (Abnormal) Collected: 04/12/19 0955 Order Status: Completed Updated: 04/16/19 0721 Special Requests LEFT FLANK DRAIN Special Requests Testing performed at [facility];[address] [place] [address] Gram Stain Result -- 2+ WBC'S SEEN Gram Stain Result -- 4+ GRAM POSITIVE COCCI Gram Stain Result Testing performed at [facility], [address] [place] [address] 27709 RESULT --Abnormal 3+ METHICILLIN RESISTANT S. AUREUS [...] Sensitive SUSCEPTIBLE PATRICK Final Testing performed at [address] [address] All labs were reviewed.Data: Recent Results (from [...] with severe renal infection and intervention 2. [place] like perinephric inflammatory fluid collection inferior to [...] a c ontrolled setting, most likely a group home facility or swing bed, as the patient does have recent injection drug use which would prevent discharge home with a PICC line. D/W Dr. Mendoza Dictation software, Octapoly, used which may contain error for similar sounding words even af ter review. Personal communication requested for any clarification. Portions of this chart may have been copied from previous notes for continuity of care purp freida Jason MD Infectious Diseases 04/21/2019 Fr ankur Ma MD - 04/21/2019 10:44 AM PDTFormatting of this note might be different from the [facility]. [facility]: Hospitalist Progress Note Hospital Day: LOS: 10 days SUBJECTIVE Patient Summary: Transfer note Dr. Do:" Mr. Conrad is a 34 yr old man with chronic HCV infection presented at [facility] ED for 1 week for constant LLQ [...] to the appropriate level and a 10 [place]ar[place]uan multipurpose drainage catheter was placed and secured [...] with severe renal infection and intervention 2. [place] like perinephric inflammatory fluid collection inferior to [...] weeks of IV daptomycin, till May 10 -Material Control Supervisor involved looking at tentative placement? 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 He confirms wantin g to stop and agrees to continuing hospitalization DVT prophylaxis with lovenox Disposition: Pending Code Status: Full Code Daron Mendoza MD 04/21/2019 10:44 Daron Ma MD - 04/20/2019 12:28 PM PDT [facility]: Hospitalist Progress Note Hospital Day: LOS: 9 days SUBJECTIVE Patient Summary: Transfer note Dr. Do:" Mr. Conrad is a 34 yr old man with chronic HCV infection presented at [facility] ED for 1 week for constant LLQ [...] to the appropriate level and a 10 [place]ar[place]uan multipurpose drainage catheter was placed and secured [...] weeks of IV daptomycin, till May 10 -Material Control Supervisor involved looking at tentative placement? 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 He confirms wantin g to stop and agrees to continuing hospitalization DVT prophylaxis with lovenox Disposition: Pending Code Status: Full Code Daron Mendoza MD 04/20/2019 12:28 Juan Pereyra DO - 7:18 AM PDT [facility]: Infectious Diseases Progress note Hospital Day: [...] londono presented to the emergency department at [facility] in [place] where work-up included a CT scan revealing [...] a c ontrolled setting, most likely a group home facility or swing bed, as the patient does have recent injection drug use which would prevent discharge home with a PICC line. Code Status: Full Code Juan Tejada DO 04/20/19 Daron Ma MD - 11:36 AM PDT [facility]: Hospitalist Progress Note Hospital Day: LOS: 8 days SUBJECTIVE Patient Summary: Transfer note Dr. Do:" Mr. Conrad is a 34 yr old man with chronic HCV infection presented at [facility] ED for 1 week for constant LLQ [...] be done in the throat setting, likely group home facility or swing bed. 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 He confirms wantin g to stop and agrees to continuing hospitalization DVT prophylaxis with lovenox Disposition: Pending Code Status: Full Code Daron Mendoza MD 04/19/2019 11:36 Juan Pereyra, DO - 9:17 AM PDT [facility]: Infectious Diseases Progress note Hospital Day: [...] londono presented to the emergency department at [facility] in [place] where work-up included a CT scan revealing [...] in a controlled setting, most likely a group home facility or swing bed , as the [...] night. VS otherwise stable. 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 Do:" Mr. Conrad is a 34 yr old man with chronic HCV infection presented at [facility] ED for 1 week for constant LLQ [...] to the appropriate level and a 10 [place]ar[place]uan multipurpose drainage catheter was placed and secured [...] Juan Pereyra DO - 10:24 AM PDT [facility]: Infectious Diseases Progress note Hospital Day: [...] londono presented to the emergency department at [facility] in [place] where work-up included a CT scan revealing [...] in a controlled setting, most likely a group home facility or swing bed , as the patient does have recent injection drug use which would prevent discharge home with a PICC line. Code Status: Full Code Juan Tejada DO 04/18/19 Ave Woodruff RN - 7:47 PM PDTEnd of shift chart check complete. Juan Pereyra DO - 04/17/2019 9:58 AM PDT [facility]: Infectious Diseases Progress note Hospital Day: [...] londono presented to the emergency department at [facility] in [place] where work-up included a CT scan revealing [...] chloride Current Facilty-Administered PRN Medications Ordered in [facility] Medication Dose Route Frequency Provider Last [...] KIDNEY DRAINAGE Special Requests Testing performed at [facility];[address] [facility];[place] [address] Gram Stain Result 2+ WBC'S SEEN Gram Stain Result NO ORGANISMS SEEN Gram Stain Result Testing performed at [facility], [address] [place] [address] RESULT PENDING CBC with Differential Result Value [...] fat infiltration with thickening of anterior and automatic developer ior pararenal fascia. No pneumoperitoneum. BODY WALL [...] the a ppropriate level and a 10 Nicaraguan multipurpose drainage catheter was placed and secured [...] Ma MD - 04/17/2019 8:27 AM PDT [facility]: Hospitalist Progress Note Hospital Day: LOS: 6 days SUBJECTIVE Patient Summary: Transfer note Dr. Do:" Mr. Conrad is a 34 yr old man with chronic HCV infection presented at [facility] ED for 1 week for constant LLQ [...] KIDNEY DRAINAGE Special Requests Testing performed at [facility];[address] [place] [address] Gram Stain Result 2+ WBC'S SEEN Gram Stain Result NO ORGANISMS SEEN Gram Stain Result Testing performed at [facility], [address] [place] [address] RESULT PENDING CBC with Differential Result Value [...] to the appropriate level and a 10 [place]ar[place]uan multipurpose drainage catheter was placed and secured [...] fat infiltration with thickening of anterior and automatic developer ior pararenal fascia. No pneumoperitoneum. BODY WALL [...] the a ppropriate level and a 10 [place]ar[place]uan multipurpose drainage catheter was placed and secured [...] Juan Pereyra DO - 11:44 AM PDT [facility]: Infectious Diseases Progress note Hospital Day: [...] londono presented to the emergency department at [facility] in [place] where work-up included a CT scan revealing [...] Caba MD - 04/16 11:15 AM PDT [facility]: Hospitalist Progress Note Hospital Day: LOS: 5 days SUBJECTIVE Patient Summary: Mr. Conrad is a 34 yr old man with chronic HCV infection presented at [facility] ED for 1 week for constant LLQ [...] month ago; will obtain blood cultures from [facility]. Scheduled Medications DAPTOmycin 6 mg/kg Intravenous Q24H [...] to the appropriate level and a 10 [place]araguan multipurpose drainage catheter was placed and secured [...] of IVDU, will obtain blood cultures from [facility]; if +m, will repeat blood culture s today and consider 2DEcho as well Continue to trend wbc Consider hypovolemic hyponatremia resolved Will continue to monitor Hypokalemia repleted Will continue to monitor and replace as necessary Nicontine use On nicotine patch DVT prophylaxis with lovenox Disposition: Pending Code Status: Full Code Teresita Do MD 04/16/2019 11:15 Juan Pereyra DO - 04/15 10:07 AM PDT [facility]: Infectious Diseases Progress note Hospital Day: [...] londono presented to the emergency department at [facility] in [place] where work-up included a CT scan revealing [...] Caba MD - 04/15 6:23 AM PDT [facility]: Hospitalist Progress Note Hospital Day: LOS: 4 days SUBJECTIVE Patient Summary: Mr. Conrad is a 34 yr old man with chronic HCV infection, presented at [facility] ED for 1 week for constant LLQ [...] to the appropriate level and a 10 [place]araguan multipurpose drainage catheter was placed and secured [...] greater than 1.0 ug/mL Testing performed at [facility];[address] [place] [address] Drawn at 1850 on 04/14 (Goal 10-20 mcg/mL) Trough subtherapeutic. Plan per protocol: Change vancomycin to 1500 mg Q8H Daily level while on Q8H frequency Next Trough Level due: 04/15/2019 @ 1930 04/14/2019 19:49 Pharmacist: YUMI MCLEOD PharmD Juan Pereyra DO - 1 9:34 AM PDT [facility]: Infectious Diseases Progress note Hospital Day: [...] londono presented to the emergency department at [facility] in [place] where work-up included a CT scan revealing [...] Caba MD - 04/14 9:18 AM PDT [facility]: Hospitalist Progress Note Hospital Day: LOS: 3 days SUBJECTIVE Patient Summary: Mr. Conrad is a 34 yr old man with chronic HCV infection, presented at [facility] ED for 1 week for constant LLQ [...] to the appropriate level and a 10 [place]ar[place]uan multipurpose drainage catheter was placed and secured [...] Teresita Do MD 04/14/2019 9:18 Mckenzie Rojas, [facility] - 04/13/2019 2:16 PM PDT Clinical Pharmacy [...] Value Units Date/Time Culture, Wound, Smear, w/Anaerobe [[id number]] Collected: 04/12/19 0955 Order Status: Completed Lab Status: Preliminary result Updated: 04/12/19 235 Special Requests LEFT FLANK DRAIN Special Requests Testing performed at [facility];[address] [place] [address];[place] [address] Gram Stain Result -- 2+ WBC'S SEEN Gram Stain Result -- 4+ GRAM POSITIVE COCCI Gram Stain Result Testing performed at [address] [address] RESULT PENDING Comment: Testing performed at [facility], [address] [place] [address] Culture, Urine [[id number]] Collected: 04/12/19 0055 Order Status: Completed Lab Status: Final result Updated: 04/13/19 101 Specimen: Urine, Clean Catch RESULT NO GROWTH RESULT Testing performed at [facility], [address] [place] [address] Comment: Testing performed at [address] [address] Labs Component Value Date/Time CREA 0.59 (L) [...] Juan Pereyra DO - 9:59 AM PDT [facility]: Infectious Diseases Progress note Hospital Day: [...] londono presented to the emergency department at [facility] in [place] where work-up included a CT scan revealing [...] Harvoni, but never started treatment before leaving [place]. He has not had any follow-up for [...] glycol Current Facilty-Administered PRN Medications Ordered in [facility] Medication Dose Route Frequency Provider Last [...] Caba MD - 04/13 8:59 AM PDT [facility]: Hospitalist Progress Note Hospital Day: LOS: 2 days SUBJECTIVE Patient Summary: Mr. Conrad is a 34 yr old man with chronic HCV infection, presented at [facility] ED for 1 week for constant LLQ [...] FLANK DRAIN Special Requests Testing performed at [facility];[address] [facility];[place] [address] Gram Stain Result 2+ WBC'S SEEN Gram Stain Result 4+ GRAM POSITIVE COCCI Gram Stain Result Testing performed at [facility], [address] [place] [address] RESULT PENDING CBC with Differential Result Value [...] might be different from the origi nal. [facility]: Hospitalist Progress Note Hospital Day: LOS: 1 day SUBJECTIVE Patient Summary: Mr. Conrad is a 34 yr old man with chronic HCV infection, presented at [place] ED for 1 week for constant LLQ [...] 10:20 PM PDTPt received devon adamson from [facility]. EMS bedside report. Phone report received from [...] 2.3 (H)Comment: Testing | <0.5 mg/dL | [facility] | | | | performed at [facility], [address] | | LABORATORY | | | | [address], | | | | | | [place] [address] | | | | + + + + + + + + | Specimen | + + | Blood | + + + + + + + | Performing | Address | City/State/Zipcode | Phone Number | | Organization | | | | + + + + + | [facility] | [address] | [place] [address] | [phone] | + + + + + Sedimentation Rate (05/07/2019 3:17 PM PST) + + + + + + | Component | Value | Ref Range | Performed | Pathologist | | | | | At | Signature | + + + + + + | ESR | 85 (H)Comment: Testing | 0 - 15 mm/Hr | [facility] | | | | performed at [facility], [address] | | LABORATORY | | | | [address], | | | | | | [place] [address] | | | | + + + + + + + + | Specimen | + + | Blood | + + + + + + + | Performing | Address | City/State/Zipcode | Phone Number | | Organization | | | | + + + + + | [facility] | [address] | [place] [address] | [phone] | + + + + + CBC [...] | | | Absolute | performed at [facility], [address] | K/uL | LABORATORY | | | | [facility], | | | | | | [place] [address] | | | | + + + + + + + + | Specimen | + + | Blood | + + + + + + + | Performing | Address | City/State/Zipcode | Phone Number | | Organization | | | | + + + + + | [facility] | [address] | [place] [address] | [phone] | + + + + + Basic [...] | >60Comment: GFR <60: | >60 | [facility] | | | GFR | [...] | | | | | performed at [facility], [address] | | | | | | [facility], | | | | | | [place] [address] | | | | + + + + + + + + | Specimen | + + | Blood | + + + + + + + | Performing | Address | City/State/Zipcode | Phone Number | | Organization | | | | + + + + + | [facility] | [address] | [place] [address] | [phone] | + + + + + CBC [...] | | | Absolute | performed at [facility];[address] | K/uL | LABORATORY | | | | [address];[place] | | | | | | [address] | | | | + + + + + + + + | Specimen | + + | Blood | + + + + + + + | Performing | Address | City/State/Zipcode | Phone Number | | Organization | | | | + + + + + | [facility] | [address] | [place] [address] | [phone] | + + + + + CT [...] | | | Absolute | performed at [facility], [address] | [address] | LABORATORY | | | | [address], | | | | | | [place] [address] | | | | + + + + + + + + | Specimen | + + | Blood | + + + + + + + | Performing | Address | City/State/Zipcode | Phone Number | | Organization | | | | + + + + + | [facility] | [address] | [place] [address] | [phone] | + + + + + Basic [...] | >60Comment: GFR <60: | >60 | [facility] | | | GFR | [...] | | | | | | MDRD IDNC traceable | | | | | | equation.Testing | | | | | | performed at [facility], [address] | | | | | | [facility], | | | | | | [place] [address] | | | | + + + + + + + + | Specimen | + + | Blood | + + + + + + + | Performing | Address | City/State/Zipcode | Phone Number | | Organization | | | | + + + + + | [facility] | [address] | [place] [address] | [phone] | + + + + + Drugs [...] | | | | | performed at [facility];[address] | | | | | | [address];[place], [place] | | | | | | [address] | | | | + + + [...] | + + + + + | [facility] | [address] | [place] [address] | [phone] | + + + + + Potassium (05/04/2019 6:28 AM PST) + + + + + + | Component | Value | Ref Range | Performed | Pathologist | | | | | At | Signature | + + + + + + | K | 4.2Comment: Testing | 3.5 - 4.9 | [facility] | | | | performed at [facility];[address] | mmol/L | LABORATORY | | | | [address];[place], [place] | | | | | | [address] | | | | + + + + + + + + | Specimen | + + | Blood | + + + + + + + | Performing | Address | City/State/Zipcode | Phone Number | | Organization | | | | + + + + + | [facility] | [address] | [place] [address] | [phone] | + + + + + Potassium (05/03/2019 12:43 PM PST) + + + + + + | Component | Value | Ref Range | Performed | Pathologist | | | | | At | Signature | + + + + + + | K | 4.3Comment: Testing | 3.5 - 4.9 | [facility] | | | | performed at [facility];[address] | mmol/L | LABORATORY | | | | [address];[place], [place] | | | | | | [address] | | | | + + + + + + + + | Specimen | + + | Blood | + + + + + + + | Performing | Address | City/State/Zipcode | Phone Number | | Organization | | | | + + + + + | [facility] | [address] | [place] [address] | [phone] | + + + + + Basic [...] | >60Comment: GFR <60: | >60 | [facility] | | | GFR | [...] | | | | | performed at [facility], [address] | | | | | | [facility], | | | | | | [place] [address] | | | | + + + + + + + + | Specimen | + + | Blood | + + + + + + + | Performing | Address | City/State/Zipcode | Phone Number | | Organization | | | | + + + + + | [facility] | [address] | [place] [address] | [phone] | + + + + + CBC [...] | | | Absolute | performed at [facility], [address] | K/uL | LABORATORY | | | | [address], | | | | | | [place] [address] | | | | + + + + + + + + | Specimen | + + | Blood | + + + + + + + | Performing | Address | City/State/Zipcode | Phone Number | | Organization | | | | + + + + + | [facility] | [address] | [place] [address] | [phone] | + + + + + Potassium (05/02/2019 3:58 PM PST) + + + + + + | Component | Value | Ref Range | Performed | Pathologist | | | | | At | Signature | + + + + + + | K | 4.0Comment: Testing | 3.5 - 4.9 | [facility] | | | | performed at [facility];[address] | mmol/L | LABORATORY | | | | [address];[place] | | | | | | [address] | | | | + + + + + + + + | Specimen | + + | Blood | + + + + + + + | Performing | Address | City/State/Zipcode | Phone Number | | Organization | | | | + + + + + | [facility] | [address] | [place] [address] | [phone] | + + + + + Basic [...] | | | | | | MDRD IDNC traceable | | | | | | equation.Testing | | | | | | performed at [facility], [address] | | | | | | [facility], | | | | | | [place] [address] | | | | + + + + + + + + | Specimen | + + | Blood | + + + + + + + | Performing | Address | City/State/Zipcode | Phone Number | | Organization | | | | + + + + + | [facility] | [address] | [place] [address] | [phone] | + + + + + CBC [...] | | | Absolute | performed at [facility], [address] | K/uL | LABORATORY | | | | [facility], | | | | | | [place] [address] | | | | + + + + + + + + | Specimen | + + | Blood | + + + + + + + | Performing | Address | City/State/Zipcode | Phone Number | | Organization | | | | + + + + + | [facility] | [address] | [place] [address] | [phone] | + + + + + Basic [...] | >60Comment: GFR <60: | >60 | [facility] | | | GFR | [...] | | | | | | MDRD IDNC traceable | | | | | | equation.Testing | | | | | | performed at [facility], [address] | | | | | | [facility], | | | | | | [place] [address] | | | | + + + + + + + + | Specimen | + + | Blood | + + + + + + + | Performing | Address | City/State/Zipcode | Phone Number | | Organization | | | | + + + + + | [facility] | [address] | [place] [address] | [phone] | + + + + + CBC [...] | | | Absolute | performed at [facility], [address] | K/uL | LABORATORY | | | | [address], | | | | | | [place] [address] | | | | + + + + + + + + | Specimen | + + | Blood | + + + + + + + | Performing | Address | City/State/Zipcode | Phone Number | | Organization | | | | + + + + + | [facility] | [address] | [place] [address] | [phone] | + + + + + Basic [...] | | | | | | MDRD [facility] traceable | | | | | | equation.Testing | | | | | | performed at [facility];[address] | | | | | | [facility];[place], [place] | | | | | | [address] | | | | + + + + + + + + | Specimen | + + | Blood | + + + + + + + | Performing | Address | City/State/Zipcode | Phone Number | | Organization | | | | + + + + + | [facility] | [address] [facility] | [place] [address] | [phone] | + + + + + CBC [...] 0.10Comment: Testing | 0.00 - 0.10 | [facility] | | | Absolute | performed at [facility];[address] | K/uL | LABORATORY | | | | [address];[place] | | | | | | [address] | | | | + + + + + + + + | Specimen | + + | Blood | + + + + + + + | Performing | Address | City/State/Zipcode | Phone Number | | Organization | | | | + + + + + | [facility] | [address] | [place] [address] | [phone] | + + + + + Basic [...] | | | | | performed at [facility], [address] | | | | | | [facility], | | | | | | [place] [address] | | | | + + + + + + + + | Specimen | + + | Blood | + + + + + + + | Performing | Address | City/State/Zipcode | Phone Number | | Organization | | | | + + + + + | [facility] | [address] | [place] [address] | [phone] | + + + + + CBC [...] | | | Absolute | performed at [facility], [address] | K/uL | LABORATORY | | | | [address], | | | | | | [place] [address] | | | | + + + + + + + + | Specimen | + + | Blood | + + + + + + + | Performing | Address | City/State/Zipcode | Phone Number | | Organization | | | | + + + + + | [facility] | [address] | [place] [address] | [phone] | + + + + + CBC [...] | | | Absolute | performed at [facility];[address] | K/uL | LABORATORY | | | | [address];[place] | | | | | | [address] | | | | + + + + + + + + | Specimen | + + | | + + + + + + + | Performing | Address | City/State/Zipcode | Phone Number | | Organization | | | | + + + + + | [facility] | [address] | [place] [address] | [phone] | + + + + + Basic [...] | | | | | | MDRD IDNC traceable | | | | | | equation.Testing | | | | | | performed at [facility];[address] | | | | | | [facility];[place], [place] | | | | | | [address] | | | | + + + + + + + + | Specimen | + + | Blood | + + + + + + + | Performing | Address | City/State/Zipcode | Phone Number | | Organization | | | | + + + + + | [facility] | [address] | [place] [address] | [phone] | + + + + + Basic [...] | 9.0 | 8.5 - 10.5 | [facility] | | | | | mg/dL | LABORATORY | | + + + + + + | Estimated | >60Comment: GFR <60: | >60 | [facility] | | | GFR | [...] | | | | | performed at [facility] | | | | | | [facility];[place], [place] | | | | | | [address] | | | | + + + + + + + + | Specimen | + + | Blood | + + + + + + + | Performing | Address | City/State/Zipcode | Phone Number | | Organization | | | | + + + + + | [facility] | [address] | [place] [address] | [phone] | + + + + + CBC [...] | | | Absolute | performed at [facility];[address] | K/uL | LABORATORY | | | | [address];[place], [place] | | | | | | [address] | | | | + + + + + + + + | Specimen | + + | Blood | + + + + + + + | Performing | Address | City/State/Zipcode | Phone Number | | Organization | | | | + + + + + | [facility] | [address] | [place] [address] | [phone] | + + + + + Potassium (04/27/2019 4:16 AM PDT) + + + + + + | Component | Value | Ref Range | Performed | Pathologist | | | | | At | Signature | + + + + + + | K | 4.1Comment: Testing | 3.5 - 4.9 | [facility] | | | | performed at [facility];[address] | mmol/L | LABORATORY | | | | [address];[place], [place] | | | | | | [address] | | | | + + + + + + + + | Specimen | + + | Blood | + + + + + + + | Performing | Address | City/State/Zipcode | Phone Number | | Organization | | | | + + + + + | [facility] | [address] | [place] [address] | [phone] | + + + + + Potassium (04/26/2019 4:06 AM PDT) + + + + + + | Component | Value | Ref Range | Performed | Pathologist | | | | | At | Signature | + + + + + + | K | 3.8Comment: Testing | 3.5 - 4.9 | [facility] | | | | performed at [facility];[address] | mmol/L | LABORATORY | | | | [address];[place], [place] | | | | | | [address] | | | | + + + + + + + + | Specimen | + + | Blood | + + + + + + + | Performing | Address | City/State/Zipcode | Phone Number | | Organization | | | | + + + + + | [facility] | [address] | [place] [address] | [phone] | + + + + + Potassium (04/25/2019 4:36 AM PDT) + + + + + + | Component | Value | Ref Range | Performed | Pathologist | | | | | At | Signature | + + + + + + | K | 4.1Comment: Testing | 3.5 - 4.9 | [facility] | | | | performed at [facility];[address] | mmol/L | LABORATORY | | | | [address];[place] | | | | | | [address] | | | | + + + + + + + + | Specimen | + + | Blood | + + + + + + + | Performing | Address | City/State/Zipcode | Phone Number | | Organization | | | | + + + + + | [facility] | [address] | [place] [address] | [phone] | + + + + + Culture, [...] [place] | | | | | | [address] | | | | + + + [...] Comment: Testing | | | performed at [facility], | | | [address] [facility] | | | [place] | | | [address] | +---+ + + + + + + | Performing | Address | City/State/Zipcode | Phone Number | | Organization | | | | + + + + + | [facility] | [address] | [place] [address] | [phone] | + + + + + CT Guided Drain Abscess Renal (04/24/2019 2:32 PM PDT) + + | Specimen | + + | | + + + + + | Impressions | Performed At | + + + | Uncomplicated drainage of left pararenal abscess. 8 mL of | [facility] | | hemorrhagic and purulent fluid was aspirated. A 10 Nicaraguan locking | | | pigtail catheter is [...] dilated up to | | | 10 Nicaraguan. A 10 Nicaraguan catheter is then placed over the wire. [...] tract dilated | | up to 10 Nicaraguan. A 10 Nicaraguan catheter is then placed over the wire. [...] and purulent fluid was aspirated. A 10 Nicaraguan locking pigtail catheter | | is placed. [...] [facility] | | | | performed at [facility];[address] | | LABORATORY | | | | [address];[place] | | | | | | [address] | | | | + + + + + + + + | Specimen | + + | Blood | + + + + + + + | Performing | Address | City/State/Zipcode | Phone Number | | Organization | | | | + + + + + | [facility] | [address] | [place] [address] | [phone] | + + + + + Protime [...] | | | | | performed at [facility] | | | | | | [facility];[place], [place] | | | | | | [address] | | | | + + + + + + + + | Specimen | + + | Blood | + + + + + + + | Performing | Address | City/State/Zipcode | Phone Number | | Organization | | | | + + + + + | [facility] | [address] | [place] [address] | [phone] | + + + + + Potassium (04/23/2019 5:26 AM PDT) + + + + + + | Component | Value | Ref Range | Performed | Pathologist | | | | | At | Signature | + + + + + + | K | 4.1Comment: Testing | 3.5 - 4.9 | [facility] | | | | performed at [facility];[address] | mmol/L | LABORATORY | | | | [address];[place] | | | | | | [address] | | | | + + + + + + + + | Specimen | + + | Blood | + + + + + + + | Performing | Address | City/State/Zipcode | Phone Number | | Organization | | | | + + + + + | [facility] | [address] | [place] [address] | [phone] | + + + + + Potassium [...] | | | | [address];[place], [place] | | | | | | [address] | | | | + + + + + + + + | Specimen | + + | Blood | + + + + + + + | Performing | Address | City/State/Zipcode | Phone Number | | Organization | | | | + + + + + | [facility] | [address] [facility] [address] [address] | [place] [address] | [phone] | + + + + + Potassium (04/21/2019 5:52 PM PDT) + + + + + + | Component | Value | Ref Range | Performed | Pathologist | | | | | At | Signature | + + + + + + | K | 4.0Comment: Testing | 3.5 - 4.9 | [facility] | | | | performed at [facility];[address] | mmol/L | LABORATORY | | | | [address];[place] | | | | | | [address] | | | | + + + + + + + + | Specimen | + + | Blood | + + + + + + + | Performing | Address | City/State/Zipcode | Phone Number | | Organization | | | | + + + + + | [facility] | [address] | [place] [address] | [phone] | + + + + + Potassium (04/21/2019 5:45 AM PDT) + + + + + + | Component | Value | Ref Range | Performed | Pathologist | | | | | At | Signature | + + + + + + | K | 3.8Comment: Testing | 3.5 - 4.9 | [facility] | | | | performed at [facility];[address] | mmol/L | LABORATORY | | | | [address];[place], [place] | | | | | | [address] | | | | + + + + + + + + | Specimen | + + | Blood | + + + + + + + | Performing | Address | City/State/Zipcode | Phone Number | | Organization | | | | + + + + + | [facility] | [address] | [place] [address] | [phone] | + + + + + ECHO [...] | | | infection and intervention 2. [place] like perinephric | | | inflammatory fluid [...] and intervention | | | | 2. [place] like perinephric inflammatory fluid collection inferior to [...] 4.3Comment: Testing | 3.5 - 4.9 | [facility] | | | | performed at [facility];[address] | mmol/L | LABORATORY | | | | [address];[place], [place] | | | | | | [address] | | | | + + + + + + + + | Specimen | + + | Blood | + + + + + + + | Performing | Address | City/State/Zipcode | Phone Number | | Organization | | | | + + + + + | [facility] | [address] [facility] | [place] [address] | [phone] | + + + + + Potassium (04/19/2019 5:36 AM PDT) + + + + + + | Component | Value | Ref Range | Performed | Pathologist | | | | | At | Signature | + + + + + + | K | 4.3Comment: Testing | 3.5 - 4.9 | [facility] | | | | performed at [facility];[address] | mmol/L | LABORATORY | | | | [address];[place] | | | | | | [address] | | | | + + + + + + + + | Specimen | + + | Blood | + + + + + + + | Performing | Address | City/State/Zipcode | Phone Number | | Organization | | | | + + + + + | [facility] | [address] | [place] [address] | [phone] | + + + + + Basic [...] | | | | | performed at [facility], [address] | | | | | | [facility], | | | | | | [place] [address] | | | | + + + + + + + + | Specimen | + + | Blood | + + + + + + + | Performing | Address | City/State/Zipcode | Phone Number | | Organization | | | | + + + + + | [facility] | [address] | [place] [address] | [phone] | + + + + + CBC [...] 0.03Comment: Testing | 0.00 - 0.10 | [facility] | | | Absolute | performed at [facility], [address] | K/uL | LABORATORY | | | | [address], | | | | | | [place] [address] | | | | + + + + + + + + | Specimen | + + | Blood | + + + + + + + | Performing | Address | City/State/Zipcode | Phone Number | | Organization | | | | + + + + + | [facility] | [address] | [place] [address] | [phone] | + + + + + Basic [...] | | | | | [place] [address] | | | | + + + + + + + + | Specimen | + + | Blood | + + + + + + + | Performing | Address | City/State/Zipcode | Phone Number | | Organization | | | | + + + + + | [facility] | [address] | [place] [address] | [phone] | + + + + + CBC [...] 0.08Comment: Testing | 0.00 - 0.10 | [facility] | | | Absolute | performed at [facility], [address] | K/uL | LABORATORY | | | | [address], | | | | | | [place] [address] | | | | + + + + + + + + | Specimen | + + | Blood | + + + + + + + | Performing | Address | City/State/Zipcode | Phone Number | | Organization | | | | + + + + + | [facility] | [address] | [place] [address] | [phone] | + + + + + CT [...] | [facility] | | | Requests | [facility];[address] | | LABORATORY | | | | [address];[place] [address] | | | | + + + [...] [place] | | | | | | [address] | | | | + + + [...] Comment: Testing | | | performed at [facility], | | | [address], | | | [place] [address] | +---+ + + + + + + | Performing | Address | City/State/Zipcode | Phone Number | | Organization | | | | + + + + + | [facility] | [address] | [place] [address] | [phone] | + + + + + Culture, Blood (04/16/2019 12:18 PM PDT) + + + + + + | Component | Value | Ref Range | Performed | Pathologist | | | | | At | Signature | + + + + + + | RESULT | NO GROWTH 6 DAYS | | [facility] | | | | | | LABORATORY | | + + + + + + | RESULT | Testing performed at | | [facility] | | | | [facility], [address] [facility] | | LABORATORY | | | | [place] | | | | | | [id number]: Testing | | | | | | performed at [facility], [address] | | | | | | [facility] [place], | | | | | | [place] [id number] | | | | + + + + + + + + | Specimen | + + | Blood - Peripheral | | blood specimen | | (specimen) | + + + + + + + | Performing | Address | City/State/Zipcode | Phone Number | | Organization | | | | + + + + + | [facility] | [address] | [place] [address] | [phone] | + + + + + Culture, [...] LABORATORY | | | | [place] [address] | | | | + + + + + + | RESULT | NO GROWTH 6 DAYS | | [facility] | | | | | | LABORATORY | | + + + + + + | RESULT | Testing performed at | | [facility] | | | | [facility], [address] | | LABORATORY | | | | [place] | | | | | | [id number]: Testing | | | | | | performed at [facility], [address] | | | | | [address] [place] | | | | | | [address] | | | | + + + + + + + + | Specimen | + + | Blood - Peripheral | | blood specimen | | (specimen) | + + + + + + + | Performing | Address | City/State/Zipcode | Phone Number | | Organization | | | | + + + + + | [facility] | [address] | [place] [address] | [phone] | + + + + + Magnesium (04/16/2019 5:49 AM PDT) + + + + + + | Component | Value | Ref Range | Performed | Pathologist | | | | | At | Signature | + + + + + + | Magnesium | 2.1Comment: Testing | 1.7 - 2.4 mg/dL | [facility] | | | | performed at [facility], [address] | | LABORATORY | | | | [address], | | | | | | [place] [address] | | | | + + + + + + + + | Specimen | + + | Blood | + + + + + + + | Performing | Address | City/State/Zipcode | Phone Number | | Organization | | | | + + + + + | [facility] | [address] | [place] [address] | [phone] | + + + + + Basic [...] | | | | | performed at [facility], [address] | | | | | | [facility], | | | | | | [place] [address] | | | | + + + + + + + + | Specimen | + + | Blood | + + + + + + + | Performing | Address | City/State/Zipcode | Phone Number | | Organization | | | | + + + + + | [facility] | [address] | [place] [address] | [phone] | + + + + + CBC [...] 0.08Comment: Testing | 0.00 - 0.10 | [facility] | | | Absolute | performed at [facility], [address] | K/uL | LABORATORY | | | | [address], | | | | | | [place] [address] | | | | + + + + + + + + | Specimen | + + | Blood | + + + + + + + | Performing | Address | City/State/Zipcode | Phone Number | | Organization | | | | + + + + + | [facility] | [address] | [place] [address] | [phone] | + + + + + CT [...] detailed above. | | | Signed by: Liaz Zeng, Pushpender Sign Date/Time: 04/15/2019 | | [...] DERIC | | | | performed at [facility];[address] | | LABORATORY | | | | [address];[place], [place] | | | | | | [address] | | | | + + + + + + + + | Specimen | + + | Blood | + + + + + + + | Performing | Address | City/State/Zipcode | Phone Number | | Organization | | | | + + + + + | [facility] | [address] | [place] [address] | [phone] | + + + + + Basic [...] | | | | | performed at [facility], [address] | | | | | | [facility], | | | | | | [place] [address] | | | | + + + + + + + + | Specimen | + + | Blood | + + + + + + + | Performing | Address | City/State/Zipcode | Phone Number | | Organization | | | | + + + + + | [facility] | [address] | [place] [address] | [phone] | + + + + + CBC [...] | | | Absolute | performed at [facility], [address] | K/uL | LABORATORY | | | | [address], | | | | | | [place] [address] | | | | + + + + + + + + | Specimen | + + | Blood | + + + + + + + | Performing | Address | City/State/Zipcode | Phone Number | | Organization | | | | + + + + + | [facility] | [address] | [place] [address] | [phone] | + + + + + Vancomycin, Trough (04/14/2019 6:50 PM PDT) + + + + + + | Component | Value | Ref Range | Performed | Pathologist | | | | | At | Signature | + + + + + + | Vancomycin, | 9.5 (L)Comment: 15 to 20 | 10 - 20 ug/mL | [facility] | | | Trough | ug/mL for [...] | | | | | performed at [facility] | | | | | | [address];[place], [place] | | | | | | [address] | | | | + + + + + + + + | Specimen | + + | Blood | + + + + + + + | Performing | Address | City/State/Zipcode | Phone Number | | Organization | | | | + + + + + | [facility] | [address] | [place] [address] | [phone] | + + + + + Basic [...] | >60Comment: GFR <60: | >60 | [facility] | | | GFR | [...] | | | | | | MDRD [facility] traceable | | | | | | equation.Testing | | | | | | performed at [facility], [address] | | | | | | [facility], | | | | | | [place] [address] | | | | + + + + + + + + | Specimen | + + | Blood | + + + + + + + | Performing | Address | City/State/Zipcode | Phone Number | | Organization | | | | + + + + + | [facility] | [address] | [place] [address] | [phone] | + + + + + CBC [...] 0.04Comment: Testing | 0.00 - 0.10 | [facility] | | | Absolute | performed at [facility], [address] | K/uL | LABORATORY | | | | [address], | | | | | | [place] [address] | | | | + + + + + + + + | Specimen | + + | Blood | + + + + + + + | Performing | Address | City/State/Zipcode | Phone Number | | Organization | | | | + + + + + | [facility] | [address] | [place] [address] | [phone] | + + + + + Hepatitis [...] | | | | | performed by [facility], | | | | | | [address], | | | | | | [facility] [address] | | | | + + + + + + + + | Specimen | + + | | + + + + + + + | Performing | Address | City/State/Zipcode | Phone Number | | Organization | | | | + + + + + | [facility] | [address] | [place] [address] | [phone] | + + + + + HCV [...] HCV | (See Below)Comment: To | | [facility] | | | Genotype | be performed on this | | LABORATORY | | | | specimen.Testing | | | | | | performed by [facility], | | | | | | [address], | | | | | | [facility] [address] | | | | + + + + + + + + | Specimen | + + | Blood | + + + + + + + | Performing | Address | City/State/Zipcode | Phone Number | | Organization | | | | + + + + + | [facility] | [address] | [place] [address] | [phone] | + + + + + Magnesium (04/13/2019 6:07 AM PDT) + + + + + + | Component | Value | Ref Range | Performed | Pathologist | | | | | At | Signature | + + + + + + | Magnesium | 1.8Comment: Testing | 1.7 - 2.4 mg/dL | [facility] | | | | performed at [facility];[address] | | LABORATORY | | | | [facility];[place], [place] | | | | | | [address] | | | | + + + + + + + + | Specimen | + + | Blood | + + + + + + + | Performing | Address | City/State/Zipcode | Phone Number | | Organization | | | | + + + + + | [facility] | [address] | [place] [address] | [phone] | + + + + + Basic [...] | >60Comment: GFR <60: | >60 | [facility] | | | GFR | [...] | | | | | | MDRD [facility] traceable | | | | | | equation.Testing | | | | | | performed at [facility] | | | | | | [facility];[place], [place] | | | | | | [address] | | | | + + + + + + + + | Specimen | + + | Blood | + + + + + + + | Performing | Address | City/State/Zipcode | Phone Number | | Organization | | | | + + + + + | [facility] | [address] | [place] [address] | [phone] | + + + + + CBC [...] | | | Absolute | performed at [facility];[address] | [address]/u[address] | LABORATORY | | | | [address];[place] | | | | | | [address] | | | | + + + + + + + + | Specimen | + + | Blood | + + + + + + + | Performing | Address | City/State/Zipcode | Phone Number | | Organization | | | | + + + + + | [facility] | [address] | [place] [address] | [phone] | + + + + + CT [...] to the appropriate level and a 10 Nicaraguan multipurpose | | | drainage catheter was [...] to the appropriate level and a 10 Nicaraguan multipurpose | | drainage catheter was placed [...] LABORATORY | | | | Blvd;[place] [address] | | | | + + + [...] | [facility] | | | Result | [facility], [address] [place] [address] | | LABORATORY | | | | [place] | | | | | | [address] | | | | + + + [...] Comment: Testing | | | performed at [facility], | | | [address], | | | [place] [address] | +---+ + + + + + + | Performing | Address | City/State/Zipcode | Phone Number | | Organization | | | | + + + + + | [facility] | [address] | [place] [address] | [phone] | + + + + + Protime [...] | | | | | performed at [facility] | | | | | | [address];[place], [place] | | | | | | [address] | | | | + + + + + + + + | Specimen | + + | Blood | + + + + + + + | Performing | Address | City/State/Zipcode | Phone Number | | Organization | | | | + + + + + | [facility] | [address] | [place] [address] | [phone] | + + + + + PTT (04/12/2019 5:13 AM PDT) + + + + + + | Component | Value | Ref Range | Performed | Pathologist | | | | | At | Signature | + + + + + + | PTT | 33 (H)Comment: Testing | 23 - 32 seconds | ONEL | | | | performed at [facility];[address] | | LABORATORY | | | | [address];[place] | | | | | | [address] | | | | + + + + + + + + | Specimen | + + | Blood | + + + + + + + | Performing | Address | City/State/Zipcode | Phone Number | | Organization | | | | + + + + + | [facility] | [address] | [place] [address] | [phone] | + + + + + Magnesium (04/12/2019 5:13 AM PDT) + + + + + + | Component | Value | Ref Range | Performed | Pathologist | | | | | At | Signature | + + + + + + | Magnesium | 1.9Comment: Testing | 1.7 - 2.4 mg/dL | [facility] | | | | performed at [facility], [address] | | LABORATORY | | | | [address], | | | | | | [place] [address] | | | | + + + + + + + + | Specimen | + + | Blood | + + + + + + + | Performing | Address | City/State/Zipcode | Phone Number | | Organization | | | | + + + + + | [facility] | [address] | [place] [address] | [phone] | + + + + + CBC [...] [facility] | | | | performed at [facility], [address] | | LABORATORY | | | | [address], | | | | | | [place] [address] | | | | + + + + + + + + | Specimen | + + | Blood | + + + + + + + | Performing | Address | City/State/Zipcode | Phone Number | | Organization | | | | + + + + + | [facility] | [address] | [place] [address] | [phone] | + + + + + Basic [...] | 9.1 | 8.5 - 10.5 | [facility] | | | | | mg/dL | LABORATORY | | + + + + + + | Estimated | >60Comment: GFR <60: | >60 | [facility] | | | GFR | [...] | | | | | performed at [facility], [address] | | | | | | [facility], | | | | | | [place] [address] | | | | + + + + + + + + | Specimen | + + | Blood | + + + + + + + | Performing | Address | City/State/Zipcode | Phone Number | | Organization | | | | + + + + + | [facility] | [address] | [place] [address] | [phone] | + + + + + Culture, [...] RESULT | Testing performed at | | [facility] | | | | [facility], [address] [facility] | | LABORATORY | | | | [facility], [place], [place] | | | | | | [id number]: Testing | | | | | | performed at [facility], [address] | | | | | | [facility], | | | | | | [place] [address] | | | | + + + [...] | + + + + + | [facility] | [address] | [place] [address] | [phone] | + + + + + documented [...] | | | | PRN, Pain, Starting [facility] 05/03/19 | | AM PST | [...]
--- OUTSIDE RECORDS SUMMARY | ~2019-05-09 | XMS | Encounter Summary ---
Demographics + + + | Address | [address] | | | [place] [address] | + + + | Home Phone | | + + + | Preferred Language | Unknown | + + + | Marital Status | Single | + + + | Mormonism Affiliation | Unknown | + + + | Race | Unknown | + + + | Ethnic Group | Unknown | + + + Author + + + | Author | [facility] | | | and Андрейana | + + + | Organization | [facility] | | | and [...] Team Providers + +------+ + | Care Digital Technician Name | Role | Phone | + [...] + + | 04/19/ | Telephone | [facility] | Krysta Rodney, | Care Coordination | | 2019 | | INFECTIOUS DISEASE | Physical Therapist Aide | [facility] | | | | [address] | | | | | | [place], [place] | | | | | | [address] | | | | | | [phone] | | | +--------+ + + + [...]
--- OUTSIDE RECORDS SUMMARY | ~2019-05-09 | XMS | Encounter Summary ---
Demographics + + + | Address | [address] | | | [place] [address] | + + + | Home Phone | | + + + | Preferred Language | Unknown | + + + | Marital Status | Single | + + + | Gnosticist Affiliation | Unknown | + + + | Race | Unknown | + + + | Ethnic Group | Unknown | + + + Author + + + | Author | [facility] | | | and Андрейana | + + + | Organization | [facility] | | | and [place] [...] Team Providers + +------+ + | Care Therapeutic Mentor Name | Role | Phone | + +------+ + | No, Physician | PCP | Unavailable | + +------+ + Reason for Visit + + + | Reason | Comments | + + + | Information Only, No | questions | | Triage | | + + + Encounter Details +--------+ + + + + | Date | Type | Department | Care Team | Description | +--------+ + + + + | 04/23/ | Telephone | [facility] | Keri Mendes | Information Only, No | | 2019 | | [address] | Kun RN | Triage (questions) | | | | [place], [place] | | | | | | [address] | | | | | | [phone] | | | +--------+ + + + [...]
--- OUTSIDE RECORDS SUMMARY | ~2019-05-09 | XMS | Encounter Summary ---
Demographics + + + | Address | [address] | | | [place] [address] | + + + | Home Phone | | + + + | Preferred Language | Unknown | + + + | Marital Status | Single | + + + | Sabianism Affiliation | Unknown | + + + | Race | Unknown | + + + | Ethnic Group | Unknown | + + + Author + + + | Author | [facility] | | | and Андрейana | + + + | Organization | [facility] | | | and [...] Team Providers + +------+ + | Care Blood And Plasma Laboratory Assistant Name | Role | Phone | + [...] + + | 04/23/ | Telephone | [facility] | Keri Mendes | Information Only, No | | 2019 | | [address] | Kun RN | Triage (questions) | | | | [place], [place] | | | | | | [address] | | | | | | [phone] | | | +--------+ + + + [...]
--- OUTSIDE RECORDS SUMMARY | ~2019-05-09 | XMS | Encounter Summary ---
Demographics + + + | Address | [address] | | | [place] [address] | + + + | Home Phone | | + + + | Preferred Language | Unknown | + + + | Marital Status | Single | + + + | Rastafarian Affiliation | Unknown | + + + | Race | Unknown | + + + | Ethnic Group | Unknown | + + + Author + + + | Author | [facility] | | | and Андрейana | + + + | Organization | [facility] | | | and [place] [...] Team Providers + +------+ + | Care Insurance Loss Adjuster Name | Role | Phone | + +------+ + | No, Physician | PCP | Unavailable | + +------+ + Encounter Details +--------+ + + + + | Date | Type | Department | Care Team | Description | +--------+ + + + + | 04/12/ | Orders Only | [facility] | Bouchra Michael, | | | 2018 | | CENTER [facility] | TAMMY | | | | | [address] | | | | | | [place] | | | | | | [address] | | | | | | [phone] | | | +--------+ + + + [...]
--- OUTSIDE RECORDS SUMMARY | ~2019-05-09 | XMS | Encounter Summary ---
Demographics + + + | Address | [address] | | | [place] [address] | + + + | Home Phone | | + + + | Preferred Language | Unknown | + + + | Marital Status | Single | + + + | Latter-Day Affiliation | Unknown | + + + | Race | Unknown | + + + | Ethnic Group | Unknown | + + + Author + + + | Author | [facility] | | | and Андрейana | + + + | Organization | [facility] | | | and [place] | [...] Team Providers + +------+ + | Care Buckle Assembler Name | Role | Phone | + +------+ + | No, Physician | PCP | Unavailable | + +------+ + Encounter Details +--------+ + + + + | Date | Type | Department | Care Team | Description | +--------+ + + + + | 05/08/ | Documentati | [facility] | Annmarie Giang | | | 2019 | on | INFECTIOUS DISEASE | TAMMY Jimenez | | | | | [address] | | | | | | [place] | | | | | | [address] | | | | | | [phone] | | | +--------+ + + + [...] Contents DO Luis F Hand Infectious Disease Linotype Operator The patient is being discharged from the hospital on intravenous antibiotics. Please see re cent notes and orders in [employer] and contact patient to check in and [...]
--- OUTSIDE RECORDS SUMMARY | ~2019-05-09 | XMS | Encounter Summary ---
Demographics + + + | Address | [address] | | | [place] [address] | + + + | Home Phone | | + + + | Preferred Language | Unknown | + + + | Marital Status | Single | + + + | Denominational Affiliation | Unknown | + + + | Race | Unknown | + + + | Ethnic Group | Unknown | + + + Author + + + | Author | [facility] | | | and Андрейana | + + + | Organization | [facility] | | | and [place] [...] Team Providers + +------+ + | Care Roto Mixer Operator Name | Role | Phone | + [...] + + | 04/16/ | Telephone | [facility] | TerrellJuanDO | Care Coordination | | 2019 | | INFECTIOUS DISEASE | [address] | | | | | [address] | [place] [address] | | | | | [place], [place] | [phone] | | | | | [address] | | | | | | [phone] | | | +--------+ + + + [...]
--- OUTSIDE RECORDS SUMMARY | 2019-05-09 23:44 | XMS ---
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 Marci has no Care Guidelines for this patient. [facility] (12 MO.) [facility] NOTE: Visits indicate total known visits. ED/C VISIT TRACKING (12 MO.) [facility] COMPLAINT: - FEVER/PAIN 04/11/2019 15:[address] 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
== END 2019-05-10 03:39 | disposition home or self-care (01) ==
LOC: ED 23:42
DX: A49.02 Methicillin resistant Staphylococcus aureus infection, unspecified site (principal); F17.200 Nicotine dependence, unspecified, uncomplicated; Z91.14 Patient's other noncompliance with medication regimen; Z88.0 Allergy status to penicillin
CPT/HCPCS: 80053; 81001; 83605; 85025; 96361; 96365; 99284-25; J0696; J7030

== ENCOUNTER 2020-05-23 21:20 | Emergency (ER) | payer OTHER ==
[~2020-05-23] VITALS: Ht 188 cm; Wt 117.0 kg
--- OUTSIDE RECORDS SUMMARY | 2020-05-23 21:22 | XMS ---
PreManage Notification: ZINA OLIVARES Security Flight Surgeon Events No recent Security Events currently on file CRITERIA MET - Group Notification CARE PROVIDERS There are no care providers on record at this time. Marci has no Care Guidelines for this patient. Tena VISIT COUNT (12 MO.) 1 [facility] TOTAL 1 NOTE: Visits indicate total known visits. ED/UCC VISIT TRACKING (12 MO.) 05/23/2020 21:21 [facility] [place] TYPE: Emergency COMPLAINT: - ARM PAIN/ABSCESS INPATIENT VISIT TRACKING (12 MO.) No inpatient visits to display in this time frame [id number]
[2020-05-24] MEDS ORDERED: BACTRIM DS TAB1 EACH PO ×2 (00:09)
[2020-05-24] MEDS ORDERED: KEFLEX500 MG PO ×2 (00:09)
--- NOTE | 2020-05-24 17:02 | EKG ---
[facility] [address] [facility] [place] [address] Signed Normal sinus rhythm Possible Left atrial enlargement Borderline ECG No previous ECGs available Confirmed by MARLENE LOCK DO ([id number]) on 05/24/2020 5:02:22 PM Electronically Signed By: MARLENE LOCK DO 05/24/20 1702 PATIENT NAME: ZINA OLIVARES Electrocardiogram DATE OF : 81 PHYSICIAN: MARLENE LOCK DO REPORT #: [id number] REPORT IS CONFIDENTIAL AND NOT TO BE RELEASED WITHOUT AUTHORIZATION
[2020-05-24] MEDS ORDERED: HYDROXYZINE HCL25 MG PO (19:27)
== END 2020-05-24 00:55 | disposition home or self-care (01) ==
LOC: ED 21:20
DX: L02.414 Cutaneous abscess of left upper limb (principal); R07.9 Chest pain, unspecified; R94.5 Abnormal results of liver function studies; R79.89 Other specified abnormal findings of blood chemistry; F17.200 Nicotine dependence, unspecified, uncomplicated; Z88.0 Allergy status to penicillin
CPT/HCPCS: 71045; 80053; 84484; 85025; 93005; 93010; 96365; 96375; 99285-25; J0696; J1200; J1630; J7030

== ENCOUNTER 2020-05-24 16:10 | Emergency (ER) | payer OTHER ==
[~2020-05-24] VITALS: Ht 188 cm; Wt 116.6 kg
[~2020-05-24 16:10] MED LIST: BACTRIM DS TAB1 EACH PO; KEFLEX500 MG PO
--- OUTSIDE RECORDS SUMMARY | 2020-05-24 16:12 | XMS ---
PreManage Notification: ZINA OLIVARES Security Manager Critical Care Unit Events No recent Security Events currently on file CRITERIA MET - Group Notification - [facility] - 2 Visits in 30 Days CARE PROVIDERS There are no care providers on record at this time. Marci has no Care Guidelines for this patient. [facility] (12 MO.) [facility] NOTE: Visits indicate total known visits. ED/C VISIT TRACKING (12 MO.) [facility] COMPLAINT: - SOB, CHEST PAIN 05/23/2020 21:21 [facility] [place] TYPE: Emergency COMPLAINT: - ARM PAIN/ABSCESS INPATIENT VISIT TRACKING (12 MO.) No inpatient visits to display in this time frame [id number]
--- NOTE | 2020-05-24 17:10 | EKG ---
[facility] [address] [facility] [place], [place] [address] Signed Sinus tachycardia Otherwise normal ECG When compared with ECG of 23-MAY-2020 21:38, (Unconfirmed) No significant change was found Confirmed by MARLENE LOCK DO ([id number]) on 05/24/2020 5:10:26 PM Electronically Signed By: MARLENE LOCK DO 05/24/20 1710 PATIENT NAME: ZINA OLIVARES Electrocardiogram DATE OF : 81 PHYSICIAN: MARLENE LOCK DO REPORT #: [id number] REPORT IS CONFIDENTIAL AND NOT TO BE RELEASED WITHOUT AUTHORIZATION
[2020-05-24] MEDS ORDERED: HYDROXYZINE HCL25 MG PO (19:27)
== END 2020-05-24 19:35 | disposition home or self-care (01) ==
LOC: ED 16:10
DX: R07.9 Chest pain, unspecified (principal); L03.114 Cellulitis of left upper limb; F19.10 Other psychoactive substance abuse, uncomplicated; F17.200 Nicotine dependence, unspecified, uncomplicated; Z88.0 Allergy status to penicillin
CPT/HCPCS: 84484; 85379; 96374; 96375; 99285-25; J1885; J2060

== ENCOUNTER 2020-06-25 13:28 | Emergency (ER) | payer OTHER ==
[~2020-06-25] VITALS: Ht 188 cm; Wt 116.6 kg
[~2020-06-25 13:28] MED LIST changes: +HYDROXYZINE HCL25 MG PO
--- OUTSIDE RECORDS SUMMARY | 2020-06-25 13:30 | XMS ---
PreManage Notification: ZINA OLIVARES Security Burr Sander Events No recent Security Events currently on file CRITERIA MET - Group Notification CARE PROVIDERS There are no care providers on record at this time. Marci has no Care Guidelines for this patient. Tena VISIT COUNT (12 MO.) 3 [facility]ECT[facility] Tinsley TOTAL 3 NOTE: Visits indicate total known visits. ED/C VISIT TRACKING (12 MO.) 06/25/2020 13:28 [facility] [place] TYPE: Emergency COMPLAINT: - FLANK PAIN 05/24/2020 16:11 [facility] [place] TYPE: Emergency COMPLAINT: - SOB, CHEST PAIN DIAGNOSES: - Nicotine dependence, unspecified, uncomplicated - Allergy status to penicillin - Cellulitis of left upper limb - Chest pain, unspecified - Other psychoactive substance abuse, uncomplicated 05/23/2020 21:21 [facility] [place] TYPE: Emergency COMPLAINT: - ARM PAIN/ABSCESS DIAGNOSES: - Other specified abnormal findings of blood chemistry - Nicotine dependence, unspecified, uncomplicated - Cutaneous abscess of left upper limb - Allergy status to penicillin - Abnormal results of liver function studies - Chest pain, unspecified INPATIENT VISIT TRACKING (12 MO.) No inpatient visits to display in this time frame [id number]
== END 2020-06-25 19:48 | disposition home or self-care (01) ==
LOC: ED 13:28
DX: R10.9 Unspecified abdominal pain (principal); F17.200 Nicotine dependence, unspecified, uncomplicated; Z88.0 Allergy status to penicillin
CPT/HCPCS: 74176; 76870; 80053; 81001; 83690; 85025; 96374; 96375; 99284-25; J1885; J2405

== ENCOUNTER 2020-07-03 16:48 | Emergency (ER) | payer OTHER ==
[~2020-07-03] VITALS: Ht 188 cm; Wt 116.6 kg
--- OUTSIDE RECORDS SUMMARY | 2020-07-03 16:52 | XMS ---
PreManage Notification: ZINA OLIVARES Security High Frequency Mill Operator Events No recent Security Events currently on file CRITERIA MET - [facility] - 2 Visits in 30 Days CARE PROVIDERS SADIA HUERTA Emergency Medicine 06/26/2020-Current PHONE: [phone] Marci has no Care Guidelines for this patient. Care History Medical/Surgical 06/26/2020 [facility] - Patient is currently established with [facility]. If patient is seen in the ED during business hours. Please contact CHWs at [facility]. Care Recommendation: If this patient has had 5 or more Emergency Department visits in the last 12 months.\T\nbsp; Patient will require education on the scope and purpose of the ED as an acute care provider not a Primary Care Provider and should not be utilized for chronic conditions.\T\nbsp; These are guidelines and the provider should exercise clinical judgment when providing care. E.D. VISIT COUNT (12 MO.) 4 [facility] TOTAL 4 NOTE: Visits indicate total known visits. ED/UCC VISIT TRACKING (12 MO.) 07/03/2020 16:[address] [facility] [place] TYPE: Emergency COMPLAINT: - ANXIETY 06/25/2020 13:[address] [facility] [address] [facility] [place] TYPE: Emergency COMPLAINT: - FLANK PAIN DIAGNOSES: - Unspecified abdominal pain - Allergy status to penicillin - Nicotine dependence, unspecified, uncomplicated 05/24/2020 16:11 [facility] [place] TYPE: Emergency [...] visits to display in this time frame [id number]
[2020-07-03] MEDS ORDERED: HYDROXYZINE HCL25 MG PO (19:45)
--- NOTE | 2020-07-04 22:15 | EKG ---
[facility] [address] [facility] [facility] [place] [address] Signed Sinus tachycardia Rightward axis Possible Inferior infarct , age undetermined Abnormal ECG When compared with ECG of 24-MAY-2020 16:13, Borderline criteria for Inferior infarct are now present Confirmed by OLIVER CAO MD ([id number]) on 07/04/2020 10:15:11 PM Electronically Signed By: OLIVER CAO MD 07/04/20 2215 PATIENT NAME: ZINA OLIVARES Electrocardiogram DATE OF : 81 PHYSICIAN: OLIVER CAO MD REPORT #: [id number] REPORT IS CONFIDENTIAL AND NOT TO BE RELEASED WITHOUT AUTHORIZATION
== END 2020-07-03 19:59 | disposition home or self-care (01) ==
LOC: ED 16:48
DX: F41.9 Anxiety disorder, unspecified (principal); F15.10 Other stimulant abuse, uncomplicated; F17.200 Nicotine dependence, unspecified, uncomplicated; Z88.0 Allergy status to penicillin
CPT/HCPCS: 71045; 80053; 83735; 84484; 85025; 93005; 93010; 99284-25

== ENCOUNTER 2020-07-05 22:17 | Emergency (ER) | payer OTHER ==
[~2020-07-05] VITALS: Ht 188 cm; Wt 116.6 kg
--- OUTSIDE RECORDS SUMMARY | 2020-07-05 22:20 | XMS ---
PreManage Notification: ZINA OLIVARES Security Statistics Teacher Events No recent Security Events currently on file CRITERIA MET - [facility] - 2 Visits in 30 Days CARE PROVIDERS SADIA HUERTA Emergency Medicine 06/26/2020-Current PHONE: [phone] Marci has no Care Guidelines for this patient. Care History Medical/Surgical 06/26/2020 [facility] - Patient is currently established with [facility]. If patient is seen in the ED during business hours. Please contact CHWs at [facility]. Care Recommendation: If this patient has had [...] providing care. E.D. VISIT COUNT (12 MO[address] 5 [facility] TOTAL 5 NOTE: Visits indicate total known visits. ED/UCC VISIT TRACKING (12 MO.) 07/05/2020 22:18 [facility] [place] TYPE: Emergency COMPLAINT: - FLANK PLAIN 07/03/2020 16:49 [facility] [place] TYPE: Emergency COMPLAINT: - ANXIETY 06/25/2020 13:28 [facility] [place] TYPE: Emergency [...] visits to display in this time frame [id number]
== END 2020-07-06 01:03 | disposition home or self-care (01) ==
LOC: ED 22:17
DX: R10.9 Unspecified abdominal pain (principal); F15.90 Other stimulant use, unspecified, uncomplicated; F17.200 Nicotine dependence, unspecified, uncomplicated; Z88.0 Allergy status to penicillin
CPT/HCPCS: 74176; 81001; 96372; 99284-25; J1885

== ENCOUNTER 2020-07-10 04:42 | Emergency (ER) | payer OTHER ==
[~2020-07-10] VITALS: Ht 188 cm; Wt 113.4 kg
--- OUTSIDE RECORDS SUMMARY | 2020-07-10 04:44 | XMS ---
PreManage Notification: ZINA OLIVARES Security Associate Buyer Events No recent Security Events currently on file CRITERIA MET - 6 ED Visits in 6 Months - [facility] - 2 Visits in 30 Days CARE PROVIDERS SADIA HUERTA Emergency Medicine 06/26/2020-Current PHONE: [phone] Marci has no Care Guidelines for this patient. Care History Medical/Surgical 07/07/2020 [facility] - PATIENT HAS AN APT ON 07/08/20 TO ESTABLISH CARE WITH SADIA HUERTA. 06/26/2020 [facility] - Patient is currently established with [facility]. If patient is seen in the ED during business hours. Please contact CHWs at [facility]. Care Recommendation: If this patient has [...] providing care. E.D. VISIT COUNT (12 MO.) 6 [facility] TOTAL 6 NOTE: Visits indicate total known visits. ED/UCC VISIT TRACKING (12 MO.) 07/10/2020 04:42 [facility] [place] TYPE: Emergency COMPLAINT: - SOB 07/05/2020 22:18 [facility] [place] TYPE: Emergency COMPLAINT: - FLANK PLAIN DIAGNOSES: - Unspecified abdominal pain - Allergy status to penicillin - Nicotine dependence, unspecified, uncomplicated - Other stimulant use, unspecified, uncomplicated 07/03/2020 16:49 [facility] [place] TYPE: Emergency COMPLAINT: - ANXIETY DIAGNOSES: - Allergy status to penicillin - Anxiety disorder, unspecified - Nicotine dependence, unspecified, uncomplicated - Other stimulant abuse, uncomplicated 06/25/2020 13:28 [facility] [place] TYPE: Emergency [...] visits to display in this time frame [id number]
[2020-07-10] MEDS ORDERED: HYDROXYZINE HCL25 MG PO (04:54)
--- NOTE | 2020-07-10 17:46 | EKG ---
[facility] [address] [place] [address] Signed Normal sinus rhythm Normal ECG When compared with ECG of 03-JUL-2020 16:57, Borderline criteria for Inferior infarct are no longer present Confirmed by MARLENE LOCK DO ([id number]) on 07/10/2020 5:46:09 PM Electronically Signed By: MARLENE LOCK DO 07/10/20 1746 PATIENT NAME: ZINA OLIVARES Electrocardiogram DATE OF : [birth year] PHYSICIAN: MARLENE LOCK DO REPORT #: [id number] REPORT IS CONFIDENTIAL AND NOT TO BE RELEASED WITHOUT AUTHORIZATION
[2020-07-11] MEDS ORDERED: SULFAMETHOXAZO1 EAC1 PO (22:08)
[2020-07-11] MEDS ORDERED: NAPROXEN375 MG PO (22:09)
[2020-07-11] MEDS ORDERED: ZOFRAN4 MG PO (22:20)
== END 2020-07-10 05:41 | disposition home or self-care (01) ==
LOC: ED 04:42
DX: R06.02 Shortness of breath (principal); Z20.822 Contact with and (suspected) exposure to COVID-19; F17.200 Nicotine dependence, unspecified, uncomplicated; Z88.0 Allergy status to penicillin
CPT/HCPCS: 93005; 93010; 99285-25; C9803; U0003

== ENCOUNTER 2020-07-11 21:55 | Emergency (ER) | payer OTHER ==
[~2020-07-11] VITALS: Ht 188 cm; Wt 113.4 kg
--- OUTSIDE RECORDS SUMMARY | 2020-07-11 21:58 | XMS ---
PreManage Notification: ZINA OLIVARES Security Training Program Assistant Events No recent Security Events currently on file CRITERIA MET - 6 ED Visits in 6 Months - [facility] - 2 Visits in 30 Days CARE PROVIDERS SADIA HUERTA Emergency Medicine 06/26/2020-Current PHONE: [phone] Marci has no Care Guidelines for this patient. Care History Medical/Surgical 07/07/2020 [facility] - PATIENT HAS AN APT ON 07/08/20 TO ESTABLISH CARE WITH SADIA HUERTA. 06/26/2020 [facility] - Patient is currently established with [facility]. If patient is seen in the ED during business hours. Please contact CHWs at [facility]. Care Recommendation: If this patient [...] providing care. E.D. VISIT COUNT (12 MO.) [address] [facility] TOTAL 7 NOTE: Visits indicate total known visits. ED/UCC VISIT TRACKING (12 MO.) 07/11/2020 21:56 [facility] [place] TYPE: Emergency COMPLAINT: - POSSIBLE ABCESS 07/10/2020 04:42 [facility] [place] TYPE: Emergency [...] - Other stimulant abuse, uncomplicated 06/25/2020 13:28 [facility] [place] TYPE: Emergency COMPLAINT: - FLANK PAIN DIAGNOSES: - Unspecified abdominal pain - Allergy status to penicillin - Nicotine dependence, unspecified, uncomplicated 05/24/2020 16:11 [facility] [place] TYPE: Emergency COMPLAINT: - SOB, CHEST PAIN DIAGNOSES: - Nicotine dependence, unspecified, uncomplicated - Allergy status to penicillin - Cellulitis of left upper limb - Chest pain, unspecified - Other psychoactive substance abuse, uncomplicated 05/23/2020 21:[address] [facility] [place] TYPE: Emergency COMPLAINT: - ARM PAIN/ABSCESS DIAGNOSES: - Other specified abnormal findings of blood chemistry - Nicotine dependence, unspecified, uncomplicated - Cutaneous abscess of left upper limb - Allergy status to penicillin - Abnormal results of liver function studies - Chest pain, unspecified INPATIENT VISIT TRACKING (12 MO.) No inpatient visits to display in this time frame [id number]
[2020-07-11] MEDS ORDERED: SULFAMETHOXAZO1 EAC1 PO (22:08)
[2020-07-11] MEDS ORDERED: NAPROXEN375 MG PO (22:09)
[2020-07-11] MEDS ORDERED: ZOFRAN4 MG PO (22:20)
== END 2020-07-11 22:32 | disposition home or self-care (01) ==
LOC: ED 21:55
DX: L03.317 Cellulitis of buttock (principal); F17.200 Nicotine dependence, unspecified, uncomplicated; Z88.0 Allergy status to penicillin; Z79.899 Other long term (current) drug therapy
CPT/HCPCS: 10060; 99283-25

== ENCOUNTER 2020-08-05 05:47 | Emergency (ER) | payer OTHER ==
[~2020-08-05] VITALS: Ht 188 cm; Wt 113.4 kg
[~2020-08-05 05:47] MED LIST changes: +NAPROXEN375 MG PO; +SULFAMETHOXAZO1 EAC1 PO; +ZOFRAN4 MG PO
--- OUTSIDE RECORDS SUMMARY | 2020-08-05 05:50 | XMS ---
PreManage Notification: ZINA OLIVARES Security Inspector Balance Bridge Events No recent Security Events currently on file CRITERIA MET - 6 ED Visits in 6 Months - [facility] - 2 Visits in 30 Days CARE PROVIDERS SADIA HUERTA Emergency Medicine 06/26/2020-Current PHONE: [phone] Marci has no Care Guidelines for this patient. Care History Medical/Surgical 07/07/2020 [facility] - PATIENT HAS AN APT ON 07/08/20 TO ESTABLISH CARE WITH SADIA HUERTA. 06/26/2020 [facility] - Patient is currently established with [facility]. If patient is seen in the ED during business hours. Please contact CHWs at [facility]. Care Recommendation: If this patient has [...] providing care. E.D. VISIT COUNT (12 MO.) 8 [facility] TOTAL [facility] NOTE: Visits indicate total known visits. ED/UCC VISIT TRACKING (12 MO.) 08/05/2020 05:48 [facility] [place] TYPE: Emergency COMPLAINT: - CHEST PAIN,SOB 07/11/2020 21:56 [facility] [place] TYPE: Emergency COMPLAINT: - POSSIBLE ABSCESS DIAGNOSES: - Other alf (current) drug therapy - Nicotine dependence, unspecified, uncomplicated - Allergy status to penicillin - Cellulitis of buttock 07/10/2020 04:42 [facility] [place] TYPE: Emergency COMPLAINT: - SOB DIAGNOSES: - Allergy status to penicillin - Shortness of breath - Nicotine dependence, unspecified, uncomplicated 07/05/2020 22:18 [facility] [place] TYPE: Emergency [...] visits to display in this time frame [id number]
--- NOTE | 2020-08-05 16:58 | EKG ---
[facility] [address] [place] [address] Signed Normal sinus rhythm Normal ECG When compared with ECG of 10-JUL-2020 04:51, No significant change was found Confirmed by OLIVER CAO MD ([id number]) on 08/05/2020 4:58:01 PM Electronically Signed By: OLIVER CAO MD 08/05/20 1658 PATIENT NAME: ZINA OLIVARES Electrocardiogram DATE OF : [birth year] PHYSICIAN: OLIVER CAO MD REPORT #: [id number] REPORT IS CONFIDENTIAL AND NOT TO BE RELEASED WITHOUT AUTHORIZATION
== END 2020-08-05 07:04 | disposition home or self-care (01) ==
LOC: ED 05:47
DX: F41.9 Anxiety disorder, unspecified (principal); F15.90 Other stimulant use, unspecified, uncomplicated; F17.200 Nicotine dependence, unspecified, uncomplicated; Z88.0 Allergy status to penicillin; Z79.899 Other long term (current) drug therapy
CPT/HCPCS: 71045; 81001; 93005; 93010; 99285-25

== ENCOUNTER 2020-08-14 02:07 | Emergency (ER) | payer OTHER ==
[~2020-08-14] VITALS: Ht 188 cm; Wt 113.8 kg
--- OUTSIDE RECORDS SUMMARY | 2020-08-14 02:10 | XMS ---
PreManage Notification: ZINA OLIVARES Security Obstetrics Nurse Events No recent Security Events currently on file CRITERIA MET - Group Notification - 6 ED Visits in 6 Months - [facility] - Has Care Guidelines - [facility] - 2 Visits in 30 Days CARE PROVIDERS SADIA HUERTA Emergency Medicine 06/26/2020-Current PHONE: [phone] Marci has no Care Guidelines for this patient. Care History Medical/Surgical 08/06/2020 [facility] Patient is aware of Walk In Clinic, but stated he will use ED when Clinic is not available.\T\nbsp; He has been advised by Health Advocate Bita King of mental health/addiction help.\T\nbsp; Patient understood, agreed to have her mail brochure to think about options. 07/07/2020 [facility] - PATIENT HAS AN APT ON 07/08/20 TO ESTABLISH CARE WITH SADIA HUERTA. 06/26/2020 [facility] - Patient is currently established with [facility]. If patient is seen in the ED during business hours. Please contact CHWs at [facility]. Care Recommendation: If this patient has had 5 or more Emergency Department visits in the last 12 months.\T\nbsp; Patient will require education on the scope and purpose of the ED as an acute care provider not a Primary Care Provider and should not be utilized for chronic conditions.\T\nbsp; These are guidelines and the provider should exercise clinical judgment when providing care. Tena VISIT COUNT (12 MO.) 9 [facility] TOTAL 9 NOTE: Visits indicate total known visits. ED/UCC VISIT TRACKING (12 MO.) 08/14/2020 02:07 [facility] [place] TYPE: Emergency COMPLAINT: - SOB,TESTICULAR PAIN 08/05/2020 05:48 [facility] [place] [employer] [facility] [place] TYPE: Emergency COMPLAINT: - CHEST PAIN,SOB DIAGNOSES: - Allergy status to penicillin - Other moth exterminator (current) drug therapy - Precordial pain - Nicotine dependence, unspecified, uncomplicated - Anxiety disorder, unspecified - Other stimulant use, unspecified, uncomplicated 07/11/2020 21:56 [facility] [employer] [facility] [place] TYPE: Emergency COMPLAINT: - POSSIBLE ABSCESS DIAGNOSES: - Other moth exterminator (current) drug therapy - Nicotine dependence, unspecified, uncomplicated - Allergy status to penicillin - Cellulitis of buttock 07/10/2020 04:42 [facility] [employer] [facility] [place] TYPE: Emergency COMPLAINT: - SOB DIAGNOSES: - Allergy status to penicillin - Shortness of breath - Nicotine dependence, unspecified, uncomplicated 07/05/2020 22:18 [facility] [employer] [employer] TYPE: Emergency COMPLAINT: - FLANK PLAIN [...] visits to display in this time frame [id number]
--- NOTE | 2020-08-14 07:39 | EKG ---
[facility] [address] [place], [place] [address] Signed Sinus tachycardia Otherwise normal ECG When compared with ECG of 05-AUG-2020 05:53, No significant change was found Confirmed by DARIÁN MARIN MD ([id number]) on 08/14/2020 7:39:07 AM Electronically Signed By: ADRIÁN MARIN MD 08/14/20 0739 PATIENT NAME: ZINA OLIVARES Electrocardiogram DATE OF : [birth year] PHYSICIAN: ADRIÁN MARIN MD REPORT #: [id number] REPORT IS CONFIDENTIAL AND NOT TO BE RELEASED WITHOUT AUTHORIZATION
== END 2020-08-14 03:55 | disposition left against medical advice (07) ==
LOC: ED 02:07
DX: F15.90 Other stimulant use, unspecified, uncomplicated (principal); F17.200 Nicotine dependence, unspecified, uncomplicated; Z88.0 Allergy status to penicillin; Z79.899 Other long term (current) drug therapy
CPT/HCPCS: 51798; 93005; 93010; 96372; 99284-25; C9803; J1885

== ENCOUNTER 2020-08-14 05:10 | Emergency (ER) | payer OTHER ==
[~2020-08-14] VITALS: Ht 188 cm; Wt 113.8 kg
--- OUTSIDE RECORDS SUMMARY | 2020-08-14 05:12 | XMS ---
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 Care History Medical/Surgical 08/06/2020 [facility] Patient is aware of Walk In [facility], but stated he will use ED when Clinic is not available.\T\nbsp; He has been advised by Health Advocate Bita King of mental health/addiction help.\T\nbsp; Patient understood, agreed to have her mail brochure to think about options. 07/07/2020 [facility] - PATIENT HAS AN APT ON 07/08/20 TO ESTABLISH CARE WITH SADIA HUERTA. 06/26/2020 [facility] - Patient is currently established with [facility]. If patient is seen in the ED during business hours. Please contact CHWs at [facility]. Care Recommendation: If this patient has [...] providing care. Tena VISIT COUNT (12 MO.) 10 [facility] TOTAL 10 NOTE: Visits indicate total known visits. ED/UCC VISIT TRACKING (12 MO.) 08/14/2020 05:10 [facility] [place] TYPE: Emergency COMPLAINT: - CHEST PAIN 08/14/2020 02:07 [facility] [place] [facility] [place] TYPE: Emergency COMPLAINT: - SOB,TESTICULAR PAIN 08/05/2020 05:48 [facility] [place] [facility] [place] TYPE: Emergency COMPLAINT: - CHEST PAIN,SOB DIAGNOSES: - Allergy status to penicillin - Other chcf (current) drug therapy - Precordial pain - Nicotine dependence, unspecified, uncomplicated - Anxiety disorder, unspecified - Other stimulant use, unspecified, uncomplicated 07/11/2020 21:56 [facility] [place] TYPE: Emergency COMPLAINT: - POSSIBLE ABSCESS DIAGNOSES: - Other chcf (current) drug therapy - Nicotine dependence, unspecified, [...] visits to display in this time frame [id number]
== END 2020-08-14 06:36 | disposition home or self-care (01) ==
LOC: ED 05:10
DX: R07.89 Other chest pain (principal); F15.10 Other stimulant abuse, uncomplicated; F17.200 Nicotine dependence, unspecified, uncomplicated; Z88.0 Allergy status to penicillin
CPT/HCPCS: 71045; 80053; 84484; 85025; 99285-25

== ENCOUNTER 2020-08-17 16:28 | Emergency (ER) | payer OTHER ==
[~2020-08-17] VITALS: Ht 188 cm; Wt 113.8 kg
--- OUTSIDE RECORDS SUMMARY | 2020-08-17 16:32 | XMS ---
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 Care History Medical/Surgical 08/06/2020 [facility] Patient is aware of Walk In Clinic, but stated he will use ED when Clinic is not available.\T\nbsp; He has been advised by Health Advocate Bita King of mental health/addiction help.\T\nbsp; Patient understood, agreed to have her mail brochure to think about options. 07/07/2020 [facility] - PATIENT HAS AN APT ON 07/08/20 TO ESTABLISH CARE WITH SADIA UHERTA. 06/26/2020 [facility] - Patient is currently established with [facility]. If patient is seen in the ED during business hours. Please contact CHWs at [facility]. Care Recommendation: If this patient [...] providing care. Tena VISIT COUNT (12 MO.) 11 [facility] TOTAL 11 NOTE: Visits indicate total known visits. ED/UCC VISIT TRACKING (12 MO.) 08/17/2020 16:29 [facility] [place] TYPE: Emergency COMPLAINT: - MULTIPLE COMPLAINTS 08/14/2020 05:[address] [facility] [address] [facility] [place] TYPE: Emergency COMPLAINT: - CHEST PAIN 08/14/2020 02:[address] [facility] [address] [facility] [place] TYPE: Emergency COMPLAINT: - SOB,TESTICULAR PAIN 08/05/2020 05:48 [facility] [place] [facility] [place] TYPE: Emergency COMPLAINT: - CHEST PAIN,SOB DIAGNOSES: - Allergy status to penicillin - Other fdc (current) drug therapy - Precordial pain - Nicotine dependence, unspecified, uncomplicated - Anxiety disorder, unspecified - Other stimulant use, unspecified, uncomplicated 07/11/2020 21:56 [facility] [place] [facility] [place] TYPE: Emergency COMPLAINT: - POSSIBLE ABSCESS DIAGNOSES: - Other parts counterman (current) drug therapy - Nicotine dependence, unspecified, [...] visits to display in this time frame [id number]
--- NOTE | 2020-08-19 21:59 | EKG ---
[facility] [address] [facility] [facility] [place], [place] [address] Signed Sinus tachycardia Otherwise normal ECG When compared with ECG of 14-AUG-2020 03:46, No significant change was found Confirmed by OLIVER CAO MD ([id number]) on 08/19/2020 9:59:25 PM Electronically Signed By: OLIVER CAO MD 08/19/20 2159 PATIENT NAME: ZINA OLIVARES Electrocardiogram DATE OF : [birth year] PHYSICIAN: OLIVER CAO MD REPORT #: [id number] REPORT IS CONFIDENTIAL AND NOT TO BE RELEASED WITHOUT AUTHORIZATION
== END 2020-08-17 18:35 | disposition home or self-care (01) ==
LOC: ED 16:28
DX: M79.652 Pain in left thigh (principal); F17.200 Nicotine dependence, unspecified, uncomplicated; Z88.0 Allergy status to penicillin
CPT/HCPCS: 80048; 85025; 93005; 93010; 93971; 96372; 99284-25; J1885

== ENCOUNTER 2020-08-20 14:08 | Emergency (ER) | payer OTHER ==
[~2020-08-20] VITALS: Ht 188 cm; Wt 113.8 kg
--- OUTSIDE RECORDS SUMMARY | 2020-08-20 14:10 | XMS ---
PreManage Notification: ZINA OLIVARES Security Record Retrieval Specialist Events No recent Security Events currently on file CRITERIA MET - Group Notification - 6 ED Visits in 6 Months - [facility] - Has Care Guidelines - [facility] - 2 Visits in 30 Days CARE PROVIDERS SADIA HUERTA Emergency Medicine 06/26/2020-Current PHONE: [phone] Marci has no Care Guidelines for this patient. Care History Medical/Surgical 08/06/2020 [facility] Patient is aware of Walk In Clinic, but stated he will use ED when Clinic is not available.\T\nbsp; He has been advised by Health Advocate Bita King of mental health/addiction help.\T\nbsp; Patient understood, agreed to have her mail brochure to think about options. 07/07/2020 [facility] - PATIENT HAS AN APT ON 07/08/20 TO ESTABLISH CARE WITH SADIA HUERTA. 06/26/2020 [facility] - Patient is currently established with [facility]. If patient is seen in the ED during business hours. Please contact CHWs at [facility]. Care Recommendation: If this patient has [...] providing care. Tena VISIT COUNT (12 MO.) [facility] TOTAL 12 NOTE: Visits indicate total known visits. ED/UCC VISIT TRACKING (12 MO.) 08/20/2020 14:09 [facility] [place] TYPE: Emergency COMPLAINT: - CHEST/ABD PAIN 08/17/2020 16:29 [facility] [place] [facility] [place] TYPE: Emergency COMPLAINT: - MULTIPLE COMPLAINTS DIAGNOSES: - Pain in left thigh - Allergy status to penicillin - Nicotine dependence, unspecified, uncomplicated 08/14/2020 05:10 [facility] [place] TYPE: Emergency COMPLAINT: - CHEST PAIN DIAGNOSES: - Other chest pain - Nicotine dependence, unspecified, uncomplicated - Other stimulant abuse, uncomplicated - Allergy status to penicillin - Chest pain, unspecified 08/14/2020 02:07 [facility] [place] TYPE: Emergency COMPLAINT: - DRUG USE DIAGNOSES: - Other termite treater helper (current) drug therapy - Other stimulant use, unspecified, uncomplicated - Nicotine dependence, unspecified, uncomplicated - Allergy status to penicillin 08/05/2020 05:48 [facility] [place] TYPE: Emergency COMPLAINT: - CHEST PAIN,SOB DIAGNOSES: - Allergy status to penicillin - Other retirement (current) drug therapy - Precordial pain - Nicotine dependence, unspecified, uncomplicated - Anxiety disorder, unspecified - Other stimulant use, unspecified, uncomplicated 07/11/2020 21:56 [facility] [place] TYPE: Emergency COMPLAINT: - POSSIBLE ABSCESS DIAGNOSES: - Other termite treater helper (current) drug therapy - Nicotine dependence, unspecified, [...] Other stimulant use, unspecified, uncomplicated 07/03/2020 16:49 [facility] [place] [facility] [place] TYPE: Emergency COMPLAINT: - ANXIETY DIAGNOSES: - Allergy status to penicillin - Anxiety disorder, unspecified - Nicotine dependence, unspecified, uncomplicated - Other stimulant abuse, uncomplicated 06/25/2020 13:28 [facility] [place] TYPE: Emergency COMPLAINT: - FLANK PAIN DIAGNOSES: - Unspecified abdominal pain - Allergy status to penicillin - Nicotine dependence, unspecified, uncomplicated 05/24/2020 16:11 [facility] [place] TYPE: Emergency COMPLAINT: - SOB, CHEST PAIN DIAGNOSES: - Nicotine dependence, unspecified, uncomplicated - Allergy status to penicillin - Cellulitis of left upper limb - Chest pain, unspecified - Other psychoactive substance abuse, uncomplicated 05/23/2020 21:21 [facility] [place] TYPE: Emergency COMPLAINT: - ARM PAIN/ABSCESS DIAGNOSES: - Other specified abnormal findings of blood chemistry - Nicotine dependence, unspecified, uncomplicated - Cutaneous abscess of left upper limb - Allergy status to penicillin - Abnormal results of liver function studies - Chest pain, unspecified INPATIENT VISIT TRACKING (12 MO.) No inpatient visits to display in this time frame [id number]
[2020-08-20] MEDS ORDERED: PERMETHRIN60 GM TOP (14:21)
--- NOTE | 2020-08-21 13:30 | EKG ---
[facility] [address] [place] [address] Signed Sinus tachycardia Otherwise normal ECG No previous ECGs available Confirmed by OLIVER CAO MD ([id number]) on 08/21/2020 1:30:21 PM Electronically Signed By: OLIVER CAO MD 08/21/20 1330 PATIENT NAME: ZINA OLIVARES Electrocardiogram DATE OF : 81 PHYSICIAN: OLIVER CAO MD REPORT #: [id number] REPORT IS CONFIDENTIAL AND NOT TO BE RELEASED WITHOUT AUTHORIZATION
== END 2020-08-20 16:54 | disposition home or self-care (01) ==
LOC: ED 14:08
DX: R07.9 Chest pain, unspecified (principal); F15.129 Other stimulant abuse with intoxication, unspecified; F17.200 Nicotine dependence, unspecified, uncomplicated; Z88.0 Allergy status to penicillin; Z79.899 Other long term (current) drug therapy
CPT/HCPCS: 36415; 71045; 80053; 84484; 85025; 93005; 93010; 96374; 99285-25; J2060; J7030

== ENCOUNTER 2020-08-21 03:56 | Emergency (ER) | payer OTHER ==
[~2020-08-21 03:56] MED LIST changes: +PERMETHRIN60 GM TOP
--- OUTSIDE RECORDS SUMMARY | 2020-08-21 05:16 | XMS ---
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 - Has Care Guidelines - [facility] - 2 Visits in 30 Days CARE PROVIDERS SADIA HUERTA Emergency Medicine 06/26/2020-Current PHONE: [phone] Marci has no Care Guidelines for this patient. Care History Medical/Surgical 08/06/2020 [facility] Patient is aware of Walk In Clinic, but stated he will use ED when Clinic is not available.\T\nbsp; He has been advised by Health Advocate Bita King of mental health/addiction help.\T\nbsp; Patient understood, agreed to have her mail brochure to think about options. 07/07/2020 [facility] - PATIENT HAS AN APT ON 07/08/20 TO ESTABLISH CARE WITH SADIA HUERTA. 06/26/2020 [facility] - Patient is currently established with [facility]. If patient is seen in the ED during business hours. Please contact CHWs at [facility]. Care Recommendation: If this patient [...] providing care. Tena VISIT COUNT (12 MO.) 13 [facility] TOTAL 13 NOTE: Visits indicate total known visits. ED/UCC VISIT TRACKING (12 MO.) 08/21/2020 03:56 [facility] [place] TYPE: Emergency COMPLAINT: - PARASITES 08/20/2020 14:[address] [facility] [address] [facility] [place] TYPE: Emergency COMPLAINT: - CHEST/ABD PAIN 08/17/2020 16:[address] [facility] [address] [facility] [place] TYPE: Emergency COMPLAINT: - MULTIPLE COMPLAINTS DIAGNOSES: - Pain in left thigh - Allergy status to penicillin - Nicotine dependence, unspecified, uncomplicated 08/14/2020 05:10 [facility] [place] [facility] [place] TYPE: Emergency COMPLAINT: - CHEST PAIN DIAGNOSES: - Other chest pain - Nicotine dependence, unspecified, uncomplicated - Other stimulant abuse, uncomplicated - Allergy status to penicillin - Chest pain, unspecified 08/14/2020 02:07 [facility] [place] [facility] [place] TYPE: Emergency COMPLAINT: - DRUG USE DIAGNOSES: - Other longterm (current) drug therapy - Other stimulant use, unspecified, uncomplicated - Nicotine dependence, unspecified, uncomplicated - Allergy status to penicillin 08/05/2020 05:48 [facility] [place] TYPE: Emergency COMPLAINT: - CHEST PAIN,SOB DIAGNOSES: - Allergy status to penicillin - 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
== END 2020-08-21 04:50 | disposition home or self-care (01) ==
LOC: ED 03:56
DX: F15.10 Other stimulant abuse, uncomplicated (principal)
CPT/HCPCS: 99283

== ENCOUNTER 2020-08-22 00:23 | Emergency (ER) | payer OTHER ==
[~2020-08-22] VITALS: Ht 188 cm; Wt 113.8 kg
--- OUTSIDE RECORDS SUMMARY | 2020-08-22 00:26 | XMS ---
PreManage Notification: ZINA OLIVARES Security Behavioral Health Associate Events No recent Security Events currently on file CRITERIA MET - Group Notification - 6 ED Visits in 6 Months - [facility] - Has Care Guidelines - [facility] - 2 Visits in 30 Days CARE PROVIDERS SADIA HUERTA Emergency Medicine 06/26/2020-Current PHONE: [phone] Marci has no Care Guidelines for this patient. Care History Medical/Surgical 08/06/2020 [facility] Patient is aware of Walk In Clinic, but stated he will use ED when Clinic is not available.\T\nbsp; He has been advised by Health Advocate Bita King of mental health/addiction help.\T\nbsp; Patient understood, agreed to have her mail brochure to think about options. 07/30/2020 [facility] \T\middot;\T\nbsp; PATIENT WOULD BENEFIT FROM [facility]-PLEASE DISCUSS \T\middot;\T\nbsp; PLEASE CONTACT [facility]T\amp; D SERVICES- IF PATIENT ACCEPTS SERVICES- [phone] \T\middot;\T\nbsp; [facility] CAN PROVIDE PATIENT WITH LITHARGE SUPERVISOR AND HELP WITH COMMUNITY RESOURCES 07/07/2020 [facility] - PATIENT HAS AN APT ON 07/08/20 TO ESTABLISH CARE WITH SADIA MESA E.D. VISIT COUNT ([address] [facility] 15 HECTOR [place] TOTAL 16 NOTE: Visits indicate total known visits. ED/UCC VISIT TRACKING (12 MO.) 08/22/2020 00:24 [facility] [place] TYPE: Emergency COMPLAINT: - MULTIPLE COMPLAINTS 08/21/2020 20:30 [facility] [place] TYPE: Emergency COMPLAINT: - ANXIETY 08/21/2020 05:53 [facility] [place] TYPE: Emergency DIAGNOSES: - CHEST PAIN - Anxiety disorder, unspecified - Other stimulant abuse, uncomplicated 08/21/2020 03:[address] [facility] [place] TYPE: Emergency COMPLAINT: - PARASITES 08/20/2020 14:09 [facility] [place] TYPE: Emergency COMPLAINT: - CHEST/ABD PAIN 08/17/2020 16:29 [facility] [place] TYPE: Emergency COMPLAINT: - MULTIPLE COMPLAINTS DIAGNOSES: - Pain in left thigh - Allergy status to penicillin - Nicotine dependence, unspecified, uncomplicated 08/14/2020 05:10 [facility] [place] TYPE: Emergency COMPLAINT: - CHEST PAIN DIAGNOSES: - Other chest pain - Nicotine dependence, unspecified, uncomplicated - Other stimulant abuse, uncomplicated - Allergy status to penicillin - Chest pain, unspecified 08/14/2020 02:07 [facility] [place] TYPE: Emergency COMPLAINT: - DRUG USE DIAGNOSES: - Other retirement (current) drug therapy - Other stimulant use, [...] COMPLAINT: - POSSIBLE ABSCESS DIAGNOSES: - Other retirement (current) drug therapy - Nicotine dependence, unspecified, [...] - Other stimulant abuse, uncomplicated 06/25/2020 13:28 [facility] [place] TYPE: Emergency COMPLAINT: - FLANK PAIN DIAGNOSES: - Unspecified abdominal pain - Allergy status to penicillin - Nicotine dependence, unspecified, uncomplicated 05/24/2020 16:11 [facility] [place] TYPE: Emergency COMPLAINT: - SOB, CHEST PAIN DIAGNOSES: - Nicotine dependence, unspecified, uncomplicated - Allergy status to penicillin - Cellulitis of left upper limb - Chest pain, unspecified - Other psychoactive substance abuse, uncomplicated 05/23/2020 21:21 [facility] [place] TYPE: Emergency COMPLAINT: - ARM PAIN/ABSCESS DIAGNOSES: - Other specified abnormal findings of blood chemistry - Nicotine dependence, unspecified, uncomplicated - Cutaneous abscess of left upper limb - Allergy status to penicillin - Abnormal results of liver function studies - Chest pain, unspecified INPATIENT VISIT TRACKING (12 MO.) No inpatient visits to display in this time frame [id number]
== END 2020-08-22 02:30 | disposition home or self-care (01) ==
LOC: ED 00:23
DX: F15.10 Other stimulant abuse, uncomplicated (principal); R93.0 Abnormal findings on diagnostic imaging of skull and head, not elsewhere classified; F17.200 Nicotine dependence, unspecified, uncomplicated; Z88.0 Allergy status to penicillin
CPT/HCPCS: 70450; 99285-25

== ENCOUNTER 2020-08-24 02:48 | Emergency (ER) | payer OTHER ==
[~2020-08-24] VITALS: Ht 188 cm; Wt 113.4 kg
--- OUTSIDE RECORDS SUMMARY | 2020-08-24 02:50 | XMS ---
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 Care History Medical/Surgical 08/22/2020 [facility] - PLEASE CONTACT DEANDRA JarrettT\amp;D SERVICES IF PATIENT IS SEEN IN THE ED - IF PATIENT ALLOWS- [phone]. 08/06/2020 [facility] Patient is aware of Walk In Clinic, but stated he will use ED when Clinic is not available.\T\nbsp; He has been advised by Health Advocate Bita King of mental health/addiction help.\T\nbsp; Patient understood, agreed to have her mail brochure to think about options. 07/30/2020 [facility] \T\middot;\T\nbsp; PATIENT WOULD BENEFIT FROM [facility]-PLEASE DISCUSS \T\middot;\T\nbsp; PLEASE CONTACT [facility] A\T\amp; D SERVICES- IF PATIENT ACCEPTS SERVICES- [phone] \T\middot;\T\nbsp; [facility] CAN PROVIDE PATIENT WITH TITLE CHECKER AND HELP WITH COMMUNITY RESOURCES E.D. VISIT COUNT (12 MO.) 1 [facility] 1 [facility] 16 HECTOR T[place] TOTAL 18 NOTE: Visits indicate total known visits. ED/UCC VISIT TRACKING (12 MO.) 08/24/2020 02:49 [facility] [place] TYPE: Emergency COMPLAINT: - SWELLING BODY PARTS 08/22/2020 18:53 [facility] [place] TYPE: Emergency DIAGNOSES: - Delusional disorders - Cellulitis, unspecified - Elevation of levels of liver transaminase levels - Facial Pain - Insect Bite - Other stimulant abuse, uncomplicated - Skin Lesion - Worm Came out of Belly Button!!! - Facial Swelling 08/22/2020 00:24 [facility] [place] TYPE: Emergency COMPLAINT: - MULTIPLE COMPLAINTS 08/21/2020 20:30 [facility] [place] TYPE: Emergency COMPLAINT: - ANXIETY 08/21/2020 05:53 [facility] [place] TYPE: Emergency DIAGNOSES: - CHEST PAIN - Anxiety disorder, unspecified - Other stimulant abuse, uncomplicated 08/21/2020 03:56 [facility] [place] TYPE: Emergency COMPLAINT: - PARASITES 08/20/2020 14:09 [facility] [place] TYPE: Emergency COMPLAINT: - CHEST/ABD [...] COMPLAINT: - DRUG USE DIAGNOSES: - Other correction (current) drug therapy - Other stimulant use, unspecified, uncomplicated - Nicotine dependence, unspecified, uncomplicated - Allergy status to penicillin 08/05/2020 05:48 [facility] [place] TYPE: Emergency COMPLAINT: - CHEST PAIN,SOB DIAGNOSES: - Allergy status to penicillin - Other correction (current) drug therapy - Precordial pain - Nicotine dependence, unspecified, uncomplicated - Anxiety disorder, unspecified - Other stimulant use, unspecified, uncomplicated 07/11/2020 21:56 [facility] [place] TYPE: Emergency COMPLAINT: - POSSIBLE ABSCESS DIAGNOSES: - Other correction (current) drug therapy - Nicotine dependence, unspecified, [...] visits to display in this time frame [id number]
[2020-08-24] MEDS ORDERED: CLEOCIN HCL300 MG PO (12:56)
== END 2020-08-24 03:17 | disposition home or self-care (01) ==
LOC: ED 02:48
DX: F15.10 Other stimulant abuse, uncomplicated (principal); M79.89 Other specified soft tissue disorders; F41.9 Anxiety disorder, unspecified; F17.200 Nicotine dependence, unspecified, uncomplicated; Z88.0 Allergy status to penicillin
CPT/HCPCS: 99283

== ENCOUNTER 2020-08-24 06:06 | Emergency (ER) | payer OTHER ==
[~2020-08-24] VITALS: Ht 188 cm; Wt 113.4 kg
--- OUTSIDE RECORDS SUMMARY | 2020-08-24 06:10 | XMS ---
PreManage Notification: ZINA OLIVARES Security Non Linear Editor Events No recent Security Events currently on file CRITERIA MET - Group Notification - 6 ED Visits in 6 Months - [facility] - Has Care Guidelines - [facility] - 3 Facilities in 90 Days - [facility] - 2 Visits in 30 Days CARE PROVIDERS SADIA HUERTA Emergency Medicine 06/26/2020-Current PHONE: [phone] Marci has no Care Guidelines for this patient. Care History Medical/Surgical 08/22/2020 [facility] - PLEASE CONTACT DEANDRA JarrettT\amp;D SERVICES IF PATIENT IS SEEN IN THE ED - IF PATIENT ALLOWS- [phone]. 08/06/2020 [facility] Patient is aware of Walk In Clinic, but stated he will use ED when Clinic is not available.\T\nbsp; He has been advised by Health Advocate Bita King of mental health/addiction help.\T\nbsp; Patient understood, agreed to have her mail brochure to think about options. 07/30/2020 [facility] \T\middot;\T\nbsp; PATIENT WOULD BENEFIT FROM [facility]-PLEASE DISCUSS \T\middot;\T\nbsp; PLEASE CONTACT [facility] A\T\amp; D SERVICES- IF PATIENT ACCEPTS SERVICES- [phone] \T\middot;\T\nbsp; [facility] CAN PROVIDE PATIENT WITH COTTON ACREAGE MEASURER AND HELP WITH COMMUNITY RESOURCES E.D. VISIT COUNT (12 MO.) 1 [facility] 1 [facility] 17 HECTOR [place] TOTAL 19 NOTE: Visits indicate total known visits. ED/UCC VISIT TRACKING (12 MO.) 08/24/2020 06:07 [facility] [place] TYPE: Emergency COMPLAINT: - RESPIRATORY PROBLEMS 08/24/2020 02:49 [facility] [place] TYPE: Emergency COMPLAINT: - SWELLING BODY PARTS 08/22/2020 18:53 [facility] Annmarie [place] TYPE: Emergency DIAGNOSES: - Delusional disorders - Cellulitis, unspecified - Elevation of levels of liver transaminase levels - Facial Pain - Insect Bite - Other stimulant abuse, uncomplicated - Skin Lesion - Worm Came out of [place] Button!!! - Facial Swelling 08/22/2020 00:24 [facility] [place] TYPE: Emergency COMPLAINT: - MULTIPLE COMPLAINTS 08/21/2020 20:30 [facility] [place] TYPE: Emergency COMPLAINT: - ANXIETY 08/21/2020 05:53 [facility] [place] TYPE: Emergency DIAGNOSES: - CHEST PAIN - Anxiety disorder, unspecified - Other stimulant abuse, uncomplicated 08/21/2020 03:56 [facility] [place] TYPE: Emergency COMPLAINT: - PARASITES 08/20/2020 14:09 [facility] [place] TYPE: Emergency [...] COMPLAINT: - DRUG USE DIAGNOSES: - Other computer terminal operator (current) drug therapy - Other stimulant use, unspecified, uncomplicated - Nicotine dependence, unspecified, uncomplicated - Allergy status to penicillin 08/05/2020 05:48 [facility] [place] TYPE: Emergency COMPLAINT: - CHEST PAIN,SOB DIAGNOSES: - Allergy status to penicillin - Other snf (current) drug therapy - Precordial pain - Nicotine dependence, unspecified, uncomplicated - Anxiety disorder, unspecified - Other stimulant use, unspecified, uncomplicated 07/11/2020 21:56 [facility] [place] [place] TYPE: Emergency COMPLAINT: - POSSIBLE ABSCESS DIAGNOSES: - Other snf (current) drug therapy - Nicotine dependence, unspecified, uncomplicated - Allergy status to penicillin - Cellulitis of buttock 07/10/2020 04:42 [facility] [place] TYPE: Emergency COMPLAINT: - SOB DIAGNOSES: - Allergy status to penicillin - Shortness of breath - Nicotine dependence, unspecified, uncomplicated 07/05/2020 22:18 [facility] [place] TYPE: Emergency COMPLAINT: [...] visits to display in this time frame [id number]
[2020-08-24] MEDS ORDERED: CLEOCIN HCL300 MG PO (12:56)
--- NOTE | 2020-08-24 17:50 | EKG ---
[facility] [address] [place] [address] Signed Normal sinus rhythm Normal ECG When compared with ECG of 20-AUG-2020 14:16, Questionable change in QRS axis Non-specific change in ST segment in Inferior leads Confirmed by MARLENE LOCK DO ([id number]) on 08/24/2020 5:49:52 PM Electronically Signed By: MARLENE LOCK DO 08/24/20 1750 PATIENT NAME: ZINA OLIVARES Electrocardiogram DATE OF : 81 PHYSICIAN: MARLENE LOCK DO REPORT #: [id number] REPORT IS CONFIDENTIAL AND NOT TO BE RELEASED WITHOUT AUTHORIZATION
== END 2020-08-24 06:38 | disposition home or self-care (01) ==
LOC: ED 06:06
DX: F15.10 Other stimulant abuse, uncomplicated (principal); F29 Unspecified psychosis not due to a substance or known physiological condition; Z76.5 Malingerer [conscious simulation]; F17.200 Nicotine dependence, unspecified, uncomplicated; Z88.0 Allergy status to penicillin
CPT/HCPCS: 71045; 93005; 93010; 99285-25

== ENCOUNTER 2020-08-24 12:09 | Emergency (ER) | payer OTHER ==
[~2020-08-24] VITALS: Ht 188 cm; Wt 113.4 kg
--- OUTSIDE RECORDS SUMMARY | 2020-08-24 12:12 | XMS ---
PreManage Notification: ZINA OLIVARES Security Wire Brusher Events No recent Security Events currently on file CRITERIA MET - Group Notification - 6 ED Visits in 6 Months - [facility] - Has Care Guidelines - [facility] - 3 Facilities in 90 Days - [facility] - 2 Visits in 30 Days CARE PROVIDERS SADIA HUERTA Emergency Medicine 06/26/2020-Current PHONE: [phone] Marci has no Care Guidelines for this patient. Care History Medical/Surgical 08/22/2020 [facility] - PLEASE CONTACT DEANDRA JarrettT\amp;D SERVICES IF PATIENT IS SEEN IN THE ED - IF PATIENT ALLOWS- [phone]. 08/06/2020 [facility] Patient is aware of Walk In Clinic, but stated he will use ED when Clinic is not available.\T\nbsp; He has been advised by Health Advocate Bita King of mental health/addiction help.\T\nbsp; Patient understood, agreed to have her mail brochure to think about options. 07/30/2020 [facility] \T\middot;\T\nbsp; PATIENT WOULD BENEFIT FROM [facility]-PLEASE DISCUSS \T\middot;\T\nbsp; PLEASE CONTACT [facility] A\T\amp; D SERVICES- IF PATIENT ACCEPTS SERVICES- [phone] \T\middot;\T\nbsp; [facility] CAN PROVIDE PATIENT WITH PROMOTIONS TEAM LEADER AND HELP WITH COMMUNITY RESOURCES E.D. VISIT COUNT (12 MO.) 1 [facility] [address] [facility] 18 HECTOR [place] TOTAL 20 NOTE: Visits indicate total known visits. ED/UCC VISIT TRACKING (12 MO.) 08/24/2020 12:10 [facility] [place] TYPE: Emergency COMPLAINT: - RASH ON HEAD 08/24/2020 06:07 [facility] [place] TYPE: Emergency COMPLAINT: - RESPIRATORY PROBLEMS 08/24/2020 02:[address] [facility] [address] [facility] [place] TYPE: Emergency COMPLAINT: - SWELLING BODY PARTS 08/22/2020 18:53 [facility] Sofy [place] TYPE: Emergency DIAGNOSES: - Delusional disorders - Cellulitis, unspecified - Elevation of levels of liver transaminase levels - Facial Pain - Insect Bite - Other stimulant abuse, uncomplicated - Skin Lesion - Worm Came out of Belly Button!!! - Facial Swelling 08/22/2020 00:24 [facility] [place] TYPE: Emergency COMPLAINT: - MULTIPLE COMPLAINTS 08/21/2020 20:30 [facility] [place] TYPE: Emergency COMPLAINT: - ANXIETY 08/21/2020 05:53 [facility] [place] TYPE: Emergency DIAGNOSES: - CHEST PAIN - Anxiety disorder, unspecified - Other stimulant abuse, uncomplicated 08/21/2020 03:[address] [facility] [address] [facility] [place] TYPE: Emergency COMPLAINT: [...] COMPLAINT: - DRUG USE DIAGNOSES: - Other roasterman (current) drug therapy - Other stimulant use, unspecified, uncomplicated - Nicotine dependence, unspecified, uncomplicated - Allergy status to penicillin 08/05/2020 05:48 [facility] [place] TYPE: Emergency COMPLAINT: - CHEST PAIN,SOB DIAGNOSES: - Allergy status to penicillin - Other residential (current) drug therapy - Precordial pain - Nicotine dependence, unspecified, uncomplicated - Anxiety disorder, unspecified - Other stimulant use, unspecified, uncomplicated 07/11/2020 21:56 [facility] [place] TYPE: Emergency COMPLAINT: - POSSIBLE ABSCESS DIAGNOSES: - Other roasterman (current) drug therapy - Nicotine dependence, unspecified, [...] Other stimulant use, unspecified, uncomplicated 07/03/2020 16:49 [facility] [place] TYPE: Emergency COMPLAINT: - ANXIETY DIAGNOSES: - Allergy status to penicillin - Anxiety disorder, unspecified - Nicotine dependence, unspecified, uncomplicated - Other stimulant abuse, uncomplicated 06/25/2020 13:28 [facility] [place] TYPE: Emergency COMPLAINT: - FLANK PAIN DIAGNOSES: - Unspecified abdominal pain - Allergy status to penicillin - Nicotine dependence, unspecified, uncomplicated 05/24/2020 16:[address] [facility] [place] TYPE: Emergency COMPLAINT: - SOB, CHEST PAIN DIAGNOSES: - Nicotine dependence, unspecified, uncomplicated - Allergy status to penicillin - Cellulitis of left upper limb - Chest pain, unspecified - Other psychoactive substance abuse, uncomplicated 05/23/2020 21:21 [facility] [place] TYPE: Emergency COMPLAINT: - ARM PAIN/ABSCESS DIAGNOSES: - Other specified abnormal findings of blood chemistry - Nicotine dependence, unspecified, uncomplicated - Cutaneous abscess of left upper limb - Allergy status to penicillin - Abnormal results of liver function studies - Chest pain, unspecified INPATIENT VISIT TRACKING (12 MO.) No inpatient visits to display in this time frame [id number]
[2020-08-24] MEDS ORDERED: CLEOCIN HCL300 MG PO (12:56)
== END 2020-08-24 13:06 | disposition home or self-care (01) ==
LOC: ED 12:09
DX: R20.2 Paresthesia of skin (principal); L03.311 Cellulitis of abdominal wall; R58 Hemorrhage, not elsewhere classified; F17.200 Nicotine dependence, unspecified, uncomplicated; Z88.0 Allergy status to penicillin
CPT/HCPCS: 99283-25

== ENCOUNTER 2020-08-24 22:32 | Emergency (ER) | payer OTHER ==
[~2020-08-24] VITALS: Ht 188 cm; Wt 113.4 kg
[~2020-08-24 22:32] MED LIST changes: +CLEOCIN HCL300 MG PO
--- OUTSIDE RECORDS SUMMARY | 2020-08-24 22:36 | XMS ---
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 Care History Medical/Surgical 08/22/2020 [facility] - PLEASE CONTACT DEANDRA JarrettT\amp;D SERVICES IF PATIENT IS SEEN IN THE ED - IF PATIENT ALLOWS- [phone]. 08/06/2020 [facility] Patient is aware of Walk In Clinic, but stated he will use ED when Clinic is not available.\T\nbsp; He has been advised by Health Advocate Bita King of mental health/addiction help.\T\nbsp; Patient understood, agreed to have her mail brochure to think about options. 07/30/2020 [facility] \T\middot;\T\nbsp; PATIENT WOULD BENEFIT FROM [facility]-PLEASE DISCUSS \T\middot;\T\nbsp; PLEASE CONTACT [facility] A\T\amp; D SERVICES- IF PATIENT ACCEPTS SERVICES- [phone] \T\middot;\T\nbsp; [facility]T\[facility];D [facility] CAN PROVIDE PATIENT WITH EGG AND SPICE MIXER AND HELP WITH COMMUNITY RESOURCES E.D. VISIT COUNT (12 MO.) [address] 19 HECTOR [place] TOTAL 22 NOTE: Visits indicate total known visits. ED/UCC VISIT TRACKING (12 MO.) 08/24/2020 22:34 [facility] [place] TYPE: Emergency COMPLAINT: - PT STATES WORM IN FECES 08/24/2020 18:06 [facility] Annmarie [place] TYPE: Emergency DIAGNOSES: - Painful rash on head. dizziness - Irritant contact dermatitis due to other agents 08/24/2020 12:10 [facility] [place] TYPE: Emergency COMPLAINT: - RASH ON HEAD 08/24/2020 06:07 [facility] [place] TYPE: Emergency COMPLAINT: - RESPIRATORY PROBLEMS 08/24/2020 02:49 [facility] [place] TYPE: Emergency COMPLAINT: - SWELLING BODY PARTS 08/22/2020 18:53 [facility] [place] TYPE: Emergency DIAGNOSES: - Delusional disorders - Cellulitis, unspecified - Elevation of levels of liver transaminase levels - Facial Pain - Insect Bite - Other stimulant abuse, uncomplicated - Skin Lesion - Worm Came out of Belly Button!!! - Facial Swelling 08/22/2020 00:24 [facility] [place] TYPE: Emergency COMPLAINT: - MULTIPLE COMPLAINTS 08/21/2020 20:[address] [facility] [place] TYPE: Emergency COMPLAINT: - ANXIETY 08/21/2020 05:53 [facility] [place] TYPE: Emergency DIAGNOSES: - CHEST PAIN - Anxiety disorder, unspecified - Other stimulant abuse, uncomplicated 08/21/2020 03:56 [facility] [place] TYPE: Emergency COMPLAINT: - PARASITES [...] COMPLAINT: - DRUG USE DIAGNOSES: - Other mcfp (current) drug therapy - Other stimulant use, unspecified, uncomplicated - Nicotine dependence, unspecified, uncomplicated - Allergy status to penicillin 08/05/2020 05:48 [facility] [place] TYPE: Emergency COMPLAINT: - CHEST PAIN,SOB DIAGNOSES: - Allergy status to penicillin - Other assistant terminal manager (current) drug therapy - Precordial pain - Nicotine dependence, unspecified, uncomplicated - Anxiety disorder, unspecified - Other stimulant use, unspecified, uncomplicated 07/11/2020 21:56 [facility] [place] TYPE: Emergency COMPLAINT: - POSSIBLE ABSCESS DIAGNOSES: - Other assistant terminal manager (current) drug therapy - Nicotine dependence, unspecified, uncomplicated - Allergy status to penicillin - Cellulitis of buttock 07/10/2020 04:[address] [facility] [place] TYPE: Emergency COMPLAINT: - SOB DIAGNOSES: - Allergy status to penicillin - Shortness of breath - Nicotine dependence, unspecified, uncomplicated 07/05/2020 22:[address] [facility] [place] TYPE: Emergency COMPLAINT: - FLANK PLAIN DIAGNOSES: - Unspecified abdominal pain - Allergy status to penicillin - Nicotine dependence, unspecified, uncomplicated - Other stimulant use, unspecified, uncomplicated 07/03/2020 16:[address] [facility] [place] TYPE: Emergency COMPLAINT: - ANXIETY DIAGNOSES: - Allergy status to penicillin - Anxiety disorder, unspecified - Nicotine dependence, unspecified, uncomplicated - Other stimulant abuse, uncomplicated 06/25/2020 13:[address] [facility] [place] TYPE: Emergency COMPLAINT: - FLANK PAIN DIAGNOSES: - Unspecified abdominal pain - Allergy status to penicillin - Nicotine dependence, unspecified, uncomplicated Plus 2 More Visits INPATIENT VISIT TRACKING (12 MO.) No inpatient visits to display in this time frame [id number]
== END 2020-08-24 22:58 | disposition home or self-care (01) ==
LOC: ED 22:32
DX: F15.10 Other stimulant abuse, uncomplicated (principal); F22 Delusional disorders; F17.200 Nicotine dependence, unspecified, uncomplicated; Z88.0 Allergy status to penicillin
CPT/HCPCS: 99284-25

== ENCOUNTER 2020-08-27 13:39 | Emergency (ER) | payer OTHER ==
[~2020-08-27] VITALS: Ht 188 cm; Wt 113.4 kg
--- OUTSIDE RECORDS SUMMARY | 2020-08-27 13:40 | XMS ---
PreManage Notification: ZINA OLIVARES Security Escrow Secretary Events No recent Security Events currently on file CRITERIA MET - Group Notification - 6 ED Visits in 6 Months - [facility] - Has Care Guidelines - [facility] - 3 Facilities in 90 Days - [facility] - 2 Visits in 30 Days CARE PROVIDERS SADIA HUERTA Emergency Medicine 06/26/2020-Current PHONE: [phone] Michelle Garcia Community Health Worker 08/25/2020-Current PHONE: [phone] Marci has no Care Guidelines for this patient. Care History Medical/Surgical 08/25/2020 [facility] - CHW CONTACTED PATIENT- PATIENT STATED HE IS GOING TO HIS PCP APT TODAY WITH SADIA HUERTA AT 11:40AM 08/25/20. CHW DISCUSSED ED VISITS RECENTLY AND PATIENT STATED HE FEELS HE HAS PARASITES IN HIS BODY AND NO ONE IS HELPING HIM. CHW DISCUSSED IF PATIENT IS WILLING TO TALK WITH SOME PEER SUPPORTS HERE IN [place] IN REG[place] TO METHAMPHETAMINE USE AND PATIENT STATED HE WOULD BE INTERESTED. CHW STATED SHE WOULD CONTACT CLAUDIO IMMEDIATELY AND HAVE THEM CONTACT PATIENT. - CHW CALLED [facility]- [phone]-BEVERLY STATED THEY TRIED TO CONTACT PATIENT LAST WEEK AT HIS RESIDENCE AND PATIENT MOM LET DOG OUTSIDE IN THE YARD AND THE DOG CAME OUT AND BIT BEVERLY. SUMMER CAMP COUNSELOR WERE CALLED AND NOT SURE WHAT HAPPENED WITH THE DOG BUT PATIENT WAS SLEEPING AT THE TIME AND DID NOT COME OUTSIDE. - BEVERLY STATED SHE WOULD CALL PATIENT TODAY TO SEE IF SHE CAN CONTACT PATIENT TODAY AND SCHEDULE A TIME TO MEET. - CHW CONTACTED PCP AND PROVIDED UPDATE AND PROVIDED BEVERLY CONTACT NUMBER AT [facility] IF PATIENT WAS INTERESTED IN PEER SUPPORT SERVICES TODAY WHILE AT HIS APT WITH PCP. 08/22/2020 [facility] - PLEASE CONTACT [facility]- A\T\amp;D SERVICES IF PATIENT IS SEEN IN THE ED - IF PATIENT ALLOWS- [phone]. 08/06/2020 [facility] Patient is aware of Walk In Clinic, but stated he will use ED when Clinic is not available.\T\nbsp; He has been advised by Health Advocate Bita King of mental health/addiction help.\T\nbsp; Patient understood, agreed to have her mail brochure to think about options. E.D. VISIT COUNT (12 MO.) 1 [facility] 2 [facility] 20 [facility] TOTAL 23 NOTE: Visits indicate total known visits. ED/UCC VISIT TRACKING (12 MO.) 08/27/2020 13:39 [facility] TYPE: Emergency COMPLAINT: - HEADACHE 08/24/2020 22:34 [facility] [place] TYPE: Emergency COMPLAINT: - PT STATES WORM IN FECES 08/24/2020 18:06 [facility] Annmarie [place] TYPE: Emergency DIAGNOSES: - Painful rash on head. dizziness - Irritant contact dermatitis due to other agents 08/24/2020 12:10 [facility] [place] TYPE: Emergency COMPLAINT: - RASH ON HEAD 08/24/2020 06:07 [facility] [place] TYPE: Emergency COMPLAINT: - RESPIRATORY PROBLEMS DIAGNOSES: - Unspecified psychosis not due to a substance or known physiological condition - Allergy status to penicillin - Other stimulant abuse, uncomplicated - Nicotine dependence, unspecified, uncomplicated - Malingerer [conscious simulation] 08/24/2020 02:49 [facility] [place] TYPE: Emergency COMPLAINT: - SWELLING BODY PARTS 08/22/2020 18:53 [facility] Sofy [place] TYPE: Emergency DIAGNOSES: - Delusional disorders - Cellulitis, unspecified - Elevation of levels of liver transaminase levels - Facial Pain - Insect Bite - Other stimulant abuse, uncomplicated - Skin Lesion - Worm Came out of Belly Button!!! 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 [facility] Spicer[facility]ole [facility] [place] TYPE: Emergency COMPLAINT: - PARASITES 08/20/2020 14:09 [facility] [place] [facility] [place] TYPE: Emergency COMPLAINT: - CHEST/ABD PAIN DIAGNOSES: - Other talent development analyst (current) drug therapy - Other stimulant abuse with intoxication, unspecified - Allergy status to penicillin - Nicotine dependence, unspecified, uncomplicated - Chest pain, unspecified 08/17/2020 16:29 [facility] [place] [place] TYPE: Emergency COMPLAINT: - MULTIPLE COMPLAINTS DIAGNOSES: - Pain in left thigh - Allergy status to penicillin - Nicotine dependence, unspecified, uncomplicated 08/14/2020 05:[address] [facility] [address] [facility] [place] TYPE: Emergency COMPLAINT: - CHEST PAIN DIAGNOSES: - Other chest pain - Nicotine dependence, unspecified, uncomplicated - Other stimulant abuse, uncomplicated - Allergy status to penicillin - Chest pain, unspecified 08/14/2020 02:07 [facility] [place] TYPE: Emergency COMPLAINT: - DRUG USE DIAGNOSES: - Other alf (current) drug therapy - Other stimulant use, unspecified, uncomplicated - Nicotine dependence, unspecified, uncomplicated - Allergy status to penicillin 08/05/2020 05:48 [facility] [place] TYPE: Emergency COMPLAINT: - CHEST PAIN,SOB DIAGNOSES: - Allergy status to penicillin - Other talent development analyst (current) drug therapy - Precordial pain - [...] Other stimulant use, unspecified, uncomplicated 07/03/2020 16:[address] [facility] [address] [facility] [place] TYPE: Emergency COMPLAINT: - ANXIETY DIAGNOSES: - Allergy status to penicillin - Anxiety disorder, unspecified - Nicotine dependence, unspecified, uncomplicated - Other stimulant abuse, uncomplicated Plus 3 More Visits INPATIENT VISIT TRACKING (12 MO.) No inpatient visits to display in this time frame [id number]
== END 2020-08-27 16:42 | disposition home or self-care (01) ==
LOC: ED 13:39
DX: R51.9 Headache, unspecified (principal); F15.10 Other stimulant abuse, uncomplicated; R20.2 Paresthesia of skin; F17.200 Nicotine dependence, unspecified, uncomplicated; Z88.0 Allergy status to penicillin
CPT/HCPCS: 70496; 80048; 85025; 99284-25; Q9967

== ENCOUNTER 2020-08-29 01:35 | Emergency (ER) | payer OTHER ==
[~2020-08-29] VITALS: Ht 188 cm; Wt 113.4 kg
--- OUTSIDE RECORDS SUMMARY | 2020-08-29 01:36 | XMS ---
PreManage Notification: ZINA OLIVARES Security Adult Protective Caseworker Events No recent Security Events currently on file CRITERIA MET - Group Notification - 6 ED Visits in 6 Months - [facility] - Has Care Guidelines - [facility] - 3 Facilities in 90 Days - [facility] - 2 Visits in 30 Days CARE PROVIDERS SADIA HUERTA Emergency Medicine 06/26/2020-Current PHONE: [phone] Michelle Garcia Community Health Worker 08/25/2020-Current PHONE: [phone] Guidelines Source: [facility] Guidelines Date: 08/28/2020 Care Recommendation: Please refer this patient to our local [facility] [place] [facility] in [place], [place] [facility]; We are hoping he will take some assistance with his Meth abuse. Care History Medical/Surgical 08/25/2020 [facility] - CHW CONTACTED PATIENT- PATIENT STATED [...] PATIENT. - CHW CALLED [facility]- [phone]-BEVERLY STATED THEY TRIED TO CONTACT PATIENT LAST WEEK AT HIS RESIDENCE AND PATIENT MOM LET DOG OUTSIDE IN THE YARD AND THE DOG CAME OUT AND BIT BEVERLY. CHIEF ENGINEERING DIVISION WERE CALLED AND NOT SURE WHAT HAPPENED WITH THE DOG BUT PATIENT WAS SLEEPING AT THE TIME AND DID NOT COME OUTSIDE. - BEVERLY STATED SHE WOULD CALL PATIENT TODAY TO SEE IF SHE CAN CONTACT PATIENT TODAY AND SCHEDULE A TIME TO MEET. - CHW CONTACTED PCP AND PROVIDED UPDATE AND PROVIDED BEVERLY CONTACT NUMBER AT [facility] IF PATIENT WAS INTERESTED IN PEER SUPPORT SERVICES TODAY WHILE AT HIS APT WITH PCP. 08/22/2020 [facility] - PLEASE CONTACT [facility]- A\T\amp;D SERVICES IF PATIENT IS SEEN IN THE ED - IF PATIENT ALLOWS- [phone]. 08/06/2020 [facility] Patient is aware of Walk In Clinic, but stated he will use ED when Clinic is not available.\T\nbsp; He has been advised by Health Advocate Bita King of mental health/addiction help.\T\nbsp; Patient understood, agreed to have her mail brochure to think about options. 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 VISIT COUNT (12 MO.) 1 [place] [address] [facility] TOTAL 25 NOTE: Visits indicate total known visits. ED/UCC VISIT TRACKING (12 MO.) 08/29/2020 01:35 [facility] [place] TYPE: Emergency COMPLAINT: - HEAD PAIN 08/29/2020 00:15 [facility] [place] TYPE: Emergency COMPLAINT: - LUMP ON FACE 08/27/2020 13:39 [facility] [place] TYPE: Emergency COMPLAINT: - HEADACHE 08/24/2020 22:34 [facility] [place] TYPE: Emergency COMPLAINT: - PT STATES WORM IN FECES DIAGNOSES: - Allergy status to penicillin - Nicotine dependence, unspecified, uncomplicated - Other stimulant abuse, uncomplicated - Delusional disorders 08/24/2020 18:06 [facility] Annmarie [place] TYPE: Emergency DIAGNOSES: - Painful rash on head. dizziness - Irritant contact dermatitis due to other agents 08/24/2020 12:10 [facility] [place] TYPE: Emergency COMPLAINT: - RASH ON HEAD DIAGNOSES: - Allergy status to penicillin - Paresthesia of skin - Hemorrhage, not elsewhere classified - Cellulitis of abdominal wall - Rash and other nonspecific skin eruption - Nicotine dependence, unspecified, uncomplicated 08/24/2020 06:07 [facility] [place] TYPE: Emergency COMPLAINT: - RESPIRATORY PROBLEMS DIAGNOSES: - Unspecified psychosis not due to a substance or known physiological condition - Allergy status to penicillin - Other stimulant abuse, uncomplicated - Nicotine dependence, unspecified, uncomplicated - Malingerer [conscious simulation] 08/24/2020 02:49 [facility] TYPE: Emergency COMPLAINT: - SWELLING BODY PARTS DIAGNOSES: - Allergy status to penicillin - Anxiety disorder, unspecified - Other stimulant abuse, uncomplicated - Other specified soft tissue disorders - Nicotine dependence, unspecified, uncomplicated 08/22/2020 18:53 [facility] Sofy BECERRA TYPE: Emergency DIAGNOSES: - [...] Emergency COMPLAINT: - ANXIETY DIAGNOSES: - Other halfway (current) drug therapy - Nicotine dependence, unspecified, uncomplicated - 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 [place] TYPE: Emergency DIAGNOSES: - CHEST PAIN - Anxiety disorder, unspecified - Other stimulant abuse, uncomplicated 08/21/2020 03:56 [facility] [place] TYPE: Emergency COMPLAINT: - PARASITES DIAGNOSES: - Other stimulant abuse, uncomplicated 08/20/2020 14:09 [facility] [place] TYPE: Emergency COMPLAINT: - CHEST/ABD PAIN DIAGNOSES: - Other buttermaker continuous churn (current) drug therapy - Other stimulant abuse with intoxication, unspecified - Allergy status to penicillin - Nicotine dependence, unspecified, uncomplicated - Chest pain, unspecified 08/17/2020 16:29 [facility] [place] TYPE: Emergency COMPLAINT: - MULTIPLE [...] COMPLAINT: - DRUG USE DIAGNOSES: - Other buttermaker continuous churn (current) drug therapy - Other stimulant use, unspecified, uncomplicated - Nicotine dependence, unspecified, uncomplicated - Allergy status to penicillin 08/05/2020 05:48 [facility] [place] TYPE: Emergency COMPLAINT: - CHEST PAIN,SOB DIAGNOSES: - Allergy status to penicillin - Other buttermaker continuous churn (current) drug therapy - Precordial pain - Nicotine dependence, unspecified, uncomplicated - Anxiety disorder, unspecified - Other stimulant use, unspecified, uncomplicated 07/11/2020 21:56 [facility] [place] TYPE: Emergency COMPLAINT: - POSSIBLE ABSCESS DIAGNOSES: - Other buttermaker continuous churn (current) drug therapy - Nicotine dependence, unspecified, uncomplicated - Allergy status to penicillin - Cellulitis of buttock 07/10/2020 04:42 [facility] [place] TYPE: Emergency COMPLAINT: - SOB DIAGNOSES: - Allergy status to penicillin - Shortness of breath - Nicotine dependence, unspecified, uncomplicated Plus 5 More Visits INPATIENT VISIT TRACKING (12 MO.) No inpatient visits to display in this time frame [id number]
== END 2020-08-29 03:16 | disposition home or self-care (01) ==
LOC: ED 01:35
DX: F15.10 Other stimulant abuse, uncomplicated (principal); F17.200 Nicotine dependence, unspecified, uncomplicated; Z88.0 Allergy status to penicillin
CPT/HCPCS: 99284

== ENCOUNTER 2020-08-29 11:13 | Emergency (ER) | payer OTHER ==
[~2020-08-29] VITALS: Ht 188 cm; Wt 113.4 kg
--- OUTSIDE RECORDS SUMMARY | 2020-08-29 11:16 | XMS ---
PreManage Notification: ZINA OLIVARES Security Loss Prevention Analyst Events No recent Security Events currently on file CRITERIA MET - Group Notification - 6 ED Visits in 6 Months - [facility] - Has Care Guidelines - [facility] - 3 Facilities in 90 Days - [facility] - 2 Visits in 30 Days CARE PROVIDERS SADIA HUERTA Emergency Medicine 06/26/2020-Current PHONE: [phone] Michelle Garcia Community Health Worker 08/25/2020-Current PHONE: [phone] Guidelines Source: [facility] Guidelines Date: 08/28/2020 Care Recommendation: Please refer this patient to our local [facility] [place] [facility] in [place], [place] .\T[place]; We are hoping he will take some assistance with his Meth abuse. Care History Medical/Surgical 08/25/2020 [facility] - CHW CONTACTED PATIENT- PATIENT STATED [...] PATIENT. - CHW CALLED [facility]- [phone]-BEVERLY STATED THEY TRIED TO CONTACT PATIENT LAST WEEK AT HIS RESIDENCE AND PATIENT MOM LET DOG OUTSIDE IN THE YARD AND THE DOG CAME OUT AND BIT BEVERLY. SCIENCE TECHNICIANS WERE CALLED AND NOT SURE WHAT HAPPENED WITH THE DOG BUT PATIENT WAS SLEEPING AT THE TIME AND DID NOT COME OUTSIDE. - BEVERLY STATED SHE WOULD CALL PATIENT TODAY TO SEE IF SHE CAN CONTACT PATIENT TODAY AND SCHEDULE A TIME TO MEET. - CHW CONTACTED PCP AND PROVIDED UPDATE AND PROVIDED BEVERLY CONTACT NUMBER AT [facility] IF PATIENT WAS INTERESTED IN PEER SUPPORT SERVICES TODAY WHILE AT HIS APT WITH PCP. 08/22/2020 [facility] - PLEASE CONTACT [facility]- A\T\amp;D SERVICES IF PATIENT IS SEEN IN THE ED - IF PATIENT ALLOWS- [phone]. 08/06/2020 [facility] Patient is aware of Walk In Clinic, but stated he will use ED when Clinic is not available.\T\nbsp; He has been advised by Health Advocate Bita King of mental health/addiction help.\T\nbsp; Patient understood, agreed to have her mail brochure to think about options. Substance Use/Overdose 08/28/2020 [facility] Patient is abusing Meth, which is causing recurrent ER visits.\T\nbsp; He refuses to believe that Meth is causing him any problems.\T\nbsp; We are now trying to get him some Peer substance abuse assistance but he is not accepting that at this time.\T\nbsp; E.D. VISIT COUNT (12 MO.) 1 [place] [address] [facility] [place] TOTAL 26 NOTE: Visits indicate total known visits. ED/UCC VISIT TRACKING (12 MO.) 08/29/2020 11:13 [facility] [place] TYPE: Emergency COMPLAINT: - FACE PROBLEM 08/29/2020 01:35 [facility] [place] TYPE: Emergency COMPLAINT: - HEAD PAIN 08/29/2020 00:15 [facility] [place] TYPE: Emergency COMPLAINT: - LUMP ON FACE 08/27/2020 13:39 [facility] TYPE: Emergency COMPLAINT: - HEADACHE 08/24/2020 22:34 [facility] [place] TYPE: Emergency COMPLAINT: - PT STATES WORM IN FECES DIAGNOSES: - Allergy status to penicillin - Nicotine dependence, unspecified, uncomplicated - Other stimulant abuse, uncomplicated - Delusional disorders 08/24/2020 18:06 [facility] Annmarie B[place] TYPE: Emergency DIAGNOSES: - Painful [...] - Nicotine dependence, unspecified, uncomplicated 08/22/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 - Allergy status to penicillin - Delusional disorders 08/21/2020 05:53 [facility] [place] TYPE: Emergency DIAGNOSES: - CHEST PAIN - Anxiety disorder, unspecified - Other stimulant abuse, uncomplicated 08/21/2020 03:56 [facility] [place] TYPE: Emergency COMPLAINT: - PARASITES DIAGNOSES: - Other stimulant abuse, uncomplicated 08/20/2020 14:09 [facility] [place] TYPE: Emergency COMPLAINT: - CHEST/ABD PAIN DIAGNOSES: - Other group home (current) drug therapy - Other stimulant abuse with intoxication, unspecified - Allergy status to penicillin - Nicotine dependence, unspecified, uncomplicated - Chest pain, unspecified 08/17/2020 16:29 [facility] [place] TYPE: Emergency [...] penicillin - Chest pain, unspecified 08/14/2020 02:07 [facility] [place] [place] TYPE: Emergency COMPLAINT: - DRUG USE DIAGNOSES: - Other termite treater helper (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) drug 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 - Other stimulant use, unspecified, uncomplicated - Nicotine dependence, unspecified, uncomplicated - Allergy status to penicillin 08/05/2020 05:48 [facility] [place] TYPE: Emergency COMPLAINT: - CHEST PAIN,SOB DIAGNOSES: - Allergy status to penicillin - Other group home (current) drug therapy - Precordial pain - Nicotine dependence, unspecified, uncomplicated - Anxiety disorder, unspecified - Other stimulant use, unspecified, uncomplicated 07/11/2020 21:56 [facility] [place] TYPE: Emergency COMPLAINT: - POSSIBLE ABSCESS DIAGNOSES: - Other group home (current) drug therapy - Nicotine dependence, unspecified, uncomplicated - Allergy status to penicillin - Cellulitis of buttock Plus 6 More Visits INPATIENT VISIT TRACKING (12 MO.) No inpatient visits to display in this time frame [email or web address]
== END 2020-08-29 11:40 | disposition left against medical advice (07) ==
LOC: ED 11:13
DX: R20.2 Paresthesia of skin (principal); F15.10 Other stimulant abuse, uncomplicated; F17.200 Nicotine dependence, unspecified, uncomplicated; Z88.0 Allergy status to penicillin
CPT/HCPCS: 99282

== ENCOUNTER 2020-08-30 11:49 | Emergency (ER) | payer OTHER ==
[~2020-08-30] VITALS: Ht 188 cm; Wt 113.4 kg
--- OUTSIDE RECORDS SUMMARY | 2020-08-30 11:52 | XMS ---
PreManage Notification: ZINA OLIVARES Security Stove Installer Events No recent Security Events currently on file CRITERIA MET - Group Notification - 6 ED Visits in 6 Months - [facility] - Has Care Guidelines - [facility] - 3 Facilities in 90 Days - [facility] - 2 Visits in 30 Days CARE PROVIDERS SADIA HUERTA Emergency Medicine 06/26/2020-Current PHONE: [phone] Michelle Garcia Community Health Worker 08/25/2020-Current PHONE: [phone] Guidelines Source: [facility] Guidelines Date: 08/28/2020 Care Recommendation: Please refer this patient to our local [facility] [place] [facility] in [place], [place] .\T[facility]; We are hoping he will take some assistance with his Meth abuse. Care History Medical/Surgical 08/25/2020 [facility] - CHW CONTACTED PATIENT- PATIENT STATED HE [...] PATIENT. - CHW CALLED [facility]- [phone]-BEVERLY STATED THEY TRIED TO CONTACT PATIENT LAST WEEK AT HIS RESIDENCE AND PATIENT MOM LET DOG OUTSIDE IN THE YARD AND THE DOG CAME OUT AND BIT BEVERLY. JD [employer]WARDS CONSULTANT WERE CALLED AND NOT SURE WHAT HAPPENED WITH THE DOG BUT PATIENT WAS SLEEPING AT THE TIME AND DID NOT COME OUTSIDE. - BEVERLY STATED SHE WOULD CALL PATIENT TODAY TO SEE IF SHE CAN CONTACT PATIENT TODAY AND SCHEDULE A TIME TO MEET. - CHW CONTACTED PCP AND PROVIDED UPDATE AND PROVIDED BEVERLY CONTACT NUMBER AT [facility] IF PATIENT WAS INTERESTED IN PEER SUPPORT SERVICES TODAY WHILE AT HIS APT WITH PCP. 08/22/2020 [facility] - PLEASE CONTACT [facility]- A\T\amp;D SERVICES IF PATIENT IS SEEN IN THE ED - IF PATIENT ALLOWS- [phone]. 08/06/2020 [facility] Patient is aware of Walk In Clinic, but stated he will use ED when Clinic is not available.\T\nbsp; He has been advised by Health Advocate Bita King of mental health/addiction help.\T\nbsp; Patient understood, agreed to have her mail brochure to think about options. Substance Use/Overdose 08/28/2020 [facility] Patient is abusing Meth, which is causing recurrent ER visits.\T\nbsp; He refuses to believe that Meth is causing him any problems.\T\nbsp; We are now trying to get him some Peer substance abuse assistance but he is not accepting that at this time.\T\nbsp; E.D. VISIT COUNT (12 MO.) [address] 24 H[facility] [place] TOTAL 27 NOTE: Visits indicate total known visits. ED/UCC VISIT TRACKING (12 MO.) 08/30/2020 11:49 [facility] [place] TYPE: Emergency COMPLAINT: - DRUG ABUSE 08/29/2020 11:13 [facility] [place] TYPE: Emergency [...] abuse, uncomplicated - Delusional disorders 08/24/2020 18:06 [facility] Annmarie BEC[place] TYPE: Emergency DIAGNOSES: - [...] - Malingerer [conscious simulation] 08/24/2020 02:49 [facility] [place] COMPLAINT: - SWELLING BODY PARTS DIAGNOSES: - Allergy status to penicillin - Anxiety disorder, unspecified - Other stimulant abuse, uncomplicated - Other specified soft tissue disorders - Nicotine dependence, unspecified, uncomplicated 08/22/2020 18:53 [facility] [place] TYPE: Emergency DIAGNOSES: - Delusional disorders - Cellulitis, unspecified - Elevation of levels of liver transaminase levels - Facial Pain - Insect Bite - Other stimulant abuse, uncomplicated - Skin Lesion - Worm Came out of Belly Button!!! 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) No inpatient visits to display in this time frame [id number]
== END 2020-08-31 20:53 | disposition home or self-care (01) ==
LOC: ED 11:49
DX: F29 Unspecified psychosis not due to a substance or known physiological condition (principal); F15.10 Other stimulant abuse, uncomplicated; R45.1 Restlessness and agitation; F22 Delusional disorders; R20.2 Paresthesia of skin; Z20.822 Contact with and (suspected) exposure to COVID-19; F41.9 Anxiety disorder, unspecified; F17.200 Nicotine dependence, unspecified, uncomplicated; Z88.0 Allergy status to penicillin
CPT/HCPCS: 80048; 80053; 80176; 81001; 82550; 84443; 85025; 96372; 99285; C9803; J2060; J7030; U0003

== ENCOUNTER 2020-09-29 19:25 | Emergency (ER) | payer SELFPAY ==
[~2020-09-29] VITALS: Ht 188 cm; Wt 113.4 kg
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
[2020-09-29] MEDS ORDERED: ZYPREXA5 MG PO (19:59)
[2020-09-29] MEDS ORDERED: HYDROXYZINE HCL10 MG PO (20:00)
== END 2020-09-29 21:50 | disposition home or self-care (01) ==
LOC: ED 19:25
DX: F15.129 Other stimulant abuse with intoxication, unspecified (principal); F17.200 Nicotine dependence, unspecified, uncomplicated; Z88.0 Allergy status to penicillin; Z79.899 Other long term (current) drug therapy
CPT/HCPCS: 81001; 96372; 99284-25; J1200; J1630; J2060

== ENCOUNTER 2021-03-29 19:04 | Emergency (ER) | payer OTHER ==
[~2021-03-29] VITALS: Ht 188 cm; Wt 113.4 kg
[~2021-03-29 19:04] MED LIST changes: +HYDROXYZINE HCL10 MG PO; +ZYPREXA5 MG PO
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
== END 2021-03-29 20:29 | disposition home or self-care (01) ==
LOC: ED 19:04
DX: F15.10 Other stimulant abuse, uncomplicated (principal); F17.200 Nicotine dependence, unspecified, uncomplicated; Z88.0 Allergy status to penicillin; Z79.899 Other long term (current) drug therapy
CPT/HCPCS: 81001; 99284